=== PATIENT | male | born 1935 | race Caucasian/White ===

== ENCOUNTER 2017-12-19 11:47 | Emergency (ER) | payer OTHER, MEDICAID ==
[~2017-12-19] VITALS: Ht 170.2 cm; Wt 72.6 kg
[~2017-12-19 11:47] MED LIST: LANTUS SOL100 UNIT/1 SUBQ
[2017-12-19 12:09] VITALS: BP 109/65
[2017-12-19] MEDS ORDERED: Ampicillin/Sulbactam Sod 3 GM in NS 110 ML IV SCH (12:45)
[2017-12-19 13:24] LABS: BASOPHILS % (AUTO) 0.7 % (0.0-2.0); EOSINOPHILS % (AUTO) 3.4 % (0.0-3.0); HEMATOCRIT 34.6 % (42.0-52.0); HEMOGLOBIN 11.6 G/DL (14.2-18.0); LYMPHOCYTES % (AUTO) 4.8 % (20.0-45.0); MEAN CORPUSCULAR VOLUME 88 FL (80-99); MONOCYTES % (AUTO) 7.3 % (1.0-10.0); NEUTROPHILS % (AUTO) 83.8 % (45.0-75.0); PLATELET COUNT 177 K/UL (150-450); RED BLOOD COUNT 3.93 M/UL (4.70-6.10); RED CELL DISTRIBUTION WIDTH 12.3 % (11.6-14.8); WHITE BLOOD COUNT 9.4 K/UL (4.8-10.8)
[2017-12-19 13:29] LABS: ANION GAP 9 mmol/L (5-15); BLOOD UREA NITROGEN 41 mg/dL (7-18); CALCIUM 8.8 MG/DL (8.5-10.1); CARBON DIOXIDE 28 MMOL/L (21-32); CHLORIDE 101 MMOL/L (98-107); CREATININE 1.9 MG/DL (0.55-1.30); POTASSIUM 3.7 MMOL/L (3.5-5.1); SODIUM 138 MMOL/L (136-145)
[2017-12-19 13:42] LABS: ALANINE AMINOTRANSFERASE 31 U/L (12-78); ALBUMIN 3.2 G/DL (3.4-5.0); ALBUMIN/GLOBULIN RATIO 0.8 (1.0-2.7); ALKALINE PHOSPHATASE 129 U/L (46-116); ASPARTATE AMINO TRANSFERASE 24 U/L (15-37); BILIRUBIN,TOTAL 0.6 MG/DL (0.2-1.0); CKMB 1.7 NG/ML (0.0-3.6); CREATINE KINASE 52 U/L (26-308)
[2017-12-19] MEDS ORDERED: Unasyn 3gm Inj ONE (13:51)
[2017-12-19] MEDS ORDERED: FUROSEMIDE20 M1 ORAL (14:06)
[2017-12-19] MEDS ORDERED: ZOFRAN4 M3 ORAL (14:06)
[2017-12-19] MEDS ORDERED: ALLOPURINOL100 M1 ORAL (14:06)
[2017-12-19] MEDS ORDERED: STARLIX60 MG ORAL (14:06)
[2017-12-19] MEDS ORDERED: FOLIC ACID1 MG ORAL (14:06)
[2017-12-19] MEDS ORDERED: PATANOL1 DROP OD (14:06)
[2017-12-19] MEDS ORDERED: BENADRYL25 MG ORAL (14:06)
[2017-12-19] MEDS ORDERED: FERROUS SULFAT325 MG ORAL (14:06)
[2017-12-19] MEDS ORDERED: NAMENDA5 MG ORAL (14:06)
[2017-12-19] MEDS ORDERED: CRESTOR10 M2 ORAL (14:06)
[2017-12-19] MEDS ORDERED: IPRATROPIU0.2 MG/1 M HHN (14:06)
[2017-12-19] MEDS ORDERED: ACETAMINOP160 MG/54 ORAL (14:06)
[2017-12-19 15:51] VITALS: BP 112/68
--- NOTE | 2017-12-19 15:54 | Emergency Room Report ---
History of Present Illness General Chief Complaint: Fever Source: Patient, EMS Present Illness HPI Patient is a 82-year-old male sent in by long term after increased fever. Patient had gradual onset of symptoms the patient was noted to have a history of sternotomy. the patient denied any cough. He reported having some leg swelling. He reported having some fever. The patient cannot state where he lives. History is limited by patient's confusion. Allergies: Coded Allergies: No Known Allergies (Unverified , 12/09/13) Patient History Past Medical History: see triage record Reviewed Nursing Documentation: PMH: Agreed, PSxH: Agreed Nursing Documentation-PMH Hx Cardiac Problems: No Hx Diabetes: Yes Hx Cancer: No Hx Gastrointestinal Problems: No Hx Neurological Problems: Yes Hx Weakness: Yes Hx Fatigue: Yes Review of Systems All Other Systems: limited - by confusion Physical Exam Vital Signs Date Time Temp Pulse Resp B/P (MAP) Pulse Ox O2 Delivery O2 Flow Rate FiO2 12/19/17 11:49 98.8 92 18 109/65 97 Room Air 98.8 Sp02 EP Interpretation: reviewed, normal General Appearance: normal inspection, well appearing, no apparent distress, alert, GCS 15 Head: atraumatic ENT: normal ENT inspection, hearing grossly normal, normal voice Neck: normal inspection, full range of motion, supple, no bony tend Respiratory: normal inspection, lungs clear, normal breath sounds, no respiratory distress, no retraction, no wheezing Cardiovascular #1: regular rate, rhythm, no edema Gastrointestinal: normal inspection, normal bowel sounds, non tender, soft, no guarding, no hernia Genitourinary: no CVA tenderness Musculoskeletal: normal inspection, back normal, normal range of motion Neurologic: normal inspection, alert, oriented x3, responsive, manager auto III-XII nml as tested, speech normal Psychiatric: normal inspection, judgement/insight normal, mood/affect normal Skin: normal inspection, normal color, no rash Medical Decision Making Diagnostic Impression: Primary Impression: Pneumonia ER Course Patient presented for fever. Differential diagnosis included wasn't limited to pneumonia, urinary tract infection, drug fever, allergic reaction, sepsis, cholecystitis, among others.Because of complexity of patient's case laboratory testing and imaging studies were ordered. EKG interpreted by me as normal sinus rhythm with a rate of [address] or T wave changes. Chest x-ray one view interpreted by me showed questionable left-sided infiltrate patient was given IV antibiotics. Blood cultures were drawn. Patient was discussed with [facility] physician who agreed to accept the patient transfer.The patient's initial troponin was noted to be nondiagnostic per patient was given aspirin empirically. Labs Test 12/19/17 13:00 White Blood Count 9.4 K/UL (4.8-10.8) Red Blood Count 3.93 M/UL (4.70-6.10) Hemoglobin 11.6 G/DL (14.2-18.0) Hematocrit 34.6 % (42.0-52.0) Mean Corpuscular Volume 88 FL (80-99) Mean Corpuscular Hemoglobin 29.5 PG (27.0-31.0) Mean Corpuscular Hemoglobin Concent 33.5 G/DL (32.0-36.0) Red Cell Distribution Width 12.3 % (11.6-14.8) Platelet Count 177 K/UL (150-450) Mean Platelet Volume 7.4 FL (6.5-10.1) Neutrophils (%) (Auto) 83.8 % (45.0-75.0) Lymphocytes (%) (Auto) 4.8 % (20.0-45.0) Monocytes (%) (Auto) 7.3 % (1.0-10.0) Eosinophils (%) (Auto) 3.4 % (0.0-3.0) Basophils (%) (Auto) 0.7 % (0.0-2.0) Prothrombin Time 10.7 SEC (9.30-11.50) Prothromb Time International Ratio 1.0 (0.9-1.1) Activated Partial Thromboplast Time 41 SEC (23-33) Sodium Level 138 MMOL/L (136-145) Potassium Level 3.7 MMOL/L (3.5-5.1) Chloride Level 101 MMOL/L (98-107) Carbon Dioxide Level 28 MMOL/L (21-32) Anion Gap 9 mmol/L (5-15) Blood Urea Nitrogen 41 mg/dL (7-18) Creatinine 1.9 MG/DL (0.55-1.30) Estimat Glomerular Filtration Rate mL/min (>60) Glucose Level 165 MG/DL (74-106) Lactic Acid Level 0.90 mmol/L (0.66-2.22) Calcium Level 8.8 MG/DL (8.5-10.1) Total Bilirubin 0.6 MG/DL (0.2-1.0) Aspartate Amino Transf (AST/SGOT) 24 U/L (15-37) Alanine Aminotransferase (ALT/SGPT) 31 U/L (12-78) Alkaline Phosphatase 129 U/L (46-116) Total Creatine Kinase 52 U/L (26-308) Creatine Kinase MB 1.7 NG/ML (0.0-3.6) Creatine Kinase MB Relative Index 3.2 Troponin I 0.576 ng/mL (0.000-0.056) Total Protein 7.0 G/DL (6.4-8.2) Albumin 3.2 G/DL (3.4-5.0) Globulin 3.8 g/dL Albumin/Globulin Ratio 0.8 (1.0-2.7) Last Vital Signs Date Time Temp Pulse Resp B/P (MAP) Pulse Ox O2 Delivery O2 Flow Rate FiO2 12/19/17 15:51 98.8 87 20 112/68 96 Room Air 98.8 Status: unchanged Disposition: XFER T-TRM HOSP Condition: Serious Referrals: MATTHEW CALLAHAN (PCP) Aston Alarcon Dec 19, 2017 15:54
[2017-12-19] MEDS ORDERED: Aspirin Baby 81mg ORAL ONE (16:00)
--- NOTE | 2017-12-19 16:27 | Diagnostic Imaging Report ---
Indication: Shortness of breath, fever Technique: One view of the chest Comparison: 12/11/2013 Findings: There is retrocardiac infiltrate. There is bilateral left greater than right pleural effusions. The heart is enlarged. Evidence of prior CABG. There is right basilar atelectasis Impression: Left greater than right pleural effusions Left basilar infiltrate
[2017-12-19 16:30] VITALS: BP 112/68
--- NOTE | 2017-12-20 18:37 | Cardiology Report ---
APPROVED REPORT EKG Measurement Heart [id number] Sinus rhythm with 1st degree AV block with premature atrial complexes Anterior infarct, age undetermined Abnormal ECG
== END 2017-12-19 20:01 | disposition short-term general hospital (02) ==
LOC: EDBD 11:47 → EMR 14:30
DX: J18.9 Pneumonia, unspecified organism (principal); R41.0 Disorientation, unspecified; E11.9 Type 2 diabetes mellitus without complications
CPT/HCPCS: 36415; 71045; 80053; 82550; 82553; 83605; 84484; 85025; 85610; 85730; 86710; 87040; 93005; 96374; 99285

== ENCOUNTER 2019-07-15 07:09 | Inpatient (IN) | payer MEDICARE, MEDICAID ==
[~2019-07-15] VITALS: Ht 167.6 cm; Wt 66.5 kg
[2019-07-15] VITALS (7 sets, daily range): BP systolic 114–172; BP diastolic 56–82
[~2019-07-15 07:09] MED LIST changes: +ACETAMINOP160 MG/54 ORAL; +ALLOPURINOL100 M1 ORAL; +BENADRYL25 MG ORAL; +CRESTOR10 M2 ORAL; +FERROUS SULFAT325 MG ORAL; +FOLIC ACID1 MG ORAL; +FUROSEMIDE20 M1 ORAL; +IPRATROPIU0.2 MG/1 M HHN; +NAMENDA5 MG ORAL; +PATANOL1 DROP BOTH EYES; +STARLIX60 MG ORAL; +ZOFRAN4 M3 ORAL
--- NOTE | 2019-07-15 07:20 | NUR ---
ED Nurse Note: PT AAOX1, VSS. NO ACUTE DISTRESS. PATIENT BROUGHT IN BY [facility] RA 60 FROM [facility] C/O ALTERED MENTAL STATUS X 0600. AT BED SIDE.
--- NOTE | 2019-07-15 07:22 | Emergency Room Report ---
History of Present Illness General Chief Complaint: Altered Mental Status Source: Patient Present Illness HPI Disclaimer: Please note that this report is being documented using [employer] technology. This can lead to erroneous entry secondary to incorrect interpretation by the dictating instrument. HPI: 84-year-old male with a history of hypertension, hyperlipidemia, diabetes, CAD status post CABG presents from his senior care facility for evaluation of altered mental status. The patient was last seen normal approximately 11 PM last evening. On wellness checks this morning at 6 AM staff found him somnolent and increasingly confused. Reportedly, his baseline is conversant, oriented to self. Unknown what his ambulation status is. No reported illness according to EMS in the past few weeks. They found him saturating 92% on room air. Fingerstick glucose was 96. EMS states that on the ride to the hospital the patient became lucid and was able to correctly say his name, age and date of . By the time they arrived to our emergency department he was again somnolent, nonverbal. POLST form accompanying the patient from his facility states he is full code PMH: Hypertension, hyperlipidemia, diabetes, CAD PSH: CABG noted in medical chart Allergies: None reported Social Hx: None reported Allergies: Coded Allergies: No Known Allergies (Unverified , 12/09/13) Nursing Documentation-PMH Past Medical History: No History, Except For Hx Cardiac Problems: No Hx Diabetes: Yes Hx Cancer: No Hx Gastrointestinal Problems: No Hx Neurological Problems: Yes Hx Weakness: Yes Hx Fatigue: Yes Review of Systems All Other Systems: limited - Could not obtain due to clinical condition Physical Exam Vital Signs Date Time Temp Pulse Resp B/P (MAP) Pulse Ox O2 Delivery O2 Flow Rate FiO2 07/15/19 07:11 98.1 72 16 160/79 (106) 94 Room Air General: Somnolent, arousable to minimal stimuli but nonverbal responses HEENT: NC/AT. No scalp or face hematomas, lacerations or abrasions. Pupils are 4 mm and reactive bilaterally. EOMI. no facial droop. Dry mucous membranes Neck: Supple, trachea midline Chest Wall: No tenderness, no deformity Cardiovascular: Regular rate and rhythm. There is possibly a systolic ejection murmur at the left sternal border however is difficult to appreciate Resp: Normal work of breathing. No cough, wheezing or crackles appreciated Abdomen: Abdomen is soft, nondistended. Nontender Skin: Intact. No abrasions, laceration or rash over the exposed skin MSK: Normal tone and bulk. Moving all extremities. No obvious deformity. No edema over the lower extremities Neuro: Somnolent, arousable to mild stimulation. GCS is 9. E2, V2, M4 facial expressions are symmetrical Medical Decision Making Diagnostic Impression: Primary Impression: Pneumonia Additional Impressions: UTI (urinary tract infection) Encephalopathy CRF (chronic renal failure) ER Course 84-year-old male presents for evaluation of altered mental status with last known normal approximately 11 PM this evening. EMS stated he was lucid and again deteriorated on route. He arrives with stable vital signs, nonlabored breathing, no tachycardia and afebrile. He has no focal deficits though is very somnolent falling asleep during exam immediately after opening his eyes after a mild stimulation. We will start broad metabolic and infectious work- up. No reported head injury and there are no outward signs of trauma but will obtain CT scan of the head if no other source for his altered mentation is identified. Laboratory Tests Test 07/15/19 07:15 07/15/19 07:31 White Blood Count 9.8 K/UL (4.8-10.8) Red Blood Count 4.02 M/UL (4.70-6.10) L Hemoglobin 12.2 G/DL (14.2-18.0) L Hematocrit 36.1 % (42.0-52.0) L Mean Corpuscular Volume 90 FL (80-99) Mean Corpuscular Hemoglobin 30.2 PG (27.0-31.0) Mean Corpuscular Hemoglobin Concent 33.7 G/DL (32.0-36.0) Red Cell Distribution Width 12.1 % (11.6-14.8) Platelet Count 201 K/UL (150-450) Mean Platelet Volume 5.7 FL (6.5-10.1) L Neutrophils (%) (Auto) 73.4 % (45.0-75.0) Lymphocytes (%) (Auto) 14.8 % (20.0-45.0) L Monocytes (%) (Auto) 6.2 % (1.0-10.0) Eosinophils (%) (Auto) 4.7 % (0.0-3.0) H Basophils (%) (Auto) 0.9 % (0.0-2.0) Sodium Level 144 MMOL/L (136-145) Potassium Level 4.0 MMOL/L (3.5-5.1) Chloride Level 108 MMOL/L (98-107) H Carbon Dioxide Level 28 MMOL/L (21-32) Anion Gap 8 mmol/L (5-15) Blood Urea Nitrogen 49 mg/dL (7-18) H Creatinine 1.9 MG/DL (0.55-1.30) H Estimate Glomerular Filtration Rate mL/min (>60) Glucose Level 98 MG/DL (74-106) Lactic Acid Level 0.60 mmol/L (0.4-2.0) Calcium Level 9.8 MG/DL (8.5-10.1) Phosphorus Level 3.9 MG/DL (2.5-4.9) Magnesium Level 2.3 MG/DL (1.8-2.4) Total Bilirubin 0.7 MG/DL (0.2-1.0) Aspartate Amino Transferase (AST) 21 U/L (15-37) Alanine Aminotransferase (ALT) 20 U/L (12-78) Alkaline Phosphatase 151 U/L (46-116) H Total Creatine Kinase 41 U/L (26-308) Creatine Kinase MB 1.3 NG/ML (0.0-3.6) Creatine Kinase MB Relative Index 3.1 Troponin I 0.016 ng/mL (0.000-0.056) Pro-B-Type Natriuretic Peptide 919 pg/mL (0-125) H Total Protein 7.7 G/DL (6.4-8.2) Albumin 3.2 G/DL (3.4-5.0) L Globulin 4.5 g/dL Albumin/Globulin Ratio 0.7 (1.0-2.7) L Urine Color Pale yellow Urine Appearance Slightly cloudy Urine pH 5 (4.5-8.0) Urine Specific [place] 1.015 (1.005-1.035) Urine Protein 2+ (NEGATIVE) H Urine Glucose (UA) Negative (NEGATIVE) Urine Ketones Negative (NEGATIVE) Urine Blood 2+ (NEGATIVE) H Urine Nitrite Negative (NEGATIVE) Urine Bilirubin Negative (NEGATIVE) Urine Urobilinogen Normal MG/DL (0.0-1.0) Urine Leukocyte Esterase 3+ (NEGATIVE) H Urine RBC 10-15 /HPF (0 - 0) H Urine WBC Tntc /HPF (0 - 0) H Urine Squamous Epithelial Cells Occasional /LPF Urine Bacteria Moderate /HPF (NONE) H EKG Diagnostic Results EKG Time: :27 Rate: normal Rhythm: NSR ST Segments: no acute changes Other Impression Sinus rhythm, normal axis, prolonged CA interval at 2 1 4 ms consistent with first-degree AV block. No ST segment changes. Rhythm Strip Diag. Results Rhythm Strip Time: :27 EP Interpretation: yes Rate: 60s Rhythm: NSR, no PVC's, no ectopy Chest X-Ray Diagnostic Results Chest X-Ray Diagnostic Results : Chest X-Ray Ordered: Yes # of Views/Limited/Complete: 1 View Indication: Other - Altered mental status EP Interpretation: Yes Interpretation: other - Cardiomegaly, questionable infiltrate left lower lobe Impression: Other - Possible infiltrate left lower lobe Electronically Signed by: Electronically signed by Dr. Genaro Anthony Reevaluation Time: 09:39 Last Vital Signs Date Time Temp Pulse Resp B/P (MAP) Pulse Ox O2 Delivery O2 Flow Rate FiO2 07/15/19 07:11 98.1 72 16 160/79 (106) 94 Room Air Status: unchanged Reevaluation Impression CT scan of the head shows no acute changes but is consistent with atrophy and chronic small vessel disease. Questionable infiltrate on the left lower lobe on x-ray though somewhat obscured by the enlarged heart. Labs show ashutosh urinary tract infection the patient received ceftriaxone and azithromycin. Creatinine is elevated though unchanged from the value of 1.9 seen in 2018. No more recent studies are available. Continue IV fluids. He will be admitted to the hospital for UTI and encephalopathy with possible pneumonia. Disposition: ADMITTED INPATIENT Condition: Stable Genaro Anthony MD Jul 15, 2019 07:22
--- NOTE | 2019-07-15 07:40 | NUR ---
ED Nurse Note: BLOOD, URINE, AND X-RAY COMPLETE.
[2019-07-15 08:20] LABS: BASOPHILS % (AUTO) 0.9 % (0.0-2.0); EOSINOPHILS % (AUTO) 4.7 % (0.0-3.0); HEMATOCRIT 36.1 % (42.0-52.0); HEMOGLOBIN 12.2 G/DL (14.2-18.0); LYMPHOCYTES % (AUTO) 14.8 % (20.0-45.0); MEAN CORPUSCULAR VOLUME 90 FL (80-99); MONOCYTES % (AUTO) 6.2 % (1.0-10.0); NEUTROPHILS % (AUTO) 73.4 % (45.0-75.0); PLATELET COUNT 201 K/UL (150-450); RED BLOOD COUNT 4.02 M/UL (4.70-6.10); RED CELL DISTRIBUTION WIDTH 12.1 % (11.6-14.8); WHITE BLOOD COUNT 9.8 K/UL (4.8-10.8)
--- NOTE | 2019-07-15 08:24 | NUR ---
ED Nurse Note: SENT TO CT
[2019-07-15 08:26] LABS: APPEARANCE,URINE SLIGHTLY CLOUDY; BILIRUBIN, URINE NEGATIVE (NEGATIVE); COLOR,URINE PALE YELLOW; GLUCOSE, URINE (UA) NEGATIVE (NEGATIVE); KETONES,URINE NEGATIVE (NEGATIVE); LEUKOCYTE ESTERASE ,URINE 3+ (NEGATIVE); NITRITE,URINE NEGATIVE (NEGATIVE); PH,URINE 5 (4.5-8.0); PROTEIN,URINE 2+ (NEGATIVE); UROBILINOGEN,URINE NORMAL MG/DL (0.0-1.0)
[2019-07-15 08:36] LABS: ANION GAP 8 mmol/L (5-15); BLOOD UREA NITROGEN 49 mg/dL (7-18); CALCIUM 9.8 MG/DL (8.5-10.1); CARBON DIOXIDE 28 MMOL/L (21-32); CHLORIDE 108 MMOL/L (98-107); CREATININE 1.9 MG/DL (0.55-1.30); SODIUM 144 MMOL/L (136-145)
[2019-07-15 08:51] LABS: ALANINE AMINOTRANSFERASE 20 U/L (12-78); ALBUMIN 3.2 G/DL (3.4-5.0); ALBUMIN/GLOBULIN RATIO 0.7 (1.0-2.7); ALKALINE PHOSPHATASE 151 U/L (46-116); BILIRUBIN,TOTAL 0.7 MG/DL (0.2-1.0); CKMB 1.3 NG/ML (0.0-3.6); CREATINE KINASE 41 U/L (26-308); PHOSPHORUS 3.9 MG/DL (2.5-4.9)
[2019-07-15 09:00] LABS: ASPARTATE AMINO TRANSFERASE 21 U/L (15-37)
[2019-07-15] MEDS ORDERED: cefTRIAXone 1 GM in NS 55 ML IVPB ONE (09:00)
--- NOTE | 2019-07-15 09:22 | Diagnostic Imaging Report ---
EXAM: CT Head Without Intravenous Contrast CLINICAL HISTORY: AMS TECHNIQUE: Axial computed tomography images of the head brain without intravenous contrast. CTDI is 62.70 mGy and DLP is 1489.10 mGy-cm. One or more of the following dose reduction techniques were used: automated exposure control, adjustment of the mA and or kV according to patient size, use of iterative reconstruction technique. Coronal reformatted images were created and reviewed. COMPARISON: No relevant prior studies available. FINDINGS: Brain: Generalized parenchymal volume loss, likely age-related. Periventricular white matter hypodensities. No evidence of acute intracranial hemorrhage. No mass effect or midline shift. Ventricles: Unremarkable. No ventriculomegaly. Bones joints: Unremarkable. No acute fracture. Soft tissues: Unremarkable. Sinuses: Mild mucosal thickening throughout the ethmoid air cells and trace fluid level in the sphenoid sinus. Mastoid air cells: Unremarkable as visualized. No mastoid effusion. Vascular: Atherosclerotic calcifications of bilateral vertebral arteries and the cavernous portions of bilateral ICAs. IMPRESSION: 1. No acute intracranial findings. 2. Periventricular white matter hypodensities, likely related to chronic small vessel disease changes. 3. Generalized cerebral parenchymal volume loss, likely age-related. 4. Mild mucosal thickening throughout the ethmoid air cells and trace fluid level in the sphenoid sinus. Correlate clinically for sinusitis.
[2019-07-15] MEDS ORDERED: Azithromycin 500 MG in NS 275 ML IV ONE (09:30)
--- NOTE | 2019-07-15 09:56 | Diagnostic Imaging Report ---
EXAM: XR Chest, 1 View CLINICAL HISTORY: Shortness of breath TECHNIQUE: Frontal view of the chest. COMPARISON: No relevant prior studies available. FINDINGS: Lungs: Patchy consolidation in the left mid and lower lung, concerning for pneumonia versus atelectasis. Pleural space: Possible small left pleural effusion. Scattered calcified pleural plaques in the right hemithorax. Heart: Unremarkable. No cardiomegaly. Mediastinum: Unremarkable. Bones joints: Patient is status post median sternotomy. Vasculature: Atherosclerotic calcifications are noted within the aortic arch. IMPRESSION: 1. Patchy consolidation in the left mid and lower lung, concerning for pneumonia versus atelectasis. 2. Possible small left pleural effusion. 3. Scattered calcified pleural plaques in the right hemithorax.
--- NOTE | 2019-07-15 10:29 | NUR ---
NURSE NOTES: Received report from charge nurse DENAE Askew. Awaiting patient.
--- NOTE | 2019-07-15 10:51 | NUR ---
NURSE NOTES: pt just arrived from ed, appears pale, in stable condition, dr Steinberg made aware in person (during rounds) md is to see the patient.
--- NOTE | 2019-07-15 11:00 | NUR ---
NURSE NOTES: Patient arrived to unit via gurney by engineer technician. Belongings list signed, no belongings. Patient lethargic, arousable by name and shaking. On room air, no signs of distress or labored breathing. IVs intact and patent. Bed in lowest position with HOB elevated. Cover MD, Dr. Zaman, was asked for admission orders in person during rounds. Will continue to monitor.
[2019-07-15] MEDS ORDERED: Albuterol/Ipratropium 3ml neb HHN PRN (12:00)
[2019-07-15] MEDS ORDERED: Acetaminophen 650 MG SUPP RECTAL PRN ×2 (12:00)
--- NOTE | 2019-07-15 12:47 | NUR ---
CASE MANAGEMENT: INITIAL REVIEW 84 YO M ELIZABETH FROM [facility] CC: AMS PMHx: CAD. CABG. DM. HTN. HLD. SI:UTI. AMS. T 98.2 HR 72 RR 16 B/P 160/79 SATS 94% ON RA CL 108 BUN 49 CR 1.9 ALP 151 BNP 919 IS: NS BOLUS X2 CEFTRIAXONE IV X1 AZITHROMYCIN IV X1 PATIENT ADMITTED TO MED/SURG 07/15/2019 @ 1015 DCP: PATIENT TO BE DISCHARGED TO SNF ONCE MEDICALLY CLEARED. PLAN OF CARE: IV ANTIBx Addendum: 07/16/19 at 1026 by Iona Lozada INTERQUAL MET
[2019-07-15] MEDS ORDERED: Vancomycin 1 GM in D5W 275 ML IV SCH (13:00)
[2019-07-15] MEDS: D5NS 1,000 ML IV SCH (13:02)
--- NOTE | 2019-07-15 13:35 | History and Physical ---
History of Present Illness General Date patient seen: Jul 15, 2019 Reason for Hospitalization: Altered Mental Status Present Illness HPI Edy Dubon is a 84 yo man with PMH of IDDM (type II), CKD (creatinine ~1.6 baseline), HTN, HLD, COPD (not on home O2), CHF (unknown EF), dementia (AAOx1-2 at baseline), Afib (not on A/C), CAD, GERD, and iron deficiency anemia who presented from [facility] with AMS. Patient unable to provide history due to AMS. History obtained from staff at [facility], chart review, ED physician, and RN. Patient last known to be at baseline around 11PM last night. This morning, when nursing went to assess patient, found to be somnolent and confused , difficult to arouse. Per staff, patient usually verbally responsive, AAOx1-2 ( name and place) but very forgetful. Patient was noted to have slight generalized tremors, which is new for patient, but no fevers recorded and no history of seizures. Per staff, no known recent cough, nausea/vomiting, pain, diarrhea, urinary symptoms, fever, chills, headache, chest pain, SOB. Per EMS reports, patient had waxing/waning mental status, was intermittent lucid and able to state name and but then became somnolent again. No reported seizure like activity or tremors noted by EMS records. In the ED, patient noted to be afebrile and hemodynamically stable, satting well on RA. Labs notable for no leukocytosis, mild anemia, KELLEN BUN/Cr 49/1.9, lactate 0.6, troponin 0.016, BNP 919. UA with negative nitrite but 3+ leuk est, 10-15 RBC, trace WBC, moderate bacteria. CXR with patchy consolidation in L mid and lower lung carter concerning for PNA vs atelectasis. CT head without acute findings. PMH: IDDM (type II), CKD (creatinine ~1.6 baseline), HTN, HLD, COPD (not on home O2), CHF (unknown EF), dementia (AAOx1-2 at baseline), Afib (not on A/C), CAD, GERD, and iron deficiency anemia PSH: No reported surgical hx from SNF records Meds: tylenol PRN, lantus 23U qhs, allopurinol 100mg PO daily, aspirin 81mg PO daily, cilostazol 100mg PO daily, flonase, folic acid daily, lasix 20mg PO daily , duonebs PRN, nateglinide 60mg PO TID, protonix 40mg PO daily, crestor 10mg PO qhs, melatonin 5mg PO qhs, memantine 10mg PO BID, miralax daily, ferrous sulfate 325mg PO BID Allergies: NKDA FH: No reported family hx from SNF records SH: Lives at [facility]. Reportedly has family in [place] per staff at facility but no known contact numbers for family. Only contact is a SW from the [place] [facility] ([phone]. ROS: Unable to obtain full ROS due to patient's mental status. See HPI above. Allergies: Coded Allergies: No Known Allergies (Unverified , 12/09/13) Medication History Scheduled Allopurinol* (Allopurinol*), 100 MG ORAL DAILY, (Reported) Ferrous Sulfate* (Ferrous Sulfate*), 325 MG ORAL DAILY, (Reported) Folic Acid* (Folic Acid*), 1 MG ORAL DAILY, (Reported) Furosemide* (Lasix*), 20 MG ORAL DAILY, (Reported) Insulin Glargine (Lantus), 0 SUBQ BEDTIME, (Reported) Memantine Hcl* (Namenda*), 5 MG ORAL DAILY, (Reported) Nateglinide* (Starlix*), 60 MG ORAL THREE TIMES A DAY, (Reported) Rosuvastatin Calcium* (Crestor*), 10 MG ORAL DAILY, (Reported) Scheduled PRN Acetaminophen* (Acetaminophen*), 650 MG ORAL Q6H PRN for Mild Pain/Temp > 100.5, (Reported) Diphenhydramine Hcl* (Benadryl*), 25 MG ORAL Q6H PRN for Itching, (Reported) Ipratropium Cawood 0.5MG/2.5ML (Ipratropium Cawood 0.5MG/2.5ML), 0.5 MG HHN Q6H PRN for Shortness of Breath, (Reported) Ondansetron* (Zofran*), 4 MG ORAL Q6H PRN for Nausea & Vomiting, (Reported) Miscellaneous Medications Olopatadine (Patanol), 1 DROP OD, (Reported) Patient History History Provided By: Medical Record, EMS, Caregiver Healthcare decision maker Resuscitation status Advanced Directive on File Full Code according to POLST from [facility] Review of Systems All Other Systems: negative except mentioned in HPI - Unable to obtain full ROS due to patient's mental status Physical Exam General Appearance: lethargic, other - Opens eyes to voice and painful stimuli but not verbally responsive, lethargic, no acute distress Lines, tubes and drains: peripheral HEENT: normocephalic, atraumatic Neck: supple Respiratory/Chest: other - Coarse breath sounds bilaterally, no wheezing Cardiovascular/Chest: normal peripheral pulses, normal rate, regular rhythm Abdomen: normal bowel sounds, non tender, soft Extremities: non-tender, normal capillary refill, no edema Skin Exam: warm/dry Neurologic: other - Lethargic, difficult to arouse, opens eyes to command but not verbally response. No tremors noted Last 24 Hour Vital Signs Date Time Temp Pulse Resp B/P (MAP) Pulse Ox O2 Delivery O2 Flow Rate FiO2 07/15/19 12:00 98.4 66 19 134/70 (91) 94 07/15/19 11:16 96.4 79 12 142/82 (102) 96 07/15/19 10:35 97.6 81 14 157/71 96 Room Air 07/15/19 10:35 98.0 70 11 172/67 96 Room Air 07/15/19 08:20 98.0 70 11 172/67 96 Room Air 07/15/19 07:20 75 16 Room Air 07/15/19 07:20 97.6 65 12 133/56 94 Room Air 07/15/19 07:11 98.1 72 16 160/79 (106) 94 Room Air Laboratory Tests Test 07/15/19 07:15 07/15/19 07:31 White Blood Count 9.8 K/UL (4.8-10.8) Red Blood Count 4.02 M/UL (4.70-6.10) L Hemoglobin 12.2 G/DL (14.2-18.0) L Hematocrit 36.1 % (42.0-52.0) L Mean Corpuscular Volume 90 FL (80-99) Mean Corpuscular Hemoglobin 30.2 PG (27.0-31.0) Mean Corpuscular Hemoglobin Concent 33.7 G/DL (32.0-36.0) Red Cell Distribution Width 12.1 % (11.6-14.8) Platelet Count 201 K/UL (150-450) Mean Platelet Volume 5.7 FL (6.5-10.1) L Neutrophils (%) (Auto) 73.4 % (45.0-75.0) Lymphocytes (%) (Auto) 14.8 % (20.0-45.0) L Monocytes (%) (Auto) 6.2 % (1.0-10.0) Eosinophils (%) (Auto) 4.7 % (0.0-3.0) H Basophils (%) (Auto) 0.9 % (0.0-2.0) Sodium Level 144 MMOL/L (136-145) Potassium Level 4.0 MMOL/L (3.5-5.1) Chloride Level 108 MMOL/L (98-107) H Carbon Dioxide Level 28 MMOL/L (21-32) Anion Gap 8 mmol/L (5-15) Blood Urea Nitrogen 49 mg/dL (7-18) H Creatinine 1.9 MG/DL (0.55-1.30) H Estimat Glomerular Filtration Rate mL/min (>60) Glucose Level 98 MG/DL (74-106) Lactic Acid Level 0.60 mmol/L (0.4-2.0) Calcium Level 9.8 MG/DL (8.5-10.1) Phosphorus Level 3.9 MG/DL (2.5-4.9) Magnesium Level 2.3 MG/DL (1.8-2.4) Total Bilirubin 0.7 MG/DL (0.2-1.0) Aspartate Amino Transf (AST/SGOT) 21 U/L (15-37) Alanine Aminotransferase (ALT/SGPT) 20 U/L (12-78) Alkaline Phosphatase 151 U/L (46-116) H Total Creatine Kinase 41 U/L (26-308) Creatine Kinase MB 1.3 NG/ML (0.0-3.6) Creatine Kinase MB Relative Index 3.1 Troponin I 0.016 ng/mL (0.000-0.056) Pro-B-Type Natriuretic Peptide 919 pg/mL (0-125) H Total Protein 7.7 G/DL (6.4-8.2) Albumin 3.2 G/DL (3.4-5.0) L Globulin 4.5 g/dL Albumin/Globulin Ratio 0.7 (1.0-2.7) L Urine Color Pale yellow Urine Appearance Slightly cloudy Urine pH 5 (4.5-8.0) Urine Specific Arnold 1.015 (1.005-1.035) Urine Protein 2+ (NEGATIVE) H Urine Glucose (UA) Negative (NEGATIVE) Urine Ketones Negative (NEGATIVE) Urine Blood 2+ (NEGATIVE) H Urine Nitrite Negative (NEGATIVE) Urine Bilirubin Negative (NEGATIVE) Urine Urobilinogen Normal MG/DL (0.0-1.0) Urine Leukocyte Esterase 3+ (NEGATIVE) H Urine RBC 10-15 /HPF (0 - 0) H Urine WBC Tntc /HPF (0 - 0) H Urine Squamous Epithelial Cells Occasional /LPF Urine Bacteria Moderate /HPF (NONE) H Height (Feet): 5 Height (Inches): 6.00 Weight (Pounds): 190 Medications Current Medications Medications (Trade) Dose Ordered Sig/Breanna Route PRN Reason Start Time Stop Time Status Last Admin Dose Admin Acetaminophen (Tylenol) 650 mg Q4H PRN RECTAL Mild Pain (Pain Scale 1-3) 07/15/19 12:00 08/14/19 11:59 Acetaminophen (Tylenol) 650 mg Q4H PRN RECTAL fever 07/15/19 12:00 08/14/19 11:59 Albuterol/ Ipratropium (Albuterol/ Ipratropium) 3 ml Q6H PRN HHN Shortness of Breath 07/15/19 12:00 07/20/19 11:59 Azithromycin 500 mg/Dextrose 275 ml @ 275 mls/hr Q24H IV 07/16/19 10:00 07/23/19 09:59 Dextrose (Dextrose 50%) 25 ml Q30M PRN IV Hypoglycemia 07/15/19 12:15 08/14/19 12:14 Dextrose (Dextrose 50%) 50 ml Q30M PRN IV Hypoglycemia 07/15/19 12:15 08/14/19 12:14 Dextrose/Sodium Chloride 1,000 ml @ 75 mls/hr [id number] IV 07/15/19 12:59 08/14/19 12:58 07/15/19 13:02 Heparin Sodium (Porcine) (Heparin 5000 units/ml) 5,000 units EVERY 12 HOURS SUBQ 07/15/19 21:00 08/14/19 20:59 Insulin Aspart (NovoLOG) BEFORE MEALS AND HS SUBQ 07/15/19 16:30 08/14/19 16:29 Insulin Detemir (Levemir) 10 units BEDTIME SUBQ 07/15/19 21:00 08/14/19 20:59 Pantoprazole (Protonix) 40 mg DAILY IV 07/16/19 09:00 08/15/19 08:59 Piperacillin Sod/ Tazobactam Sod 3.375 gm/Sodium Chloride 110 ml @ 27.5 mls/hr EVERY 8 HOURS IVPB 07/15/19 14:00 07/20/19 13:59 Vancomycin HCl (Vanco rx to dose) 1 ea DAILY PRN MISC Per rx protocol 07/15/19 12:30 08/14/19 12:29 Vancomycin/Sodium Chloride 275 ml @ 137.5 mls/ hr ONCE ONCE IVPB 07/15/19 14:00 07/15/19 15:59 Assessment/Plan Status: unchanged Assessment/Plan: dEy Dubon is a 84 yo man with PMH of IDDM (type II), CKD (creatinine ~1.6 baseline), HTN, HLD, COPD (not on home O2), CHF (unknown EF), dementia (AAOx1-2 at baseline), Afib (not on A/C), CAD, GERD, and iron deficiency anemia who presented from [facility] with AMS, found with KELLEN, CXR concerning for developing PNA, and mild troponinemia likely 2/2 demand ischemia in setting of KELLEN on CKD, admitted for HCAP, KELLEN on CKD, and demand ischemia. #Likely HCAP #Possible UTI #hx COPD (not on home O2) - Afebrile without leukocytosis lactate 0.6 on admission - CXR with patchy consolidation in L mid and lower lung carter concerning for PNA vs atelectasis - UA with 3+ leuk est, 10-15 RBC, trace WBC, moderate bacteria - S/p azithro and ceftriaxone x1 in ED. Continue IV abx to cover for HCAP and possible UTI with zosyn 3.375 ODe1zzd (renally dosed) and vancomycin dose by trough and azithromycin 500mg IV (07/15- ). Plan for 5-7 days course pending clinical improvement. - Not requiring O2 at this time. No wheezing on exam or recent report of MARTINEZ/ SOB to suggest acute COPD exacerbation, no need for steroids at this time - F/U BCX - F/U UCX - Gentle IVF with D5NS@75cc/hr while NPO - Duonebs q6hrs PRN SOB/wheezing - Rectal tylenol PRN pain/fever, can change to PO once able to take PO #Encephalopathy likely 2/2 acute infections #Reported tremors at SNF #hx dementia (baseline AAOx1-2 and conversant) - ?rigors vs actual tremors, reportedly new at SNF - Treatment for infections as per above - CT head without acute findings - Check EEG given reported tremors, none noted on my exam or per RN report at [facility] - Consider neurology eval +/- MRI brain if mental status does not improve with treatment of infection - Keep NPO for now, swallow eval once mental status improves - Resume home memantine 10mg PO BID once mental status improves #KELLEN on CKD - Baseline creatinine ~1.6 based on [facility] records of Cr 1.6 from 03/2019 - Gentle IVF as per above - Hold home lasix - Monitor BMP and urine output #Mild troponinemia - Likely demand ischemia in setting of KELLEN on CKD and infection - EKG with NSR, 1st degree block and nonspecific T wave changes - Initial troponin 0.016, trend to downtrend #hx HTN, HLD #hx CHF (unknown EF) #hx Afib not on A/C #hx CAD - Hold home oral medications given AMS, resume when able to take PO - Holding home aspirin 81mg PO daily, crestor 10mg PO qhs, cilostazol 100mg PO daily - Hold home lasix until KELLEN resolves - Gentle IVF given CHF hx #hx GERD - Continue home protonix 40mg IV daily. Can change to PO once mental status improves #hx IDDM - Last A1C 6.8 from 05/2019 [facility] records - On lantus 23U qhs at SNF - Decrease to levemir 10U qhs given patient NPO - SSI lispro QACHS and monitor FS #Iron def anemia - Resume home ferrous sulfate 325mg PO BID once mental status improves FEN NPO until mental status improves IVF D5NS @75cc/hr Heparin subq DVT ppx Full Code from POLST from [facility] Discussed with staff and RN from [facility], discussed with ED physician, discussed with RN, attempted to call patient[facility] only contact [facility] but no answer. I spent 80 minutes on this patient encounter, including >50% on counseling and/or coordination of care. Additional time spent on reviewing of patient's chart and records from SNF facility. Navya Zaman M.D. Jul 15, 2019 13:35
[2019-07-15] MEDS ORDERED: Vancomycin 1.5gm/NS Premix IVPB ONE (14:00)
[2019-07-15] MEDS: Piperacillin/Tazobactam 3.375 GM in NS 110 ML IVPB SCH ×2 (14:29→21:43)
[2019-07-15] MEDS: NovoLOG Insulin Flexpen SUBQ SCH ×2 (16:30→20:08)
--- NOTE | 2019-07-15 19:20 | NUR ---
HAND-OFF: Report given to DENAE Shaw.
--- NOTE | 2019-07-15 19:56 | NUR ---
NURSE NOTES: Received patient awake in bed, lucid, AOx3. Spoke with Dr Alex about changing diet order now that patient is awake and lucid. Dr Alex asked for a trial with water, if patient tolerates can advance to [facility] diet. Will monitor blood glucose. D5NS running for IVF maintenance.
[2019-07-15] MEDS: Levemir Flexpen SUBQ SCH (20:08)
[2019-07-15] MEDS: Heparin 5000 units/ml inj SUBQ SCH (20:31)
[2019-07-16] VITALS: BP 126/67
[2019-07-16 04:00] VITALS: BP 138/64
[2019-07-16] MEDS: D5NS 1,000 ML IV SCH ×2 (04:57→15:39)
[2019-07-16] MEDS: Piperacillin/Tazobactam 3.375 GM in NS 110 ML IVPB SCH ×3 (05:50→21:24)
[2019-07-16] MEDS: NovoLOG Insulin Flexpen SUBQ SCH ×4 (06:05→21:19)
[2019-07-16 06:59] LABS: BASOPHILS % (AUTO) 0.9 % (0.0-2.0); EOSINOPHILS % (AUTO) 4.6 % (0.0-3.0); HEMATOCRIT 35.4 % (42.0-52.0); HEMOGLOBIN 11.9 G/DL (14.2-18.0); MEAN CORPUSCULAR VOLUME 89 FL (80-99); MONOCYTES % (AUTO) 6.2 % (1.0-10.0); NEUTROPHILS % (AUTO) 76.2 % (45.0-75.0); PLATELET COUNT 192 K/UL (150-450); RED BLOOD COUNT 3.98 M/UL (4.70-6.10); RED CELL DISTRIBUTION WIDTH 12.4 % (11.6-14.8); WHITE BLOOD COUNT 9.8 K/UL (4.8-10.8)
[2019-07-16 07:03] LABS: ANION GAP 5 mmol/L (5-15); BLOOD UREA NITROGEN 37 mg/dL (7-18); CALCIUM 9.3 MG/DL (8.5-10.1); CARBON DIOXIDE 29 MMOL/L (21-32); CHLORIDE 114 MMOL/L (98-107); CREATININE 1.9 MG/DL (0.55-1.30); POTASSIUM 4.5 MMOL/L (3.5-5.1); SODIUM 148 MMOL/L (136-145)
--- NOTE | 2019-07-16 07:13 | NUR ---
HAND-OFF: Report given to DENAE Moore.
--- NOTE | 2019-07-16 07:50 | NUR ---
NURSE NOTES: Patient received sleeping in bed. Breathing unlabored on room air, no signs of apparent distress observed. IV on right arm patent and intact, Zosyn and fluids running simultaneously. Patient to advance meal when water is tolerated. Condom catheter is intact. Bed locked in lowest position, bed alarm is on. Call light placed within reach, will continue to monitor.
[2019-07-16 08:00] VITALS: BP 131/66
[2019-07-16] MEDS: Pantoprazole Inj IV SCH (08:38)
[2019-07-16] MEDS: Heparin 5000 units/ml inj SUBQ SCH ×2 (08:49→20:46)
[2019-07-16] MEDS: Azithromycin 500 MG in D5W 275 ML IV SCH (10:22)
[2019-07-16 12:00] VITALS: BP 130/71
--- NOTE | 2019-07-16 14:13 | NUR ---
P.T Note: P.T evaluation completed. Pt is alert, oriented to self /person and place but not to time. Pt is periodically confused however cooperative and follows simple commands. NO c/o pain. Based on P.T evaluation, patient is already at baseline bedbound/w/c function level and not a candidate for skilled P.T service. Recommend DC to prior living arrangement. Thank your for this referral.
--- NOTE | 2019-07-16 14:51 | NUR ---
SWALLOW/SPEECH THERAPY NOTE: REFERRED BY DR SMITH (S) FOR A SWALLOWING EVALUATION, SEE FULL REPORT DYSPHAGIA RISK FACTORS FOR THIS 84 Y.O. ADVANCED AGED MALE: ACUTE PNA (L LL) AND H/O RECURRENT PNA IN 2017 AND 12/2013 AT [facility], UTI, AMS , CRF, RR [address] HEAD NEG FOR ACUTE HAS PERIVENTRICULAR WHITE MATTER HYPODENSITIES LIKELY DUE TO CHRONIC SMALL VESS ISCHEMIC DZ CHANGES. H/O DEMENTIA, GERD (ON MEDS AT SNF), COPD, PNA AND BRONCHITIS, DEPRESSION, GOUT, DM2 PER POLST OK TO HAVE LT TUBE FEEDINGS IF HE NEEDS. AT [facility] ON [facility] REGULAR TEXTURE DIET AND THIN LIQUIDS WITH BOOST GLUCOSE ONE BOX BID CURRENTLY ON A [facility]-MED REGULAR TEXTURE DIET AND THIN LIQUIDS BUT NO INTAKE IS RECORDED. PER RN CLIFTON THE PT IS NPO AND HAS IV MEDS. ALERT (ON ROOM AIR) AND ABLE TO EXPRESS BASIC NEEDS IN INTELLIGIBLE SPEECH. NEEDS REPETITION AT TIMES AND DOES NOT ALWAYS UNDERSTAND ORAL COMMANDS AND SOME DIRECTIONS. INITIAL IMPRESSIONS S/S OF AT LEAST A MILD ORAL PREP AND OROPHARYNGEAL DYSPHAGIA WITH INCREASED OVERALL TRANSIT TIMES. GROSSLY FUNCTIONAL LIPS, TONGUE ROM GOOD BUT SPEED SLOWER (DIFFICULT TO TEST STRENGTH), AND COUGH IS WEAK. GIVEN THIN LIQUIDS VIA STRAW 3 0Z WATER [place] SWALLOW PROTOCOL, ABLE TO SWALLOW SEQUENTIALLY BUT SLOWLY W/O OVERT ASPIRATION. ADMITS THAT SOMETIMES HE WILL COUGH ON WATER AT TIMES. GIVEN PUREED TSP, TOOK 5 SECONDS FOR SWALLOW AND SWALLOWED A 2ND TIME (?ORAL/PHARYNGEAL RESIDUE) WITH FAIR HYOLARYNGEAL EXCURSION, NO OVERT ASPIRATION BUT HAS SILENT ASPIRATION RISK. GIVEN MASTICATED SOLIDS (1/2 CRACKER) SLOWER CHEWING (MISSING ALL MOLARS) TOOK 15 SECONDS THEN SWALLOWED WITHOUT ORAL RESIDUE, NO OVERT ASPIRATION. GIVEN DEMENTIA DX HAS A SILENT ASPIRATION RISK AND HAS PNA NOW. PER PT POOR INTAKE DUE TO POOR APPETITE. RECOMMENDATIONS: COMPLETED MOD BARIUM SWALLOW STUDY TO FURTHER ASSESS SWALLOW, DETERMINE SILENT ASPIRATION AND ATTEMPT TRIAL TX IF PO GIVEN FOR QUALITY OF LIFE, CONTINUE WITH PO BUT [facility] SOFT CHOPPED DIET AND THIN LIQUIDS (ONE SMALL SIP AT A TIME) WITH OTHER POSTED ASP/REFLUX PRECAUTIONS AND ASSIST WITH MEALS. CONSIDER DIET TYPE AND HIGH ELIANE SUP PER RD (NO REPORT TO DATE). AT [facility] WAS GETTING BOOST GLUCOSE ONE BOX BID. SKILLED DYSPHGIA MANAGEMENT/TX WITH [employer] EVAL/TX FOR COMMUNICATION TIPS. EDUCATED/TRAINED RN (HEMANTH/CLIFTON) IN POSTED ASP/REFLUX PRECAUTIONS
[2019-07-16] MEDS: Vancomycin 1.25gm/NS Premix IVPB SCH (15:00)
--- NOTE | 2019-07-16 15:15 | NUR ---
CASE MANAGEMENT:REVIEW 07/16/19 SI: ENCEPHALOPATHY. PNA. 98.5 79 18 130/71 98% ON RA H/H-11.9/35.4 NA+148 BUN+37 IS: IV VANCOMYCIN Q24 IV AZITHROMYCIN Q24 IV ZOSYN Q8HRS IVF@75/HR : MED.SURG STATUS 4 EAST DCP; FROM [facility]
[2019-07-16 16:00] VITALS: BP 136/80
[2019-07-16] MEDS ORDERED: NS 500ML ONE (17:38)
--- NOTE | 2019-07-16 19:04 | NUR ---
HAND-OFF: Report given to Valeria PHILIPPE.
[2019-07-16 20:00] VITALS: BP 142/69
--- NOTE | 2019-07-16 20:25 | NUR ---
NURSE NOTES: Received patient awake in bed, oriented only to name and time. IV access asymptomatic, wrapped in kerlix, running abx. Will monitor blood sugar closely. Bed low and locked.
[2019-07-16] MEDS: Levemir Flexpen SUBQ SCH (21:20)
--- NOTE | 2019-07-16 22:08 | General Progress Note ---
Assessment/Plan Problem List: (1) Acute respiratory failure ICD Codes: J96.00 - Acute respiratory failure, unspecified whether with hypoxia or hypercapnia SNOMED: 32470172 (2) Metabolic encephalopathy ICD Codes: G93.41 - Metabolic encephalopathy SNOMED: 71115250 (3) HAP (hospital-acquired pneumonia) ICD Codes: J18.9 - Pneumonia, unspecified organism; Y95 - Nosocomial condition SNOMED: 103406364 (4) History of COPD ICD Codes: Z87.09 - Personal history of other diseases of the respiratory system SNOMED: 492361652 (5) Acute on chronic renal failure ICD Codes: N17.9 - Acute kidney failure, unspecified; N18.9 - Chronic kidney disease, unspecified SNOMED: 006090650 (6) Atrial fibrillation ICD Codes: I48.91 - Unspecified atrial fibrillation SNOMED: 00408306 (7) CAD (coronary artery disease) ICD Codes: I25.10 - Atherosclerotic heart disease of [place] coronary artery without angina pectoris SNOMED: 28750785 (8) HTN (hypertension) ICD Codes: I10 - HTN (hypertension) SNOMED: 34840021 (9) Respiratory insufficiency ICD Codes: R06.89 - Respiratory insufficiency SNOMED: 934073403 (10) UTI (urinary tract infection) ICD Codes: N39.0 - Urinary tract infection, site not specified SNOMED: 30363211 Status: progressing Assessment/Plan: Edy Dubon is a 84 yo man with PMH of IDDM (type II), CKD (creatinine ~1.6 baseline), HTN, HLD, COPD (not on home O2), CHF (unknown EF), dementia (AAOx1-2 at baseline), Afib (not on A/C), CAD, GERD, and iron deficiency anemia who presented from [facility] with AMS, found with KELLEN, CXR concerning for developing PNA, and mild troponinemia likely 2/2 demand ischemia in setting of KELLEN on CKD, admitted for HCAP, KELLEN on CKD, and demand ischemia. #Likely HCAP #Possible UTI #hx COPD (not on home O2) - Afebrile without leukocytosis lactate 0.6 on admission - CXR with patchy consolidation in L mid and lower lung carter concerning for PNA vs atelectasis - UA with 3+ leuk est, 10-15 RBC, trace WBC, moderate bacteria - S/p azithro and ceftriaxone x1 in ED. Continue IV abx to cover for HCAP and possible UTI with zosyn 3.375 [id number] (renally dosed) and vancomycin dose by trough and azithromycin 500mg IV (07/15- ). Plan for 5-7 days course pending clinical improvement. - Not requiring O2 at this time. No wheezing on exam or recent report of MARTINEZ/ SOB to suggest acute COPD exacerbation, no need for steroids at this time - F/U BCX - F/U UCX - Gentle IVF with D5NS@75cc/hr while NPO - Duonebs q6hrs PRN SOB/wheezing - Rectal tylenol PRN pain/fever, can change to PO once able to take PO - CUTTING AND SPLICING SUPERVISOR eval today for swallowing #Encephalopathy likely 2/2 acute infections - RESOLVING #Reported tremors at [facility] - EEG negative: no focal or lateralized slowing seen. No clear epileptiform discharges seen. Generalized slowing #hx dementia (baseline AAOx1-2 and conversant) - ?rigors vs actual tremors, reportedly new at [facility] - Treatment for infections as per above - CT head without acute findings - Keep NPO for now, swallow eval once mental status improves - Resume home memantine 10mg PO BID once mental status improves #KELLEN on CKD - Baseline creatinine ~1.6 based on [facility] records of Cr 1.6 from 03/2019 - unchanged - Gentle IVF as per above - Hold home lasix - Monitor BMP and urine output #Mild troponinemia - downtrending - Likely demand ischemia in setting of KELLEN on CKD and infection - EKG with NSR, 1st degree block and nonspecific T wave changes #hx HTN, HLD #hx CHF (unknown EF) #hx Afib not on A/C #hx CAD - Hold home oral medications given AMS, resume when able to take PO - Holding home aspirin 81mg PO daily, crestor 10mg PO qhs, cilostazol 100mg PO daily - Hold home lasix until KELLEN resolves - Gentle IVF given CHF hx #hx GERD - Continue home protonix 40mg IV daily. Can change to PO once mental status improves #hx IDDM - Last A1C 6.8 from 05/2019 [facility] records - On lantus 23U qhs at [facility] - Decrease to levemir 10U qhs given patient NPO - SSI lispro QACHS and monitor FS #Iron def anemia - Resume home ferrous sulfate 325mg PO BID once mental status improves FEN Diabetic diet Fluids: none Heparin subq DVT ppx Full Code from POLST from [facility] Discussed RN and patient. I spent 37 minutes on this patient encounter, including >50% on counseling and/or coordination of care. Additional time spent on reviewing of patient's chart and records from SNF facility. Time of note may not reflect time patient was seen Subjective Date patient seen: Jul 16, 2019 Constitutional: Denies: chills, diaphoresis, fever, malaise, weakness, other HEENT: Denies: eye pain, blurred vision, tearing, double vision, ear pain, ear discharge, nose pain, nose congestion, throat pain, throat swelling, mouth pain , mouth swelling, other Cardiovascular: Denies: chest pain, edema, irregular heart rate, lightheadedness, palpitations, syncope, other Respiratory: Denies: cough, orthopnea, shortness of breath, SOB with excertion , SOB at rest, sputum, stridor, wheezing, other Gastrointestinal/Abdominal: Denies: abdomen distended, abdominal pain, black stools, tarry stools, blood in stool, constipated, diarrhea, difficulty swallowing, nausea, poor appetite, poor fluid intake, rectal bleeding, vomiting , other Genitourinary: Denies: burning, discharge, frequency, flank pain, hematuria, incontinence, pain, urgency, other Neurologic/Psychiatric: Denies: anxiety, depressed, emotional problems, headache, numbness, paresthesia, pre-existing deficit, seizure, tingling, tremors, weakness, other Endocrine: Denies: excessive sweating, flushing, intolerance to cold, intolerance to heat, increased hunger, increased thirst, increased urine, unexplained weight gain, unexplained weight loss, other Hematologic/Lymphatic: Denies: anemia, easy bleeding, easy bruising, other Allergies: Coded Allergies: No Known Allergies (Unverified , 12/09/13) Subjective No acute events overnight per nursing. Patient feels more energetic. No further episodes seizures or tremors. The patient feels much better. No cough cold shortness of breath chest pain nausea or vomiting. Objective Last 24 Hour Vital Signs Date Time Temp Pulse Resp B/P (MAP) Pulse Ox O2 Delivery O2 Flow Rate FiO2 07/16/19 20:00 97.8 62 18 142/69 (93) 96 07/16/19 19:27 82 16 98 Room Air 21 07/16/19 16:00 98.3 82 18 136/80 (98) 98 07/16/19 12:00 98.5 79 18 130/71 (90) 98 07/16/19 09:00 Room Air 07/16/19 08:15 76 18 98 Room Air 21 07/16/19 08:00 98.7 82 18 131/66 (87) 98 07/16/19 04:00 98.5 84 18 138/64 (88) 98 07/16/19 00:00 97.8 64 16 126/67 (86) 95 Intake and Output 07/15/19 07/16/19 18:59 06:59 Intake Total 1000 ml 975 ml Balance 1000 ml 975 ml IV Total 1000 ml 975 ml # Voids 1 2 # Bowel Movements 2 3 Laboratory Tests 07/16/19 05:25: White Blood Count 9.8, Red Blood Count 3.98L, Hemoglobin 11.9L, Hematocrit 35.4L , Mean Corpuscular Volume 89, Mean Corpuscular Hemoglobin 30.0, Mean Corpuscular Hemoglobin Concent 33.7, Red Cell Distribution Width 12.4, Platelet Count 192, Mean Platelet Volume 5.5L, Neutrophils (%) (Auto) 76.2H, Lymphocytes (%) (Auto) 12.0L, Monocytes (%) (Auto) 6.2, Eosinophils (%) (Auto) 4.6H, Basophils (%) (Auto) 0.9, Sodium Level 148H, Potassium Level 4.5, Chloride Level 114H, Carbon Dioxide Level 29, Anion Gap 5, Blood Urea Nitrogen 37H, Creatinine 1.9H, Estimat Glomerular Filtration Rate , Glucose Level 84, Hemoglobin A1c 6.8H, Calcium Level 9.3, Troponin I 0.020, Random Vancomycin Level 16.6 Height (Feet): 5 Height (Inches): 6.00 Weight (Pounds): 190 General Appearance: WD/WN, no apparent distress, alert EENT: PERRL/EOMI, normal ENT inspection Neck: non-tender, normal alignment, supple Cardiovascular: normal peripheral pulses, normal rate, regular rhythm, no JVD Respiratory/Chest: chest wall non-tender, lungs clear, normal breath sounds, no respiratory distress Abdomen: normal bowel sounds, non tender, soft, no organomegaly, no mass Extremities: normal range of motion, non-tender, normal inspection Edema: other - No lower extremity edema bilaterally Neurologic: armoring machine 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 Jul 16, 2019 22:08
[2019-07-16] MEDS ORDERED: Ipratropium 0.02% Inh Soln 2.5ml UD HHN PRN (22:15)
[2019-07-16] MEDS: Atorvastatin 20mg tab ORAL SCH (23:31)
[2019-07-17] VITALS: BP 128/73
[2019-07-17 04:00] VITALS: BP 142/70
[2019-07-17] MEDS: D5NS 1,000 ML IV SCH (04:59)
[2019-07-17] MEDS: Piperacillin/Tazobactam 3.375 GM in NS 110 ML IVPB SCH ×3 (05:51→22:21)
[2019-07-17] MEDS: NovoLOG Insulin Flexpen SUBQ SCH ×4 (06:10→20:14)
--- NOTE | 2019-07-17 07:30 | NUR ---
NURSE NOTES: Received patient on bed awake. No SOB or cardiac distress. IV line intact. Head of bed elevated. Bed locked in lowest position. Will continue plan of care.
[2019-07-17 07:35] LABS: BASOPHILS % (AUTO) 1.1 % (0.0-2.0); HEMATOCRIT 36.1 % (42.0-52.0); HEMOGLOBIN 12.2 G/DL (14.2-18.0); LYMPHOCYTES % (AUTO) 15.9 % (20.0-45.0); MEAN CORPUSCULAR VOLUME 90 FL (80-99); MONOCYTES % (AUTO) 6.9 % (1.0-10.0); NEUTROPHILS % (AUTO) 71.1 % (45.0-75.0); PLATELET COUNT 181 K/UL (150-450); RED BLOOD COUNT 4.02 M/UL (4.70-6.10); RED CELL DISTRIBUTION WIDTH 12.3 % (11.6-14.8); WHITE BLOOD COUNT 8.5 K/UL (4.8-10.8)
--- NOTE | 2019-07-17 07:45 | NUR ---
HAND-OFF: Report given to Annie.
[2019-07-17 08:00] VITALS: BP 153/73
[2019-07-17 08:00] LABS: ANION GAP 8 mmol/L (5-15); BLOOD UREA NITROGEN 27 mg/dL (7-18); CALCIUM 9.2 MG/DL (8.5-10.1); CARBON DIOXIDE 26 MMOL/L (21-32); CHLORIDE 112 MMOL/L (98-107); CREATININE 1.5 MG/DL (0.55-1.30); PHOSPHORUS 2.8 MG/DL (2.5-4.9); POTASSIUM 3.6 MMOL/L (3.5-5.1); SODIUM 146 MMOL/L (136-145)
[2019-07-17] MEDS: Aspirin Baby 81mg ORAL SCH (09:50)
[2019-07-17] MEDS: Allopurinol 100mg Tab ORAL SCH (09:50)
[2019-07-17] MEDS: Cilostazol 100mg tab ORAL SCH (09:50)
[2019-07-17] MEDS: Pantoprazole Inj IV SCH (09:51)
[2019-07-17] MEDS: Azithromycin 500 MG in D5W 275 ML IV SCH (09:51)
[2019-07-17] MEDS: Heparin 5000 units/ml inj SUBQ SCH ×2 (09:54→20:12)
--- NOTE | 2019-07-17 10:42 | NUR ---
*-* INSURANCE *-* ALL CLINICALS AND REVIEWS HAVE BEEN FAXED TO: TANISHA Odonnell Tracking#[id number] no CM yet fax#[phone]
--- NOTE | 2019-07-17 11:01 | NUR ---
RADIOLOGY DEPT. CHEST X-RAY DONE.-P.DYE
[2019-07-17 12:00] VITALS: BP 101/60
--- NOTE | 2019-07-17 12:26 | Diagnostic Imaging Report ---
Indication: Shortness of breath Technique: One view of the chest Comparison: 07/15/2019 Findings: Increasing retrocardiac and right perihilar infiltrates are noted. Persistent bilateral pleural effusions, unchanged. The heart remains enlarged. Pleural calcifications on the right are again demonstrated Impression: Increasing bilateral infiltrates, over 2 days, as described
--- NOTE | 2019-07-17 12:33 | NUR ---
NURSE NOTES: Complaining of IV site pain. IV line removed and reinserted to left arm using g22. IVF infusing well.
--- NOTE | 2019-07-17 14:25 | General Progress Note ---
Assessment/Plan Problem List: (1) Acute respiratory failure ICD Codes: J96.00 - Acute respiratory failure, unspecified whether with hypoxia or hypercapnia SNOMED: 23016416 (2) Metabolic encephalopathy ICD Codes: G93.41 - Metabolic encephalopathy SNOMED: 79318062 (3) HAP (hospital-acquired pneumonia) ICD Codes: J18.9 - Pneumonia, unspecified organism; Y95 - Nosocomial condition SNOMED: 269567059 (4) History of COPD ICD Codes: Z87.09 - Personal history of other diseases of the respiratory system SNOMED: 714490095 (5) Acute on chronic renal failure ICD Codes: N17.9 - Acute kidney failure, unspecified; N18.9 - Chronic kidney disease, unspecified SNOMED: 954123361 (6) Atrial fibrillation ICD Codes: I48.91 - Unspecified atrial fibrillation SNOMED: 07930829 (7) CAD (coronary artery disease) ICD Codes: I25.10 - Atherosclerotic heart disease of [place] coronary artery without angina pectoris SNOMED: 78163081 (8) HTN (hypertension) ICD Codes: I10 - HTN (hypertension) SNOMED: 42478096 (9) Respiratory insufficiency ICD Codes: R06.89 - Respiratory insufficiency SNOMED: 405417797 (10) UTI (urinary tract infection) ICD Codes: N39.0 - Urinary tract infection, site not specified SNOMED: 79454209 Status: progressing Assessment/Plan: Edy Dubon is a 84 yo man with PMH of IDDM (type II), CKD (creatinine ~1.6 baseline), HTN, HLD, COPD (not on home O2), CHF (unknown EF), dementia (AAOx1-2 at baseline), Afib (not on A/C), CAD, GERD, and iron deficiency anemia who presented from [facility] with AMS, found with KELLEN, CXR concerning for developing PNA, and mild troponinemia likely 2/2 demand ischemia in setting of KELLEN on CKD, admitted for HCAP, KELLEN on CKD, and demand ischemia. #HCAP #S. Aurues UTI. Blood cultures negative so far. But given S. Aureus is not normally seen on the urine will need to evaluate for other etiologies #hx COPD (not on home O2) #Rule out endocarditis. Patient with history of cardiac surgery but does not know for what. He does not know if he has any valves. > Afebrile without leukocytosis lactate 0.6 on admission > CXR with patchy consolidation in L mid and lower lung carter concerning for PNA vs atelectasis > UA with 3+ leuk est, 10-15 RBC, trace WBC, moderate bacteria - S/p azithro and ceftriaxone x1 in ED. Continue IV abx to cover for HCAP and possible UTI with zosyn 3.375 [id number] (renally dosed) and vancomycin dose by trough and azithromycin 500mg IV (07/15- ). Day 3 - Plan for 5-7 days course pending clinical improvement. - F/U BCX -no growth to date - Duonebs q6hrs PRN SOB/wheezing - Rectal tylenol PRN pain/fever, can change to PO once able to take PO - ANIMAL SURGEON eval -Appreciate infectious disease recommendations: Dr. Linn. Will order echo to rule out endocarditis #Encephalopathy likely 2/2 acute infections - RESOLVING #Reported tremors at [facility] - EEG negative: no focal or lateralized slowing seen. No clear epileptiform discharges seen. Generalized slowing #hx dementia (baseline AAOx1-2 and conversant) > EEG negative - ?rigors vs actual tremors, reportedly new at SNF - Treatment for infections as per above - CT head without acute findings - Resume home memantine 10mg PO BID once mental status improves #KELLEN on CKD - Baseline creatinine ~1.6 based on [facility] records of Cr 1.6 from 03/2019 - unchanged - Gentle IVF as per above - Hold home lasix - Monitor BMP and urine output #Mild troponinemia - downtrending - Likely demand ischemia in setting of KELLEN on CKD and infection - EKG with NSR, 1st degree block and nonspecific T wave changes #hx HTN, HLD #hx CHF (unknown EF) #hx Afib not on A/C #hx CAD - Continue aspirin 81mg PO daily, crestor 10mg PO qhs (atorvastatin 40mg PO daily while inpatient), cilostazol 100mg PO daily - Hold home lasix until KELLEN resolves #hx GERD - Continue home protonix 40mg IV daily. Can change to PO once mental status improves #hx IDDM - Last A1C 6.8 from 05/2019 [facility] records - On lantus 23U qhs at SNF - Decrease to levemir 10U qhs given patient NPO - SSI lispro QACHS and monitor FS #Iron def anemia - Resume home ferrous sulfate 325mg PO BID once mental status improves FEN Diabetic diet Fluids: none Heparin subq DVT ppx Full Code from [facility] from [facility] Discussed RN and patient and infectious disease. I spent 36 minutes on this patient encounter, including >50% on counseling and/or coordination of care. Time of note may not reflect time patient was seen Subjective Date patient seen: Jul 17, 2019 Constitutional: Denies: chills, diaphoresis, fever, malaise, weakness, other HEENT: Denies: eye pain, blurred vision, tearing, double vision, ear pain, ear discharge, nose pain, nose congestion, throat pain, throat swelling, mouth pain , mouth swelling, other Cardiovascular: Denies: chest pain, edema, irregular heart rate, lightheadedness, palpitations, syncope, other Respiratory: Denies: cough, orthopnea, shortness of breath, SOB with excertion , SOB at rest, sputum, stridor, wheezing, other Gastrointestinal/Abdominal: Denies: abdomen distended, abdominal pain, black stools, tarry stools, blood in stool, constipated, diarrhea, difficulty swallowing, nausea, poor appetite, poor fluid intake, rectal bleeding, vomiting , other Genitourinary: Denies: burning, discharge, frequency, flank pain, hematuria, incontinence, pain, urgency, other Neurologic/Psychiatric: Denies: anxiety, depressed, emotional problems, headache, numbness, paresthesia, pre-existing deficit, seizure, tingling, tremors, weakness, other Endocrine: Denies: excessive sweating, flushing, intolerance to cold, intolerance to heat, increased hunger, increased thirst, increased urine, unexplained weight gain, unexplained weight loss, other Hematologic/Lymphatic: Denies: anemia, easy bleeding, easy bruising, other Allergies: Coded Allergies: No Known Allergies (Unverified , 12/09/13) Subjective No acute events overnight per nursing. Patient feels back to his baseline. He denies any difficulty breathing cough fever or chills. His urine culture is growing staph aureus. He denies any recent genital infection, or chronic indwelling [place]. Objective Last 24 Hour Vital Signs Date Time Temp Pulse Resp B/P (MAP) Pulse Ox O2 Delivery O2 Flow Rate FiO2 07/17/19 12:00 98.1 56 20 101/60 (74) 97 07/17/19 11:28 Room Air 07/17/19 08:00 98.7 61 18 153/73 (99) 96 07/17/19 04:00 97.6 61 18 142/70 (94) 96 07/17/19 00:00 97.5 69 18 128/73 (91) 96 07/16/19 22:00 Room Air 07/16/19 20:00 97.8 62 18 142/69 (93) 96 07/16/19 19:27 82 16 98 Room Air 21 07/16/19 16:00 98.3 82 18 136/80 (98) 98 Intake and Output 07/16/19 07/17/19 19:00 07:00 Intake Total 780 ml 300 ml Balance 780 ml 300 ml Intake Oral 780 ml 300 ml # Voids 2 2 # Bowel Movements 1 1 Laboratory Tests 07/17/19 06:15: White Blood Count 8.5, Red Blood Count 4.02L, Hemoglobin 12.2L, Hematocrit 36.1L , Mean Corpuscular Volume 90, Mean Corpuscular Hemoglobin 30.3, Mean Corpuscular Hemoglobin Concent 33.8, Red Cell Distribution Width 12.3, Platelet Count 181, Mean Platelet Volume 5.8L, Neutrophils (%) (Auto) 71.1, Lymphocytes ( %) (Auto) 15.9L, Monocytes (%) (Auto) 6.9, Eosinophils (%) (Auto) 5.0H, Basophils (%) (Auto) 1.1, Sodium Level 146H, Potassium Level 3.6, Chloride Level 112H, Carbon Dioxide Level 26, Anion Gap 8, Blood Urea Nitrogen 27H, Creatinine 1.5H, Estimat Glomerular Filtration Rate , Glucose Level 89, Calcium Level 9.2, Phosphorus Level 2.8, Magnesium Level 2.0 Height (Feet): 5 Height (Inches): 6.00 Weight (Pounds): 190 General Appearance: WD/WN, no apparent distress, alert EENT: PERRL/EOMI, normal ENT inspection Neck: non-tender, normal alignment, supple Cardiovascular: normal peripheral pulses, normal rate, regular rhythm, no JVD Respiratory/Chest: chest wall non-tender, lungs clear, normal breath sounds, no respiratory distress Abdomen: normal bowel sounds, non tender, soft, no organomegaly, no mass Genitourinary/Rectal: normal genital exam, other - No rashes lesions or ulcers seen. Exam performed with nurse present Edema: other - No lower extremity edema bilaterally Neurologic: liberal arts dean II-XII grossly normal, no motor/sensory deficits, alert, oriented x 3 Skin: normal pigmentation, warm/dry Esvin Cohen D.O. Jul 17, 2019 14:25
--- NOTE | 2019-07-17 15:12 | NUR ---
CASE MANAGEMENT:REVIEW 07/17/19 SI: ENCEPHALOPATHY. PNA. 98.1 56 20 101/60 97% ON RA BUN+27 CR+1.5 IS: IV VANCOMYCIN Q24 IV AZITHROMYCIN Q24 IV ZOSYN Q8HRS IVF@75/HR : MED.SURG STATUS 4 EAST DCP; FROM [facility]
--- NOTE | 2019-07-17 15:19 | Cardiology Report ---
APPROVED REPORT EXAM: Two-dimensional and M-mode echocardiogram with Doppler and color Doppler. INDICATION Endocarditis M-Mode DIMENSIONS IVSd1.1 (0.7-1.1cm)Left Atrium (MM)4.8 (1.6-4.0cm) PWd1.3 (0.7-1.1cm)Aortic Root3.2 (2.0-3.7cm) IVSs1.5 cmAortic Cusp Exc.2.1 (1.5-2.0cm) PWs1.5 cm Mild left ventricular enlargement. Akinetic posterior wall and proximmal to mid inferior and proximal inferolater wall Left ventricular ejection fraction estimated to be 40- 45 %. Anterior Echo-free space, may be due to pericardial fat or effusion. Mild bi-atrial enlargement. Right ventricular size is within normal limits. Focal aortic valve sclerosis with adequate cusp excursion. Thickened mitral valve leaflets with normal excursion. Mitral annulus and aortic root calcification. Normal pulmonic valve structure. Normal tricuspid valve structure. IVC at normal size with physiologic collapse. A color flow and spectral Doppler study was performed and revealed: Trace aortic insufficiency. Mild mitral regurgitation. Mitral diastolic velocities suggest mild diastolic dysfunction (Grade I). Mild tricuspid regurgitation. Tricuspid systolic velocities suggests peak right ventricular systolic pressure of 39 mmHg, consistent with mild pulmonary hypertension. Pulmonic regurgitation present.
[2019-07-17] MEDS: Vancomycin 1.25gm/NS Premix IVPB SCH (15:36)
[2019-07-17 16:00] VITALS: BP 105/63
--- NOTE | 2019-07-17 16:11 | Infectious Diseases Prog Note ---
Assessment/Plan Assessment/Plan Full consult dictated: A) staph aureus uti pna blood cultures negative, echo without vegetation mentioned P) vancomycin, zosyn, azithromycin check cultures, labs and chest x-ray, serology ordered thank you Subjective Allergies: Coded Allergies: No Known Allergies (Unverified , 12/09/13) Objective Vital Signs Last 24 Hour Vital Signs Date Time Temp Pulse Resp B/P (MAP) Pulse Ox O2 Delivery O2 Flow Rate FiO2 07/17/19 12:00 98.1 56 20 101/60 (74) 97 07/17/19 11:28 Room Air 07/17/19 08:00 98.7 61 18 153/73 (99) 96 07/17/19 04:00 97.6 61 18 142/70 (94) 96 07/17/19 00:00 97.5 69 18 128/73 (91) 96 07/16/19 22:00 Room Air 07/16/19 20:00 97.8 62 18 142/69 (93) 96 07/16/19 19:27 82 16 98 Room Air 21 Height (Feet): 5 Height (Inches): 6.00 Weight (Pounds): 190 Microbiology Date/Time Source Procedure Growth Status 07/15/19 07:30 Blood Blood Culture - Preliminary NO GROWTH AFTER 24 HOURS Resulted 07/15/19 07:15 Blood Blood Culture - Preliminary NO GROWTH AFTER 24 HOURS Resulted 07/15/19 07:35 Nose MRSA Culture - Final NO METHICILLIN RESISTANT STAPH AUREUS... Complete 07/15/19 07:31 Urine,Clean Catch Urine Culture - Preliminary Staphylococcus Aureus Resulted Laboratory Tests Test 07/17/19 06:15 07/17/19 14:00 White Blood Count 8.5 K/UL (4.8-10.8) Red Blood Count 4.02 M/UL (4.70-6.10) L Hemoglobin 12.2 G/DL (14.2-18.0) L Hematocrit 36.1 % (42.0-52.0) L Mean Corpuscular Volume 90 FL (80-99) Mean Corpuscular Hemoglobin 30.3 PG (27.0-31.0) Mean Corpuscular Hemoglobin Concent 33.8 G/DL (32.0-36.0) Red Cell Distribution Width 12.3 % (11.6-14.8) Platelet Count 181 K/UL (150-450) Mean Platelet Volume 5.8 FL (6.5-10.1) L Neutrophils (%) (Auto) 71.1 % (45.0-75.0) Lymphocytes (%) (Auto) 15.9 % (20.0-45.0) L Monocytes (%) (Auto) 6.9 % (1.0-10.0) Eosinophils (%) (Auto) 5.0 % (0.0-3.0) H Basophils (%) (Auto) 1.1 % (0.0-2.0) Sodium Level 146 MMOL/L (136-145) H Potassium Level 3.6 MMOL/L (3.5-5.1) Chloride Level 112 MMOL/L (98-107) H Carbon Dioxide Level 26 MMOL/L (21-32) Anion Gap 8 mmol/L (5-15) Blood Urea Nitrogen 27 mg/dL (7-18) H Creatinine 1.5 MG/DL (0.55-1.30) H Estimat Glomerular Filtration Rate mL/min (>60) Glucose Level 89 MG/DL (74-106) Calcium Level 9.2 MG/DL (8.5-10.1) Phosphorus Level 2.8 MG/DL (2.5-4.9) Magnesium Level 2.0 MG/DL (1.8-2.4) Vancomycin Level Trough 18.2 ug/mL (5.0-12.0) H Current Medications Medications (Trade) Dose Ordered Sig/Breanna Route PRN Reason Start Time Stop Time Status Last Admin Dose Admin Acetaminophen (Tylenol) 650 mg Q4H PRN RECTAL Mild Pain (Pain Scale 1-3) 07/15/19 12:00 08/14/19 11:59 Acetaminophen (Tylenol) 650 mg Q4H PRN RECTAL fever 07/15/19 12:00 08/14/19 11:59 Albuterol/ Ipratropium (Albuterol/ Ipratropium) 3 ml Q6H PRN HHN Shortness of Breath 07/15/19 12:00 07/20/19 11:59 Allopurinol (Zyloprim) 100 mg DAILY ORAL 07/17/19 09:00 08/16/19 08:59 07/17/19 09:50 Aspirin (ASA) 81 mg DAILY ORAL 07/17/19 09:00 11/14/19 08:59 07/17/19 09:50 Atorvastatin Calcium (Lipitor) 40 mg BEDTIME ORAL 07/16/19 23:00 08/15/19 22:59 07/16/19 23:31 Azithromycin 500 mg/Dextrose 275 ml @ 275 mls/hr Q24H IV 07/16/19 10:00 07/23/19 09:59 07/17/19 09:51 Cilostazol (Pletal) 100 mg DAILY ORAL 07/17/19 09:00 08/16/19 08:59 07/17/19 09:50 Dextrose (Dextrose 50%) 25 ml Q30M PRN IV Hypoglycemia 07/15/19 12:15 08/14/19 12:14 Dextrose (Dextrose 50%) 50 ml Q30M PRN IV Hypoglycemia 07/15/19 12:15 08/14/19 12:14 Folic Acid (Folate) 1 mg DAILY ORAL 07/17/19 09:00 08/16/19 08:59 07/17/19 09:50 Heparin Sodium (Porcine) (Heparin 5000 units/ml) 5,000 units EVERY 12 HOURS SUBQ 07/15/19 21:00 08/14/19 20:59 07/17/19 09:54 Insulin Aspart (NovoLOG) BEFORE MEALS AND HS SUBQ 07/15/19 16:30 08/14/19 16:29 07/17/19 12:46 Insulin Detemir (Levemir) 10 units BEDTIME SUBQ 07/15/19 21:00 08/14/19 20:59 07/16/19 21:20 Ipratropium [place] (Atrovent) 500 mcg Q6H PRN HHN Shortness of Breath 07/16/19 22:15 07/21/19 22:14 Pantoprazole (Protonix) 40 mg DAILY IV 07/16/19 09:00 08/15/19 08:59 07/17/19 09:51 Piperacillin Sod/ Tazobactam Sod 3.375 gm/Sodium Chloride 110 ml @ 27.5 mls/hr EVERY 8 HOURS IVPB 07/15/19 14:00 07/20/19 13:59 07/17/19 15:42 Vancomycin HCl (Vanco rx to dose) 1 ea DAILY PRN MISC Per rx protocol 07/15/19 12:30 08/14/19 12:29 Vancomycin/Sodium Chloride 275 ml @ 183.333 mls/hr Q24H IVPB 07/16/19 14:00 07/21/19 13:59 07/17/19 15:36 Judi Stokes MD Jul 17, 2019 16:11
--- NOTE | 2019-07-17 19:30 | NUR ---
HAND-OFF: Report given to Ilya.
--- NOTE | 2019-07-17 19:55 | NUR ---
NURSE NOTES: Received patient awake in bed, able to verbalize needs, no s/s of acute distress. IV abx currently running. Bed low and locked. Will monitor blood sugar closely.
[2019-07-17 20:00] VITALS: BP 109/46
[2019-07-17] MEDS: Atorvastatin 20mg tab ORAL SCH (20:11)
[2019-07-17] MEDS: Levemir Flexpen SUBQ SCH (20:13)
[2019-07-17] MEDS ORDERED: IPRATROPIUM BRO15 ML NS (20:14)
[2019-07-17] MEDS ORDERED: FLOVENT2 PUFF1 INH (20:48)
[2019-07-17] MEDS ORDERED: PANTOPRAZOLE SO40 MG ORAL (20:48)
[2019-07-17] MEDS ORDERED: FERROUS SULFAT325 MG ORAL (20:48)
[2019-07-17] MEDS ORDERED: NAMENDA10 MG ORAL (20:48)
[2019-07-17] MEDS ORDERED: CILOSTAZOL100 MG PO (20:48)
[2019-07-17] MEDS ORDERED: ASPIRIN EC81 MG ORAL (20:48)
[2019-07-17] MEDS ORDERED: MELATONIN 5 MG1 EAC1 ORAL (20:53)
[2019-07-17] MEDS ORDERED: ARTIFICIAL TEAR15 ML BOTH EYES (20:53)
[2019-07-17] MEDS ORDERED: CRANBERRY450 M5 PO (20:53)
[2019-07-17] MEDS ORDERED: DOCUSATE SODIU100 MG ORAL (20:53)
[2019-07-17] MEDS ORDERED: SYSTANE 0.3-0.415 ML BOTH EYES (20:53)
[2019-07-17] MEDS ORDERED: MIRALAX17 G2 ORAL (20:53)
--- NOTE | 2019-07-17 22:45 | Consultation ---
DATE OF CONSULTATION: 07/17/2019 INFECTIOUS DISEASE CONSULTATION CONSULTING PHYSICIAN: Judi Stokes M.D. ATTENDING PHYSICIAN: Miguelangel Frederick M.D. REFERRING PHYSICIAN: Esvin Cohen D.O. REASON FOR CONSULTATION: Staphylococcus aureus urinary tract infection and pneumonia. CHIEF COMPLAINT: The patient's chief complaint coming in to the hospital is urinary tract infection, altered mental status, and pneumonia. HISTORY OF PRESENT ILLNESS: This is a very pleasant 84-year-old male, who comes in to [facility] with multiple medical problems and urinary tract infection, altered mental status, likely complicated urinary tract infection. The patient has history of dementia and is not a very good historian, but he is able to answer some questions. Case was discussed with Dr. Cohen. The patient's workup shows that he has a Staphylococcus aureus urinary tract infection and there was concern for the patient having endocarditis. His blood cultures are negative to date. The patient also has pneumonia and has high risk for aspiration, healthcare-acquired pneumonia with altered mental status. The patient comes from [facility] and also is certainly at risk for community-acquired pneumonia. The patient is on vancomycin, Zosyn, and azithromycin. Sputum culture and Legionella have been ordered. This Staph aureus urinary tract infection sensitivities are pending. MAR was noted. Orders were noted. Notes and records were reviewed. REVIEW OF SYSTEMS: CONSTITUTIONAL: The patient has no central line or Landis. He has generalized fatigue. No focal weakness. He has no fever, chills, night sweats, or weight loss. HEAD AND NECK: No head pain or neck pain. No thrush. No neck stiffness. CARDIAC: No chest pain or palpitations. GASTROINTESTINAL: No nausea, vomiting, abdominal pain, or diarrhea. GENITOURINARY: He has some dysuria and frequency. PULMONARY: Mild cough and congestion. No hemoptysis. SKIN: No rash. EXTREMITIES: No extremity pain. NEUROLOGIC: No seizures. PAST MEDICAL HISTORY: The patient's past medical history includes the history of the following. The patient has a past medical history of diabetes mellitus, which is type 2 diabetes, chronic kidney disease, elevated creatinine, hypertension, hyperlipidemia, chronic obstructive pulmonary disease, congestive heart failure, dementia, atrial fibrillation, anemia, gastroesophageal reflux disease, elevated troponin, encephalopathy, and altered mental status. ALLERGIES: No known drug allergies. No antibiotic allergies. SOCIAL HISTORY: Negative for smoking, alcohol, or drug abuse. FAMILY HISTORY: Noncontributory. Negative for exposure to tuberculosis or cancer. MEDICATIONS: Upon reviewing the MAR, the patient is on the following medications. He is on aspirin. He is on Pletal, allopurinol, folic acid, and atorvastatin. He is on vancomycin, Zosyn, azithromycin, pantoprazole, and insulin. He is on heparin. He is on IV fluids and acetaminophen. Outside medications were noted and reconciliated. PHYSICAL EXAMINATION: VITAL SIGNS: Temperature is 98.1, pulse rate 56, respiratory rate 20, blood pressure 101/60, and saturation 97%. GENERAL: Alert and responsive, in no distress. HEAD AND NECK: Oral exam, no thrush. Eye exam, no icterus. Neck is supple. No JVD. Normocephalic. HEART: Regular with a 1/6 systolic murmur. Occasionally irregular. ABDOMEN: Soft. Positive bowel sounds. Nontender. LUNGS: Bilateral rhonchi, rales, and crackles. SKIN: No rash. MUSCULOSKELETAL: No effusion. Legs are without cellulitis. PERIPHERAL VASCULAR: No cyanosis. No gangrene. No septic arthritis. GENITOURINARY: No Landis. LINE SITES: Without phlebitis. NEUROLOGIC: Intact and nonfocal. LABORATORY AND DIAGNOSTIC DATA: Laboratory data is as follows. The patient's white count is 8.5 and hemoglobin 12.2. Creatinine is 1.5. Sodium 146. LFTs were noted. CULTURES: Urine culture with Staph aureus greater than 100,000. Sensitivities are pending. Blood cultures negative to date at 24 hours. MRSA screen is negative. IMAGING STUDIES: Chest x-ray shows increasing right perihilar infiltrate and bilateral effusions and also retrocardiac infiltrate. Report was noted and reviewed. Echo was done, which showed no mention of vegetation. ASSESSMENT AND PLAN: 1. The patient has Staph aureus urinary tract infection. Blood cultures negative to date and echo without vegetations, which makes endocarditis less likely. It is unclear if this is a healthcare-acquired urinary tract infection since the patient is in [facility]. The patient is currently on vancomycin to cover Staph aureus urinary tract infection. Likely complicated urinary tract infection also. The patient came in with altered mental status. Continue vancomycin for Staph aureus. Check sensitivities. 2. Pneumonia. The patient has high risk for aspiration and healthcare-acquired pneumonia based on location of the infiltrates and also community-acquired pneumonia. Continue vancomycin, Zosyn, and azithromycin to cover for pneumonia. Check sputum culture, laboratories, and chest x-ray. 3. Elevated creatinine. 4. Diabetes. 5. Hypertension. 6. Blood sugar and blood pressure treatment per primary care team for diabetes and hypertension. 7. Chronic kidney disease. 8. Hyperlipidemia. 9. Chronic obstructive pulmonary disease. 10. Congestive heart failure. 11. Dementia. 12. Atrial fibrillation. 13. Iron deficient anemia. 14. Gastroesophageal reflux disease. 15. Continue treatment per primary consultants. 16. No known allergies. 17. Social history is negative. 18. Family history is noncontributory. 19. MAR is noted. 20. Case was discussed with RN. 21. Case discussed with Dr. Cohen. Judi Stokes M.D. DR: MICHELE JOB#: [id number] CC:
[2019-07-18] VITALS (7 sets, daily range): BP systolic 102–146; BP diastolic 50–70
[2019-07-18] MEDS: NovoLOG Insulin Flexpen SUBQ SCH ×4 (05:50→21:28)
[2019-07-18] MEDS: Piperacillin/Tazobactam 3.375 GM in NS 110 ML IVPB SCH ×3 (05:50→21:37)
--- NOTE | 2019-07-18 07:01 | NUR ---
HAND-OFF: Report given to Annie.
--- NOTE | 2019-07-18 07:05 | NUR ---
NURSE NOTES: Received patient in bed asleep. No SOB or cardiac distress. IV line intact and patent, no s/s of infiltration. HOB elevated. Bed locked in lowest position. Will continue plan of care.
[2019-07-18 08:49] LABS: BASOPHILS % (AUTO) 1.2 % (0.0-2.0); EOSINOPHILS % (AUTO) 5.3 % (0.0-3.0); HEMATOCRIT 33.5 % (42.0-52.0); HEMOGLOBIN 11.4 G/DL (14.2-18.0); LYMPHOCYTES % (AUTO) 21.4 % (20.0-45.0); MEAN CORPUSCULAR VOLUME 90 FL (80-99); MONOCYTES % (AUTO) 6.7 % (1.0-10.0); NEUTROPHILS % (AUTO) 65.5 % (45.0-75.0); PLATELET COUNT 168 K/UL (150-450); RED BLOOD COUNT 3.73 M/UL (4.70-6.10); RED CELL DISTRIBUTION WIDTH 12.2 % (11.6-14.8); WHITE BLOOD COUNT 7.5 K/UL (4.8-10.8)
[2019-07-18 09:17] LABS: ALANINE AMINOTRANSFERASE 12 U/L (12-78); ALBUMIN 2.7 G/DL (3.4-5.0); ALBUMIN/GLOBULIN RATIO 0.7 (1.0-2.7); ALKALINE PHOSPHATASE 112 U/L (46-116); ANION GAP 6 mmol/L (5-15); ASPARTATE AMINO TRANSFERASE 15 U/L (15-37); BILIRUBIN,TOTAL 0.6 MG/DL (0.2-1.0); CALCIUM 8.8 MG/DL (8.5-10.1); CARBON DIOXIDE 27 MMOL/L (21-32); CHLORIDE 110 MMOL/L (98-107); CREATININE 1.5 MG/DL (0.55-1.30); POTASSIUM 3.6 MMOL/L (3.5-5.1); SODIUM 143 MMOL/L (136-145)
[2019-07-18] MEDS: Aspirin Baby 81mg ORAL SCH (09:36)
[2019-07-18] MEDS: Cilostazol 100mg tab ORAL SCH (09:36)
[2019-07-18] MEDS: Pantoprazole Inj IV SCH (09:37)
[2019-07-18] MEDS: Allopurinol 100mg Tab ORAL SCH (09:37)
[2019-07-18] MEDS: Heparin 5000 units/ml inj SUBQ SCH ×2 (09:39→21:27)
[2019-07-18] MEDS: Azithromycin 500 MG in D5W 275 ML IV SCH (09:44)
[2019-07-18 09:55] LABS: BLOOD UREA NITROGEN 24 mg/dL (7-18)
--- NOTE | 2019-07-18 11:55 | NUR ---
NURSE NOTES: Dr. Cohen made aware of patient's complaint of dry itchy eyes. Awaiting orders.
--- NOTE | 2019-07-18 12:25 | NUR ---
NURSE NOTES: Called MD office to refer patient, complaining of dry itchy eyes and requesting for eyedrops. Also called regarding MRSA urine. Awaiting orders.
--- NOTE | 2019-07-18 13:49 | NUR ---
CASE MANAGEMENT:REVIEW 07/18/19 SI: PNEUMONIA. MRSA UTI 97.6 62 20 126/63 95% ON RA H/H-11.4/33.5 BUN+24 CR+1.5 IS: IV VANCOMYCIN Q24 IV AZITHROMYCIN Q24 IV ZOSYN Q8HRS : MED/SURG STATUS 4 EAST DCP: FROM [facility]
[2019-07-18] MEDS: Vancomycin 1.25gm/NS Premix IVPB SCH (14:48)
--- NOTE | 2019-07-18 15:17 | Cardiac Electrophysiology PN ---
Subjective Subjective [id number] Objective Last 24 Hour Vital Signs Date Time Temp Pulse Resp B/P (MAP) Pulse Ox O2 Delivery O2 Flow Rate FiO2 07/18/19 12:00 97.6 62 20 126/63 (84) 95 07/18/19 08:00 98.1 61 18 143/62 (89) 97 07/18/19 04:00 98.0 59 16 123/62 (82) 97 07/18/19 00:00 97.6 57 17 102/50 (67) 97 07/17/19 23:10 Room Air 07/17/19 20:00 97.9 54 21 109/46 (67) 97 07/17/19 16:00 98.0 62 21 105/63 (77) 97 Intake and Output 07/17/19 07/18/19 19:00 07:00 Intake Total 1624.166 ml 360 ml Balance 1624.166 ml 360 ml Intake Oral 900 ml 360 ml IV Total 724.166 ml # Voids 2 # Bowel Movements 1 Laboratory Tests Test 07/17/19 22:30 07/18/19 08:30 Urine Legionella Antigen Pending White Blood Count 7.5 K/UL (4.8-10.8) Red Blood Count 3.73 M/UL (4.70-6.10) L Hemoglobin 11.4 G/DL (14.2-18.0) L Hematocrit 33.5 % (42.0-52.0) L Mean Corpuscular Volume 90 FL (80-99) Mean Corpuscular Hemoglobin 30.4 PG (27.0-31.0) Mean Corpuscular Hemoglobin Concent 33.9 G/DL (32.0-36.0) Red Cell Distribution Width 12.2 % (11.6-14.8) Platelet Count 168 K/UL (150-450) Mean Platelet Volume 5.9 FL (6.5-10.1) L Neutrophils (%) (Auto) 65.5 % (45.0-75.0) Lymphocytes (%) (Auto) 21.4 % (20.0-45.0) Monocytes (%) (Auto) 6.7 % (1.0-10.0) Eosinophils (%) (Auto) 5.3 % (0.0-3.0) H Basophils (%) (Auto) 1.2 % (0.0-2.0) Sodium Level 143 MMOL/L (136-145) Potassium Level 3.6 MMOL/L (3.5-5.1) Chloride Level 110 MMOL/L (98-107) H Carbon Dioxide Level 27 MMOL/L (21-32) Anion Gap 6 mmol/L (5-15) Blood Urea Nitrogen 24 mg/dL (7-18) H Creatinine 1.5 MG/DL (0.55-1.30) H Estimat Glomerular Filtration Rate mL/min (>60) Glucose Level 63 MG/DL (74-106) L Calcium Level 8.8 MG/DL (8.5-10.1) Total Bilirubin 0.6 MG/DL (0.2-1.0) Aspartate Amino Transf (AST/SGOT) 15 U/L (15-37) Alanine Aminotransferase (ALT/SGPT) 12 U/L (12-78) Alkaline Phosphatase 112 U/L (46-116) Total Protein 6.7 G/DL (6.4-8.2) Albumin 2.7 G/DL (3.4-5.0) L Globulin 4.0 g/dL Albumin/Globulin Ratio 0.7 (1.0-2.7) L Sixto Wiggins MD Jul 18, 2019 15:17
--- NOTE | 2019-07-18 17:38 | NUR ---
SPEECH PATHOLOGY: PATIENT CLEARED FOR ST INTERVENTION BY DENAE VERDUGO S: PATIENT SEEN AT BEDSIDE. HE WAS ALERT, VERBAL AND INCONSISTENTLY COOPERATIVE. O: COGNITIVE/LINGUISTIC ASSESSMENT A: PATIENT ORIENTED X2. HIS COGNITIVE DEFICITS ARE CONSISTENT WITH LEVEL 4/MODERATE COGNITIVE DECLINE/LATE CONFUSIONAL CLINICAL PHASE OF DEMENTIA MEASURED BY THE GDS (GLOBAL DETERIORATION SCALE). HE HAD DIFFICULTY RECALLING PERSONAL INFORMATION, UNABLE TO HANDLE SIMPLE COMPUTATIONS, UNABLE TO PERFORM COMPLEX PROBLEM SOLVING TASKS. HE DENIES ANY DIFFICULTY WITH COGNITION, INSISTS ON BEING DISCHARGED TO "THE OTHER PLACE". HE WAS OPPOSITIONAL TO SIMPLE TASKS SUCH CLOCK DRAWING OR FORMAL TESTING TASKS SUCH GENERATIVE NAMING, PROBLEM/SOLVING. HE WAS HYPERVERBAL, TALKING NON/STOP THROUGHOUT THIS INTERVIEW. P: THIS PATIENTS COGNITIVE DEFICITS REQUIRE A SUPPORTED LIVING ENVIRONMENT FOR HIS HEALTH/SAFETY.
--- NOTE | 2019-07-18 17:56 | NUR ---
NURSE NOTES: Patient for transfer to telemetry unit. Belongings check done and belongings noted to be complete. Patient in stable condition. Hand off given to
--- NOTE | 2019-07-18 18:00 | NUR ---
NURSE NOTES: Received report from DENAE Valencia. The patient got transferred from medical/surgical unit to tele under Dr. Fisher's order. Per Dr. Wiggins, the patient needs to be transferred to tele due to history of atrial fibrillation. Based on the 5 lead EKG, the patient is in sinus rhythm with first degree AV block and with PVCs. The patient is stable without acute distress or shortness of breath. The patient is stable in terms of vital signs. The patient has sacral DTI and the picture taken and applied optifoam. The patient's belongings checked with two nurses and signed by two nurses. In short, the patient is stable without acute distress or shortness of breath. The patient has stable vital signs. Will continue plan of care.
--- NOTE | 2019-07-18 18:00 | General Progress Note ---
Assessment/Plan Problem List: (1) Acute respiratory failure ICD Codes: J96.00 - Acute respiratory failure, unspecified whether with hypoxia or hypercapnia SNOMED: 52594774 (2) Metabolic encephalopathy ICD Codes: G93.41 - Metabolic encephalopathy SNOMED: 46344765 (3) HAP (hospital-acquired pneumonia) ICD Codes: J18.9 - Pneumonia, unspecified organism; Y95 - Nosocomial condition SNOMED: 776484189 (4) History of COPD ICD Codes: Z87.09 - Personal history of other diseases of the respiratory system SNOMED: 894310816 (5) Acute on chronic renal failure ICD Codes: N17.9 - Acute kidney failure, unspecified; N18.9 - Chronic kidney disease, unspecified SNOMED: 897561410 (6) Atrial fibrillation ICD Codes: I48.91 - Unspecified atrial fibrillation SNOMED: 13409070 (7) CAD (coronary artery disease) ICD Codes: I25.10 - Atherosclerotic heart disease of [place] coronary artery without angina pectoris SNOMED: 05434955 (8) HTN (hypertension) ICD Codes: I10 - HTN (hypertension) SNOMED: 80577918 (9) Respiratory insufficiency ICD Codes: R06.89 - Respiratory insufficiency SNOMED: 713400209 (10) UTI (urinary tract infection) ICD Codes: N39.0 - Urinary tract infection, site not specified SNOMED: 62097009 Status: progressing Assessment/Plan: Edy Dubon is a 84 yo man with PMH of IDDM (type II), CKD (creatinine ~1.6 baseline), HTN, HLD, COPD (not on home O2), CHF (unknown EF), dementia (AAOx1-2 at baseline), Afib (not on A/C), CAD, GERD, and iron deficiency anemia who presented from [facility] with AMS, found with KELLEN, CXR concerning for developing PNA, and mild troponinemia likely 2/2 demand ischemia in setting of KELLEN on CKD, admitted for HCAP, KELLEN on CKD, and demand ischemia. #HCAP #MRSA UTI. Blood cultures negative so far. But given S. Aureus is not normally seen on the urine will need to evaluate for other etiologies #hx COPD (not on home O2) #Rule out endocarditis. Patient with history of cardiac surgery but does not know for what. He does not know if he has any valves. > Afebrile without leukocytosis lactate 0.6 on admission > CXR with patchy consolidation in L mid and lower lung carter concerning for PNA vs atelectasis > UA with 3+ leuk est, 10-15 RBC, trace WBC, moderate bacteria > TTE shows no evidence of endocarditis but new systolic heart failure with EF 40-45% - S/p azithro and ceftriaxone x1 in ED. Continue IV abx to cover for HCAP and possible UTI with zosyn 3.375 GDb7lig (renally dosed) and vancomycin dose by trough and azithromycin 500mg IV (07/15- ). Day 3 - Plan for 5-7 days course pending clinical improvement. - F/U BCX -no growth to date - Duonebs q6hrs PRN SOB/wheezing - Rectal tylenol PRN pain/fever, can change to PO once able to take PO - TRAVELING ENGINEER eval -Appreciate infectious disease recommendations: Dr. Linn. Will order echo to rule out endocarditis #Systolic heart failure, compensated. New diagnosis Differential includes ischemic, versus tachycardia induced, versus cardiomyopathy -Appreciate cardiology recommendations: Dr. Wiggins -Monitor on telemetry -Lisinopril 10 mg p.o. daily -Aspirin 81 mg p.o. daily -Atorvastatin 40 mg p.o. nightly -Coreg 3.125 every 12 hours #Encephalopathy likely 2/2 acute infections - RESOLVING #Reported tremors at [facility] - EEG negative: no focal or lateralized slowing seen. No clear epileptiform discharges seen. Generalized slowing #hx dementia (baseline AAOx1-2 and conversant) > EEG negative - ?rigors vs actual tremors, reportedly new at SNF - Treatment for infections as per above - CT head without acute findings - Resume home memantine 10mg PO BID once mental status improves #KELLEN on CKD - RESOLVED - Baseline creatinine ~1.6 based on [facility] records of Cr 1.6 from 03/2019 - unchanged - Gentle IVF as per above - Hold home lasix - Monitor BMP and urine output #Mild troponinemia - downtrending - Likely demand ischemia in setting of KELLEN on CKD and infection - EKG with NSR, 1st degree block and nonspecific T wave changes #hx HTN, HLD #hx CHF (unknown EF) #hx Afib not on A/C #hx CAD - Continue aspirin 81mg PO daily, crestor 10mg PO qhs (atorvastatin 40mg PO daily while inpatient), cilostazol 100mg PO daily - Hold home lasix until KELLEN resolves #hx GERD - Continue home protonix 40mg IV daily. Can change to PO once mental status improves #hx IDDM - Last A1C 6.8 from 05/2019 [facility] records - On lantus 23U qhs at SNF - Decrease to levemir 5U qhs - SSI lispro QACHS and monitor FS #Iron def anemia - Resume home ferrous sulfate 325mg PO BID once infection treated FEN Diabetic diet Fluids: none Heparin subq DVT ppx Full Code from [facility] from [facility] Discussed RN and patient, infectious disease, and cardiology. I spent 38 minutes on this patient encounter, including >50% on counseling and/or coordination of care. Time of note may not reflect time patient was seen Subjective Date patient seen: Jul 18, 2019 Constitutional: Denies: chills, diaphoresis, fever, malaise, weakness, other HEENT: Denies: eye pain, blurred vision, tearing, double vision, ear pain, ear discharge, nose pain, nose congestion, throat pain, throat swelling, mouth pain , mouth swelling, other Cardiovascular: Denies: chest pain, edema, irregular heart rate, lightheadedness, palpitations, syncope, other Respiratory: Denies: cough, orthopnea, shortness of breath, SOB with excertion , SOB at rest, sputum, stridor, wheezing, other Gastrointestinal/Abdominal: Denies: abdomen distended, abdominal pain, black stools, tarry stools, blood in stool, constipated, diarrhea, difficulty swallowing, nausea, poor appetite, poor fluid intake, rectal bleeding, vomiting , other Genitourinary: Denies: burning, discharge, frequency, flank pain, hematuria, incontinence, pain, urgency, other Neurologic/Psychiatric: Denies: anxiety, depressed, emotional problems, headache, numbness, paresthesia, pre-existing deficit, seizure, tingling, tremors, weakness, other Endocrine: Denies: excessive sweating, flushing, intolerance to cold, intolerance to heat, increased hunger, increased thirst, increased urine, unexplained weight gain, unexplained weight loss, other Hematologic/Lymphatic: Denies: anemia, easy bleeding, easy bruising, other Allergies: Coded Allergies: No Known Allergies (Unverified , 12/09/13) Subjective No acute events overnight per nursing. Patient feels much better. He is complaining of constant dry watery itchy eyes, with no drainage. He denies any fevers or chills. He denies any difficulty breathing cough fever or chills. His urine culture is growing MRSA. He denies any recent genital infection, or chronic indwelling Landis. Objective Last 24 Hour Vital Signs Date Time Temp Pulse Resp B/P (MAP) Pulse Ox O2 Delivery O2 Flow Rate FiO2 07/18/19 12:00 97.6 62 20 126/63 (84) 95 07/18/19 08:00 98.1 61 18 143/62 (89) 97 07/18/19 04:00 98.0 59 16 123/62 (82) 97 07/18/19 00:00 97.6 57 17 102/50 (67) 97 07/17/19 23:10 Room Air 07/17/19 20:00 97.9 54 21 109/46 (67) 97 Intake and Output 07/17/19 07/18/19 19:00 07:00 Intake Total 1624.166 ml 360 ml Balance 1624.166 ml 360 ml Intake Oral 900 ml 360 ml IV Total 724.166 ml # Voids 2 # Bowel Movements 1 Laboratory Tests 07/17/19 22:30: Urine Legionella Antigen [Pending] 07/18/19 08:30: White Blood Count 7.5, Red Blood Count 3.73L, Hemoglobin 11.4L, Hematocrit 33.5L , Mean Corpuscular Volume 90, Mean Corpuscular Hemoglobin 30.4, Mean Corpuscular Hemoglobin Concent 33.9, Red Cell Distribution Width 12.2, Platelet Count 168, Mean Platelet Volume 5.9L, Neutrophils (%) (Auto) 65.5, Lymphocytes ( %) (Auto) 21.4, Monocytes (%) (Auto) 6.7, Eosinophils (%) (Auto) 5.3H, Basophils (%) (Auto) 1.2, Sodium Level 143, Potassium Level 3.6, Chloride Level 110H, Carbon Dioxide Level 27, Anion Gap 6, Blood Urea Nitrogen 24H, Creatinine 1.5H, Estimat Glomerular Filtration Rate , Glucose Level 63L, Calcium Level 8.8 , Total Bilirubin 0.6, Aspartate Amino Transf (AST/SGOT) 15, Alanine Aminotransferase (ALT/SGPT) 12, Alkaline Phosphatase 112, Total Protein 6.7, Albumin 2.7L, Globulin 4.0, Albumin/Globulin Ratio 0.7L Height (Feet): 5 Height (Inches): 6.00 Weight (Pounds): 146 General Appearance: WD/WN, no apparent distress, alert EENT: PERRL/EOMI, normal ENT inspection Neck: non-tender, normal alignment, supple Cardiovascular: normal peripheral pulses, normal rate, regular rhythm, no JVD Respiratory/Chest: chest wall non-tender, lungs clear, normal breath sounds Abdomen: normal bowel sounds, non tender, soft, no organomegaly, no mass Extremities: normal range of motion, non-tender, normal inspection Neurologic: mobile health vehicle 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 Jul 18, 2019 18:00
[2019-07-18] MEDS ORDERED: Acetaminophen 650 MG SUPP RECTAL PRN ×2 (18:30)
[2019-07-18] MEDS ORDERED: Albuterol/Ipratropium 3ml neb HHN PRN (18:30)
[2019-07-18] MEDS ORDERED: Ipratropium 0.02% Inh Soln 2.5ml UD HHN PRN (18:30)
--- NOTE | 2019-07-18 19:00 | Consultation ---
DATE OF CONSULTATION: 07/18/2019 CARDIOLOGY CONSULTATION CONSULTING PHYSICIAN: Sixto Wiggins M.D. REFERRING PHYSICIAN: Miguelangel Frederick M.D. REASON FOR CONSULTATION: Management of hypertension, paroxysmal atrial fibrillation, coronary artery disease bypass. HISTORY OF PRESENT ILLNESS: The patient is a 84-year-old gentleman with history of hypertension, coronary artery disease with history of coronary artery bypass graft, history of paroxysmal atrial fibrillation who came to [facility] for urine tract infection, altered mental status. The patient is a very poor historian. The patient urinary tract infection, was concerned possible endocarditis. Blood cultures however have been negative. The patient was admitted from [facility] and was started on IV antibiotic. ID consultation with Dr. Stokes was also obtained. REVIEW OF SYSTEMS: Review of systems was negative other than what was mentioned in the history of present illness. PAST MEDICAL HISTORY: As mentioned above. FAMILY HISTORY: Noncontributory. SOCIAL HISTORY: detention resident. Does not smoke or drink alcohol. PHYSICAL EXAMINATION: VITAL SIGNS: Blood pressure of 126/60, pulse 62, respirations 18, and he is afebrile. HEAD AND NECK: Showed no JVD or carotid bruits. LUNGS: Clear. CARDIOVASCULAR: Regular S1 and S2 with no gallop or murmur. ABDOMEN: Soft and nontender. EXTREMITIES: No pitting edema. Sternotomy is intact. LABORATORY AND DIAGNOSTIC DATA: Labs show white count 7.5, hemoglobin 11.4, hematocrit 33.5, and platelet count of 168. Sodium 134, potassium 3.6, BUN of 24, creatinine 1.5, and glucose of 63. Troponin is negative. Urinalysis too numerous to count wbc's. Echocardiogram showed ejection fraction 40% to 45% with . No evidence of vegetation. ASSESSMENT AND PLAN: 1. Ischemic cardiomyopathy, ejection fraction of 40 to 45%, based on echocardiogram. Start the patient on low-dose Coreg and lisinopril. Recheck BMP. 2. History of coronary artery bypass graft on aspirin and Lipitor, add Coreg to his medical regimen. 3. Hyperlipidemia on Lipitor. 4. Urinary tract infection. 5. Hospital-acquired pneumonia. 6. Paroxysmal atrial fibrillation, currently in sinus rhythm, first-degree AV block. Thank you very much for allowing me to participate in the care of this patient. Please do not hesitate to contact me for any questions regarding my evaluation. Sincerely, Sixto Wiggins M.D. DR: Tommy JOB#: [id number] CC:
--- NOTE | 2019-07-18 19:20 | NUR ---
HAND-OFF: Report given to DENAE Rubio. The patient is resting on the bed without acute distress or shortness of breath. The patient's bed in the lowest position, call light in reach, and fall and aspiration precaution reinforced. The patient is stable in terms of physical symptoms and vitals signs. The patient's IV is intact. Endorsed plan of care.
--- NOTE | 2019-07-18 19:37 | NUR ---
NURSE NOTES: Received patient from DENAE Fong. Patient alert, talkative, and resting in bed comfortably. No signs of distress or pain noted. Patient able to make needs known. IV site checked, intact and patent, no signs of erythema, bleeding, or infiltration. Bed in lowest position, brakes on, and call light within reach. Will continue with plan of care.
[2019-07-18] MEDS ORDERED: Levemir Flexpen SUBQ SCH (21:00)
[2019-07-18] MEDS: Atorvastatin 20mg tab ORAL SCH (21:24)
[2019-07-18] MEDS: Levemir Flexpen SUBQ SCH (21:29)
[2019-07-19] VITALS: BP 138/67
[2019-07-19 04:00] VITALS: BP 143/72
[2019-07-19] MEDS: Piperacillin/Tazobactam 3.375 GM in NS 110 ML IVPB SCH ×3 (05:14→21:22)
[2019-07-19] MEDS: NovoLOG Insulin Flexpen SUBQ SCH ×4 (05:46→21:27)
--- NOTE | 2019-07-19 06:00 | Consultation ---
DATE OF CONSULTATION: CONSULTING PHYSICIAN: Ana Chao M.D. HISTORY OF PRESENT ILLNESS: The patient is an 84-year-old man, who I am well familiar from [facility]. The patient has a history of multiple medical issues including depression, hypertension, UTI, CAD, and dementia, was admitted to the hospital for medical stabilization. The patient presents with depressed mood, anhedonia, and low energy. The patient also has a history of coronary artery disease and bypass graft with chest pain. The patient has memory impairment and is unable to provide any meaningful history. PAST PSYCHIATRIC HISTORY: Depression, anxiety, and dementia. PAST MEDICAL HISTORY: As above. ALLERGIES: No known drug allergies. SUBSTANCE ABUSE HISTORY: No illicit drug use or alcohol. MENTAL STATUS EXAMINATION: The patient is alert and oriented to time, self, and place. Disoriented around the date. Mood is depressed. Affect is constricted, congruent with mood. Thought process, linear and goal oriented. Thought content, no suicidal or homicidal ideation. ASSESSMENT: AXIS I: Major depressive disorder. Anxiety disorder. Dementia. AXIS II: Deferred. AXIS III: As above. AXIS IV: Low. AXIS V: 50. PLAN: The patient will be continued on current medications. Provide the patient with reality orientation and supportive therapy. Ana Chao M.D. DR: MIRNA JOB#: [id number] CC:
--- NOTE | 2019-07-19 07:15 | NUR ---
HAND-OFF: Report given to DENAE Zamora. Patient asleep, no signs of distress or pain. Plan of care endorsed.
[2019-07-19 07:18] LABS: EOSINOPHILS % (AUTO) 7.2 % (0.0-3.0); HEMATOCRIT 31.5 % (42.0-52.0); LYMPHOCYTES % (AUTO) 20.4 % (20.0-45.0); MEAN CORPUSCULAR VOLUME 88 FL (80-99); MONOCYTES % (AUTO) 7.4 % (1.0-10.0); PLATELET COUNT 160 K/UL (150-450); RED BLOOD COUNT 3.56 M/UL (4.70-6.10); RED CELL DISTRIBUTION WIDTH 11.1 % (11.6-14.8); WHITE BLOOD COUNT 6.1 K/UL (4.8-10.8)
--- NOTE | 2019-07-19 07:30 | NUR ---
NURSE NOTES: Received report from Joanne/RN, Patient is asleep, Lying semi-duran's, resting comfortably. Respiration unlabored and even, No acute distress/SOB noted. IV site patent, asymptomatic. no bleeding or infiltration noted. Bed in lowest position and locked. Bed alarm engaged, side-rails up x3. Will continue plan of care.
[2019-07-19 07:34] LABS: ANION GAP 9 mmol/L (5-15); BLOOD UREA NITROGEN 20 mg/dL (7-18); CALCIUM 8.9 MG/DL (8.5-10.1); CARBON DIOXIDE 25 MMOL/L (21-32); CHLORIDE 109 MMOL/L (98-107); CREATININE 1.5 MG/DL (0.55-1.30); POTASSIUM 3.8 MMOL/L (3.5-5.1); SODIUM 143 MMOL/L (136-145)
[2019-07-19 08:00] VITALS: BP 158/69
--- NOTE | 2019-07-19 08:42 | NUR ---
RADIOLOGY DEPT., CHEST X-RAY DONE.-P.DYE
[2019-07-19] MEDS ORDERED: Lisinopril 10mg tab ORAL SCH (09:00)
[2019-07-19] MEDS ORDERED: Azithromycin 250mg tab ORAL SCH (09:00)
[2019-07-19] MEDS ORDERED: Cilostazol 100mg tab ORAL SCH (09:00)
--- NOTE | 2019-07-19 09:07 | Cardiac Electrophysiology PN ---
Assessment/Plan Assessment/Plan 1. Ischemic cardiomyopathy, ejection fraction of 40 to 45%, based on echocardiogram. On Coreg and lisinopril now. 2. History of CABG on aspirin, Lipitor and Coreg 3. Paroxysmal atrial fibrillation, currently in sinus rhythm, first-degree AV block. Is off anticoagulation and was off even at the [facility] 4. Hyperlipidemia on Lipitor. 5. Urinary tract infection. 6. Hospital-acquired pneumonia. DARON RN Subjective Subjective No CP or SOB. Alert in NAD. Objective Last 24 Hour Vital Signs Date Time Temp Pulse Resp B/P (MAP) Pulse Ox O2 Delivery O2 Flow Rate FiO2 07/19/19 04:00 63 07/19/19 04:00 97.4 69 20 143/72 (95) 96 07/19/19 00:00 99.0 64 18 138/67 (90) 94 07/19/19 00:00 64 07/18/19 21:25 79 143/70 07/18/19 21:00 Room Air 07/18/19 20:00 78 07/18/19 20:00 99.4 79 18 143/70 (94) 96 07/18/19 19:44 78 16 96 Room Air 21 07/18/19 18:00 98.1 81 20 133/70 (91) 97 07/18/19 17:33 81 07/18/19 16:00 97.8 66 18 146/70 (95) 95 07/18/19 12:00 97.6 62 20 126/63 (84) 95 Intake and Output 07/18/19 07/19/19 19:00 07:00 Intake Total 200 ml 230 ml Balance 200 ml 230 ml Intake Oral 200 ml 120 ml IV Total 110 ml # Voids 1 2 # Bowel Movements 2 2 Laboratory Tests Test 07/19/19 06:19 White Blood Count 6.1 K/UL (4.8-10.8) Red Blood Count 3.56 M/UL (4.70-6.10) L Hemoglobin 11.0 G/DL (14.2-18.0) L Hematocrit 31.5 % (42.0-52.0) L Mean Corpuscular Volume 88 FL (80-99) Mean Corpuscular Hemoglobin 30.8 PG (27.0-31.0) Mean Corpuscular Hemoglobin Concent 34.8 G/DL (32.0-36.0) Red Cell Distribution Width 11.1 % (11.6-14.8) L Platelet Count 160 K/UL (150-450) Mean Platelet Volume 6.1 FL (6.5-10.1) L Neutrophils (%) (Auto) 64.0 % (45.0-75.0) Lymphocytes (%) (Auto) 20.4 % (20.0-45.0) Monocytes (%) (Auto) 7.4 % (1.0-10.0) Eosinophils (%) (Auto) 7.2 % (0.0-3.0) H Basophils (%) (Auto) 1.0 % (0.0-2.0) Sodium Level 143 MMOL/L (136-145) Potassium Level 3.8 MMOL/L (3.5-5.1) Chloride Level 109 MMOL/L (98-107) H Carbon Dioxide Level 25 MMOL/L (21-32) Anion Gap 9 mmol/L (5-15) Blood Urea Nitrogen 20 mg/dL (7-18) H Creatinine 1.5 MG/DL (0.55-1.30) H Estimat Glomerular Filtration Rate mL/min (>60) Glucose Level 92 MG/DL (74-106) Calcium Level 8.9 MG/DL (8.5-10.1) Phosphorus Level 3.0 MG/DL (2.5-4.9) Magnesium Level 1.9 MG/DL (1.8-2.4) Microbiology Date/Time Source Procedure Growth Status 07/18/19 03:00 Sputum Induced Gram Stain - Final Resulted 07/18/19 03:00 Sputum Induced Sputum Culture Pending Resulted Objective HEAD AND NECK: No JVD or carotid bruits. LUNGS: Clear. CARDIOVASCULAR: Regular S1 and S2 with no gallop or murmur. Sternotomy intact ABDOMEN: Soft and nontender. EXTREMITIES: No pitting edema. Sixto Wiggins MD Jul 19, 2019 09:07
[2019-07-19] MEDS: Aspirin Baby 81mg ORAL SCH (09:35)
[2019-07-19] MEDS: Lisinopril 10mg tab ORAL SCH (09:37)
[2019-07-19] MEDS: Azithromycin 250mg tab ORAL SCH (09:37)
[2019-07-19] MEDS: Allopurinol 100mg Tab ORAL SCH (09:38)
[2019-07-19] MEDS: Heparin 5000 units/ml inj SUBQ SCH ×2 (09:47→21:24)
--- NOTE | 2019-07-19 10:24 | Diagnostic Imaging Report ---
Indication: Cough Technique: One view of the chest Comparison: 07/17/2019 Findings: The heart is enlarged. There is retrocardiac and right perihilar consolidation again demonstrated. Suspect small bilateral pleural effusions as well. Stable right-sided pleural calcifications, median sternotomy sutures Impression: Unchanged, over 2 days, findings as above.
[2019-07-19 12:00] VITALS: BP 105/90
--- NOTE | 2019-07-19 13:47 | NUR ---
CASE MANAGEMENT:REVIEW 07/19/19 SI: PNEUMONIA. MRSA UTI 98.2 65 18 158/69 97% ON RA BUN+20 CR+1.5 IS: IV VANCOMYCIN Q24 IV AZITHROMYCIN Q24 IV ZOSYN Q8HRS : MED/SURG STATUS 4 EAST DCP: FROM [facility]
[2019-07-19] MEDS ORDERED: Vancomycin 1.25gm/NS Premix 275 ML IVPB SCH (14:00)
[2019-07-19] MEDS ORDERED: NS 500ML ONE (14:06)
[2019-07-19] MEDS ORDERED: Tubing IV Secondary IV ONE (14:06)
--- NOTE | 2019-07-19 15:03 | NUR ---
*-* INSURANCE *-* ALL CLINICALS AND REVIEWS HAVE BEEN FAXED TO: TANISHA Odonnell Tracking#[id number] no CM yet fax#[phone]
[2019-07-19 16:00] VITALS: BP 126/61
--- NOTE | 2019-07-19 16:43 | General Progress Note ---
Assessment/Plan Problem List: (1) Acute respiratory failure ICD Codes: J96.00 - Acute respiratory failure, unspecified whether with hypoxia or hypercapnia SNOMED: 24559964 (2) Metabolic encephalopathy ICD Codes: G93.41 - Metabolic encephalopathy SNOMED: 13739890 (3) HAP (hospital-acquired pneumonia) ICD Codes: J18.9 - Pneumonia, unspecified organism; Y95 - Nosocomial condition SNOMED: 552093108 (4) History of COPD ICD Codes: Z87.09 - Personal history of other diseases of the respiratory system SNOMED: 968098904 (5) Acute on chronic renal failure ICD Codes: N17.9 - Acute kidney failure, unspecified; N18.9 - Chronic kidney disease, unspecified SNOMED: 212865732 (6) Atrial fibrillation ICD Codes: I48.91 - Unspecified atrial fibrillation SNOMED: 84778534 (7) CAD (coronary artery disease) ICD Codes: I25.10 - Atherosclerotic heart disease of [place] coronary artery without angina pectoris SNOMED: 89407880 (8) HTN (hypertension) ICD Codes: I10 - HTN (hypertension) SNOMED: 92012289 (9) Respiratory insufficiency ICD Codes: R06.89 - Respiratory insufficiency SNOMED: 905301401 (10) UTI (urinary tract infection) ICD Codes: N39.0 - Urinary tract infection, site not specified SNOMED: 47112949 Status: progressing Assessment/Plan: Edy Dubon is a 84 yo man with PMH of IDDM (type II), CKD (creatinine ~1.6 baseline), HTN, HLD, COPD (not on home O2), CHF (unknown EF), dementia (AAOx1-2 at baseline), Afib (not on A/C), CAD, GERD, and iron deficiency anemia who presented from [facility] with AMS, found with KELLEN, CXR concerning for developing PNA, and mild troponinemia likely 2/2 demand ischemia in setting of KELLEN on CKD, admitted for HCAP, KELLEN on CKD, and demand ischemia. #HCAP vs. CAP #MRSA UTI. Blood cultures negative so far. No signs of endocarditis bacteremia #hx COPD (not on home O2) #Rule out endocarditis. Patient with history of cardiac surgery but does not know for what. He does not know if he has any valves. > Afebrile without leukocytosis lactate 0.6 on admission > CXR with patchy consolidation in L mid and lower lung carter concerning for PNA vs atelectasis > UA with 3+ leuk est, 10-15 RBC, trace WBC, moderate bacteria > TTE shows no evidence of endocarditis but new systolic heart failure with EF 40-45% - S/p azithro and ceftriaxone x1 in ED. Continue IV abx to cover for HCAP and CAP with azithromycin, zosyn 3.375 [id number] (renally dosed) and vancomycin dose by trough and azithromycin 500mg IV (07/15- ). Day 4 - Plan for 5 day treatment for HCAP (Zosyn/azithromycin) and extend for 7 days for MRSA UTI - F/U BCX -no growth to date - Duonebs q6hrs PRN SOB/wheezing - Rectal tylenol PRN pain/fever, can change to PO once able to take PO - SAMPLE COORDINATOR eval -Appreciate infectious disease recommendations: Dr. Linn. #Systolic heart failure, compensated. New diagnosis Differential includes ischemic, versus tachycardia induced, versus cardiomyopathy -Appreciate cardiology recommendations: Dr. Wiggins -Monitor on telemetry -Lisinopril 10 mg p.o. daily -Aspirin 81 mg p.o. daily -Atorvastatin 40 mg p.o. nightly -Coreg 3.125 every 12 hours -Discontinue cilostazol #Encephalopathy likely 2/2 acute infections - Resolved #Reported tremors at SNF - EEG negative: no focal or lateralized slowing seen. No clear epileptiform discharges seen. Generalized slowing #hx dementia (baseline AAOx1-2 and conversant) > EEG negative - ?rigors vs actual tremors, reportedly new at SNF - Treatment for infections as per above - CT head without acute findings - Resume home memantine 10mg PO BID once mental status improves #KELLEN on CKD - RESOLVED - Baseline creatinine ~1.6 based on [facility] records of Cr 1.6 from 03/2019 - unchanged - Gentle IVF as per above - Hold home lasix - Monitor BMP and urine output #Mild troponinemia - downtrending - Likely demand ischemia in setting of KELLEN on CKD and infection - EKG with NSR, 1st degree block and nonspecific T wave changes #hx HTN, HLD #hx CHF (unknown EF) #hx Afib not on A/C #hx CAD - Continue aspirin 81mg PO daily, crestor 10mg PO qhs (atorvastatin 40mg PO daily while inpatient) -Discontinue cilostazol as patient has systolic heart failure - Hold home lasix until KELLEN resolves #hx GERD - Continue home protonix 40mg IV daily. Can change to PO once mental status improves #hx IDDM - Last A1C 6.8 from 05/2019 [facility] records - On lantus 23U qhs at SNF - Decrease to levemir 5U qhs - SSI lispro QACHS and monitor FS #Iron def anemia - Resume home ferrous sulfate 325mg PO BID once infection treated FEN Diabetic diet Fluids: none Heparin subq DVT ppx Full Code from [facility] from [facility] Discussed RN and patient, infectious disease, and cardiology. I spent 37 minutes on this patient encounter, including >50% on counseling and/or coordination of care. Time of note may not reflect time patient was seen Subjective Date patient seen: Jul 19, 2019 Constitutional: Denies: chills, diaphoresis, fever, malaise, weakness, other HEENT: Denies: eye pain, blurred vision, tearing, double vision, ear pain, ear discharge, nose pain, nose congestion, throat pain, throat swelling, mouth pain , mouth swelling, other Cardiovascular: Denies: chest pain, edema, irregular heart rate, lightheadedness, palpitations, syncope, other Respiratory: Denies: cough, orthopnea, shortness of breath, SOB with excertion , SOB at rest, sputum, stridor, wheezing, other Gastrointestinal/Abdominal: Denies: abdomen distended, abdominal pain, black stools, tarry stools, blood in stool, constipated, diarrhea, difficulty swallowing, nausea, poor appetite, poor fluid intake, rectal bleeding, vomiting , other Genitourinary: Denies: burning, discharge, frequency, flank pain, hematuria, incontinence, pain, urgency, other Neurologic/Psychiatric: Denies: anxiety, depressed, emotional problems, headache, numbness, paresthesia, pre-existing deficit, seizure, tingling, tremors, weakness, other Endocrine: Denies: excessive sweating, flushing, intolerance to cold, intolerance to heat, increased hunger, increased thirst, increased urine, unexplained weight gain, unexplained weight loss, other Hematologic/Lymphatic: Denies: anemia, easy bleeding, easy bruising, other Allergies: Coded Allergies: No Known Allergies (Unverified , 12/09/13) Subjective No acute events overnight per nursing. Patient feels much better. Her eyes continue to bother him but they are improved with the eyedrops He denies any fevers or chills. He denies any difficulty breathing cough fever or chills. His urine culture is growing MRSA. He denies any recent genital infection, or chronic indwelling [place]. Objective Last 24 Hour Vital Signs Date Time Temp Pulse Resp B/P (MAP) Pulse Ox O2 Delivery O2 Flow Rate FiO2 07/19/19 12:00 98.3 72 16 105/90 (95) 99 07/19/19 12:00 66 07/19/19 09:37 158/69 07/19/19 09:36 65 158/69 07/19/19 09:00 Room Air 07/19/19 08:16 76 16 95 Room Air 21 07/19/19 08:00 63 07/19/19 08:00 98.2 65 18 158/69 (98) 97 07/19/19 04:00 63 07/19/19 04:00 97.4 69 20 143/72 (95) 96 07/19/19 00:00 99.0 64 18 138/67 (90) 94 07/19/19 00:00 64 07/18/19 21:25 79 143/70 07/18/19 21:00 Room Air 07/18/19 20:00 78 07/18/19 20:00 99.4 79 18 143/70 (94) 96 07/18/19 19:44 78 16 96 Room Air 21 07/18/19 18:00 98.1 81 20 133/70 (91) 97 07/18/19 17:33 81 Intake and Output 07/18/19 07/19/19 19:00 07:00 Intake Total 200 ml 230 ml Balance 200 ml 230 ml Intake Oral 200 ml 120 ml IV Total 110 ml # Voids 1 2 # Bowel Movements 2 2 Laboratory Tests 07/19/19 06:19: White Blood Count 6.1, Red Blood Count 3.56L, Hemoglobin 11.0L, Hematocrit 31.5L , Mean Corpuscular Volume 88, Mean Corpuscular Hemoglobin 30.8, Mean Corpuscular Hemoglobin Concent 34.8, Red Cell Distribution Width 11.1L, Platelet Count 160, Mean Platelet Volume 6.1L, Neutrophils (%) (Auto) 64.0, Lymphocytes (%) (Auto) 20.4, Monocytes (%) (Auto) 7.4, Eosinophils (%) (Auto) 7.2H, Basophils (%) (Auto) 1.0, Sodium Level 143, Potassium Level 3.8, Chloride Level 109H, Carbon Dioxide Level 25, Anion Gap 9, Blood Urea Nitrogen 20H, Creatinine 1.5H, Estimat Glomerular Filtration Rate , Glucose Level 92, Calcium Level 8.9, Phosphorus Level 3.0, Magnesium Level 1.9 07/19/19 13:10: Vancomycin Level Trough 22.0H Height (Feet): 5 Height (Inches): 6.00 Weight (Pounds): 146 General Appearance: WD/WN, no apparent distress, alert EENT: PERRL/EOMI, normal ENT inspection Neck: non-tender, normal alignment, supple Cardiovascular: normal peripheral pulses, normal rate, regular rhythm, no JVD Respiratory/Chest: chest wall non-tender, lungs clear, normal breath sounds Abdomen: normal bowel sounds, non tender, soft, no organomegaly, no mass Extremities: normal range of motion, non-tender, normal inspection Edema: other - No lower extremity edema bilaterally Neurologic: ship harbor pilot II-XII grossly normal, no motor/sensory deficits, alert, oriented x 3, responsive Skin: normal pigmentation, warm/dry Esvin Cohen D.O. Jul 19, 2019 16:43
--- NOTE | 2019-07-19 17:05 | Infectious Diseases Prog Note ---
Assessment/Plan Assessment/Plan ASSESSMENT AND PLAN: 1. mrsa uti, complicated uti - vancomycin - day # 4 abx, plan for total of 7 days tx - doubt endocarditis - blood cultures negative and echo without vegetation mentioned - monitor cr 2. HCAP vs CAP, rule out aspiration pna - day # 4 abx - zosyn, vancomycin and azithromycin - plan for 5 days abx tx - chest x-ray stable 3. Elevated creatinine. 4. Diabetes. 5. Hypertension. 6. Blood sugar and blood pressure treatment per primary care team for diabetes and hypertension. 7. Chronic kidney disease. 8. Hyperlipidemia. 9. Chronic obstructive pulmonary disease. 10. Congestive heart failure. 11. Dementia. 12. Atrial fibrillation. 13. Iron deficient anemia. 14. Gastroesophageal reflux disease. 15. Continue treatment per primary consultants. 16. No known allergies. 17. Social history is negative. 18. Family history is noncontributory. 19. MAR is noted. 20. Case was discussed with RN. 21. Case discussed and communicatedwith Dr. Cohen regarding abx, management Subjective Constitutional: Reports: fatigue; Denies: fever HEENT: Denies: congestion Respiratory: Denies: shortness of breath Cardiovascular: Denies: chest pain Gastrointestinal/Abdominal: Denies: vomiting, diarrhea Genitourinary: Reports: dysuria - less, frequency - less, other - no sommers ; Denies: hematuria Neurologic: Denies: headache Psychiatric: Denies: depression Skin: Denies: rash Hematologic: Denies: bleeding Musculoskeletal: Denies: pain Allergies: Coded Allergies: No Known Allergies (Unverified , 12/09/13) Objective Vital Signs Last 24 Hour Vital Signs Date Time Temp Pulse Resp B/P (MAP) Pulse Ox O2 Delivery O2 Flow Rate FiO2 07/19/19 12:00 98.3 72 16 105/90 (95) 99 07/19/19 12:00 66 07/19/19 09:37 158/69 07/19/19 09:36 65 158/69 07/19/19 09:00 Room Air 07/19/19 08:16 76 16 95 Room Air 21 07/19/19 08:00 63 07/19/19 08:00 98.2 65 18 158/69 (98) 97 07/19/19 04:00 63 07/19/19 04:00 97.4 69 20 143/72 (95) 96 10/17/19 00:00 99.0 64 18 138/67 (90) 94 07/19/19 00:00 64 07/18/19 21:25 79 143/70 07/18/19 21:00 Room Air 07/18/19 20:00 78 07/18/19 20:00 99.4 79 18 143/70 (94) 96 07/18/19 19:44 78 16 96 Room Air 21 07/18/19 18:00 98.1 81 20 133/70 (91) 97 07/18/19 17:33 81 Height (Feet): 5 Height (Inches): 6.00 Weight (Pounds): 146 General Appearance: no acute distress HEENT: normocephalic, atraumatic, anicteric, mucous membranes moist Respiratory/Chest: lungs clear, normal breath sounds, no respiratory distress, no accessory muscle use Cardiovascular: normal rate, regular rhythm, no gallop/murmur, no JVD Abdomen: normal bowel sounds, soft, non tender, no organomegaly, non distended Genitourinary: other - no sommers, no cva pain Extremities: no cyanosis Skin: no rash Neurologic/Psychiatric: quantitative associate II-XII grossly normal, alert, oriented x 3, responsive Lymphatic: no neck adenopathy Musculoskeletal: no effusion Objective 07/19/19 - chest x-ray - Procedure: XRAY Chest 1v Indication: Cough Technique: One view of the chest Comparison: 07/17/2019 Findings: The heart is enlarged. There is retrocardiac and right perihilar consolidation again demonstrated. Suspect small bilateral pleural effusions as well. Stable right-sided pleural calcifications, median sternotomy sutures Impression: Unchanged, over 2 days, findings as above. 2-D echo - no vegetations mentioned Microbiology Date/Time Source Procedure Growth Status 07/15/19 07:30 Blood Blood Culture - Preliminary NO GROWTH AFTER 72 HOURS Resulted 07/18/19 03:00 Sputum Induced Gram Stain - Final Resulted 07/18/19 03:00 Sputum Induced Sputum Culture Pending Resulted 07/15/19 07:31 Urine,Clean Catch Urine Culture - Final Staphylococcus Aureus - Mrsa Complete Microbiology Date/Time Source Procedure Growth Status 07/18/19 03:00 Sputum Induced Gram Stain - Final Resulted 07/18/19 03:00 Sputum Induced Sputum Culture Pending Resulted Laboratory Tests Test 07/19/19 06:19 07/19/19 13:10 White Blood Count 6.1 K/UL (4.8-10.8) Red Blood Count 3.56 M/UL (4.70-6.10) L Hemoglobin 11.0 G/DL (14.2-18.0) L Hematocrit 31.5 % (42.0-52.0) L Mean Corpuscular Volume 88 FL (80-99) Mean Corpuscular Hemoglobin 30.8 PG (27.0-31.0) Mean Corpuscular Hemoglobin Concent 34.8 G/DL (32.0-36.0) Red Cell Distribution Width 11.1 % (11.6-14.8) L Platelet Count 160 K/UL (150-450) Mean Platelet Volume 6.1 FL (6.5-10.1) L Neutrophils (%) (Auto) 64.0 % (45.0-75.0) Lymphocytes (%) (Auto) 20.4 % (20.0-45.0) Monocytes (%) (Auto) 7.4 % (1.0-10.0) Eosinophils (%) (Auto) 7.2 % (0.0-3.0) H Basophils (%) (Auto) 1.0 % (0.0-2.0) Sodium Level 143 MMOL/L (136-145) Potassium Level 3.8 MMOL/L (3.5-5.1) Chloride Level 109 MMOL/L (98-107) H Carbon Dioxide Level 25 MMOL/L (21-32) Anion Gap 9 mmol/L (5-15) Blood Urea Nitrogen 20 mg/dL (7-18) H Creatinine 1.5 MG/DL (0.55-1.30) H Estimat Glomerular Filtration Rate mL/min (>60) Glucose Level 92 MG/DL (74-106) Calcium Level 8.9 MG/DL (8.5-10.1) Phosphorus Level 3.0 MG/DL (2.5-4.9) Magnesium Level 1.9 MG/DL (1.8-2.4) Vancomycin Level Trough 22.0 ug/mL (5.0-12.0) H Current Medications Medications (Trade) Dose Ordered Sig/Breanna Route PRN Reason Start Time Stop Time Status Last Admin Dose Admin Acetaminophen (Tylenol) 650 mg Q4H PRN RECTAL Mild Pain (Pain Scale 1-3) 07/18/19 18:30 08/14/19 18:29 Acetaminophen (Tylenol) 650 mg Q4H PRN RECTAL fever 07/18/19 18:30 08/14/19 18:29 Albuterol/ Ipratropium (Albuterol/ Ipratropium) 3 ml Q6H PRN HHN Shortness of Breath 07/18/19 18:30 07/23/19 18:29 Allopurinol (Zyloprim) 100 mg DAILY ORAL 07/19/19 09:00 08/16/19 08:59 07/19/19 09:38 Artificial Tears (Akwa-Tears) 2 drop Q2H PRN BOTH EYES Dry Eyes 07/18/19 18:30 08/17/19 18:29 07/19/19 14:00 Aspirin (ASA) 81 mg DAILY ORAL 07/19/19 09:00 08/16/19 08:59 07/19/19 09:35 Atorvastatin Calcium (Lipitor) 40 mg BEDTIME ORAL 07/18/19 21:00 08/15/19 22:59 07/18/19 21:24 Azithromycin (Zithromax) 500 mg DAILY ORAL 07/19/19 09:00 07/23/19 08:59 07/19/19 09:37 Carvedilol (Coreg) 3.125 mg EVERY 12 HOURS ORAL 07/18/19 21:00 08/17/19 20:59 07/19/19 09:36 Dextrose (Dextrose 50%) 25 ml Q30M PRN IV Hypoglycemia 07/18/19 18:15 08/14/19 12:14 Dextrose (Dextrose 50%) 50 ml Q30M PRN IV Hypoglycemia 07/18/19 18:15 08/14/19 12:14 Escitalopram Oxalate (Lexapro) 10 mg DAILY ORAL 07/19/19 09:00 08/18/19 08:59 07/19/19 09:37 Folic Acid (Folate) 1 mg DAILY ORAL 07/19/19 09:00 08/16/19 08:59 07/19/19 09:38 Heparin Sodium (Porcine) (Heparin 5000 units/ml) 5,000 units EVERY 12 HOURS SUBQ 07/18/19 21:00 08/14/19 20:59 07/19/19 09:47 Insulin Aspart (NovoLOG) BEFORE MEALS AND HS SUBQ 07/18/19 21:00 08/14/19 16:29 07/19/19 12:07 Insulin Detemir (Levemir) 5 units BEDTIME SUBQ 07/18/19 21:00 08/17/19 20:59 07/18/19 21:29 Lisinopril (Zestril) 10 mg DAILY ORAL 07/19/19 09:00 08/18/19 08:59 07/19/19 09:37 Pantoprazole (Protonix) 40 mg DAILY ORAL 07/19/19 09:00 08/18/19 08:59 07/19/19 09:38 Piperacillin Sod/ Tazobactam Sod 3.375 gm/Sodium Chloride 110 ml @ 27.5 mls/hr EVERY 8 HOURS IVPB 07/18/19 22:00 07/23/19 21:59 07/19/19 13:32 Vancomycin HCl (Vanco rx to dose) 1 ea DAILY PRN MISC Per rx protocol 07/19/19 09:00 08/14/19 12:29 Vancomycin HCl 1 gm/Sodium Chloride 275 ml @ 183.708 mls/hr Q24H IVPB 07/20/19 18:00 07/25/19 17:59 Judi Stokes MD Jul 19, 2019 17:05
[2019-07-19 18:26] LABS: BASOPHILS % (AUTO) 1.3 % (0.0-2.0); EOSINOPHILS % (AUTO) 5.6 % (0.0-3.0); HEMOGLOBIN 10.6 G/DL (14.2-18.0); LYMPHOCYTES % (AUTO) 13.4 % (20.0-45.0); MEAN CORPUSCULAR VOLUME 90 FL (80-99); NEUTROPHILS % (AUTO) 73.6 % (45.0-75.0); PLATELET COUNT 170 K/UL (150-450); RED BLOOD COUNT 3.55 M/UL (4.70-6.10); RED CELL DISTRIBUTION WIDTH 12.3 % (11.6-14.8); WHITE BLOOD COUNT 8.7 K/UL (4.8-10.8)
[2019-07-19 18:38] LABS: ALANINE AMINOTRANSFERASE 15 U/L (12-78); ALBUMIN 2.6 G/DL (3.4-5.0); ALBUMIN/GLOBULIN RATIO 0.7 (1.0-2.7); ALKALINE PHOSPHATASE 122 U/L (46-116); ANION GAP 9 mmol/L (5-15); ASPARTATE AMINO TRANSFERASE 19 U/L (15-37); BILIRUBIN,TOTAL 0.6 MG/DL (0.2-1.0); BLOOD UREA NITROGEN 23 mg/dL (7-18); CALCIUM 8.7 MG/DL (8.5-10.1); CARBON DIOXIDE 25 MMOL/L (21-32); CHLORIDE 108 MMOL/L (98-107); CREATININE 1.7 MG/DL (0.55-1.30); POTASSIUM 3.8 MMOL/L (3.5-5.1); SODIUM 142 MMOL/L (136-145)
--- NOTE | 2019-07-19 19:29 | NUR ---
HAND-OFF: Report given to Joanne/RN, Patient is awake, lying semi-duran's, Watching TV, No acute distress noted. Endorsed plan of care.
--- NOTE | 2019-07-19 19:30 | NUR ---
NURSE NOTES: Received patient from DENAE Zamora. Patient resting comfortably in bed, alert, and talkative. No signs of distress or pain noted. Patient able to make needs known. IV site checked, intact and patent, no signs of erythema, infiltration, or bleeding. Bed in lowest position, brakes on, bed alarm on, and call light within reach. Will continue with plan of care
[2019-07-19 20:00] VITALS: BP 120/63
[2019-07-19] MEDS: Atorvastatin 20mg tab ORAL SCH (21:22)
[2019-07-19] MEDS: Levemir Flexpen SUBQ SCH (21:28)
[2019-07-20] VITALS: BP 140/77
[2019-07-20 04:00] VITALS: BP 133/73
[2019-07-20] MEDS: Piperacillin/Tazobactam 3.375 GM in NS 110 ML IVPB SCH ×2 (05:17→15:11)
[2019-07-20] MEDS: NovoLOG Insulin Flexpen SUBQ SCH ×3 (06:08→16:56)
--- NOTE | 2019-07-20 07:20 | NUR ---
HAND-OFF: Report given to DENAE Mina and DENAE Ruiz. Patient eating breakfast, no signs of distress or pain noted. Plan of care endorsed.
[2019-07-20 07:24] LABS: ANION GAP 10 mmol/L (5-15); BLOOD UREA NITROGEN 20 mg/dL (7-18); CALCIUM 9.4 MG/DL (8.5-10.1); CARBON DIOXIDE 25 MMOL/L (21-32); CHLORIDE 108 MMOL/L (98-107); CREATININE 1.6 MG/DL (0.55-1.30); POTASSIUM 3.6 MMOL/L (3.5-5.1); SODIUM 143 MMOL/L (136-145)
--- NOTE | 2019-07-20 07:55 | NUR ---
NURSE NOTES: Received report from DENAE Rubio. Patient is awake and responsive, breathing regular with no acute distress noted at this time. Bed is in lowest position, breaks engaged, and call light is within reach at all times. IV is intact, LFA is running fluids at prescribed rate, R wrist is saline locked. Patient is comfortably resting in bed. Will continue to monitor.
[2019-07-20 08:00] VITALS: BP 153/71
--- NOTE | 2019-07-20 08:43 | NUR ---
RADIOLOGY DEPT., CHEST X-RAY DONE.-P.DYE
[2019-07-20] MEDS: Aspirin Baby 81mg ORAL SCH (09:33)
[2019-07-20] MEDS: Lisinopril 10mg tab ORAL SCH (09:34)
[2019-07-20] MEDS: Azithromycin 250mg tab ORAL SCH (09:34)
[2019-07-20] MEDS: Allopurinol 100mg Tab ORAL SCH (09:35)
[2019-07-20] MEDS: Heparin 5000 units/ml inj SUBQ SCH (09:36)
--- NOTE | 2019-07-20 11:31 | Diagnostic Imaging Report ---
Indication: Chest pain, shortness of breath Technique: XRAY Chest 1v Comparison: 07/19/2019 Findings: Stable cardiomegaly. Again there is evidence of prior cardiac surgery with median sternotomy. There is worsening aeration with increased interstitial opacification/edema and development of some hazy perihilar airspace opacities. Small left pleural effusion is again suggested. Trace right pleural effusion is unchanged. No appreciable pneumothorax. Osseous structures stable. Impression: Worsening of aeration suggesting CHF/pulmonary edema. Imposed infection/pneumonia not excluded. Follow-up recommended.
[2019-07-20 12:00] VITALS: BP 143/68
[2019-07-20] MEDS ORDERED: COREG3.125 MG ORAL (14:07)
[2019-07-20] MEDS ORDERED: ZITHROMAX250 MG ORAL (14:07)
[2019-07-20] MEDS ORDERED: ZOSYN 3.373.375 GM/1 IVPB (14:07)
[2019-07-20] MEDS ORDERED: ZESTRIL10 M1 ORAL (14:07)
[2019-07-20] MEDS ORDERED: VANCOMYCIN500 MG/100 IV (14:07)
[2019-07-20] MEDS ORDERED: Lomotil 2.5mg tab ORAL PRN (15:04)
[2019-07-20] MEDS ORDERED: LORazepam Inj 2mg/ml 1ml IV PRN (15:15)
--- NOTE | 2019-07-20 15:15 | NUR ---
*-* INSURANCE *-* ALL CLINICALS AND REVIEWS HAVE BEEN FAXED TO: TANISHA Odonnell Tracking#[id number] no CM yet fax#[phone]
--- NOTE | 2019-07-20 15:56 | NUR ---
NURSE NOTES: Patient having continuous bowel movements all day. Patient has been changed multiple times. Around 1500, patient called to be changed again. Told him I would be back in ten minutes. Asked the charge nurse to go see him. Patient said hes been sitting in his poop for hours. Charge nurse tried to clean him. He refused. Asked to call the police. Patient started throwing his arms around which were covered in poop. Patient is not oriented to where he is or what time it is. Patient continues to refuse being cleaned. Called Dr. Em whom ordered Ativan 0.5mg IV PRN. He also ordered an anti-diarrheal medication. Ativan given. Patient refused the other medication. Patient became less agitated. Along with other RN and RESEARCH LEADER, patient cleaned and bed linen changed. Patient to be discharged at 1730.
[2019-07-20 16:00] VITALS: BP 148/79
--- NOTE | 2019-07-20 16:04 | Cardiac Electrophysiology PN ---
Assessment/Plan Assessment/Plan 1. Ischemic cardiomyopathy, ejection fraction of 40 to 45%, On Coreg and lisinopril now. 2. History of CABG on aspirin, Lipitor and Coreg 3. Paroxysmal atrial fibrillation, currently in sinus rhythm, first-degree AV block. Is off anticoagulation and was off even at the [facility] 4. Hyperlipidemia on Lipitor. 5. Urinary tract infection. 6. Hospital-acquired pneumonia. DARON RN Subjective Subjective No CP or SOB. Alert in NAD. DC to [facility] in progress. Objective Last 24 Hour Vital Signs Date Time Temp Pulse Resp B/P (MAP) Pulse Ox O2 Delivery O2 Flow Rate FiO2 07/20/19 12:00 97.7 76 20 143/68 (93) 97 07/20/19 12:00 72 07/20/19 09:34 153/71 07/20/19 09:34 73 153/71 07/20/19 09:00 Room Air 07/20/19 08:00 97.0 73 18 153/71 (98) 96 07/20/19 08:00 73 07/20/19 04:00 97.5 71 20 133/73 (93) 96 07/20/19 04:00 73 07/20/19 00:00 74 07/20/19 00:00 97.3 73 18 140/77 (98) 95 07/19/19 21:23 75 120/63 07/19/19 21:00 Room Air 07/19/19 20:00 97.9 75 18 120/63 (82) 98 07/19/19 20:00 71 07/19/19 19:51 73 16 98 Room Air 21 Intake and Output 07/19/19 07/20/19 18:59 06:59 Intake Total 290 ml Balance 290 ml Intake Oral 180 ml IV Total 110 ml # Voids 2 3 # Bowel Movements 1 8 Laboratory Tests Test 07/19/19 18:09 07/20/19 06:12 White Blood Count 8.7 K/UL (4.8-10.8) Red Blood Count 3.55 M/UL (4.70-6.10) L Hemoglobin 10.6 G/DL (14.2-18.0) L Hematocrit 32.0 % (42.0-52.0) L Mean Corpuscular Volume 90 FL (80-99) Mean Corpuscular Hemoglobin 29.9 PG (27.0-31.0) Mean Corpuscular Hemoglobin Concent 33.2 G/DL (32.0-36.0) Red Cell Distribution Width 12.3 % (11.6-14.8) Platelet Count 170 K/UL (150-450) Mean Platelet Volume 6.0 FL (6.5-10.1) L Neutrophils (%) (Auto) 73.6 % (45.0-75.0) Lymphocytes (%) (Auto) 13.4 % (20.0-45.0) L Monocytes (%) (Auto) 6.0 % (1.0-10.0) Eosinophils (%) (Auto) 5.6 % (0.0-3.0) H Basophils (%) (Auto) 1.3 % (0.0-2.0) Sodium Level 142 MMOL/L (136-145) 143 MMOL/L (136-145) Potassium Level 3.8 MMOL/L (3.5-5.1) 3.6 MMOL/L (3.5-5.1) Chloride Level 108 MMOL/L (98-107) H 108 MMOL/L (98-107) H Carbon Dioxide Level 25 MMOL/L (21-32) 25 MMOL/L (21-32) Anion Gap 9 mmol/L (5-15) 10 mmol/L (5-15) Blood Urea Nitrogen 23 mg/dL (7-18) H 20 mg/dL (7-18) H Creatinine 1.7 MG/DL (0.55-1.30) H 1.6 MG/DL (0.55-1.30) H Estimat Glomerular Filtration Rate mL/min (>60) mL/min (>60) Glucose Level 182 MG/DL (74-106) H 133 MG/DL (74-106) H Calcium Level 8.7 MG/DL (8.5-10.1) 9.4 MG/DL (8.5-10.1) Total Bilirubin 0.6 MG/DL (0.2-1.0) Aspartate Amino Transf (AST/SGOT) 19 U/L (15-37) Alanine Aminotransferase (ALT/SGPT) 15 U/L (12-78) Alkaline Phosphatase 122 U/L (46-116) H Total Protein 6.5 G/DL (6.4-8.2) Albumin 2.6 G/DL (3.4-5.0) L Globulin 3.9 g/dL Albumin/Globulin Ratio 0.7 (1.0-2.7) L Phosphorus Level 3.0 MG/DL (2.5-4.9) Magnesium Level 1.9 MG/DL (1.8-2.4) Microbiology Date/Time Source Procedure Growth Status 07/18/19 03:00 Sputum Induced Gram Stain - Final Complete 07/18/19 03:00 Sputum Culture - Final Gaby Albicans Usual Respiratory Tere Complete 07/19/19 23:45 Stool Clostridium difficile Toxin Assay - Final Complete Objective HEAD AND NECK: No JVD LUNGS: Clear. CARDIOVASCULAR: Regular S1 and S2 with no gallop or murmur. Sternotomy intact ABDOMEN: Soft and nontender. EXTREMITIES: No pitting edema. Sixto Wiggins MD Jul 20, 2019 16:04
--- NOTE | 2019-07-20 16:33 | NUR ---
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 Patient to be picked up at 1730 to be taken to [facility].
--- NOTE | 2019-07-20 16:45 | Progress Note ---
DATE: 07/20/2019 SUBJECTIVE: The patient is presenting with depressed mood, anhedonia, worthlessness, hopelessness, decreased energy. The patient is compliant with medications. No behavior issues, tolerating medications. MENTAL STATUS EXAMINATION: The patient is alert and oriented times self, place, did not know the date. He is forgetful, cooperative, pleasant. Mood is depressed. Affect is constricted. Congruent with mood. Thought process is linear and goal oriented. Thought content, no suicidal or homicidal ideation. Cognition is impaired specifically memory. Insight and judgment is poor. ASSESSMENT: 1. Major depressive disorder. 2. Anxiety disorder. PLAN: We will continue current psychotropic medication. Provide the patient with reality orientation and supportive therapy. Ana Chao M.D. DR: Carla JOB#: [id number] CC:
--- NOTE | 2019-07-20 16:49 | NUR ---
NURSE NOTES: Report given to DENAE Valencia @ [facility]
--- NOTE | 2019-07-20 17:38 | Discharge Summary ---
Discharge Summary Hospital Course Date of Admission Jul 15, 2019 at 10:15 Date of Discharge 07/20/19 Admitting Diagnosis MRSA Urinary Tract Infection, Pneumonia, Altered Mental Status HPI Edy Dubon is a 84 year old male who was admitted on Jul 15, 2019 at 10:15 for Urinary Tract Infection; Altered Mental Status Consultations Infectious disease Psychiatry Cardiology Hospital Course Edy Dubon is a 84 yo man with PMH of IDDM (type II), CKD (creatinine ~1.6 baseline), HTN, HLD, COPD (not on home O2), CHF (unknown EF), dementia (AAOx1-2 at baseline), Afib (not on A/C), CAD, GERD, and iron deficiency anemia who presented from [facility] with AMS, found with KELLEN, CXR concerning for developing PNA, and mild troponinemia likely 2/2 demand ischemia in setting of KELLEN on CKD, admitted for HCAP, KELLEN on CKD, and demand ischemia. Patient was placed on azithromycin and Zosyn and vancomycin for HAP vs. CAP. Patient to complete 5 days of antibiotics. End date 07/21/19. Patient responded well to antibiotics. He was on room air at discharge denying any shortness of breath His urine culture grew MRSA. Given that this is an unusual bacteria to grow and investigation for endocarditis was performed. An echocardiogram was negative. Blood cultures were negative to date. Infectious disease recommended complete a 7-day course of vancomycin (4 more days) Echocardiogram showed a diagnosis of systolic heart failure with an ejection fraction of 40 to 45%. Cardiology was consulted who recommended Coreg 3.1 twice daily and lisinopril 10 mg p.o. daily. Cilastazol was discontinued as it is contraindicated in heart failure Patient with some diarrhea on discharge. C. difficile checked and was negative. Diarrhea likely secondary to antibiotics. Given Lomotil. PRN The patient was hemodynamically stable on discharge he was discharged back to his assisted facility. PHysical Exam Vital signs temperature 97.2, pulse 78, respirations 18, BP 148/79, SpO2 96% on RA General: WDWN male in NAD, A&Ox3 CV: RRR, no murmurs rubs or gallops Lungs: Lungs clear to auscultation bilaterally. No wheezes, rhonchi, or rales GI: Soft, nontender, nondistended, bowel sounds present Neuro: CN 2-12 intact bilaterally, no focal signs. Ext: No lower extremity edema bilaterally Skin: no rashes lesions or ulcers Msk: Joints symmetrical in upper extremity and lower extremity bilaterally, no joint swelling. Lymph: No lymphadenopathy in upper extremity and lower extremity #HCAP vs. CAP #MRSA UTI. Blood cultures negative so far. No signs of endocarditis bacteremia #hx COPD (not on home O2) #Rule out endocarditis. Patient with history of cardiac surgery but does not know for what. He does not know if he has any valves. > Afebrile without leukocytosis lactate 0.6 on admission > CXR with patchy consolidation in L mid and lower lung carter concerning for PNA vs atelectasis > UA with 3+ leuk est, 10-15 RBC, trace WBC, moderate bacteria > TTE shows no evidence of endocarditis but new systolic heart failure with EF 40-45% - S/p azithro and ceftriaxone x1 in ED. Continue IV abx to cover for HCAP and CAP with azithromycin, zosyn 3.375 [id number] (renally dosed) and vancomycin dose by trough and azithromycin 500mg IV (07/15- ). Day 4 - Plan for 5 day treatment for HCAP (Zosyn/azithromycin) and extend for 7 days for MRSA UTI - F/U BCX -no growth to date - Duonebs q6hrs PRN SOB/wheezing - Rectal tylenol PRN pain/fever, can change to PO once able to take PO - ENVIRONMENTAL AID eval -Appreciate infectious disease recommendations: Dr. Linn. #Systolic heart failure, compensated. New diagnosis Differential includes ischemic, versus tachycardia induced, versus cardiomyopathy -Appreciate cardiology recommendations: Dr. Wiggins -Monitor on telemetry -Lisinopril 10 mg p.o. daily -Aspirin 81 mg p.o. daily -Atorvastatin 40 mg p.o. nightly -Coreg 3.125 every 12 hours -Discontinue cilostazol #Encephalopathy likely 2/2 acute infections - Resolved #Reported tremors at [facility] - EEG negative: no focal or lateralized slowing seen. No clear epileptiform discharges seen. Generalized slowing #hx dementia (baseline AAOx1-2 and conversant) > EEG negative - ?rigors vs actual tremors, reportedly new at [facility] - Treatment for infections as per above - CT head without acute findings - Resume home memantine 10mg PO BID once mental status improves #KELLEN on CKD - RESOLVED - Baseline creatinine ~1.6 based on [facility] records of Cr 1.6 from 03/2019 - unchanged - Gentle IVF as per above - Hold home lasix - Monitor BMP and urine output #Mild troponinemia - downtrending - Likely demand ischemia in setting of KELLEN on CKD and infection - EKG with NSR, 1st degree block and nonspecific T wave changes #hx HTN, HLD #hx CHF (unknown EF) #hx Afib not on A/C #hx CAD - Continue aspirin 81mg PO daily, crestor 10mg PO qhs (atorvastatin 40mg PO daily while inpatient) -Discontinue cilostazol as patient has systolic heart failure - Hold home lasix until KELLEN resolves #hx GERD - Continue home protonix 40mg IV daily. Can change to PO once mental status improves #hx IDDM - Last A1C 6.8 from 05/2019 [facility] records - On lantus 23U qhs at SNF - Decrease to levemir 5U qhs - SSI lispro QACHS and monitor FS #Iron def anemia - Resume home ferrous sulfate 325mg PO BID once infection treated FEN Diabetic diet Fluids: none Heparin subq DVT ppx Full Code from [facility] from [facility] Discussed RN and patient, infectious disease, and cardiology. I spent >30 minutes on this discharge, including >50% on counseling and/or coordination of care. Time of note may not reflect time patient was seen Discharge Condition Upon Discharge: improving Discharge Disposition Patient was discharged to Discharge Diagnoses: (1) HAP (hospital-acquired pneumonia) (2) History of COPD (3) Acute on chronic renal failure (4) Metabolic encephalopathy (5) UTI (urinary tract infection) (6) HTN (hypertension) (7) Respiratory insufficiency (8) CAD (coronary artery disease) (9) Atrial fibrillation (10) Acute respiratory failure Esvin Cohen D.O. Jul 20, 2019 17:38
--- NOTE | 2019-07-20 17:45 | Electroencephalogram ---
DATE OF PROCEDURE: 07/15/2019 REQUESTING PHYSICIAN: Miguelangel Frederick M.D. READING PHYSICIAN: Edwin Garsia M.D. PROCEDURE PERFORMED: Electroencephalogram. HISTORY: This EEG was performed on an 84-year-old, gentleman with a history of multiple medical problems, who was observed to have an alteration in mental state. The purpose of this EEG was to evaluate the patient for the degree and type of cerebral dysfunction. TECHNICAL NOTE: This EEG was performed on a [employer] with electrodes placed on the scalp according to the International 10-20 system. [id number] and [id number] montages were used. The EEG was technically satisfactory and was performed while the patient was in a poorly responsive state. OBSERVATIONS: In the poorly responsive state, the background activity consisted of 4-5 Hz theta with intermixed delta frequencies. Intermittent poorly formed vertex waves were also seen from time to time. No definite focal abnormalities or epileptiform discharges were noted. IMPRESSION: This is an abnormal EEG characterized by: 1. Slowing of the background in the theta and delta range in the poorly responsive state. 2. The presence of poorly formed vertex waves seen during parts of the EEG. COMMENT: This study is consistent with an encephalopathy of a moderately severe degree. Clinical correlation is recommended. Edwin Garsia M.D., M.S.P.H. DR: Rg JOB#: [id number] PRECIOUS
[2019-07-20] MEDS ORDERED: Vancomycin 1 GM in NS 275 ML IVPB SCH (18:00)
--- NOTE | 2019-07-20 18:03 | Infectious Diseases Prog Note ---
Assessment/Plan Assessment/Plan ASSESSMENT AND PLAN: 1. mrsa uti, complicated uti - vancomycin - day # 5 abx, plan for total of 7 days tx - doubt endocarditis - blood cultures negative and echo without vegetation mentioned - monitor cr 2. HCAP vs CAP, rule out aspiration pna, chf/edema on chest x-ray - day # 5 abx - zosyn, vancomycin and azithromycin - plan for 5 days abx tx - monitor chest x-ray 3. Elevated creatinine. 4. Diabetes. 5. Hypertension. 6. Blood sugar and blood pressure treatment per primary care team for diabetes and hypertension. 7. Chronic kidney disease. 8. Hyperlipidemia. 9. Chronic obstructive pulmonary disease. 10. Congestive heart failure. 11. Dementia. 12. Atrial fibrillation. 13. Iron deficient anemia. 14. Gastroesophageal reflux disease. 15. Continue treatment per primary consultants. 16. No known allergies. 17. Social history is negative. 18. Family history is noncontributory. 19. MAR is noted. 20. Case was discussed with RN. 21. Case discussed and communicatedwith Dr. Cohen regarding abx, management Subjective Constitutional: Denies: fever HEENT: Denies: congestion Respiratory: Denies: shortness of breath Cardiovascular: Denies: chest pain Gastrointestinal/Abdominal: Denies: nausea, vomiting, diarrhea Genitourinary: Reports: other - no sommers Neurologic: Denies: headache Psychiatric: Denies: depression Skin: Denies: rash Hematologic: Denies: bleeding Musculoskeletal: Denies: pain Allergies: Coded Allergies: No Known Allergies (Unverified , 12/09/13) Objective Vital Signs Last 24 Hour Vital Signs Date Time Temp Pulse Resp B/P (MAP) Pulse Ox O2 Delivery O2 Flow Rate FiO2 07/20/19 16:00 97.2 78 18 148/79 (102) 96 07/20/19 12:00 97.7 76 20 143/68 (93) 97 07/20/19 12:00 72 07/20/19 09:34 153/71 07/20/19 09:34 73 153/71 07/20/19 09:00 Room Air 07/20/19 08:00 97.0 73 18 153/71 (98) 96 07/20/19 08:00 73 07/20/19 04:00 97.5 71 20 133/73 (93) 96 07/20/19 04:00 73 07/20/19 00:00 74 07/20/19 00:00 97.3 73 18 140/77 (98) 95 07/19/19 21:23 75 120/63 07/19/19 21:00 Room Air 07/19/19 20:00 97.9 75 18 120/63 (82) 98 07/19/19 20:00 71 07/19/19 19:51 73 16 98 Room Air 21 Height (Feet): 5 Height (Inches): 6.00 Weight (Pounds): 146 General Appearance: no acute distress HEENT: normocephalic, atraumatic, anicteric, mucous membranes moist Respiratory/Chest: lungs clear, normal breath sounds, no respiratory distress, no accessory muscle use Cardiovascular: normal rate, regular rhythm, no gallop/murmur, no JVD Abdomen: normal bowel sounds, soft, non tender, no organomegaly, non distended Genitourinary: other - no sommers Extremities: no cyanosis Skin: no rash Neurologic/Psychiatric: fashion consultant II-XII grossly normal, alert, oriented x 3, responsive Lymphatic: no neck adenopathy Musculoskeletal: no effusion Objective 07/19/19 - chest x-ray - Procedure: XRAY Chest 1v Indication: Cough Technique: One view of the chest Comparison: 07/17/2019 Findings: The heart is enlarged. There is retrocardiac and right perihilar consolidation again demonstrated. Suspect small bilateral pleural effusions as well. Stable right-sided pleural calcifications, median sternotomy sutures Impression: Unchanged, over 2 days, findings as above. Chest x-ray - 07/20/19 - Technique: XRAY Chest 1v Comparison: 07/19/2019 Findings: Stable cardiomegaly. Again there is evidence of prior cardiac surgery with median sternotomy. There is worsening aeration with increased interstitial opacification/edema and development of some hazy perihilar airspace opacities. Small left pleural effusion is again suggested. Trace right pleural effusion is unchanged. No appreciable pneumothorax. Osseous structures stable. Impression: Worsening of aeration suggesting CHF/pulmonary edema. Imposed infection/ pneumonia not excluded. Follow-up recommended. 2-D echo - no vegetations mentioned Microbiology Date/Time Source Procedure Growth Status 07/15/19 07:30 Blood Blood Culture - Preliminary NO GROWTH AFTER 4 DAYS Resulted 07/18/19 03:00 Sputum Induced Gram Stain - Final Complete 07/18/19 03:00 Sputum Culture - Final Gaby Albicans Usual Respiratory Tere Complete 07/19/19 23:45 Stool Clostridium difficile Toxin Assay - Final Complete 07/15/19 07:31 Urine,Clean Catch Urine Culture - Final Staphylococcus Aureus - Mrsa Complete Microbiology Date/Time Source Procedure Growth Status 07/18/19 03:00 Sputum Induced Gram Stain - Final Complete 07/18/19 03:00 Sputum Culture - Final Gaby Albicans Usual Respiratory Tere Complete 07/19/19 23:45 Stool Clostridium difficile Toxin Assay - Final Complete Laboratory Tests Test 07/19/19 18:09 07/20/19 06:12 White Blood Count 8.7 K/UL (4.8-10.8) Red Blood Count 3.55 M/UL (4.70-6.10) L Hemoglobin 10.6 G/DL (14.2-18.0) L Hematocrit 32.0 % (42.0-52.0) L Mean Corpuscular Volume 90 FL (80-99) Mean Corpuscular Hemoglobin 29.9 PG (27.0-31.0) Mean Corpuscular Hemoglobin Concent 33.2 G/DL (32.0-36.0) Red Cell Distribution Width 12.3 % (11.6-14.8) Platelet Count 170 K/UL (150-450) Mean Platelet Volume 6.0 FL (6.5-10.1) L Neutrophils (%) (Auto) 73.6 % (45.0-75.0) Lymphocytes (%) (Auto) 13.4 % (20.0-45.0) L Monocytes (%) (Auto) 6.0 % (1.0-10.0) Eosinophils (%) (Auto) 5.6 % (0.0-3.0) H Basophils (%) (Auto) 1.3 % (0.0-2.0) Sodium Level 142 MMOL/L (136-145) 143 MMOL/L (136-145) Potassium Level 3.8 MMOL/L (3.5-5.1) 3.6 MMOL/L (3.5-5.1) Chloride Level 108 MMOL/L (98-107) H 108 MMOL/L (98-107) H Carbon Dioxide Level 25 MMOL/L (21-32) 25 MMOL/L (21-32) Anion Gap 9 mmol/L (5-15) 10 mmol/L (5-15) Blood Urea Nitrogen 23 mg/dL (7-18) H 20 mg/dL (7-18) H Creatinine 1.7 MG/DL (0.55-1.30) H 1.6 MG/DL (0.55-1.30) H Estimat Glomerular Filtration Rate mL/min (>60) mL/min (>60) Glucose Level 182 MG/DL (74-106) H 133 MG/DL (74-106) H Calcium Level 8.7 MG/DL (8.5-10.1) 9.4 MG/DL (8.5-10.1) Total Bilirubin 0.6 MG/DL (0.2-1.0) Aspartate Amino Transf (AST/SGOT) 19 U/L (15-37) Alanine Aminotransferase (ALT/SGPT) 15 U/L (12-78) Alkaline Phosphatase 122 U/L (46-116) H Total Protein 6.5 G/DL (6.4-8.2) Albumin 2.6 G/DL (3.4-5.0) L Globulin 3.9 g/dL Albumin/Globulin Ratio 0.7 (1.0-2.7) L Phosphorus Level 3.0 MG/DL (2.5-4.9) Magnesium Level 1.9 MG/DL (1.8-2.4) Current Medications Medications (Trade) Dose Ordered Sig/Breanna Route PRN Reason Start Time Stop Time Status Last Admin Dose Admin Acetaminophen (Tylenol) 650 mg Q4H PRN RECTAL Mild Pain (Pain Scale 1-3) 07/18/19 18:30 08/14/19 18:29 Acetaminophen (Tylenol) 650 mg Q4H PRN RECTAL fever 07/18/19 18:30 08/14/19 18:29 Albuterol/ Ipratropium (Albuterol/ Ipratropium) 3 ml Q6H PRN HHN Shortness of Breath 07/18/19 18:30 07/23/19 18:29 Allopurinol (Zyloprim) 100 mg DAILY ORAL 07/19/19 09:00 08/16/19 08:59 07/20/19 09:35 Artificial Tears (Akwa-Tears) 2 drop Q2H PRN BOTH EYES Dry Eyes 07/18/19 18:30 08/17/19 18:29 07/19/19 14:00 Aspirin (ASA) 81 mg DAILY ORAL 07/19/19 09:00 08/16/19 08:59 07/20/19 09:33 Atorvastatin Calcium (Lipitor) 40 mg BEDTIME ORAL 07/18/19 21:00 08/15/19 22:59 07/19/19 21:22 Azithromycin (Zithromax) 500 mg DAILY ORAL 07/19/19 09:00 07/23/19 08:59 07/20/19 09:34 Carvedilol (Coreg) 3.125 mg EVERY 12 HOURS ORAL 07/18/19 21:00 08/17/19 20:59 07/20/19 09:34 Dextrose (Dextrose 50%) 25 ml Q30M PRN IV Hypoglycemia 07/18/19 18:15 08/14/19 12:14 Dextrose (Dextrose 50%) 50 ml Q30M PRN IV Hypoglycemia 07/18/19 18:15 08/14/19 12:14 Diphenoxylate HCl/ Atropine (Lomotil) 2.5 mg Q4H PRN ORAL Diarrhea 07/20/19 15:04 08/19/19 15:03 Escitalopram Oxalate (Lexapro) 10 mg DAILY ORAL 07/19/19 09:00 08/18/19 08:59 07/20/19 09:34 Folic Acid (Folate) 1 mg DAILY ORAL 07/19/19 09:00 08/16/19 08:59 07/20/19 09:34 Heparin Sodium (Porcine) (Heparin 5000 units/ml) 5,000 units EVERY 12 HOURS SUBQ 07/18/19 21:00 08/14/19 20:59 07/20/19 09:36 Insulin Aspart (NovoLOG) BEFORE MEALS AND HS SUBQ 07/18/19 21:00 08/14/19 16:29 07/20/19 16:56 Insulin Detemir (Levemir) 5 units BEDTIME SUBQ 07/18/19 21:00 08/17/19 20:59 07/19/19 21:28 Lisinopril (Zestril) 10 mg DAILY ORAL 07/19/19 09:00 08/18/19 08:59 07/20/19 09:34 Lorazepam (Ativan 2mg/ml 1ml) 0.5 mg Q6H PRN IV For Anxiety 07/20/19 15:15 07/27/19 15:14 07/20/19 15:10 Pantoprazole (Protonix) 40 mg DAILY ORAL 07/19/19 09:00 08/18/19 08:59 07/20/19 09:35 Piperacillin Sod/ Tazobactam Sod 3.375 gm/Sodium Chloride 110 ml @ 27.5 mls/hr EVERY 8 HOURS IVPB 07/18/19 22:00 07/23/19 21:59 07/20/19 15:11 Vancomycin HCl (Vanco rx to dose) 1 ea DAILY PRN MISC Per rx protocol 07/19/19 09:00 08/14/19 12:29 Vancomycin HCl 1 gm/Sodium Chloride 275 ml @ 183.708 mls/hr Q24H IVPB 07/20/19 18:00 07/25/19 17:59 Judi Stokes MD Jul 20, 2019 18:03
--- NOTE | 2019-07-20 18:40 | NUR ---
NURSE NOTES: Report given to [facility] ambulance personnel. IV continued on discharge because patient is to continue IV abx at SNF. monitoring engineer and ID band removed. Patient in stable condition, sleeping due to Ativan administration, but able to be aroused. No SOB/pain noted. Patient discharged safely via gurney with [facility]. Patient en route to [facility].
--- NOTE | 2019-07-22 00:22 | Cardiology Report ---
APPROVED REPORT EKG Measurement Heart [id number] Sinus rhythm with 1st degree AV block Nonspecific T wave abnormality Prolonged QT Abnormal ECG
--- NOTE | 2019-07-23 16:44 | NUR ---
*-* INSURANCE *-* ALL CLINICALS AND REVIEWS HAVE BEEN FAXED TO: TANISHA Odonnell Tracking#[id number] no CM yet fax#[phone]
== END 2019-07-20 18:40 | DRG 139 ==
LOC: EDBD 07:09 → EMR 07:47 → EDBEDREQ 10:09 → 4E 10:15 → 2E 07-18 18:29
DX: J18.9 Pneumonia, unspecified organism (principal); J44.9 Chronic obstructive pulmonary disease, unspecified; N39.0 Urinary tract infection, site not specified; N17.9 Acute kidney failure, unspecified; I24.8 Other forms of acute ischemic heart disease; I13.0 Hypertensive heart and chronic kidney disease with heart failure and stage 1 through stage 4 chronic kidney disease, or unspecified chronic kidney disease; N18.9 Chronic kidney disease, unspecified; G93.41 Metabolic encephalopathy; I50.22 Chronic systolic (congestive) heart failure; I48.0 Paroxysmal atrial fibrillation; F03.90 Unspecified dementia, unspecified severity, without behavioral disturbance, psychotic disturbance, mood disturbance, and anxiety; K21.9 Gastro-esophageal reflux disease without esophagitis; E11.22 Type 2 diabetes mellitus with diabetic chronic kidney disease; D50.9 Iron deficiency anemia, unspecified; B95.62 Methicillin resistant Staphylococcus aureus infection as the cause of diseases classified elsewhere; I25.10 Atherosclerotic heart disease of native coronary artery without angina pectoris; Y95 Nosocomial condition; J96.00 Acute respiratory failure, unspecified whether with hypoxia or hypercapnia; I44.0 Atrioventricular block, first degree; F32.9 Major depressive disorder, single episode, unspecified; F41.9 Anxiety disorder, unspecified; E78.5 Hyperlipidemia, unspecified; Z79.82 Long term (current) use of aspirin; Z95.1 Presence of aortocoronary bypass graft
CPT/HCPCS: 36415; 70450; 71045; 80048; 80053; 80202; 81003; 82164; 82550; 82553; 82962; 83036; 83605; 83735; 83880; 84100; 84484; 85025; 86738; 87040; 87070; 87081; 87086; 87181; 87205; 87324; 93005; 93306; 94664; 95819; 96361; 96365; 96367; 99285; J1815; J7030; S5561

== ENCOUNTER 2019-08-03 17:45 | Inpatient (IN) | payer MEDICARE, MEDICAID ==
[~2019-08-03] VITALS: Ht 180.3 cm; Wt 69.1 kg
[~2019-08-03 17:45] MED LIST changes: +ARTIFICIAL TEAR15 ML BOTH EYES; +ASPIRIN EC81 MG ORAL; +CILOSTAZOL100 MG PO; +COREG3.125 MG ORAL; +CRANBERRY450 M5 PO; +DOCUSATE SODIU100 MG ORAL; +FLOVENT2 PUFF1 INH; +IPRATROPIUM BRO15 ML NS; +MELATONIN 5 MG1 EAC1 ORAL; +MIRALAX17 G2 ORAL; +NAMENDA10 MG ORAL; +PANTOPRAZOLE SO40 MG ORAL; +SYSTANE 0.3-0.415 ML BOTH EYES; +VANCOMYCIN500 MG/100 IV; +ZESTRIL10 M1 ORAL; +ZITHROMAX250 MG ORAL; +ZOSYN 3.373.375 GM/1 IVPB
--- NOTE | 2019-08-03 18:05 | NUR ---
ED Nurse Note: Patient came in by ambulance for abnormal labs from [facility]. Patient is bedbound and A/Ox2; pleasantly confused. Denies any pain, SOB, N/V. Pt is incontinent. IV established on RFA 22G, blood drawn and sent to LAB. Landis catheter inserted per ERMD and urine collected and sent to lab. Pt has a scar on his chest, patient is unable to give any medical history.
[2019-08-03 18:17] LABS: BASOPHILS % (AUTO) 0.5 % (0.0-2.0); EOSINOPHILS % (AUTO) 3.5 % (0.0-3.0); HEMATOCRIT 38.7 % (42.0-52.0); HEMOGLOBIN 13.1 G/DL (14.2-18.0); LYMPHOCYTES % (AUTO) 12.7 % (20.0-45.0); MEAN CORPUSCULAR VOLUME 87 FL (80-99); MONOCYTES % (AUTO) 3.5 % (1.0-10.0); NEUTROPHILS % (AUTO) 79.9 % (45.0-75.0); PLATELET COUNT 175 K/UL (150-450); RED BLOOD COUNT 4.43 M/UL (4.70-6.10); RED CELL DISTRIBUTION WIDTH 11.5 % (11.6-14.8); WHITE BLOOD COUNT 11.7 K/UL (4.8-10.8)
[2019-08-03 18:27] LABS: ANION GAP 11 mmol/L (5-15); BLOOD UREA NITROGEN 65 mg/dL (7-18); CALCIUM 9.2 MG/DL (8.5-10.1); CARBON DIOXIDE 26 MMOL/L (21-32); CHLORIDE 108 MMOL/L (98-107); CREATININE 4.5 MG/DL (0.55-1.30); POTASSIUM 4.4 MMOL/L (3.5-5.1); SODIUM 145 MMOL/L (136-145)
[2019-08-03 18:30] VITALS: BP 181/87
--- NOTE | 2019-08-03 18:32 | NUR ---
ED Nurse Note: Notified ERMD of BP 160/85, no new orders given.
--- NOTE | 2019-08-03 18:36 | NUR ---
ED Nurse Note: CXR done at bedside.
[2019-08-03 18:38] LABS: ALANINE AMINOTRANSFERASE 14 U/L (12-78); ALBUMIN 3.1 G/DL (3.4-5.0); ALBUMIN/GLOBULIN RATIO 0.6 (1.0-2.7); ALKALINE PHOSPHATASE 128 U/L (46-116); ASPARTATE AMINO TRANSFERASE 20 U/L (15-37); BILIRUBIN,TOTAL 0.6 MG/DL (0.2-1.0)
--- NOTE | 2019-08-03 18:55 | Diagnostic Imaging Report ---
EXAM: XR Chest, 1 View CLINICAL HISTORY: CP TECHNIQUE: Frontal view of the chest. COMPARISON: Chest x-ray dated 07 20 2019 FINDINGS: Lungs: Again seen is opacity within the mid to lower left lung which may represent pneumonia. Underlying mass is not excluded. Pleural space: Small bilateral pleural effusions. No pneumothorax. Heart: Unremarkable. No cardiomegaly. Mediastinum: Unremarkable. Bones joints: Evidence of prior median sternotomy. IMPRESSION: 1. Again seen is opacity within the mid to lower left lung which may represent pneumonia. Underlying mass is not excluded. 2. Small bilateral pleural effusions.
--- NOTE | 2019-08-03 19:06 | NUR ---
HAND-OFF: Report given to DENAE Morris. Swabs done and belongings checklist done.
[2019-08-03 19:38] VITALS: BP 156/76
[2019-08-03 20:35] VITALS: BP 156/76
--- NOTE | 2019-08-03 20:50 | Emergency Room Report ---
History of Present Illness General Chief Complaint: Abnormal Labs Source: Patient, EMS Present Illness HPI 84-year-old male presents ED for evaluation. [facility] Reportedly had abnormal labs. Noted to have elevated BUN and creatinine on labs done today. Patient states he feels fine. Denies any dizziness or weakness. Denies any history of dialysis. Denies chest pain or shortness of breath. No other aggravating relieving factors. Denies any other associated symptoms Allergies: Coded Allergies: No Known Allergies (Unverified , 12/09/13) Patient History Past Medical History: DM, HTN, CHF, AFib, COPD, dementia Social History: Denies: smoking, alcohol use, drug use Immunizations: UTD Reviewed Nursing Documentation: PMH: Agreed; PSxH: Agreed Nursing Documentation-PMH Hx Cardiac Problems: Yes - heart failure a-fib Hx Hypertension: Yes Hx COPD: Yes Hx Diabetes: Yes Hx Cancer: No Hx Gastrointestinal Problems: No Hx Neurological Problems: Yes Hx Dementia: Yes Hx Weakness: Yes Hx Fatigue: Yes Review of Systems All Other Systems: negative except mentioned in HPI Physical Exam Vital Signs Date Time Temp Pulse Resp B/P (MAP) Pulse Ox O2 Delivery O2 Flow Rate FiO2 08/03/19 17:38 98.8 81 17 181/87 (118) 99 Room Air Sp02 EP Interpretation: reviewed, normal General Appearance: no apparent distress, alert, GCS 15, non-toxic Head: normocephalic, atraumatic Eyes: bilateral eye normal inspection, bilateral eye PERRL ENT: hearing grossly normal, normal pharynx, no angioedema, normal voice Neck: full range of motion, supple/symm/no masses Respiratory: chest non-tender, lungs clear, crackles, speaking full sentences Cardiovascular #1: regular rate, rhythm, no edema Cardiovascular #2: 2+ carotid (R), 2+ carotid (L), 2+ radial (R), 2+ radial (L) , 2+ dorsalis pedis (R), 2+ dorsalis pedis (L) Gastrointestinal: normal bowel sounds, non tender, soft, non-distended, no guarding, no rebound Rectal: deferred Genitourinary: normal inspection, no CVA tenderness Musculoskeletal: back normal, gait/station normal, normal range of motion, non- tender Neurologic: alert, oriented x3, responsive, motor strength/tone normal, sensory intact, speech normal Psychiatric: judgement/insight normal, memory normal, mood/affect normal, no suicidal/homicidal ideation Reflexes: 3+ bicep (R), 3+ bicep (L), 3+ tricep (R), 3+ tricep (L), 3+ knee (R) , 3+ knee (L) Skin: other - see nursing skin notes Lymphatic: no adenopathy Medical Decision Making Diagnostic Impression: Primary Impression: Acute on chronic renal failure Qualified Codes: N17.9 - Acute kidney failure, unspecified; N18.9 - Chronic kidney disease, unspecified Additional Impressions: Elevated troponin Pleural effusion ER Course Hospital Course 84 yo M presents to ED for abnormal BUN/Cr Differential diagnoses include: NM/unstable angina, fluid overload, CHF exacerabation, hyperkalemia, uremia Clinical course Patient placed on stretcher. on pvc monitor. After initial history and physical I ordered labs, EKG, chest x-ray, IVFs labs reviewed- BUN/Cr 65/4.5, trop 0.109, BNP elevated EKG - NSR, some PVCS noted, no acute ischemic changes interpreted by me Chest x-ray- large L sided opacity L lung seen on previous CXR patient denies chest pain. likely troponin leak. given abx. given IVFs. Case discussed with Dr. Rosas and he agreed to accept the patient to his service for further care and support I. I feel this is a highly complex case requiring extensive working including EKG/Rhythm strip, Xray/CT/US, Blood/urine lab work, repeat exams while in ED, and administration of strong opiates/narcotics for pain control, admission to hospital or close patient follow up. Diagnosis - acute on chronic renal failure, elevated troponin, pleural effusion admitted to telemetry in serious condition Labs Test 08/03/19 18:00 08/03/19 19:30 White Blood Count 11.7 K/UL (4.8-10.8) Red Blood Count 4.43 M/UL (4.70-6.10) Hemoglobin 13.1 G/DL (14.2-18.0) Hematocrit 38.7 % (42.0-52.0) Mean Corpuscular Volume 87 FL (80-99) Mean Corpuscular Hemoglobin 29.6 PG (27.0-31.0) Mean Corpuscular Hemoglobin Concent 34.0 G/DL (32.0-36.0) Red Cell Distribution Width 11.5 % (11.6-14.8) Platelet Count 175 K/UL (150-450) Mean Platelet Volume 5.9 FL (6.5-10.1) Neutrophils (%) (Auto) 79.9 % (45.0-75.0) Lymphocytes (%) (Auto) 12.7 % (20.0-45.0) Monocytes (%) (Auto) 3.5 % (1.0-10.0) Eosinophils (%) (Auto) 3.5 % (0.0-3.0) Basophils (%) (Auto) 0.5 % (0.0-2.0) Sodium Level 145 MMOL/L (136-145) Potassium Level 4.4 MMOL/L (3.5-5.1) Chloride Level 108 MMOL/L (98-107) Carbon Dioxide Level 26 MMOL/L (21-32) Anion Gap 11 mmol/L (5-15) Blood Urea Nitrogen 65 mg/dL (7-18) Creatinine 4.5 MG/DL (0.55-1.30) Estimat Glomerular Filtration Rate mL/min (>60) Glucose Level 129 MG/DL (74-106) Calcium Level 9.2 MG/DL (8.5-10.1) Total Bilirubin 0.6 MG/DL (0.2-1.0) Aspartate Amino Transf (AST/SGOT) 20 U/L (15-37) Alanine Aminotransferase (ALT/SGPT) 14 U/L (12-78) Alkaline Phosphatase 128 U/L (46-116) Troponin I 0.109 ng/mL (0.000-0.056) Pro-B-Type Natriuretic Peptide 8749 pg/mL (0-125) Total Protein 7.9 G/DL (6.4-8.2) Albumin 3.1 G/DL (3.4-5.0) Globulin 4.8 g/dL Albumin/Globulin Ratio 0.6 (1.0-2.7) Lactic Acid Level 1.10 mmol/L (0.4-2.0) EKG Diagnostic Results Rate: normal Rhythm: NSR ST Segments: no acute changes ASA given to the pt in ED: No Rhythm Strip Diag. Results EP Interpretation: yes Rhythm: NSR, other - PVCs Chest X-Ray Diagnostic Results Chest X-Ray Diagnostic Results : Chest X-Ray Ordered: Yes # of Views/Limited/Complete: 1 View Indication: Shortness of Breath EP Interpretation: Yes Interpretation: no pneumothorax, other - L sided opacity. pneumonia vs pleural effusion vs mass Impression: Other - opacity L lung Electronically Signed by: Electronically signed by Filiberto Alba MD Last Vital Signs Date Time Temp Pulse Resp B/P (MAP) Pulse Ox O2 Delivery O2 Flow Rate FiO2 08/03/19 19:38 98.8 78 18 156/76 99 Room Air Status: improved Disposition: ADMITTED INPATIENT Condition: Serious Referrals: Miguelangel Frederick MD (PCP) Filiberto Alba MD Aug 03, 2019 20:50
--- NOTE | 2019-08-03 21:13 | NUR ---
ED Nurse Note: Patient was admited to Tele unit due to renal failure. Patient was transfered to the unit via gurney, by ACLS protocol, with all belongings. Patient AAO x1-2, VSS at this time, skin is warm to touch.
[2019-08-04] VITALS: BP 163/79
--- NOTE | 2019-08-04 | NUR ---
NURSE NOTES: Got report from Marianne in ER. Pt arrived via gurney from ER. Pt in stable condition. Denies any pain. Pt is A+Ox1-2. Denies any n/v or SOB. No skin issues noted. monitoring manager placed on pt Sinus Rhythm on the monitor. Pt is very weak and is bedrest. Pt can turn self in bed. VSS T:97.7 HR:99 R:18 BP:150/76 O2:100% on room air. Pt resting in bed comfortably. bed in low and locked position, call light within reach, bedside table within reach. Continue to monitor. Orders placed by Dr. Ramires
--- NOTE | 2019-08-04 03:00 | NUR ---
Troponin: 0.[address] Nelson called back and said no new orders. Continue to monitor.
[2019-08-04 04:00] VITALS: BP 150/76
--- NOTE | 2019-08-04 07:00 | NUR ---
HAND-OFF: Report given to Mariana Cruz.
--- NOTE | 2019-08-04 07:39 | NUR ---
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 Pt has a sommers for retention, sommers is patent. Call light is within reach. Pt is on restraints. Bed is locked and in lowest position. will continuer to monitor pt and follow plans of care.
[2019-08-04 08:00] VITALS: BP 161/84
[2019-08-04] MEDS ORDERED: Docusate 100mg cap ORAL SCH (09:00)
--- NOTE | 2019-08-04 09:09 | History and Physical ---
History of Present Illness General Date patient seen: Aug 04, 2019 Reason for Hospitalization: Abnormal Labs Present Illness HPI Edy Dubon is a 84 yo man with PMH of IDDM (type II), CKD (creatinine ~1.6 baseline), HTN, HLD, COPD (not on home O2), CHF (unknown EF), dementia (AAOx1-2 at baseline), Afib (not on A/C), CAD, GERD, and iron deficiency anemia who presented from [facility] with abnormal labs. Patient found to have a creatinine of up to 4.5. Denies any oliguria, confusion, chest pain, metallic taste in his mouth. He denies any chest pain or shortness of breath. Patient was given gentle fluids but with minimal improvement in his creatinine. He was thus transferred to [facility] for further evaluation and management. In the ER the patient was afebrile with a temperature 98.8 pulse 81 respiration 17 blood pressure elevated at 181/87 saturating 99% on room air. WBC 11.7 creatinine 4.5 BUN 66. Troponin elevated at 0.131. Chest x-ray shows a mid left lung opacity. Urinalysis shows numerous to count WBCs, 2+ blood, 3+ leuk esterase, moderate bacteria. Landis catheter inserted and patient admitted to telemetry. Allergies: No known allergies Medications: revieweed PMhx: see HPI Surgical HIstory: Prior CABG Family history: No kidney problems Social Hi denies tobacco, alcohol, drug use Allergies: Coded Allergies: No Known Allergies (Unverified , 12/09/13) Medication History Scheduled Allopurinol* (Allopurinol*), 100 MG ORAL DAILY, (Reported) Aspirin Ec* (Aspirin Ec*), 81 MG ORAL DAILY, (Reported) Carvedilol (Coreg), 3.125 MG ORAL EVERY 12 HOURS Cranberry Fruit (Cranberry), 450 MG PO DAILY, (Reported) Docusate Sodium* (Docusate Sodium*), 100 MG ORAL TWICE A DAY, (Reported) Ferrous Sulfate* (Ferrous Sulfate*), 325 MG ORAL TWICE A DAY, (Reported) Fluticasone Propionate (Flovent Hfa), 1 PUFFS INH BID, (Reported) Folic Acid* (Folic Acid*), 1 MG ORAL DAILY, (Reported) Furosemide* (Lasix*), 20 MG ORAL DAILY, (Reported) Insulin Glargine (Lantus), 23 UNITS SUBQ DAILY, (Reported) Ipratropium [place] (Ipratropium [place]), 2 SPR NS THREE TIMES A DAY, (Reported ) Lisinopril* (Zestril*), 10 MG ORAL DAILY Melatonin (Melatonin 5 Mg Tablet), 1 TAB ORAL BEDTIME, (Reported) Memantine Hcl* (Namenda*), 10 MG ORAL TWICE A DAY, (Reported) Nateglinide* (Starlix*), 60 MG ORAL THREE TIMES A DAY, (Reported) Pantoprazole* (Pantoprazole*), 40 MG ORAL DAILY, (Reported) Rosuvastatin Calcium* (Crestor*), 10 MG ORAL DAILY, (Reported) Scheduled PRN Acetaminophen* (Acetaminophen*), 650 MG ORAL Q6H PRN for Mild Pain/Temp > 100.5, (Reported) Discontinued Medications Azithromycin* (Zithromax*), 500 MG ORAL DAILY Discontinued Reason: Therapy completed Dextran 70/Hypromellose (Artificial Tears Eye Drops*), 1 DROP BOTH EYES BID, ( Reported) Discontinued Reason: Therapy completed Olopatadine (Patanol), 1 DROP BOTH EYES THREE TIMES A DAY PRN for ITCHY EYES, ( Reported) Discontinued Reason: Pt stopped taking med Vjfmqhdpldnk-Avyi-Shkuelpe,Iso (Zosyn 3.375 Gm Pre Mix-Bag), 3.375 GM IVPB EVERY 8 HOURS Discontinued Reason: Therapy completed Polyethylene Glycol 3350* (Miralax*), 17 GM ORAL DAILY, (Reported) Discontinued Reason: Pt stopped taking med Propylene Glycol/Peg 400 (Systane 0.3-0.4% Eye Drops), 1 DROP BOTH EYES DAILY PRN for Dry Eyes, (Reported) Discontinued Reason: Pt stopped taking med Vancomycin Hcl/D5w (Vancomycin-D5w 500 Mg/100 Ml), 1,000 MG IV DAILY Discontinued Reason: Therapy completed Patient History Healthcare decision maker Resuscitation status Full Advanced Directive on File Review of Systems Constitutional: Denies: see HPI, chills, sweats, fever, malaise, weakness, other Eye: Denies: see HPI, eye pain, blurred vision, tearing, double vision, nose pain, nose congestion, acuity changes, discharge, other ENT: Denies: see HPI, ear pain, ear discharge, nose pain, nose congestion, throat pain, throat swelling, mouth pain, hearing loss, nasal discharge, other Respiratory: Denies: see HPI, cough, orthopnea, shortness of breath, stridor, wheezing, MARTINEZ, sputum, other Cardiovascular: Denies: see HPI, chest pain, edema, palpitations, syncope, PND , other Gastrointestinal: Denies: see HPI, abdominal pain, constipation, diarrhea, nausea, vomiting, melena, hematemesis, other Genitourinary: Denies: see HPI, discharge, dysuria, frequency, hematuria, pain , retention, incontinence, urgency, vag bleed/dc, other Musculoskeletal: Denies: see HPI, back pain, gout, joint pain, joint swelling, muscle pain, muscle stiffness, other Skin: Denies: see HPI, rash, change in color, change in hair/nails, dryness, lesions, other Psychiatric: Denies: see HPI, prior hx, anxiety, depressed feelings, emotional problems, SI, HI, hallucinations, other Neurological: Denies: see HPI, headache, numbness, paresthesia, seizure, tingling, tremors, focal weakness, syncope, dizziness, other Endocrine: Denies: see HPI, excessive sweating, flushing, intolerance to temperature, increased thirst, increased urine, unexplained weight loss, other Hematologic/Lymphatic: Denies: see HPI, anemia, blood clots, easy bleeding, easy bruising, swollen glands, diathesis, other Physical Exam General Appearance: WD/WN, no apparent distress, alert, confused Lines, tubes and drains: peripheral HEENT: normocephalic, atraumatic Neck: non-tender, normal alignment, supple Respiratory/Chest: chest wall non-tender, lungs clear, normal breath sounds Cardiovascular/Chest: normal peripheral pulses, normal rate, regular rhythm, no JVD Abdomen: normal bowel sounds, non tender, soft, no organomegaly, no mass Extremities: normal range of motion, non-tender, normal inspection Skin Exam: normal pigmentation, warm/dry Neurologic: vice president medical affairs II-XII grossly normal, no motor/sensory deficits, alert, oriented x 3, normal mood/affect Lymphatic: anterior cervical - No lymphadenopathy Last 24 Hour Vital Signs Date Time Temp Pulse Resp B/P (MAP) Pulse Ox O2 Delivery O2 Flow Rate FiO2 08/04/19 05:09 Room Air 08/04/19 04:00 65 08/04/19 04:00 98.9 75 18 150/76 (100) 97 08/04/19 00:00 76 08/04/19 00:00 98.3 74 18 163/79 (107) 98 08/03/19 20:35 98.8 78 18 156/76 99 Room Air 08/03/19 20:35 98.6 67 18 155/78 98 Room Air 08/03/19 19:38 98.8 78 18 156/76 99 Room Air 08/03/19 18:30 98.8 80 17 181/87 99 Room Air 08/03/19 17:38 98.8 81 17 181/87 (118) 99 Room Air Intake and Output 08/03/19 08/04/19 19:00 07:00 Output Total 350 ml 2800 ml Balance -350 ml -2800 ml Output Urine Total 350 ml 2800 ml # Bowel Movements 1 Laboratory Tests Test 08/03/19 18:00 08/03/19 19:30 08/04/19 01:10 White Blood Count 11.7 K/UL (4.8-10.8) H Red Blood Count 4.43 M/UL (4.70-6.10) L Hemoglobin 13.1 G/DL (14.2-18.0) L Hematocrit 38.7 % (42.0-52.0) L Mean Corpuscular Volume 87 FL (80-99) Mean Corpuscular Hemoglobin 29.6 PG (27.0-31.0) Mean Corpuscular Hemoglobin Concent 34.0 G/DL (32.0-36.0) Red Cell Distribution Width 11.5 % (11.6-14.8) L Platelet Count 175 K/UL (150-450) Mean Platelet Volume 5.9 FL (6.5-10.1) L Neutrophils (%) (Auto) 79.9 % (45.0-75.0) H Lymphocytes (%) (Auto) 12.7 % (20.0-45.0) L Monocytes (%) (Auto) 3.5 % (1.0-10.0) Eosinophils (%) (Auto) 3.5 % (0.0-3.0) H Basophils (%) (Auto) 0.5 % (0.0-2.0) Sodium Level 145 MMOL/L (136-145) Potassium Level 4.4 MMOL/L (3.5-5.1) Chloride Level 108 MMOL/L (98-107) H Carbon Dioxide Level 26 MMOL/L (21-32) Anion Gap 11 mmol/L (5-15) Blood Urea Nitrogen 65 mg/dL (7-18) H Creatinine 4.5 MG/DL (0.55-1.30) H Estimat Glomerular Filtration Rate mL/min (>60) Glucose Level 129 MG/DL (74-106) H Calcium Level 9.2 MG/DL (8.5-10.1) Total Bilirubin 0.6 MG/DL (0.2-1.0) Aspartate Amino Transf (AST/SGOT) 20 U/L (15-37) Alanine Aminotransferase (ALT/SGPT) 14 U/L (12-78) Alkaline Phosphatase 128 U/L (46-116) H Troponin I 0.109 ng/mL (0.000-0.056) 0.131 ng/mL (0.000-0.056) Pro-B-Type Natriuretic Peptide 8749 pg/mL (0-125) H Total Protein 7.9 G/DL (6.4-8.2) Albumin 3.1 G/DL (3.4-5.0) L Globulin 4.8 g/dL Albumin/Globulin Ratio 0.6 (1.0-2.7) L Lactic Acid Level 1.10 mmol/L (0.4-2.0) Microbiology Date/Time Source Procedure Growth Status 08/03/19 18:00 Rectum Received Height (Feet): 5 Height (Inches): 11.00 Weight (Pounds): 170 Medications Current Medications Medications (Trade) Dose Ordered Sig/Breanna Route PRN Reason Start Time Stop Time Status Last Admin Dose Admin Allopurinol (Zyloprim) 100 mg DAILY ORAL 08/04/19 09:00 09/03/19 08:59 Aspirin (Ecotrin) 81 mg DAILY ORAL 08/04/19 09:00 09/03/19 08:59 Carvedilol (Coreg) 3.125 mg EVERY 12 HOURS ORAL 08/04/19 09:00 09/03/19 08:59 Docusate Sodium (Colace) 100 mg TWICE A DAY ORAL 08/04/19 09:00 09/03/19 08:59 Ferrous Sulfate (Feosol) 325 mg TWICE A DAY ORAL 08/04/19 09:00 09/03/19 08:59 Folic Acid (Folate) 1 mg DAILY ORAL 08/04/19 09:00 09/03/19 08:59 Heparin Sodium (Porcine) (Heparin 5000 units/ml) 5,000 units EVERY 12 HOURS SUBQ 08/04/19 09:00 09/03/19 08:59 Memantine (Namenda) 10 mg TWICE A DAY ORAL 08/04/19 09:00 09/03/19 08:59 Nateglinide (Starlix) 60 mg THREE TIMES A DAY ORAL 08/04/19 09:00 09/03/19 08:59 Pantoprazole (Protonix) 40 mg DAILY@0630 ORAL 08/04/19 06:30 09/03/19 06:29 Assessment/Plan Problem List: (1) Acute on chronic renal failure ICD Codes: N17.9 - Acute kidney failure, unspecified; N18.9 - Chronic kidney disease, unspecified SNOMED: 726756765 Qualifiers: Qualified Codes: N17.9 - Acute kidney failure, unspecified; N18.9 - Chronic kidney disease, unspecified (2) Elevated troponin ICD Codes: R79.89 - Other specified abnormal findings of blood chemistry SNOMED: 788141118, 801155576, 595613216 (3) Pleural effusion ICD Codes: J90 - Pleural effusion, not elsewhere classified SNOMED: 05351332 (4) HAP (hospital-acquired pneumonia) ICD Codes: J18.9 - Pneumonia, unspecified organism; Y95 - Nosocomial condition SNOMED: 034808531 (5) History of COPD ICD Codes: Z87.09 - Personal history of other diseases of the respiratory system SNOMED: 957297470 (6) Metabolic encephalopathy ICD Codes: G93.41 - Metabolic encephalopathy SNOMED: 72041034 (7) HTN (hypertension) ICD Codes: I10 - HTN (hypertension) SNOMED: 86021615 Assessment/Plan: Edy Dubon is a 84 yo man with PMH of IDDM (type II), CKD (creatinine ~1.6 baseline), HTN, HLD, COPD (not on home O2), CHF (unknown EF), dementia (AAOx1-2 at baseline), Afib (not on A/C), CAD, GERD, and iron deficiency anemia who presented from [facility] with acute on chronic renal failure, elevated troponin, leukocytosis. #Acute on chronic renal failure. Suspect prerenal. Do not suspect cardiorenal as patient is euvolemic on exam. Could have urinary retention. -Admit to telemetry -Appreciate nephrology consultation: Dr. [place] -Urine lytes, urine eosinophils -Bladder scan, PVR then insert Landis for strict I's and O's -Renal ultrasound -Avoid nephrotoxins -hold lasix #N STEMI, suspect type 2 due to demand ischemia -Continue to trend troponins until plateaued -Appreciate cardiology recommendations: Dr. Wiggins #leukocytosis. No other sirs critiera. But may have LLL pneumonia (hospital acquired) on CXR. -Obtain CT chest to further evaluate -Blood cultures x2 -Sputum culture -Vancomycin per pharmacy (08/04/19 - ) -Cefepime (08/04/19- ) -Flagyul (08/04/19 - #Systolic heart failure, compensated. New diagnosis Differential includes ischemic, versus tachycardia induced, versus cardiomyopathy #hx HTN, HLD #hx CHF (unknown EF) #hx Afib not on A/C #hx CAD -Appreciate cardiology recommendations: Dr. Wiggins -Monitor on telemetry -Lisinopril 10 mg p.o. daily -Aspirin 81 mg p.o. daily -Atorvastatin 40 mg p.o. nightly -Coreg 3.125 every 12 hours #Metabolic Encephalopathy #hx dementia (baseline AAOx1-2 and conversant) > EEG negative - Treatment for infections as per above - CT head without acute findings - Resume home memantine 10mg PO BID #hx GERD - Continue home protonix 40mg IV daily. Can change to PO once mental status improves #hx IDDM - Last A1C 6.8 from 05/[address] [facility] records - On lantus 23U qhs at SNF - levemir 5U qhs - SSI lispro QACHS and monitor FS #Iron def anemia - Resume home ferrous sulfate 325mg PO BID once infection treated FENPPX DVTPPX: heparin sbq GI PPX: protonix Fluids: per nephrology Diet: regular Lines: peripheral PT/OT: pending Code status: full Dispo: Back to snf Reason for Continued Hospitalization: Acute renal failure 72 minutes spent on this encounter. Discussed with RN, patient, cardiology, and nephrology . > 50% spent on counseling and care coordination. An adidtional 33 minutes spent reviewing medical records Time of note may not reflect time patient was seen. Esvin Cohen D.O. Aug 04, 2019 09:09
--- NOTE | 2019-08-04 09:40 | Consultation ---
Consult Note Consult Note asked to eval for renal failure by Dr Fisher Patient poor historian has history of dementia has no insight about his kidney status gets agitated during exam ER 84-year-old male presents ED for evaluation. Brought in by EMS from [facility] facility. Reportedly had abnormal labs. Noted to have elevated BUN and creatinine on labs done today. Patient states he feels fine. Denies any dizziness or weakness. Denies any history of dialysis. Denies chest pain or shortness of breath. No other aggravating relieving factors. Denies any other associated symptoms No Known Allergies (Unverified , 12/09/13) Past Medical History: DM, HTN, CHF, AFib, COPD, dementia Hx Cardiac Problems: Yes - heart failure a-fib Hx Hypertension: Yes Hx COPD: Yes Hx Diabetes: Yes Hx Neurological Problems: Yes Hx Dementia: Yes Hx Weakness: Yes Hx Fatigue: Yes Assessment/Plan Acute on chronic kidney disease, likely DM , HTN Kidney MILAGROS, no [place], but echogenic kidneys left lung pleural effusion vs Pneumonia elevated troponin CXR: Again seen is opacity within the mid to lower left lung which may represent pneumonia. Underlying mass is not excluded. Small bilateral pleural effusions. Plan: UA Echo MILAGROS kidney monitor renal parameters Flomax BS abd BP check Bill Redman MD Aug 04, 2019 09:40
[2019-08-04 10:27] LABS: HEMATOCRIT 35.3 % (42.0-52.0); HEMOGLOBIN 11.9 G/DL (14.2-18.0); MEAN CORPUSCULAR VOLUME 90 FL (80-99); PLATELET COUNT 195 K/UL (150-450); RED BLOOD COUNT 3.93 M/UL (4.70-6.10); RED CELL DISTRIBUTION WIDTH 12.7 % (11.6-14.8); WHITE BLOOD COUNT 16.9 K/UL (4.8-10.8)
[2019-08-04 10:30] LABS: ANION GAP 14 mmol/L (5-15); BLOOD UREA NITROGEN 65 mg/dL (7-18); CALCIUM 9.1 MG/DL (8.5-10.1); CARBON DIOXIDE 25 MMOL/L (21-32); CHLORIDE 110 MMOL/L (98-107); CREATININE 4.3 MG/DL (0.55-1.30); POTASSIUM 4.2 MMOL/L (3.5-5.1); SODIUM 148 MMOL/L (136-145)
[2019-08-04] MEDS: Memantine 10mg tab ORAL SCH ×2 (10:30→18:09)
[2019-08-04] MEDS: Nateglinide 60mg tab ORAL SCH ×3 (10:30→18:09)
[2019-08-04] MEDS: Allopurinol 100mg Tab ORAL SCH (10:30)
[2019-08-04] MEDS: Aspirin EC 81mg tab ORAL SCH (10:31)
[2019-08-04] MEDS: Heparin 5000 units/ml inj SUBQ SCH ×2 (10:32→21:00)
[2019-08-04] MEDS: Tamsulosin 0.4mg cap ORAL SCH ×2 (10:34→18:09)
[2019-08-04 10:40] LABS: ALANINE AMINOTRANSFERASE 15 U/L (12-78); ALKALINE PHOSPHATASE 110 U/L (46-116); ASPARTATE AMINO TRANSFERASE 19 U/L (15-37); BILIRUBIN,DIRECT 0.2 MG/DL (0.0-0.3); BILIRUBIN,TOTAL 0.7 MG/DL (0.2-1.0); CHOLESTEROL 83 MG/DL (< 200); CREATINE KINASE 48 U/L (26-308); HDL CHOLESTEROL 29 MG/DL (40-60); PHOSPHORUS 3.5 MG/DL (2.5-4.9); TRIGLYCERIDES 121 MG/DL (30-150)
[2019-08-04 12:00] VITALS: BP 154/105
--- NOTE | 2019-08-04 12:37 | Cardiology Report ---
APPROVED REPORT EKG Measurement Heart [id number] Sinus rhythm with occasional premature ventricular complexes Nonspecific T wave abnormality Prolonged QT Abnormal ECG
[2019-08-04] MEDS ORDERED: Cefepime HCl 2 GM in D5W 55 ML IVPB SCH (14:00)
[2019-08-04] MEDS: metroNIDAZOLE 500mg tab ORAL SCH ×2 (14:51→21:45)
[2019-08-04] MEDS: Docusate 100mg cap ORAL SCH ×2 (14:51→18:09)
[2019-08-04] MEDS: Cefepime 1gm/D5W 55ml IVPB SCH ×2 (14:58)
--- NOTE | 2019-08-04 15:15 | NUR ---
NURSE NOTES: no IV pole or IV pump. will give Cefepime as soon as this is avialable.
--- NOTE | 2019-08-04 15:23 | Cardiac Electrophysiology PN ---
Subjective Subjective [id number] Objective Last 24 Hour Vital Signs Date Time Temp Pulse Resp B/P (MAP) Pulse Ox O2 Delivery O2 Flow Rate FiO2 08/04/19 12:00 93 08/04/19 12:00 98.8 96 20 154/105 (121) 96 08/04/19 08:00 97.7 93 18 161/84 (109) 97 08/04/19 08:00 95 08/04/19 05:09 Room Air 08/04/19 04:00 65 08/04/19 04:00 98.9 75 18 150/76 (100) 97 08/04/19 00:00 76 08/04/19 00:00 98.3 74 18 163/79 (107) 98 08/03/19 20:35 98.8 78 18 156/76 99 Room Air 08/03/19 20:35 98.6 67 18 155/78 98 Room Air 08/03/19 19:38 98.8 78 18 156/76 99 Room Air 08/03/19 18:30 98.8 80 17 181/87 99 Room Air 08/03/19 17:38 98.8 81 17 181/87 (118) 99 Room Air Intake and Output 08/03/19 08/04/19 18:59 06:59 Output Total 350 ml 2800 ml Balance -350 ml -2800 ml Output Urine Total 350 ml 2800 ml # Bowel Movements 1 Laboratory Tests Test 08/03/19 18:00 08/03/19 19:30 08/04/19 01:10 08/04/19 09:25 White Blood Count 11.7 K/UL (4.8-10.8) H 16.9 K/UL (4.8-10.8) H Red Blood Count 4.43 M/UL (4.70-6.10) L 3.93 M/UL (4.70-6.10) L Hemoglobin 13.1 G/DL (14.2-18.0) L 11.9 G/DL (14.2-18.0) L Hematocrit 38.7 % (42.0-52.0) L 35.3 % (42.0-52.0) L Mean Corpuscular Volume 87 FL (80-99) 90 FL (80-99) Mean Corpuscular Hemoglobin 29.6 PG (27.0-31.0) 30.4 PG (27.0-31.0) Mean Corpuscular Hemoglobin Concent 34.0 G/DL (32.0-36.0) 33.8 G/DL (32.0-36.0) Red Cell Distribution Width 11.5 % (11.6-14.8) L 12.7 % (11.6-14.8) Platelet Count 175 K/UL (150-450) 195 K/UL (150-450) Mean Platelet Volume 5.9 FL (6.5-10.1) L 5.7 FL (6.5-10.1) L Neutrophils (%) (Auto) 79.9 % (45.0-75.0) H % (45.0-75.0) Lymphocytes (%) (Auto) 12.7 % (20.0-45.0) L % (20.0-45.0) Monocytes (%) (Auto) 3.5 % (1.0-10.0) % (1.0-10.0) Eosinophils (%) (Auto) 3.5 % (0.0-3.0) H % (0.0-3.0) Basophils (%) (Auto) 0.5 % (0.0-2.0) % (0.0-2.0) Sodium Level 145 MMOL/L (136-145) 148 MMOL/L (136-145) H Potassium Level 4.4 MMOL/L (3.5-5.1) 4.2 MMOL/L (3.5-5.1) Chloride Level 108 MMOL/L (98-107) H 110 MMOL/L (98-107) H Carbon Dioxide Level 26 MMOL/L (21-32) 25 MMOL/L (21-32) Anion Gap 11 mmol/L (5-15) 14 mmol/L (5-15) Blood Urea Nitrogen 65 mg/dL (7-18) H 65 mg/dL (7-18) H Creatinine 4.5 MG/DL (0.55-1.30) H 4.3 MG/DL (0.55-1.30) H Estimat Glomerular Filtration Rate mL/min (>60) mL/min (>60) Glucose Level 129 MG/DL (74-106) H 205 MG/DL (74-106) H Calcium Level 9.2 MG/DL (8.5-10.1) 9.1 MG/DL (8.5-10.1) Total Bilirubin 0.6 MG/DL (0.2-1.0) 0.7 MG/DL (0.2-1.0) Aspartate Amino Transf (AST/SGOT) 20 U/L (15-37) 19 U/L (15-37) Alanine Aminotransferase (ALT/SGPT) 14 U/L (12-78) 15 U/L (12-78) Alkaline Phosphatase 128 U/L (46-116) H 110 U/L (46-116) Troponin I 0.109 ng/mL (0.000-0.056) 0.131 ng/mL (0.000-0.056) 0.169 ng/mL (0.000-0.056) Pro-B-Type Natriuretic Peptide 8749 pg/mL (0-125) H Total Protein 7.9 G/DL (6.4-8.2) 7.5 G/DL (6.4-8.2) Albumin 3.1 G/DL (3.4-5.0) L 3.0 G/DL (3.4-5.0) L Globulin 4.8 g/dL Albumin/Globulin Ratio 0.6 (1.0-2.7) L Lactic Acid Level 1.10 mmol/L (0.4-2.0) Differential Total Cells Counted 100 Neutrophils % (Manual) 92 % (45-75) H Lymphocytes % (Manual) 3 % (20-45) L Monocytes % (Manual) 5 % (1-10) Eosinophils % (Manual) 0 % (0-3) Basophils % (Manual) 0 % (0-2) Band Neutrophils 0 % (0-8) Platelet Estimate Adequate Platelet Morphology Normal Red Blood Cell Morphology Normal Hemoglobin A1c 6.5 % (4.3-6.0) H Uric Acid 6.1 MG/DL (2.6-7.2) Phosphorus Level 3.5 MG/DL (2.5-4.9) Magnesium Level 1.7 MG/DL (1.8-2.4) L Direct Bilirubin 0.2 MG/DL (0.0-0.3) Total Creatine Kinase 48 U/L (26-308) Triglycerides Level 121 MG/DL (30-150) Cholesterol Level 83 MG/DL (< 200) LDL Cholesterol 43 mg/dL (<100) HDL Cholesterol 29 MG/DL (40-60) L Cholesterol/HDL Ratio 2.9 (3.3-4.4) L Thyroid Stimulating Hormone (TSH) 5.006 uiU/mL (0.358-3.740) Test 08/04/19 15:15 Troponin I Pending Microbiology Date/Time Source Procedure Growth Status 08/03/19 18:00 Rectum Received Sixto Wiggins MD Aug 04, 2019 15:23
[2019-08-04 16:00] VITALS: BP 129/69
[2019-08-04] MEDS ORDERED: Vancomycin 1.25gm/NS Premix 275 ML IVPB ONE (16:00)
[2019-08-04 20:00] VITALS: BP 130/61
--- NOTE | 2019-08-04 21:00 | Consultation ---
DATE OF CONSULTATION: 08/04/2019 CARDIOLOGY CONSULTATION CONSULTING PHYSICIAN: Sixto Wiggins M.D. REFERRING PHYSICIAN: iMguelangel Frederick M.D. REASON FOR REFERRAL: Management of hypertension and atrial fibrillation in the patient with history of coronary artery bypass graft. HISTORY OF PRESENT ILLNESS: The patient is an 84-year-old gentleman with history of hypertension, paroxysmal atrial fibrillation, diabetes, congestive heart failure, as well as history of coronary bypass graft, who was brought in by paramedics from [facility] for abnormal laboratories. The patient was noted to have abnormal elevated BUN and creatinine. The patient denies any chest pain or palpitation or shortness of breath or syncope or presyncopal symptoms. The patient was admitted and a Cardiology consultation was obtained for further evaluation. REVIEW OF SYSTEMS: Review of systems was negative other than what is mentioned in the history of present illness. PAST MEDICAL HISTORY: As mentioned above. FAMILY HISTORY: Noncontributory. SOCIAL HISTORY: [facility] lives [facility]. Does not smoke or drink alcohol. PHYSICAL EXAMINATION: VITAL SIGNS: Blood pressure 154/105, pulse 96, respirations 20, and temperature 98.8. HEAD AND NECK: Showed no JVD. LUNGS: Clear. CARDIOVASCULAR: Shows regular S1 and S2 with no gallop. Sternotomy scar is intact. ABDOMEN: Soft. EXTREMITIES: No pitting edema. LABORATORY AND DIAGNOSTIC DATA: His labs show white count of 17, hemoglobin of 11.9, hematocrit of 35.3, and platelet count is 195,000. Sodium is , potassium 4.2, BUN of 65, creatinine 4.3, and glucose of 205. Troponin 0.131 and 1.169. ASSESSMENT AND PLAN: 1. Elevated troponin. The levels are low and flat. The patient does not have any chest pain. This is likely due to the patient's renal failure as his creatinine is 4.3. His EKG does not show any acute ischemic changes. In the meantime, continue the patient on aspirin and beta-roseanna. 2. History of coronary bypass graft. 3. Ischemic cardiomyopathy with ejection fraction of 40%. Continue aspirin and Coreg. Avoid BRANDT inhibitor or angiotensin-receptor blockers in view of renal failure. 4. Paroxysmal atrial fibrillation, currently in sinus rhythm and was in sinus rhythm on previous admission. On aspirin and Coreg. 5. Renal failure. 6. Chronic obstructive pulmonary disease. 7. Dementia. Thank you very much for allowing me to participate in the care of this patient. Please do not hesitate to contact me for any questions regarding my evaluation. Sixto Wiggins M.D. DR: EDGAR JOB#: [id number] CC:
--- NOTE | 2019-08-04 21:17 | NUR ---
HAND-OFF: Report given to Sadie/RN.
[2019-08-04] MEDS: Carvedilol 6.25mg Tab ORAL SCH (21:45)
[2019-08-05] VITALS: BP 140/61
[2019-08-05 04:00] VITALS: BP 139/83
[2019-08-05] MEDS: metroNIDAZOLE 500mg tab ORAL SCH ×4 (06:00→21:46)
--- NOTE | 2019-08-05 06:59 | NUR ---
HAND-OFF: Report given to NURSE PATEL.PT.DENIES PAIN OR SOB.
--- NOTE | 2019-08-05 07:59 | NUR ---
NURSE NOTES: pt is in bed sleeping will help feed pt when he wakes up. Pt is on restrains. 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 pt has a sommers and is patent. Call light within reach, bed locked and in lowest position. Will continue to monitor pt and lab values.
[2019-08-05 08:00] VITALS: BP 139/64
[2019-08-05 08:59] LABS: ANION GAP 10 mmol/L (5-15); BASOPHILS % (AUTO) 0.9 % (0.0-2.0); BLOOD UREA NITROGEN 59 mg/dL (7-18); CALCIUM 9.1 MG/DL (8.5-10.1); CARBON DIOXIDE 25 MMOL/L (21-32); CHLORIDE 111 MMOL/L (98-107); EOSINOPHILS % (AUTO) 2.4 % (0.0-3.0); HEMATOCRIT 32.5 % (42.0-52.0); HEMOGLOBIN 11.1 G/DL (14.2-18.0); LYMPHOCYTES % (AUTO) 8.7 % (20.0-45.0); MEAN CORPUSCULAR VOLUME 88 FL (80-99); MONOCYTES % (AUTO) 5.8 % (1.0-10.0); NEUTROPHILS % (AUTO) 82.4 % (45.0-75.0); PLATELET COUNT 137 K/UL (150-450); POTASSIUM 3.7 MMOL/L (3.5-5.1); RED BLOOD COUNT 3.69 M/UL (4.70-6.10); RED CELL DISTRIBUTION WIDTH 11.5 % (11.6-14.8); SODIUM 146 MMOL/L (136-145); WHITE BLOOD COUNT 11.1 K/UL (4.8-10.8)
[2019-08-05] MEDS: Heparin 5000 units/ml inj SUBQ SCH ×2 (09:00→21:00)
[2019-08-05] MEDS ORDERED: LORazepam Inj 2mg/ml 1ml IV ONE (09:15)
[2019-08-05] MEDS: Tamsulosin 0.4mg cap ORAL SCH ×2 (09:51→18:39)
[2019-08-05] MEDS: Memantine 10mg tab ORAL SCH ×2 (09:51→18:00)
[2019-08-05] MEDS: Docusate 100mg cap ORAL SCH ×3 (09:51→18:38)
[2019-08-05] MEDS: Aspirin EC 81mg tab ORAL SCH (09:52)
[2019-08-05] MEDS: Allopurinol 100mg Tab ORAL SCH (09:52)
[2019-08-05] MEDS: Nateglinide 60mg tab ORAL SCH ×3 (09:52→18:39)
[2019-08-05] MEDS: Carvedilol 6.25mg Tab ORAL SCH ×2 (09:52→21:28)
--- NOTE | 2019-08-05 10:35 | NUR ---
NURSE NOTES: Notified both doctor Gina and Doctor Phillip about high troponin level from this morning. No new orders received
[2019-08-05] MEDS ORDERED: Vancomycin 1gm/D5W 275ml IVPB ONE ×2 (11:00)
--- NOTE | 2019-08-05 11:20 | NUR ---
NURSE NOTES: pt has been very sleepy for most of the day. He is still arouses to stimuli but goes back to sleep right away.
--- NOTE | 2019-08-05 11:34 | Diagnostic Imaging Report ---
RENAL ULTRASOUND - COMPLETE INDICATION: KELLEN. TECHNIQUE: Multiplanar ultrasound examination of the retroperitoneum with greyscale and doppler imaging. COMPARISON: None FINDINGS: Right kidney: Right kidney measures 10.3 cm. Echogenicity is increased. No hydronephrosis or nephrolithiasis. No masses identified sonographically. Left kidney: Left kidney measures 11.8 cm. Echogenicity is increased. There is an exophytic cyst measuring up to 3.8 cm. No hydronephrosis. No nephrolithiasis. Bladder: Decompressed with Landis catheter, limiting evaluation. IMPRESSION: Increased echogenicity of the kidneys, which can be seen with medical renal disease.
[2019-08-05 12:00] VITALS: BP 143/60
--- NOTE | 2019-08-05 13:37 | General Progress Note ---
Assessment/Plan Problem List: (1) Acute on chronic renal failure ICD Codes: N17.9 - Acute kidney failure, unspecified; N18.9 - Chronic kidney disease, unspecified SNOMED: 920837364 Qualifiers: Qualified Codes: N17.9 - Acute kidney failure, unspecified; N18.9 - Chronic kidney disease, unspecified (2) Elevated troponin ICD Codes: R79.89 - Other specified abnormal findings of blood chemistry SNOMED: 702267890, 309519204, 411473076 (3) Pleural effusion ICD Codes: J90 - Pleural effusion, not elsewhere classified SNOMED: 33638802 (4) HAP (hospital-acquired pneumonia) ICD Codes: J18.9 - Pneumonia, unspecified organism; Y95 - Nosocomial condition SNOMED: 234091036 (5) History of COPD ICD Codes: Z87.09 - Personal history of other diseases of the respiratory system SNOMED: 780157164 (6) Metabolic encephalopathy ICD Codes: G93.41 - Metabolic encephalopathy SNOMED: 59828932 (7) HTN (hypertension) ICD Codes: I10 - HTN (hypertension) SNOMED: 73127811 Assessment/Plan: Edy Dubon is a 84 yo man with PMH of IDDM (type II), CKD (creatinine ~1.6 baseline), HTN, HLD, COPD (not on home O2), CHF (unknown EF), dementia (AAOx1-2 at baseline), Afib (not on A/C), CAD, GERD, and iron deficiency anemia who presented from [facility] with acute on chronic renal failure, NSTEMI type 2 , Sepsis #Acute on chronic renal failure. Suspect prerenal. Do not suspect cardiorenal as patient is euvolemic on exam. Could have urinary retention but bladder scan not performed prior to insertion of sommers. Slowly improving. -Admit to telemetry -Appreciate nephrology consultation: Dr. Birmingham -Urine lytes, urine eosinophils -Bladder scan, PVR then insert Sommers for strict I's and O's -Renal ultrasound -Avoid nephrotoxins -hold lasix -Gentle normal saline IV 500 cc over 5 hours x 1 today. #NSTEMI, suspect type 2 due to demand ischemia -Continue to trend troponins until plateaued. Continues to uptrend. Denies any chest pain. -Appreciate cardiology recommendations: Dr. Wiggins #Sepsis (Leukocytosis, AMS). 2/2 possible HCAP. -Obtain CT chest to further evaluate Left lung mass -Blood cultures x2 - negative to date -Sputum culture, induced -Vancomycin per pharmacy (08/04/19 - ) -Cefepime (08/04/19- ) -Flagyl (08/04/19 - ) - De-escalate pending cultures #Systolic heart failure, compensated. EF 40-45% Differential includes ischemic, versus tachycardia induced, versus cardiomyopathy #hx HTN, HLD #hx Afib not on A/C #hx CAD -Appreciate cardiology recommendations: Dr. Wiggins -Monitor on telemetry -Lisinopril 10 mg p.o. daily -Aspirin 81 mg p.o. daily -Atorvastatin 40 mg p.o. nightly -Coreg 3.125 every 12 hours #Metabolic Encephalopathy #hx dementia (baseline AAOx1-2 and conversant) > EEG negative - Treatment for infections as per above - CT head without acute findings - Resume home memantine 10mg PO BID #hx GERD - Continue home protonix 40mg IV daily. Can change to PO once mental status improves #hx IDDM - Last A1C 6.8 from 05/2019 [facility] records - On lantus 23U qhs at SNF - levemir 5U qhs - SSI lispro QACHS and monitor FS #Iron def anemia - Resume home ferrous sulfate 325mg PO BID once infection treated FENPPX DVTPPX: heparin sbq GI PPX: protonix Fluids: 500 cc bolus today Diet: regular Lines: peripheral PT/OT: pending Code status: full Dispo: Back to snf Reason for Continued Hospitalization: Acute renal failure 38 minutes spent on this encounter. Discussed with RN, patient, cardiology, and nephrology . > 50% spent on counseling and care coordination. Time of note may not reflect time patient was seen. Subjective Date patient seen: Aug 05, 2019 Constitutional: Denies: chills, diaphoresis, fever, malaise, weakness, other HEENT: Denies: eye pain, blurred vision, tearing, double vision, ear pain, ear discharge, nose pain, nose congestion, throat pain, throat swelling, mouth pain , mouth swelling, other Cardiovascular: Denies: chest pain, edema, irregular heart rate, lightheadedness, palpitations, syncope, other Respiratory: Denies: cough, orthopnea, shortness of breath, SOB with excertion , SOB at rest, sputum, stridor, wheezing, other Gastrointestinal/Abdominal: Denies: abdomen distended, abdominal pain, black stools, tarry stools, blood in stool, constipated, diarrhea, difficulty swallowing, nausea, poor appetite, poor fluid intake, rectal bleeding, vomiting , other Genitourinary: Denies: burning, discharge, frequency, flank pain, hematuria, incontinence, pain, urgency, other Neurologic/Psychiatric: Denies: anxiety, depressed, emotional problems, headache, numbness, paresthesia, pre-existing deficit, seizure, tingling, tremors, weakness, other Endocrine: Denies: excessive sweating, flushing, intolerance to cold, intolerance to heat, increased hunger, increased thirst, increased urine, unexplained weight gain, unexplained weight loss, other Hematologic/Lymphatic: Denies: anemia, easy bleeding, easy bruising, other Allergies: Coded Allergies: No Known Allergies (Unverified , 12/09/13) Subjective No acute events overnight per nursing. Patient feels much better today. He continues to deny any complaints. Denies any chest pain shortness of breath cough fever or chills. He has good urine output. Is sleepy today but arousable. Objective Last 24 Hour Vital Signs Date Time Temp Pulse Resp B/P (MAP) Pulse Ox O2 Delivery O2 Flow Rate FiO2 08/05/19 09:52 75 139/83 08/05/19 04:00 75 08/05/19 04:00 97.5 83 18 139/83 (101) 95 08/05/19 00:00 98.0 83 18 140/61 (87) 95 08/05/19 00:00 75 08/04/19 21:45 72 130/61 08/04/19 21:00 Room Air 08/04/19 20:00 98.8 83 18 130/61 (84) 95 08/04/19 16:07 75 08/04/19 16:00 97.8 83 18 129/69 (89) 95 Intake and Output 08/04/19 08/05/19 19:00 07:00 Intake Total 690 ml 120 ml Output Total 2900 ml 400 ml Balance -2210 ml -280 ml Intake Oral 690 ml 120 ml Output Urine Total 2900 ml 400 ml Laboratory Tests 08/04/19 15:15: Troponin I 0.414H 08/04/19 19:00: Troponin I 0.589H 08/05/19 07:35: Troponin I 0.616H, White Blood Count 11.1H, Red Blood Count 3.69L, Hemoglobin 11.1L, Hematocrit 32.5L, Mean Corpuscular Volume 88, Mean Corpuscular Hemoglobin 30.0, Mean Corpuscular Hemoglobin Concent 34.1, Red Cell Distribution Width 11.5L, Platelet Count 137L, Mean Platelet Volume 6.1L, Neutrophils (%) (Auto) 82.4H, Lymphocytes (%) (Auto) 8.7L, Monocytes (%) (Auto) 5.8, Eosinophils (%) (Auto) 2.4, Basophils (%) (Auto) 0.9, Sodium Level 146H, Potassium Level 3.7, Chloride Level 111H, Carbon Dioxide Level 25, Anion Gap 10 , Blood Urea Nitrogen 59H, Creatinine 4.0H, Estimat Glomerular Filtration Rate , Glucose Level 132H, Calcium Level 9.1, Random Vancomycin Level 12.0 08/05/19 11:00: Urine Eosinophils None seen, Urine Random Sodium 81, Urine Creatinine 59.9 Height (Feet): 5 Height (Inches): 11.00 Weight (Pounds): 170 General Appearance: WD/WN, no apparent distress, alert, confused EENT: PERRL/EOMI, normal ENT inspection Neck: non-tender, normal alignment, supple Cardiovascular: normal peripheral pulses, normal rate, regular rhythm, no JVD Respiratory/Chest: chest wall non-tender, lungs clear, normal breath sounds Abdomen: normal bowel sounds, non tender, soft, no organomegaly, no mass Extremities: normal range of motion, non-tender, normal inspection Edema: other - No lower extremity edema bilaterally 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 Aug 05, 2019 13:37
--- NOTE | 2019-08-05 13:38 | Diagnostic Imaging Report ---
Indication: Chest pain Technique: Continuous helical transaxial imaging of the chest was obtained from the thoracic inlet to the upper abdomen. No intravenous contrast was administered. Coronal 2-D reformats were also obtained. Total Dose length Product (DLP): [address] Dose Index Volume (CTDIvol): 14.7 mGy Comparison: none Findings: There is a small loculated effusion at the left lung base. The adjacent consolidation demonstrated as well as some volume loss indicative of atelectasis. The heart is enlarged. There is coronary and the aorta calcification present. Dense pleural calcification also demonstrated on the right side in various locations. Nature of this is unknown. There is some adjacent parenchymal scar formation. Sternotomy is noted. The esophagus is diffusely dilated, mild in degree. Consider achalasia. Visualized part of the upper abdomen demonstrates a probable cyst in the left kidney 3 cm only partially seen. There is breathing motion artifact present. IMPRESSION: Left basilar consolidation and atelectasis with a small loculated appearing pleural effusion. Correlate clinically for pneumonia. Atherosclerotic vascular disease. Pleural plaques and calcification on the right nonspecific. This could be related to asbestos. Dilatation of the esophagus noted diffusely. Consider achalasia. Partially imaged left renal hypodensity measuring 3 cm on this examination. This could be cystic but does not adequately evaluated. [facility] has communicated the preliminary results to the Emergency Department. Their findings are largely concordant with this report. The CT scanner at [facility] is accredited by the [employer] and the scans are performed using dose optimization techniques as appropriate to a performed exam including Automatic Exposure control.
--- NOTE | 2019-08-05 13:56 | Nephrology Progress Note ---
Assessment/Plan Problem List: (1) Acute on chronic renal failure (2) HTN (hypertension) (3) Pleural effusion (4) Diabetes Assessment Acute on chronic kidney disease, likely DM , HTN Kidney MILAGROS, no Campbell, but echogenic kidneys left lung pleural effusion vs Pneumonia elevated troponin Plan UA Echo MILAGROS kidney monitor renal parameters Flomax BS abd BP check CXR: Again seen is opacity within the mid to lower left lung which may represent pneumonia. Underlying mass is not excluded. Small bilateral pleural effusions. Subjective ROS Limited/Unobtainable: No Constitutional: Reports: malaise Objective Objective Last 24 Hour Vital Signs Date Time Temp Pulse Resp B/P (MAP) Pulse Ox O2 Delivery O2 Flow Rate FiO2 08/05/19 09:52 75 139/83 08/05/19 04:00 75 08/05/19 04:00 97.5 83 18 139/83 (101) 95 08/05/19 00:00 98.0 83 18 140/61 (87) 95 08/05/19 00:00 75 08/04/19 21:45 72 130/61 08/04/19 21:00 Room Air 08/04/19 20:00 98.8 83 18 130/61 (84) 95 08/04/19 16:07 75 08/04/19 16:00 97.8 83 18 129/69 (89) 95 Intake and Output 08/04/19 08/05/19 19:00 07:00 Intake Total 690 ml 120 ml Output Total 2900 ml 400 ml Balance -2210 ml -280 ml Intake Oral 690 ml 120 ml Output Urine Total 2900 ml 400 ml Laboratory Tests 08/04/19 15:15: Troponin I 0.414H 08/04/19 19:00: Troponin I 0.589H 08/05/19 07:35: Troponin I 0.616H, White Blood Count 11.1H, Red Blood Count 3.69L, Hemoglobin 11.1L, Hematocrit 32.5L, Mean Corpuscular Volume 88, Mean Corpuscular Hemoglobin 30.0, Mean Corpuscular Hemoglobin Concent 34.1, Red Cell Distribution Width 11.5L, Platelet Count 137L, Mean Platelet Volume 6.1L, Neutrophils (%) (Auto) 82.4H, Lymphocytes (%) (Auto) 8.7L, Monocytes (%) (Auto) 5.8, Eosinophils (%) (Auto) 2.4, Basophils (%) (Auto) 0.9, Sodium Level 146H, Potassium Level 3.7, Chloride Level 111H, Carbon Dioxide Level 25, Anion Gap 10 , Blood Urea Nitrogen 59H, Creatinine 4.0H, Estimat Glomerular Filtration Rate , Glucose Level 132H, Calcium Level 9.1, Random Vancomycin Level 12.0 08/05/19 11:00: Urine Eosinophils None seen, Urine Random Sodium 81, Urine Creatinine 59.9 Height (Feet): 5 Height (Inches): 11.00 Weight (Pounds): 170 General Appearance: no apparent distress Cardiovascular: normal rate Respiratory/Chest: decreased breath sounds Abdomen: distended Objective no change Bill Redman MD Aug 05, 2019 13:56
--- NOTE | 2019-08-05 14:05 | NUR ---
NURSE NOTES: pt too sleepy to swallow meds. will try to give them later when he wakes up.
[2019-08-05 16:00] VITALS: BP 114/57
--- NOTE | 2019-08-05 16:30 | NUR ---
NURSE NOTES: per doctor Gina, cancel all future troponin labs. pt does is not complaining of any chest pain.
--- NOTE | 2019-08-05 17:42 | Cardiac Electrophysiology PN ---
Assessment/Plan Assessment/Plan 1. Ischemic cardiomyopathy, ejection fraction of 40 to 45%, On Coreg and lisinopril 2. Tropoin leak and history of CABG on aspirin, Lipitor and Coreg. No CP. Medical therapy 3. Paroxysmal atrial fibrillation, currently in sinus rhythm, first-degree AV block. Is off anticoagulation and was off even at the [facility] 4. Hyperlipidemia on Lipitor. 5. Urinary tract infection. 6. Hospital-acquired pneumonia. DARON RN Subjective Subjective Comfortable in NAD. No CP or SOB Objective Last 24 Hour Vital Signs Date Time Temp Pulse Resp B/P (MAP) Pulse Ox O2 Delivery O2 Flow Rate FiO2 08/05/19 16:00 68 08/05/19 12:00 97.3 60 18 143/60 (87) 97 08/05/19 12:00 55 08/05/19 09:52 75 139/83 08/05/19 09:00 Room Air 08/05/19 08:00 97.5 63 20 139/64 (89) 98 08/05/19 08:00 60 08/05/19 04:00 75 08/05/19 04:00 97.5 83 18 139/83 (101) 95 08/05/19 00:00 98.0 83 18 140/61 (87) 95 08/05/19 00:00 75 08/04/19 21:45 72 130/61 08/04/19 21:00 Room Air 08/04/19 20:00 98.8 83 18 130/61 (84) 95 Intake and Output 08/04/19 08/05/19 18:59 06:59 Intake Total 690 ml 120 ml Output Total 2900 ml 400 ml Balance -2210 ml -280 ml Intake Oral 690 ml 120 ml Output Urine Total 2900 ml 400 ml Laboratory Tests Test 08/04/19 19:00 08/05/19 07:35 08/05/19 11:00 Troponin I 0.589 ng/mL (0.000-0.056) 0.616 ng/mL (0.000-0.056) White Blood Count 11.1 K/UL (4.8-10.8) H Red Blood Count 3.69 M/UL (4.70-6.10) L Hemoglobin 11.1 G/DL (14.2-18.0) L Hematocrit 32.5 % (42.0-52.0) L Mean Corpuscular Volume 88 FL (80-99) Mean Corpuscular Hemoglobin 30.0 PG (27.0-31.0) Mean Corpuscular Hemoglobin Concent 34.1 G/DL (32.0-36.0) Red Cell Distribution Width 11.5 % (11.6-14.8) L Platelet Count 137 K/UL (150-450) L Mean Platelet Volume 6.1 FL (6.5-10.1) L Neutrophils (%) (Auto) 82.4 % (45.0-75.0) H Lymphocytes (%) (Auto) 8.7 % (20.0-45.0) L Monocytes (%) (Auto) 5.8 % (1.0-10.0) Eosinophils (%) (Auto) 2.4 % (0.0-3.0) Basophils (%) (Auto) 0.9 % (0.0-2.0) Sodium Level 146 MMOL/L (136-145) H Potassium Level 3.7 MMOL/L (3.5-5.1) Chloride Level 111 MMOL/L (98-107) H Carbon Dioxide Level 25 MMOL/L (21-32) Anion Gap 10 mmol/L (5-15) Blood Urea Nitrogen 59 mg/dL (7-18) H Creatinine 4.0 MG/DL (0.55-1.30) H Estimat Glomerular Filtration Rate mL/min (>60) Glucose Level 132 MG/DL (74-106) H Calcium Level 9.1 MG/DL (8.5-10.1) Random Vancomycin Level 12.0 ug/mL Urine Eosinophils None seen (NONE SEEN) Urine Random Sodium 81 mmol/L (20-110) Urine Creatinine 59.9 MG/DL (30.0-125.0) Microbiology Date/Time Source Procedure Growth Status 08/03/19 19:15 Blood Blood Culture - Preliminary NO GROWTH AFTER 24 HOURS Resulted 08/03/19 19:00 Blood Blood Culture - Preliminary NO GROWTH AFTER 24 HOURS Resulted 08/03/19 18:00 Rectum VRE Culture - Final Enterococcus Faecium - Vre Complete Objective HEAD AND NECK: No JVD or carotid bruits. LUNGS: Clear. CARDIOVASCULAR: Regular S1 and S2 with no gallop or murmur. Sternotomy intact ABDOMEN: Soft and nontender. EXTREMITIES: No pitting edema. Sixto Wiggins MD Aug 05, 2019 17:42
[2019-08-05] MEDS: Cefepime 1gm/D5W 55ml IVPB SCH ×2 (18:37)
--- NOTE | 2019-08-05 18:50 | NUR ---
CASE MANAGEMENT: INITIAL REVIEW 84 YO M ELIZABETH FROM [facility] CC: ABNORMAL LABS PMHx: DM, HTN, CHF, AFib, COPD, dementia SI:RENAL FAILURE T 98.8 HR 81 RR 17 B/P 181/87 SATS 99% ON RA WBC 11.7 NA 148 CL 110 BUN 65 CR GLU 205 HA1C 6.5 MG 1.7 TROPONIN 0.414 IS: NS BOLUS X1 LEVAQUIN IV X1 CXR IMPRESSION: 1. Again seen is opacity within the mid to lower left lung which may represent pneumonia. Underlying mass is not excluded.2. Small bilateral pleural effusions. PATIENT ADMITTED TO TELE 08/03/2019 @ 2009 DCP: PATIENT TO BE DISCHARGED TO SNF ONCE MEDICALLY CLEARED. Addendum: 08/05/19 at 2102 by Iona Lozada CM INTERDIYAAL
--- NOTE | 2019-08-05 19:39 | NUR ---
HAND-OFF: Report given to Aleena/RN, pt awake and in stable condition.
[2019-08-05 20:00] VITALS: BP 143/66
--- NOTE | 2019-08-05 20:11 | NUR ---
NURSE NOTES: RECEIVED PATIENT ASLEEP, AROUSABLE. FALL AND ASPIRATION PRECAUTIONS IN PLACE: CALL LIGHT AND BEDSIDE TABLE WITHIN REACH, BED IN LOW POSITION AND BED ALARM ON ZONE 2. WILL CONTINUE WITH PLAN OF CARE.
[2019-08-05] MEDS: Atorvastatin 20mg tab ORAL SCH ×2 (21:28→21:30)
[2019-08-06] VITALS: BP 133/70
[2019-08-06 04:00] VITALS: BP 110/46
[2019-08-06] MEDS: metroNIDAZOLE 500mg tab ORAL SCH ×3 (05:25→21:49)
--- NOTE | 2019-08-06 07:30 | NUR ---
NURSE NOTES: Received report from DENAE Flood. The patient is sleeping on the bed without acute distress or shortness of breath. The patient's bed in the lowest position, call light in reach, and fall and aspiration precaution reinforced. IV site intact and patent. Landis intact and draining well. Will continue plan of care.
--- NOTE | 2019-08-06 07:39 | NUR ---
HAND-OFF: Report given to Yasmany PRETTY RN. PATIENT ASLEEP, NO SIGNS OF DISTRESS NOTED.
[2019-08-06 08:00] VITALS: BP 103/49
[2019-08-06 08:34] LABS: BASOPHILS % (AUTO) 1.1 % (0.0-2.0); HEMATOCRIT 30.5 % (42.0-52.0); HEMOGLOBIN 10.2 G/DL (14.2-18.0); LYMPHOCYTES % (AUTO) 11.5 % (20.0-45.0); MEAN CORPUSCULAR VOLUME 89 FL (80-99); MONOCYTES % (AUTO) 5.2 % (1.0-10.0); NEUTROPHILS % (AUTO) 78.2 % (45.0-75.0); PLATELET COUNT 128 K/UL (150-450); RED BLOOD COUNT 3.43 M/UL (4.70-6.10); WHITE BLOOD COUNT 9.4 K/UL (4.8-10.8)
[2019-08-06] MEDS: Heparin 5000 units/ml inj SUBQ SCH ×2 (09:00→21:00)
[2019-08-06] MEDS: Carvedilol 6.25mg Tab ORAL SCH (09:00)
[2019-08-06 09:01] LABS: ALANINE AMINOTRANSFERASE 14 U/L (12-78); ALBUMIN 2.5 G/DL (3.4-5.0); ALBUMIN/GLOBULIN RATIO 0.7 (1.0-2.7); ALKALINE PHOSPHATASE 83 U/L (46-116); ANION GAP 8 mmol/L (5-15); ASPARTATE AMINO TRANSFERASE 22 U/L (15-37); BILIRUBIN,TOTAL 0.7 MG/DL (0.2-1.0); BLOOD UREA NITROGEN 57 mg/dL (7-18); CALCIUM 8.9 MG/DL (8.5-10.1); CARBON DIOXIDE 27 MMOL/L (21-32); CHLORIDE 113 MMOL/L (98-107); CREATININE 3.8 MG/DL (0.55-1.30); POTASSIUM 3.7 MMOL/L (3.5-5.1); SODIUM 148 MMOL/L (136-145)
[2019-08-06] MEDS: Docusate 100mg cap ORAL SCH ×3 (09:15→17:25)
[2019-08-06] MEDS: Tamsulosin 0.4mg cap ORAL SCH ×2 (09:15→17:25)
[2019-08-06] MEDS: Aspirin EC 81mg tab ORAL SCH (09:15)
[2019-08-06] MEDS: Memantine 10mg tab ORAL SCH ×2 (09:16→17:25)
[2019-08-06] MEDS: Allopurinol 100mg Tab ORAL SCH (09:16)
[2019-08-06] MEDS: Nateglinide 60mg tab ORAL SCH ×3 (09:16→17:25)
--- NOTE | 2019-08-06 09:30 | NUR ---
NURSE NOTES: Dr. Davila at the bedside assessed the patient. The patient is stable without acute distress or shortness of breath. Notified Dr. Davila, Dr. Wiggins, and regarding abnormal labs including platelet, BUN, Cr, Mg, and Troponin level. Dr. Wiggins ordred stat Troponin and notified the result to Dr. Wiggins. Per Dr. Wiggins, no troponin repeat anymore. Will continue plan of care.
--- NOTE | 2019-08-06 09:45 | NUR ---
*-* NO INSURANCE INFORMATION IN THE BAR UNABLE TO SEND CLINICALS OR REVIEWS *-*
--- NOTE | 2019-08-06 10:59 | NUR ---
*-* INSURANCE *-* ALL CLINICALS AND REVIEWS HAVE BEEN FAXED TO: TANISHA Odonnell Ref#[id number]
--- NOTE | 2019-08-06 11:16 | NUR ---
CASE MANAGEMENT: REVIEW 08/06/19 SI:RENAL FAILURE; ELEVATED TROP, PLEURAL EFFUSION 97.9 50 18 103/49 100% ON RA H/H 10.2/ 30.5; K+ 148; BUN 57; CREAT 3.8; MG 1.7 TROP 0.616-0.207 IS: IV CEFEPIME Q24HR FLAGYL PO Q8HR PROTONIX PO QD LIPITOR PO HS COREG PO Q12HR FOLATE PO QD STARLIX PO TID FLOMAX PO BID COLACE PO TID ALLOPURINOL PO QD NAMENDA PO BID ASPIRIN PO QD : 2E TELE UNIT DCP: TO [facility] ONCE MEDICALLY CLEARED
[2019-08-06 12:00] VITALS: BP 116/52
--- NOTE | 2019-08-06 12:00 | NUR ---
NURSE NOTES: Notified Dr. Redman regarding elevated BUN and Creatinine, low magnesium, and elevated Troponin. Also, notified Dr. Redman regarding low urine output and relatively low blood pressure. Per Dr. Redman, no new order but monitoring. The patient is stable without acute distress or shortness of breath. Will continue plan of care.
--- NOTE | 2019-08-06 12:04 | NUR ---
NURSE NOTES: The patient is stable without acute distress or shortness of breath. Will continue plan of care.
--- NOTE | 2019-08-06 13:26 | Cardiac Electrophysiology PN ---
Assessment/Plan Assessment/Plan 1. Ischemic cardiomyopathy, EF 40 to 45%, On Coreg and lisinopril 2. Tropoin leak and history of CABG on aspirin, Lipitor and Coreg. No CP. 3. Paroxysmal atrial fibrillation, remained in sinus rhythm, first-degree AV block. Off anticoagulation and was off even at the [facility] 4. Hyperlipidemia on Lipitor. 5. Urinary tract infection. 6. Hospital-acquired pneumonia. DARON RN Subjective Subjective Comfortable in NAD. No CP or SOB. Troponin down.On tele. Objective Last 24 Hour Vital Signs Date Time Temp Pulse Resp B/P (MAP) Pulse Ox O2 Delivery O2 Flow Rate FiO2 08/06/19 09:00 50 103/49 08/06/19 09:00 Room Air 08/06/19 08:00 97.9 50 18 103/49 (67) 100 08/06/19 08:00 49 08/06/19 04:00 50 08/06/19 04:00 97.6 50 17 110/46 (67) 96 08/06/19 00:00 97.6 59 17 133/70 (91) 96 08/06/19 00:00 53 08/05/19 21:28 64 143/66 08/05/19 21:00 Room Air 08/05/19 20:00 97.5 64 18 143/66 (91) 96 08/05/19 20:00 59 08/05/19 16:00 68 08/05/19 16:00 97.1 62 20 114/57 (76) 99 Intake and Output 08/05/19 08/06/19 19:00 07:00 Intake Total 120 ml Output Total 350 ml 500 ml Balance -350 ml -380 ml Intake Oral 120 ml Output Urine Total 350 ml 500 ml # Voids 1 Laboratory Tests Test 08/06/19 08:20 White Blood Count 9.4 K/UL (4.8-10.8) Red Blood Count 3.43 M/UL (4.70-6.10) L Hemoglobin 10.2 G/DL (14.2-18.0) L Hematocrit 30.5 % (42.0-52.0) L Mean Corpuscular Volume 89 FL (80-99) Mean Corpuscular Hemoglobin 29.7 PG (27.0-31.0) Mean Corpuscular Hemoglobin Concent 33.3 G/DL (32.0-36.0) Red Cell Distribution Width 13.0 % (11.6-14.8) Platelet Count 128 K/UL (150-450) L Mean Platelet Volume 5.1 FL (6.5-10.1) L Neutrophils (%) (Auto) 78.2 % (45.0-75.0) H Lymphocytes (%) (Auto) 11.5 % (20.0-45.0) L Monocytes (%) (Auto) 5.2 % (1.0-10.0) Eosinophils (%) (Auto) 4.0 % (0.0-3.0) H Basophils (%) (Auto) 1.1 % (0.0-2.0) Sodium Level 148 MMOL/L (136-145) H Potassium Level 3.7 MMOL/L (3.5-5.1) Chloride Level 113 MMOL/L (98-107) H Carbon Dioxide Level 27 MMOL/L (21-32) Anion Gap 8 mmol/L (5-15) Blood Urea Nitrogen 57 mg/dL (7-18) H Creatinine 3.8 MG/DL (0.55-1.30) H Estimat Glomerular Filtration Rate mL/min (>60) Glucose Level 143 MG/DL (74-106) H Uric Acid 6.4 MG/DL (2.6-7.2) Calcium Level 8.9 MG/DL (8.5-10.1) Phosphorus Level 4.0 MG/DL (2.5-4.9) Magnesium Level 1.7 MG/DL (1.8-2.4) L Total Bilirubin 0.7 MG/DL (0.2-1.0) Aspartate Amino Transf (AST/SGOT) 22 U/L (15-37) Alanine Aminotransferase (ALT/SGPT) 14 U/L (12-78) Alkaline Phosphatase 83 U/L (46-116) Troponin I 0.207 ng/mL (0.000-0.056) Total Protein 6.3 G/DL (6.4-8.2) L Albumin 2.5 G/DL (3.4-5.0) L Globulin 3.8 g/dL Albumin/Globulin Ratio 0.7 (1.0-2.7) L Microbiology Date/Time Source Procedure Growth Status 08/03/19 19:15 Blood Blood Culture - Preliminary NO GROWTH AFTER 48 HOURS Resulted 08/03/19 19:00 Blood Blood Culture - Preliminary NO GROWTH AFTER 48 HOURS Resulted 08/03/19 18:00 Nasal Nares MRSA Culture - Final NO METHICILLIN RESISTANT STAPH AUREUS... Complete 08/03/19 18:00 Rectum - Final NO CARBAPENEM-RESISTANT ENTEROBACTERI... Complete 08/03/19 18:00 Rectum VRE Culture - Final Enterococcus Faecium - Vre Complete Objective HEAD AND NECK: No JVD or carotid bruits. LUNGS: Clear. CARDIOVASCULAR: Regular S1 and S2 with no gallop or murmur. Sternotomy intact ABDOMEN: Soft and nontender. EXTREMITIES: No pitting edema. Sixto Wiggins MD Aug 06, 2019 13:26
--- NOTE | 2019-08-06 13:59 | General Progress Note ---
Assessment/Plan Problem List: (1) Depression ICD Codes: F32.9 - Depression SNOMED: 52380908 (2) Diabetes ICD Codes: E11.9 - Diabetes SNOMED: 92803737 (3) Atrial fibrillation ICD Codes: I48.91 - Unspecified atrial fibrillation SNOMED: 61486225 (4) CAD (coronary artery disease) ICD Codes: I25.10 - Atherosclerotic heart disease of [place] coronary artery without angina pectoris SNOMED: 33298726 (5) Elevated troponin ICD Codes: R79.89 - Other specified abnormal findings of blood chemistry SNOMED: 420348411, 038039122, 107679189 (6) HTN (hypertension) ICD Codes: I10 - HTN (hypertension) SNOMED: 80453225 (7) HAP (hospital-acquired pneumonia) ICD Codes: J18.9 - Pneumonia, unspecified organism; Y95 - Nosocomial condition SNOMED: 455265230 (8) Acute on chronic renal failure ICD Codes: N17.9 - Acute kidney failure, unspecified; N18.9 - Chronic kidney disease, unspecified SNOMED: 514928646 Qualifiers: Qualified Codes: N17.9 - Acute kidney failure, unspecified; N18.9 - Chronic kidney disease, unspecified (9) Sepsis ICD Codes: A41.9 - Sepsis, unspecified organism SNOMED: 72135890 (10) Metabolic encephalopathy ICD Codes: G93.41 - Metabolic encephalopathy SNOMED: 58704257 (11) History of COPD ICD Codes: Z87.09 - Personal history of other diseases of the respiratory system SNOMED: 166748165 Status: progressing Assessment/Plan: 84 yo man with PMH of IDDM (type II), CKD (creatinine ~1.6 baseline), HTN, HLD, COPD (not on home O2), CHF (unknown EF), dementia (AAOx1-2 at baseline), Afib ( not on A/C), CAD, GERD, and iron deficiency anemia who presented from [facility] with acute on chronic renal failure, NSTEMI type 2, Sepsis #Acute on chronic renal failure. Suspect prerenal. Do not suspect cardiorenal as patient is euvolemic on exam. Could have urinary retention but bladder scan not performed prior to insertion of sommers. Slowly improving. -telemetry--> sinus migdalia, 1st degree AV block -Appreciate nephrology consultation: Dr. Birmingham -Urine lytes, urine eosinophils -Bladder scan, PVR then insert Sommers for strict I's and O's -Renal ultrasound, no hydronephrosis, has echogenic kidneys -Avoid nephrotoxins -hold lasix -s/p Gentle normal saline IV 500 cc #NSTEMI, suspect type 2 due to demand ischemia -Continue to trend troponins until plateaued. down trending . Denies any chest pain. -Appreciate cardiology recommendations: Dr. Wiggins #Sepsis (Leukocytosis, AMS). 2/2 possible HCAP. -Obtain CT chest to further evaluate Left lung mass -Blood cultures x2 - negative to date -Sputum culture, induced -Vancomycin per pharmacy (08/04/19 - ) -Cefepime (08/04/19- ) -Flagyl (08/04/19 - ) - De-escalate pending cultures #Systolic heart failure, compensated. EF 40-45% Differential includes ischemic, versus tachycardia induced, versus cardiomyopathy #hx HTN, HLD #hx Afib not on A/C #hx CAD -Appreciate cardiology recommendations: Dr. Wiggins -Monitor on telemetry -Lisinopril 10 mg p.o. daily -Aspirin 81 mg p.o. daily -Atorvastatin 40 mg p.o. nightly -Coreg 3.125 every 12 hours #Metabolic Encephalopathy #hx dementia (baseline AAOx1-2 and conversant) > EEG negative - Treatment for infections as per above - CT head without acute findings - Resume home memantine 10mg PO BID #hx GERD - Continue home protonix 40mg IV daily. Can change to PO once mental status improves #hx IDDM - Last A1C 6.8 from 05/2019 [facility] records - On lantus 23U qhs at SNF - levemir 5U qhs - SSI lispro QACHS and monitor FS #Iron def anemia - Resume home ferrous sulfate 325mg PO BID once infection treated FENPPX DVTPPX: heparin sbq GI PPX: protonix Fluids: 500 cc bolus today Diet: regular Lines: peripheral PT/OT: pending Code status: full Dispo: Back to snf Reason for Continued Hospitalization: Acute renal failure 38 minutes spent on this encounter. Discussed with RN, patient, cardiology, and nephrology . > 50% spent on counseling and care coordination. I spent an additional 31 minutes in reviewing patient's chart and old records Time of note may not reflect time patient was seen. Subjective Date patient seen: Aug 06, 2019 ROS Limited/Unobtainable: No Constitutional: Denies: no symptoms, chills, diaphoresis, fever, malaise, weakness, other HEENT: Denies: no symptoms, eye pain, blurred vision, tearing, double vision, ear pain, ear discharge, nose pain, nose congestion, throat pain, throat swelling, mouth pain, mouth swelling, other Cardiovascular: Denies: no symptoms, chest pain, edema, irregular heart rate, lightheadedness, palpitations, syncope, other Respiratory: Denies: no symptoms, cough, orthopnea, shortness of breath, SOB with excertion, SOB at rest, sputum, stridor, wheezing, other Gastrointestinal/Abdominal: Denies: no symptoms, abdomen distended, abdominal pain, black stools, tarry stools, blood in stool, constipated, diarrhea, difficulty swallowing, nausea, poor appetite, poor fluid intake, rectal bleeding , vomiting, other Genitourinary: Denies: no symptoms, burning, discharge, frequency, flank pain, hematuria, incontinence, pain, urgency, other Neurologic/Psychiatric: Denies: no symptoms, anxiety, depressed, emotional problems, headache, numbness, paresthesia, pre-existing deficit, seizure, tingling, tremors, weakness, other Endocrine: Denies: no symptoms, excessive sweating, flushing, intolerance to cold, intolerance to heat, increased hunger, increased thirst, increased urine, unexplained weight gain, unexplained weight loss, other Hematologic/Lymphatic: Denies: no symptoms, anemia, easy bleeding, easy bruising, other Allergies: Coded Allergies: No Known Allergies (Unverified , 12/09/13) Subjective seen and examined at bedside. Very pleasant. Has no complaints. Tele reviewed, sinus bradycardia with 1st degree AV block Objective Last 24 Hour Vital Signs Date Time Temp Pulse Resp B/P (MAP) Pulse Ox O2 Delivery O2 Flow Rate FiO2 08/06/19 12:00 49 08/06/19 12:00 97.5 50 18 116/52 (73) 98 08/06/19 09:00 50 103/49 08/06/19 09:00 Room Air 08/06/19 08:00 97.9 50 18 103/49 (67) 100 08/06/19 08:00 49 08/06/19 04:00 50 08/06/19 04:00 97.6 50 17 110/46 (67) 96 08/06/19 00:00 97.6 59 17 133/70 (91) 96 08/06/19 00:00 53 08/05/19 21:28 64 143/66 08/05/19 21:00 Room Air 08/05/19 20:00 97.5 64 18 143/66 (91) 96 08/05/19 20:00 59 08/05/19 16:00 68 08/05/19 16:00 97.1 62 20 114/57 (76) 99 Intake and Output 08/05/19 08/06/19 19:00 07:00 Intake Total 120 ml Output Total 350 ml 500 ml Balance -350 ml -380 ml Intake Oral 120 ml Output Urine Total 350 ml 500 ml # Voids 1 Laboratory Tests 08/06/19 08:20: White Blood Count 9.4, Red Blood Count 3.43L, Hemoglobin 10.2L, Hematocrit 30.5L , Mean Corpuscular Volume 89, Mean Corpuscular Hemoglobin 29.7, Mean Corpuscular Hemoglobin Concent 33.3, Red Cell Distribution Width 13.0, Platelet Count 128L, Mean Platelet Volume 5.1L, Neutrophils (%) (Auto) 78.2H, Lymphocytes (%) (Auto) 11.5L, Monocytes (%) (Auto) 5.2, Eosinophils (%) (Auto) 4.0H, Basophils (%) (Auto) 1.1, Sodium Level 148H, Potassium Level 3.7, Chloride Level 113H, Carbon Dioxide Level 27, Anion Gap 8, Blood Urea Nitrogen 57H, Creatinine 3.8H, Estimat Glomerular Filtration Rate , Glucose Level 143H, Uric Acid 6.4, Calcium Level 8.9, Phosphorus Level 4.0, Magnesium Level 1.7L, Total Bilirubin 0.7, Aspartate Amino Transf (AST/SGOT) 22, Alanine Aminotransferase (ALT/SGPT) 14, Alkaline Phosphatase 83, Troponin I 0.207H, Total Protein 6.3L, Albumin 2.5L, Globulin 3.8, Albumin/Globulin Ratio 0.7L Height (Feet): 5 Height (Inches): 11.00 Weight (Pounds): 170 Objective General Appearance: WD/WN, no apparent distress, alert, confused EENT: PERRL/EOMI, normal ENT inspection Neck: non-tender, normal alignment, supple Cardiovascular: normal peripheral pulses, normal rate, regular rhythm, no JVD Respiratory/Chest: chest wall non-tender, lungs clear, normal breath sounds Abdomen: normal bowel sounds, non tender, soft, no organomegaly, no mass Extremities: normal range of motion, non-tender, normal inspection Edema: other - No lower extremity edema bilaterally Neurologic: meat 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 Aug 06, 2019 13:59
[2019-08-06] MEDS: Cefepime 1gm/D5W 55ml IVPB SCH ×2 (15:24)
[2019-08-06 16:00] VITALS: BP 100/44
--- NOTE | 2019-08-06 16:17 | Nephrology Progress Note ---
Assessment/Plan Problem List: (1) Acute on chronic renal failure Assessment: Cr lowering (2) HTN (hypertension) (3) Pleural effusion (4) Diabetes Assessment Acute on chronic kidney disease, likely DM , HTN Kidney MILAGROS, no [place], but echogenic kidneys left lung pleural effusion vs Pneumonia elevated troponin Plan One liter IV fluids UA Echo refused once- reordered MILAGROS kidney - noted monitor renal parameters Flomax BS abd BP check CXR: Again seen is opacity within the mid to lower left lung which may represent pneumonia. Underlying mass is not excluded. Small bilateral pleural effusions. Subjective ROS Limited/Unobtainable: No Constitutional: Reports: malaise Objective Objective Last 24 Hour Vital Signs Date Time Temp Pulse Resp B/P (MAP) Pulse Ox O2 Delivery O2 Flow Rate FiO2 08/06/19 12:00 49 08/06/19 12:00 97.5 50 18 116/52 (73) 98 08/06/19 09:00 50 103/49 08/06/19 09:00 Room Air 08/06/19 08:00 97.9 50 18 103/49 (67) 100 08/06/19 08:00 49 08/06/19 04:00 50 08/06/19 04:00 97.6 50 17 110/46 (67) 96 08/06/19 00:00 97.6 59 17 133/70 (91) 96 08/06/19 00:00 53 08/05/19 21:28 64 143/66 08/05/19 21:00 Room Air 08/05/19 20:00 97.5 64 18 143/66 (91) 96 08/05/19 20:00 59 Intake and Output 08/05/19 08/06/19 19:00 07:00 Intake Total 120 ml Output Total 350 ml 500 ml Balance -350 ml -380 ml Intake Oral 120 ml Output Urine Total 350 ml 500 ml # Voids 1 Laboratory Tests 08/06/19 08:20: White Blood Count 9.4, Red Blood Count 3.43L, Hemoglobin 10.2L, Hematocrit 30.5L , Mean Corpuscular Volume 89, Mean Corpuscular Hemoglobin 29.7, Mean Corpuscular Hemoglobin Concent 33.3, Red Cell Distribution Width 13.0, Platelet Count 128L, Mean Platelet Volume 5.1L, Neutrophils (%) (Auto) 78.2H, Lymphocytes (%) (Auto) 11.5L, Monocytes (%) (Auto) 5.2, Eosinophils (%) (Auto) 4.0H, Basophils (%) (Auto) 1.1, Sodium Level 148H, Potassium Level 3.7, Chloride Level 113H, Carbon Dioxide Level 27, Anion Gap 8, Blood Urea Nitrogen 57H, Creatinine 3.8H, Estimat Glomerular Filtration Rate , Glucose Level 143H, Uric Acid 6.4, Calcium Level 8.9, Phosphorus Level 4.0, Magnesium Level 1.7L, Total Bilirubin 0.7, Aspartate Amino Transf (AST/SGOT) 22, Alanine Aminotransferase (ALT/SGPT) 14, Alkaline Phosphatase 83, Troponin I 0.207H, Total Protein 6.3L, Albumin 2.5L, Globulin 3.8, Albumin/Globulin Ratio 0.7L Height (Feet): 5 Height (Inches): 11.00 Weight (Pounds): 170 General Appearance: no apparent distress Objective no change Bill Redman MD Aug 06, 2019 16:17
--- NOTE | 2019-08-06 18:10 | NUR ---
NURSE NOTES: The patient is stable without acute distress or shortness of breath. Will continue plan of care.
--- NOTE | 2019-08-06 19:05 | NUR ---
HAND-OFF: Report given to DENAE Rubio. The patient is resting on the bed without acute distress or shortness of breath. The patient's bed in the lowest position, call light in reach, and fall and aspiration precaution reinforced. IV site intact and patent. Landis intact and draining well. Endorsed plan of care.
--- NOTE | 2019-08-06 19:10 | NUR ---
NURSE NOTES: Received patient from DENAE Fong. Patient asleep in bed, no signs of shortness of breath, pain, or distress noted. Patient has 16F sommers in place. IV site intact and patent, no signs of bleeding, infiltration, or erythema noted, 1/2 NS running at 75 mL/hr. Patient is on room air, able to make needs known, and on bedrest. Bed in lowest position, side rails up x3, brakes on, and call light within reach. Will continue with plan of care.
[2019-08-06 20:00] VITALS: BP 110/61
[2019-08-07] VITALS: BP 112/62
[2019-08-07 03:35] LABS: APPEARANCE,URINE CLEAR; BILIRUBIN, URINE NEGATIVE (NEGATIVE); COLOR,URINE PALE YELLOW; GLUCOSE, URINE (UA) NEGATIVE (NEGATIVE); KETONES,URINE NEGATIVE (NEGATIVE); LEUKOCYTE ESTERASE ,URINE 1+ (NEGATIVE); NITRITE,URINE NEGATIVE (NEGATIVE); PH,URINE 5 (4.5-8.0); PROTEIN,URINE 2+ (NEGATIVE); UROBILINOGEN,URINE NORMAL MG/DL (0.0-1.0)
[2019-08-07 04:00] VITALS: BP 124/54
[2019-08-07] MEDS: metroNIDAZOLE 500mg tab ORAL SCH ×3 (06:16→21:16)
--- NOTE | 2019-08-07 07:06 | NUR ---
HAND-OFF: Report given to DENAE Fong. Plan of care endorsed.
--- NOTE | 2019-08-07 07:10 | NUR ---
NURSE NOTES: Received report from DENAE Rubio. The patient is resting on the bed without acute distress or shortness of breath. The patient's bed in the lowest position, call light in reach, and fall and aspiration precaution reinforced. IV site intact and patent. Will continue plan of care.
[2019-08-07 08:00] VITALS: BP 137/55
[2019-08-07 08:40] LABS: EOSINOPHILS % (AUTO) 4.6 % (0.0-3.0); HEMOGLOBIN 10.1 G/DL (14.2-18.0); LYMPHOCYTES % (AUTO) 12.5 % (20.0-45.0); MEAN CORPUSCULAR VOLUME 90 FL (80-99); MONOCYTES % (AUTO) 5.5 % (1.0-10.0); NEUTROPHILS % (AUTO) 76.3 % (45.0-75.0); PLATELET COUNT 126 K/UL (150-450); RED BLOOD COUNT 3.35 M/UL (4.70-6.10); RED CELL DISTRIBUTION WIDTH 12.6 % (11.6-14.8); WHITE BLOOD COUNT 9.2 K/UL (4.8-10.8)
[2019-08-07] MEDS: Heparin 5000 units/ml inj SUBQ SCH ×2 (09:00→21:00)
[2019-08-07] MEDS: Aspirin EC 81mg tab ORAL SCH (09:00)
--- NOTE | 2019-08-07 09:00 | NUR ---
NURSE NOTES: Notified Dr. Davila regarding positive blood in urine. Per Dr. Davila, hold blood thinner in the morning. Will continue plan of care.
[2019-08-07 09:08] LABS: ALANINE AMINOTRANSFERASE 14 U/L (12-78); ALBUMIN 2.5 G/DL (3.4-5.0); ALBUMIN/GLOBULIN RATIO 0.7 (1.0-2.7); ALKALINE PHOSPHATASE 82 U/L (46-116); ANION GAP 10 mmol/L (5-15); ASPARTATE AMINO TRANSFERASE 19 U/L (15-37); BILIRUBIN,TOTAL 0.7 MG/DL (0.2-1.0); BLOOD UREA NITROGEN 53 mg/dL (7-18); CALCIUM 8.5 MG/DL (8.5-10.1); CARBON DIOXIDE 24 MMOL/L (21-32); CHLORIDE 110 MMOL/L (98-107); CREATININE 3.6 MG/DL (0.55-1.30); POTASSIUM 3.5 MMOL/L (3.5-5.1); SODIUM 144 MMOL/L (136-145)
[2019-08-07] MEDS: Docusate 100mg cap ORAL SCH ×3 (09:23→17:29)
[2019-08-07] MEDS: Memantine 10mg tab ORAL SCH ×2 (09:24→17:29)
[2019-08-07] MEDS: Tamsulosin 0.4mg cap ORAL SCH ×2 (09:24→17:29)
[2019-08-07] MEDS: Allopurinol 100mg Tab ORAL SCH (09:24)
[2019-08-07] MEDS: Nateglinide 60mg tab ORAL SCH ×3 (09:24→17:29)
[2019-08-07 09:30] LABS: PHOSPHORUS 3.4 MG/DL (2.5-4.9)
--- NOTE | 2019-08-07 10:00 | NUR ---
NURSE NOTES: Dr. Redman and Dr. Davila at the bedside assessed the patient. Notified Dr. Redman and Dr. Davila regarding blood in urine based on UA. Notified Dr. Redman and Dr. Davila regarding abnormal lab result. No new order but continue monitoring. Will continue plan of care.
--- NOTE | 2019-08-07 10:59 | NUR ---
CASE MANAGEMENT: REVIEW 08/07/19 SI:RENAL FAILURE; ELEVATED TROP, PLEURAL EFFUSION 97.7 56 18 137/55 96% ON RA RBC 3.35; H/H 10.1/ 30.0; BUN 53; CREAT 3.6; MG 1.5 08/06TROP 0.616-0.207 IS: IV VANCOMYCIN X1 IVF NS @75HR IV CEFEPIME Q24HR FLAGYL PO Q8HR PROTONIX PO QD LIPITOR PO HS COREG PO Q12HR FOLATE PO QD STARLIX PO TID FLOMAX PO BID COLACE PO TID ALLOPURINOL PO QD NAMENDA PO BID ASPIRIN PO QD : 2E TELE UNIT DCP: TO [facility] ONCE MEDICALLY CLEARED
[2019-08-07] MEDS ORDERED: Vancomycin 1gm in D5W 275ml IVPB SCH (11:00)
--- NOTE | 2019-08-07 11:21 | NUR ---
*-* INSURANCE *-* ALL CLINICALS AND REVIEWS HAVE BEEN FAXED TO: TANISHA Odonnell Ref#[id number]
--- NOTE | 2019-08-07 11:29 | CDS Physician Query ---
Clarification is required for compliance, coding accuracy, and to reflect severity of illness for this patient Dear Dr. Birmingham Date:08.07.19 CDS: Amber Monterroso Contact: Please clarify the stage of the patient CKD: Progress note supports acute on chronic CKD. [ ] CKD Stage 1 Caused by DM, HTN, etc. with kidney abnormality 90 mL/min or more [ ] CKD Stage 2 Mild decrease in Kidney function 60 to 89 mL/min [ ] CKD Stage 3 Moderate decrease in kidney function 30- 59 [ ] CKD Stage 4 Severe decrease in kidney function 15-29 [ ] CKD Stage 5 Kidney failure; requiring dialysis or transplantation <15 [ ] ESRD Patient requiring dialysis for > 3 months or kidney transplant irrespective of level of GFR; Applicable for 1 year after kidney transplant. [ ] Other: [ ] Comment/Explanation: Present on Admission: [ ] Yes [ ] No [ ] Clinically Undetermined Physician signature Date Please also document in your Progress Notes and/or Discharge Summary and indicate if the condition was present on admission. PRECIOUS
--- NOTE | 2019-08-07 11:40 | NUR ---
NURSE NOTES: The patient is stable without acute distress or shortness of breath. Will continue plan of care.
[2019-08-07 12:00] VITALS: BP 105/50
--- NOTE | 2019-08-07 13:31 | Cardiology Report ---
APPROVED REPORT EXAM: Two-dimensional and M-mode echocardiogram with Doppler and color Doppler. INDICATION Congestive Heart Failure M-Mode DIMENSIONS IVSd1.2 (0.7-1.1cm)Left Atrium (MM)4.8 (1.6-4.0cm) LVDd4.9 (3.5-5.6cm)Aortic Root3.5 (2.0-3.7cm) PWd1.1 (0.7-1.1cm)Aortic Cusp Exc.1.8 (1.5-2.0cm) LVDs4.1 (2.5-4.0cm) PWs1.4 cm Normal left ventricular chamber size. Borderline normal LV fucntion Left ventricular ejection fraction estimated to be 50 %. No evidence of pericardial effusion. Left atrial enlargement. Right cardiac chamber sizes are within normal limits. Focal aortic valve sclerosis with adequate cusp excursion. Thickened mitral valve leaflets with normal excursion. Mitral annulus and aortic root calcification. Normal pulmonic valve structure. Normal tricuspid valve structure. IVC at normal size with physiologic collapse. A color flow and spectral Doppler study was performed and revealed: Trace aortic regurgitation. Peak mitral valve gradient of 5 mmHg and a mean of 2 mmHg. Mild mitral regurgitation. Mitral diastolic velocities suggest reduced left ventricular relaxation c/w mild LV diastolic dysfunction (Grade I). Mild tricuspid regurgitation. Tricuspid systolic velocities suggests peak right ventricular systolic pressure of 36 mmHg consistent with mild pulmonary hypertension. Trace pulmonic regurgitation present.
--- NOTE | 2019-08-07 13:41 | Nephrology Progress Note ---
Assessment/Plan Problem List: (1) Acute on chronic renal failure Assessment: Cr lowering (2) HTN (hypertension) (3) Pleural effusion (4) Diabetes Assessment Acute on chronic kidney disease, likely DM , HTN Kidney MILAGROS, no Oden, but echogenic kidneys left lung pleural effusion vs Pneumonia elevated troponin Plan Mag IV One liter IV fluids UA Echo refused once- reordered MILAGROS kidney - noted monitor renal parameters Flomax BS abd BP check CXR: Again seen is opacity within the mid to lower left lung which may represent pneumonia. Underlying mass is not excluded. Small bilateral pleural effusions. Subjective ROS Limited/Unobtainable: No Constitutional: Reports: malaise, weakness Objective Objective Last 24 Hour Vital Signs Date Time Temp Pulse Resp B/P (MAP) Pulse Ox O2 Delivery O2 Flow Rate FiO2 08/07/19 12:00 97.5 56 20 105/50 (68) 97 08/07/19 09:00 Room Air 08/07/19 08:00 58 08/07/19 08:00 97.7 56 18 137/55 (82) 96 08/07/19 04:00 98.4 59 18 124/54 (77) 100 08/07/19 04:00 58 08/07/19 00:00 58 08/07/19 00:00 98.1 66 18 112/62 (79) 97 08/06/19 21:00 Room Air 08/06/19 20:00 98.1 55 18 110/61 (77) 95 08/06/19 20:00 54 08/06/19 16:00 64 08/06/19 16:00 96.3 57 18 100/44 (62) 98 Intake and Output 08/06/19 08/07/19 19:00 07:00 Intake Total 510 ml 945 ml Output Total 200 ml 600 ml Balance 310 ml 345 ml Intake Oral 510 ml 120 ml IV Total 825 ml Output Urine Total 200 ml 600 ml Laboratory Tests 08/07/19 01:15: Urine Color Pale yellow, Urine Appearance Clear, Urine pH 5, Urine Specific [employer] 1.010, Urine Protein 2+H, Urine Glucose (UA) Negative, Urine Ketones Negative, Urine Blood 5+H, Urine Nitrite Negative, Urine Bilirubin Negative, Urine Urobilinogen Normal, Urine Leukocyte Esterase 1+H, Urine RBC TntcH, Urine WBC 0-2, Urine Squamous Epithelial Cells None, Urine Bacteria Few 08/07/19 07:25: White Blood Count 9.2, Red Blood Count 3.35L, Hemoglobin 10.1L, Hematocrit 30.0L , Mean Corpuscular Volume 90, Mean Corpuscular Hemoglobin 30.1, Mean Corpuscular Hemoglobin Concent 33.6, Red Cell Distribution Width 12.6, Platelet Count 126L, Mean Platelet Volume 5.5L, Neutrophils (%) (Auto) 76.3H, Lymphocytes (%) (Auto) 12.5L, Monocytes (%) (Auto) 5.5, Eosinophils (%) (Auto) 4.6H, Basophils (%) (Auto) 1.0, Sodium Level 144, Potassium Level 3.5, Chloride Level 110H, Carbon Dioxide Level 24, Anion Gap 10, Blood Urea Nitrogen 53H, Creatinine 3.6H, Estimat Glomerular Filtration Rate , Glucose Level 102, Uric Acid 6.2, Calcium Level 8.5, Phosphorus Level 3.4, Magnesium Level 1.5L, Total Bilirubin 0.7, Aspartate Amino Transf (AST/SGOT) 19, Alanine Aminotransferase ( ALT/SGPT) 14, Alkaline Phosphatase 82, Total Protein 6.2L, Albumin 2.5L, Globulin 3.7, Albumin/Globulin Ratio 0.7L, Random Vancomycin Level 15.0 Height (Feet): 5 Height (Inches): 11.00 Weight (Pounds): 170 General Appearance: no apparent distress Cardiovascular: bradycardia Respiratory/Chest: decreased breath sounds Abdomen: soft, distended Objective no change Bill Redman MD Aug 07, 2019 13:41
--- NOTE | 2019-08-07 14:00 | NUR ---
NURSE NOTES: Dr. Redman ordered Magnesium sulfate 1gram x2. Will administer as ordered. Will continue plan of care.
[2019-08-07] MEDS: Cefepime 1gm/D5W 55ml IVPB SCH ×2 (15:13)
--- NOTE | 2019-08-07 15:45 | General Progress Note ---
Assessment/Plan Problem List: (1) Depression ICD Codes: F32.9 - Depression SNOMED: 27186553 (2) Diabetes ICD Codes: E11.9 - Diabetes SNOMED: 86937741 (3) Atrial fibrillation ICD Codes: I48.91 - Unspecified atrial fibrillation SNOMED: 37267296 (4) CAD (coronary artery disease) ICD Codes: I25.10 - Atherosclerotic heart disease of [place] coronary artery without angina pectoris SNOMED: 34324382 (5) Elevated troponin ICD Codes: R79.89 - Other specified abnormal findings of blood chemistry SNOMED: 942837514, 769684551, 999809679 (6) HTN (hypertension) ICD Codes: I10 - HTN (hypertension) SNOMED: 46612961 (7) HAP (hospital-acquired pneumonia) ICD Codes: J18.9 - Pneumonia, unspecified organism; Y95 - Nosocomial condition SNOMED: 501183909 (8) Acute on chronic renal failure ICD Codes: N17.9 - Acute kidney failure, unspecified; N18.9 - Chronic kidney disease, unspecified SNOMED: 603849193 Qualifiers: Qualified Codes: N17.9 - Acute kidney failure, unspecified; N18.9 - Chronic kidney disease, unspecified (9) Sepsis ICD Codes: A41.9 - Sepsis, unspecified organism SNOMED: 59499361 (10) Metabolic encephalopathy ICD Codes: G93.41 - Metabolic encephalopathy SNOMED: 31008272 (11) History of COPD ICD Codes: Z87.09 - Personal history of other diseases of the respiratory system SNOMED: 431827414 Status: progressing Assessment/Plan: 84 yo man with PMH of IDDM (type II), CKD (creatinine ~1.6 baseline), HTN, HLD, COPD (not on home O2), CHF (unknown EF), dementia (AAOx1-2 at baseline), Afib ( not on A/C), CAD, GERD, and iron deficiency anemia who presented from [facility] with acute on chronic renal failure, NSTEMI type 2, Sepsis #Acute on chronic renal failure. Suspect prerenal. Do not suspect cardiorenal as patient is euvolemic on exam. Could have urinary retention but bladder scan not performed prior to insertion of sommers. Slowly improving. -telemetry--> sinus migdalia, 1st degree AV block -Appreciate nephrology consultation: Dr. Vinnie Serrano for strict I's and O's -Renal ultrasound, no hydronephrosis, has echogenic kidneys -Avoid nephrotoxins -hold lasix -s/p Gentle normal saline IV 500 cc -Hematuria- UA sent #NSTEMI, suspect type 2 due to demand ischemia -Continue to trend troponins until plateaued. down trending . Denies any chest pain. -Appreciate cardiology recommendations: Dr. Wiggins #Sepsis (Leukocytosis, AMS). 2/2 possible HCAP. -Obtain CT chest to further evaluate Left lung mass -Blood cultures x2 - negative to date -Sputum culture, induced -Vancomycin per pharmacy (08/04/19 - ) -Cefepime (08/04/19- ) -Flagyl (08/04/19 - ) - De-escalate pending cultures #Systolic heart failure, compensated. EF 40-45% Differential includes ischemic, versus tachycardia induced, versus cardiomyopathy #hx HTN, HLD #hx Afib not on A/C #hx CAD -Appreciate cardiology recommendations: Dr. Wiggins -Monitor on telemetry -Lisinopril 10 mg p.o. daily -Aspirin 81 mg p.o. daily -Atorvastatin 40 mg p.o. nightly -Coreg 3.125 every 12 hours #Metabolic Encephalopathy #hx dementia (baseline AAOx1-2 and conversant) > EEG negative - Treatment for infections as per above - CT head without acute findings - Resume home memantine 10mg PO BID #hx GERD - Continue home protonix 40mg IV daily. Can change to PO once mental status improves #hx IDDM - Last A1C 6.8 from 05/2019 [facility] records - On lantus 23U qhs at SNF - levemir 5U qhs - SSI lispro QACHS and monitor FS #Iron def anemia - Resume home ferrous sulfate 325mg PO BID once infection treated FENPPX DVTPPX: heparin sbq GI PPX: protonix Fluids: 500 cc bolus today Diet: regular Lines: peripheral PT/OT: pending Code status: full Dispo: Back to snf Reason for Continued Hospitalization: Acute renal failure 38 minutes spent on this encounter. Discussed with RN, patient, cardiology, and nephrology . > 50% spent on counseling and care coordination. I spent an additional 31 minutes in reviewing patient's chart and old records Time of note may not reflect time patient was seen. Subjective Date patient seen: Aug 07, 2019 ROS Limited/Unobtainable: No Constitutional: Denies: no symptoms, chills, diaphoresis, fever, malaise, weakness, other HEENT: Denies: no symptoms, eye pain, blurred vision, tearing, double vision, ear pain, ear discharge, nose pain, nose congestion, throat pain, throat swelling, mouth pain, mouth swelling, other Cardiovascular: Denies: no symptoms, chest pain, edema, irregular heart rate, lightheadedness, palpitations, syncope, other Respiratory: Denies: no symptoms, cough, orthopnea, shortness of breath, SOB with excertion, SOB at rest, sputum, stridor, wheezing, other Gastrointestinal/Abdominal: Denies: no symptoms, abdomen distended, abdominal pain, black stools, tarry stools, blood in stool, constipated, diarrhea, difficulty swallowing, nausea, poor appetite, poor fluid intake, rectal bleeding , vomiting, other Genitourinary: Reports: no symptoms, burning, discharge, frequency, flank pain , hematuria - seen in sommers bag , incontinence, pain, urgency, other Neurologic/Psychiatric: Denies: no symptoms, anxiety, depressed, emotional problems, headache, numbness, paresthesia, pre-existing deficit, seizure, tingling, tremors, weakness, other Endocrine: Denies: no symptoms, excessive sweating, flushing, intolerance to cold, intolerance to heat, increased hunger, increased thirst, increased urine, unexplained weight gain, unexplained weight loss, other Hematologic/Lymphatic: Denies: no symptoms, anemia, easy bleeding, easy bruising, other Allergies: Coded Allergies: No Known Allergies (Unverified , 12/09/13) Subjective seen and examined at bedside. Has no complaints. Tele reviewed, sinus bradycardia with 1st degree AV block. Hematuria noted. Cr trending down Objective Last 24 Hour Vital Signs Date Time Temp Pulse Resp B/P (MAP) Pulse Ox O2 Delivery O2 Flow Rate FiO2 08/07/19 12:00 97.5 56 20 105/50 (68) 97 08/07/19 12:00 59 08/07/19 09:00 Room Air 08/07/19 08:00 58 08/07/19 08:00 97.7 56 18 137/55 (82) 96 08/07/19 04:00 98.4 59 18 124/54 (77) 100 08/07/19 04:00 58 08/07/19 00:00 58 08/07/19 00:00 98.1 66 18 112/62 (79) 97 08/06/19 21:00 Room Air 08/06/19 20:00 98.1 55 18 110/61 (77) 95 08/06/19 20:00 54 08/06/19 16:00 64 08/06/19 16:00 96.3 57 18 100/44 (62) 98 Intake and Output 08/06/19 08/07/19 19:00 07:00 Intake Total 510 ml 945 ml Output Total 200 ml 600 ml Balance 310 ml 345 ml Intake Oral 510 ml 120 ml IV Total 825 ml Output Urine Total 200 ml 600 ml Laboratory Tests 08/07/19 01:15: Urine Color Pale yellow, Urine Appearance Clear, Urine pH 5, Urine Specific [place] 1.010, Urine Protein 2+H, Urine Glucose (UA) Negative, Urine Ketones Negative, Urine Blood 5+H, Urine Nitrite Negative, Urine Bilirubin Negative, Urine Urobilinogen Normal, Urine Leukocyte Esterase 1+H, Urine RBC TntcH, Urine WBC 0-2, Urine Squamous Epithelial Cells None, Urine Bacteria Few 08/07/19 07:25: White Blood Count 9.2, Red Blood Count 3.35L, Hemoglobin 10.1L, Hematocrit 30.0L , Mean Corpuscular Volume 90, Mean Corpuscular Hemoglobin 30.1, Mean Corpuscular Hemoglobin Concent 33.6, Red Cell Distribution Width 12.6, Platelet Count 126L, Mean Platelet Volume 5.5L, Neutrophils (%) (Auto) 76.3H, Lymphocytes (%) (Auto) 12.5L, Monocytes (%) (Auto) 5.5, Eosinophils (%) (Auto) 4.6H, Basophils (%) (Auto) 1.0, Sodium Level 144, Potassium Level 3.5, Chloride Level 110H, Carbon Dioxide Level 24, Anion Gap 10, Blood Urea Nitrogen 53H, Creatinine 3.6H, Estimat Glomerular Filtration Rate , Glucose Level 102, Uric Acid 6.2, Calcium Level 8.5, Phosphorus Level 3.4, Magnesium Level 1.5L, Total Bilirubin 0.7, Aspartate Amino Transf (AST/SGOT) 19, Alanine Aminotransferase ( ALT/SGPT) 14, Alkaline Phosphatase 82, Total Protein 6.2L, Albumin 2.5L, Globulin 3.7, Albumin/Globulin Ratio 0.7L, Random Vancomycin Level 15.0 Height (Feet): 5 Height (Inches): 11.00 Weight (Pounds): 170 Objective General Appearance: WD/WN, no apparent distress, alert, confused EENT: PERRL/EOMI, normal ENT inspection Neck: non-tender, normal alignment, supple Cardiovascular: normal peripheral pulses, normal rate, regular rhythm, no JVD Respiratory/Chest: chest wall non-tender, lungs clear, normal breath sounds Abdomen: normal bowel sounds, non tender, soft, no organomegaly, no mass Extremities: normal range of motion, non-tender, normal inspection Edema: other - No lower extremity edema bilaterally 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 Aug 07, 2019 15:45
[2019-08-07 16:00] VITALS: BP 113/51
--- NOTE | 2019-08-07 18:00 | NUR ---
NURSE NOTES: The patient is stable without acute distress or shortness of breath. Will continue plan of care.
--- NOTE | 2019-08-07 18:30 | NUR ---
NURSE NOTES: Notified Dr. Davila regarding extreme bradycardia with lowest of heart rate of 39 without symptoms. The patient is stable without acute distress or shortness of breath. No new order yet. Will continue plan of care.
--- NOTE | 2019-08-07 18:30 | NUR ---
NURSE NOTES: Notified Dr. Wiggins regarding asymptomatic bradycardia with lowest heart rate of 39. No new order per Dr. Wiggins. Will continue plan of care.
--- NOTE | 2019-08-07 19:06 | Cardiac Electrophysiology PN ---
Assessment/Plan Assessment/Plan 1. Ischemic cardiomyopathy, EF 40 to 45%, DC Coreg as was migdalia down to 30s. On lisinopril 2. Tropoin leak and history of CABG on aspirin, Lipitor. DC Coreg. No CP. 3. Paroxysmal atrial fibrillation, remained in sinus rhythm, first-degree AV block. Off anticoagulation and was off even at the [facility] 4. Hyperlipidemia on Lipitor. 5. Urinary tract infection. 6. Hospital-acquired pneumonia. DARON RN Subjective Subjective Comfortable in NAD. No CP or SOB. Coreg DCed as was bradycardic Objective Last 24 Hour Vital Signs Date Time Temp Pulse Resp B/P (MAP) Pulse Ox O2 Delivery O2 Flow Rate FiO2 08/07/19 16:00 63 08/07/19 16:00 97.2 58 20 113/51 (71) 98 08/07/19 12:00 97.5 56 20 105/50 (68) 97 08/07/19 12:00 59 08/07/19 09:00 Room Air 08/07/19 08:00 58 08/07/19 08:00 97.7 56 18 137/55 (82) 96 08/07/19 04:00 98.4 59 18 124/54 (77) 100 08/07/19 04:00 58 08/07/19 00:00 58 08/07/19 00:00 98.1 66 18 112/62 (79) 97 08/06/19 21:00 Room Air 08/06/19 20:00 98.1 55 18 110/61 (77) 95 08/06/19 20:00 54 Intake and Output 08/06/19 08/07/19 19:00 07:00 Intake Total 510 ml 945 ml Output Total 200 ml 600 ml Balance 310 ml 345 ml Intake Oral 510 ml 120 ml IV Total 825 ml Output Urine Total 200 ml 600 ml Laboratory Tests Test 08/07/19 01:15 08/07/19 07:25 Urine Color Pale yellow Urine Appearance Clear Urine pH 5 (4.5-8.0) Urine Specific [place] 1.010 (1.005-1.035) Urine Protein 2+ (NEGATIVE) H Urine Glucose (UA) Negative (NEGATIVE) Urine Ketones Negative (NEGATIVE) Urine Blood 5+ (NEGATIVE) H Urine Nitrite Negative (NEGATIVE) Urine Bilirubin Negative (NEGATIVE) Urine Urobilinogen Normal MG/DL (0.0-1.0) Urine Leukocyte Esterase 1+ (NEGATIVE) H Urine RBC Tntc /HPF (0 - 0) H Urine WBC 0-2 /HPF (0 - 0) Urine Squamous Epithelial Cells None /LPF (NONE/OCC) Urine Bacteria Few /HPF (NONE) White Blood Count 9.2 K/UL (4.8-10.8) Red Blood Count 3.35 M/UL (4.70-6.10) L Hemoglobin 10.1 G/DL (14.2-18.0) L Hematocrit 30.0 % (42.0-52.0) L Mean Corpuscular Volume 90 FL (80-99) Mean Corpuscular Hemoglobin 30.1 PG (27.0-31.0) Mean Corpuscular Hemoglobin Concent 33.6 G/DL (32.0-36.0) Red Cell Distribution Width 12.6 % (11.6-14.8) Platelet Count 126 K/UL (150-450) L Mean Platelet Volume 5.5 FL (6.5-10.1) L Neutrophils (%) (Auto) 76.3 % (45.0-75.0) H Lymphocytes (%) (Auto) 12.5 % (20.0-45.0) L Monocytes (%) (Auto) 5.5 % (1.0-10.0) Eosinophils (%) (Auto) 4.6 % (0.0-3.0) H Basophils (%) (Auto) 1.0 % (0.0-2.0) Sodium Level 144 MMOL/L (136-145) Potassium Level 3.5 MMOL/L (3.5-5.1) Chloride Level 110 MMOL/L (98-107) H Carbon Dioxide Level 24 MMOL/L (21-32) Anion Gap 10 mmol/L (5-15) Blood Urea Nitrogen 53 mg/dL (7-18) H Creatinine 3.6 MG/DL (0.55-1.30) H Estimat Glomerular Filtration Rate mL/min (>60) Glucose Level 102 MG/DL (74-106) Uric Acid 6.2 MG/DL (2.6-7.2) Calcium Level 8.5 MG/DL (8.5-10.1) Phosphorus Level 3.4 MG/DL (2.5-4.9) Magnesium Level 1.5 MG/DL (1.8-2.4) L Total Bilirubin 0.7 MG/DL (0.2-1.0) Aspartate Amino Transf (AST/SGOT) 19 U/L (15-37) Alanine Aminotransferase (ALT/SGPT) 14 U/L (12-78) Alkaline Phosphatase 82 U/L (46-116) Total Protein 6.2 G/DL (6.4-8.2) L Albumin 2.5 G/DL (3.4-5.0) L Globulin 3.7 g/dL Albumin/Globulin Ratio 0.7 (1.0-2.7) L Random Vancomycin Level 15.0 ug/mL Objective HEAD AND NECK: No JVD or carotid bruits. LUNGS: Clear. CARDIOVASCULAR: Regular S1 and S2 with no gallop or murmur. Sternotomy intact ABDOMEN: Soft and nontender. EXTREMITIES: No pitting edema. Sixto Wiggins MD Aug 07, 2019 19:05
--- NOTE | 2019-08-07 19:25 | NUR ---
NURSE NOTES: Received patient from DENAE Fong. Patient awake, talkative, and resting in bed comfortably. No signs of distress, shortness of breath, or pain noted. Patient is able to make needs known. IV site checked, intact and patent, no signs of infiltration, redness, or bleeding, 0.45% NS running at 75 mL/hr. Bed in lowest position, brakes on, side rails up x3, and call light within reach. Will continue with plan of care.
--- NOTE | 2019-08-07 19:43 | NUR ---
NURSE NOTES: Called and left message for Dr. Frederick regarding patient's sommers catheter continuation or removal. Awaiting callback. Will continue to monitor.
--- NOTE | 2019-08-07 19:55 | NUR ---
NURSE NOTES: Received orders from Dr. Alex regarding discontinuing sommers catheter in AM. Noted and carried out.
[2019-08-07 20:00] VITALS: BP 126/53
[2019-08-07] MEDS: Atorvastatin 20mg tab ORAL SCH (21:17)
[2019-08-08] VITALS: BP 113/47
[2019-08-08 04:00] VITALS: BP 111/52
[2019-08-08] MEDS: metroNIDAZOLE 500mg tab ORAL SCH ×3 (06:15→22:03)
--- NOTE | 2019-08-08 07:51 | NUR ---
HAND-OFF: Report given to DENAE Roberson. Plan of care endorsed.
[2019-08-08 08:00] VITALS: BP 125/60
[2019-08-08] MEDS: Nateglinide 60mg tab ORAL SCH ×4 (08:17→17:34)
[2019-08-08] MEDS: Aspirin EC 81mg tab ORAL SCH (08:17)
[2019-08-08] MEDS: Tamsulosin 0.4mg cap ORAL SCH ×2 (08:18→17:29)
[2019-08-08] MEDS: Allopurinol 100mg Tab ORAL SCH (08:18)
[2019-08-08] MEDS: Docusate 100mg cap ORAL SCH ×3 (08:18→17:29)
[2019-08-08] MEDS: Memantine 10mg tab ORAL SCH ×3 (08:18→17:34)
[2019-08-08] MEDS: Heparin 5000 units/ml inj SUBQ SCH ×2 (08:19→21:00)
--- NOTE | 2019-08-08 09:00 | General Progress Note ---
Assessment/Plan Problem List: (1) Depression ICD Codes: F32.9 - Depression SNOMED: 46818329 (2) Diabetes ICD Codes: E11.9 - Diabetes SNOMED: 54946168 (3) Atrial fibrillation ICD Codes: I48.91 - Unspecified atrial fibrillation SNOMED: 85961704 (4) CAD (coronary artery disease) ICD Codes: I25.10 - Atherosclerotic heart disease of [place] coronary artery without angina pectoris SNOMED: 40792834 (5) Elevated troponin ICD Codes: R79.89 - Other specified abnormal findings of blood chemistry SNOMED: 406907592, 595847881, 535057571 (6) HTN (hypertension) ICD Codes: I10 - HTN (hypertension) SNOMED: 72619208 (7) HAP (hospital-acquired pneumonia) ICD Codes: J18.9 - Pneumonia, unspecified organism; Y95 - Nosocomial condition SNOMED: 527646971 (8) Acute on chronic renal failure ICD Codes: N17.9 - Acute kidney failure, unspecified; N18.9 - Chronic kidney disease, unspecified SNOMED: 208071691 Qualifiers: Qualified Codes: N17.9 - Acute kidney failure, unspecified; N18.9 - Chronic kidney disease, unspecified (9) Sepsis ICD Codes: A41.9 - Sepsis, unspecified organism SNOMED: 84004504 (10) Metabolic encephalopathy ICD Codes: G93.41 - Metabolic encephalopathy SNOMED: 76628089 (11) History of COPD ICD Codes: Z87.09 - Personal history of other diseases of the respiratory system SNOMED: 854230252 Status: progressing Assessment/Plan: 84 yo man with PMH of IDDM (type II), CKD (creatinine ~1.6 baseline), HTN, HLD, COPD (not on home O2), CHF (unknown EF), dementia (AAOx1-2 at baseline), Afib ( not on A/C), CAD, GERD, and iron deficiency anemia who presented from [facility] with acute on chronic renal failure, NSTEMI type 2, Sepsis #Acute on chronic renal failure. Suspect prerenal. Do not suspect cardiorenal as patient is euvolemic on exam. Could have urinary retention but bladder scan not performed prior to insertion of sommers. Slowly improving. cr 3.0 today -telemetry--> sinus migdalia, 1st degree AV block -Appreciate nephrology consultation: Dr. Vinnie Serrano for strict I's and O's -Renal ultrasound, no hydronephrosis, has echogenic kidneys -Avoid nephrotoxins -hold lasix -s/p Gentle normal saline IV 500 cc -Hematuria- UA sent -Hypokalemia-> judicious with replacement due to renal failure -Magnesium-> okay today #NSTEMI, suspect type 2 due to demand ischemia -Continue to trend troponins until plateaued. down trending . Denies any chest pain. -Appreciate cardiology recommendations: Dr. Wiggins #Sepsis (Leukocytosis, AMS). 2/2 possible HCAP. -Obtain CT chest to further evaluate Left lung mass -Blood cultures x2 - negative to date -Sputum culture, induced, don't see any collected -Vancomycin per pharmacy (08/04/19 - ) -Cefepime (08/04/19- ) -Flagyl (08/04/19 - ) - De-escalate pending cultures #Systolic heart failure, compensated. EF 40-45% Differential includes ischemic, versus tachycardia induced, versus cardiomyopathy #hx HTN, HLD #hx Afib not on A/C #hx CAD -Appreciate cardiology recommendations: Dr. Wiggins -Monitor on telemetry -Lisinopril 10 mg p.o. daily -Aspirin 81 mg p.o. daily -Atorvastatin 40 mg p.o. nightly -Coreg 3.125 every 12 hours #Metabolic Encephalopathy #hx dementia (baseline AAOx1-2 and conversant) > EEG negative - Treatment for infections as per above - CT head without acute findings - Resume home memantine 10mg PO BID #hx GERD - Continue home protonix 40mg IV daily. Can change to PO once mental status improves #hx IDDM - Last A1C 6.8 from 05/2019 [facility] records - On lantus 23U qhs at SNF - levemir 5U qhs - SSI lispro QACHS and monitor FS #Iron def anemia - Resume home ferrous sulfate 325mg PO BID once infection treated FENPPX DVTPPX: heparin sbq GI PPX: protonix Fluids: 500 cc bolus today Diet: regular Lines: peripheral PT/OT: pending Code status: full Dispo: Back to snf Reason for Continued Hospitalization: Acute renal failure 38 minutes spent on this encounter. Discussed with RN, patient, cardiology, and nephrology . > 50% spent on counseling and care coordination. I spent an additional 31 minutes in reviewing patient's chart and old records Time of note may not reflect time patient was seen. Subjective Date patient seen: Aug 08, 2019 ROS Limited/Unobtainable: No Constitutional: Denies: no symptoms, chills, diaphoresis, fever, malaise, weakness, other HEENT: Denies: no symptoms, eye pain, blurred vision, tearing, double vision, ear pain, ear discharge, nose pain, nose congestion, throat pain, throat swelling, mouth pain, mouth swelling, other Cardiovascular: Denies: no symptoms, chest pain, edema, irregular heart rate, lightheadedness, palpitations, syncope, other Respiratory: Denies: no symptoms, cough, orthopnea, shortness of breath, SOB with excertion, SOB at rest, sputum, stridor, wheezing, other Genitourinary: Denies: no symptoms, burning, discharge, frequency, flank pain, hematuria, incontinence, pain, urgency, other Neurologic/Psychiatric: Denies: no symptoms, anxiety, depressed, emotional problems, headache, numbness, paresthesia, pre-existing deficit, seizure, tingling, tremors, weakness, other Endocrine: Denies: no symptoms, excessive sweating, flushing, intolerance to cold, intolerance to heat, increased hunger, increased thirst, increased urine, unexplained weight gain, unexplained weight loss, other Hematologic/Lymphatic: Denies: no symptoms, anemia, easy bleeding, easy bruising, other Allergies: Coded Allergies: No Known Allergies (Unverified , 12/09/13) Subjective seen and examined at bedside. Has no complaints[facility]ing down Objective Last 24 Hour Vital Signs Date Time Temp Pulse Resp B/P (MAP) Pulse Ox O2 Delivery O2 Flow Rate FiO2 08/08/19 04:00 97.9 59 18 111/52 (71) 96 08/08/19 04:00 60 08/08/19 00:00 98.7 57 18 113/47 (69) 98 08/08/19 00:00 53 08/07/19 21:00 Room Air 08/07/19 20:00 53 08/07/19 20:00 98.6 54 18 126/53 (77) 98 08/07/19 16:00 63 08/07/19 16:00 97.2 58 20 113/51 (71) 98 08/07/19 12:00 97.5 56 20 105/50 (68) 97 08/07/19 12:00 59 Intake and Output 08/07/19 08/08/19 19:00 07:00 Intake Total 120 ml 854 ml Output Total 650 ml 1100 ml Balance -530 ml -246 ml Intake Oral 120 ml 120 ml IV Total 734 ml Output Urine Total 650 ml 1100 ml Laboratory Tests 08/08/19 08:30: White Blood Count [Pending], Red Blood Count [Pending], Hemoglobin [Pending], Hematocrit [Pending], Mean Corpuscular Volume [Pending], Mean Corpuscular Hemoglobin [Pending], Mean Corpuscular Hemoglobin Concent [Pending], Red Cell Distribution Width [Pending], Platelet Count [Pending], Mean Platelet Volume [ Pending], Neutrophils (%) (Auto) [Pending], Lymphocytes (%) (Auto) [Pending], Monocytes (%) (Auto) [Pending], Eosinophils (%) (Auto) [Pending], Basophils (%) (Auto) [Pending], Sodium Level [Pending], Potassium Level [Pending], Chloride Level [Pending], Carbon Dioxide Level [Pending], Blood Urea Nitrogen [Pending], Creatinine [Pending], Estimat Glomerular Filtration Rate [Pending], Glucose Level [Pending], Uric Acid [Pending], Calcium Level [Pending], Phosphorus Level [Pending], Magnesium Level [Pending], Total Bilirubin [Pending], Aspartate Amino Transf (AST/SGOT) [Pending], Alanine Aminotransferase (ALT/SGPT) [Pending] , Alkaline Phosphatase [Pending], C-Reactive Protein, Quantitative [Pending], Pro-B-Type Natriuretic Peptide [Pending], Total Protein [Pending], Albumin [ Pending], Globulin [Pending] Height (Feet): 5 Height (Inches): 11.00 Weight (Pounds): 152 Objective General Appearance: WD/WN, no apparent distress, alert, confused EENT: PERRL/EOMI, normal ENT inspection Neck: non-tender, normal alignment, supple Cardiovascular: normal peripheral pulses, normal rate, regular rhythm, no JVD Respiratory/Chest: chest wall non-tender, lungs clear, normal breath sounds Abdomen: normal bowel sounds, non tender, soft, no organomegaly, no mass Extremities: normal range of motion, non-tender, normal inspection Edema: other - No lower extremity edema bilaterally Neurologic: slip cover cutter II-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 Aug 08, 2019 09:00
[2019-08-08 09:01] LABS: BASOPHILS % (AUTO) 1.1 % (0.0-2.0); EOSINOPHILS % (AUTO) 5.7 % (0.0-3.0); HEMATOCRIT 31.4 % (42.0-52.0); HEMOGLOBIN 10.5 G/DL (14.2-18.0); LYMPHOCYTES % (AUTO) 14.1 % (20.0-45.0); MEAN CORPUSCULAR VOLUME 89 FL (80-99); NEUTROPHILS % (AUTO) 73.1 % (45.0-75.0); PLATELET COUNT 129 K/UL (150-450); RED BLOOD COUNT 3.51 M/UL (4.70-6.10); WHITE BLOOD COUNT 8.1 K/UL (4.8-10.8)
[2019-08-08 09:25] LABS: ALANINE AMINOTRANSFERASE 14 U/L (12-78); ALBUMIN 2.5 G/DL (3.4-5.0); ALBUMIN/GLOBULIN RATIO 0.7 (1.0-2.7); ALKALINE PHOSPHATASE 82 U/L (46-116); ANION GAP 10 mmol/L (5-15); ASPARTATE AMINO TRANSFERASE 25 U/L (15-37); BILIRUBIN,TOTAL 0.7 MG/DL (0.2-1.0); BLOOD UREA NITROGEN 46 mg/dL (7-18); CALCIUM 8.6 MG/DL (8.5-10.1); CARBON DIOXIDE 25 MMOL/L (21-32); CHLORIDE 109 MMOL/L (98-107); PHOSPHORUS 3.1 MG/DL (2.5-4.9); POTASSIUM 3.4 MMOL/L (3.5-5.1); SODIUM 144 MMOL/L (136-145)
--- NOTE | 2019-08-08 09:43 | Nephrology Progress Note ---
Assessment/Plan Problem List: (1) Acute on chronic renal failure Assessment: Cr lowering (2) HTN (hypertension) (3) Pleural effusion (4) Diabetes Assessment Acute on chronic kidney disease, likely DM , HTN Kidney MILAGROS, no [place], but echogenic kidneys left lung pleural effusion vs Pneumonia elevated troponin Plan K supplement as needed Mag IV as needed slow hydrate UA Echo Left ventricular ejection fraction estimated to be 50 %. MILAGROS kidney - noted monitor renal parameters Flomax BS abd BP check CXR: Again seen is opacity within the mid to lower left lung which may represent pneumonia. Underlying mass is not excluded. Small bilateral pleural effusions. Subjective ROS Limited/Unobtainable: No Constitutional: Reports: malaise Objective Objective Last 24 Hour Vital Signs Date Time Temp Pulse Resp B/P (MAP) Pulse Ox O2 Delivery O2 Flow Rate FiO2 08/08/19 04:00 97.9 59 18 111/52 (71) 96 08/08/19 04:00 60 08/08/19 00:00 98.7 57 18 113/47 (69) 98 08/08/19 00:00 53 08/07/19 21:00 Room Air 08/07/19 20:00 53 08/07/19 20:00 98.6 54 18 126/53 (77) 98 08/07/19 16:00 63 08/07/19 16:00 97.2 58 20 113/51 (71) 98 08/07/19 12:00 97.5 56 20 105/50 (68) 97 08/07/19 12:00 59 Intake and Output 08/07/19 08/08/19 19:00 07:00 Intake Total 120 ml 854 ml Output Total 650 ml 1100 ml Balance -530 ml -246 ml Intake Oral 120 ml 120 ml IV Total 734 ml Output Urine Total 650 ml 1100 ml Laboratory Tests 08/08/19 08:30: White Blood Count 8.1, Red Blood Count 3.51L, Hemoglobin 10.5L, Hematocrit 31.4L , Mean Corpuscular Volume 89, Mean Corpuscular Hemoglobin 30.0, Mean Corpuscular Hemoglobin Concent 33.5, Red Cell Distribution Width 13.0, Platelet Count 129L, Mean Platelet Volume 6.3L, Neutrophils (%) (Auto) 73.1, Lymphocytes (%) (Auto) 14.1L, Monocytes (%) (Auto) 6.0, Eosinophils (%) (Auto) 5.7H, Basophils (%) (Auto) 1.1, Sodium Level 144, Potassium Level 3.4L, Chloride Level 109H, Carbon Dioxide Level 25, Anion Gap 10, Blood Urea Nitrogen 46H, Creatinine 3.0H, Estimat Glomerular Filtration Rate , Glucose Level 116H, Uric Acid 5.7, Calcium Level 8.6, Phosphorus Level 3.1, Magnesium Level 2.0, Total Bilirubin 0.7, Aspartate Amino Transf (AST/SGOT) 25, Alanine Aminotransferase ( ALT/SGPT) 14, Alkaline Phosphatase 82, C-Reactive Protein, Quantitative 3.9H, Pro-B-Type Natriuretic Peptide 3367H, Total Protein 6.3L, Albumin 2.5L, Globulin 3.8, Albumin/Globulin Ratio 0.7L Height (Feet): 5 Height (Inches): 11.00 Weight (Pounds): 152 General Appearance: no apparent distress Cardiovascular: normal rate Respiratory/Chest: decreased breath sounds Abdomen: soft Objective no change Bill Redman MD Aug 08, 2019 09:43
--- NOTE | 2019-08-08 09:55 | NUR ---
NURSE NOTES: Received patient from DENAE Rubio. Patient awake, talkative, and resting in bed comfortably. No signs of distress, shortness of breath, or pain noted. Patient is able to make needs known. IV site intact and patent. 0.45% NS running at 75 mL/hr. Bed in lowest position, brakes on, side rails up x3, and call light within reach. Will continue with the plan of care.
[2019-08-08] MEDS ORDERED: Nitroglycerin Patch 0.4mg TDERMAL SCH (10:00)
[2019-08-08 10:16] LABS: FERRITIN 373 NG/ML (8-388)
[2019-08-08 10:45] LABS: % IRON SATURATION 29 % (15-50); IRON 41 ug/dL (50-175); TOTAL IRON BINDING CAPACITY 141 ug/dL (250-450)
--- NOTE | 2019-08-08 11:49 | NUR ---
CASE MANAGEMENT: REVIEW 08/08/19 SI:RENAL FAILURE; PLEURAL EFFUSION; HTN 97.9 59 18 111/52 96% ON RA K+ 3.4; RBC 3.51; H/H 10.5/ 31.4; BUN 46; CREAT 3.0 C-REC PROT 3.9; BNP 3367; IS: K-DUR PO QD IVF NS @75HR IV CEFEPIME Q24HR FLAGYL PO Q8HR PROTONIX PO QD NTG TD Q24HR LIPITOR PO HS COREG PO Q12HR FOLATE PO QD STARLIX PO TID FLOMAX PO BID COLACE PO TID ALLOPURINOL PO QD NAMENDA PO BID ASPIRIN PO QD :DOWNGRADE TO MED SURG STATUS DCP: TO [facility] ONCE MEDICALLY CLEARED
[2019-08-08 12:00] VITALS: BP 132/67
--- NOTE | 2019-08-08 14:33 | NUR ---
*-* INSURANCE *-* ALL CLINICALS AND REVIEWS HAVE BEEN FAXED TO: TANISHA Odonnell Ref#[id number]
[2019-08-08] MEDS: Cefepime 1gm/D5W 55ml IVPB SCH ×2 (14:44)
--- NOTE | 2019-08-08 16:03 | NUR ---
RD ASSESSMENT & RECOMMENDATIONS SEE CARE ACTIVITY FOR COMPLETE ASSESSMENT DAILY ESTIMATED NEEDS: Needs based on DM, ARF/ 68kg 25-30 kcals/kg 7847-0927 total kcals 0.8-1.0 g protein/kg 54-68 g total protein 25-30 mL/kg 3806-5026 total fluid mLs NUTRITION DIAGNOSIS: Altered nutrition related lab values R/T ARF on CKD as evidenced by elev creat 4.5 -> 3.0 trending down, low K (3.4), elev BNP (3367) CURRENT DIET:[facility] MED, [facility] soft ground PO DIET RECOMMENDATIONS: LOW NA, CCHO MED/ texture per CURING ROOM SUPERVISOR ADDITIONAL RECOMMENDATIONS: * Calibrated bedscale wt for accurate CBW * Glucerna BID w/ meals * CURING ROOM SUPERVISOR evaluation for appropriate texture * MVI x 1 as supplement * Monitor PO intake closely- variable and poor at this time .
--- NOTE | 2019-08-08 16:30 | NUR ---
NURSE NOTES: Transferred patient from Tele rm [id number] to [facility] floor rm [id number]. Patient is in stable condition. Report given to Aaron PHILIPPE. All belongings acknowledged and signed by both nurses. quality assurance monitor body removed. All orders transferred. IV is intact and patent.
--- NOTE | 2019-08-08 16:39 | NUR ---
NURSE NOTES: Patient on floor.
[2019-08-08 16:56] VITALS: BP 115/55
--- NOTE | 2019-08-08 16:57 | NUR ---
NURSE NOTES: Vitals stable in normal range.
--- NOTE | 2019-08-08 17:47 | Cardiac Electrophysiology PN ---
Assessment/Plan Assessment/Plan 1. Ischemic cardiomyopathy, EF 40 to 45%. Off Coreg as was migdalia down to 30s. On lisinopril 2. Tropoin leak and history of CABG on aspirin, Lipitor. DC Coreg. No CP. 3. Paroxysmal atrial fibrillation, remained in sinus rhythm, first-degree AV block. Off anticoagulation and was off even at the [facility] 4. Hyperlipidemia on Lipitor. 5. Urinary tract infection. 6. Hospital-acquired pneumonia. DARON RN Subjective Subjective Comfortable in NAD. No CP or SOB. Transferred to NMB. Pleasantly confused. Objective Last 24 Hour Vital Signs Date Time Temp Pulse Resp B/P (MAP) Pulse Ox O2 Delivery O2 Flow Rate FiO2 08/08/19 16:56 97.1 65 18 115/55 (75) 94 08/08/19 12:00 98.2 59 19 132/67 (88) 98 08/08/19 12:00 59 08/08/19 10:35 125/60 08/08/19 09:00 Room Air 08/08/19 08:00 98.5 64 19 125/60 (81) 98 08/08/19 08:00 64 08/08/19 04:00 97.9 59 18 111/52 (71) 96 08/08/19 04:00 60 08/08/19 00:00 98.7 57 18 113/47 (69) 98 08/08/19 00:00 53 08/07/19 21:00 Room Air 08/07/19 20:00 53 08/07/19 20:00 98.6 54 18 126/53 (77) 98 Intake and Output 08/07/19 08/08/19 19:00 07:00 Intake Total 120 ml 854 ml Output Total 650 ml 1100 ml Balance -530 ml -246 ml Intake Oral 120 ml 120 ml IV Total 734 ml Output Urine Total 650 ml 1100 ml Laboratory Tests Test 08/08/19 08:30 White Blood Count 8.1 K/UL (4.8-10.8) Red Blood Count 3.51 M/UL (4.70-6.10) L Hemoglobin 10.5 G/DL (14.2-18.0) L Hematocrit 31.4 % (42.0-52.0) L Mean Corpuscular Volume 89 FL (80-99) Mean Corpuscular Hemoglobin 30.0 PG (27.0-31.0) Mean Corpuscular Hemoglobin Concent 33.5 G/DL (32.0-36.0) Red Cell Distribution Width 13.0 % (11.6-14.8) Platelet Count 129 K/UL (150-450) L Mean Platelet Volume 6.3 FL (6.5-10.1) L Neutrophils (%) (Auto) 73.1 % (45.0-75.0) Lymphocytes (%) (Auto) 14.1 % (20.0-45.0) L Monocytes (%) (Auto) 6.0 % (1.0-10.0) Eosinophils (%) (Auto) 5.7 % (0.0-3.0) H Basophils (%) (Auto) 1.1 % (0.0-2.0) Sodium Level 144 MMOL/L (136-145) Potassium Level 3.4 MMOL/L (3.5-5.1) L Chloride Level 109 MMOL/L (98-107) H Carbon Dioxide Level 25 MMOL/L (21-32) Anion Gap 10 mmol/L (5-15) Blood Urea Nitrogen 46 mg/dL (7-18) H Creatinine 3.0 MG/DL (0.55-1.30) H Estimat Glomerular Filtration Rate mL/min (>60) Glucose Level 116 MG/DL (74-106) H Uric Acid 5.7 MG/DL (2.6-7.2) Calcium Level 8.6 MG/DL (8.5-10.1) Phosphorus Level 3.1 MG/DL (2.5-4.9) Magnesium Level 2.0 MG/DL (1.8-2.4) Iron Level 41 ug/dL (50-175) L Total Iron Binding Capacity 141 ug/dL (250-450) L Percent Iron Saturation 29 % (15-50) Unsaturated Iron Binding 100 ug/dL (112-346) L Ferritin 373 NG/ML (8-388) Total Bilirubin 0.7 MG/DL (0.2-1.0) Aspartate Amino Transf (AST/SGOT) 25 U/L (15-37) Alanine Aminotransferase (ALT/SGPT) 14 U/L (12-78) Alkaline Phosphatase 82 U/L (46-116) C-Reactive Protein, Quantitative 3.9 mg/dL (0.00-0.90) H Pro-B-Type Natriuretic Peptide 3367 pg/mL (0-125) H Total Protein 6.3 G/DL (6.4-8.2) L Albumin 2.5 G/DL (3.4-5.0) L Globulin 3.8 g/dL Albumin/Globulin Ratio 0.7 (1.0-2.7) L Vitamin B12 Level 855 PG/ML (193-986) Folate 89.4 NG/ML (8.6-58.9) H Objective HEAD AND NECK: No JVD or carotid bruits. LUNGS: Clear. CARDIOVASCULAR: Regular S1 and S2 with no gallop or murmur. Sternotomy intact ABDOMEN: Soft and nontender. EXTREMITIES: No pitting edema. Sixto Wiggins MD Aug 08, 2019 17:47
--- NOTE | 2019-08-08 19:18 | NUR ---
HAND-OFF: Report given to RN Minsu.
--- NOTE | 2019-08-08 19:23 | NUR ---
NURSE NOTES: Received report from DENAE Walker. Patient awake and verbally responsive to let his needs known. Upset due to placement issue. Patient desires to speak to elementary school social worker. Will endorse to the dayshift. Breathing unlabored on room air without distress. IV noted on the right hand 22g intact and patent. Bed placed at the lowest with alarm, brake, and siderails up for safety. Call light placed within reach. Will continue to monitor and provide care as ordered.
[2019-08-08 20:00] VITALS: BP 123/66
[2019-08-08] MEDS ORDERED: Atorvastatin 20mg tab ORAL SCH (21:00)
--- NOTE | 2019-08-08 23:50 | NUR ---
NURSE NOTES: Medical packet from the facility wrote stage II wound on sacral. Checked and took pictures of the area of concern. Will continue to monitor. Placed ppx optifoam on sacral.
[2019-08-09] VITALS: BP 130/61
[2019-08-09 04:00] VITALS: BP 133/66
--- NOTE | 2019-08-09 05:39 | NUR ---
HAND-OFF: Report given to DENAE Silveira.
[2019-08-09] MEDS: metroNIDAZOLE 500mg tab ORAL SCH ×3 (06:00→14:59)
--- NOTE | 2019-08-09 07:30 | NUR ---
HAND-OFF: Report given to Mariana PHILIPPE.
[2019-08-09 08:00] VITALS: BP 143/75
--- NOTE | 2019-08-09 08:05 | NUR ---
NURSE NOTES: pt is awake and talking. Pt call light is within reach. Bed is lock and in lowest position. pt. refused morning labs. Will continue to follow plans of care.
[2019-08-09] MEDS ORDERED: Aspirin EC 81mg tab ORAL SCH (09:00)
[2019-08-09] MEDS ORDERED: Allopurinol 100mg Tab ORAL SCH (09:00)
[2019-08-09] MEDS: Heparin 5000 units/ml inj SUBQ SCH (09:00)
[2019-08-09] MEDS ORDERED: Nitroglycerin Patch 0.4mg TDERMAL SCH (10:00)
[2019-08-09] MEDS: Nateglinide 60mg tab ORAL SCH ×3 (10:04→18:14)
[2019-08-09] MEDS: Tamsulosin 0.4mg cap ORAL SCH ×2 (10:06→18:14)
[2019-08-09] MEDS: Memantine 10mg tab ORAL SCH ×2 (10:07→18:13)
[2019-08-09] MEDS: Docusate 100mg cap ORAL SCH ×3 (10:07→18:14)
--- NOTE | 2019-08-09 10:18 | Nephrology Progress Note ---
Assessment/Plan Problem List: (1) Acute on chronic renal failure Assessment: Cr lowering (2) HTN (hypertension) (3) Pleural effusion (4) Diabetes Assessment Acute on chronic kidney disease, likely DM , HTN Kidney MILAGROS, no [place], but echogenic kidneys left lung pleural effusion vs Pneumonia elevated troponin Plan today's labs pending K supplement as needed Mag IV as needed slow hydrate UA Echo Left ventricular ejection fraction estimated to be 50 %. MILAGROS kidney - noted monitor renal parameters Flomax BS abd BP check CXR: Again seen is opacity within the mid to lower left lung which may represent pneumonia. Underlying mass is not excluded. Small bilateral pleural effusions. Subjective ROS Limited/Unobtainable: No Objective Objective Last 24 Hour Vital Signs Date Time Temp Pulse Resp B/P (MAP) Pulse Ox O2 Delivery O2 Flow Rate FiO2 08/09/19 10:08 143/75 08/09/19 04:00 98.1 77 19 133/66 (88) 99 08/09/19 00:00 98.1 63 19 130/61 (84) 99 08/08/19 21:00 Room Air 08/08/19 20:00 98.1 80 19 123/66 (85) 99 08/08/19 16:56 97.1 65 18 115/55 (75) 94 08/08/19 12:00 98.2 59 19 132/67 (88) 98 08/08/19 12:00 59 08/08/19 10:35 125/60 Intake and Output 08/08/19 08/09/19 18:59 06:59 Intake Total 510 ml 1185 ml Output Total 1100 ml Balance 510 ml 85 ml Intake Oral 360 ml 360 ml IV Total 150 ml 825 ml Output Urine Total 1100 ml # Voids 3 3 # Bowel Movements 1 3 Height (Feet): 5 Height (Inches): 11.00 Weight (Pounds): 152 General Appearance: confused Respiratory/Chest: lungs clear Abdomen: soft Objective no change Bill Redman MD Aug 09, 2019 10:18
--- NOTE | 2019-08-09 10:30 | NUR ---
NURSE NOTES: pt is refusing labs for the 2nd time today. We will try at a later time with a female tech.
--- NOTE | 2019-08-09 10:33 | General Progress Note ---
Assessment/Plan Problem List: (1) Depression ICD Codes: F32.9 - Depression SNOMED: 36648718 (2) Diabetes ICD Codes: E11.9 - Diabetes SNOMED: 45157687 (3) Atrial fibrillation ICD Codes: I48.91 - Unspecified atrial fibrillation SNOMED: 37447265 (4) CAD (coronary artery disease) ICD Codes: I25.10 - Atherosclerotic heart disease of [place] coronary artery without angina pectoris SNOMED: 81869207 (5) Elevated troponin ICD Codes: R79.89 - Other specified abnormal findings of blood chemistry SNOMED: 733284428, 819866204, 280948955 (6) HTN (hypertension) ICD Codes: I10 - HTN (hypertension) SNOMED: 59156456 (7) HAP (hospital-acquired pneumonia) ICD Codes: J18.9 - Pneumonia, unspecified organism; Y95 - Nosocomial condition SNOMED: 941462210 (8) Acute on chronic renal failure ICD Codes: N17.9 - Acute kidney failure, unspecified; N18.9 - Chronic kidney disease, unspecified SNOMED: 207544155 Qualifiers: Qualified Codes: N17.9 - Acute kidney failure, unspecified; N18.9 - Chronic kidney disease, unspecified (9) Sepsis ICD Codes: A41.9 - Sepsis, unspecified organism SNOMED: 38344497 (10) Metabolic encephalopathy ICD Codes: G93.41 - Metabolic encephalopathy SNOMED: 53299927 (11) History of COPD ICD Codes: Z87.09 - Personal history of other diseases of the respiratory system SNOMED: 687607176 Status: progressing Assessment/Plan: 84 yo man with PMH of IDDM (type II), CKD (creatinine ~1.6 baseline), HTN, HLD, COPD (not on home O2), CHF (unknown EF), dementia (AAOx1-2 at baseline), Afib ( not on A/C), CAD, GERD, and iron deficiency anemia who presented from [facility] with acute on chronic renal failure, NSTEMI type 2, Sepsis #Acute on chronic renal failure. Suspect prerenal. Do not suspect cardiorenal as patient is euvolemic on exam. Could have urinary retention but bladder scan not performed prior to insertion of sommers. Slowly improving. refusing labs today -telemetry--> sinus migdalia, 1st degree AV block -Appreciate nephrology consultation: Dr. Vinnie Serrano for strict I's and O's -Renal ultrasound, no hydronephrosis, has echogenic kidneys -Avoid nephrotoxins -hold lasix -s/p Gentle normal saline IV 500 cc -Hematuria- UA sent -Hypokalemia-> judicious with replacement due to renal failure -Magnesium-> replace as needed #NSTEMI, suspect type 2 due to demand ischemia -Continue to trend troponins until plateaued. down trending . Denies any chest pain. -Appreciate cardiology recommendations: Dr. Wiggins #Sepsis (Leukocytosis, AMS). 2/2 possible HCAP. -Obtain CT chest to further evaluate Left lung mass -Blood cultures x2 - negative to date -Sputum culture, induced, don't see any collected -Vancomycin per pharmacy (08/04/19 - ) -Cefepime (08/04/19- ) -Flagyl (08/04/19 - ) - De-escalate pending cultures #Systolic heart failure, compensated. EF 40-45% Differential includes ischemic, versus tachycardia induced, versus cardiomyopathy #hx HTN, HLD #hx Afib not on A/C #hx CAD -Appreciate cardiology recommendations: Dr. Wiggins -Monitor on telemetry -Lisinopril 10 mg p.o. daily -Aspirin 81 mg p.o. daily -Atorvastatin 40 mg p.o. nightly -Coreg 3.125 every 12 hours #Metabolic Encephalopathy #hx dementia (baseline AAOx1-2 and conversant) > EEG negative - Treatment for infections as per above - CT head without acute findings - Resume home memantine 10mg PO BID #hx GERD - Continue home protonix 40mg IV daily. Can change to PO once mental status improves #hx IDDM - Last A1C 6.8 from 05/2019 [facility] records - On lantus 23U qhs at SNF - levemir 5U qhs - SSI lispro QACHS and monitor FS #Iron def anemia - Resume home ferrous sulfate 325mg PO BID once infection treated FENPPX DVTPPX: heparin sbq GI PPX: protonix Fluids: 500 cc bolus today Diet: regular Lines: peripheral PT/OT: pending Code status: full Dispo: Back to snf Reason for Continued Hospitalization: Acute renal failure- patient can be discharged if okay with nephrology. d/w Dr. Redman and upper caser 38 minutes spent on this encounter. Discussed with RN, patient, cardiology, and nephrology . > 50% spent on counseling and care coordination. I spent an additional 31 minutes in reviewing patient's chart and old records Time of note may not reflect time patient was seen. Subjective Date patient seen: Aug 09, 2019 ROS Limited/Unobtainable: No Constitutional: Denies: no symptoms, chills, diaphoresis, fever, malaise, weakness, other HEENT: Denies: no symptoms, eye pain, blurred vision, tearing, double vision, ear pain, ear discharge, nose pain, nose congestion, throat pain, throat swelling, mouth pain, mouth swelling, other Cardiovascular: Denies: no symptoms, chest pain, edema, irregular heart rate, lightheadedness, palpitations, syncope, other Respiratory: Denies: no symptoms, cough, orthopnea, shortness of breath, SOB with excertion, SOB at rest, sputum, stridor, wheezing, other Gastrointestinal/Abdominal: Denies: no symptoms, abdomen distended, abdominal pain, black stools, tarry stools, blood in stool, constipated, diarrhea, difficulty swallowing, nausea, poor appetite, poor fluid intake, rectal bleeding , vomiting, other Genitourinary: Denies: no symptoms, burning, discharge, frequency, flank pain, hematuria, incontinence, pain, urgency, other Neurologic/Psychiatric: Denies: no symptoms, anxiety, depressed, emotional problems, headache, numbness, paresthesia, pre-existing deficit, seizure, tingling, tremors, weakness, other Endocrine: Denies: no symptoms, excessive sweating, flushing, intolerance to cold, intolerance to heat, increased hunger, increased thirst, increased urine, unexplained weight gain, unexplained weight loss, other Hematologic/Lymphatic: Denies: no symptoms, anemia, easy bleeding, easy bruising, other Allergies: Coded Allergies: No Known Allergies (Unverified , 12/09/13) Subjective seen and examined at bedside. Has no complaints[facility]ing [facility], however is refusing labs today. Objective Last 24 Hour Vital Signs Date Time Temp Pulse Resp B/P (MAP) Pulse Ox O2 Delivery O2 Flow Rate FiO2 08/09/19 10:08 143/75 08/09/19 04:00 98.1 77 19 133/66 (88) 99 08/09/19 00:00 98.1 63 19 130/61 (84) 99 08/08/19 21:00 Room Air 08/08/19 20:00 98.1 80 19 123/66 (85) 99 08/08/19 16:56 97.1 65 18 115/55 (75) 94 08/08/19 12:00 98.2 59 19 132/67 (88) 98 08/08/19 12:00 59 08/08/19 10:35 125/60 Intake and Output 08/08/19 08/09/19 18:59 06:59 Intake Total 510 ml 1185 ml Output Total 1100 ml Balance 510 ml 85 ml Intake Oral 360 ml 360 ml IV Total 150 ml 825 ml Output Urine Total 1100 ml # Voids 3 3 # Bowel Movements 1 3 Height (Feet): 5 Height (Inches): 11.00 Weight (Pounds): 152 Objective General Appearance: WD/WN, no apparent distress, alert, confused EENT: PERRL/EOMI, normal ENT inspection Neck: non-tender, normal alignment, supple Cardiovascular: normal peripheral pulses, normal rate, regular rhythm, no JVD Respiratory/Chest: chest wall non-tender, lungs clear, normal breath sounds Abdomen: normal bowel sounds, non tender, soft, no organomegaly, no mass Extremities: normal range of motion, non-tender, normal inspection Edema: other - No lower extremity edema bilaterally Neurologic: plant facilities technician II-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 Aug 09, 2019 10:33
--- NOTE | 2019-08-09 10:35 | Cardiac Electrophysiology PN ---
Assessment/Plan Assessment/Plan 1. Ischemic cardiomyopathy, EF 40 to 45%. Off Coreg as was migdalia down to 30s. On lisinopril 2. Tropoin leak and history of CABG on aspirin, Lipitor. Off Coreg. No CP. 3. Paroxysmal atrial fibrillation, remained in sinus rhythm, first-degree AV block. Off anticoagulation and was off even at the [facility] 4. Hyperlipidemia on Lipitor. 5. Urinary tract infection. 6. Hospital-acquired pneumonia. DARON RN Subjective Subjective Comfortable in NAD on NMB. Objective Last 24 Hour Vital Signs Date Time Temp Pulse Resp B/P (MAP) Pulse Ox O2 Delivery O2 Flow Rate FiO2 08/09/19 10:08 143/75 08/09/19 04:00 98.1 77 19 133/66 (88) 99 08/09/19 00:00 98.1 63 19 130/61 (84) 99 08/08/19 21:00 Room Air 08/08/19 20:00 98.1 80 19 123/66 (85) 99 08/08/19 16:56 97.1 65 18 115/55 (75) 94 08/08/19 12:00 98.2 59 19 132/67 (88) 98 08/08/19 12:00 59 Intake and Output 08/08/19 08/09/19 18:59 06:59 Intake Total 510 ml 1185 ml Output Total 1100 ml Balance 510 ml 85 ml Intake Oral 360 ml 360 ml IV Total 150 ml 825 ml Output Urine Total 1100 ml # Voids 3 3 # Bowel Movements 1 3 Objective HEAD AND NECK: No JVD or carotid bruits. LUNGS: Clear. CARDIOVASCULAR: Regular S1 and S2 with no gallop or murmur. Sternotomy intact ABDOMEN: Soft and nontender. EXTREMITIES: No pitting edema. Sixto Wiggins MD Aug 09, 2019 10:35
[2019-08-09 12:00] VITALS: BP 120/73
--- NOTE | 2019-08-09 12:30 | NUR ---
CASE MANAGEMENT: REVIEW 08/09/19 SI:RENAL FAILURE; PLEURAL EFFUSION; HTN; DM 98.7 87 19 143/75 98% ON RA PATIENT REFUSED LABS THIS AM IS: K-DUR PO QD IVF NS @75HR IV CEFEPIME Q24HR FLAGYL PO Q8HR PROTONIX PO QD NTG TD Q24HR LIPITOR PO HS COREG PO Q12HR ASPIRIN PO QD FOLATE PO QD STARLIX PO TID FLOMAX PO BID COLACE PO TID ALLOPURINOL PO QD NAMENDA PO BID :4E MED SURG STATUS DCP: TO [facility] ONCE MEDICALLY CLEARED
[2019-08-09] MEDS ORDERED: Cefepime HCl 1 GM in D5W 55 ML IVPB SCH (15:00)
[2019-08-09] MEDS ORDERED: 1/2 NS 1000ml IV ONE (15:15)
--- NOTE | 2019-08-09 15:30 | NUR ---
NURSE NOTES: changed sacral protective optifoam dressing and applied barrier cream to already healed sacral area.
--- NOTE | 2019-08-09 15:31 | NUR ---
DISCHARGED PLANNED: DISCUSSED DISCHARGE AT BEDSIDE WITH PATIENT PATIENT RETURN TO [facility] T:[phone] FOR NURSE TO NURSE REPORT ROOM#121A [facility] PICKUP TIME @1730 LEFT A MESSAGE WITH RIBBON BLOCKER [employer]A PACKER TO INFORM OF RETURN TO FACILITY T:[phone] T:[phone] Addendum: 08/09/19 at 1550 by WENDY BLANCA LVN SPOKE TO [facility] IN ADMISSION ABOUT DISCHARGE ANY ISSUES PLEASE CALL DER[facility]
[2019-08-09 16:00] VITALS: BP 120/70
[2019-08-09] MEDS ORDERED: FLOMAX0.4 MG ORAL (17:05)
--- NOTE | 2019-08-09 17:07 | Discharge Instructions ---
Discharge Instructions Discharge Instructions Diet: diabetic calorie control Follow Up Orders patient needs weekly BMP to follow creatinine. For Congestive Heart Failure Reminder Report to your physician any weight gain of 5 pounds or more in one week. Oskar Davila M.D. Aug 09, 2019 17:06
--- NOTE | 2019-08-09 17:13 | Discharge Summary ---
Discharge Summary Hospital Course Date of Admission Aug 03, 2019 at 20:10 Date of Discharge 08/09/2019 Admitting Diagnosis RENAL FAILURE HPI Edy Dubon is a 84 year old male who was admitted on Aug 03, 2019 at 20:10 for Renal Failure Consultations Cardiology, nephrology Hospital Course 84 yo man with PMH of IDDM (type II), CKD (creatinine ~1.6 baseline), HTN, HLD, COPD (not on home O2), CHF (EF 50%), dementia (AAOx1-2 at baseline), Afib (not on A/C), CAD, GERD, and iron deficiency anemia who presented from [facility] with acute on chronic renal failure, NSTEMI type 2, Sepsis #Acute on chronic renal failure. Suspect prerenal. Do not suspect cardiorenal as patient is euvolemic on exam. Could have urinary retention but bladder scan not performed prior to insertion of sommers. Slowly improving. Last Cr: 3.0 -telemetry--> sinus migdalia, 1st degree AV block -Appreciate nephrology consultation: Dr. Vinnie Serrano for strict I's and O's -Renal ultrasound, no hydronephrosis, has echogenic kidneys -Avoid nephrotoxins -hold lasix -s/p Gentle normal saline IV 500 cc -Hematuria- UA sent -Hypokalemia-> judicious with replacement due to renal failure -Magnesium-> replace as needed #NSTEMI, suspect type 2 due to demand ischemia -Continue to trend troponins until plateaued. down trending . Denies any chest pain. -Appreciate cardiology recommendations: Dr. Wiggins #Sepsis (Leukocytosis, AMS). 2/2 possible HCAP. -Blood cultures x2 - negative to date -Sputum culture, induced -Vancomycin per pharmacy -Cefepime (08/04/19- 08/09/19) -Flagyl (08/04/19 - 08/09/19) #Systolic heart failure, compensated. EF 40-45% Differential includes ischemic, versus tachycardia induced, versus cardiomyopathy #hx HTN, HLD #hx Afib not on A/C #hx CAD -Appreciate cardiology recommendations: Dr. Wiggins -Monitor on telemetry -Lisinopril 10 mg p.o. daily- holding due to KELLEN -Aspirin 81 mg p.o. daily -Atorvastatin 40 mg p.o. nightly -Coreg 3.125 every 12 hours- holding due to bradycardia #Metabolic Encephalopathy #hx dementia (baseline AAOx1-2 and conversant) > EEG negative - Treatment for infections as per above - CT head without acute findings - Resume home memantine 10mg PO BID #hx GERD - Continue home protonix 40mg #hx IDDM - Last A1C 6.8 from 05/2019 [facility] records - On lantus 23U qhs at SNF - levemir 5U qhs - SSI lispro QACHS and monitor FS #Iron def anemia - Resume home ferrous sulfate 325mg PO BID once infection treated FENPPX DVTPPX: heparin sbq GI PPX: protonix Fluids: 500 cc bolus today Diet: regular Lines: peripheral PT/OT: pending Code status: full Dispo: Back to snf, [facility] Reason for Continued Hospitalization: Acute renal failure- patient can be discharged if okay with nephrology. d/w Dr. Redman and director of casework On the day of discharge on exam he is alert, awake, conversant. Lung: cta bl, cvs: s1s2, extremities: No edema 35 minutes spent on this encounter. Discussed with RN, patient, cardiology, and nephrology . > 50% spent on counseling and care coordination. Time of note may not reflect time patient was seen. Discharge Medications New Medications: Tamsulosin HCl (Flomax) 0.4 Mg Cap.er.24h 0.4 MG ORAL BID for 30 Days, #60 CAP Continued Medications: Acetaminophen* (Acetaminophen*) 160 Mg/5 Ml Solution 650 MG ORAL Q6H PRN for Mild Pain/Temp > 100.5, ML Allopurinol* (Allopurinol*) 100 Mg Tablet 100 MG ORAL DAILY, TAB Aspirin Ec* (Aspirin Ec*) 81 Mg Tablet.dr 81 MG ORAL DAILY, TAB Cranberry Fruit (Cranberry) 450 Mg Tablet 450 MG PO DAILY, TAB Docusate Sodium* (Docusate Sodium*) 100 Mg Capsule 100 MG ORAL TWICE A DAY, CAP Ferrous Sulfate* (Ferrous Sulfate*) 325 Mg Tablet 325 MG ORAL TWICE A DAY, #60 TAB 0 Refills Fluticasone Propionate (Flovent Hfa) 10.6 Gm Aer.w.adap 1 PUFFS INH BID, #1 EA 0 Refills Folic Acid* (Folic Acid*) 1 Mg Tablet 1 MG ORAL DAILY, TAB Insulin Glargine (Lantus) 100 Unit/1 Ml Insuln.pen 23 UNITS SUBQ DAILY, #1 EA 0 Refills Ipratropium Morgan (Ipratropium [place]) 15 Ml [place] 2 SPR NS THREE TIMES A DAY, SPRAY Melatonin (Melatonin 5 Mg Tablet) 1 Each Tablet 1 TAB ORAL BEDTIME, TAB Memantine Hcl* (Namenda*) 10 Mg Tablet 10 MG ORAL TWICE A DAY, TAB Nateglinide* (Starlix*) 60 Mg Tablet 60 MG ORAL THREE TIMES A DAY, TAB Pantoprazole* (Pantoprazole*) 40 Mg Tablet.dr 40 MG ORAL DAILY, TAB Rosuvastatin Calcium* (Crestor*) 10 Mg Tablet 10 MG ORAL DAILY, TAB Discontinued Medications: Carvedilol (Coreg) 3.125 Mg Tablet 3.125 MG ORAL EVERY 12 HOURS for 30 Days, #30 TAB Furosemide* (Lasix*) 20 Mg Tablet 20 MG ORAL DAILY, TAB Lisinopril* (Zestril*) 10 Mg Tablet 10 MG ORAL DAILY for 30 Days, #30 TAB Discharge Condition Upon Discharge: improving Discharge Disposition Patient was discharged to rehab of [facility] Discharge Diagnoses: (1) Atrial fibrillation (2) Acute respiratory failure (3) Pneumonia (4) Diabetes (5) Acute renal failure (6) Elevated troponin (7) HTN (hypertension) (8) Sepsis (9) HAP (hospital-acquired pneumonia) (10) CAD (coronary artery disease) (11) Depression (12) Metabolic encephalopathy (13) Acute on chronic renal failure Oskar Davila M.D. Aug 09, 2019 17:13
--- NOTE | 2019-08-09 17:30 | NUR ---
NURSE NOTES: gave report to Noelle at [facility]. pt will be going back to room 121A
--- NOTE | 2019-08-09 17:37 | NUR ---
NURSE NOTES: Notified [facility] poultry process worker at [phone] pt will be getting DC back to [facility] today.
--- NOTE | 2019-08-09 19:27 | NUR ---
HAND-OFF: Report given to Jessica/RN pt will be DC today, nurse to DC IV, fill out belonging sheet and go over DC instruction.
--- NOTE | 2019-08-09 19:32 | NUR ---
NURSE NOTES: Received patient in no apparent distress. A&Ox2 with confusion, forgetful. IV site patent and intact. Patient is waiting for discharge to [facility]. Bed in lowest position. Call light within reach. Will continue to monitor.
[2019-08-09 20:51] VITALS: BP 133/73
--- NOTE | 2019-08-09 20:55 | NUR ---
NURSE NOTES: Patient discharged to [facility] with stable condition. IV and ID band removed. All belongings were sent with the patient. Ambulance staff picked up the patient via gurney.
== END 2019-08-09 20:55 | DRG 720 ==
LOC: EDBD 17:45 → EDBEDREQ 18:08 → EMR 18:52 → EDBEDREQ 20:05 → 2E 20:10 → 4E 08-08 16:42
DX: A41.9 Sepsis, unspecified organism (principal); J96.00 Acute respiratory failure, unspecified whether with hypoxia or hypercapnia; N17.9 Acute kidney failure, unspecified; J18.9 Pneumonia, unspecified organism; Y95 Nosocomial condition; N18.9 Chronic kidney disease, unspecified; J90 Pleural effusion, not elsewhere classified; G93.41 Metabolic encephalopathy; I25.5 Ischemic cardiomyopathy; I48.0 Paroxysmal atrial fibrillation; F03.90 Unspecified dementia, unspecified severity, without behavioral disturbance, psychotic disturbance, mood disturbance, and anxiety; I21.A1 Myocardial infarction type 2; I13.0 Hypertensive heart and chronic kidney disease with heart failure and stage 1 through stage 4 chronic kidney disease, or unspecified chronic kidney disease; I50.22 Chronic systolic (congestive) heart failure; D50.9 Iron deficiency anemia, unspecified; N39.0 Urinary tract infection, site not specified; E11.22 Type 2 diabetes mellitus with diabetic chronic kidney disease; I25.10 Atherosclerotic heart disease of native coronary artery without angina pectoris; K21.9 Gastro-esophageal reflux disease without esophagitis; F32.9 Major depressive disorder, single episode, unspecified; Z95.1 Presence of aortocoronary bypass graft
CPT/HCPCS: 36415; 71045; 71250; 76770; 80048; 80053; 80061; 80076; 80202; 81001; 82550; 82570; 82607; 82728; 82746; 83036; 83540; 83550; 83605; 83735; 83880; 84100; 84300; 84443; 84484; 84550; 85007; 85025; 86140; 87040; 87070; 87081; 87205; 89050; 93005; 93306; 96365; 99285; J8499

== ENCOUNTER 2019-12-03 19:37 | Inpatient (IN) | payer MEDICARE, MEDICAID ==
[~2019-12-03] VITALS: Ht 165.1 cm; Wt 64.0 kg
[~2019-12-03 19:37] MED LIST changes: +FLOMAX0.4 MG ORAL
[2019-12-03 19:45] VITALS: BP 107/58
--- NOTE | 2019-12-03 19:48 | NUR ---
ED Nurse Note: Pt brought in by ambulance from [facility], staff reporting High BUN and creatine as well as decreased appetite, pt denies pain. Pt is A&Ox2
[2019-12-03] MEDS ORDERED: ZOFRAN4 M3 ORAL (20:00)
[2019-12-03] MEDS ORDERED: Pantoprazole Inj IV ONE (20:00)
--- NOTE | 2019-12-03 20:15 | NUR ---
ED Nurse Note: Pt has redness noted on sacral region. skin intak
[2019-12-03 20:33] LABS: HEMATOCRIT 32.7 % (42.0-52.0); HEMOGLOBIN 10.5 G/DL (14.2-18.0); MEAN CORPUSCULAR VOLUME 93 FL (80-99); PLATELET COUNT 130 K/UL (150-450); RED BLOOD COUNT 3.52 M/UL (4.70-6.10); RED CELL DISTRIBUTION WIDTH 14.1 % (11.6-14.8); WHITE BLOOD COUNT 9.8 K/UL (4.8-10.8)
[2019-12-03 20:34] LABS: BASOPHILS % (AUTO) 0.5 % (0.0-2.0); EOSINOPHILS % (AUTO) 1.3 % (0.0-3.0); LYMPHOCYTES % (AUTO) 8.5 % (20.0-45.0); MONOCYTES % (AUTO) 4.2 % (1.0-10.0); NEUTROPHILS % (AUTO) 85.6 % (45.0-75.0)
[2019-12-03 20:40] LABS: ANION GAP 16 mmol/L (5-15); BLOOD UREA NITROGEN 50 mg/dL (7-18); CALCIUM 8.9 MG/DL (8.5-10.1); CARBON DIOXIDE 18 MMOL/L (21-32); CHLORIDE 112 MMOL/L (98-107); POTASSIUM 4.1 MMOL/L (3.5-5.1); SODIUM 146 MMOL/L (136-145)
[2019-12-03 20:44] LABS: ALANINE AMINOTRANSFERASE 38 U/L (12-78); ALBUMIN 2.3 G/DL (3.4-5.0); ALBUMIN/GLOBULIN RATIO 0.6 (1.0-2.7); ALKALINE PHOSPHATASE 125 U/L (46-116); ASPARTATE AMINO TRANSFERASE 24 U/L (15-37); BILIRUBIN,TOTAL 0.4 MG/DL (0.2-1.0)
[2019-12-03 20:49] LABS: APPEARANCE,URINE SLIGHTLY CLOUDY; BILIRUBIN, URINE NEGATIVE (NEGATIVE); COLOR,URINE YELLOW; GLUCOSE, URINE (UA) 4+ (NEGATIVE); KETONES,URINE NEGATIVE (NEGATIVE); LEUKOCYTE ESTERASE ,URINE NEGATIVE (NEGATIVE); NITRITE,URINE NEGATIVE (NEGATIVE); PH,URINE 5 (4.5-8.0); PROTEIN,URINE 3+ (NEGATIVE); UROBILINOGEN,URINE NORMAL MG/DL (0.0-1.0)
[2019-12-03] MEDS ORDERED: D5 1/2NS w/KCl 20mEq 1,000 ML IV SCH (22:00)
[2019-12-03] MEDS ORDERED: Albuterol/Ipratropium 3ml neb HHN PRN (22:00)
[2019-12-03] MEDS ORDERED: Acetaminophen 650mg/20.3ml ORAL PRN (22:00)
[2019-12-03] MEDS ORDERED: Mylanta II UD 30ml ORAL PRN (22:00)
[2019-12-03] MEDS ORDERED: DiphenhydrAMINE 25mg Tab ORAL PRN (22:00)
--- NOTE | 2019-12-03 22:15 | Emergency Room Report ---
History of Present Illness General Chief Complaint: Abnormal Labs Present Illness HPI Patient is an 84-year-old male sent in by facility for abnormal laboratory testing. Patient was noted to have elevated BUN/creatinine compared to the patient's baseline. Had previous history of renal insufficiency. Apparently the patient had not been eating for several days. Patient had some prior history of diabetes type 2. Had previous hospitalizations at this facility. History is markedly limited by patient's mental status and poor historian. Allergies: Coded Allergies: No Known Allergies (Unverified , 12/09/13) Patient History Past Medical History: see triage record Reviewed Nursing Documentation: PMH: Agreed; PSxH: Agreed Nursing Documentation-PMH Hx Cardiac Problems: Yes - heart failure a-fib Hx Hypertension: Yes Hx COPD: Yes Hx Diabetes: Yes Hx Cancer: No Hx Gastrointestinal Problems: No Hx Neurological Problems: Yes Hx Dementia: Yes Hx Weakness: Yes Hx Fatigue: Yes Review of Systems All Other Systems: limited - Limited by poor cooperation Physical Exam Vital Signs Date Time Temp Pulse Resp B/P (MAP) Pulse Ox O2 Delivery O2 Flow Rate FiO2 12/03/19 19:39 98.1 77 18 107/58 (74) 95 Room Air Sp02 EP Interpretation: reviewed, normal General Appearance: normal inspection, well appearing, no apparent distress, alert, GCS 15, Chronically Ill Head: atraumatic ENT: normal ENT inspection, hearing grossly normal, normal voice Neck: normal inspection, full range of motion, supple, no bony tend Respiratory: normal inspection, lungs clear, normal breath sounds, no respiratory distress, no retraction, no wheezing Cardiovascular #1: regular rate, rhythm, no edema Gastrointestinal: normal inspection, normal bowel sounds, non tender, soft, no guarding, no hernia Genitourinary: no CVA tenderness Musculoskeletal: normal inspection, back normal, normal range of motion Neurologic: alert, responsive, normal inspection Psychiatric: normal inspection, judgement/insight normal, mood/affect normal Medical Decision Making Diagnostic Impression: Primary Impression: Acute on chronic renal failure Additional Impression: Metabolic acidosis ER Course Patient presented for abnormal laboratory testing. Differential diagnosis include was not limited to acidosis, dehydration, coagulopathy renal failure among others. Because of complexity of patient's case laboratory tests and imaging studies were ordered. Patient's laboratory testing showed continued metabolic acidosis as well as hyperglycemia. Patient does not appear to be any acute distress . patient was discussed with Dr. Babcock due to covering phycian for Dr. Pinto Labs Test 12/03/19 20:00 12/03/19 20:30 White Blood Count 9.8 K/UL (4.8-10.8) Red Blood Count 3.52 M/UL (4.70-6.10) Hemoglobin 10.5 G/DL (14.2-18.0) Hematocrit 32.7 % (42.0-52.0) Mean Corpuscular Volume 93 FL (80-99) Mean Corpuscular Hemoglobin 30.0 PG (27.0-31.0) Mean Corpuscular Hemoglobin Concent 32.3 G/DL (32.0-36.0) Red Cell Distribution Width 14.1 % (11.6-14.8) Platelet Count 130 K/UL (150-450) Mean Platelet Volume 7.8 FL (6.5-10.1) Neutrophils (%) (Auto) 85.6 % (45.0-75.0) Lymphocytes (%) (Auto) 8.5 % (20.0-45.0) Monocytes (%) (Auto) 4.2 % (1.0-10.0) Eosinophils (%) (Auto) 1.3 % (0.0-3.0) Basophils (%) (Auto) 0.5 % (0.0-2.0) Prothrombin Time 10.3 SEC (9.30-11.50) Prothromb Time International Ratio 1.0 (0.9-1.1) Activated Partial Thromboplast Time 31 SEC (23-33) Sodium Level 146 MMOL/L (136-145) Potassium Level 4.1 MMOL/L (3.5-5.1) Chloride Level 112 MMOL/L (98-107) Carbon Dioxide Level 18 MMOL/L (21-32) Anion Gap 16 mmol/L (5-15) Blood Urea Nitrogen 50 mg/dL (7-18) Creatinine 2.0 MG/DL (0.55-1.30) Estimat Glomerular Filtration Rate 31.9 mL/min (>60) Glucose Level 390 MG/DL (74-106) Calcium Level 8.9 MG/DL (8.5-10.1) Total Bilirubin 0.4 MG/DL (0.2-1.0) Aspartate Amino Transf (AST/SGOT) 24 U/L (15-37) Alanine Aminotransferase (ALT/SGPT) 38 U/L (12-78) Alkaline Phosphatase 125 U/L (46-116) Total Protein 6.4 G/DL (6.4-8.2) Albumin 2.3 G/DL (3.4-5.0) Globulin 4.1 g/dL Albumin/Globulin Ratio 0.6 (1.0-2.7) Lipase 282 U/L (73-393) Urine Color Yellow Urine Appearance Slightly cloudy Urine pH 5 (4.5-8.0) Urine Specific Peak 1.015 (1.005-1.035) Urine Protein 3+ (NEGATIVE) Urine Glucose (UA) 4+ (NEGATIVE) Urine Ketones Negative (NEGATIVE) Urine Blood 2+ (NEGATIVE) Urine Nitrite Negative (NEGATIVE) Urine Bilirubin Negative (NEGATIVE) Urine Urobilinogen Normal MG/DL (0.0-1.0) Urine Leukocyte Esterase Negative (NEGATIVE) Urine RBC 2-4 /HPF (0 - 0) Urine WBC 0-2 /HPF (0 - 0) Urine Squamous Epithelial Cells Occasional /LPF Urine Amorphous Sediment Moderate /LPF (NONE) Urine Bacteria Few /HPF (NONE) Last Vital Signs Date Time Temp Pulse Resp B/P (MAP) Pulse Ox O2 Delivery O2 Flow Rate FiO2 12/03/19 19:39 98.1 77 18 107/58 (74) 95 Room Air Status: improved Disposition: ADMITTED INPATIENT Condition: Stable Referrals: Miguelangel Frederick MD (PCP) Aston Alarcon MD Dec 03, 2019 22:15
[2019-12-03 23:00] VITALS: BP 112/62
[2019-12-03] MEDS ORDERED: cefTRIAXone 1 GM in D5W 55 ML IVPB ONE (23:30)
--- NOTE | 2019-12-04 | NUR ---
NURSE NOTES: Received pt from ED via gurney. Pt transferred to [facility] without any incident. Received report from DENAE Stauffer. Pt is A/Ox2. Burt pt to room and unit. bus driver/monitor is in placed; pt is NSR. IV site intact, asymptomatic, and patent. Belongings list checked and signed. Bed is in the lowest position and locked. Call light and bedside table is within reach. No signs/symptoms of acute distress note at this time. Received admission orders from Dr. Patel. Will note and carry out.
--- NOTE | 2019-12-04 | NUR ---
TRANSFER TO FLOOR: Patient transferred to as ordered, per dR CALLAHAN. Report given to DENAE BARRAGAN. Belongings and medications given to . Family and or S/O informed of transfer.
[2019-12-04 00:10] VITALS: BP 148/73
[2019-12-04 04:00] VITALS: BP 138/67
[2019-12-04] MEDS: NovoLOG Insulin Flexpen SUBQ SCH ×4 (06:14→20:53)
[2019-12-04 07:16] LABS: BASOPHILS % (AUTO) 0.5 % (0.0-2.0); EOSINOPHILS % (AUTO) 1.7 % (0.0-3.0); HEMATOCRIT 34.4 % (42.0-52.0); HEMOGLOBIN 11.6 G/DL (14.2-18.0); LYMPHOCYTES % (AUTO) 11.4 % (20.0-45.0); MEAN CORPUSCULAR VOLUME 91 FL (80-99); MONOCYTES % (AUTO) 5.1 % (1.0-10.0); NEUTROPHILS % (AUTO) 81.3 % (45.0-75.0); PLATELET COUNT 153 K/UL (150-450); RED BLOOD COUNT 3.78 M/UL (4.70-6.10); RED CELL DISTRIBUTION WIDTH 12.8 % (11.6-14.8); WHITE BLOOD COUNT 11.4 K/UL (4.8-10.8)
[2019-12-04 07:35] LABS: ANION GAP 3 mmol/L (5-15); BLOOD UREA NITROGEN 49 mg/dL (7-18); CARBON DIOXIDE 20 MMOL/L (21-32); CHLORIDE 109 MMOL/L (98-107); CREATININE 1.7 MG/DL (0.55-1.30); POTASSIUM 3.7 MMOL/L (3.5-5.1); SODIUM 132 MMOL/L (136-145)
--- NOTE | 2019-12-04 07:40 | NUR ---
NURSE NOTES: Nurse report given by DENAE Benoit. Patient's sitting in bed, high duran position to eat breakfast, eyes open spontaneously, denies pain, no s/s of distress or SOB, Ao x 2. Bed low and locked, call light within reach, side rails x3, bed alarm is arm, monitor worker is armed. IV is running fluid, no s/s of infiltration or tenderness. Will continue to monitor.
--- NOTE | 2019-12-04 07:55 | NUR ---
HAND-OFF: Report given to DENAE Varghese. Plan of care endorsed.
[2019-12-04 08:00] VITALS: BP 121/66
[2019-12-04] MEDS ORDERED: Docusate 100mg cap ORAL SCH ×2 (09:00)
[2019-12-04] MEDS ORDERED: Memantine 10mg tab ORAL SCH (09:00)
--- NOTE | 2019-12-04 09:20 | Consultation ---
Consult Note Consult Note asked to eval at the request of Dr Hudson for renal failure. Patient known to me from his previous admission Past history of the patient significant for diabetes mellitus hypertension congestive heart failure atrial fibrillation COPD and dementia. ER: Patient is an 84-year-old male sent in by facility for abnormal laboratory testing. Patient was noted to have elevated BUN/creatinine compared to the patient's baseline. Had previous history of renal insufficiency. Apparently the patient had not been eating for several days. Patient had some prior history of diabetes type 2. Had previous hospitalizations at this facility. History is markedly limited by patient's mental status and poor historian. Patient interviewed he is a poor historian. He denies any aches pains or shortness of breath. He is confused and in no distress. Vital signs are stable. Heart rate mainly regular. Decreased breath sounds on auscultation. Abdomen distended. No leg edema. Assessment/Plan Acute on chronic kidney disease likely diabetes mellitus and hypertension. Patient had echogenic kidneys on previous kidney ultrasound on August 2019 Hypertension Diabetes mellitus History of pleural effusion Ejection fraction of 50% in previous echocardiogram in August 2019 Mild Anemia BPH Monitor renal parameters Keep the blood sugar and blood pressure and check Continue Flomax. Check chest x-ray. Change IV to 50 cc normal saline. Initiate anemia work-up. Continue per consultants. Bill Redman MD Dec 04, 2019 09:20
[2019-12-04 09:47] LABS: ALANINE AMINOTRANSFERASE 29 U/L (12-78); ALBUMIN 2.4 G/DL (3.4-5.0); ALKALINE PHOSPHATASE 110 U/L (46-116); ASPARTATE AMINO TRANSFERASE 26 U/L (15-37); BILIRUBIN,DIRECT < 0.1 MG/DL (0.0-0.3); BILIRUBIN,TOTAL 0.4 MG/DL (0.2-1.0); PHOSPHORUS 2.5 MG/DL (2.5-4.9)
[2019-12-04] MEDS: Aspirin EC 81mg tab ORAL SCH (10:22)
[2019-12-04] MEDS: Tamsulosin 0.4mg cap ORAL SCH ×2 (10:22→17:01)
[2019-12-04] MEDS: Heparin 5000 units/ml inj SUBQ SCH ×2 (10:23→20:53)
[2019-12-04 12:00] VITALS: BP 128/62
--- NOTE | 2019-12-04 12:10 | NUR ---
*-* INSURANCE *-* ALL CLINICALS HAVE BEEN FAXED TO: TANISHA Odonnell # [phone]
--- NOTE | 2019-12-04 12:52 | History and Physical ---
History of Present Illness General Date patient seen: Dec 04, 2019 Time patient seen: 09:15 Reason for Hospitalization: KELLEN Present Illness HPI Mr. Dubon is a 84 yo M with DM2, HTN, CHF, A fib, COPD, dementia, presenting with decreased PO intake x several days from SNF, found to have KELLEN. Patient is complaining of no pain, discomfort at this time. Also barely touched his breakfast, but saying he is not hungry. Unable to provide any further history due to his mental status Allergies: Coded Allergies: No Known Allergies (Unverified , 12/09/13) Medication History Scheduled Allopurinol* (Allopurinol*), 100 MG ORAL DAILY, (Reported) Aspirin Ec* (Aspirin Ec*), 81 MG ORAL DAILY, (Reported) Cranberry Fruit (Cranberry), 450 MG PO DAILY, (Reported) Docusate Sodium* (Docusate Sodium*), 100 MG ORAL TWICE A DAY, (Reported) Ferrous Sulfate* (Ferrous Sulfate*), 325 MG ORAL TWICE A DAY, (Reported) Fluticasone Propionate (Flovent Hfa), 1 PUFFS INH BID, (Reported) Folic Acid* (Folic Acid*), 1 MG ORAL DAILY, (Reported) Insulin Glargine (Lantus), 23 UNITS SUBQ DAILY, (Reported) Ipratropium [place] (Ipratropium [place]), 2 SPR NS THREE TIMES A DAY, (Reported ) Melatonin (Melatonin 5 Mg Tablet), 1 TAB ORAL BEDTIME, (Reported) Memantine Hcl* (Namenda*), 10 MG ORAL TWICE A DAY, (Reported) Nateglinide* (Starlix*), 60 MG ORAL THREE TIMES A DAY, (Reported) Pantoprazole* (Pantoprazole*), 40 MG ORAL DAILY, (Reported) Rosuvastatin Calcium* (Crestor*), 10 MG ORAL DAILY, (Reported) Tamsulosin HCl (Flomax), 0.4 MG ORAL BID Scheduled PRN Acetaminophen* (Acetaminophen*), 650 MG ORAL Q6H PRN for Mild Pain/Temp > 100.5, (Reported) Ondansetron* (Zofran*), 4 MG ORAL Q6H PRN for Nausea & Vomiting, (Reported) Patient History Limited by: age, medical condition History Provided By: Patient, Medical Record, EMS Healthcare decision maker Resuscitation status Full Code Advanced Directive on File Review of Systems Constitutional: Denies: no symptoms, see HPI, chills, sweats, fever, malaise, weakness, other Eye: Denies: no symptoms, see HPI, eye pain, blurred vision, tearing, double vision, nose pain, nose congestion, acuity changes, discharge, other ENT: Denies: no symptoms, see HPI, ear pain, ear discharge, nose pain, nose congestion, throat pain, throat swelling, mouth pain, hearing loss, nasal discharge, other Respiratory: Denies: no symptoms, see HPI, cough, orthopnea, shortness of breath, stridor, wheezing, MARTINEZ, sputum, other Cardiovascular: Denies: no symptoms, see HPI, chest pain, edema, palpitations, syncope, PND, other Gastrointestinal: Denies: no symptoms, see HPI, abdominal pain, constipation, diarrhea, nausea, vomiting, melena, hematemesis, other Genitourinary: Denies: no symptoms, see HPI, discharge, dysuria, frequency, hematuria, pain, retention, incontinence, urgency, vag bleed/dc, other Musculoskeletal: Denies: no symptoms, see HPI, back pain, gout, joint pain, joint swelling, muscle pain, muscle stiffness, other Skin: Denies: no symptoms, see HPI, rash, change in color, change in hair/nails , dryness, lesions, other Psychiatric: Denies: no symptoms, see HPI, prior hx, anxiety, depressed feelings, emotional problems, SI, HI, hallucinations, other Neurological: Denies: no symptoms, see HPI, headache, numbness, paresthesia, seizure, tingling, tremors, focal weakness, syncope, dizziness, other Endocrine: Denies: no symptoms, see HPI, excessive sweating, flushing, intolerance to temperature, increased thirst, increased urine, unexplained weight loss, other Hematologic/Lymphatic: Denies: no symptoms, see HPI, anemia, blood clots, easy bleeding, easy bruising, swollen glands, diathesis, other All Other Systems: negative except mentioned in HPI Physical Exam General Appearance: no apparent distress, confused HEENT: normocephalic, atraumatic Neck: supple Respiratory/Chest: lungs clear, normal breath sounds Cardiovascular/Chest: normal rate, regular rhythm Abdomen: non tender, soft Extremities: no edema Neurologic: responsive Last 24 Hour Vital Signs Date Time Temp Pulse Resp B/P (MAP) Pulse Ox O2 Delivery O2 Flow Rate FiO2 12/04/19 08:05 72 20 97 Room Air 21 12/04/19 08:00 97.7 73 19 121/66 (84) 97 12/04/19 08:00 83 12/04/19 04:00 97.8 71 17 138/67 (90) 97 12/04/19 04:00 86 12/04/19 00:23 Room Air 12/04/19 00:10 97.8 76 17 148/73 (98) 94 12/04/19 00:07 80 12/04/19 00:00 98.4 80 16 112/62 96 Room Air 12/03/19 23:00 98.4 80 16 112/62 96 Room Air 12/03/19 19:45 98.1 77 18 107/58 95 Room Air 12/03/19 19:39 98.1 77 18 107/58 (74) 95 Room Air Intake and Output 12/03/19 12/04/19 19:00 07:00 Intake Total 120 ml Balance 120 ml Intake Oral 120 ml # Voids 2 # Bowel Movements 1 Laboratory Tests Test 12/03/19 20:00 12/03/19 20:30 12/04/19 05:50 White Blood Count 9.8 K/UL (4.8-10.8) 11.4 K/UL (4.8-10.8) H Red Blood Count 3.52 M/UL (4.70-6.10) L 3.78 M/UL (4.70-6.10) L Hemoglobin 10.5 G/DL (14.2-18.0) L 11.6 G/DL (14.2-18.0) L Hematocrit 32.7 % (42.0-52.0) L 34.4 % (42.0-52.0) L Mean Corpuscular Volume 93 FL (80-99) 91 FL (80-99) Mean Corpuscular Hemoglobin 30.0 PG (27.0-31.0) 30.7 PG (27.0-31.0) Mean Corpuscular Hemoglobin Concent 32.3 G/DL (32.0-36.0) 33.6 G/DL (32.0-36.0) Red Cell Distribution Width 14.1 % (11.6-14.8) 12.8 % (11.6-14.8) Platelet Count 130 K/UL (150-450) L 153 K/UL (150-450) Mean Platelet Volume 7.8 FL (6.5-10.1) 6.3 FL (6.5-10.1) L Neutrophils (%) (Auto) 85.6 % (45.0-75.0) H 81.3 % (45.0-75.0) H Lymphocytes (%) (Auto) 8.5 % (20.0-45.0) L 11.4 % (20.0-45.0) L Monocytes (%) (Auto) 4.2 % (1.0-10.0) 5.1 % (1.0-10.0) Eosinophils (%) (Auto) 1.3 % (0.0-3.0) 1.7 % (0.0-3.0) Basophils (%) (Auto) 0.5 % (0.0-2.0) 0.5 % (0.0-2.0) Prothrombin Time 10.3 SEC (9.30-11.50) Prothromb Time International Ratio 1.0 (0.9-1.1) Activated Partial Thromboplast Time 31 SEC (23-33) Sodium Level 146 MMOL/L (136-145) H 132 MMOL/L (136-145) #L Potassium Level 4.1 MMOL/L (3.5-5.1) 3.7 MMOL/L (3.5-5.1) Chloride Level 112 MMOL/L (98-107) H 109 MMOL/L (98-107) H Carbon Dioxide Level 18 MMOL/L (21-32) L 20 MMOL/L (21-32) L Anion Gap 16 mmol/L (5-15) H 3 mmol/L (5-15) L Blood Urea Nitrogen 50 mg/dL (7-18) H 49 mg/dL (7-18) H Creatinine 2.0 MG/DL (0.55-1.30) H 1.7 MG/DL (0.55-1.30) H Estimat Glomerular Filtration Rate 31.9 mL/min (>60) 38.5 mL/min (>60) Glucose Level 390 MG/DL (74-106) H 136 MG/DL (74-106) #H Calcium Level 8.9 MG/DL (8.5-10.1) 9.0 MG/DL (8.5-10.1) Total Bilirubin 0.4 MG/DL (0.2-1.0) 0.4 MG/DL (0.2-1.0) Aspartate Amino Transf (AST/SGOT) 24 U/L (15-37) 26 U/L (15-37) Alanine Aminotransferase (ALT/SGPT) 38 U/L (12-78) 29 U/L (12-78) Alkaline Phosphatase 125 U/L (46-116) H 110 U/L (46-116) Total Protein 6.4 G/DL (6.4-8.2) 6.5 G/DL (6.4-8.2) Albumin 2.3 G/DL (3.4-5.0) L 2.4 G/DL (3.4-5.0) L Globulin 4.1 g/dL Albumin/Globulin Ratio 0.6 (1.0-2.7) L Lipase 282 U/L (73-393) Urine Color Yellow Urine Appearance Slightly cloudy Urine pH 5 (4.5-8.0) Urine Specific [place] 1.015 (1.005-1.035) Urine Protein 3+ (NEGATIVE) H Urine Glucose (UA) 4+ (NEGATIVE) H Urine Ketones Negative (NEGATIVE) Urine Blood 2+ (NEGATIVE) H Urine Nitrite Negative (NEGATIVE) Urine Bilirubin Negative (NEGATIVE) Urine Urobilinogen Normal MG/DL (0.0-1.0) Urine Leukocyte Esterase Negative (NEGATIVE) Urine RBC 2-4 /HPF (0 - 0) H Urine WBC 0-2 /HPF (0 - 0) Urine Squamous Epithelial Cells Occasional /LPF Urine Amorphous Sediment Moderate /LPF (NONE) H Urine Bacteria Few /HPF (NONE) Hemoglobin A1c 7.6 % (4.3-6.0) H Uric Acid 4.8 MG/DL (2.6-7.2) Phosphorus Level 2.5 MG/DL (2.5-4.9) Magnesium Level 1.9 MG/DL (1.8-2.4) Direct Bilirubin < 0.1 MG/DL (0.0-0.3) Thyroid Stimulating Hormone (TSH) 1.392 uiU/mL (0.358-3.740) Height (Feet): 5 Height (Inches): 6.00 Weight (Pounds): 139 Medications Current Medications Medications (Trade) Dose Ordered Sig/Breanna Route PRN Reason Start Time Stop Time Status Last Admin Dose Admin Acetaminophen (Tylenol) 650 mg Q6H PRN ORAL Mild Pain/Temp > 100.5 12/03/19 22:00 01/02/20 21:59 Albuterol/ Ipratropium (Albuterol/ Ipratropium) 3 ml Q6H PRN HHN Shortness of Breath 12/03/19 22:00 12/08/19 21:59 Aspirin (Ecotrin) 81 mg DAILY ORAL 12/04/19 09:00 01/03/20 08:59 12/04/19 10:22 Dextrose (Dextrose 50%) 25 ml Q30M PRN IV Hypoglycemia 12/03/19 22:00 01/02/20 21:59 Dextrose (Dextrose 50%) 50 ml Q30M PRN IV Hypoglycemia 12/03/19 22:00 01/02/20 21:59 Diphenhydramine HCl (Benadryl) 25 mg Q6H PRN ORAL Itching/Pruritis 12/03/19 22:00 01/02/20 21:59 Docusate Sodium (Colace) 100 mg TID ORAL 12/04/19 13:00 01/03/20 08:59 Folic Acid (Folate) 1 mg DAILY ORAL 12/04/19 09:00 01/03/20 08:59 12/04/19 10:22 Heparin Sodium (Porcine) (Heparin 5000 units/ml) 5,000 units EVERY 12 HOURS SUBQ 12/04/19 09:00 01/03/20 08:59 12/04/19 10:23 Insulin Aspart (NovoLOG) BEFORE MEALS AND HS SUBQ 12/04/19 06:30 01/03/20 06:29 Insulin Detemir (Levemir) 8 units BEDTIME SUBQ 12/04/19 21:00 01/03/20 20:59 Mirtazapine (Remeron) 15 mg BEDTIME ORAL 12/04/19 21:00 01/03/20 20:59 Ondansetron HCl (Zofran) 4 mg Q6H PRN IVP Nausea & Vomiting 12/03/19 22:00 01/02/20 21:59 Pantoprazole (Protonix) 40 mg DAILY ORAL 12/04/19 09:00 01/03/20 08:59 12/04/19 10:23 Sodium Chloride 1,000 ml @ 50 mls/hr Q20H IV 12/04/19 10:45 01/03/20 10:44 12/04/19 11:08 Tamsulosin HCl (Flomax) 0.4 mg BID ORAL 12/04/19 09:00 01/03/20 08:59 12/04/19 10:22 Assessment/Plan Problem List: (1) KELLEN (acute kidney injury) ICD Codes: N17.9 - Acute kidney failure, unspecified SNOMED: 0187696, 11630083 (2) Depression ICD Codes: F32.9 - Depression SNOMED: 02914620 (3) Diabetes ICD Codes: E11.9 - Diabetes SNOMED: 72842023 (4) HTN (hypertension) ICD Codes: I10 - HTN (hypertension) SNOMED: 34054657 (5) Atrial fibrillation ICD Codes: I48.91 - Unspecified atrial fibrillation SNOMED: 90534625 (6) History of COPD ICD Codes: Z87.09 - Personal history of other diseases of the respiratory system SNOMED: 580845832 Status: stable Assessment/Plan: Mr. Dubon is a 84 year old male with hx of HTN, DM2, presenting from SNF with decreased PO intake, and KELLEN. #Decreased PO intake #Failure to thrive #KELLEN -Admit to inpatient -continue IVF at 75 mL/hr. -Nephrology consult appreciated. -Psychiatry consult appreciated. Mirtazipine started. #Cough #Leukocytosis -Continue empiric abx (Ceftriaxone, azithromycin 12/03- ) -check CXR, flu panel, sputum Cx. -Pulmonology consult appreciated. #DM2 -Continue insulin sliding scale + long acting. -POCT glucose. #BPH -Continue flomax. #GERD -continue PPI Extra 36 minutes spent on chart review of pertinent patient info (labs, meds, imaging, Md notes, etc.) Time of note does not reflect time of encounter. - Ismael Hudson M.D. Dec 04, 2019 12:52
[2019-12-04] MEDS: Docusate 100mg cap ORAL SCH ×2 (13:00→17:01)
--- NOTE | 2019-12-04 13:34 | NUR ---
CASE MANAGEMENT:REVIEW 84YR OLD MALE BIBA FROM [facility] CC: ABNORMAL LABS SI: AC/CHR RENAL FAILURE METABOLIC ACIDOSIS 98.1 77 18 107/58 95% ON RA H/H-10.5/32.7 NA+146 BUN+50 CR+2.0 GLUCOSE+390 IS: 500CC NS BOLUS IV PROTONIX TYPE/SCREEN : TO TELEMETRY DCP: RETURN TO [facility]
[2019-12-04] MEDS ORDERED: Azithromycin 500 MG in D5W 275 ML IV SCH (14:00)
[2019-12-04 16:00] VITALS: BP 117/59
--- NOTE | 2019-12-04 16:04 | Diagnostic Imaging Report ---
Indication: Dyspnea Comparison: 08/03/2019 A single view chest radiograph was obtained. Findings: Retrocardiac density noted on the left. Heart is mildly enlarged. Aorta is slightly ectatic. Sternotomy noted. Density over the right midlung also demonstrated probably pleural in nature. Some pleural calcium is present. Bones are osteopenic. IMPRESSION: No change from the prior exam. Pneumonia or infiltrate at the left lung base may be present. Correlate clinically. Bilateral pleural thickening and calcification
--- NOTE | 2019-12-04 18:00 | Consultation ---
DATE OF CONSULTATION: 12/04/2019 PULMONARY CONSULTATION HISTORY OF PRESENT ILLNESS: This is an 84-year-old male admitted to the hospital with decreased p.o. intake. [facility] a [facility]. The patient was evaluated in the emergency room and diagnosis of possible pneumonia was entertained. The patient was started on ceftriaxone and azithromycin. The patient himself is unable to provide any further history. PAST MEDICAL HISTORY: Depression, diabetes mellitus, hypertension, and atrial fibrillation. SURGERIES: Not known. HOME MEDICATIONS: Allopurinol, aspirin, cranberry fruit, Colace, ferrous sulfate, fluticasone, folic acid, insulin 20 units subcutaneous daily, Atrovent, melatonin, Namenda, Starlix, Protonix, Crestor, and Flomax. CODE STATUS: Full. ALLERGIES: None known. REVIEW OF SYSTEMS: Unreliable. PHYSICAL EXAMINATION: GENERAL: Reveals elderly male. VITAL SIGNS: Blood pressure is 117/59 and heart rate is 84, respirations 20. He is afebrile. HEENT: Unremarkable. CHEST: Shows decreased breath sounds bilaterally with normal heart sounds. ABDOMEN: Soft. EXTREMITIES: There is no edema. LABORATORY DATA: Laboratory testing shows white count 11.4 and hemoglobin 11.6. Sodium 132 and creatinine 1.7. Glucose 136. Coags are negative. Urinalysis is negative. IMAGING STUDIES: X-ray of the chest is obtained, which showed density of the left lung base consistent with pneumonia. IMPRESSION: 1. Left lung field pneumonia. 2. Hypertension. 3. Dementia. 4. correction resident. 5. Diabetes mellitus. DISCUSSION: Agree with admission and care. Concur with current antibiotics. If he does not respond in 24 hours, he may be a candidate for more broad-spectrum antibiotics, but currently these antibiotics are appropriate. Agree with obtaining a nasal swab to exclude influenza, intravenous fluids, breathing treatment, pulmonary hygiene, diabetes control, DVT prophylaxis. We will follow. Kenyon Garcia M.D. DR: THERON JOB#: [id number] CC:
[2019-12-04] MEDS ORDERED: ACETAMINOPHEN500 M3 ORAL ×2 (19:00→19:06)
[2019-12-04] MEDS ORDERED: ACETAMINOPHEN325 M1 ORAL (19:04)
[2019-12-04] MEDS ORDERED: CRANBERRY450 M5 PO (19:07)
[2019-12-04] MEDS ORDERED: FLOVENT2 PUFF1 INH (19:07)
[2019-12-04] MEDS ORDERED: MELATONIN 5 MG1 EAC1 ORAL (19:07)
[2019-12-04] MEDS ORDERED: STARLIX60 MG ORAL (19:07)
[2019-12-04] MEDS ORDERED: LANTUS SOL100 UNIT/1 SUBQ (19:07)
[2019-12-04] MEDS ORDERED: ZOFRAN4 M3 ORAL (19:07)
[2019-12-04] MEDS ORDERED: ALLOPURINOL100 M1 ORAL (19:07)
[2019-12-04] MEDS ORDERED: FOLIC ACID1 MG ORAL (19:07)
[2019-12-04] MEDS ORDERED: DOCUSATE SODIU100 MG ORAL (19:07)
[2019-12-04] MEDS ORDERED: ASPIRIN EC81 MG ORAL (19:07)
[2019-12-04] MEDS ORDERED: FERROUS SULFAT325 MG ORAL (19:07)
[2019-12-04] MEDS ORDERED: CRESTOR10 M2 ORAL (19:07)
[2019-12-04] MEDS ORDERED: IPRATROPIUM BRO15 ML NS (19:07)
[2019-12-04] MEDS ORDERED: LEXAPRO10 MG ORAL (19:13)
--- NOTE | 2019-12-04 19:40 | NUR ---
NURSE NOTES: Received pt and report from DENAE Varghese. Pt is A/Ox2. Observed pt resting in bed with both eyes open. plug shaper hand is in placed, IV site intact, asymptomatic and patent; currently running NS @75cc/hr. Bed is in the lowest position and locked. Call light and bedside table is within reach. No signs/symptoms of acute distress noted at this time. Will continue plan of care.
--- NOTE | 2019-12-04 19:48 | NUR ---
HAND-OFF: Report given to DENAE Benoit. Patient's stable, plan of care endorsed.
[2019-12-04 20:00] VITALS: BP 116/63
[2019-12-04] MEDS: Levemir Flexpen SUBQ SCH (20:52)
[2019-12-04] MEDS ORDERED: cefTRIAXone 1gm/D5W 55ml IVPB SCH ×2 (22:00)
[2019-12-05] VITALS: BP 131/64
[2019-12-05 04:00] VITALS: BP 141/61
[2019-12-05] MEDS: NovoLOG Insulin Flexpen SUBQ SCH ×4 (06:29→21:00)
[2019-12-05 06:30] LABS: BASOPHILS % (AUTO) 0.8 % (0.0-2.0); EOSINOPHILS % (AUTO) 1.1 % (0.0-3.0); HEMATOCRIT 32.8 % (42.0-52.0); HEMOGLOBIN 11.1 G/DL (14.2-18.0); LYMPHOCYTES % (AUTO) 12.6 % (20.0-45.0); MEAN CORPUSCULAR VOLUME 91 FL (80-99); MONOCYTES % (AUTO) 5.9 % (1.0-10.0); NEUTROPHILS % (AUTO) 79.6 % (45.0-75.0); PLATELET COUNT 144 K/UL (150-450); RED BLOOD COUNT 3.61 M/UL (4.70-6.10); RED CELL DISTRIBUTION WIDTH 12.7 % (11.6-14.8); WHITE BLOOD COUNT 9.6 K/UL (4.8-10.8)
--- NOTE | 2019-12-05 06:55 | Pulmonology Progress Note ---
Assessment/Plan Assessment/Plan IMPRESSION: 1. Left lung field pneumonia. 2. Hypertension. 3. Dementia. 4. [facility] resident. 5. Diabetes mellitus. DISCUSSION: Continue antibiotics. Await nasal swab to exclude influenza Continue intravenous fluids Respiratory hygiene with breathing treatment Diabetes control DVT prophylaxis. I will follow. Subjective Interval Events: Saturating well. Labs pending Constitutional: Reports: no symptoms HEENT: Repors: no symptoms Respiratory: Reports: no symptoms Cardiovascular: Reports: no symptoms Gastrointestinal/Abdominal: Reports: no symptoms Allergies: Coded Allergies: No Known Allergies (Unverified , 12/09/13) Objective Last 24 Hour Vital Signs Date Time Temp Pulse Resp B/P (MAP) Pulse Ox O2 Delivery O2 Flow Rate FiO2 12/05/19 04:00 96 12/05/19 04:00 97.3 96 20 141/61 (87) 97 12/05/19 00:00 97.7 103 20 131/64 (86) 96 12/05/19 00:00 104 12/04/19 21:00 Room Air 12/04/19 20:00 94 12/04/19 20:00 96.9 87 20 116/63 (80) 98 12/04/19 19:52 88 20 97 Room Air 21 12/04/19 16:00 96.8 90 20 117/59 (78) 98 12/04/19 16:00 85 12/04/19 12:00 97.9 89 18 128/62 (84) 97 12/04/19 12:00 88 12/04/19 09:00 Room Air 12/04/19 08:05 72 20 97 Room Air 21 12/04/19 08:00 97.7 73 19 121/66 (84) 97 12/04/19 08:00 83 Intake and Output 12/04/19 12/05/19 19:00 07:00 Intake Total 470 ml 180 ml Balance 470 ml 180 ml Intake Oral 470 ml 180 ml # Voids 4 2 # Bowel Movements 1 General Appearance: no acute distress HEENT: normocephalic Respiratory/Chest: chest wall non-tender Cardiovascular: normal peripheral pulses Microbiology Date/Time Source Procedure Growth Status 12/04/19 12:30 Nasal Nares Left - Final Complete 12/04/19 12:30 Nasal Nares Left - Final Complete 12/04/19 12:30 Sputum Gram Stain - Final Resulted 12/04/19 12:30 Sputum Sputum Culture Pending Resulted Laboratory Tests 12/05/19 05:10: White Blood Count [Pending], Red Blood Count [Pending], Hemoglobin [Pending], Hematocrit [Pending], Mean Corpuscular Volume [Pending], Mean Corpuscular Hemoglobin [Pending], Mean Corpuscular Hemoglobin Concent [Pending], Red Cell Distribution Width [Pending], Platelet Count [Pending], Mean Platelet Volume [ Pending], Neutrophils (%) (Auto) [Pending], Lymphocytes (%) (Auto) [Pending], Monocytes (%) (Auto) [Pending], Eosinophils (%) (Auto) [Pending], Basophils (%) (Auto) [Pending], Sodium Level [Pending], Potassium Level [Pending], Chloride Level [Pending], Carbon Dioxide Level [Pending], Blood Urea Nitrogen [Pending], Creatinine [Pending], Estimat Glomerular Filtration Rate [Pending], Glucose Level [Pending], Uric Acid [Pending], Calcium Level [Pending], Iron Level [ Pending], Unsaturated Iron Binding [Pending], Ferritin [Pending], Total Bilirubin [Pending], Aspartate Amino Transf (AST/SGOT) [Pending], Alanine Aminotransferase (ALT/SGPT) [Pending], Alkaline Phosphatase [Pending], Troponin I [Pending], C-Reactive Protein, Quantitative [Pending], Pro-B-Type Natriuretic Peptide [Pending], Total Protein [Pending], Albumin [Pending], Globulin [Pending ], Vitamin B12 Level [Pending], Folate [Pending], Thyroid Stimulating Hormone ( TSH) [Pending] Current Medications Medications (Trade) Dose Ordered Sig/Breanna Route PRN Reason Start Time Stop Time Status Last Admin Dose Admin Acetaminophen (Tylenol) 650 mg Q6H PRN ORAL Mild Pain/Temp > 100.5 12/03/19 22:00 01/02/20 21:59 Albuterol/ Ipratropium (Albuterol/ Ipratropium) 3 ml Q6H PRN HHN Shortness of Breath 12/03/19 22:00 12/08/19 21:59 Aspirin (Ecotrin) 81 mg DAILY ORAL 12/04/19 09:00 01/03/20 08:59 12/04/19 10:22 Azithromycin 500 mg/Dextrose 275 ml @ 275 mls/hr Q24HRS IV 12/04/19 14:00 12/10/19 14:59 12/04/19 14:25 Ceftriaxone Sodium 1 gm/ Dextrose 55 ml @ 110 mls/hr Q24H IVPB 12/04/19 22:00 12/11/19 21:59 12/04/19 21:29 Dextrose (Dextrose 50%) 25 ml Q30M PRN IV Hypoglycemia 12/03/19 22:00 01/02/20 21:59 Dextrose (Dextrose 50%) 50 ml Q30M PRN IV Hypoglycemia 12/03/19 22:00 01/02/20 21:59 Diphenhydramine HCl (Benadryl) 25 mg Q6H PRN ORAL Itching/Pruritis 12/03/19 22:00 01/02/20 21:59 Docusate Sodium (Colace) 100 mg TID ORAL 12/04/19 13:00 01/03/20 08:59 12/04/19 17:01 Folic Acid (Folate) 1 mg DAILY ORAL 12/04/19 09:00 01/03/20 08:59 12/04/19 10:22 Heparin Sodium (Porcine) (Heparin 5000 units/ml) 5,000 units EVERY 12 HOURS SUBQ 12/04/19 09:00 01/03/20 08:59 12/04/19 20:53 Insulin Aspart (NovoLOG) BEFORE MEALS AND HS SUBQ 12/04/19 06:30 01/03/20 06:29 12/04/19 17:02 Insulin Detemir (Levemir) 8 units BEDTIME SUBQ 12/04/19 21:00 01/03/20 20:59 12/04/19 20:52 Mirtazapine (Remeron) 15 mg BEDTIME ORAL 12/04/19 21:00 01/03/20 20:59 12/04/19 20:51 Ondansetron HCl (Zofran) 4 mg Q6H PRN IVP Nausea & Vomiting 12/03/19 22:00 01/02/20 21:59 Pantoprazole (Protonix) 40 mg DAILY ORAL 12/04/19 09:00 4/2/20 08:59 12/04/19 10:23 Sodium Chloride 1,000 ml @ 75 mls/hr [id number] IV 12/04/19 13:00 01/03/20 12:59 12/05/19 02:42 Tamsulosin HCl (Flomax) 0.4 mg BID ORAL 12/04/19 09:00 01/03/20 08:59 12/04/19 17:01 Kenyon Garcia MD Dec 05, 2019 06:55
[2019-12-05 06:59] LABS: ALANINE AMINOTRANSFERASE 29 U/L (12-78); ALBUMIN 2.3 G/DL (3.4-5.0); ALBUMIN/GLOBULIN RATIO 0.6 (1.0-2.7); ALKALINE PHOSPHATASE 102 U/L (46-116); ANION GAP 11 mmol/L (5-15); ASPARTATE AMINO TRANSFERASE 25 U/L (15-37); BILIRUBIN,TOTAL 0.4 MG/DL (0.2-1.0); BLOOD UREA NITROGEN 38 mg/dL (7-18); CALCIUM 8.8 MG/DL (8.5-10.1); CARBON DIOXIDE 21 MMOL/L (21-32); CHLORIDE 112 MMOL/L (98-107); CREATININE 1.6 MG/DL (0.55-1.30); FERRITIN 777 NG/ML (8-388); POTASSIUM 3.9 MMOL/L (3.5-5.1); SODIUM 144 MMOL/L (136-145)
[2019-12-05 07:19] LABS: % IRON SATURATION 22 % (15-50); IRON 32 ug/dL (50-175); TOTAL IRON BINDING CAPACITY 145 ug/dL (250-450)
--- NOTE | 2019-12-05 07:20 | NUR ---
NURSE NOTES: RECEIVED BED SIDE REPORT FROM YUNG TIN CAN FEEDER OF RUBBER GASKET INSPECTOR TRIMMER. RECEIVED PT WITH HOB ELEVATED 45 DEGREE EYES OPENS WITH VERBAL AND TACTILE STIMULI. PT WITH HL ON RT WRIST G# 18 CONNECT TO IVF,S NS @ 75CC/HRS INFUSING WELL. PT REPOSITIONED IN BED Q 2HRS TO PROVIDE COMFORT AND TO PREVENT SKIN BREAK DOWN. FULL BODY ASSESSMENT DONE. WILL CONT TO MONITOR.
--- NOTE | 2019-12-05 07:36 | NUR ---
HAND-OFF: Report given to DENAE Eldridge. Plan of care endorsed.
[2019-12-05 08:00] VITALS: BP 117/74
--- NOTE | 2019-12-05 10:00 | Consultation ---
DATE OF CONSULTATION: 12/04/2019 CONSULTING PHYSICIAN: Ana Chao M.D. HISTORY OF PRESENT ILLNESS: The patient is an 84-year-old male with a history of depression who has been under my care for the past four years. The patient has a history of , hypertension, CHF, atrial fibrillation, COPD, and for the past 12 months. The patient gradually became more depressed and withdrawn. He was on Zoloft, and due to gradual dose reduction, the Zoloft was decreased and stopped. The patient deteriorated severely. Again, his memory started deteriorating. The patient also has been having decreasing appetite for the past several months and has had significant weight loss. The patient also forgot to speak K[place]z and is now mostly speaking Korean, which is his primary language. The patient has been having episodes of anxiety. Now, he came to the emergency room and has not been eating for four days. PAST PSYCHIATRIC HISTORY: Depression, anxiety, and dementia. PAST MEDICAL HISTORY: , hypertension, CHF, atrial fibrillation, and COPD. ALLERGIES: No known drug allergies. SUBSTANCE ABUSE HISTORY: No known history of illicit drug use or alcohol. MENTAL STATUS EXAMINATION: The patient is alert and disoriented. Mood is neutral. Affect is flat. Thought process is concrete. Thought content, no suicidal or homicidal ideation. Cognition is impaired. Insight and judgement are impaired. ASSESSMENT: [place] I Major depressive disorder. Dementia. [place] II Deferred. [place] III . [place] IV Low. [place] V 20. PLAN: 1. Remeron. 2. Lexapro. 3. . Ana Chao M.D. DR: MICHAEL JOB#: [id number] CC:
[2019-12-05] MEDS: Aspirin EC 81mg tab ORAL SCH (10:16)
[2019-12-05] MEDS: Docusate 100mg cap ORAL SCH ×3 (10:17→17:54)
[2019-12-05] MEDS: Tamsulosin 0.4mg cap ORAL SCH ×2 (10:17→17:54)
[2019-12-05] MEDS: Heparin 5000 units/ml inj SUBQ SCH ×2 (10:18→20:59)
[2019-12-05 12:00] VITALS: BP 125/58
--- NOTE | 2019-12-05 12:00 | NUR ---
NURSE NOTES: DR WILDER CAME TO SEE THE PT AND MADE AWARE AND NOTIFIED REGARDING TROPONIN LEVEL 0.101. NO NEW ORDERS FROM M.D NOTED AT THIS TIME. WILL CONT TO MONITOR.
--- NOTE | 2019-12-05 13:25 | Nephrology Progress Note ---
Assessment/Plan Problem List: (1) Renal failure (ARF), acute on chronic (2) Diabetes (3) HTN (hypertension) (4) Anemia Assessment Acute on chronic kidney disease likely diabetes mellitus and hypertension. Patient had echogenic kidneys on previous kidney ultrasound on August 2019 Hypertension Diabetes mellitus History of pleural effusion Ejection fraction of 50% in previous echocardiogram in August 2019 Mild Anemia BPH . Plan Monitor renal parameters Keep the blood sugar and blood pressure and check Continue Flomax. DC IV hydrate Check chest x-ray. Initiate anemia work-up. Continue per consultants. Subjective ROS Limited/Unobtainable: No Constitutional: Reports: malaise, other - more responsive Objective Objective Last 24 Hour Vital Signs Date Time Temp Pulse Resp B/P (MAP) Pulse Ox O2 Delivery O2 Flow Rate FiO2 12/05/19 12:00 96.3 81 21 125/58 (80) 96 12/05/19 09:00 Room Air 12/05/19 08:10 84 18 98 Room Air 21 12/05/19 08:00 97.4 90 18 117/74 (88) 97 12/05/19 08:00 99 12/05/19 04:00 96 12/05/19 04:00 97.3 96 20 141/61 (87) 97 12/05/19 00:00 97.7 103 20 131/64 (86) 96 12/05/19 00:00 104 12/04/19 21:00 Room Air 12/04/19 20:00 94 12/04/19 20:00 96.9 87 20 116/63 (80) 98 12/04/19 19:52 88 20 97 Room Air 21 12/04/19 16:00 96.8 90 20 117/59 (78) 98 12/04/19 16:00 85 Intake and Output 12/04/19 12/05/19 19:00 07:00 Intake Total 470 ml 180 ml Balance 470 ml 180 ml Intake Oral 470 ml 180 ml # Voids 4 2 # Bowel Movements 1 Laboratory Tests 12/05/19 05:10: White Blood Count 9.6, Red Blood Count 3.61L, Hemoglobin 11.1L, Hematocrit 32.8L , Mean Corpuscular Volume 91, Mean Corpuscular Hemoglobin 30.7, Mean Corpuscular Hemoglobin Concent 33.8, Red Cell Distribution Width 12.7, Platelet Count 144L, Mean Platelet Volume 6.4L, Neutrophils (%) (Auto) 79.6H, Lymphocytes (%) (Auto) 12.6L, Monocytes (%) (Auto) 5.9, Eosinophils (%) (Auto) 1.1, Basophils (%) (Auto) 0.8, Sodium Level 144#, Potassium Level 3.9, Chloride Level 112H, Carbon Dioxide Level 21, Anion Gap 11, Blood Urea Nitrogen 38H, Creatinine 1.6H, Estimat Glomerular Filtration Rate 41.3, Glucose Level 127H, Uric Acid 4.9, Calcium Level 8.8, Iron Level 32L, Total Iron Binding Capacity 145L, Percent Iron Saturation 22, Unsaturated Iron Binding 113, Ferritin 777H, Total Bilirubin 0.4, Aspartate Amino Transf (AST/SGOT) 25, Alanine Aminotransferase (ALT/SGPT) 29, Alkaline Phosphatase 102, Troponin I 0.101H, C- Reactive Protein, Quantitative 16.0H, Pro-B-Type Natriuretic Peptide 4273H, Total Protein 6.4, Albumin 2.3L, Globulin 4.1, Albumin/Globulin Ratio 0.6L, Vitamin B12 Level 757, Folate 67.2H, Thyroid Stimulating Hormone (TSH) 1.954 Height (Feet): 5 Height (Inches): 6.00 Weight (Pounds): 145 General Appearance: no apparent distress Cardiovascular: normal rate, arrhythmia - rate variable Respiratory/Chest: decreased breath sounds Abdomen: soft Bill Redman MD Dec 05, 2019 13:25
[2019-12-05] MEDS: Azithromycin 500 MG in NS 275 ML IV SCH (14:01)
--- NOTE | 2019-12-05 14:23 | NUR ---
CASE MANAGEMENT:REVIEW 12/05/19 SI: PNA. AC/CHR RENAL FAILURE 96.3 81 21 125/58 96% ON RA H/H-11.1/32.8 PLT-144 BUN+38 CR+1.6 TROPONIN(+) 0.101 IS: IV ROCEPHIN Q24 IV AZITHROMYCIN Q24 ASA PO QD PROTONIX PO QD FLOMAX PO BID HEPARIN SQ Q12 : TELEMETRY STATUS DCP: FROM [facility]
[2019-12-05 16:00] VITALS: BP 127/79
--- NOTE | 2019-12-05 16:11 | General Progress Note ---
Assessment/Plan Problem List: (1) KELLEN (acute kidney injury) ICD Codes: N17.9 - Acute kidney failure, unspecified SNOMED: 2841042, 34425069 (2) Depression ICD Codes: F32.9 - Depression SNOMED: 66704291 (3) Diabetes ICD Codes: E11.9 - Diabetes SNOMED: 43383802 (4) HTN (hypertension) ICD Codes: I10 - HTN (hypertension) SNOMED: 66023347 (5) Atrial fibrillation ICD Codes: I48.91 - Unspecified atrial fibrillation SNOMED: 41204180 (6) History of COPD ICD Codes: Z87.09 - Personal history of other diseases of the respiratory system SNOMED: 572499736 Status: stable Assessment/Plan: Mr. Dubon is a 84 year old male with hx of HTN, DM2, presenting from SNF with decreased PO intake, and KELLEN. #Decreased PO intake #Failure to thrive #KELLEN - improving -d/c IVF -Nephrology consult appreciated. -Psychiatry consult appreciated. Mirtazipine started. #Cough #Leukocytosis #Left lung PNA -Continue empiric abx (Ceftriaxone, azithromycin 3/3- ) -CXR + for possible consolidation left lung -f/u sputum Cx. -flu panel neg. -Pulmonology consult appreciated. #DM2 -Continue insulin sliding scale + long acting. -POCT glucose. #BPH -Continue flomax. #GERD -continue PPI Time spent on encounter: 35 mins, >50% on counseling, coordination of care. Time of note does not reflect time of encounter. - Subjective Date patient seen: Dec 05, 2019 Time patient seen: 10:15 Constitutional: Denies: no symptoms, chills, diaphoresis, fever, malaise, weakness, other HEENT: Denies: no symptoms, eye pain, blurred vision, tearing, double vision, ear pain, ear discharge, nose pain, nose congestion, throat pain, throat swelling, mouth pain, mouth swelling, other Cardiovascular: Denies: no symptoms, chest pain, edema, irregular heart rate, lightheadedness, palpitations, syncope, other Respiratory: Denies: no symptoms, cough, orthopnea, shortness of breath, SOB with excertion, SOB at rest, sputum, stridor, wheezing, other Gastrointestinal/Abdominal: Denies: no symptoms, abdomen distended, abdominal pain, black stools, tarry stools, blood in stool, constipated, diarrhea, difficulty swallowing, nausea, poor appetite, poor fluid intake, rectal bleeding , vomiting, other Genitourinary: Denies: no symptoms, burning, discharge, frequency, flank pain, hematuria, incontinence, pain, urgency, other Neurologic/Psychiatric: Denies: no symptoms, anxiety, depressed, emotional problems, headache, numbness, paresthesia, pre-existing deficit, seizure, tingling, tremors, weakness, other Endocrine: Denies: no symptoms, excessive sweating, flushing, intolerance to cold, intolerance to heat, increased hunger, increased thirst, increased urine, unexplained weight gain, unexplained weight loss, other Hematologic/Lymphatic: Denies: no symptoms, anemia, easy bleeding, easy bruising, other Allergies: Coded Allergies: No Known Allergies (Unverified , 12/09/13) Subjective coughing, resting comfortably in bed. Objective Last 24 Hour Vital Signs Date Time Temp Pulse Resp B/P (MAP) Pulse Ox O2 Delivery O2 Flow Rate FiO2 12/05/19 12:00 87 12/05/19 12:00 96.3 81 21 125/58 (80) 96 12/05/19 09:00 Room Air 12/05/19 08:10 84 18 98 Room Air 21 12/05/19 08:00 97.4 90 18 117/74 (88) 97 12/05/19 08:00 99 12/05/19 04:00 96 12/05/19 04:00 97.3 96 20 141/61 (87) 97 12/05/19 00:00 97.7 103 20 131/64 (86) 96 12/05/19 00:00 104 12/04/19 21:00 Room Air 12/04/19 20:00 94 12/04/19 20:00 96.9 87 20 116/63 (80) 98 12/04/19 19:52 88 20 97 Room Air 21 Intake and Output 12/04/19 12/05/19 19:00 07:00 Intake Total 470 ml 180 ml Balance 470 ml 180 ml Intake Oral 470 ml 180 ml # Voids 4 2 # Bowel Movements 1 Laboratory Tests 12/05/19 05:10: White Blood Count 9.6, Red Blood Count 3.61L, Hemoglobin 11.1L, Hematocrit 32.8L , Mean Corpuscular Volume 91, Mean Corpuscular Hemoglobin 30.7, Mean Corpuscular Hemoglobin Concent 33.8, Red Cell Distribution Width 12.7, Platelet Count 144L, Mean Platelet Volume 6.4L, Neutrophils (%) (Auto) 79.6H, Lymphocytes (%) (Auto) 12.6L, Monocytes (%) (Auto) 5.9, Eosinophils (%) (Auto) 1.1, Basophils (%) (Auto) 0.8, Sodium Level 144#, Potassium Level 3.9, Chloride Level 112H, Carbon Dioxide Level 21, Anion Gap 11, Blood Urea Nitrogen 38H, Creatinine 1.6H, Estimat Glomerular Filtration Rate 41.3, Glucose Level 127H, Uric Acid 4.9, Calcium Level 8.8, Iron Level 32L, Total Iron Binding Capacity 145L, Percent Iron Saturation 22, Unsaturated Iron Binding 113, Ferritin 777H, Total Bilirubin 0.4, Aspartate Amino Transf (AST/SGOT) 25, Alanine Aminotransferase (ALT/SGPT) 29, Alkaline Phosphatase 102, Troponin I 0.101H, C- Reactive Protein, Quantitative 16.0H, Pro-B-Type Natriuretic Peptide 4273H, Total Protein 6.4, Albumin 2.3L, Globulin 4.1, Albumin/Globulin Ratio 0.6L, Vitamin B12 Level 757, Folate 67.2H, Thyroid Stimulating Hormone (TSH) 1.954 Height (Feet): 5 Height (Inches): 6.00 Weight (Pounds): 145 General Appearance: no apparent distress, alert Neck: supple Cardiovascular: normal rate, regular rhythm Respiratory/Chest: normal breath sounds, rhonchi - bilaterally Abdomen: soft Ismael Hudson M.D. Dec 05, 2019 16:11
--- NOTE | 2019-12-05 19:50 | NUR ---
HAND-OFF: Report given to .ALEYDA PHILIPPE.
--- NOTE | 2019-12-05 19:51 | NUR ---
NURSE NOTES: Got report from Chente PHILIPPE. Pt in stable condition. Denies any pain. No s/s of distress or discomfort noted. Pt resting in bed comfortably. Bed in low and locked position, call light within reach, bedside table within reach. Continue to monitor.
[2019-12-05 20:00] VITALS: BP 130/75
[2019-12-05] MEDS ORDERED: cefTRIAXone 1 GM in NS 55 ML IVPB SCH (21:00)
[2019-12-05] MEDS: Levemir Flexpen SUBQ SCH (21:00)
[2019-12-06] VITALS: BP 121/61
[2019-12-06 04:00] VITALS: BP 130/70
[2019-12-06] MEDS: NovoLOG Insulin Flexpen SUBQ SCH ×4 (06:30→21:48)
--- NOTE | 2019-12-06 07:20 | NUR ---
HAND-OFF: Report given to Bc PHILIPPE.
[2019-12-06 08:00] VITALS: BP 153/73
[2019-12-06] MEDS: Tamsulosin 0.4mg cap ORAL SCH ×2 (08:50→09:02)
[2019-12-06] MEDS: Aspirin EC 81mg tab ORAL SCH (08:50)
[2019-12-06] MEDS: Docusate 100mg cap ORAL SCH ×3 (08:50→17:11)
[2019-12-06] MEDS: Heparin 5000 units/ml inj SUBQ SCH ×2 (08:52→21:49)
--- NOTE | 2019-12-06 10:12 | NUR ---
*-* INSURANCE *-* ALL CLINICALS HAVE BEEN FAXED TO: TANISHA Odonnell # [phone]
--- NOTE | 2019-12-06 10:51 | Pulmonology Progress Note ---
Assessment/Plan Assessment/Plan IMPRESSION: 1. Left lung field pneumonia. 2. Hypertension. 3. Dementia. 4. residential resident. 5. Diabetes mellitus. DISCUSSION: Continue antibiotics. No influenza Continue intravenous fluids Respiratory hygiene with breathing treatment Diabetes control DVT prophylaxis. I will follow. Subjective Interval Events: None new Constitutional: Reports: no symptoms HEENT: Repors: no symptoms Respiratory: Reports: no symptoms Cardiovascular: Reports: no symptoms Allergies: Coded Allergies: No Known Allergies (Unverified , 12/09/13) Objective Last 24 Hour Vital Signs Date Time Temp Pulse Resp B/P (MAP) Pulse Ox O2 Delivery O2 Flow Rate FiO2 12/06/19 09:00 Room Air 12/06/19 08:00 91 12/06/19 08:00 98.7 83 20 153/73 (99) 98 12/06/19 07:15 90 18 97 Room Air 21 12/06/19 04:00 98.2 99 20 130/70 (90) 95 12/06/19 04:00 109 12/06/19 00:00 97.9 100 20 121/61 (81) 95 12/06/19 00:00 118 12/05/19 21:00 Room Air 12/05/19 20:04 83 18 97 Room Air 21 12/05/19 20:00 98.1 84 19 130/75 (93) 98 12/05/19 20:00 84 12/05/19 16:00 95 12/05/19 16:00 97.2 97 20 127/79 (95) 95 12/05/19 12:00 87 12/05/19 12:00 96.3 81 21 125/58 (80) 96 Intake and Output 12/05/19 12/06/19 19:00 07:00 Intake Total 180 ml Balance 180 ml Intake Oral 180 ml # Voids 3 2 General Appearance: no acute distress HEENT: normocephalic Respiratory/Chest: chest wall non-tender, lungs clear Cardiovascular: normal peripheral pulses Abdomen: normal bowel sounds Microbiology Date/Time Source Procedure Growth Status 12/04/19 12:30 Nasal Nares Left - Final Complete 12/04/19 12:30 Nasal Nares Left - Final Complete 12/04/19 12:30 Sputum Gram Stain - Final Complete 12/04/19 12:30 Sputum Sputum Culture - Final NORMAL UPPER RESPIRATORY ANG AT 48 ... Complete 12/03/19 23:50 Nasal Nares MRSA Culture - Final Staphylococcus Aureus - Mrsa Complete 12/03/19 23:50 Rectum - Final NO CARBAPENEM-RESISTANT ENTEROBACTERI... Complete 12/03/19 23:50 Rectum VRE Culture - Final Enterococcus Faecium - Vre Complete Current Medications Medications (Trade) Dose Ordered Sig/Breanna Route PRN Reason Start Time Stop Time Status Last Admin Dose Admin Acetaminophen (Tylenol) 650 mg Q6H PRN ORAL Mild Pain/Temp > 100.5 12/03/19 22:00 01/02/20 21:59 Albuterol/ Ipratropium (Albuterol/ Ipratropium) 3 ml Q6H PRN HHN Shortness of Breath 12/03/19 22:00 12/08/19 21:59 Aspirin (Ecotrin) 81 mg DAILY ORAL 12/04/19 09:00 01/03/20 08:59 12/06/19 08:50 Azithromycin 500 mg/Sodium Chloride 275 ml @ 275 mls/hr Q24HRS IV 12/05/19 14:00 12/10/19 14:59 12/05/19 14:01 Ceftriaxone Sodium 1 gm/ Sodium Chloride 55 ml @ 110 mls/hr QHS IVPB 12/05/19 21:00 12/12/19 20:59 12/05/19 20:59 Dextrose (Dextrose 50%) 25 ml Q30M PRN IV Hypoglycemia 12/03/19 22:00 01/02/20 21:59 Dextrose (Dextrose 50%) 50 ml Q30M PRN IV Hypoglycemia 12/03/19 22:00 01/02/20 21:59 Diphenhydramine HCl (Benadryl) 25 mg Q6H PRN ORAL Itching/Pruritis 12/03/19 22:00 01/02/20 21:59 Docusate Sodium (Colace) 100 mg TID ORAL 12/04/19 13:00 01/03/20 08:59 12/06/19 08:50 Heparin Sodium (Porcine) (Heparin 5000 units/ml) 5,000 units EVERY 12 HOURS SUBQ 12/04/19 09:00 01/03/20 08:59 12/06/19 08:52 Insulin Aspart (NovoLOG) BEFORE MEALS AND HS SUBQ 12/04/19 06:30 01/03/20 06:29 12/04/19 17:02 Insulin Detemir (Levemir) 8 units BEDTIME SUBQ 12/04/19 21:00 01/03/20 20:59 12/04/19 20:52 Mirtazapine (Remeron) 15 mg BEDTIME ORAL 12/04/19 21:00 01/03/20 20:59 12/05/19 20:58 Ondansetron HCl (Zofran) 4 mg Q6H PRN IVP Nausea & Vomiting 12/03/19 22:00 01/02/20 21:59 Pantoprazole (Protonix) 40 mg DAILY ORAL 12/04/19 09:00 01/03/20 08:59 12/06/19 08:50 Tamsulosin HCl (Flomax) 0.4 mg BID ORAL 12/04/19 09:00 01/03/20 08:59 12/06/19 08:50 Kenyon Garcia MD Dec 06, 2019 10:51
--- NOTE | 2019-12-06 10:59 | Cardiac Electrophysiology PN ---
Subjective Subjective CARDIOLOGY CONSULT DICTAED 5510515 1. Ischemic cardiomyopathy, EF 50% in 08/2019 and high BNP.Repeat ECho Off Coreg as was migdalia down to 30s in prior admission On lisinopril 2. 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 Off Coreg. No CP. 3. Paroxysmal atrial fibrillation, remained in sinus rhythm, first-degree AV block. Off anticoagulation and was off even at the [facility] 4. Hyperlipidemia on Lipitor. 5. Urinary tract infection. 6. Hospital-acquired pneumonia. Objective Last 24 Hour Vital Signs Date Time Temp Pulse Resp B/P (MAP) Pulse Ox O2 Delivery O2 Flow Rate FiO2 12/06/19 09:00 Room Air 12/06/19 08:00 91 12/06/19 08:00 98.7 83 20 153/73 (99) 98 12/06/19 07:15 90 18 97 Room Air 21 12/06/19 04:00 98.2 99 20 130/70 (90) 95 12/06/19 04:00 109 12/06/19 00:00 97.9 100 20 121/61 (81) 95 12/06/19 00:00 118 12/05/19 21:00 Room Air 12/05/19 20:04 83 18 97 Room Air 21 12/05/19 20:00 98.1 84 19 130/75 (93) 98 12/05/19 20:00 84 12/05/19 16:00 95 12/05/19 16:00 97.2 97 20 127/79 (95) 95 12/05/19 12:00 87 12/05/19 12:00 96.3 81 21 125/58 (80) 96 Intake and Output 12/05/19 12/06/19 19:00 07:00 Intake Total 180 ml Balance 180 ml Intake Oral 180 ml # Voids 3 2 Laboratory Tests Test 12/06/19 10:30 White Blood Count Pending Red Blood Count Pending Hemoglobin Pending Hematocrit Pending Mean Corpuscular Volume Pending Mean Corpuscular Hemoglobin Pending Mean Corpuscular Hemoglobin Concent Pending Red Cell Distribution Width Pending Platelet Count Pending Mean Platelet Volume Pending Neutrophils (%) (Auto) Pending Lymphocytes (%) (Auto) Pending Monocytes (%) (Auto) Pending Eosinophils (%) (Auto) Pending Basophils (%) (Auto) Pending Sodium Level Pending Potassium Level Pending Chloride Level Pending Carbon Dioxide Level Pending Blood Urea Nitrogen Pending Creatinine Pending Estimat Glomerular Filtration Rate Pending Glucose Level Pending Calcium Level Pending Microbiology Date/Time Source Procedure Growth Status 12/04/19 12:30 Nasal Nares Left - Final Complete 12/04/19 12:30 Nasal Nares Left - Final Complete 12/04/19 12:30 Sputum Gram Stain - Final Complete 12/04/19 12:30 Sputum Sputum Culture - Final NORMAL UPPER RESPIRATORY ANG AT 48 ... Complete 12/03/19 23:50 Nasal Nares MRSA Culture - Final Staphylococcus Aureus - Mrsa Complete 12/03/19 23:50 Rectum - Final NO CARBAPENEM-RESISTANT ENTEROBACTERI... Complete 12/03/19 23:50 Rectum VRE Culture - Final Enterococcus Faecium - Vre Complete Sixto Wiggins MD Dec 06, 2019 10:59
[2019-12-06 11:00] LABS: BASOPHILS % (AUTO) 0.7 % (0.0-2.0); EOSINOPHILS % (AUTO) 1.5 % (0.0-3.0); HEMATOCRIT 32.1 % (42.0-52.0); HEMOGLOBIN 10.9 G/DL (14.2-18.0); LYMPHOCYTES % (AUTO) 10.1 % (20.0-45.0); MEAN CORPUSCULAR VOLUME 90 FL (80-99); MONOCYTES % (AUTO) 5.2 % (1.0-10.0); NEUTROPHILS % (AUTO) 82.5 % (45.0-75.0); PLATELET COUNT 161 K/UL (150-450); RED BLOOD COUNT 3.55 M/UL (4.70-6.10); RED CELL DISTRIBUTION WIDTH 12.4 % (11.6-14.8); WHITE BLOOD COUNT 10.4 K/UL (4.8-10.8)
--- NOTE | 2019-12-06 11:05 | General Progress Note ---
Assessment/Plan Problem List: (1) KELLEN (acute kidney injury) ICD Codes: N17.9 - Acute kidney failure, unspecified SNOMED: 7932753, 40037918 (2) Depression ICD Codes: F32.9 - Depression SNOMED: 91833357 (3) Diabetes ICD Codes: E11.9 - Diabetes SNOMED: 65603943 (4) HTN (hypertension) ICD Codes: I10 - HTN (hypertension) SNOMED: 31120404 (5) Atrial fibrillation ICD Codes: I48.91 - Unspecified atrial fibrillation SNOMED: 82047471 (6) History of COPD ICD Codes: Z87.09 - Personal history of other diseases of the respiratory system SNOMED: 314746475 Status: stable Assessment/Plan: Mr. Dubon is a 84 year old male with hx of HTN, DM2, presenting from SNF with decreased PO intake, and KELLEN. #Decreased PO intake #Failure to thrive #KELLEN - improving -d/c IVF -Nephrology consult appreciated. -Psychiatry consult appreciated. Mirtazipine started. #Cough #Leukocytosis #Left lung PNA -Continue empiric abx (Ceftriaxone, azithromycin 3/- ) -CXR + for possible consolidation left lung -f/u sputum Cx. -flu panel neg. -Pulmonology consult appreciated. #Chronic CH #Elevated troponin BNP elevated. trop leak. likely from renal failure. -cardiology consult appreciated. -coreg previously held for bradycardia. #DM2 -Continue insulin sliding scale + long acting. -POCT glucose. #BPH -Continue flomax. #GERD -continue PPI Time spent on encounter: 35 mins, >50% on counseling, coordination of care. Time of note does not reflect time of encounter. - Subjective Date patient seen: Dec 06, 2019 Time patient seen: 11:00 Constitutional: Denies: no symptoms, chills, diaphoresis, fever, malaise, weakness, other HEENT: Denies: no symptoms, eye pain, blurred vision, tearing, double vision, ear pain, ear discharge, nose pain, nose congestion, throat pain, throat swelling, mouth pain, mouth swelling, other Cardiovascular: Denies: no symptoms, chest pain, edema, irregular heart rate, lightheadedness, palpitations, syncope, other Respiratory: Denies: no symptoms, cough, orthopnea, shortness of breath, SOB with excertion, SOB at rest, sputum, stridor, wheezing, other Gastrointestinal/Abdominal: Denies: no symptoms, abdomen distended, abdominal pain, black stools, tarry stools, blood in stool, constipated, diarrhea, difficulty swallowing, nausea, poor appetite, poor fluid intake, rectal bleeding , vomiting, other Genitourinary: Denies: no symptoms, burning, discharge, frequency, flank pain, hematuria, incontinence, pain, urgency, other Neurologic/Psychiatric: Denies: no symptoms, anxiety, depressed, emotional problems, headache, numbness, paresthesia, pre-existing deficit, seizure, tingling, tremors, weakness, other Endocrine: Denies: no symptoms, excessive sweating, flushing, intolerance to cold, intolerance to heat, increased hunger, increased thirst, increased urine, unexplained weight gain, unexplained weight loss, other Hematologic/Lymphatic: Denies: no symptoms, anemia, easy bleeding, easy bruising, other Allergies: Coded Allergies: No Known Allergies (Unverified , 12/09/13) Subjective in bed, appears drowsy but arousable to voice. denies any complaints Objective Last 24 Hour Vital Signs Date Time Temp Pulse Resp B/P (MAP) Pulse Ox O2 Delivery O2 Flow Rate FiO2 12/06/19 09:00 Room Air 12/06/19 08:00 91 12/06/19 08:00 98.7 83 20 153/73 (99) 98 12/06/19 07:15 90 18 97 Room Air 21 12/06/19 04:00 98.2 99 20 130/70 (90) 95 12/06/19 04:00 109 12/06/19 00:00 97.9 100 20 121/61 (81) 95 12/06/19 00:00 118 12/05/19 21:00 Room Air 12/05/19 20:04 83 18 97 Room Air 21 12/05/19 20:00 98.1 84 19 130/75 (93) 98 12/05/19 20:00 84 12/05/19 16:00 95 12/05/19 16:00 97.2 97 20 127/79 (95) 95 12/05/19 12:00 87 12/05/19 12:00 96.3 81 21 125/58 (80) 96 Intake and Output 12/05/19 12/06/19 19:00 07:00 Intake Total 180 ml Balance 180 ml Intake Oral 180 ml # Voids 3 2 Laboratory Tests 12/06/19 10:30: White Blood Count [Pending], Red Blood Count [Pending], Hemoglobin [Pending], Hematocrit [Pending], Mean Corpuscular Volume [Pending], Mean Corpuscular Hemoglobin [Pending], Mean Corpuscular Hemoglobin Concent [Pending], Red Cell Distribution Width [Pending], Platelet Count [Pending], Mean Platelet Volume [ Pending], Neutrophils (%) (Auto) [Pending], Lymphocytes (%) (Auto) [Pending], Monocytes (%) (Auto) [Pending], Eosinophils (%) (Auto) [Pending], Basophils (%) (Auto) [Pending], Sodium Level [Pending], Potassium Level [Pending], Chloride Level [Pending], Carbon Dioxide Level [Pending], Blood Urea Nitrogen [Pending], Creatinine [Pending], Estimat Glomerular Filtration Rate [Pending], Glucose Level [Pending], Calcium Level [Pending] Height (Feet): 5 Height (Inches): 6.00 Weight (Pounds): 145 General Appearance: no apparent distress, alert Neck: supple Cardiovascular: normal rate, regular rhythm Respiratory/Chest: lungs clear, normal breath sounds Abdomen: non tender, soft Neurologic: alert, responsive Ismael Hudson M.D. Dec 06, 2019 11:05
[2019-12-06 11:15] LABS: ANION GAP 12 mmol/L (5-15); BLOOD UREA NITROGEN 28 mg/dL (7-18); CALCIUM 9.1 MG/DL (8.5-10.1); CARBON DIOXIDE 19 MMOL/L (21-32); CHLORIDE 113 MMOL/L (98-107); CREATININE 1.4 MG/DL (0.55-1.30); POTASSIUM 4.1 MMOL/L (3.5-5.1); SODIUM 144 MMOL/L (136-145)
[2019-12-06 12:00] VITALS: BP 149/55
--- NOTE | 2019-12-06 13:31 | Nephrology Progress Note ---
Assessment/Plan Problem List: (1) Renal failure (ARF), acute on chronic (2) Diabetes (3) HTN (hypertension) (4) Anemia Assessment Acute on chronic kidney disease likely diabetes mellitus and hypertension. Patient had echogenic kidneys on previous kidney ultrasound on August 2019 Hypertension Diabetes mellitus History of pleural effusion Ejection fraction of 50% in previous echocardiogram in August 2019 Mild Anemia BPH . Plan Monitor renal parameters Keep the blood sugar and blood pressure and check Continue Flomax. DC IV hydrate Check chest x-ray. Initiate anemia work-up. Continue per consultants. Subjective ROS Limited/Unobtainable: No Constitutional: Reports: malaise Objective Objective Last 24 Hour Vital Signs Date Time Temp Pulse Resp B/P (MAP) Pulse Ox O2 Delivery O2 Flow Rate FiO2 12/06/19 12:00 96 12/06/19 12:00 96.7 81 19 149/55 (86) 100 12/06/19 09:00 Room Air 12/06/19 08:00 91 12/06/19 08:00 98.7 83 20 153/73 (99) 98 12/06/19 07:15 90 18 97 Room Air 21 12/06/19 04:00 98.2 99 20 130/70 (90) 95 12/06/19 04:00 109 12/06/19 00:00 97.9 100 20 121/61 (81) 95 12/06/19 00:00 118 12/05/19 21:00 Room Air 12/05/19 20:04 83 18 97 Room Air 21 12/05/19 20:00 98.1 84 19 130/75 (93) 98 12/05/19 20:00 84 12/05/19 16:00 95 12/05/19 16:00 97.2 97 20 127/79 (95) 95 Intake and Output 12/05/19 12/06/19 19:00 07:00 Intake Total 180 ml Balance 180 ml Intake Oral 180 ml # Voids 3 2 Current Medications Medications (Trade) Dose Ordered Sig/Breanna Route PRN Reason Start Time Stop Time Status Last Admin Dose Admin Acetaminophen (Tylenol) 650 mg Q6H PRN ORAL Mild Pain/Temp > 100.5 12/03/19 22:00 01/02/20 21:59 Albuterol/ Ipratropium (Albuterol/ Ipratropium) 3 ml Q6H PRN HHN Shortness of Breath 12/03/19 22:00 12/08/19 21:59 Aspirin (Ecotrin) 81 mg DAILY ORAL 12/04/19 09:00 01/03/20 08:59 12/06/19 08:50 Azithromycin 500 mg/Sodium Chloride 275 ml @ 275 mls/hr Q24HRS IV 12/05/19 14:00 12/10/19 14:59 12/05/19 14:01 Ceftriaxone Sodium 1 gm/ Sodium Chloride 55 ml @ 110 mls/hr QHS IVPB 12/05/19 21:00 12/12/19 20:59 12/05/19 20:59 Dextrose (Dextrose 50%) 25 ml Q30M PRN IV Hypoglycemia 12/03/19 22:00 01/02/20 21:59 Dextrose (Dextrose 50%) 50 ml Q30M PRN IV Hypoglycemia 12/03/19 22:00 01/02/20 21:59 Diphenhydramine HCl (Benadryl) 25 mg Q6H PRN ORAL Itching/Pruritis 12/03/19 22:00 01/02/20 21:59 Docusate Sodium (Colace) 100 mg TID ORAL 12/04/19 13:00 01/03/20 08:59 12/06/19 08:50 Heparin Sodium (Porcine) (Heparin 5000 units/ml) 5,000 units EVERY 12 HOURS SUBQ 12/04/19 09:00 01/03/20 08:59 12/06/19 08:52 Insulin Aspart (NovoLOG) BEFORE MEALS AND HS SUBQ 12/04/19 06:30 01/03/20 06:29 12/04/19 17:02 Insulin Detemir (Levemir) 8 units BEDTIME SUBQ 12/04/19 21:00 01/03/20 20:59 12/04/19 20:52 Mirtazapine (Remeron) 15 mg BEDTIME ORAL 12/04/19 21:00 01/03/20 20:59 12/05/19 20:58 Ondansetron HCl (Zofran) 4 mg Q6H PRN IVP Nausea & Vomiting 12/03/19 22:00 01/02/20 21:59 Pantoprazole (Protonix) 40 mg DAILY ORAL 12/04/19 09:00 01/03/20 08:59 12/06/19 08:50 Tamsulosin HCl (Flomax) 0.4 mg BID ORAL 12/04/19 09:00 01/03/20 08:59 12/06/19 08:50 Laboratory Tests 12/06/19 10:30: White Blood Count 10.4, Red Blood Count 3.55L, Hemoglobin 10.9L, Hematocrit 32.1L, Mean Corpuscular Volume 90, Mean Corpuscular Hemoglobin 30.7, Mean Corpuscular Hemoglobin Concent 34.0, Red Cell Distribution Width 12.4, Platelet Count 161, Mean Platelet Volume 6.4L, Neutrophils (%) (Auto) 82.5H, Lymphocytes (%) (Auto) 10.1L, Monocytes (%) (Auto) 5.2, Eosinophils (%) (Auto) 1.5, Basophils (%) (Auto) 0.7, Sodium Level 144, Potassium Level 4.1, Chloride Level 113H, Carbon Dioxide Level 19L, Anion Gap 12, Blood Urea Nitrogen 28H, Creatinine 1.4H, Estimat Glomerular Filtration Rate 48.2, Glucose Level 148H, Calcium Level 9.1 Height (Feet): 5 Height (Inches): 6.00 Weight (Pounds): 145 General Appearance: no apparent distress Cardiovascular: tachycardia Respiratory/Chest: decreased breath sounds Abdomen: soft Bill Redman MD Dec 06, 2019 13:31
[2019-12-06] MEDS: Azithromycin 500 MG in NS 275 ML IV SCH (14:27)
--- NOTE | 2019-12-06 14:48 | NUR ---
NURSE NOTES: Called and spoke with Dr. Hudson, informed Dr. Hudson that patient failed speech therapy swallow evaluation and recommended NGT insertion. Dr. Hudson acknowledged and ordered NGT insertion. Also informed Dr. Hudson that per assessment, pt's left pupil sluggish than right, slurred speech, and bilateral arm strength good, reacts to pain on bilateral toes. Dr. Hudson acknowledged and ordered Head CT w/o contrast. Order entered, noted, and carried out. Will continue to monitor patient.
--- NOTE | 2019-12-06 15:20 | NUR ---
ST NOTES: REFERRED FOR SWALLOW EVAL BY DR CHAMPAGNE (DR CALLAHAN PRIMARY MD), SEE FULL REPORT. DYSPHAGIA RISK FACTORS FOR THIS 84 Y.O.M.: ACUTE ISSUES: ABNORMAL LABS, L LUNG FIELD PNA PER DR ALVAREZ, ACUTE ON CHRONIC RENAL FAILURE, METABOLIC ACIDOSIS, POOR APPETITE AND ONGOING COUGH, CONFUSED H/O PNAs (RECURRENT IN 12/2017 AND 12/2013), MILD OROPHARYNGEAL DYSPHAGIA, GERD, DEMENTIA, COPD, MDD, IDDM, AKF, NM. POLST: OK TO HAVE HALF-WAY TUBE FEEDINGS IF NEEDS AT SNF ON A [employer] FORTIFIED MECH SOFT CHOPPED DIET AND THIN LIQUIDS WITH HEALTH SHAKE (POOR INTAKE FEW DAYS). ON [place] [facility] [place] HAD MILD OP DYSPHAGIA AND PLACED ON MECH SOFT CHOPPED DIET AND THIN LIQUIDS (MOD BARIUM SWALLOW STUDY RECOMMENDED NOT COMPLETED DUE TO SCHEDULE CONFLICTS SO RECOMMENDED OUTPATIENT UPON TRANSFER TO SNF. UNKNOWN IF HE EVER HAD THIS STUDY. NOW ON A REG TEXTURE DIET AND THIN LIQUIDS BUT NOT GIVEN MEAL UNTIL SWALLOW EVAL. ALERT BUT FALLS ASLEEP WHEN NOT STIMULATED. APPEARS TIRED AND WEAK. ON ROOM AIR AND RESP RATE AT 18-19 BPM AND FIO2 21 WITH GOOD 95-100 SP02 ON ROOM INITIAL IMPRESSIONS: S/S OF A SIGNIFICANT OROPHARYNGEAL DYSPHAGIA WITH INCREASED OP TRANSIT TIMES GIVEN TSP NECTAR THICK LIQUIDS, CHEWED UNNECESSARILY FOR 5 SECONDS SWALLOWED WITH EFFORT (WEAK HYOLARYNGEAL EXCURSIONS), THEN SWALLOWED AGAIN WITH EFFORT AND COUGHED AFTER THE SWALLOW. REQUIRED PHARYNGEAL SUCTION BACK OF THROAT OF MILD AMOUNTS OF NECTAR THICK WATER AND LATER HE WAS ABLE TO COUGH UP SOME SMALL AMOUNTS OF THE PHARYNGEAL NECTAR THICK WATER RESIDUE. DISLIKES SUCTION. HIGH RISK FOR SILENT ASPIRATION GIVEN DEMENTIA AND CURRENT AND PRIOR PNEUMONIAS RECOMMENDATIONS: KEEP NPO AND INITIATE NONORAL NGT (12 [place]) FEEDINGS AND ORAL CARE/SUCTION COMPLETE MODIFIED BARIUM SWALLOW STUDY WHEN READY TO FURTHER ASSESS SWALLOW, DETERMINE SILENT ASPIRATION, AND ATTEMPT TRIAL TX TECHNIQUES EDUCATED/TRAINED STAFF IN POSTED ORAL CARE/SUCTION AND ASPIRATION PRECAUTIONS WHEN NGT FEEDINGS ARE RUNNING. SKILLED DYSPHAGIA MANAGEMENT AND TX AND COGNITIVE-COMMUNICATIVE EVAL/TX FOR COMMUNICATION TIPS RNHAYDEE, TO CALL MD AND GET ORDER FOR NGT AND RD TO RECOMMEND FORMULA (LEFT MESSAGE WITH RDs)
--- NOTE | 2019-12-06 15:27 | Diagnostic Imaging Report ---
Indication: Headache Technique: Contiguous 5 mm thick transaxial imaging of the head obtained in a Siemens Sensation [address] scanner. Soft tissue and bone windows generated. Automatic Exposure Control was utilized. Total Dose length Product (DLP): 992.1mGycm CT Dose Index Volume (CTDIvol): 53.4 mGy Comparison: none Findings: There is moderate prominence of the ventricles, basal cisterns, and cerebral sulci consistent with atrophy. Moderate, nonspecific, white matter hypoattenuation is noted throughout the brain consistent with chronic small vessel disease. There is no midline shift, edema, acute hemorrhage, mass effect, or abnormal extra-axial fluid collections. Bones are unremarkable. There is extensive opacification of the visualized paranasal sinuses. Impression: No acute intracranial bleed, mass effect or edema. Moderate atrophy of the brain. Evidence of chronic small vessel disease involving white matter tracts. Pansinusitis The CT scanner at [facility] is accredited by the [employer] and the scans are performed using dose optimization techniques as appropriate to a performed exam including Automatic Exposure control.
--- NOTE | 2019-12-06 15:36 | NUR ---
CASE MANAGEMENT:REVIEW 12/06/19 SI: PNA. AC/CHR RENAL FAILURE POOR APPETITE 96.7 96 19 149/55 100% ON RA H/H-10.9/32.1 BUN+28 CR+1.4 IS: IV ROCEPHIN Q24 IV AZITHROMYCIN Q24 ASA PO QD PROTONIX PO QD FLOMAX PO BID HEPARIN SQ Q12 : TELEMETRY STATUS DCP: FROM [facility] PLAN: SWALLOW EVAL DOWNGRADE TO MED/SURG
--- NOTE | 2019-12-06 15:45 | Consultation ---
DATE OF CONSULTATION: 12/06/2019 CARDIOLOGY CONSULTATION CONSULTING PHYSICIAN: Sixto Wiggins M.D. REFERRING PHYSICIAN: Dr. Leeroy Acevedo. ADDITIONAL REFERRING PHYSICIAN: Miguelangel Frederick M.D. REASON FOR CONSULTATION: Elevated troponin. The patient with history of coronary artery bypass graft as well as history of atrial fibrillation and congestive heart failure. HISTORY OF PRESENT ILLNESS: The patient is an 84-year-old gentleman that I am quite familiar from previous admission to [facility]. The patient has history of hypertension, diabetes, paroxysmal atrial fibrillation, congestive heart failure due to systolic and diastolic dysfunction, ejection fraction of around 45% to 50%. The patient also has COPD and dementia and had recent hospitalization with pneumonia. The patient was brought from [facility] for decreased p.o. intake and was found to have acute renal failure. The patient does not eat much and is not able to provide meaningful information. His troponin was again mildly elevated. BNP was high as well. On the previous admission, the patient was bradycardic and his Coreg was discontinued. REVIEW OF SYSTEMS: Review of systems was negative other than what is mentioned in the history of present illness. PAST MEDICAL HISTORY: As mentioned above. FAMILY HISTORY: Noncontributory. SOCIAL HISTORY: [place] lives [place]. Does not smoke or drink alcohol. PHYSICAL EXAMINATION: VITAL SIGNS: Blood pressure is 152/73, pulse 83, respirations 18, and temperature 98.7. HEAD AND NECK: Shows mild JVD. LUNGS: Coarse rhonchi. CARDIOVASCULAR: Regular S1 and S2 with no gallop. Sternotomy scar is intact. ABDOMEN: Soft. EXTREMITIES: No pitting edema. LABORATORY DATA: Labs show white count 9.6, hemoglobin 11.1, hematocrit 32.8, and platelet count of 244. Sodium 144, potassium 3.9, BUN 50, creatinine of 2.0 and currently BUN and creatinine 38 and 1.6, glucose 127. Troponin 0.101. BNP is 4273. ASSESSMENT AND PLAN: 1. Troponin leak in the patient with history of coronary artery bypass graft. Troponin leak could be due to renal failure. The patient does not have any chest pain. Keep the patient off beta roseanna as the patient was profoundly bradycardic in the previous admission. Continue aspirin 81 mg daily. If the heart rate remains stable, may start him on very low-dose Coreg. 2. Ischemic cardiomyopathy, ejection fraction of 45% to 50%. We will repeat echocardiogram. Off Lasix, the patient is currently dehydrated. If renal failure improves, I put him back on BRANDT inhibitor, otherwise he may benefit from hydralazine and depending on the echocardiogram report. 3. Paroxysmal atrial fibrillation, currently in sinus rhythm on aspirin, off beta-roseanna. 4. Diabetes. 5. Pneumonia on IV antibiotics. Thank you very much, Dr. Frederick and Dr. Umaña for allowing me to participate in the care of this patient. Please do not hesitate to contact me if you have any questions regarding my evaluation. Sincerely, Sixto Wiggins M.D. DR: Tommy JOB#: [id number] CC:
--- NOTE | 2019-12-06 15:50 | NUR ---
RD ASSESSMENT & RECOMMENDATIONS SEE CARE ACTIVITY FOR COMPLETE ASSESSMENT DAILY ESTIMATED NEEDS: Needs based on DM/ 66kg 25-30 kcals/kg 2002-8211 total kcals 1-1.3 g protein/kg 66-86 g total protein 25-30 mL/kg 3997-1152 total fluid mLs NUTRITION DIAGNOSIS: Swallowing difficulty R/T dysphagia as evidenced by PATTERN ILLUSTRATOR recommends NPO, nonoral feeding at this time, w/ an order for NGT insertion. CURRENT DIET:NPO PO DIET RECOMMENDATIONS: WHEN SAFE FOR ORAL DIET -> CCHO MED + LOW NA / texture per PATTERN ILLUSTRATOR ENTERAL NUTRITION RECOMMENDATIONS: Glucerna 1.2 @ 60ml/hr x 24 hrs to provide 1440ml, 1728kcal, 86g prot, 1159ml free water * W/ GI access, initiate Glucerna 1.2 @ 20ml/hr x 6 hrs * Advance 10ml q 4-6 hrs as tolerated to goal rate * HOB over 30 degrees * H20 flush of 150ml q 6 hrs ADDITIONAL RECOMMENDATIONS: * Calibrated bedscale wt for accurate CBW * Monitor lytes, replete as needed * Monitor BGs closely w/ TF, need to adjust insulin * Monitor readiness for oral diet . .
[2019-12-06 16:00] VITALS: BP 141/76
--- NOTE | 2019-12-06 16:00 | NUR ---
NURSE NOTES: Called and informed Dr. Hudson that this nurse and speech therapist attempted to insert NGT multiple times, all unsuccessful, blockage noted on both nares, unsafe to proceed further with NGT. Dr. Hudson acknowledged and gave no new orders regarding NGT. Also made aware of Head CT results. Dr. Hudson acknowledged and gave no new orders at this time regarding Head CT results. Will continue to monitor patient.
[2019-12-06] MEDS ORDERED: Acetaminophen 650mg/20.3ml ORAL PRN (18:30)
--- NOTE | 2019-12-06 18:30 | NUR ---
TRANSFER TO FLOOR: Patient transferred to Med Surg Room 410 Bed 1, per Dr. Hudson. Report given to DENAE Alarcon . Belongings and medications given to DENAE Alarcon. Patient does not have family.
--- NOTE | 2019-12-06 18:42 | NUR ---
NURSE NOTES: Received report from DENAE Meléndez. Patient is sitting up in bed, awake, confused, on room air, respirations at 15 breaths per minute, in no apparent distress.
[2019-12-06] MEDS ORDERED: DiphenhydrAMINE 25mg Tab ORAL PRN (19:00)
[2019-12-06] MEDS ORDERED: Albuterol/Ipratropium 3ml neb HHN PRN (19:00)
--- NOTE | 2019-12-06 19:15 | NUR ---
NURSE NOTES: Pt. received from DENAE Pardo. Pt. AAOx2, on room air, no complaints of pain, no indications of respiratory distress. IV right wrist 18g, asymptomatic, intact, and patent. Bed is low and locked, side rails x2 up, bed alarm active, and call light is in reach. Will continue to monitor.
--- NOTE | 2019-12-06 19:51 | NUR ---
HAND-OFF: Report given to Zach Carney RN. Patient sitting HOB at 45 degrees, patient is awake and confused, on room air, respirations at 15 breaths per minute, no SOB, no c/o pain, in no apparent distress. Bed in lowest position, side rails up x 2, call light within reach.
[2019-12-06 20:00] VITALS: BP 116/64
[2019-12-06] MEDS: cefTRIAXone 1 GM in NS 55 ML IVPB SCH (21:44)
[2019-12-06] MEDS: Levemir Flexpen SUBQ SCH (21:48)
[2019-12-07] VITALS: BP 140/76
[2019-12-07 04:00] VITALS: BP 151/78
--- NOTE | 2019-12-07 05:00 | Progress Note ---
DATE: 12/07/2019 SUBJECTIVE: The patient is the same. Compliant with medications. No behavior issues noted. MENTAL STATUS EXAMINATION: The patient is alert and oriented times self and place. Mood is Affect is flat. Thought process is concrete. Thought content, no suicidal or homicidal ideation. Cognition is impaired. ASSESSMENT: 1. Major depressive disorder. 2. Dementia. PLAN: 1. Remeron is to stimulate his appetite. 2. medication gradually. Ana Chao M.D. DR: HEATHER JOB#: [id number] CC: PRECIOUS
[2019-12-07] MEDS: NovoLOG Insulin Flexpen SUBQ SCH ×4 (06:12→20:35)
[2019-12-07 06:47] LABS: EOSINOPHILS % (AUTO) 1.4 % (0.0-3.0); HEMATOCRIT 32.7 % (42.0-52.0); HEMOGLOBIN 11.1 G/DL (14.2-18.0); LYMPHOCYTES % (AUTO) 12.9 % (20.0-45.0); MEAN CORPUSCULAR VOLUME 90 FL (80-99); MONOCYTES % (AUTO) 5.9 % (1.0-10.0); NEUTROPHILS % (AUTO) 78.8 % (45.0-75.0); PLATELET COUNT 178 K/UL (150-450); RED BLOOD COUNT 3.62 M/UL (4.70-6.10); RED CELL DISTRIBUTION WIDTH 12.6 % (11.6-14.8)
[2019-12-07 07:10] LABS: ANION GAP 15 mmol/L (5-15); BLOOD UREA NITROGEN 24 mg/dL (7-18); CALCIUM 9.5 MG/DL (8.5-10.1); CARBON DIOXIDE 18 MMOL/L (21-32); CHLORIDE 113 MMOL/L (98-107); CREATININE 1.5 MG/DL (0.55-1.30); POTASSIUM 3.8 MMOL/L (3.5-5.1); SODIUM 145 MMOL/L (136-145)
--- NOTE | 2019-12-07 07:35 | NUR ---
NURSE NOTES: Received report from DENAE Serrano. Patient in bed, sleeping. On room air, no signs of distress or labored breathing. IV intact, patent, and saline locked. Bed in lowest position with call light in reach. HOB above 30 degrees. Will continue with plan of care.
--- NOTE | 2019-12-07 07:38 | NUR ---
HAND-OFF: Report given to DENAE Estrella.
--- NOTE | 2019-12-07 07:53 | Cardiac Electrophysiology PN ---
Assessment/Plan Assessment/Plan 1. Ischemic cardiomyopathy, EF 50% in 08/2019 and high BNP.Repeat ECho pending Off Coreg as was migdalia down to 30s in prior admission and now in 50s. On lisinopril 2. 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 Off Coreg. No CP. 3. Paroxysmal atrial fibrillation, remained in sinus rhythm, first-degree AV block. Off anticoagulation and was off even at the [facility] 4. Hyperlipidemia on Lipitor. 5. Urinary tract infection. 6. Hospital-acquired pneumonia. DARON RN Subjective Subjective No events. Transferred to [facility]. Objective Last 24 Hour Vital Signs Date Time Temp Pulse Resp B/P (MAP) Pulse Ox O2 Delivery O2 Flow Rate FiO2 12/07/19 04:00 98.5 58 16 151/78 (102) 97 12/07/19 00:00 98.3 60 16 140/76 (97) 97 12/06/19 21:00 Room Air 12/06/19 20:00 97.9 56 18 116/64 (81) 96 12/06/19 19:00 89 18 96 Room Air 21 12/06/19 16:00 97.6 82 20 141/76 (97) 100 12/06/19 16:00 91 12/06/19 12:00 96 12/06/19 12:00 96.7 81 19 149/55 (86) 100 12/06/19 09:00 Room Air 12/06/19 08:00 91 12/06/19 08:00 98.7 83 20 153/73 (99) 98 Intake and Output 12/06/19 12/07/19 19:00 07:00 Intake Total 60 ml 55 ml Output Total 450 ml Balance 60 ml -395 ml Intake Oral 60 ml IV Total 55 ml Output Urine Total 450 ml # Voids 2 Laboratory Tests Test 12/06/19 10:30 12/07/19 06:05 White Blood Count 10.4 K/UL (4.8-10.8) 10.0 K/UL (4.8-10.8) Red Blood Count 3.55 M/UL (4.70-6.10) L 3.62 M/UL (4.70-6.10) L Hemoglobin 10.9 G/DL (14.2-18.0) L 11.1 G/DL (14.2-18.0) L Hematocrit 32.1 % (42.0-52.0) L 32.7 % (42.0-52.0) L Mean Corpuscular Volume 90 FL (80-99) 90 FL (80-99) Mean Corpuscular Hemoglobin 30.7 PG (27.0-31.0) 30.8 PG (27.0-31.0) Mean Corpuscular Hemoglobin Concent 34.0 G/DL (32.0-36.0) 34.1 G/DL (32.0-36.0) Red Cell Distribution Width 12.4 % (11.6-14.8) 12.6 % (11.6-14.8) Platelet Count 161 K/UL (150-450) 178 K/UL (150-450) Mean Platelet Volume 6.4 FL (6.5-10.1) L 5.7 FL (6.5-10.1) L Neutrophils (%) (Auto) 82.5 % (45.0-75.0) H 78.8 % (45.0-75.0) H Lymphocytes (%) (Auto) 10.1 % (20.0-45.0) L 12.9 % (20.0-45.0) L Monocytes (%) (Auto) 5.2 % (1.0-10.0) 5.9 % (1.0-10.0) Eosinophils (%) (Auto) 1.5 % (0.0-3.0) 1.4 % (0.0-3.0) Basophils (%) (Auto) 0.7 % (0.0-2.0) 1.0 % (0.0-2.0) Sodium Level 144 MMOL/L (136-145) 145 MMOL/L (136-145) Potassium Level 4.1 MMOL/L (3.5-5.1) 3.8 MMOL/L (3.5-5.1) Chloride Level 113 MMOL/L (98-107) H 113 MMOL/L (98-107) H Carbon Dioxide Level 19 MMOL/L (21-32) L 18 MMOL/L (21-32) L Anion Gap 12 mmol/L (5-15) 15 mmol/L (5-15) Blood Urea Nitrogen 28 mg/dL (7-18) H 24 mg/dL (7-18) H Creatinine 1.4 MG/DL (0.55-1.30) H 1.5 MG/DL (0.55-1.30) H Estimat Glomerular Filtration Rate 48.2 mL/min (>60) 44.5 mL/min (>60) Glucose Level 148 MG/DL (74-106) H 87 MG/DL (74-106) Calcium Level 9.1 MG/DL (8.5-10.1) 9.5 MG/DL (8.5-10.1) Troponin I Pending Microbiology Date/Time Source Procedure Growth Status 12/04/19 12:30 Nasal Nares Left - Final Complete 12/04/19 12:30 Nasal Nares Left - Final Complete 12/04/19 12:30 Sputum Gram Stain - Final Complete 12/04/19 12:30 Sputum Sputum Culture - Final NORMAL UPPER RESPIRATORY ANG AT 48 ... Complete Objective HEAD AND NECK: Shows mild JVD. LUNGS: Coarse rhonchi. CARDIOVASCULAR: Regular S1 and S2 with no gallop. Sternotomy scar is intact. ABDOMEN: Soft. EXTREMITIES: No pitting edema. Sixto Wiggins MD Dec 07, 2019 07:53
[2019-12-07 08:00] VITALS: BP 129/75
[2019-12-07] MEDS: Docusate 100mg cap ORAL SCH ×3 (09:00→17:16)
[2019-12-07] MEDS: Tamsulosin 0.4mg cap ORAL SCH ×2 (09:00→17:16)
[2019-12-07] MEDS: Aspirin EC 81mg tab ORAL SCH (09:00)
--- NOTE | 2019-12-07 09:01 | Nephrology Progress Note ---
Assessment/Plan Problem List: (1) Renal failure (ARF), acute on chronic (2) Diabetes (3) HTN (hypertension) (4) Anemia Assessment Acute on chronic kidney disease likely diabetes mellitus and hypertension. Patient had echogenic kidneys on previous kidney ultrasound on August 2019 Hypertension Diabetes mellitus History of pleural effusion Ejection fraction of 50% in previous echocardiogram in August 2019 Mild Anemia BPH . Plan Monitor renal parameters Keep the blood sugar and blood pressure and check Continue Flomax. DC IV hydrate Check chest x-ray. Initiate anemia work-up. Continue per consultants. Subjective ROS Limited/Unobtainable: No Constitutional: Reports: malaise, weakness Objective Objective Last 24 Hour Vital Signs Date Time Temp Pulse Resp B/P (MAP) Pulse Ox O2 Delivery O2 Flow Rate FiO2 12/07/19 04:00 98.5 58 16 151/78 (102) 97 12/07/19 00:00 98.3 60 16 140/76 (97) 97 12/06/19 21:00 Room Air 12/06/19 20:00 97.9 56 18 116/64 (81) 96 12/06/19 19:00 89 18 96 Room Air 21 12/06/19 16:00 97.6 82 20 141/76 (97) 100 12/06/19 16:00 91 12/06/19 12:00 96 12/06/19 12:00 96.7 81 19 149/55 (86) 100 12/06/19 09:00 Room Air Intake and Output 12/06/19 12/07/19 19:00 07:00 Intake Total 60 ml 55 ml Output Total 450 ml Balance 60 ml -395 ml Intake Oral 60 ml IV Total 55 ml Output Urine Total 450 ml # Voids 2 Laboratory Tests 12/06/19 10:30: White Blood Count 10.4, Red Blood Count 3.55L, Hemoglobin 10.9L, Hematocrit 32.1L, Mean Corpuscular Volume 90, Mean Corpuscular Hemoglobin 30.7, Mean Corpuscular Hemoglobin Concent 34.0, Red Cell Distribution Width 12.4, Platelet Count 161, Mean Platelet Volume 6.4L, Neutrophils (%) (Auto) 82.5H, Lymphocytes (%) (Auto) 10.1L, Monocytes (%) (Auto) 5.2, Eosinophils (%) (Auto) 1.5, Basophils (%) (Auto) 0.7, Sodium Level 144, Potassium Level 4.1, Chloride Level 113H, Carbon Dioxide Level 19L, Anion Gap 12, Blood Urea Nitrogen 28H, Creatinine 1.4H, Estimat Glomerular Filtration Rate 48.2, Glucose Level 148H, Calcium Level 9.1 12/07/19 06:05: White Blood Count 10.0, Red Blood Count 3.62L, Hemoglobin 11.1L, Hematocrit 32.7L, Mean Corpuscular Volume 90, Mean Corpuscular Hemoglobin 30.8, Mean Corpuscular Hemoglobin Concent 34.1, Red Cell Distribution Width 12.6, Platelet Count 178, Mean Platelet Volume 5.7L, Neutrophils (%) (Auto) 78.8H, Lymphocytes (%) (Auto) 12.9L, Monocytes (%) (Auto) 5.9, Eosinophils (%) (Auto) 1.4, Basophils (%) (Auto) 1.0, Sodium Level 145, Potassium Level 3.8, Chloride Level 113H, Carbon Dioxide Level 18L, Anion Gap 15, Blood Urea Nitrogen 24H, Creatinine 1.5H, Estimat Glomerular Filtration Rate 44.5, Glucose Level 87, Calcium Level 9.5, Troponin I 0.063H Height (Feet): 5 Height (Inches): 6.00 Weight (Pounds): 145 General Appearance: no apparent distress, lethargic Cardiovascular: normal rate Respiratory/Chest: decreased breath sounds Abdomen: soft Bill Redman MD Dec 07, 2019 09:01
[2019-12-07] MEDS: Heparin 5000 units/ml inj SUBQ SCH ×2 (10:08→21:28)
--- NOTE | 2019-12-07 10:30 | NUR ---
NURSE NOTES: Left message for Dr. Hudson via doctor's exchange number concerning elevated troponin level 0.063 ng/ml (although decreased from yesterday, 0.101 ng/ml). As well as to follow up on patient's NPO status recommended by speech therapy and to notify that all oral medications were held due to failed ST evaluation and patient's current inability to safely swallow medications. Charge nurse aware.
--- NOTE | 2019-12-07 11:00 | NUR ---
NURSE NOTES: Spoke with Dr. Hudson in person notifying him of troponin level and to follow up on NPO status as mentioned in previous note. No orders given. MD to consult with GI.
--- NOTE | 2019-12-07 11:15 | GI Initial Consult Note ---
History of Present Illness General Date patient seen: Dec 07, 2019 Time patient seen: 11:09 Reason for Hospitalization: Abnormal Labs Referring physician: LONDON Reason for Consultation: PEG EVALUATION Present Illness HPI Patient is an 84-year-old male sent in by facility for abnormal laboratory testing. Patient was noted to have elevated BUN/creatinine compared to the patient's baseline. Had previous history of renal insufficiency. Apparently the patient had not been eating for several days. Patient had some prior history of diabetes type 2. Had previous hospitalizations at this facility. History is markedly limited by patient's mental status and poor historian. GI consulted for PEG evaluation. ROS limited, patient with history of dementia unable to provide any significant history at this time or review of systems. Patient seen, awake alert no apparent distress currently has NGT feedings. The patient was initially admitted for decreased p.o. intake over the past few days. Speech therapy evaluation noted that the patient had signs and symptoms of significant oral pharyngeal dysphasia with increase oral pharyngeal transit times. Noted that the patient was high risk for silent aspiration given his dementia and current and prior pneumonias. Recommended that the patient was to be kept n.p.o. for nonoral feedings. Noted on the patient's POLST agreed for artificial feeding. Home Meds Reported Medications Escitalopram Oxalate* (LEXAPRO*) 10 Mg Tablet, 10 MG ORAL DAILY for MDD 12/04/19 Nateglinide* (STARLIX*) 60 Mg Tablet, 60 MG ORAL THREE TIMES A DAY for DM 12/04/19 Rosuvastatin Calcium* (CRESTOR*) 10 Mg Tablet, 10 MG ORAL DAILY for HLD 12/04/19 Ondansetron* (ZOFRAN*) 4 Mg Tablet, 4 MG ORAL Q8HR PRN for Nausea & Vomiting 12/04/19 Insulin Glargine (LANTUS) 100 Unit/1 Ml Insuln.pen, 23 UNITS SUBQ DAILY for T2DM 12/04/19 Allopurinol* (ALLOPURINOL*) 100 Mg Tablet, 100 MG ORAL DAILY for GOUT 12/04/19 Folic Acid* (FOLIC ACID*) 1 Mg Tablet, 1 MG ORAL DAILY for IRON DEFICIENCY ANEMIA 12/04/19 Ipratropium Dawson (IPRATROPIUM BROMIDE) 15 Ml Lynn, 2 SPR NS THREE TIMES A DAY for ALLERGIC RHINITIS 12/04/19 Ferrous Sulfate* (FERROUS SULFATE*) 325 Mg Tablet, 325 MG ORAL TWICE A DAY for SUPPLEMENT 12/04/19 Aspirin Ec* (ASPIRIN EC*) 81 Mg Tablet., 81 MG ORAL DAILY for CAD 12/04/19 Fluticasone Propionate (Flovent Hfa) 10.6 Gm Aer.w.adap, 1 PUFFS INH BID for COPD 12/04/19 Cranberry Fruit (CRANBERRY) 450 Mg Tablet, 450 MG PO DAILY for UTI PPX 12/04/19 Melatonin (MELATONIN 5 MG TABLET) 1 Each Tablet, 1 TAB ORAL BEDTIME for CIRCADIAN RHYTHM 12/04/19 Docusate Sodium* (DOCUSATE SODIUM*) 100 Mg Capsule, 100 MG ORAL TWICE A DAY for CONSTIPATION 12/04/19 Acetaminophen* (ACETAMINOPHEN EXTRA STRENGTH*) 500 Mg Tablet, 500 MG ORAL Q6H PRN for Mild Pain/Temp > 100.5 12/04/19 Acetaminophen* (ACETAMINOPHEN EXTRA STRENGTH*) 500 Mg Tablet, 1000 MG ORAL Q6H PRN for Severe Pain (Pain Scale 7-10) 12/04/19 Acetaminophen* (ACETAMINOPHEN 325MG TABLET*) 325 Mg Tablet, 650 MG ORAL Q6H PRN for Moderate Pain (Pain Scale 4-6) 12/04/19 Pantoprazole* (PANTOPRAZOLE*) 40 Mg Tablet., 40 MG ORAL ACBREAKAST for GERD 07/17/19 Med list reviewed/reconciled: Yes Allergies: Coded Allergies: No Known Allergies (Unverified , 12/09/13) Patient History Limited by: medical condition History Provided By: Medical Record PMH Narrative Past Medical History: see triage record Reviewed Nursing Documentation: PMH: Agreed; PSxH: Agreed Nursing Documentation-PMH Hx Cardiac Problems: Yes - heart failure a-fib Hx Hypertension: Yes Hx COPD: Yes Hx Diabetes: Yes Hx Cancer: No Hx Gastrointestinal Problems: No Hx Neurological Problems: Yes Hx Dementia: Yes Hx Weakness: Yes Hx Fatigue: Yes Social History: Denies: smoking, alcohol use, drug use, other Review of Systems All Other Systems: limited Physical Exam Vital Signs Date Time Temp Pulse Resp B/P (MAP) Pulse Ox O2 Delivery O2 Flow Rate FiO2 12/03/19 19:39 98.1 77 18 107/58 (74) 95 Room Air 12/04/19 08:05 21 Sp02 EP Interpretation: reviewed, normal Labs Laboratory Tests Test 12/07/19 06:05 White Blood Count 10.0 K/UL (4.8-10.8) Red Blood Count 3.62 M/UL (4.70-6.10) L Hemoglobin 11.1 G/DL (14.2-18.0) L Hematocrit 32.7 % (42.0-52.0) L Mean Corpuscular Volume 90 FL (80-99) Mean Corpuscular Hemoglobin 30.8 PG (27.0-31.0) Mean Corpuscular Hemoglobin Concent 34.1 G/DL (32.0-36.0) Red Cell Distribution Width 12.6 % (11.6-14.8) Platelet Count 178 K/UL (150-450) Mean Platelet Volume 5.7 FL (6.5-10.1) L Neutrophils (%) (Auto) 78.8 % (45.0-75.0) H Lymphocytes (%) (Auto) 12.9 % (20.0-45.0) L Monocytes (%) (Auto) 5.9 % (1.0-10.0) Eosinophils (%) (Auto) 1.4 % (0.0-3.0) Basophils (%) (Auto) 1.0 % (0.0-2.0) Sodium Level 145 MMOL/L (136-145) Potassium Level 3.8 MMOL/L (3.5-5.1) Chloride Level 113 MMOL/L (98-107) H Carbon Dioxide Level 18 MMOL/L (21-32) L Anion Gap 15 mmol/L (5-15) Blood Urea Nitrogen 24 mg/dL (7-18) H Creatinine 1.5 MG/DL (0.55-1.30) H Estimat Glomerular Filtration Rate 44.5 mL/min (>60) Glucose Level 87 MG/DL (74-106) Calcium Level 9.5 MG/DL (8.5-10.1) Troponin I 0.063 ng/mL (0.000-0.056) General Appearance: well appearing, no apparent distress, alert Head: normocephalic EENT: PERRL/EOMI, normal ENT inspection Neck: supple Respiratory: normal breath sounds, no respiratory distress Cardiovascular: normal rate Gastrointestinal: normal inspection, non tender, soft, normal bowel sounds, non -distended Rectal: deferred Genitourinary: deferred Neurologic: alert, responsive, normal inspection Skin: normal inspection, normal color, no rash, warm/dry, palpation normal, well hydrated Lymphatic: normal inspection, no adenopathy Current Medications Current Medications Medications (Trade) Dose Ordered Sig/Breanna Route PRN Reason Start Time Stop Time Status Last Admin Dose Admin Acetaminophen (Tylenol) 650 mg Q6H PRN ORAL Mild Pain/Temp > 100.5 12/06/19 18:30 01/02/20 18:29 Albuterol/ Ipratropium (Albuterol/ Ipratropium) 3 ml Q6H PRN HHN Shortness of Breath 12/06/19 19:00 12/08/19 18:59 Aspirin (Ecotrin) 81 mg DAILY ORAL 12/07/19 09:00 01/03/20 08:59 Azithromycin 500 mg/Sodium Chloride 275 ml @ 275 mls/hr Q24HRS IV 12/07/19 14:00 12/10/19 14:59 Ceftriaxone Sodium 1 gm/ Sodium Chloride 55 ml @ 110 mls/hr QHS IVPB 12/06/19 21:00 12/12/19 20:59 12/06/19 21:44 Dextrose (Dextrose 50%) 25 ml Q30M PRN IV Hypoglycemia 12/06/19 18:30 01/02/20 18:29 Dextrose (Dextrose 50%) 50 ml Q30M PRN IV Hypoglycemia 12/06/19 18:30 01/02/20 18:29 Diphenhydramine HCl (Benadryl) 25 mg Q6H PRN ORAL Itching/Pruritis 12/06/19 19:00 01/02/20 18:59 Docusate Sodium (Colace) 100 mg TID ORAL 12/07/19 09:00 01/03/20 08:59 Heparin Sodium (Porcine) (Heparin 5000 units/ml) 5,000 units EVERY 12 HOURS SUBQ 12/06/19 21:00 01/03/20 08:59 12/07/19 10:08 Insulin Aspart (NovoLOG) BEFORE MEALS AND HS SUBQ 12/06/19 21:00 01/03/20 06:29 12/06/19 21:48 Insulin Detemir (Levemir) 8 units BEDTIME SUBQ 12/06/19 21:00 4/2/20 20:59 12/06/19 21:48 Mirtazapine (Remeron) 15 mg BEDTIME ORAL 12/06/19 21:00 01/03/20 20:59 Ondansetron HCl (Zofran) 4 mg Q6H PRN IVP Nausea & Vomiting 12/06/19 19:00 01/02/20 18:59 Pantoprazole (Protonix) 40 mg DAILY ORAL 12/07/19 09:00 01/03/20 08:59 Tamsulosin HCl (Flomax) 0.4 mg BID ORAL 12/07/19 09:00 01/03/20 08:59 GI: Plan Problems: (1) Encounter for PEG (percutaneous endoscopic gastrostomy) (2) Severe malnutrition (3) Dehydration (4) Anemia Plan Mr. Dubon is a 84 yo M with DM2, HTN, CHF, A fib, COPD, dementia, presenting with decreased PO intake x several days from SNF, found to have KELLEN. POLST reviewed noted that the patient agreed to long-term artificial feeding. D/ w SW the has no family to consent for procedure, bioethics consulted. Will require cardiac clearance for procedure given ischemic cardiomyopathy, EF 50%. insert NGT, TF per RD Prophylactic PPI IV hydration plus electrolyte correction PRN transfusions to maintain Hbg above 7 Will follow with additional recommendations on daily basis Discussed with Dr. Bran. Thank you for this patient referral, we will follow. The patient was seen and examined at bedside and all new and available data was reviewed in the patients chart. I agree with the above findings, impression and plan. (Patient seen earlier today. Signature stamp does not reflect patient encounter time.). - MD Maryann Cheung,[facility] FRUIT THINNER MACHINE OPERATOR Dec 07, 2019 11:15
--- NOTE | 2019-12-07 11:47 | General Progress Note ---
Assessment/Plan Problem List: (1) KELLEN (acute kidney injury) ICD Codes: N17.9 - Acute kidney failure, unspecified SNOMED: 0206971, 00152723 (2) Depression ICD Codes: F32.9 - Depression SNOMED: 74946626 (3) Diabetes ICD Codes: E11.9 - Diabetes SNOMED: 38913543 (4) HTN (hypertension) ICD Codes: I10 - HTN (hypertension) SNOMED: 55614605 (5) Atrial fibrillation ICD Codes: I48.91 - Unspecified atrial fibrillation SNOMED: 98561243 (6) History of COPD ICD Codes: Z87.09 - Personal history of other diseases of the respiratory system SNOMED: 178606785 Status: stable Assessment/Plan: Mr. Dubon is a 84 year old male with hx of HTN, DM2, presenting from SNF with decreased PO intake, and KELLEN. #Decreased PO intake #Failure to thrive #KELLEN - improving -d/c IVF -Nephrology consult appreciated. -Psychiatry consult appreciated. Mirtazipine started. #Dysphagia -seen by speech -> recommends artificial feeding. -NGT couldn't be advanced per nursing (12/05). -GI consulted. appreciate assistance. #Cough #Leukocytosis #Left lung PNA -Continue empiric abx (Ceftriaxone, azithromycin 12/03- ) -CXR + for possible consolidation left lung -f/u sputum Cx. -flu panel neg. -Pulmonology consult appreciated. #Chronic CH #Elevated troponin BNP elevated. trop leak. likely from renal failure. -cardiology consult appreciated. -coreg previously held for bradycardia. #DM2 -Continue insulin sliding scale + long acting. -POCT glucose. #BPH -Continue flomax. #GERD -continue PPI Time spent on encounter: 36 mins, >50% on counseling, coordination of care. Time of note does not reflect time of encounter. - Subjective Date patient seen: Dec 07, 2019 Constitutional: Denies: no symptoms, chills, diaphoresis, fever, malaise, weakness, other HEENT: Denies: no symptoms, eye pain, blurred vision, tearing, double vision, ear pain, ear discharge, nose pain, nose congestion, throat pain, throat swelling, mouth pain, mouth swelling, other Cardiovascular: Denies: no symptoms, chest pain, edema, irregular heart rate, lightheadedness, palpitations, syncope, other Respiratory: Denies: no symptoms, cough, orthopnea, shortness of breath, SOB with excertion, SOB at rest, sputum, stridor, wheezing, other Gastrointestinal/Abdominal: Denies: no symptoms, abdomen distended, abdominal pain, black stools, tarry stools, blood in stool, constipated, diarrhea, difficulty swallowing, nausea, poor appetite, poor fluid intake, rectal bleeding , vomiting, other Genitourinary: Denies: no symptoms, burning, discharge, frequency, flank pain, hematuria, incontinence, pain, urgency, other Neurologic/Psychiatric: Denies: no symptoms, anxiety, depressed, emotional problems, headache, numbness, paresthesia, pre-existing deficit, seizure, tingling, tremors, weakness, other Endocrine: Denies: no symptoms, excessive sweating, flushing, intolerance to cold, intolerance to heat, increased hunger, increased thirst, increased urine, unexplained weight gain, unexplained weight loss, other Hematologic/Lymphatic: Denies: no symptoms, anemia, easy bleeding, easy bruising, other Allergies: Coded Allergies: No Known Allergies (Unverified , 12/09/13) Subjective appears very sleepy, minimally responsive, withdrawn. Objective Last 24 Hour Vital Signs Date Time Temp Pulse Resp B/P (MAP) Pulse Ox O2 Delivery O2 Flow Rate FiO2 12/07/19 09:24 60 18 96 Room Air 21 12/07/19 04:00 98.5 58 16 151/78 (102) 97 12/07/19 00:00 98.3 60 16 140/76 (97) 97 12/06/19 21:00 Room Air 12/06/19 20:00 97.9 56 18 116/64 (81) 96 12/06/19 19:00 89 18 96 Room Air 21 12/06/19 16:00 97.6 82 20 141/76 (97) 100 12/06/19 16:00 91 12/06/19 12:00 96 12/06/19 12:00 96.7 81 19 149/55 (86) 100 Intake and Output 12/06/19 12/07/19 19:00 07:00 Intake Total 60 ml 55 ml Output Total 450 ml Balance 60 ml -395 ml Intake Oral 60 ml IV Total 55 ml Output Urine Total 450 ml # Voids 2 Laboratory Tests 12/07/19 06:05: White Blood Count 10.0, Red Blood Count 3.62L, Hemoglobin 11.1L, Hematocrit 32.7L, Mean Corpuscular Volume 90, Mean Corpuscular Hemoglobin 30.8, Mean Corpuscular Hemoglobin Concent 34.1, Red Cell Distribution Width 12.6, Platelet Count 178, Mean Platelet Volume 5.7L, Neutrophils (%) (Auto) 78.8H, Lymphocytes (%) (Auto) 12.9L, Monocytes (%) (Auto) 5.9, Eosinophils (%) (Auto) 1.4, Basophils (%) (Auto) 1.0, Sodium Level 145, Potassium Level 3.8, Chloride Level 113H, Carbon Dioxide Level 18L, Anion Gap 15, Blood Urea Nitrogen 24H, Creatinine 1.5H, Estimat Glomerular Filtration Rate 44.5, Glucose Level 87, Calcium Level 9.5, Troponin I 0.063H Height (Feet): 5 Height (Inches): 6.00 Weight (Pounds): 145 General Appearance: no apparent distress, lethargic Neck: supple Cardiovascular: normal rate, regular rhythm Respiratory/Chest: lungs clear, normal breath sounds Abdomen: non tender, soft Ismael Hudson M.D. Dec 07, 2019 11:47
[2019-12-07 12:00] VITALS: BP 114/71
--- NOTE | 2019-12-07 12:56 | NUR ---
NURSE NOTES: Attempted to insert NG tube at bedside with JAVA INTEGRATION DEVELOPER Katrin Wolf. Unsuccessful after multiple attempts. Patient than became agitated and refused any further attempts at insertion. JAVA INTEGRATION DEVELOPER then recommended PEG placement. Notified Dr. Tristan MARTIN. Dr. Hudson agreed to proceed with PEG placement. Charge nurse aware. Will follow up with GI.
--- NOTE | 2019-12-07 13:28 | NUR ---
*-* INSURANCE *-* ALL CLINICALS HAVE BEEN FAXED TO: TANISHA Odonnell # [phone]
--- NOTE | 2019-12-07 14:07 | Pulmonology Progress Note ---
Assessment/Plan Assessment/Plan IMPRESSION: 1. Left lung field pneumonia. 2. Hypertension. 3. Dementia. 4. prison resident. 5. Diabetes mellitus. DISCUSSION: Continue antibiotics. No influenza Continue intravenous fluids Respiratory hygiene with breathing treatment Diabetes control DVT prophylaxis. I will follow. Subjective Interval Events: none new reported Constitutional: Reports: no symptoms HEENT: Repors: no symptoms Respiratory: Reports: no symptoms Cardiovascular: Reports: no symptoms Gastrointestinal/Abdominal: Reports: no symptoms Allergies: Coded Allergies: No Known Allergies (Unverified , 12/09/13) Objective Last 24 Hour Vital Signs Date Time Temp Pulse Resp B/P (MAP) Pulse Ox O2 Delivery O2 Flow Rate FiO2 12/07/19 09:24 60 18 96 Room Air 21 12/07/19 08:00 97.6 90 18 129/75 (93) 99 12/07/19 04:00 98.5 58 16 151/78 (102) 97 12/07/19 00:00 98.3 60 16 140/76 (97) 97 12/06/19 21:00 Room Air 12/06/19 20:00 97.9 56 18 116/64 (81) 96 12/06/19 19:00 89 18 96 Room Air 21 12/06/19 16:00 97.6 82 20 141/76 (97) 100 12/06/19 16:00 91 Intake and Output 12/06/19 12/07/19 19:00 07:00 Intake Total 60 ml 55 ml Output Total 450 ml Balance 60 ml -395 ml Intake Oral 60 ml IV Total 55 ml Output Urine Total 450 ml # Voids 2 General Appearance: no acute distress HEENT: normocephalic Respiratory/Chest: chest wall non-tender, lungs clear Cardiovascular: normal peripheral pulses, normal rate Abdomen: normal bowel sounds Laboratory Tests 12/07/19 06:05: White Blood Count 10.0, Red Blood Count 3.62L, Hemoglobin 11.1L, Hematocrit 32.7L, Mean Corpuscular Volume 90, Mean Corpuscular Hemoglobin 30.8, Mean Corpuscular Hemoglobin Concent 34.1, Red Cell Distribution Width 12.6, Platelet Count 178, Mean Platelet Volume 5.7L, Neutrophils (%) (Auto) 78.8H, Lymphocytes (%) (Auto) 12.9L, Monocytes (%) (Auto) 5.9, Eosinophils (%) (Auto) 1.4, Basophils (%) (Auto) 1.0, Sodium Level 145, Potassium Level 3.8, Chloride Level 113H, Carbon Dioxide Level 18L, Anion Gap 15, Blood Urea Nitrogen 24H, Creatinine 1.5H, Estimat Glomerular Filtration Rate 44.5, Glucose Level 87, Calcium Level 9.5, Troponin I 0.063H Current Medications Medications (Trade) Dose Ordered Sig/Breanna Route PRN Reason Start Time Stop Time Status Last Admin Dose Admin Acetaminophen (Tylenol) 650 mg Q6H PRN ORAL Mild Pain/Temp > 100.5 12/06/19 18:30 01/02/20 18:29 Albuterol/ Ipratropium (Albuterol/ Ipratropium) 3 ml Q6H PRN HHN Shortness of Breath 12/06/19 19:00 12/08/19 18:59 Aspirin (Ecotrin) 81 mg DAILY ORAL 12/07/19 09:00 01/03/20 08:59 Azithromycin 500 mg/Sodium Chloride 275 ml @ 275 mls/hr Q24HRS IV 12/07/19 14:00 12/10/19 14:59 Ceftriaxone Sodium 1 gm/ Sodium Chloride 55 ml @ 110 mls/hr QHS IVPB 12/06/19 21:00 12/12/19 20:59 12/06/19 21:44 Dextrose (Dextrose 50%) 25 ml Q30M PRN IV Hypoglycemia 12/06/19 18:30 01/02/20 18:29 Dextrose (Dextrose 50%) 50 ml Q30M PRN IV Hypoglycemia 12/06/19 18:30 01/02/20 18:29 Diphenhydramine HCl (Benadryl) 25 mg Q6H PRN ORAL Itching/Pruritis 12/06/19 19:00 01/02/20 18:59 Docusate Sodium (Colace) 100 mg TID ORAL 12/07/19 09:00 01/03/20 08:59 Heparin Sodium (Porcine) (Heparin 5000 units/ml) 5,000 units EVERY 12 HOURS SUBQ 12/06/19 21:00 01/03/20 08:59 12/07/19 10:08 Insulin Aspart (NovoLOG) BEFORE MEALS AND HS SUBQ 12/06/19 21:00 01/03/20 06:29 12/06/19 21:48 Insulin Detemir (Levemir) 8 units BEDTIME SUBQ 12/06/19 21:00 01/03/20 20:59 12/06/19 21:48 Mirtazapine (Remeron) 15 mg BEDTIME ORAL 12/06/19 21:00 01/03/20 20:59 Ondansetron HCl (Zofran) 4 mg Q6H PRN IVP Nausea & Vomiting 12/06/19 19:00 01/02/20 18:59 Pantoprazole (Protonix) 40 mg DAILY ORAL 12/07/19 09:00 01/03/20 08:59 Tamsulosin HCl (Flomax) 0.4 mg BID ORAL 12/07/19 09:00 01/03/20 08:59 Kenyon Garcia MD Dec 07, 2019 14:07
[2019-12-07] MEDS: Azithromycin 500 MG in NS 275 ML IV SCH (14:53)
[2019-12-07 16:00] VITALS: BP 121/70
--- NOTE | 2019-12-07 16:08 | NUR ---
CASE MANAGEMENT:REVIEW SI;AC KIDNEY INJURY. A-FIB. FTT. 98.5 58 18 151/78 96% ON RA CL 113 CO2 18 BUN 24 CR 1.5 TROP 0.063 IS;AZITHROMYCIN IV Q24 HRS ASA PO QD PROTONIX PO QD ROCEPHIN IV QHS HEPARIN SUBQ Q12 HRS DUO NEB HHN Q6 HRS MED SURG STATUS DCP; FROM [facility]
--- NOTE | 2019-12-07 16:35 | NUR ---
NETWORK OPERATIONS TECHNICIAN NOTE SW received a consult for bioethics meeting. Per chart review, pt presents as A&O 2x and has no family members. FITO left a vm to Angela Contreras [phone], social worker palliative care from [facility] for call back. This case will be discussed w/ SHAWN Choe. Signed: 12/07/19 at 1636 by JOEY PAYTON <Co-Signature Required>
--- NOTE | 2019-12-07 17:20 | NUR ---
NURSE NOTES: Patient's BS dropped to 68. Gave 25ml of D50%. Notified Dr. Hudson. No response yet. Charge nurse aware. Completed necessary documentation in interventions.
--- NOTE | 2019-12-07 19:18 | NUR ---
HAND-OFF: Report given to DENAE Atwood. Rounds done.
[2019-12-07 20:00] VITALS: BP 155/70
[2019-12-07] MEDS: Levemir Flexpen SUBQ SCH (20:34)
[2019-12-07] MEDS: cefTRIAXone 1 GM in NS 55 ML IVPB SCH (21:21)
--- NOTE | 2019-12-07 22:34 | NUR ---
NURSE NOTES: Pt is in bed, lethargic, abusable to touch and voice. No acute distress noted. Vitas stable. Pt's blood sugar is 87, pt is currently NPO, awaiting PEG placement.According to last shift RN, multiple attempts were made to insert a NG-tube to no avail. Pt had a hypoglycemic event during last shift ( BS 68), Dextrose IV was given to bring the blood sugar to 123. Pt's blood sugar will be monitored periodically during this shift. Fall precaution in place, bed alarm on. Bed chris dlow in position,side rails up and call light within reach. Pt will be monitored.
[2019-12-08] VITALS: BP 136/72
--- NOTE | 2019-12-08 01:30 | NUR ---
NURSE NOTES: Pt is more awake and verbal. Pt is asking for water, however, pt is NPO. Pt was given a breathing treatment by RT.
--- NOTE | 2019-12-08 02:15 | Progress Note ---
DATE: 12/07/2019 SUBJECTIVE: The patient is the same. Mentation is unchanged since previous encounter, dehydrated, poor appetite. MENTAL STATUS EXAMINATION: The patient is alert and oriented times self. Mood is depressed. Affect is constricted, congruent with mood. Thought process is concrete. Thought content, no suicidal or homicidal ideation. ASSESSMENT: Stable. PLAN: 1. Continue current medications. 2. Provide the patient with reality orientation and supportive therapy. 3. Discussed with nurse. Ana Chao M.D. DR: BUFFY JOB#: [id number] CC: PRECIOUS
[2019-12-08 04:00] VITALS: BP 142/65
--- NOTE | 2019-12-08 04:30 | NUR ---
HAND-OFF: Report given to DENAE Caro. Informed to check blood sugar because patient is NPO and has hypoglycemic tendencies. Also to monotor patient for High Fall Risk status. .
[2019-12-08] MEDS: NovoLOG Insulin Flexpen SUBQ SCH ×4 (06:04→21:58)
--- NOTE | 2019-12-08 07:10 | NUR ---
NURSE NOTES:handoff received from DENAE Caro. Patient received sleeping in bed, no acute signs of distress noted, breathing is equal and unlabored. Patient has L hand iv site clean dry and intact, condom cath is patent and draining, patient is on room air, bed in the low and locked position with call light within reach, will continue to monitor patient.
[2019-12-08 07:31] LABS: BASOPHILS % (AUTO) 0.8 % (0.0-2.0); EOSINOPHILS % (AUTO) 1.6 % (0.0-3.0); HEMATOCRIT 32.6 % (42.0-52.0); HEMOGLOBIN 10.9 G/DL (14.2-18.0); LYMPHOCYTES % (AUTO) 13.1 % (20.0-45.0); MEAN CORPUSCULAR VOLUME 90 FL (80-99); MONOCYTES % (AUTO) 5.3 % (1.0-10.0); NEUTROPHILS % (AUTO) 79.1 % (45.0-75.0); PLATELET COUNT 185 K/UL (150-450); RED BLOOD COUNT 3.61 M/UL (4.70-6.10); RED CELL DISTRIBUTION WIDTH 12.6 % (11.6-14.8); WHITE BLOOD COUNT 8.4 K/UL (4.8-10.8)
--- NOTE | 2019-12-08 07:39 | NUR ---
HAND-OFF: Report given to Jonnie PHILIPPE.
[2019-12-08 08:00] VITALS: BP 146/59
[2019-12-08 08:00] LABS: PHOSPHORUS 3.2 MG/DL (2.5-4.9)
[2019-12-08 08:01] LABS: ANION GAP 16 mmol/L (5-15); BLOOD UREA NITROGEN 25 mg/dL (7-18); CALCIUM 9.4 MG/DL (8.5-10.1); CARBON DIOXIDE 18 MMOL/L (21-32); CHLORIDE 113 MMOL/L (98-107); CREATININE 1.5 MG/DL (0.55-1.30); POTASSIUM 3.7 MMOL/L (3.5-5.1); SODIUM 147 MMOL/L (136-145)
--- NOTE | 2019-12-08 08:36 | General Progress Note ---
Assessment/Plan Status: stable Assessment/Plan: Problems: (1) Encounter for PEG (percutaneous endoscopic gastrostomy) (2) Severe malnutrition (3) Dehydration (4) Anemia failed swallow eval start IVF Bioethic consult for consent for PEG repeat swallow eval on Tuesday Subjective ROS Limited/Unobtainable: Yes Allergies: Coded Allergies: No Known Allergies (Unverified , 12/09/13) Objective Last 24 Hour Vital Signs Date Time Temp Pulse Resp B/P (MAP) Pulse Ox O2 Delivery O2 Flow Rate FiO2 12/08/19 07:11 73 20 96 Room Air 21 12/08/19 04:00 97.2 100 20 142/65 (90) 95 12/08/19 01:47 89 18 98 Room Air 21 86 18 96 12/08/19 00:00 97.8 83 20 136/72 (93) 97 12/07/19 21:00 Room Air 12/07/19 20:00 97.4 87 20 155/70 (98) 100 12/07/19 19:33 89 18 94 Room Air 21 12/07/19 16:00 97.7 92 18 121/70 (87) 100 12/07/19 12:00 98.0 97 18 114/71 (85) 96 12/07/19 09:24 60 18 96 Room Air 21 12/07/19 09:00 Room Air Intake and Output 12/07/19 12/08/19 19:00 07:00 Intake Total 55 ml Output Total 600 ml 500 ml Balance -600 ml -445 ml IV Total 55 ml Output Urine Total 600 ml 500 ml # Voids 1 Laboratory Tests 12/08/19 06:35: White Blood Count 8.4, Red Blood Count 3.61L, Hemoglobin 10.9L, Hematocrit 32.6L , Mean Corpuscular Volume 90, Mean Corpuscular Hemoglobin 30.3, Mean Corpuscular Hemoglobin Concent 33.6, Red Cell Distribution Width 12.6, Platelet Count 185, Mean Platelet Volume 5.4L, Neutrophils (%) (Auto) 79.1H, Lymphocytes (%) (Auto) 13.1L, Monocytes (%) (Auto) 5.3, Eosinophils (%) (Auto) 1.6, Basophils (%) (Auto) 0.8, Sodium Level 147H, Potassium Level 3.7, Chloride Level 113H, Carbon Dioxide Level 18L, Anion Gap 16H, Blood Urea Nitrogen 25H, Creatinine 1.5H, Estimat Glomerular Filtration Rate 44.5, Glucose Level 98, Calcium Level 9.4, Phosphorus Level 3.2, Magnesium Level 1.7L Height (Feet): 5 Height (Inches): 6.00 Weight (Pounds): 145 General Appearance: alert EENT: normal ENT inspection Neck: supple Cardiovascular: normal rate Respiratory/Chest: decreased breath sounds Abdomen: normal bowel sounds, non tender, soft Extremities: non-tender Lauro Bran MD Dec 08, 2019 08:36
[2019-12-08] MEDS: Docusate 100mg cap ORAL SCH ×3 (08:43→17:20)
[2019-12-08] MEDS: Aspirin EC 81mg tab ORAL SCH (08:43)
[2019-12-08] MEDS: Tamsulosin 0.4mg cap ORAL SCH ×2 (08:44→17:21)
[2019-12-08] MEDS: D5 1/2NS 1,000 ML IV SCH ×2 (08:53→21:57)
[2019-12-08] MEDS: Heparin 5000 units/ml inj SUBQ SCH ×2 (08:54→21:58)
[2019-12-08 12:00] VITALS: BP 168/57
--- NOTE | 2019-12-08 12:26 | General Progress Note ---
Assessment/Plan Status: stable Assessment/Plan: Mr. Dubon is a 84 year old male with hx of HTN, DM2, presenting from SNF with decreased PO intake, and KELLEN. #Decreased PO intake #Failure to thrive #Dysphagia -s/p IVF -Seen by speech -> recommends artificial feeding. -NGT couldn't be advanced per nursing (12/05). -pt failed video swallow -GI consulted: plan to repeat video swallow Tuesday, Bioethic consult for PEG -Psychiatry following: Mirtazipine #Acute on chronic kidney disease #KELLEN - stable -likely diabetes mellitus and hypertension. -s/p IVF -Cr 1.5, likely new baseline -Nephrology following, consult appreciated #Cough #Leukocytosis - resolved #Left lung PNA -Continue empiric abx (Ceftriaxone, azithromycin 12/03- ) -CXR + for possible consolidation left lung -Sputum Cx w/normal fabiola -flu panel neg. -Pulmonology consult appreciated. #Chronic CH #ICM EF 50%, h/o CABG #Elevated troponin #bradycardia #Afib -BNP elevated. trop leak. likely from renal failure. -home coreg held 2/2 bradycardia. -cont. lisinopril -ASA, statin -off OAC -cardiology following, consult appreciated #hypoMagnesemia -replace, cont. to monitor #DM2 -Continue insulin sliding scale + long acting. -POCT glucose. #BPH -Continue flomax. #GERD -continue PPI Time spent on encounter: 36 mins, >50% on counseling, coordination of care. Time of note does not reflect time of encounter. Subjective Constitutional: Denies: no symptoms, chills, diaphoresis, fever, malaise, weakness, other HEENT: Denies: no symptoms, eye pain, blurred vision, tearing, double vision, ear pain, ear discharge, nose pain, nose congestion, throat pain, throat swelling, mouth pain, mouth swelling, other Cardiovascular: Denies: no symptoms, chest pain, edema, irregular heart rate, lightheadedness, palpitations, syncope, other Respiratory: Denies: no symptoms, cough, orthopnea, shortness of breath, SOB with excertion, SOB at rest, sputum, stridor, wheezing, other Gastrointestinal/Abdominal: Denies: no symptoms, abdomen distended, abdominal pain, black stools, tarry stools, blood in stool, constipated, diarrhea, difficulty swallowing, nausea, poor appetite, poor fluid intake, rectal bleeding , vomiting, other Genitourinary: Denies: no symptoms, burning, discharge, frequency, flank pain, hematuria, incontinence, pain, urgency, other Allergies: Coded Allergies: No Known Allergies (Unverified , 12/09/13) Subjective Pt somnolent but arousable on exam, denies any pain, SOB, CP or abd pain at this time. Objective Last 24 Hour Vital Signs Date Time Temp Pulse Resp B/P (MAP) Pulse Ox O2 Delivery O2 Flow Rate FiO2 12/08/19 12:00 98.0 50 18 168/57 (94) 98 12/08/19 09:00 Room Air 12/08/19 08:00 97.9 70 18 146/59 (88) 97 12/08/19 07:11 73 20 96 Room Air 21 12/08/19 04:00 97.2 100 20 142/65 (90) 95 12/08/19 01:47 89 18 98 Room Air 21 86 18 96 12/08/19 00:00 97.8 83 20 136/72 (93) 97 12/07/19 21:00 Room Air 12/07/19 20:00 97.4 87 20 155/70 (98) 100 12/07/19 19:33 89 18 94 Room Air 21 12/07/19 16:00 97.7 92 18 121/70 (87) 100 Intake and Output 12/07/19 12/08/19 19:00 07:00 Intake Total 55 ml Output Total 600 ml 500 ml Balance -600 ml -445 ml IV Total 55 ml Output Urine Total 600 ml 500 ml # Voids 1 Laboratory Tests 12/08/19 06:35: White Blood Count 8.4, Red Blood Count 3.61L, Hemoglobin 10.9L, Hematocrit 32.6L , Mean Corpuscular Volume 90, Mean Corpuscular Hemoglobin 30.3, Mean Corpuscular Hemoglobin Concent 33.6, Red Cell Distribution Width 12.6, Platelet Count 185, Mean Platelet Volume 5.4L, Neutrophils (%) (Auto) 79.1H, Lymphocytes (%) (Auto) 13.1L, Monocytes (%) (Auto) 5.3, Eosinophils (%) (Auto) 1.6, Basophils (%) (Auto) 0.8, Sodium Level 147H, Potassium Level 3.7, Chloride Level 113H, Carbon Dioxide Level 18L, Anion Gap 16H, Blood Urea Nitrogen 25H, Creatinine 1.5H, Estimat Glomerular Filtration Rate 44.5, Glucose Level 98, Calcium Level 9.4, Phosphorus Level 3.2, Magnesium Level 1.7L Height (Feet): 5 Height (Inches): 6.00 Weight (Pounds): 145 Objective General Appearance: no apparent distress, somnolent but easily arousable Neck: supple Cardiovascular: normal rate, regular rhythm Respiratory/Chest: lungs clear, normal breath sounds Abdomen: non tender, soft Ext: no edema Fady Liriano M.D. Dec 08, 2019 12:26
--- NOTE | 2019-12-08 13:03 | Nephrology Progress Note ---
Assessment/Plan Problem List: (1) Renal failure (ARF), acute on chronic (2) Diabetes (3) HTN (hypertension) (4) Anemia Assessment Acute on chronic kidney disease likely diabetes mellitus and hypertension. Patient had echogenic kidneys on previous kidney ultrasound on August 2019 Hypertension Diabetes mellitus History of pleural effusion Ejection fraction of 50% in previous echocardiogram in August 2019 Mild Anemia BPH . Plan Serum creatinine is stable Monitor renal parameters Keep the blood sugar and blood pressure and check Continue Flomax. Slow IV hydrate Check chest x-ray. Initiate anemia work-up. Continue per consultants. Subjective ROS Limited/Unobtainable: No Constitutional: Reports: malaise Objective Objective Last 24 Hour Vital Signs Date Time Temp Pulse Resp B/P (MAP) Pulse Ox O2 Delivery O2 Flow Rate FiO2 12/08/19 12:00 98.0 50 18 168/57 (94) 98 12/08/19 09:00 Room Air 12/08/19 08:00 97.9 70 18 146/59 (88) 97 12/08/19 07:11 73 20 96 Room Air 21 12/08/19 04:00 97.2 100 20 142/65 (90) 95 12/08/19 01:47 89 18 98 Room Air 21 86 18 96 12/08/19 00:00 97.8 83 20 136/72 (93) 97 12/07/19 21:00 Room Air 12/07/19 20:00 97.4 87 20 155/70 (98) 100 12/07/19 19:33 89 18 94 Room Air 21 12/07/19 16:00 97.7 92 18 121/70 (87) 100 Intake and Output 12/07/19 12/08/19 19:00 07:00 Intake Total 55 ml Output Total 600 ml 500 ml Balance -600 ml -445 ml IV Total 55 ml Output Urine Total 600 ml 500 ml # Voids 1 Laboratory Tests 12/08/19 06:35: White Blood Count 8.4, Red Blood Count 3.61L, Hemoglobin 10.9L, Hematocrit 32.6L , Mean Corpuscular Volume 90, Mean Corpuscular Hemoglobin 30.3, Mean Corpuscular Hemoglobin Concent 33.6, Red Cell Distribution Width 12.6, Platelet Count 185, Mean Platelet Volume 5.4L, Neutrophils (%) (Auto) 79.1H, Lymphocytes (%) (Auto) 13.1L, Monocytes (%) (Auto) 5.3, Eosinophils (%) (Auto) 1.6, Basophils (%) (Auto) 0.8, Sodium Level 147H, Potassium Level 3.7, Chloride Level 113H, Carbon Dioxide Level 18L, Anion Gap 16H, Blood Urea Nitrogen 25H, Creatinine 1.5H, Estimat Glomerular Filtration Rate 44.5, Glucose Level 98, Calcium Level 9.4, Phosphorus Level 3.2, Magnesium Level 1.7L Height (Feet): 5 Height (Inches): 6.00 Weight (Pounds): 145 General Appearance: lethargic Cardiovascular: normal rate Respiratory/Chest: decreased breath sounds Abdomen: soft Bill Redman MD Dec 08, 2019 13:03
[2019-12-08 13:22] LABS: ALANINE AMINOTRANSFERASE 28 U/L (12-78); ALBUMIN 2.3 G/DL (3.4-5.0); ALKALINE PHOSPHATASE 89 U/L (46-116); ASPARTATE AMINO TRANSFERASE 23 U/L (15-37); BILIRUBIN,DIRECT < 0.1 MG/DL (0.0-0.3); BILIRUBIN,TOTAL 0.3 MG/DL (0.2-1.0)
--- NOTE | 2019-12-08 14:26 | Cardiac Electrophysiology PN ---
Assessment/Plan Assessment/Plan 1. Ischemic cardiomyopathy, EF 50% in 08/2019 and high BNP. Off Coreg as was migdalia down to 30s in prior admission and now in 50s. On lisinopril 2. 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 Off Coreg. No CP. 3. Paroxysmal atrial fibrillation, remained in sinus rhythm with first-degree AV block when on tele. Off anticoagulation and was off even at the [facility] 4. Hyperlipidemia on Lipitor. 5. Urinary tract infection. 6. Hospital-acquired pneumonia. DARON RN and Dr. Kingston Subjective Subjective No events on NMB.No CP. Objective Last 24 Hour Vital Signs Date Time Temp Pulse Resp B/P (MAP) Pulse Ox O2 Delivery O2 Flow Rate FiO2 12/08/19 12:00 98.0 50 18 168/57 (94) 98 12/08/19 09:00 Room Air 12/08/19 08:00 97.9 70 18 146/59 (88) 97 12/08/19 07:11 73 20 96 Room Air 21 12/08/19 04:00 97.2 100 20 142/65 (90) 95 12/08/19 01:47 89 18 98 Room Air 21 86 18 96 12/08/19 00:00 97.8 83 20 136/72 (93) 97 12/07/19 21:00 Room Air 12/07/19 20:00 97.4 87 20 155/70 (98) 100 12/07/19 19:33 89 18 94 Room Air 21 12/07/19 16:00 97.7 92 18 121/70 (87) 100 Intake and Output 12/07/19 12/08/19 19:00 07:00 Intake Total 55 ml Output Total 600 ml 500 ml Balance -600 ml -445 ml IV Total 55 ml Output Urine Total 600 ml 500 ml # Voids 1 Laboratory Tests Test 12/08/19 06:35 White Blood Count 8.4 K/UL (4.8-10.8) Red Blood Count 3.61 M/UL (4.70-6.10) L Hemoglobin 10.9 G/DL (14.2-18.0) L Hematocrit 32.6 % (42.0-52.0) L Mean Corpuscular Volume 90 FL (80-99) Mean Corpuscular Hemoglobin 30.3 PG (27.0-31.0) Mean Corpuscular Hemoglobin Concent 33.6 G/DL (32.0-36.0) Red Cell Distribution Width 12.6 % (11.6-14.8) Platelet Count 185 K/UL (150-450) Mean Platelet Volume 5.4 FL (6.5-10.1) L Neutrophils (%) (Auto) 79.1 % (45.0-75.0) H Lymphocytes (%) (Auto) 13.1 % (20.0-45.0) L Monocytes (%) (Auto) 5.3 % (1.0-10.0) Eosinophils (%) (Auto) 1.6 % (0.0-3.0) Basophils (%) (Auto) 0.8 % (0.0-2.0) Sodium Level 147 MMOL/L (136-145) H Potassium Level 3.7 MMOL/L (3.5-5.1) Chloride Level 113 MMOL/L (98-107) H Carbon Dioxide Level 18 MMOL/L (21-32) L Anion Gap 16 mmol/L (5-15) H Blood Urea Nitrogen 25 mg/dL (7-18) H Creatinine 1.5 MG/DL (0.55-1.30) H Estimat Glomerular Filtration Rate 44.5 mL/min (>60) Glucose Level 98 MG/DL (74-106) Calcium Level 9.4 MG/DL (8.5-10.1) Phosphorus Level 3.2 MG/DL (2.5-4.9) Magnesium Level 1.7 MG/DL (1.8-2.4) L Total Bilirubin 0.3 MG/DL (0.2-1.0) Direct Bilirubin < 0.1 MG/DL (0.0-0.3) Aspartate Amino Transf (AST/SGOT) 23 U/L (15-37) Alanine Aminotransferase (ALT/SGPT) 28 U/L (12-78) Alkaline Phosphatase 89 U/L (46-116) Total Protein 5.8 G/DL (6.4-8.2) L Albumin 2.3 G/DL (3.4-5.0) L Objective HEAD AND NECK: Shows mild JVD. LUNGS: Coarse rhonchi. CARDIOVASCULAR: Regular S1 and S2 with no gallop. Sternotomy scar is intact. ABDOMEN: Soft. EXTREMITIES: No pitting edema. Sxito Wiggins MD Dec 08, 2019 14:25
[2019-12-08] MEDS: Azithromycin 500 MG in NS 275 ML IV SCH (14:37)
[2019-12-08 16:00] VITALS: BP 152/75
--- NOTE | 2019-12-08 16:29 | NUR ---
NURSE NOTES: patient prescribed 1gram/bag of magnesium sulphate per Dr Liriano. Dose administered. Dr redman also ordered magnesium for the patient for 2grams/2bags of magnesium, however patient already received 1 gram earlier. Non-administered 1 bag as the patient has already received 2 bags. Addendum: 12/08/19 at 1636 by Jonnie Whalen RN NURSE NOTES: Called and left a message for Dr Redman to clarify if he wants a total of 2 bags of magnesium or 3 bags for the patient, as not sure if he is aware that patient already received one bag this morning.
--- NOTE | 2019-12-08 16:45 | NUR ---
NURSE NOTES: Spoke to Dr Redman who confirmed he wanted a total of 2 bags to be administered to the patient. Patient has received a total of 2 bags, non-administered the 3rd bag.
--- NOTE | 2019-12-08 18:29 | Pulmonology Progress Note ---
Assessment/Plan Assessment/Plan IMPRESSION: 1. Left lung field pneumonia. 2. Hypertension. 3. Dementia. 4. long term resident. 5. Diabetes mellitus. DISCUSSION: Continue antibiotics. No influenza Continue intravenous fluids Respiratory hygiene with breathing treatment Diabetes control DVT prophylaxis. I will follow. Subjective Interval Events: None new Constitutional: Reports: no symptoms HEENT: Repors: no symptoms Respiratory: Reports: no symptoms Cardiovascular: Reports: no symptoms Gastrointestinal/Abdominal: Reports: no symptoms Genitourinary: Reports: no symptoms Allergies: Coded Allergies: No Known Allergies (Unverified , 12/09/13) Objective Last 24 Hour Vital Signs Date Time Temp Pulse Resp B/P (MAP) Pulse Ox O2 Delivery O2 Flow Rate FiO2 12/08/19 16:00 98.2 93 18 152/75 (100) 99 12/08/19 12:00 98.0 50 18 168/57 (94) 98 12/08/19 09:00 Room Air 12/08/19 08:00 97.9 70 18 146/59 (88) 97 12/08/19 07:11 73 20 96 Room Air 21 12/08/19 04:00 97.2 100 20 142/65 (90) 95 12/08/19 01:47 89 18 98 Room Air 21 86 18 96 12/08/19 00:00 97.8 83 20 136/72 (93) 97 12/07/19 21:00 Room Air 12/07/19 20:00 97.4 87 20 155/70 (98) 100 12/07/19 19:33 89 18 94 Room Air 21 Intake and Output 12/07/19 12/08/19 19:00 07:00 Intake Total 55 ml Output Total 600 ml 500 ml Balance -600 ml -445 ml IV Total 55 ml Output Urine Total 600 ml 500 ml # Voids 1 General Appearance: no acute distress HEENT: normocephalic Respiratory/Chest: chest wall non-tender Cardiovascular: normal peripheral pulses Abdomen: normal bowel sounds Laboratory Tests 12/08/19 06:35: White Blood Count 8.4, Red Blood Count 3.61L, Hemoglobin 10.9L, Hematocrit 32.6L , Mean Corpuscular Volume 90, Mean Corpuscular Hemoglobin 30.3, Mean Corpuscular Hemoglobin Concent 33.6, Red Cell Distribution Width 12.6, Platelet Count 185, Mean Platelet Volume 5.4L, Neutrophils (%) (Auto) 79.1H, Lymphocytes (%) (Auto) 13.1L, Monocytes (%) (Auto) 5.3, Eosinophils (%) (Auto) 1.6, Basophils (%) (Auto) 0.8, Sodium Level 147H, Potassium Level 3.7, Chloride Level 113H, Carbon Dioxide Level 18L, Anion Gap 16H, Blood Urea Nitrogen 25H, Creatinine 1.5H, Estimat Glomerular Filtration Rate 44.5, Glucose Level 98, Calcium Level 9.4, Phosphorus Level 3.2, Magnesium Level 1.7L, Total Bilirubin 0.3, Direct Bilirubin < 0.1, Aspartate Amino Transf (AST/SGOT) 23, Alanine Aminotransferase (ALT/SGPT) 28, Alkaline Phosphatase 89, Total Protein 5.8L, Albumin 2.3L Current Medications Medications (Trade) Dose Ordered Sig/Breanna Route PRN Reason Start Time Stop Time Status Last Admin Dose Admin Acetaminophen (Tylenol) 650 mg Q6H PRN ORAL Mild Pain/Temp > 100.5 12/06/19 18:30 01/02/20 18:29 Albuterol/ Ipratropium (Albuterol/ Ipratropium) 3 ml Q6H PRN HHN Shortness of Breath 12/06/19 19:00 12/08/19 18:59 12/08/19 01:40 Aspirin (Ecotrin) 81 mg DAILY ORAL 12/07/19 09:00 01/03/20 08:59 Azithromycin 500 mg/Sodium Chloride 275 ml @ 275 mls/hr Q24HRS IV 12/07/19 14:00 12/10/19 14:59 12/08/19 14:37 Ceftriaxone Sodium 1 gm/ Sodium Chloride 55 ml @ 110 mls/hr QHS IVPB 12/06/19 21:00 12/12/19 20:59 12/07/19 21:21 Dextrose (Dextrose 50%) 25 ml Q30M PRN IV Hypoglycemia 12/06/19 18:30 01/02/20 18:29 12/07/19 16:59 Dextrose (Dextrose 50%) 50 ml Q30M PRN IV Hypoglycemia 12/06/19 18:30 01/02/20 18:29 Dextrose/Sodium Chloride 1,000 ml @ 75 mls/hr [id number] IV 12/08/19 08:30 01/07/20 08:29 12/08/19 08:53 Diphenhydramine HCl (Benadryl) 25 mg Q6H PRN ORAL Itching/Pruritis 12/06/19 19:00 01/02/20 18:59 Docusate Sodium (Colace) 100 mg TID ORAL 12/07/19 09:00 01/03/20 08:59 Heparin Sodium (Porcine) (Heparin 5000 units/ml) 5,000 units EVERY 12 HOURS SUBQ 12/06/19 21:00 01/03/20 08:59 12/08/19 08:54 Insulin Aspart (NovoLOG) BEFORE MEALS AND HS SUBQ 12/06/19 21:00 01/03/20 06:29 12/06/19 21:48 Insulin Detemir (Levemir) 8 units BEDTIME SUBQ 12/06/19 21:00 01/03/20 20:59 12/06/19 21:48 Mirtazapine (Remeron) 15 mg BEDTIME ORAL 12/06/19 21:00 01/03/20 20:59 Ondansetron HCl (Zofran) 4 mg Q6H PRN IVP Nausea & Vomiting 12/06/19 19:00 01/02/20 18:59 Pantoprazole (Protonix) 40 mg DAILY ORAL 12/07/19 09:00 01/03/20 08:59 Tamsulosin HCl (Flomax) 0.4 mg BID ORAL 12/07/19 09:00 01/03/20 08:59 Kenyon Garcia MD Dec 08, 2019 18:29
--- NOTE | 2019-12-08 19:22 | NUR ---
HAND-OFF: Report given to DENAE Atwood. Endorsed plan of care, informed RN that patient is high fall risk so that close monitoring of patient can continue.
[2019-12-08 20:00] VITALS: BP 111/70
--- NOTE | 2019-12-08 20:04 | NUR ---
NURSE NOTES: Pt is in bed, awake and verbal. Appears more alert. No acute distress noted. Vitas stable. Pt is currently NPO, awaiting PEG placement. Patient is asking to drink water and eat food. Pt was told that he has Swallow Eval ordered.Pt is on D5 1/2NS at 75 ml/hr. Pt's blood sugar will be monitored . Fall precaution in place, bed alarm on. Bed locked low in position,side rails up and call light within reach. Pt will be monitored.
[2019-12-08] MEDS: Levemir Flexpen SUBQ SCH (21:00)
[2019-12-08] MEDS: cefTRIAXone 1 GM in NS 55 ML IVPB SCH (21:57)
[2019-12-09] VITALS: BP 138/66
--- NOTE | 2019-12-09 03:18 | NUR ---
NURSE NOTES: Pt is in bed, awake. NO acute distress noted. Vitas stable.
[2019-12-09 04:00] VITALS: BP 146/66
[2019-12-09] MEDS: NovoLOG Insulin Flexpen SUBQ SCH ×4 (06:25→20:45)
--- NOTE | 2019-12-09 07:10 | NUR ---
NURSE NOTES:Handoff received from DENAE Atwood. Patient received sleeping in bed, no acute signs of distress noted, on room air. Patient has L hand IV running prescribed fluids, patient has condom cath, patent and draining, informed that patient has been sleeping most of the night. bed in the low and locked position with call light within reach, will continue to monitor patient.
--- NOTE | 2019-12-09 07:20 | NUR ---
HAND-OFF: Report given to DENAE Cristina.
--- NOTE | 2019-12-09 07:47 | Pulmonology Progress Note ---
Assessment/Plan Assessment/Plan IMPRESSION: 1. Left lung field pneumonia. 2. Hypertension. 3. Dementia. 4. prison resident. 5. Diabetes mellitus. DISCUSSION: Continue antibiotics. Respiratory hygiene with breathing treatment Diabetes control DVT prophylaxis. I will follow. Subjective Interval Events: None new reported Constitutional: Reports: no symptoms HEENT: Repors: no symptoms Respiratory: Reports: no symptoms Cardiovascular: Reports: no symptoms Gastrointestinal/Abdominal: Reports: no symptoms Allergies: Coded Allergies: No Known Allergies (Unverified , 12/09/13) Objective Last 24 Hour Vital Signs Date Time Temp Pulse Resp B/P (MAP) Pulse Ox O2 Delivery O2 Flow Rate FiO2 12/09/19 07:33 77 20 96 Room Air 21 12/09/19 04:00 97.8 58 16 146/66 (92) 97 12/09/19 00:00 97.4 58 18 138/66 (90) 95 12/08/19 21:00 Room Air 12/08/19 20:03 80 20 96 Room Air 21 12/08/19 20:00 97.7 80 21 111/70 (84) 96 12/08/19 16:00 98.2 93 18 152/75 (100) 99 12/08/19 12:00 98.0 50 18 168/57 (94) 98 12/08/19 09:00 Room Air 12/08/19 08:00 97.9 70 18 146/59 (88) 97 Intake and Output 12/08/19 12/09/19 19:00 07:00 Intake Total 875 ml 880 ml Output Total 600 ml 600 ml Balance 275 ml 280 ml IV Total 875 ml 880 ml Output Urine Total 600 ml 600 ml # Voids 1 General Appearance: no acute distress HEENT: normocephalic Respiratory/Chest: chest wall non-tender Cardiovascular: normal peripheral pulses Abdomen: normal bowel sounds Current Medications Medications (Trade) Dose Ordered Sig/Breanna Route PRN Reason Start Time Stop Time Status Last Admin Dose Admin Acetaminophen (Tylenol) 650 mg Q6H PRN ORAL Mild Pain/Temp > 100.5 12/06/19 18:30 01/02/20 18:29 Aspirin (Ecotrin) 81 mg DAILY ORAL 12/07/19 09:00 01/03/20 08:59 Azithromycin 500 mg/Sodium Chloride 275 ml @ 275 mls/hr Q24HRS IV 12/07/19 14:00 12/10/19 14:59 12/08/19 14:37 Ceftriaxone Sodium 1 gm/ Sodium Chloride 55 ml @ 110 mls/hr QHS IVPB 12/06/19 21:00 12/12/19 20:59 12/08/19 21:57 Dextrose (Dextrose 50%) 25 ml Q30M PRN IV Hypoglycemia 12/06/19 18:30 01/02/20 18:29 12/07/19 16:59 Dextrose (Dextrose 50%) 50 ml Q30M PRN IV Hypoglycemia 12/06/19 18:30 01/02/20 18:29 Dextrose/Sodium Chloride 1,000 ml @ 75 mls/hr [id number] IV 12/08/19 08:30 01/07/20 08:29 12/08/19 21:57 Diphenhydramine HCl (Benadryl) 25 mg Q6H PRN ORAL Itching/Pruritis 12/06/19 19:00 01/02/20 18:59 Docusate Sodium (Colace) 100 mg TID ORAL 12/07/19 09:00 01/03/20 08:59 Heparin Sodium (Porcine) (Heparin 5000 units/ml) 5,000 units EVERY 12 HOURS SUBQ 12/06/19 21:00 01/03/20 08:59 12/08/19 21:58 Insulin Aspart (NovoLOG) BEFORE MEALS AND HS SUBQ 12/06/19 21:00 01/03/20 06:29 12/09/19 06:25 Insulin Detemir (Levemir) 8 units BEDTIME SUBQ 12/06/19 21:00 01/03/20 20:59 12/06/19 21:48 Mirtazapine (Remeron) 15 mg BEDTIME ORAL 12/06/19 21:00 01/03/20 20:59 Ondansetron HCl (Zofran) 4 mg Q6H PRN IVP Nausea & Vomiting 12/06/19 19:00 01/02/20 18:59 Pantoprazole (Protonix) 40 mg DAILY ORAL 12/07/19 09:00 01/03/20 08:59 Tamsulosin HCl (Flomax) 0.4 mg BID ORAL 12/07/19 09:00 01/03/20 08:59 Kenyon Garcia MD 8, 2020 07:47
--- NOTE | 2019-12-09 07:58 | General Progress Note ---
Assessment/Plan Status: stable Assessment/Plan: Problems: (1) Encounter for PEG (percutaneous endoscopic gastrostomy) (2) Severe malnutrition (3) Dehydration (4) Anemia failed swallow eval start IVF Bioethic consult for consent for PEG repeat swallow eval on Tuesday Subjective Allergies: Coded Allergies: No Known Allergies (Unverified , 12/09/13) Objective Last 24 Hour Vital Signs Date Time Temp Pulse Resp B/P (MAP) Pulse Ox O2 Delivery O2 Flow Rate FiO2 12/09/19 07:33 77 20 96 Room Air 21 12/09/19 04:00 97.8 58 16 146/66 (92) 97 12/09/19 00:00 97.4 58 18 138/66 (90) 95 12/08/19 21:00 Room Air 12/08/19 20:03 80 20 96 Room Air 21 12/08/19 20:00 97.7 80 21 111/70 (84) 96 12/08/19 16:00 98.2 93 18 152/75 (100) 99 12/08/19 12:00 98.0 50 18 168/57 (94) 98 12/08/19 09:00 Room Air 12/08/19 08:00 97.9 70 18 146/59 (88) 97 Intake and Output 12/08/19 12/09/19 19:00 07:00 Intake Total 875 ml 880 ml Output Total 600 ml 600 ml Balance 275 ml 280 ml IV Total 875 ml 880 ml Output Urine Total 600 ml 600 ml # Voids 1 Height (Feet): 5 Height (Inches): 6.00 Weight (Pounds): 145 General Appearance: alert EENT: normal ENT inspection Neck: supple Cardiovascular: normal rate Respiratory/Chest: decreased breath sounds Abdomen: normal bowel sounds, non tender, soft Extremities: non-tender Lauro Bran MD Dec 09, 2019 07:58
[2019-12-09 08:00] VITALS: BP 141/60
[2019-12-09 08:30] LABS: BASOPHILS % (AUTO) 0.9 % (0.0-2.0); EOSINOPHILS % (AUTO) 2.7 % (0.0-3.0); HEMATOCRIT 31.9 % (42.0-52.0); HEMOGLOBIN 10.7 G/DL (14.2-18.0); LYMPHOCYTES % (AUTO) 14.7 % (20.0-45.0); MEAN CORPUSCULAR VOLUME 90 FL (80-99); MONOCYTES % (AUTO) 5.3 % (1.0-10.0); NEUTROPHILS % (AUTO) 76.4 % (45.0-75.0); PLATELET COUNT 189 K/UL (150-450); RED BLOOD COUNT 3.55 M/UL (4.70-6.10); RED CELL DISTRIBUTION WIDTH 12.4 % (11.6-14.8); WHITE BLOOD COUNT 8.3 K/UL (4.8-10.8)
[2019-12-09] MEDS: Aspirin EC 81mg tab ORAL SCH (08:53)
[2019-12-09] MEDS: Docusate 100mg cap ORAL SCH ×3 (08:53→17:47)
[2019-12-09] MEDS: Tamsulosin 0.4mg cap ORAL SCH ×2 (08:54→17:47)
[2019-12-09 08:58] LABS: ANION GAP 12 mmol/L (5-15); BLOOD UREA NITROGEN 18 mg/dL (7-18); CALCIUM 8.9 MG/DL (8.5-10.1); CARBON DIOXIDE 22 MMOL/L (21-32); CHLORIDE 110 MMOL/L (98-107); CREATININE 1.4 MG/DL (0.55-1.30); POTASSIUM 3.4 MMOL/L (3.5-5.1); SODIUM 144 MMOL/L (136-145)
[2019-12-09] MEDS: Heparin 5000 units/ml inj SUBQ SCH ×2 (09:14→20:57)
--- NOTE | 2019-12-09 11:42 | NUR ---
NURSE NOTES: Dr Liriano rounded on patient. mentioned insulin sliding scale as patient is NPO. Stated to give insulin if 150 or above, as patient is receiving Dextrose and 1/2 NS IV.
[2019-12-09 12:00] VITALS: BP 124/63
[2019-12-09] MEDS: D5 1/2NS 1,000 ML IV SCH (13:07)
--- NOTE | 2019-12-09 13:53 | General Progress Note ---
Assessment/Plan Status: stable Assessment/Plan: Mr. Dubon is a 84 year old male with hx of HTN, DM2, presenting from SNF with decreased PO intake, and KELLEN. #Decreased PO intake #Failure to thrive #Dysphagia -s/p IVF -Seen by speech -> recommends artificial feeding. -NGT couldn't be advanced per nursing (12/05). -pt failed video swallow -NPO at this time -D5W -GI consulted: plan to repeat video swallow Tuesday, Bioethic consult for PEG placement -Psychiatry following: Mirtazipine #Acute on chronic kidney disease #KELLEN - stable -likely diabetes mellitus and hypertension. -s/p IVF -Cr 1.5, likely new baseline -Nephrology following, consult appreciated #Cough #Leukocytosis - resolved #Left lung PNA -Continue empiric abx (Ceftriaxone, azithromycin 12/03- ) -CXR + for possible consolidation left lung -Sputum Cx w/normal fabiola -flu panel neg. -Pulmonology consult appreciated. #Chronic CH #ICM EF 50%, h/o CABG #Elevated troponin #bradycardia #Afib -BNP elevated. trop leak. likely from renal failure. -home coreg held 2/2 bradycardia. -cont. lisinopril -ASA, statin -off OAC -cardiology following, consult appreciated #hypoMagnesemia -replace, cont. to monitor #DM2 -Continue insulin sliding scale + long acting. -POCT glucose. #BPH -Continue flomax. #GERD -continue PPI Time spent on encounter: 36 mins, >50% on counseling, coordination of care. discussed case w/pt, GI/RN. Time of note does not reflect time of encounter. Subjective ROS Limited/Unobtainable: Yes - limited communication at this time, pt nodded "no" when asked if in pain Allergies: Coded Allergies: No Known Allergies (Unverified , 12/09/13) Subjective Pt w/ limited communication at this time, appears somnolent but easily arousable , will nod "no" when asked if in pain. Objective Last 24 Hour Vital Signs Date Time Temp Pulse Resp B/P (MAP) Pulse Ox O2 Delivery O2 Flow Rate FiO2 12/09/19 12:00 98.9 74 19 124/63 (83) 97 12/09/19 09:00 Room Air 12/09/19 08:00 98.9 61 18 141/60 (87) 98 12/09/19 07:33 77 20 96 Room Air 21 12/09/19 04:00 97.8 58 16 146/66 (92) 97 12/09/19 00:00 97.4 58 18 138/66 (90) 95 12/08/19 21:00 Room Air 12/08/19 20:03 80 20 96 Room Air 21 12/08/19 20:00 97.7 80 21 111/70 (84) 96 12/08/19 16:00 98.2 93 18 152/75 (100) 99 Intake and Output 12/08/19 12/09/19 19:00 07:00 Intake Total 875 ml 955 ml Output Total 600 ml 600 ml Balance 275 ml 355 ml IV Total 875 ml 955 ml Output Urine Total 600 ml 600 ml # Voids 1 Laboratory Tests 12/09/19 06:15: White Blood Count 8.3, Red Blood Count 3.55L, Hemoglobin 10.7L, Hematocrit 31.9L , Mean Corpuscular Volume 90, Mean Corpuscular Hemoglobin 30.2, Mean Corpuscular Hemoglobin Concent 33.6, Red Cell Distribution Width 12.4, Platelet Count 189, Mean Platelet Volume 5.4L, Neutrophils (%) (Auto) 76.4H, Lymphocytes (%) (Auto) 14.7L, Monocytes (%) (Auto) 5.3, Eosinophils (%) (Auto) 2.7, Basophils (%) (Auto) 0.9, Sodium Level 144, Potassium Level 3.4L, Chloride Level 110H, Carbon Dioxide Level 22, Anion Gap 12, Blood Urea Nitrogen 18, Creatinine 1.4H, Estimat Glomerular Filtration Rate 48.2, Glucose Level 193H, Calcium Level 8.9 Height (Feet): 5 Height (Inches): 6.00 Weight (Pounds): 145 Objective General Appearance: no apparent distress, somnolent but easily arousable Neck: supple Cardiovascular: normal rate, regular rhythm Respiratory/Chest: lungs clear, normal breath sounds Abdomen: non tender, soft Ext: no edema Fady Liriano M.D. Dec 09, 2019 13:53
[2019-12-09] MEDS: Azithromycin 500 MG in NS 275 ML IV SCH (14:10)
--- NOTE | 2019-12-09 15:17 | Nephrology Progress Note ---
Assessment/Plan Problem List: (1) Renal failure (ARF), acute on chronic (2) Diabetes (3) HTN (hypertension) (4) Anemia Assessment Acute on chronic kidney disease likely diabetes mellitus and hypertension. Patient had echogenic kidneys on previous kidney ultrasound on August 2019 Hypertension Diabetes mellitus History of pleural effusion Ejection fraction of 50% in previous echocardiogram in August 2019 Mild Anemia BPH . Plan Serum creatinine is stable Monitor renal parameters Keep the blood sugar and blood pressure and check Continue Flomax. Slow IV hydrate Check chest x-ray. Initiate anemia work-up. Continue per consultants. Subjective ROS Limited/Unobtainable: No Constitutional: Reports: malaise Objective Objective Last 24 Hour Vital Signs Date Time Temp Pulse Resp B/P (MAP) Pulse Ox O2 Delivery O2 Flow Rate FiO2 12/09/19 12:00 98.9 74 19 124/63 (83) 97 12/09/19 09:00 Room Air 12/09/19 08:00 98.9 61 18 141/60 (87) 98 12/09/19 07:33 77 20 96 Room Air 21 12/09/19 04:00 97.8 58 16 146/66 (92) 97 12/09/19 00:00 97.4 58 18 138/66 (90) 95 12/08/19 21:00 Room Air 12/08/19 20:03 80 20 96 Room Air 21 12/08/19 20:00 97.7 80 21 111/70 (84) 96 12/08/19 16:00 98.2 93 18 152/75 (100) 99 Intake and Output 12/08/19 12/09/19 19:00 07:00 Intake Total 875 ml 955 ml Output Total 600 ml 600 ml Balance 275 ml 355 ml IV Total 875 ml 955 ml Output Urine Total 600 ml 600 ml # Voids 1 Current Medications Medications (Trade) Dose Ordered Sig/Breanna Route PRN Reason Start Time Stop Time Status Last Admin Dose Admin Acetaminophen (Tylenol) 650 mg Q6H PRN ORAL Mild Pain/Temp > 100.5 12/06/19 18:30 01/02/20 18:29 Aspirin (Ecotrin) 81 mg DAILY ORAL 12/07/19 09:00 01/03/20 08:59 Azithromycin 500 mg/Sodium Chloride 275 ml @ 275 mls/hr Q24HRS IV 12/07/19 14:00 12/10/19 14:59 12/09/19 14:10 Ceftriaxone Sodium 1 gm/ Sodium Chloride 55 ml @ 110 mls/hr QHS IVPB 12/06/19 21:00 12/12/19 20:59 12/08/19 21:57 Dextrose (Dextrose 50%) 25 ml Q30M PRN IV Hypoglycemia 12/06/19 18:30 01/02/20 18:29 12/07/19 16:59 Dextrose (Dextrose 50%) 50 ml Q30M PRN IV Hypoglycemia 12/06/19 18:30 01/02/20 18:29 Dextrose/Sodium Chloride 1,000 ml @ 75 mls/hr [id number] IV 12/08/19 08:30 01/07/20 08:29 12/09/19 13:07 Diphenhydramine HCl (Benadryl) 25 mg Q6H PRN ORAL Itching/Pruritis 12/06/19 19:00 01/02/20 18:59 Docusate Sodium (Colace) 100 mg TID ORAL 12/07/19 09:00 01/03/20 08:59 Heparin Sodium (Porcine) (Heparin 5000 units/ml) 5,000 units EVERY 12 HOURS SUBQ 12/06/19 21:00 01/03/20 08:59 12/09/19 09:14 Insulin Aspart (NovoLOG) BEFORE MEALS AND HS SUBQ 12/06/19 21:00 01/03/20 06:29 12/09/19 06:25 Insulin Detemir (Levemir) 8 units BEDTIME SUBQ 12/06/19 21:00 01/03/20 20:59 12/06/19 21:48 Mirtazapine (Remeron) 15 mg BEDTIME ORAL 12/06/19 21:00 01/03/20 20:59 Ondansetron HCl (Zofran) 4 mg Q6H PRN IVP Nausea & Vomiting 12/06/19 19:00 01/02/20 18:59 Pantoprazole (Protonix) 40 mg DAILY ORAL 12/07/19 09:00 01/03/20 08:59 Potassium Chloride 100 ml @ 100 mls/hr Q1HR IVPB 12/09/19 14:00 12/09/19 15:59 Tamsulosin HCl (Flomax) 0.4 mg BID ORAL 12/07/19 09:00 01/03/20 08:59 Laboratory Tests 12/09/19 06:15: White Blood Count 8.3, Red Blood Count 3.55L, Hemoglobin 10.7L, Hematocrit 31.9L , Mean Corpuscular Volume 90, Mean Corpuscular Hemoglobin 30.2, Mean Corpuscular Hemoglobin Concent 33.6, Red Cell Distribution Width 12.4, Platelet Count 189, Mean Platelet Volume 5.4L, Neutrophils (%) (Auto) 76.4H, Lymphocytes (%) (Auto) 14.7L, Monocytes (%) (Auto) 5.3, Eosinophils (%) (Auto) 2.7, Basophils (%) (Auto) 0.9, Sodium Level 144, Potassium Level 3.4L, Chloride Level 110H, Carbon Dioxide Level 22, Anion Gap 12, Blood Urea Nitrogen 18, Creatinine 1.4H, Estimat Glomerular Filtration Rate 48.2, Glucose Level 193H, Calcium Level 8.9 Height (Feet): 5 Height (Inches): 6.00 Weight (Pounds): 145 General Appearance: no apparent distress Respiratory/Chest: lungs clear Abdomen: soft Bill Redman MD Dec 09, 2019 15:17
[2019-12-09 16:00] VITALS: BP 149/73
--- NOTE | 2019-12-09 19:16 | NUR ---
HAND-OFF: Report given to DENAE Atwood.
--- NOTE | 2019-12-09 19:40 | NUR ---
NURSE NOTES: Pt is in bed, awake and verbal. Appears more alert. No acute distress noted. Vitas stable. Pt is currently NPO, awaiting PEG placement. Patient is asking to drink water and eat food. Pt was told that he has Swallow Eval ordered for Tuesday.Pt is on D5 1/2NS at 75 ml/hr. Pt's blood sugar will be monitored . Fall precaution in place, bed alarm on. Bed locked low in position,side rails up and call light within reach. Pt will be monitored.
[2019-12-09 20:00] VITALS: BP 143/70
[2019-12-09] MEDS: Levemir Flexpen SUBQ SCH (20:44)
[2019-12-09] MEDS: cefTRIAXone 1 GM in NS 55 ML IVPB SCH (20:53)
[2019-12-10] VITALS: BP 137/89
[2019-12-10] MEDS: D5 1/2NS 1,000 ML IV SCH ×2 (01:16→14:38)
[2019-12-10 04:00] VITALS: BP 151/85
--- NOTE | 2019-12-10 05:00 | NUR ---
NURSE NOTES: Pt was repositioned, and cleaned frequently.
--- NOTE | 2019-12-10 05:30 | NUR ---
NURSE NOTES: Pt refused blood draw for labs, despite education and encouragement.
[2019-12-10] MEDS: NovoLOG Insulin Flexpen SUBQ SCH ×4 (06:01→22:39)
--- NOTE | 2019-12-10 07:00 | NUR ---
NURSE NOTES:Handoff received from DENAE Atwood. Patient received resting in bed, patient slightly agitated and stating he wants to go home, patient confused and not fully understanding that he needs to be discharged by the MD when he can either pass swallow evaluation or have a g tube placed. no acute signs of distress noted. IV site is clean dry and intact, kerlix wrapped and running prescribed fluids. Bed in the low and locked position with bed alarm on. Patient has condom cath patent and draining.
--- NOTE | 2019-12-10 07:08 | NUR ---
HAND-OFF: Report given to DENAE Cristina.Informed that pt needs lab draw which he refused earlier. Also ST Eval due today.
--- NOTE | 2019-12-10 07:42 | General Progress Note ---
Assessment/Plan Status: stable Assessment/Plan: Problems: (1) Encounter for PEG (percutaneous endoscopic gastrostomy) (2) Severe malnutrition (3) Dehydration (4) Anemia failed swallow eval IVF Bioethic consult for consent for PEG repeat swallow eval for today Subjective ROS Limited/Unobtainable: No Allergies: Coded Allergies: No Known Allergies (Unverified , 12/09/13) Objective Last 24 Hour Vital Signs Date Time Temp Pulse Resp B/P (MAP) Pulse Ox O2 Delivery O2 Flow Rate FiO2 12/10/19 04:00 98.0 89 20 151/85 (107) 95 12/10/19 00:00 97.8 88 19 137/89 (105) 95 12/09/19 21:00 Room Air 12/09/19 20:00 97.2 82 19 143/70 (94) 98 12/09/19 16:00 98.0 68 19 149/73 (98) 98 12/09/19 12:00 98.9 74 19 124/63 (83) 97 12/09/19 09:00 Room Air 12/09/19 08:00 98.9 61 18 141/60 (87) 98 Intake and Output 12/09/19 12/10/19 19:00 07:00 Intake Total 675 ml 955 ml Output Total 1400 ml 400 ml Balance -725 ml 555 ml IV Total 675 ml 955 ml Output Urine Total 1400 ml 400 ml # Voids 1 Height (Feet): 5 Height (Inches): 6.00 Weight (Pounds): 145 General Appearance: alert EENT: normal ENT inspection Neck: supple Cardiovascular: normal rate Respiratory/Chest: decreased breath sounds Abdomen: normal bowel sounds, non tender, soft Extremities: non-tender Lauro Bran MD Dec 10, 2019 07:42
[2019-12-10 08:00] VITALS: BP 112/61
[2019-12-10] MEDS: Aspirin EC 81mg tab ORAL SCH (08:06)
[2019-12-10] MEDS: Docusate 100mg cap ORAL SCH ×3 (08:06→18:00)
[2019-12-10] MEDS: Tamsulosin 0.4mg cap ORAL SCH ×2 (08:07→18:00)
[2019-12-10] MEDS: Heparin 5000 units/ml inj SUBQ SCH ×2 (08:28→22:38)
[2019-12-10 08:56] LABS: BASOPHILS % (AUTO) 0.9 % (0.0-2.0); EOSINOPHILS % (AUTO) 1.6 % (0.0-3.0); HEMATOCRIT 31.6 % (42.0-52.0); HEMOGLOBIN 10.7 G/DL (14.2-18.0); LYMPHOCYTES % (AUTO) 12.5 % (20.0-45.0); MEAN CORPUSCULAR VOLUME 90 FL (80-99); MONOCYTES % (AUTO) 4.5 % (1.0-10.0); NEUTROPHILS % (AUTO) 80.6 % (45.0-75.0); PLATELET COUNT 205 K/UL (150-450); RED BLOOD COUNT 3.51 M/UL (4.70-6.10); RED CELL DISTRIBUTION WIDTH 12.3 % (11.6-14.8); WHITE BLOOD COUNT 10.9 K/UL (4.8-10.8)
[2019-12-10 09:12] LABS: ANION GAP 12 mmol/L (5-15); BLOOD UREA NITROGEN 13 mg/dL (7-18); CARBON DIOXIDE 20 MMOL/L (21-32); CHLORIDE 109 MMOL/L (98-107); CREATININE 1.3 MG/DL (0.55-1.30); POTASSIUM 3.5 MMOL/L (3.5-5.1); SODIUM 141 MMOL/L (136-145)
--- NOTE | 2019-12-10 09:52 | NUR ---
Social Work This SW met with patient who is confused, has dementia and unable to consent for feeding tube. Patient has signed a POLST previously, with the agreement for fci feeding tube (currently on chart). This SW made an attempt to contact Angela Contreras @ [phone], while speaking with co-worker, Martha ([employer]), who explains they were the Homeless program managing Housing for patient (who is a ), but they are not the primary decision maker's for patient. This SW consulted with Dr Ojeda-Bioethjuan to follow. Pending Bioethics consultation at this time. Addendum: 12/10/19 at 1038 by MATT PAYTON Addendum: [place], Dr. Ojeda requesting to consult with Dr. Braxton gillespie (this SW made a request for Braxton to follow).
[2019-12-10 10:14] LABS: ALANINE AMINOTRANSFERASE 26 U/L (12-78); ALBUMIN 2.1 G/DL (3.4-5.0); ALKALINE PHOSPHATASE 90 U/L (46-116); ASPARTATE AMINO TRANSFERASE 27 U/L (15-37); BILIRUBIN,DIRECT 0.1 MG/DL (0.0-0.3); BILIRUBIN,TOTAL 0.4 MG/DL (0.2-1.0); PHOSPHORUS 2.1 MG/DL (2.5-4.9)
--- NOTE | 2019-12-10 11:37 | NUR ---
RD ASSESSMENT & RECOMMENDATIONS SEE CARE ACTIVITY FOR COMPLETE ASSESSMENT DAILY ESTIMATED NEEDS: Needs based on DM/ 66kg 25-30 kcals/kg 8450-7736 total kcals 1-1.3 g protein/kg 66-86 g total protein 25-30 mL/kg 0199-0448 total fluid mLs NUTRITION DIAGNOSIS: Swallowing difficulty R/T dysphagia as evidenced by ASSISTANT PROFESSOR OF BIOCHEMISTRY recommends NPO, nonoral feeding at this time, pending Bioethics for possible PEG. CURRENT DIET:NPO PO DIET RECOMMENDATIONS: IF SAFE FOR ORAL DIET -> CCHO MED + LOW NA / texture per ASSISTANT PROFESSOR OF BIOCHEMISTRY ENTERAL NUTRITION RECOMMENDATIONS: Glucerna 1.2 @ 60ml/hr x 24 hrs to provide 1440ml, 1728kcal, 86g prot, 1159ml free water * W/ GI access, initiate Glucerna 1.2 @ 20ml/hr x 6 hrs * Advance 10ml q 4-6 hrs as tolerated to goal rate * HOB over 30 degrees * H20 flush of 150ml q 6 hrs ADDITIONAL RECOMMENDATIONS: * Calibrated bedscale wt for accurate CBW * Monitor lytes, replete as needed * Monitor BGs closely w/ D5, need to adjust insulin * Monitor readiness for oral diet * TF recs as above if part of POC/ Bioethics pending .
--- NOTE | 2019-12-10 12:49 | Nephrology Progress Note ---
Assessment/Plan Problem List: (1) Renal failure (ARF), acute on chronic (2) Diabetes (3) HTN (hypertension) (4) Anemia Assessment Acute on chronic kidney disease likely diabetes mellitus and hypertension. Patient had echogenic kidneys on previous kidney ultrasound on August 2019 Hypertension Diabetes mellitus History of pleural effusion Ejection fraction of 50% in previous echocardiogram in August 2019 Mild Anemia BPH . Plan Magnesium and phosphorus supplement intravenously Serum creatinine is stable Monitor renal parameters Keep the blood sugar and blood pressure and check Continue Flomax. Slow IV hydrate Check chest x-ray. Initiate anemia work-up. Continue per consultants. Subjective ROS Limited/Unobtainable: No Constitutional: Reports: other Objective Objective Last 24 Hour Vital Signs Date Time Temp Pulse Resp B/P (MAP) Pulse Ox O2 Delivery O2 Flow Rate FiO2 12/10/19 08:28 Room Air 12/10/19 08:00 97.7 81 17 112/61 (78) 96 12/10/19 04:00 98.0 89 20 151/85 (107) 95 12/10/19 00:00 97.8 88 19 137/89 (105) 95 12/09/19 21:00 Room Air 12/09/19 20:00 97.2 82 19 143/70 (94) 98 12/09/19 16:00 98.0 68 19 149/73 (98) 98 Intake and Output 12/09/19 12/10/19 19:00 07:00 Intake Total 675 ml 955 ml Output Total 1400 ml 400 ml Balance -725 ml 555 ml IV Total 675 ml 955 ml Output Urine Total 1400 ml 400 ml # Voids 1 Laboratory Tests 12/10/19 08:40: White Blood Count 10.9H, Red Blood Count 3.51L, Hemoglobin 10.7L, Hematocrit 31.6L, Mean Corpuscular Volume 90, Mean Corpuscular Hemoglobin 30.5, Mean Corpuscular Hemoglobin Concent 33.9, Red Cell Distribution Width 12.3, Platelet Count 205, Mean Platelet Volume 6.0L, Neutrophils (%) (Auto) 80.6H, Lymphocytes (%) (Auto) 12.5L, Monocytes (%) (Auto) 4.5, Eosinophils (%) (Auto) 1.6, Basophils (%) (Auto) 0.9, Sodium Level 141, Potassium Level 3.5, Chloride Level 109H, Carbon Dioxide Level 20L, Anion Gap 12, Blood Urea Nitrogen 13, Creatinine 1.3, Estimat Glomerular Filtration Rate 52.5, Glucose Level 169H, Calcium Level 9.0, Phosphorus Level 2.1L, Magnesium Level 1.5L, Total Bilirubin 0.4, Direct Bilirubin 0.1, Aspartate Amino Transf (AST/SGOT) 27, Alanine Aminotransferase (ALT/SGPT) 26, Alkaline Phosphatase 90, Total Protein 5.8L, Albumin 2.1L Height (Feet): 5 Height (Inches): 6.00 Weight (Pounds): 145 General Appearance: no apparent distress - More responsive Respiratory/Chest: lungs clear Abdomen: soft Objective No major change Bill Redman MD Dec 10, 2019 12:49
--- NOTE | 2019-12-10 13:35 | Cardiac Electrophysiology PN ---
Assessment/Plan Assessment/Plan 1. Ischemic cardiomyopathy, EF 50% in 08/2019 and high BNP. Off Coreg as was migdalia down to 30s in prior admission and now in 50s. Off lisinopril now 2. 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 Off Coreg. No CP. 3. Paroxysmal atrial fibrillation, remained in sinus rhythm with first-degree AV block when on tele. Off anticoagulation and was off even at the [facility] 4. Hyperlipidemia on Lipitor. 5. Urinary tract infection. 6. Hospital-acquired pneumonia. DARON RN Subjective Subjective No events on NMB.No CP or SOB. Rescheduled for swallow eval again. NPO now. Objective Last 24 Hour Vital Signs Date Time Temp Pulse Resp B/P (MAP) Pulse Ox O2 Delivery O2 Flow Rate FiO2 12/10/19 12:00 12/10/19 08:28 Room Air 12/10/19 08:00 97.7 81 17 112/61 (78) 96 12/10/19 04:00 98.0 89 20 151/85 (107) 95 12/10/19 00:00 97.8 88 19 137/89 (105) 95 12/09/19 21:00 Room Air 12/09/19 20:00 97.2 82 19 143/70 (94) 98 12/09/19 16:00 98.0 68 19 149/73 (98) 98 Intake and Output 12/09/19 12/10/19 19:00 07:00 Intake Total 675 ml 955 ml Output Total 1400 ml 400 ml Balance -725 ml 555 ml IV Total 675 ml 955 ml Output Urine Total 1400 ml 400 ml # Voids 1 Laboratory Tests Test 12/10/19 08:40 White Blood Count 10.9 K/UL (4.8-10.8) H Red Blood Count 3.51 M/UL (4.70-6.10) L Hemoglobin 10.7 G/DL (14.2-18.0) L Hematocrit 31.6 % (42.0-52.0) L Mean Corpuscular Volume 90 FL (80-99) Mean Corpuscular Hemoglobin 30.5 PG (27.0-31.0) Mean Corpuscular Hemoglobin Concent 33.9 G/DL (32.0-36.0) Red Cell Distribution Width 12.3 % (11.6-14.8) Platelet Count 205 K/UL (150-450) Mean Platelet Volume 6.0 FL (6.5-10.1) L Neutrophils (%) (Auto) 80.6 % (45.0-75.0) H Lymphocytes (%) (Auto) 12.5 % (20.0-45.0) L Monocytes (%) (Auto) 4.5 % (1.0-10.0) Eosinophils (%) (Auto) 1.6 % (0.0-3.0) Basophils (%) (Auto) 0.9 % (0.0-2.0) Sodium Level 141 MMOL/L (136-145) Potassium Level 3.5 MMOL/L (3.5-5.1) Chloride Level 109 MMOL/L (98-107) H Carbon Dioxide Level 20 MMOL/L (21-32) L Anion Gap 12 mmol/L (5-15) Blood Urea Nitrogen 13 mg/dL (7-18) Creatinine 1.3 MG/DL (0.55-1.30) Estimat Glomerular Filtration Rate 52.5 mL/min (>60) Glucose Level 169 MG/DL (74-106) H Calcium Level 9.0 MG/DL (8.5-10.1) Phosphorus Level 2.1 MG/DL (2.5-4.9) L Magnesium Level 1.5 MG/DL (1.8-2.4) L Total Bilirubin 0.4 MG/DL (0.2-1.0) Direct Bilirubin 0.1 MG/DL (0.0-0.3) Aspartate Amino Transf (AST/SGOT) 27 U/L (15-37) Alanine Aminotransferase (ALT/SGPT) 26 U/L (12-78) Alkaline Phosphatase 90 U/L (46-116) Total Protein 5.8 G/DL (6.4-8.2) L Albumin 2.1 G/DL (3.4-5.0) L Objective HEAD AND NECK: Shows mild JVD. LUNGS: Coarse rhonchi. CARDIOVASCULAR: Regular S1 and S2 with no gallop. Sternotomy scar is intact. ABDOMEN: Soft. EXTREMITIES: No pitting edema. Sixto Wiggins MD Dec 10, 2019 13:35
--- NOTE | 2019-12-10 13:47 | NUR ---
*-* INSURANCE *-* ALL CLINICALS HAVE BEEN FAXED TO: TANISHA Odonnell # [phone]
--- NOTE | 2019-12-10 14:26 | Pulmonology Progress Note ---
Assessment/Plan Assessment/Plan IMPRESSION: 1. Left lung field pneumonia. 2. Hypertension. 3. Dementia. 4. [facility] resident. 5. Diabetes mellitus. DISCUSSION: Continue antibiotics. Respiratory hygiene with breathing treatment Diabetes control DVT prophylaxis. I will follow. Subjective Interval Events: none new reported Constitutional: Reports: no symptoms HEENT: Repors: no symptoms Respiratory: Reports: no symptoms Cardiovascular: Reports: no symptoms Gastrointestinal/Abdominal: Reports: no symptoms Genitourinary: Reports: no symptoms Allergies: Coded Allergies: No Known Allergies (Unverified , 12/09/13) Objective Last 24 Hour Vital Signs Date Time Temp Pulse Resp B/P (MAP) Pulse Ox O2 Delivery O2 Flow Rate FiO2 12/10/19 12:00 12/10/19 08:28 Room Air 12/10/19 08:00 97.7 81 17 112/61 (78) 96 12/10/19 04:00 98.0 89 20 151/85 (107) 95 12/10/19 00:00 97.8 88 19 137/89 (105) 95 12/09/19 21:00 Room Air 12/09/19 20:00 97.2 82 19 143/70 (94) 98 12/09/19 16:00 98.0 68 19 149/73 (98) 98 Intake and Output 12/09/19 12/10/19 19:00 07:00 Intake Total 675 ml 955 ml Output Total 1400 ml 400 ml Balance -725 ml 555 ml IV Total 675 ml 955 ml Output Urine Total 1400 ml 400 ml # Voids 1 General Appearance: no acute distress HEENT: normocephalic Respiratory/Chest: chest wall non-tender Cardiovascular: normal peripheral pulses Abdomen: normal bowel sounds Laboratory Tests 12/10/19 08:40: White Blood Count 10.9H, Red Blood Count 3.51L, Hemoglobin 10.7L, Hematocrit 31.6L, Mean Corpuscular Volume 90, Mean Corpuscular Hemoglobin 30.5, Mean Corpuscular Hemoglobin Concent 33.9, Red Cell Distribution Width 12.3, Platelet Count 205, Mean Platelet Volume 6.0L, Neutrophils (%) (Auto) 80.6H, Lymphocytes (%) (Auto) 12.5L, Monocytes (%) (Auto) 4.5, Eosinophils (%) (Auto) 1.6, Basophils (%) (Auto) 0.9, Sodium Level 141, Potassium Level 3.5, Chloride Level 109H, Carbon Dioxide Level 20L, Anion Gap 12, Blood Urea Nitrogen 13, Creatinine 1.3, Estimat Glomerular Filtration Rate 52.5, Glucose Level 169H, Calcium Level 9.0, Phosphorus Level 2.1L, Magnesium Level 1.5L, Total Bilirubin 0.4, Direct Bilirubin 0.1, Aspartate Amino Transf (AST/SGOT) 27, Alanine Aminotransferase (ALT/SGPT) 26, Alkaline Phosphatase 90, Total Protein 5.8L, Albumin 2.1L Current Medications Medications (Trade) Dose Ordered Sig/Breanna Route PRN Reason Start Time Stop Time Status Last Admin Dose Admin Acetaminophen (Tylenol) 650 mg Q6H PRN ORAL Mild Pain/Temp > 100.5 12/06/19 18:30 01/02/20 18:29 Aspirin (Ecotrin) 81 mg DAILY ORAL 12/07/19 09:00 01/03/20 08:59 Azithromycin 500 mg/Sodium Chloride 275 ml @ 275 mls/hr Q24HRS IV 12/07/19 14:00 12/10/19 14:59 12/09/19 14:10 Ceftriaxone Sodium 1 gm/ Sodium Chloride 55 ml @ 110 mls/hr QHS IVPB 12/06/19 21:00 12/12/19 20:59 12/09/19 20:53 Dextrose (Dextrose 50%) 25 ml Q30M PRN IV Hypoglycemia 12/06/19 18:30 01/02/20 18:29 12/07/19 16:59 Dextrose (Dextrose 50%) 50 ml Q30M PRN IV Hypoglycemia 12/06/19 18:30 01/02/20 18:29 Dextrose/Sodium Chloride 1,000 ml @ 75 mls/hr [id number] IV 12/08/19 08:30 01/07/20 08:29 12/10/19 01:16 Diphenhydramine HCl (Benadryl) 25 mg Q6H PRN ORAL Itching/Pruritis 12/06/19 19:00 01/02/20 18:59 Docusate Sodium (Colace) 100 mg TID ORAL 12/07/19 09:00 01/03/20 08:59 Heparin Sodium (Porcine) (Heparin 5000 units/ml) 5,000 units EVERY 12 HOURS SUBQ 12/06/19 21:00 01/03/20 08:59 12/10/19 08:28 Insulin Aspart (NovoLOG) BEFORE MEALS AND HS SUBQ 12/06/19 21:00 01/03/20 06:29 12/10/19 06:01 Insulin Detemir (Levemir) 8 units BEDTIME SUBQ 12/06/19 21:00 01/03/20 20:59 12/06/19 21:48 Magnesium Sulfate 100 ml @ 100 mls/hr Q1H IVPB 12/10/19 13:00 12/10/19 16:59 12/10/19 13:30 Mirtazapine (Remeron) 15 mg BEDTIME ORAL 12/06/19 21:00 01/03/20 20:59 Ondansetron HCl (Zofran) 4 mg Q6H PRN IVP Nausea & Vomiting 12/06/19 19:00 01/02/20 18:59 Pantoprazole (Protonix) 40 mg DAILY ORAL 12/07/19 09:00 01/03/20 08:59 Potassium Phosphate 250 ml @ 62.5 mls/hr Q4H IVPB 12/10/19 14:00 12/10/19 21:59 Tamsulosin HCl (Flomax) 0.4 mg BID ORAL 12/07/19 09:00 01/03/20 08:59 Kenyon Garcia MD Dec 10, 2019 14:26
[2019-12-10] MEDS: Azithromycin 500 MG in NS 275 ML IV SCH (14:38)
--- NOTE | 2019-12-10 15:11 | NUR ---
CASE MANAGEMENT:REVIEW 12/08/2019 SI; AC KIDNEY FAILURE. FTT. MALNUTRITION. 98.0 50 20 168/57 95% ON RA NA 147 CL 113 BUN 25 CR 1.5 MG 1.7 IS; AZITHROMYCIN IV Q24 HRS ASA PO QD PROTONIX PO QD ROCEPHIN IV QHS HEPARIN SUBQ Q12 HRS DUO NEB HHN Q6 HRS IVF D5W @75 ML/HR MED SURG STATUS DCP; FROM [facility] CASE MANAGEMENT:REVIEW 12/09/2019 SI; AC KIDNEY FAILURE. FTT. MALNUTRITION. 98.9 82 20 149/73 96% ON RA K+ 3.4 CL 110 CR 1.4 IS; AZITHROMYCIN IV Q24 HRS ASA PO QD PROTONIX PO QD ROCEPHIN IV QHS HEPARIN SUBQ Q12 HRS DUO NEB HHN Q6 HRS IVF D5W @75 ML/HR MED SURG STATUS DCP; FROM [facility] CASE MANAGEMENT:REVIEW 12/10/2019 SI; AC KIDNEY FAILURE. FTT. MALNUTRITION. 98.0 89 20 151/85 95% ON RA WBC 10.9 CL 109 PHOS 2.1 MG 1.5 IS; AZITHROMYCIN IV Q24 HRS ASA PO QD PROTONIX PO QD ROCEPHIN IV QHS HEPARIN SUBQ Q12 HRS DUO NEB HHN Q6 HRS IVF D5W @75 ML/HR MED SURG STATUS DCP; [facility]
[2019-12-10] MEDS: Potassium Phosphate 15mm/250ml 250 ML IVPB SCH ×2 (15:58→22:13)
--- NOTE | 2019-12-10 16:32 | NUR ---
NURSE NOTES: patient refused vitals with STAFF ASSISTANT, attempted to take patient vitals and accucheck but patient refused and was verbally abusive responding with "I will slap you right across your face, get out of here go sell your (expletive) on the street" vitals and blood glucose unable to obtain.
--- NOTE | 2019-12-10 16:33 | General Progress Note ---
Assessment/Plan Status: stable Assessment/Plan: Mr. Dubon is a 84 year old male with hx of HTN, DM2, presenting from SNF with decreased PO intake, and KELLEN. #Decreased PO intake #Failure to thrive #Dysphagia -s/p IVF -Seen by speech -> recommends artificial feeding. -NGT couldn't be advanced per nursing (12/05). -pt failed video swallow -NPO at this time -D5W -GI consulted: plan to repeat video swallow Tuesday, will likely need PEG this admission -Psychiatry following: Mirtazipine #Acute on chronic kidney disease #KELLEN - stable -likely diabetes mellitus and hypertension. -s/p IVF -Cr 1.5, likely new baseline -Nephrology following #Cough #Leukocytosis - resolved #Left lung PNA -Continue empiric abx (Ceftriaxone, azithromycin 12/03- ) -CXR + for possible consolidation left lung -Sputum Cx w/normal fabiola -flu panel neg. -Pulmonology consult appreciated. #Chronic dCHF #ICM EF 50%, h/o CABG #Elevated troponin #bradycardia #Afib -BNP elevated. trop leak. likely from renal failure. -home coreg held 2/2 bradycardia. -cont. lisinopril -ASA, statin -off OAC -cardiology following, consult appreciated #hypoMagnesemia -replace with IV Mag -check labs in AM #DM2 -Continue insulin sliding scale + long acting. -POCT glucose. #BPH -Continue flomax. #GERD -continue PPI Time spent on encounter: 35 mins, >50% on counseling, coordination of care. I spent an additional 35 minutes on review of medical records including prior outside hospital records, consult notes, progress notes, procedures, imaging, labs, hemodynamics, and other clinical documentation. Subjective Date patient seen: Dec 10, 2019 Time patient seen: 12:39 ROS Limited/Unobtainable: Yes Constitutional: Denies: fever Cardiovascular: Denies: chest pain Respiratory: Denies: cough Gastrointestinal/Abdominal: Denies: abdominal pain Allergies: Coded Allergies: No Known Allergies (Unverified , 12/09/13) Subjective Follow up for KELLEN, poor oral intake, dysphagia, hypomagnesemia No acute events overnight. Mg of 1.5 today Objective Last 24 Hour Vital Signs Date Time Temp Pulse Resp B/P (MAP) Pulse Ox O2 Delivery O2 Flow Rate FiO2 12/10/19 12:00 12/10/19 08:28 Room Air 12/10/19 08:00 97.7 81 17 112/61 (78) 96 12/10/19 04:00 98.0 89 20 151/85 (107) 95 12/10/19 00:00 97.8 88 19 137/89 (105) 95 12/09/19 21:00 Room Air 12/09/19 20:00 97.2 82 19 143/70 (94) 98 Intake and Output 12/09/19 12/10/19 19:00 07:00 Intake Total 675 ml 955 ml Output Total 1400 ml 400 ml Balance -725 ml 555 ml IV Total 675 ml 955 ml Output Urine Total 1400 ml 400 ml # Voids 1 Laboratory Tests 12/10/19 08:40: White Blood Count 10.9H, Red Blood Count 3.51L, Hemoglobin 10.7L, Hematocrit 31.6L, Mean Corpuscular Volume 90, Mean Corpuscular Hemoglobin 30.5, Mean Corpuscular Hemoglobin Concent 33.9, Red Cell Distribution Width 12.3, Platelet Count 205, Mean Platelet Volume 6.0L, Neutrophils (%) (Auto) 80.6H, Lymphocytes (%) (Auto) 12.5L, Monocytes (%) (Auto) 4.5, Eosinophils (%) (Auto) 1.6, Basophils (%) (Auto) 0.9, Sodium Level 141, Potassium Level 3.5, Chloride Level 109H, Carbon Dioxide Level 20L, Anion Gap 12, Blood Urea Nitrogen 13, Creatinine 1.3, Estimat Glomerular Filtration Rate 52.5, Glucose Level 169H, Calcium Level 9.0, Phosphorus Level 2.1L, Magnesium Level 1.5L, Total Bilirubin 0.4, Direct Bilirubin 0.1, Aspartate Amino Transf (AST/SGOT) 27, Alanine Aminotransferase (ALT/SGPT) 26, Alkaline Phosphatase 90, Total Protein 5.8L, Albumin 2.1L Height (Feet): 5 Height (Inches): 6.00 Weight (Pounds): 145 General Appearance: no apparent distress, alert Neck: normal alignment, supple Cardiovascular: normal rate, regular rhythm Respiratory/Chest: lungs clear, normal breath sounds Abdomen: non tender, soft Marcus Patel MD Dec 10, 2019 16:33
--- NOTE | 2019-12-10 17:18 | NUR ---
ST NOTES: SWALLOW STATUS: SEEN FOR SWALLOW EVAL ON 12/06/19 (SEE REPORT). PER DR ALEXANDRE, RE-EVALUATE SWALLOW SKILLS SINCE PATIENT IS MORE ALERT AND UNABLE TO GET IN NGT 12 CHINESE WITH MULTIPLE STAFF ATTEMPTS. PER CT HEAD SCAN 12/06/19: Impression: No acute intracranial bleed, mass effect or edema. Moderate atrophy of the brain. Evidence of chronic small vessel disease involving white matter tracts. Pansinusitis PER CXR 12/04/19 IMPRESSION: No change from the prior exam. Pneumonia or infiltrate at the left lung base may be present. Correlate clinically. Bilateral pleural thickening and calcification PATIENT WAS ALERT BUT CONFUSED. ABLE TO SAY SOME INTELLIGIBLE WORDS AND PHRASES (CONFABULATING). INITIAL IMPRESSIONS: S/S OF AT LEAST A MILD OROPHARYNGEAL DYSPHAGIA WITH INCREASED TRANSIT TIMES. GIVEN NECTAR THICK LIQUID TSP AND CUP SIP, ABLE TO SWALLOW AFTER 2 SECONDS WITH FAIR HYOLARYNGEAL EXCURSION AND NO OVERT ASPIRATION. GIVEN PUREED TSP, ABLE TO SWALLOW AFTER A FEW SECONDS WITH FAIR HYOLARYNGEAL EXCURSION, NO ORAL RESIDUE NOR OVERT ASPIRATION. HAS SILENT ASPIRATION RISK GIVEN H/O DEMENTIA, COPD, PNA HX AND CURRENT PNA BUT NO NEED TO SUCTION ORALLY AND NO COUGH NOTED (ON ROOM AIR) RISK FOR POOR AND VERY SLOW INTAKE GIVEN INCONSISTENT POINTER MACHINE OPERATOR TO PO INTAKE RECOMENDATIONS: CONSIDER MOD BARIUM SWALLOW STUDY TO FURTHER ASSESS SWALLOW, DETERMINE SILENT ASP RISK, AND ATTEMPT TRIAL TX IF PO GIVEN FOR QUALITY OF LIFE, CONSIDER PUREED AND NECTAR THICK LIQUIDS FOR NOW (LOW NA AND CCHO-MED AND GLUCERNA TID PER RD ON 12/10/19 NOTE) WITH POSTED ASPIRATION AND REFLUX PRECAUTIONS AND ONE TO ONE FEEDING. CONTINUE WITH SKILLED DYSPHAGIA MANAGEMENT AND TX AND COG-COM EVAL/TX EDUCATED/TRAINED STAFF IN POSTED PRECAUTIONS. Addendum: 12/10/19 at 1718 by SAMIA GUERRA AUTOMATIC DIE CUTTING MACHINE OPERATOR LEFT MESSAGE WITH DR BALDOMERO GOMEZ MD
--- NOTE | 2019-12-10 18:00 | NUR ---
NURSE NOTES: Patient passed swallow evaluation, Ammy speech therapist put order for diet with texture modifications and nectar thick liquids.
--- NOTE | 2019-12-10 18:20 | NUR ---
NURSE NOTES: Patient passed swallow evaluation. 1800 medications crushed and placed in apple sauce, patient refused medications. Medications opened and placed in apple sauce and therefore unable to return to xus, medications wasted.
--- NOTE | 2019-12-10 19:41 | NUR ---
HAND-OFF: Report given to DENAE Lieberman.
--- NOTE | 2019-12-10 19:45 | NUR ---
NURSE NOTES: Received report from DENAE Cristina. Patient in stable condition. No distress noted. Bed in low position, locked, side rails up x3, call light within reach. Will continue to monitor.
[2019-12-10 20:00] VITALS: BP 134/67
[2019-12-10] MEDS: cefTRIAXone 1 GM in NS 55 ML IVPB SCH (20:42)
[2019-12-10] MEDS: Levemir Flexpen SUBQ SCH (22:40)
[2019-12-11] VITALS: BP 125/67
[2019-12-11] MEDS: D5 1/2NS 1,000 ML IV SCH ×2 (03:10→12:53)
[2019-12-11 04:00] VITALS: BP 131/68
--- NOTE | 2019-12-11 06:15 | Progress Note ---
DATE: 12/10/2019 SUBJECTIVE: The patient is in bed, withdrawn, no energy, fatigue, poor insight, not able to be engaged. MENTAL STATUS EXAMINATION: The patient is alert, oriented times self, disoriented and has episodes of agitation. Mood is anxious. Affect is flat. Thought process is concrete. Thought content, no suicidal or homicidal ideation. ASSESSMENT: 1. Major depressive disorder. 2. Dementia. PLAN: 1. Lexapro 10 mg. 2. Remeron 15 mg at bedtime to increase his appetite and help him sleep. 3. Discussed with the nurse. Ana Chao M.D. DR: Shiv JOB#: [id number] CC:
[2019-12-11] MEDS: NovoLOG Insulin Flexpen SUBQ SCH ×4 (06:20→20:26)
[2019-12-11 07:06] LABS: ANION GAP 13 mmol/L (5-15); BLOOD UREA NITROGEN 11 mg/dL (7-18); CALCIUM 8.6 MG/DL (8.5-10.1); CARBON DIOXIDE 20 MMOL/L (21-32); CHLORIDE 111 MMOL/L (98-107); CREATININE 1.2 MG/DL (0.55-1.30); POTASSIUM 3.6 MMOL/L (3.5-5.1); SODIUM 144 MMOL/L (136-145)
[2019-12-11 07:15] LABS: BASOPHILS % (AUTO) 0.8 % (0.0-2.0); EOSINOPHILS % (AUTO) 1.8 % (0.0-3.0); HEMATOCRIT 30.3 % (42.0-52.0); HEMOGLOBIN 10.5 G/DL (14.2-18.0); LYMPHOCYTES % (AUTO) 12.8 % (20.0-45.0); MEAN CORPUSCULAR VOLUME 89 FL (80-99); NEUTROPHILS % (AUTO) 79.7 % (45.0-75.0); PLATELET COUNT 200 K/UL (150-450); RED BLOOD COUNT 3.42 M/UL (4.70-6.10); WHITE BLOOD COUNT 10.8 K/UL (4.8-10.8)
--- NOTE | 2019-12-11 07:19 | NUR ---
HAND-OFF: Report given to DENAE Bunn. patient in stable condition.
[2019-12-11 08:00] VITALS: BP 107/59
--- NOTE | 2019-12-11 08:00 | NUR ---
NURSE NOTES: PT AXOX1, RESTING IN BED. CALM. IN NO APPARENT DISTRESS AT THIS TIME. PT UNABLE TO RESPOND TO RN'S QUESTIONS. ABLE TO OPEN EYES SPONTANEOUSLY BY VOICE AND SHAKING. PT'S NET SOFTWARE ARCHITECT IS WEAK. BED IN LOWEST POSITION WITH BEDSIDE RAILS X3 RAISED. BED ALARM ON ZONE 1. CALL LIGHT WITHIN REACH. IN SEMI-BOLTON'S POSITION WITH HOB ELEVATED. WILL CONTINUE TO MONITOR.
[2019-12-11] MEDS: Aspirin EC 81mg tab ORAL SCH (09:16)
[2019-12-11] MEDS: Tamsulosin 0.4mg cap ORAL SCH ×2 (09:16→17:04)
[2019-12-11] MEDS: Docusate 100mg cap ORAL SCH ×3 (09:16→17:04)
[2019-12-11] MEDS: Heparin 5000 units/ml inj SUBQ SCH ×2 (09:16→20:36)
--- NOTE | 2019-12-11 09:49 | NUR ---
ST NOTES: SWALLOW STATUS: PATIENT NOT ALERT FOR PO TRIALS AND MODFIED BARIUM SWALLOW STUDY. PER RNVICKI, PATIENT TOOK CRUSHED MEDS WITH APPLESAUCE W/O OVERT ASPIRATION AND WITH A LOT OF ENCOURAGEMENT. SHE ALSO SAID HE SEEMED VERY SLEEPY TODAY. PER GR[employer]ER [employer] REPORTS, GOALS NOT MET FOR INTAKE ON PUREED AND NECTAR THICK LIQUIDS AND HIGH CALORIE SUPPLEMENTS PATIENT REFUSED PO 2 TIMES. GOALS MET FOR NEW INSIDE SALES CONSULTANT VICKI AND [employer] BENI EDUCATED/TRAINED IN POSTED ASPIRATION PRECAUTIONS POSTED. D/W DR MOHR WHO PUT PATIENT ON A 24 HOUR CALORIE COUNT. INFORMED DR ALEXANDRE THAT THE POLST STATES OK TO HAVE PAINTER ROUGH TUBE FEEDINGS (SIGNED BY PATIENT IN 2018). PATIENT APPEARS TO AT LEAST A MODERATE DEMENTIA SINCE HE IS STILL VERBAL. ALTHOUGH HE IS ABLE TO CONVEY SOME BASIC NEEDS, HE IS VERY CONFUSED AND NEEDS A LOT OF ENCOURAGEMENT TO TAKE PO. UNLIKELY TO MEET NUTRITIONAL/HYDRATION NEEDS BY MOUTH. PLAN: F/UP WITH PLAN OF CARE IN SWALLOW EVAL REPORT MONITOR FOR READINESS FOR MODIFIED BARIUM SWALLOW STUDY (MUST BE MORE CONSISTENT IN TAKING PO) CONTINUE WITH PUREED/NECTAR THICK LIQUIDS WITH POSTED ASPIRATION PRECAUTIONS.
--- NOTE | 2019-12-11 10:57 | General Progress Note ---
Assessment/Plan Status: stable Assessment/Plan: Problems: (1) Encounter for PEG (percutaneous endoscopic gastrostomy) (2) Severe malnutrition (3) Dehydration (4) Anemia failed swallow eval IVF Bioethic consult for consent for PEG need peg for FTT Subjective Allergies: Coded Allergies: No Known Allergies (Unverified , 12/09/13) Objective Last 24 Hour Vital Signs Date Time Temp Pulse Resp B/P (MAP) Pulse Ox O2 Delivery O2 Flow Rate FiO2 12/11/19 09:00 Room Air 12/11/19 08:00 97.8 74 18 107/59 (75) 93 12/11/19 04:00 98.0 82 18 131/68 (89) 95 12/11/19 00:00 98.0 93 18 125/67 (86) 95 12/10/19 21:00 Room Air 12/10/19 20:00 97.9 89 18 134/67 (89) 95 12/10/19 12:00 Intake and Output 12/10/19 12/11/19 19:00 07:00 Intake Total 135 ml Output Total 700 ml Balance -565 ml Intake Oral 60 ml IV Total 75 ml Output Urine Total 700 ml # Voids 1 # Bowel Movements 1 Laboratory Tests 12/11/19 06:15: White Blood Count 10.8, Red Blood Count 3.42L, Hemoglobin 10.5L, Hematocrit 30.3L, Mean Corpuscular Volume 89, Mean Corpuscular Hemoglobin 30.7, Mean Corpuscular Hemoglobin Concent 34.6, Red Cell Distribution Width 12.0, Platelet Count 200, Mean Platelet Volume 7.1, Neutrophils (%) (Auto) 79.7H, Lymphocytes ( %) (Auto) 12.8L, Monocytes (%) (Auto) 5.0, Eosinophils (%) (Auto) 1.8, Basophils (%) (Auto) 0.8, Sodium Level 144, Potassium Level 3.6, Chloride Level 111H, Carbon Dioxide Level 20L, Anion Gap 13, Blood Urea Nitrogen 11, Creatinine 1.2, Estimat Glomerular Filtration Rate 57.5, Glucose Level 120H, Calcium Level 8.6, Magnesium Level 2.2 Height (Feet): 5 Height (Inches): 6.00 Weight (Pounds): 145 General Appearance: alert EENT: normal ENT inspection Neck: supple Cardiovascular: normal rate Respiratory/Chest: decreased breath sounds Abdomen: normal bowel sounds, non tender, soft Extremities: non-tender Lauro Bran MD Dec 11, 2019 10:57
--- NOTE | 2019-12-11 11:24 | General Progress Note ---
Assessment/Plan Status: stable Assessment/Plan: Mr. Dubon is a 84 year old male with hx of HTN, DM2, presenting from SNF with decreased PO intake, and KELLEN. #Decreased PO intake #Failure to thrive #Dysphagia -s/p IVF -Seen by speech, diet advanced, but poor appetite -Will consider Megace -24 hour calorie count ordered -GI consulted: plan to repeat video swallow Tuesday, will likely need PEG this admission -Psychiatry following: Mirtazipine #Acute on chronic kidney disease #KELLEN - stable -likely diabetes mellitus and hypertension. -s/p IVF -Cr 1.5, likely new baseline -Nephrology following #Cough #Leukocytosis - resolved #Left lung PNA -Continue empiric abx (Ceftriaxone, azithromycin 12/03- ) -CXR + for possible consolidation left lung -Sputum Cx w/normal fabiola -flu panel neg. -Pulmonology consult appreciated. #Chronic dCHF #ICM EF 50%, h/o CABG #Elevated troponin #bradycardia #Afib -BNP elevated. trop leak. likely from renal failure. -home coreg held 2/2 bradycardia. -cont. lisinopril -ASA, statin -off OAC -cardiology following, consult appreciated #hypoMagnesemia -replace with IV Mag -check labs in AM #DM2 -Continue insulin sliding scale + long acting. -POCT glucose. #BPH -Continue flomax. #GERD -continue PPI Time spent on encounter: 35 mins, >50% on counseling, coordination of care. Subjective Date patient seen: Dec 11, 2019 Time patient seen: 08:00 ROS Limited/Unobtainable: Yes Constitutional: Denies: fever Cardiovascular: Denies: chest pain Respiratory: Denies: cough Gastrointestinal/Abdominal: Denies: abdominal pain Allergies: Coded Allergies: No Known Allergies (Unverified , 12/09/13) Subjective Follow up for KELLEN, poor oral intake, dysphagia, hypomagnesemia No acute events overnight. Diet advanced by ASSOCIATE SOFTWARE DEVELOPMENT ENGINEER but poor appetite, refused dinner last night and breakfast today Objective Last 24 Hour Vital Signs Date Time Temp Pulse Resp B/P (MAP) Pulse Ox O2 Delivery O2 Flow Rate FiO2 12/11/19 09:00 Room Air 12/11/19 08:00 97.8 74 18 107/59 (75) 93 12/11/19 04:00 98.0 82 18 131/68 (89) 95 12/11/19 00:00 98.0 93 18 125/67 (86) 95 12/10/19 21:00 Room Air 12/10/19 20:00 97.9 89 18 134/67 (89) 95 12/10/19 12:00 Intake and Output 12/10/19 12/11/19 19:00 07:00 Intake Total 135 ml Output Total 700 ml Balance -565 ml Intake Oral 60 ml IV Total 75 ml Output Urine Total 700 ml # Voids 1 # Bowel Movements 1 Laboratory Tests 12/11/19 06:15: White Blood Count 10.8, Red Blood Count 3.42L, Hemoglobin 10.5L, Hematocrit 30.3L, Mean Corpuscular Volume 89, Mean Corpuscular Hemoglobin 30.7, Mean Corpuscular Hemoglobin Concent 34.6, Red Cell Distribution Width 12.0, Platelet Count 200, Mean Platelet Volume 7.1, Neutrophils (%) (Auto) 79.7H, Lymphocytes ( %) (Auto) 12.8L, Monocytes (%) (Auto) 5.0, Eosinophils (%) (Auto) 1.8, Basophils (%) (Auto) 0.8, Sodium Level 144, Potassium Level 3.6, Chloride Level 111H, Carbon Dioxide Level 20L, Anion Gap 13, Blood Urea Nitrogen 11, Creatinine 1.2, Estimat Glomerular Filtration Rate 57.5, Glucose Level 120H, Calcium Level 8.6, Magnesium Level 2.2 Height (Feet): 5 Height (Inches): 6.00 Weight (Pounds): 145 General Appearance: no apparent distress, alert Neck: normal alignment Cardiovascular: normal rate, regular rhythm Respiratory/Chest: lungs clear, normal breath sounds, no respiratory distress Abdomen: non tender, soft Marcus Patel MD Dec 11, 2019 11:24
--- NOTE | 2019-12-11 11:40 | NUR ---
CASE MANAGEMENT:REVIEW SI;AC KIDNEY FAILURE. FTT. MALNUTRITION. DYSPHAGIA. 98.0 83 18 107/59 93% ON RA CL 111 CO2 20 IS;IVF D5W @ 75 ML/HR ASA PO QD PROTONIX PO QD ROCEPHIN IV QHS HEPARIN SUBQ Q12 HRS MED SURG STATUS PLAN OF CARE; CALORIE COUNT POSSIBLE PEG CONTINUE IV ABX DCP;FROM [facility]
--- NOTE | 2019-12-11 11:42 | NUR ---
MANAGER OPERATING NOTE FITO consulted the case w/ SHAWN Daija. Pt signed the POLST- full code in 2018. There will be no bioethics meeting for this case. Two doctors need to document the medical necessity. Signed: 12/11/19 at 1143 by JOEY PAYTON <Co-Signature Required>
--- NOTE | 2019-12-11 11:55 | NUR ---
*-* INSURANCE *-* UPDATED CLINICALS HAVE BEEN FAXED TO: TANISHA Odonnell # [phone]
--- NOTE | 2019-12-11 11:59 | Cardiac Electrophysiology PN ---
Assessment/Plan Assessment/Plan 1. Ischemic cardiomyopathy, EF improved to 50% in 08/2019 and high BNP. Off Coreg as was migdalia down to 30s in prior admission and now in 50s. Off lisinopril now 2. 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 Off Coreg. No CP. 3. Paroxysmal atrial fibrillation, remained in sinus rhythm with first-degree AV block when on tele. Off anticoagulation and was off even at the [facility] 4. Hyperlipidemia on Lipitor. 5. Urinary tract infection. 6. Hospital-acquired pneumonia. 7. FTT, PEG pending tomorrow per Dr Yina NERI RN Subjective Subjective No events on NMB.No CP or SOB. Rescheduled for PEG tomorrow by Dr Bran for failure to Thrive Objective Last 24 Hour Vital Signs Date Time Temp Pulse Resp B/P (MAP) Pulse Ox O2 Delivery O2 Flow Rate FiO2 12/11/19 09:00 Room Air 12/11/19 08:00 97.8 74 18 107/59 (75) 93 12/11/19 04:00 98.0 82 18 131/68 (89) 95 12/11/19 00:00 98.0 93 18 125/67 (86) 95 12/10/19 21:00 Room Air 12/10/19 20:00 97.9 89 18 134/67 (89) 95 12/10/19 12:00 Intake and Output 12/10/19 12/11/19 19:00 07:00 Intake Total 135 ml Output Total 700 ml Balance -565 ml Intake Oral 60 ml IV Total 75 ml Output Urine Total 700 ml # Voids 1 # Bowel Movements 1 Laboratory Tests Test 12/11/19 06:15 White Blood Count 10.8 K/UL (4.8-10.8) Red Blood Count 3.42 M/UL (4.70-6.10) L Hemoglobin 10.5 G/DL (14.2-18.0) L Hematocrit 30.3 % (42.0-52.0) L Mean Corpuscular Volume 89 FL (80-99) Mean Corpuscular Hemoglobin 30.7 PG (27.0-31.0) Mean Corpuscular Hemoglobin Concent 34.6 G/DL (32.0-36.0) Red Cell Distribution Width 12.0 % (11.6-14.8) Platelet Count 200 K/UL (150-450) Mean Platelet Volume 7.1 FL (6.5-10.1) Neutrophils (%) (Auto) 79.7 % (45.0-75.0) H Lymphocytes (%) (Auto) 12.8 % (20.0-45.0) L Monocytes (%) (Auto) 5.0 % (1.0-10.0) Eosinophils (%) (Auto) 1.8 % (0.0-3.0) Basophils (%) (Auto) 0.8 % (0.0-2.0) Sodium Level 144 MMOL/L (136-145) Potassium Level 3.6 MMOL/L (3.5-5.1) Chloride Level 111 MMOL/L (98-107) H Carbon Dioxide Level 20 MMOL/L (21-32) L Anion Gap 13 mmol/L (5-15) Blood Urea Nitrogen 11 mg/dL (7-18) Creatinine 1.2 MG/DL (0.55-1.30) Estimat Glomerular Filtration Rate 57.5 mL/min (>60) Glucose Level 120 MG/DL (74-106) H Calcium Level 8.6 MG/DL (8.5-10.1) Magnesium Level 2.2 MG/DL (1.8-2.4) Objective HEAD AND NECK: Shows mild JVD. LUNGS: Coarse rhonchi. CARDIOVASCULAR: Regular S1 and S2 with no gallop. Sternotomy scar is intact. ABDOMEN: Soft. EXTREMITIES: No pitting edema. Sixto Wiggins MD Dec 11, 2019 11:59
[2019-12-11 12:00] VITALS: BP 116/58
--- NOTE | 2019-12-11 12:04 | Pulmonology Progress Note ---
Assessment/Plan Assessment/Plan IMPRESSION: 1. Left lung field pneumonia. 2. Hypertension. 3. Dementia. 4. [facility] resident. 5. Diabetes mellitus. DISCUSSION: Continue antibiotics. Respiratory hygiene with breathing treatment Diabetes control DVT prophylaxis. I will follow. Subjective Interval Events: None new Constitutional: Reports: no symptoms HEENT: Repors: no symptoms Respiratory: Reports: no symptoms Cardiovascular: Reports: no symptoms Gastrointestinal/Abdominal: Reports: no symptoms Allergies: Coded Allergies: No Known Allergies (Unverified , 12/09/13) Objective Last 24 Hour Vital Signs Date Time Temp Pulse Resp B/P (MAP) Pulse Ox O2 Delivery O2 Flow Rate FiO2 12/11/19 09:00 Room Air 12/11/19 08:00 97.8 74 18 107/59 (75) 93 12/11/19 04:00 98.0 82 18 131/68 (89) 95 12/11/19 00:00 98.0 93 18 125/67 (86) 95 12/10/19 21:00 Room Air 12/10/19 20:00 97.9 89 18 134/67 (89) 95 Intake and Output 12/10/19 12/11/19 19:00 07:00 Intake Total 135 ml Output Total 700 ml Balance -565 ml Intake Oral 60 ml IV Total 75 ml Output Urine Total 700 ml # Voids 1 # Bowel Movements 1 General Appearance: no acute distress HEENT: normocephalic Respiratory/Chest: chest wall non-tender Cardiovascular: normal peripheral pulses Abdomen: normal bowel sounds Laboratory Tests 12/11/19 06:15: White Blood Count 10.8, Red Blood Count 3.42L, Hemoglobin 10.5L, Hematocrit 30.3L, Mean Corpuscular Volume 89, Mean Corpuscular Hemoglobin 30.7, Mean Corpuscular Hemoglobin Concent 34.6, Red Cell Distribution Width 12.0, Platelet Count 200, Mean Platelet Volume 7.1, Neutrophils (%) (Auto) 79.7H, Lymphocytes ( %) (Auto) 12.8L, Monocytes (%) (Auto) 5.0, Eosinophils (%) (Auto) 1.8, Basophils (%) (Auto) 0.8, Sodium Level 144, Potassium Level 3.6, Chloride Level 111H, Carbon Dioxide Level 20L, Anion Gap 13, Blood Urea Nitrogen 11, Creatinine 1.2, Estimat Glomerular Filtration Rate 57.5, Glucose Level 120H, Calcium Level 8.6, Magnesium Level 2.2 Current Medications Medications (Trade) Dose Ordered Sig/Breanna Route PRN Reason Start Time Stop Time Status Last Admin Dose Admin Acetaminophen (Tylenol) 650 mg Q6H PRN ORAL Mild Pain/Temp > 100.5 12/06/19 18:30 01/02/20 18:29 Aspirin (Ecotrin) 81 mg DAILY ORAL 12/07/19 09:00 01/03/20 08:59 12/11/19 09:16 Ceftriaxone Sodium 1 gm/ Sodium Chloride 55 ml @ 110 mls/hr QHS IVPB 12/06/19 21:00 12/12/19 20:59 12/10/19 20:42 Dextrose (Dextrose 50%) 25 ml Q30M PRN IV Hypoglycemia 12/06/19 18:30 01/02/20 18:29 12/07/19 16:59 Dextrose (Dextrose 50%) 50 ml Q30M PRN IV Hypoglycemia 12/06/19 18:30 01/02/20 18:29 Dextrose/Sodium Chloride 1,000 ml @ 75 mls/hr [id number] IV 12/08/19 08:30 01/07/20 08:29 12/10/19 14:38 Diphenhydramine HCl (Benadryl) 25 mg Q6H PRN ORAL Itching/Pruritis 12/06/19 19:00 01/02/20 18:59 Docusate Sodium (Colace) 100 mg TID ORAL 12/07/19 09:00 01/03/20 08:59 12/11/19 09:16 Escitalopram Oxalate (Lexapro) 10 mg DAILY ORAL 12/11/19 09:00 01/10/20 08:59 12/11/19 09:16 Heparin Sodium (Porcine) (Heparin 5000 units/ml) 5,000 units EVERY 12 HOURS SUBQ 12/06/19 21:00 01/03/20 08:59 12/11/19 09:16 Insulin Aspart (NovoLOG) BEFORE MEALS AND HS SUBQ 12/06/19 21:00 01/03/20 06:29 12/10/19 22:39 Insulin Detemir (Levemir) 8 units BEDTIME SUBQ 12/06/19 21:00 01/03/20 20:59 12/10/19 22:40 Mirtazapine (Remeron) 15 mg BEDTIME ORAL 12/06/19 21:00 01/03/20 20:59 12/10/19 22:37 Ondansetron HCl (Zofran) 4 mg Q6H PRN IVP Nausea & Vomiting 12/06/19 19:00 01/02/20 18:59 Pantoprazole (Protonix) 40 mg DAILY ORAL 12/07/19 09:00 01/03/20 08:59 12/11/19 09:16 Tamsulosin HCl (Flomax) 0.4 mg BID ORAL 12/07/19 09:00 01/03/20 08:59 12/11/19 09:16 Kenyon Garcia MD Dec 11, 2019 12:04
--- NOTE | 2019-12-11 12:10 | NUR ---
CHARGE NURSE NOTE: and notified that for EGD and PEG placement Doctors should put 2 notes on the pt chart (pt does not have family, consent is not available.)
--- NOTE | 2019-12-11 12:32 | Nephrology Progress Note ---
Assessment/Plan Problem List: (1) Renal failure (ARF), acute on chronic (2) Diabetes (3) HTN (hypertension) (4) Anemia Assessment Acute on chronic kidney disease likely diabetes mellitus and hypertension. Patient had echogenic kidneys on previous kidney ultrasound on August 2019 Hypertension Diabetes mellitus History of pleural effusion Ejection fraction of 50% in previous echocardiogram in August 2019 Mild Anemia BPH . Plan Swallowing improved but patient not eating Will give a trial of Megace Magnesium and phosphorus supplement intravenously Serum creatinine is stable Monitor renal parameters Keep the blood sugar and blood pressure and check Continue Flomax. Slow IV hydrate Check chest x-ray. Initiate anemia work-up. Continue per consultants. Subjective ROS Limited/Unobtainable: No Constitutional: Reports: malaise Objective Objective Last 24 Hour Vital Signs Date Time Temp Pulse Resp B/P (MAP) Pulse Ox O2 Delivery O2 Flow Rate FiO2 12/11/19 09:00 Room Air 12/11/19 08:00 97.8 74 18 107/59 (75) 93 12/11/19 04:00 98.0 82 18 131/68 (89) 95 12/11/19 00:00 98.0 93 18 125/67 (86) 95 12/10/19 21:00 Room Air 12/10/19 20:00 97.9 89 18 134/67 (89) 95 Intake and Output 12/10/19 12/11/19 19:00 07:00 Intake Total 135 ml Output Total 700 ml Balance -565 ml Intake Oral 60 ml IV Total 75 ml Output Urine Total 700 ml # Voids 1 # Bowel Movements 1 Laboratory Tests 12/11/19 06:15: White Blood Count 10.8, Red Blood Count 3.42L, Hemoglobin 10.5L, Hematocrit 30.3L, Mean Corpuscular Volume 89, Mean Corpuscular Hemoglobin 30.7, Mean Corpuscular Hemoglobin Concent 34.6, Red Cell Distribution Width 12.0, Platelet Count 200, Mean Platelet Volume 7.1, Neutrophils (%) (Auto) 79.7H, Lymphocytes ( %) (Auto) 12.8L, Monocytes (%) (Auto) 5.0, Eosinophils (%) (Auto) 1.8, Basophils (%) (Auto) 0.8, Sodium Level 144, Potassium Level 3.6, Chloride Level 111H, Carbon Dioxide Level 20L, Anion Gap 13, Blood Urea Nitrogen 11, Creatinine 1.2, Estimat Glomerular Filtration Rate 57.5, Glucose Level 120H, Calcium Level 8.6, Magnesium Level 2.2 Height (Feet): 5 Height (Inches): 6.00 Weight (Pounds): 145 General Appearance: no apparent distress Objective No major change Bill Redman MD Dec 11, 2019 12:32
[2019-12-11] MEDS: Megace 400mg/10ml Susp ORAL SCH ×2 (12:34→17:05)
[2019-12-11 16:00] VITALS: BP 120/78
--- NOTE | 2019-12-11 19:26 | NUR ---
HAND-OFF: Report given to Yasmany SCHILLING RN.
[2019-12-11 20:00] VITALS: BP 147/63
--- NOTE | 2019-12-11 20:28 | Psych Consult Progress Note ---
Psychiatry Progress Note Psychiatry Progress Note Medications Current Medications Medications (Trade) Dose Ordered Sig/Breanna Route PRN Reason Start Time Stop Time Status Last Admin Dose Admin Acetaminophen (Tylenol) 650 mg Q6H PRN ORAL Mild Pain/Temp > 100.5 12/06/19 18:30 01/02/20 18:29 Aspirin (Ecotrin) 81 mg DAILY ORAL 12/07/19 09:00 01/03/20 08:59 12/11/19 09:16 Ceftriaxone Sodium 1 gm/ Sodium Chloride 55 ml @ 110 mls/hr QHS IVPB 12/06/19 21:00 12/12/19 20:59 12/10/19 20:42 Dextrose (Dextrose 50%) 25 ml Q30M PRN IV Hypoglycemia 12/06/19 18:30 01/02/20 18:29 12/07/19 16:59 Dextrose (Dextrose 50%) 50 ml Q30M PRN IV Hypoglycemia 12/06/19 18:30 01/02/20 18:29 Dextrose/Sodium Chloride 1,000 ml @ 50 mls/hr Q20H IV 12/11/19 12:34 01/10/20 12:33 12/11/19 12:53 Diphenhydramine HCl (Benadryl) 25 mg Q6H PRN ORAL Itching/Pruritis 12/06/19 19:00 01/02/20 18:59 Docusate Sodium (Colace) 100 mg TID ORAL 12/07/19 09:00 01/03/20 08:59 12/11/19 17:04 Escitalopram Oxalate (Lexapro) 10 mg DAILY ORAL 12/11/19 09:00 01/10/20 08:59 12/11/19 09:16 Heparin Sodium (Porcine) (Heparin 5000 units/ml) 5,000 units EVERY 12 HOURS SUBQ 12/06/19 21:00 01/03/20 08:59 12/11/19 09:16 Insulin Aspart (NovoLOG) BEFORE MEALS AND HS SUBQ 12/06/19 21:00 01/03/20 06:29 12/11/19 16:36 Insulin Detemir (Levemir) 8 units BEDTIME SUBQ 12/06/19 21:00 01/03/20 20:59 12/10/19 22:40 Megestrol Acetate (Megace) 400 mg TWICE A DAY ORAL 12/11/19 12:34 01/10/20 12:33 12/11/19 17:05 Mirtazapine (Remeron) 15 mg BEDTIME ORAL 12/06/19 21:00 01/03/20 20:59 12/10/19 22:37 Ondansetron HCl (Zofran) 4 mg Q6H PRN IVP Nausea & Vomiting 12/06/19 19:00 01/02/20 18:59 Pantoprazole (Protonix) 40 mg DAILY ORAL 12/07/19 09:00 01/03/20 08:59 12/11/19 09:16 Tamsulosin HCl (Flomax) 0.4 mg BID ORAL 12/07/19 09:00 01/03/20 08:59 12/11/19 17:04 Neurological/Psychiatric: Reports: anxiety, depressed, emotional problems Allergies: Coded Allergies: No Known Allergies (Unverified , 12/09/13) Objective Data Height (Feet): 5 Height (Inches): 6.00 Weight (Pounds): 145 General Appearance: no apparent distress, alert, confused Additional Comments: alert, oriented times self, disoriented and has episodes of agitation. Mood is anxious. Affect is flat. Thought process is concrete. Thought content, no suicidal or homicidal ideation. ASSESSMENT: 1. Major depressive disorder. 2. Dementia. PLAN: 1. Lexapro 10 mg. 2. Remeron 15 mg at bedtime to increase his appetite and help him sleep. 3. Discussed with the nurse. Assessment/Plan Status: stable Ana Chao MD Dec 11, 2019 20:28
[2019-12-11] MEDS: Levemir Flexpen SUBQ SCH (20:45)
[2019-12-11] MEDS: cefTRIAXone 1 GM in NS 55 ML IVPB SCH (20:45)
[2019-12-12] VITALS: BP 121/63
[2019-12-12 04:00] VITALS: BP 102/59
[2019-12-12] MEDS: NovoLOG Insulin Flexpen SUBQ SCH ×4 (05:37→20:11)
--- NOTE | 2019-12-12 06:53 | NUR ---
HAND-OFF: Report given to DENAE Bunn.
--- NOTE | 2019-12-12 07:14 | Pulmonology Progress Note ---
Assessment/Plan Assessment/Plan IMPRESSION: 1. Left lung field pneumonia. 2. Hypertension. 3. Dementia. 4. jail resident. 5. Diabetes mellitus. DISCUSSION: Continue antibiotics. Await GT Respiratory hygiene with breathing treatment Diabetes control DVT prophylaxis. I will follow. Subjective Interval Events: For GT per GI Constitutional: Reports: no symptoms HEENT: Repors: no symptoms Respiratory: Reports: no symptoms Cardiovascular: Reports: no symptoms Gastrointestinal/Abdominal: Reports: no symptoms Genitourinary: Reports: no symptoms Allergies: Coded Allergies: No Known Allergies (Unverified , 12/09/13) Objective Last 24 Hour Vital Signs Date Time Temp Pulse Resp B/P (MAP) Pulse Ox O2 Delivery O2 Flow Rate FiO2 12/12/19 04:00 97.2 87 18 102/59 (73) 98 12/12/19 00:00 97.3 83 18 121/63 (82) 97 12/11/19 21:00 Room Air 12/11/19 20:00 97.7 67 18 147/63 (91) 94 12/11/19 16:00 98.0 87 14 120/78 (92) 95 12/11/19 12:00 97.3 84 16 116/58 (77) 94 12/11/19 09:00 Room Air 12/11/19 08:00 97.8 74 18 107/59 (75) 93 Intake and Output 12/11/19 12/12/19 19:00 07:00 Intake Total 675 ml 50 ml Output Total 935 ml Balance 675 ml -885 ml IV Total 675 ml 50 ml Output Urine Total 935 ml General Appearance: no acute distress HEENT: normocephalic Respiratory/Chest: chest wall non-tender Cardiovascular: normal peripheral pulses Abdomen: normal bowel sounds Current Medications Medications (Trade) Dose Ordered Sig/Breanna Route PRN Reason Start Time Stop Time Status Last Admin Dose Admin Acetaminophen (Tylenol) 650 mg Q6H PRN ORAL Mild Pain/Temp > 100.5 12/06/19 18:30 01/02/20 18:29 Aspirin (Ecotrin) 81 mg DAILY ORAL 12/07/19 09:00 01/03/20 08:59 12/11/19 09:16 Ceftriaxone Sodium 1 gm/ Sodium Chloride 55 ml @ 110 mls/hr QHS IVPB 12/06/19 21:00 12/12/19 20:59 12/11/19 20:45 Dextrose (Dextrose 50%) 25 ml Q30M PRN IV Hypoglycemia 12/06/19 18:30 01/02/20 18:29 12/07/19 16:59 Dextrose (Dextrose 50%) 50 ml Q30M PRN IV Hypoglycemia 12/06/19 18:30 01/02/20 18:29 Dextrose/Sodium Chloride 1,000 ml @ 50 mls/hr Q20H IV 12/11/19 12:34 01/10/20 12:33 12/11/19 12:53 Diphenhydramine HCl (Benadryl) 25 mg Q6H PRN ORAL Itching/Pruritis 12/06/19 19:00 01/02/20 18:59 Docusate Sodium (Colace) 100 mg TID ORAL 12/07/19 09:00 01/03/20 08:59 12/11/19 17:04 Escitalopram Oxalate (Lexapro) 10 mg DAILY ORAL 12/11/19 09:00 01/10/20 08:59 12/11/19 09:16 Heparin Sodium (Porcine) (Heparin 5000 units/ml) 5,000 units EVERY 12 HOURS SUBQ 12/06/19 21:00 01/03/20 08:59 12/11/19 09:16 Insulin Aspart (NovoLOG) BEFORE MEALS AND HS SUBQ 12/06/19 21:00 01/03/20 06:29 12/11/19 16:36 Insulin Detemir (Levemir) 8 units BEDTIME SUBQ 12/06/19 21:00 01/03/20 20:59 12/10/19 22:40 Megestrol Acetate (Megace) 400 mg TWICE A DAY ORAL 12/11/19 12:34 01/10/20 12:33 12/11/19 17:05 Mirtazapine (Remeron) 15 mg BEDTIME ORAL 12/06/19 21:00 01/03/20 20:59 12/11/19 20:41 Ondansetron HCl (Zofran) 4 mg Q6H PRN IVP Nausea & Vomiting 12/06/19 19:00 01/02/20 18:59 Pantoprazole (Protonix) 40 mg DAILY ORAL 12/07/19 09:00 01/03/20 08:59 12/11/19 09:16 Tamsulosin HCl (Flomax) 0.4 mg BID ORAL 12/07/19 09:00 01/03/20 08:59 12/11/19 17:04 Kenyon Garcia MD Dec 12, 2019 07:14
--- NOTE | 2019-12-12 07:43 | NUR ---
NURSE NOTES: PT RESTING IN BED. IN NO APPARENT DISTRESS AT THIS TIME. NPO FOR EGD AND PEG PLACEMENT AT THIS TIME. IN SEMI-BOLTON'S POSITION WITH HOB ELEVATED. BED IN LOWEST POSITION WITH BEDSIDE RAILS X3 RAISED. BED ALARM ON ZONE 1. WILL CONTINUE TO MONITOR.
[2019-12-12 08:00] VITALS: BP 126/82
--- NOTE | 2019-12-12 08:04 | Cardiac Electrophysiology PN ---
Assessment/Plan Assessment/Plan 1. Ischemic cardiomyopathy, EF improved to 50% in 08/2019 and high BNP. Off Coreg as was migdalia down to 30s in prior admission 2. 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 Off Coreg. No CP. 3. Paroxysmal atrial fibrillation, remained in sinus rhythm with first-degree AV block when on tele. Off anticoagulation and was off even at the [facility] 4. Hyperlipidemia on Lipitor. 5. Urinary tract infection. 6. Hospital-acquired pneumonia. 7. FTT, PEG pending today per Dr Yina NERI RN Subjective Subjective No events on NMB. NPO for PEG today by Dr. Bran for failure to thrive Objective Last 24 Hour Vital Signs Date Time Temp Pulse Resp B/P (MAP) Pulse Ox O2 Delivery O2 Flow Rate FiO2 12/12/19 04:00 97.2 87 18 102/59 (73) 98 12/12/19 00:00 97.3 83 18 121/63 (82) 97 12/11/19 21:00 Room Air 12/11/19 20:00 97.7 67 18 147/63 (91) 94 12/11/19 16:00 98.0 87 14 120/78 (92) 95 12/11/19 12:00 97.3 84 16 116/58 (77) 94 12/11/19 09:00 Room Air Intake and Output 12/11/19 12/12/19 19:00 07:00 Intake Total 675 ml 50 ml Output Total 935 ml Balance 675 ml -885 ml IV Total 675 ml 50 ml Output Urine Total 935 ml Objective HEAD AND NECK: Shows mild JVD. LUNGS: Coarse rhonchi. CARDIOVASCULAR: Regular S1 and S2 with no gallop. Sternotomy scar is intact. ABDOMEN: Soft. EXTREMITIES: No pitting edema. Sixto Wiggins MD Dec 12, 2019 08:04
[2019-12-12] MEDS: Aspirin EC 81mg tab ORAL SCH (09:18)
[2019-12-12] MEDS: Tamsulosin 0.4mg cap ORAL SCH ×2 (09:18→17:05)
[2019-12-12] MEDS: Docusate 100mg cap ORAL SCH ×3 (09:18→17:05)
[2019-12-12] MEDS: Megace 400mg/10ml Susp ORAL SCH ×2 (09:18→17:05)
[2019-12-12] MEDS: D5 1/2NS 1,000 ML IV SCH (09:19)
[2019-12-12] MEDS: Heparin 5000 units/ml inj SUBQ SCH ×2 (09:34→20:11)
--- NOTE | 2019-12-12 09:40 | NUR ---
RADIOLOGY DEPT., CHEST X-RAY DONE.-P.DYE
--- NOTE | 2019-12-12 10:07 | Diagnostic Imaging Report ---
Indication: Cough, shortness of breath Technique: One view of the chest Comparison: 12/04/2019 Findings: 4 calcifications on the right are again demonstrated. Pleural thickening versus fluid is seen again on the left, appears similar in extent to the previous study. Left basilar consolidation appears similar to the prior exam. Impression: Left basilar pleural fluid and infiltrate, unchanged from previous study of 12/04/2019. Similar to earlier exam suggests a significant chronic component. 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
--- NOTE | 2019-12-12 10:46 | NUR ---
NURSE NOTES: PER DR ALEXANDRE, PT'S PEG PLACEMENT CANCELLED TODAY TO MONITOR CONGESTION. WILL MOST LIKELY RESUME TOMORROW. PER , OK TO RESUME DIET AND PLACE PT NPO AFTER MIDNIGHT.
--- NOTE | 2019-12-12 10:50 | GI Progress Note ---
Assessment/Plan Problems: (1) Encounter for PEG (percutaneous endoscopic gastrostomy) ICD Codes: Z43.1 - Encounter for attention to gastrostomy SNOMED: 766548763, 482024906 (2) Severe malnutrition ICD Codes: E43 - Unspecified severe protein-calorie malnutrition SNOMED: 40731725 (3) Dehydration ICD Codes: E86.0 - Dehydration SNOMED: 26453800 (4) Anemia ICD Codes: D64.9 - Anemia, unspecified SNOMED: 367180711 Status: unchanged Status Narrative Discussed with Dr. Bran. Assessment/Plan (1) Encounter for PEG (percutaneous endoscopic gastrostomy) (2) Severe malnutrition (3) Dehydration (4) Anemia Plan for PEG tomorrow. bioethics reviewed >> SHWETHA cespedes 2 MD consent. will follow with additional recommendations post procedure The patient was seen and examined at bedside and all new and available data was reviewed in the patients chart. I agree with the above findings, impression and plan. (Patient seen earlier today. Signature stamp does not reflect patient encounter time.). - Lauro Bran MD Subjective Subjective limited Objective Last 24 Hour Vital Signs Date Time Temp Pulse Resp B/P (MAP) Pulse Ox O2 Delivery O2 Flow Rate FiO2 12/12/19 08:00 98.7 106 16 126/82 (97) 95 12/12/19 04:00 97.2 87 18 102/59 (73) 98 12/12/19 00:00 97.3 83 18 121/63 (82) 97 12/11/19 21:00 Room Air 12/11/19 20:00 97.7 67 18 147/63 (91) 94 12/11/19 16:00 98.0 87 14 120/78 (92) 95 12/11/19 12:00 97.3 84 16 116/58 (77) 94 Intake and Output 12/11/19 12/12/19 19:00 07:00 Intake Total 675 ml 50 ml Output Total 935 ml Balance 675 ml -885 ml IV Total 675 ml 50 ml Output Urine Total 935 ml Height (Feet): 5 Height (Inches): 5.00 Weight (Pounds): 141 General Appearance: no apparent distress Cardiovascular: normal rate Respiratory/Chest: normal breath sounds, no respiratory distress Abdominal Exam: normal bowel sounds, non tender, soft Extremities: non-tender Katrin Wolf NP Dec 12, 2019 10:50
[2019-12-12 12:00] VITALS: BP 103/51
--- NOTE | 2019-12-12 12:03 | NUR ---
RD ASSESSMENT & RECOMMENDATIONS SEE CARE ACTIVITY FOR COMPLETE ASSESSMENT DAILY ESTIMATED NEEDS: Needs based on DM/ 66kg 25-30 kcals/kg 6237-5334 total kcals 1-1.3 g protein/kg 66-86 g total protein 25-30 mL/kg 3117-9463 total fluid mLs NUTRITION DIAGNOSIS: Swallowing difficulty R/T dysphagia as evidenced by B[facility] PULLER recommends puree texture, w/ pending PEG placement. CURRENT DIET:Cardiac, CCHO med puree NTL PO DIET RECOMMENDATIONS: IF SAFE FOR ORAL DIET -> CCHO MED + LOW NA / texture per BONE [facility] PULLER ENTERAL NUTRITION RECOMMENDATIONS: Glucerna 1.2 @ 60ml/hr x 24 hrs to provide 1440ml, 1728kcal, 86g prot, 1159ml free water * W/ GI access, initiate Glucerna 1.2 @ 20ml/hr x 6 hrs * Advance 10ml q 4-6 hrs as tolerated to goal rate * HOB over 30 degrees * H20 flush of 150ml q 6 hrs ADDITIONAL RECOMMENDATIONS: * Calibrated bedscale wt for accurate CBW * Monitor lytes, replete as needed * Monitor BGs closely w/ D5, need to adjust insulin * Monitor readiness for oral diet * TF recs as above if part of POC/ Bioethics pending .
--- NOTE | 2019-12-12 12:11 | Nephrology Progress Note ---
Assessment/Plan Problem List: (1) Renal failure (ARF), acute on chronic (2) Diabetes (3) HTN (hypertension) (4) Anemia Assessment Acute on chronic kidney disease likely diabetes mellitus and hypertension. Patient had echogenic kidneys on previous kidney ultrasound on August 2019 Hypertension Diabetes mellitus History of pleural effusion Ejection fraction of 50% in previous echocardiogram in August 2019 Mild Anemia BPH . Plan Swallowing improved but patient not eating Will give a trial of Megace GT insertion is being entertained Magnesium and phosphorus supplement intravenously Serum creatinine is stable Monitor renal parameters Keep the blood sugar and blood pressure and check Continue Flomax. Slow IV hydrate Check chest x-ray. Initiate anemia work-up. Continue per consultants. Subjective ROS Limited/Unobtainable: No Constitutional: Reports: malaise, weakness Objective Objective Last 24 Hour Vital Signs Date Time Temp Pulse Resp B/P (MAP) Pulse Ox O2 Delivery O2 Flow Rate FiO2 12/12/19 09:00 Room Air 12/12/19 08:00 98.7 106 16 126/82 (97) 95 12/12/19 04:00 97.2 87 18 102/59 (73) 98 12/12/19 00:00 97.3 83 18 121/63 (82) 97 12/11/19 21:00 Room Air 12/11/19 20:00 97.7 67 18 147/63 (91) 94 12/11/19 16:00 98.0 87 14 120/78 (92) 95 Intake and Output 12/11/19 12/12/19 19:00 07:00 Intake Total 675 ml 50 ml Output Total 935 ml Balance 675 ml -885 ml IV Total 675 ml 50 ml Output Urine Total 935 ml Height (Feet): 5 Height (Inches): 5.00 Weight (Pounds): 141 General Appearance: no apparent distress Objective No major change Bill Redman MD Dec 12, 2019 12:11
--- NOTE | 2019-12-12 13:24 | NUR ---
CASE MANAGEMENT:REVIEW SI;PNA. FTT. DYSPHAGIA. AC/CHR KIDNEY INJURY. TROPONIN LEAK. 98.7 106 16 102/89 95% ON RA NO LABS AVAILABLE IS;IVF D5W @ 50 ML/HR MEGACE PO BID PROTONIX PO QD ROCEPHIN IV QHS PO QD MED SURG STATUS PLAN OF CARE; POSSIBLE PEG IVF DCP;FROM [facility]
--- NOTE | 2019-12-12 14:05 | NUR ---
ST NOTES: SWALLOW STATUS: PATIENT NPO AFTER MIDNIGHT. 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 GOALS NOT MET FOR INTAKE (REFUSES SOME MEALS AND 50%) PLAN: CONTINUE WITH CURRENT DIET WITH POSTED PRECAUTION MODIFIED BARIUM SWALLOW STUDY IP OR OP IF DC (UNABLE TO COMPLETE TO DATE DUE TO SCHEDULE CONFLICTS). UPDATED CORRECT DIET TYPE PER RD RECOMMENDATIONS (CCHO-MED AND LOW NA)
--- NOTE | 2019-12-12 14:20 | Diagnostic Imaging Report ---
Clinical Indication: Cough, shortness of breath Technique: Spiral acquisitions obtained through the chest. No IV contrast utilized, per referring physician request. Multiplanar reconstructions generated. Total dose length product 12/12/2019 mGycm. CTDIvol(s) 5 mGy. Dose reduction achieved using automated exposure control Comparison: 08/05/2019 Findings: Calcified pleural plaques are again demonstrated, predominantly on the right. There are also a few posteriorly on the left. Area of scarring in the anterolateral periphery of the right upper lobe has progressed slightly inferiorly. A few small noncalcified nodules are seen in the inferior right upper lobe. These appear slightly more numerous than on the prior study. There are also some calcified nodules in the right lung. Interstitial opacities in the posterior inferior right lower lobe are unchanged. Scarring in the inferior left upper lobe appears similar to the prior study. A large area of volume loss is seen involving the inferolateral left lower lobe. This appears unchanged and is presumably chronic in nature, likely an area of cicatrization. Small loculated thick-walled pleural effusion in the left pleural space is again demonstrated appears unchanged. The heart is borderline enlarged. No pericardial effusion. There are fairly extensive coronary artery calcifications. 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 The included thyroid is unremarkable. No axillary or chest wall mass or adenopathy. No mediastinal or hilar mass or adenopathy. The proximal esophagus is mildly dilated, as previously. The bones are unremarkable except for mild degenerative proliferative changes of the thoracic spine. There is evidence of prior median sternotomy. The included upper abdominal anatomy demonstrates prominent peripancreatic lymph nodes, also evident previously. The pancreas is somewhat atrophic. Previously reported left renal cyst is not included in the current imaging volume Impression: Extensive chronic and presumably postinflammatory changes, as described. These include loculated left pleural effusion, cicatrization of a large portion of the left lower lobe, calcified bilateral pleural plaques, right basilar interstitial opacities, right lung calcified nodules and areas of scarring bilaterally. Scarring has progressed in the inferior right upper lobe Noncalcified right lung nodules appear slightly more numerous than on the previous exam. 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
[2019-12-12] MEDS ORDERED: D5 1/2NS 1000ml IV ONE (15:10)
--- NOTE | 2019-12-12 15:14 | General Progress Note ---
Assessment/Plan Status: unchanged Assessment/Plan: Mr. Dubon is a 84 year old male with hx of HTN, DM2, presenting from SNF with decreased PO intake, and KELLEN. #Decreased PO intake #Failure to thrive #Dysphagia -s/p IVF -Seen by speech, diet advanced, but poor appetite -Will consider Megace -24 hour calorie count ordered -PEG postponed due to cough - ok to be done tomorrow now that imaging is without acute changes -Psychiatry following: Mirtazipine #Acute on chronic kidney disease #KELLEN - stable -likely diabetes mellitus and hypertension. -s/p IVF -Cr 1.5, likely new baseline -Nephrology following #Cough #Leukocytosis - resolved #Left lung PNA -Continue empiric abx (Ceftriaxone, azithromycin 12/03- ) -CXR + for possible consolidation left lung -Sputum Cx w/normal fabiola -flu panel neg. -Pulmonology consult appreciated. -CT Chest negative on 12/11 #Chronic dCHF #ICM EF 50%, h/o CABG #Elevated troponin #bradycardia #Afib -BNP elevated. trop leak. likely from renal failure. -home coreg held 2/2 bradycardia. -cont. lisinopril -ASA, statin -off OAC -cardiology following, consult appreciated #hypoMagnesemia -replace with IV Mag -check labs in AM #DM2 -Continue insulin sliding scale + long acting. -POCT glucose. #BPH -Continue flomax. #GERD -continue PPI Time spent on encounter: 35 mins, >50% on counseling, coordination of care. Subjective Date patient seen: Dec 12, 2019 Time patient seen: 07:22 ROS Limited/Unobtainable: Yes Allergies: Coded Allergies: No Known Allergies (Unverified , 12/09/13) Subjective Follow up for KELLEN, poor oral intake, dysphagia, hypomagnesemia Increased cough this morning, PEG postponed Objective Last 24 Hour Vital Signs Date Time Temp Pulse Resp B/P (MAP) Pulse Ox O2 Delivery O2 Flow Rate FiO2 12/12/19 12:00 96.6 53 16 103/51 (68) 97 12/12/19 09:00 Room Air 12/12/19 08:00 98.7 106 16 126/82 (97) 95 12/12/19 04:00 97.2 87 18 102/59 (73) 98 12/12/19 00:00 97.3 83 18 121/63 (82) 97 12/11/19 21:00 Room Air 12/11/19 20:00 97.7 67 18 147/63 (91) 94 12/11/19 16:00 98.0 87 14 120/78 (92) 95 Intake and Output 12/11/19 12/12/19 19:00 07:00 Intake Total 675 ml 50 ml Output Total 935 ml Balance 675 ml -885 ml IV Total 675 ml 50 ml Output Urine Total 935 ml Height (Feet): 5 Height (Inches): 5.00 Weight (Pounds): 141 General Appearance: no apparent distress, alert, confused Neck: normal alignment, supple Cardiovascular: normal rate, regular rhythm Respiratory/Chest: lungs clear, normal breath sounds, no respiratory distress Marcus Patel MD Dec 12, 2019 15:14
[2019-12-12 16:00] VITALS: BP 122/65
--- NOTE | 2019-12-12 16:28 | NUR ---
*-* INSURANCE *-* UPDATED CLINICALS HAVE BEEN FAXED TO: TANISHA Odonnell # [phone]
--- NOTE | 2019-12-12 19:17 | NUR ---
HAND-OFF: Report given to Yasmany SCHILLING RN.
--- NOTE | 2019-12-12 19:28 | NUR ---
NURSE NOTES: Patient asleep in bed, no signs of pain. Safety measures will continue. Will continue plan of care.
[2019-12-12 20:00] VITALS: BP 108/54
[2019-12-12] MEDS: Levemir Flexpen SUBQ SCH (20:09)
--- NOTE | 2019-12-12 23:58 | Psych Consult Progress Note ---
Psychiatry Progress Note Psychiatry Progress Note Medications Current Medications Medications (Trade) Dose Ordered Sig/Breanna Route PRN Reason Start Time Stop Time Status Last Admin Dose Admin Acetaminophen (Tylenol) 650 mg Q6H PRN ORAL Mild Pain/Temp > 100.5 12/06/19 18:30 01/02/20 18:29 Aspirin (Ecotrin) 81 mg DAILY ORAL 12/07/19 09:00 01/03/20 08:59 12/12/19 09:18 Dextrose (Dextrose 50%) 25 ml Q30M PRN IV Hypoglycemia 12/06/19 18:30 01/02/20 18:29 12/07/19 16:59 Dextrose (Dextrose 50%) 50 ml Q30M PRN IV Hypoglycemia 12/06/19 18:30 01/02/20 18:29 Dextrose/Sodium Chloride 1,000 ml @ 50 mls/hr Q20H IV 12/11/19 12:34 01/10/20 12:33 12/12/19 09:19 Diphenhydramine HCl (Benadryl) 25 mg Q6H PRN ORAL Itching/Pruritis 12/06/19 19:00 01/02/20 18:59 Docusate Sodium (Colace) 100 mg TID ORAL 12/07/19 09:00 01/03/20 08:59 12/12/19 17:05 Escitalopram Oxalate (Lexapro) 10 mg DAILY ORAL 12/11/19 09:00 01/10/20 08:59 12/12/19 09:18 Heparin Sodium (Porcine) (Heparin 5000 units/ml) 5,000 units EVERY 12 HOURS SUBQ 12/06/19 21:00 01/03/20 08:59 12/12/19 09:34 Insulin Aspart (NovoLOG) BEFORE MEALS AND HS SUBQ 12/06/19 21:00 01/03/20 06:29 12/12/19 20:11 Insulin Detemir (Levemir) 8 units BEDTIME SUBQ 12/06/19 21:00 01/03/20 20:59 12/12/19 20:09 Megestrol Acetate (Megace) 400 mg TWICE A DAY ORAL 12/11/19 12:34 01/10/20 12:33 12/12/19 17:05 Mirtazapine (Remeron) 15 mg BEDTIME ORAL 12/06/19 21:00 01/03/20 20:59 12/12/19 20:01 Ondansetron HCl (Zofran) 4 mg Q6H PRN IVP Nausea & Vomiting 12/06/19 19:00 01/02/20 18:59 Pantoprazole (Protonix) 40 mg DAILY ORAL 12/07/19 09:00 01/03/20 08:59 12/12/19 09:18 Tamsulosin HCl (Flomax) 0.4 mg BID ORAL 12/07/19 09:00 01/03/20 08:59 12/12/19 17:05 Neurological/Psychiatric: Reports: anxiety, depressed, emotional problems Allergies: Coded Allergies: No Known Allergies (Unverified , 12/09/13) Objective Data Height (Feet): 5 Height (Inches): 5.00 Weight (Pounds): 141 General Appearance: no apparent distress, alert, confused Behavior Mannerisms: good eye contact Mental Status Exam - Affect: blunted Additional Comments: alert, oriented times self, disoriented and has episodes of agitation. Mood is anxious. Affect is flat. Thought process is concrete. Thought content, no suicidal or homicidal ideation. ASSESSMENT: 1. Major depressive disorder. 2. Dementia. PLAN: 1. Lexapro 10 mg. 2. Remeron 15 mg at bedtime to increase his appetite and help him sleep. 3. Discussed with the nurse. Assessment/Plan Status: Ana Heart MD Dec 12, 2019 23:58
[2019-12-13] VITALS (11 sets, daily range): BP systolic 91–139; BP diastolic 50–80
[2019-12-13] MEDS: D5 1/2NS 1,000 ML IV SCH (05:16)
[2019-12-13] MEDS: NovoLOG Insulin Flexpen SUBQ SCH ×4 (05:20→21:05)
[2019-12-13 05:37] LABS: ANION GAP 11 mmol/L (5-15); BLOOD UREA NITROGEN 11 mg/dL (7-18); CALCIUM 8.9 MG/DL (8.5-10.1); CARBON DIOXIDE 22 MMOL/L (21-32); CHLORIDE 111 MMOL/L (98-107); CREATININE 1.4 MG/DL (0.55-1.30); SODIUM 144 MMOL/L (136-145)
[2019-12-13 05:39] LABS: BASOPHILS % (AUTO) 0.6 % (0.0-2.0); EOSINOPHILS % (AUTO) 1.8 % (0.0-3.0); HEMATOCRIT 29.7 % (42.0-52.0); HEMOGLOBIN 10.1 G/DL (14.2-18.0); LYMPHOCYTES % (AUTO) 12.3 % (20.0-45.0); MEAN CORPUSCULAR VOLUME 90 FL (80-99); NEUTROPHILS % (AUTO) 81.3 % (45.0-75.0); PLATELET COUNT 173 K/UL (150-450); RED CELL DISTRIBUTION WIDTH 12.5 % (11.6-14.8); WHITE BLOOD COUNT 11.1 K/UL (4.8-10.8)
--- NOTE | 2019-12-13 05:43 | NUR ---
HAND-OFF: Report given to DENAE Caro. Kept pt on NPO post MN.
--- NOTE | 2019-12-13 06:59 | NUR ---
HAND-OFF: Report given to Oni PHILIPPE.
--- NOTE | 2019-12-13 07:50 | NUR ---
NURSE NOTES: PT RESTING IN BED. IN NO APPARENT DISTRESS AT THIS TIME. PT SCHEDULED FOR EGD AND PEG PLACEMENT TODAY. PT IN SEMI-BOLTON'S POSITION WITH HOB ELEVATED. BED IN LOWEST POSITION WITH BEDSIDE RAILS X3 RAISED. BED ALARM ON ZONE 1. WILL CONTINUE TO MONITOR.
[2019-12-13] MEDS: Docusate 100mg cap ORAL SCH ×3 (08:55→17:04)
[2019-12-13] MEDS: Tamsulosin 0.4mg cap ORAL SCH ×2 (08:55→17:04)
[2019-12-13] MEDS: Aspirin EC 81mg tab ORAL SCH (08:55)
[2019-12-13] MEDS: Megace 400mg/10ml Susp ORAL SCH (08:55)
[2019-12-13] MEDS: Heparin 5000 units/ml inj SUBQ SCH ×2 (08:55→21:05)
--- NOTE | 2019-12-13 09:08 | General Progress Note ---
Assessment/Plan Status: unchanged Assessment/Plan: Mr. Dubon is a 84 year old male with hx of HTN, DM2, presenting from SNF with decreased PO intake, and KELLEN. #Decreased PO intake #Failure to thrive #Dysphagia -s/p IVF -Seen by speech, diet advanced, but poor appetite -PEG placement today -Psychiatry following: Mirtazipine #Acute on chronic kidney disease #KELLEN - stable -likely diabetes mellitus and hypertension. -s/p IVF -Nephrology following #Cough #Leukocytosis - resolved #Left lung PNA -Continue empiric abx (Ceftriaxone, azithromycin 12/03- ) -CXR + for possible consolidation left lung -Sputum Cx w/normal fabiola -flu panel neg. -Pulmonology consult appreciated. -CT Chest negative on 12/11 #Chronic dCHF #ICM EF 50%, h/o CABG #Elevated troponin #bradycardia #Afib -BNP elevated. trop leak. likely from renal failure. -home coreg held 2/2 bradycardia. -cont. lisinopril -ASA, statin -off OAC -cardiology following, consult appreciated #hypoMagnesemia -replace with IV Mag -check labs in AM #DM2 -Continue insulin sliding scale + long acting. -POCT glucose. #BPH -Continue flomax. #GERD -continue PPI Time spent on encounter: 35 mins, >50% on counseling, coordination of care. Subjective Date patient seen: Dec 13, 2019 Time patient seen: 07:15 ROS Limited/Unobtainable: Yes Constitutional: Denies: fever Cardiovascular: Denies: chest pain Respiratory: Denies: cough Allergies: Coded Allergies: No Known Allergies (Unverified , 12/09/13) Subjective Follow up for KELELN, poor oral intake, dysphagia, hypomagnesemia Cough improved today, imaging yesterday negative for acute process. Going for PEG today Objective Last 24 Hour Vital Signs Date Time Temp Pulse Resp B/P (MAP) Pulse Ox O2 Delivery O2 Flow Rate FiO2 12/13/19 08:06 97.9 66 18 139/76 (97) 95 12/13/19 04:00 98.2 90 17 124/60 (81) 97 12/13/19 00:00 98.1 88 16 127/65 (85) 97 12/12/19 21:00 Room Air 12/12/19 20:00 98.2 92 18 108/54 (72) 98 12/12/19 16:00 98.8 61 18 122/65 (84) 99 12/12/19 12:00 96.6 53 16 103/51 (68) 97 Intake and Output 12/12/19 12/13/19 18:59 06:59 Intake Total 1010 ml Output Total 700 ml Balance 1010 ml -700 ml Intake Oral 360 ml IV Total 650 ml Output Urine Total 700 ml # Voids 1 Laboratory Tests 12/13/19 05:18: White Blood Count 11.1H, Red Blood Count 3.30L, Hemoglobin 10.1L, Hematocrit 29.7L, Mean Corpuscular Volume 90, Mean Corpuscular Hemoglobin 30.5, Mean Corpuscular Hemoglobin Concent 33.9, Red Cell Distribution Width 12.5, Platelet Count 173, Mean Platelet Volume 6.0L, Neutrophils (%) (Auto) 81.3H, Lymphocytes (%) (Auto) 12.3L, Monocytes (%) (Auto) 4.0, Eosinophils (%) (Auto) 1.8, Basophils (%) (Auto) 0.6, Prothrombin Time 10.9, Prothromb Time International Ratio 1.0, Activated Partial Thromboplast Time 26, Sodium Level 144, Potassium Level 4.0, Chloride Level 111H, Carbon Dioxide Level 22, Anion Gap 11, Blood Urea Nitrogen 11, Creatinine 1.4H, Estimat Glomerular Filtration Rate 48.2, Glucose Level 182H, Calcium Level 8.9 Height (Feet): 5 Height (Inches): 5.00 Weight (Pounds): 141 General Appearance: no apparent distress, alert Neck: normal alignment, supple Cardiovascular: normal rate, regular rhythm Respiratory/Chest: lungs clear, normal breath sounds, no respiratory distress, no accessory muscle use Marcus Patel MD Dec 13, 2019 09:08
[2019-12-13] MEDS ORDERED: fentaNYL 100 mcg/2 mL IV PRN (10:00)
[2019-12-13] MEDS ORDERED: DiphenhydrAMINE 50mg/ml Inj IVP PRN (10:00)
[2019-12-13] MEDS ORDERED: Midazolam 2mg/2ml Inj IVP PRN (10:00)
[2019-12-13] MEDS ORDERED: Atropine Inj 1mg/10ml Syr IV PRN (10:00)
--- NOTE | 2019-12-13 10:11 | Anethesia Preoperative Eval ---
Anesthesia Pre-op PMH/ROS General Date of Evaluation: Dec 13, 2019 Time of Evaluation: 09:56 Anesthesiologist: radha ASA Score: ASA 4 Mallampati Score Class I : Soft palate, uvula, fauces, pillars visible Class II: Soft palate, uvula, fauces visible Class III: Soft palate, base of uvula visible Class IV: Only hard plate visible Mallampati Classification: Class II Surgeon: minnie Diagnosis: dysphagia, severe malnutrition Surgical Procedure: peg Anesthesia History: none Social History: smoking - former smoker Family History: no anesthesia problems Allergies: Coded Allergies: No Known Allergies (Unverified , 12/09/13) Medications: see eMAR Patient NPO?: Yes Past Medical History Cardiovascular: Reports: HTN, CAD, arrhythmia, other - atherosclerotic heart disease, heart failure, hypercholesterolemia Pulmonary: Reports: COPD, other - bronchitis, respiratory insufficiency Gastrointestinal/Genitourinary: Reports: other - acute renal failure, severe malnutrition, pancreatitis, metabolic acidosis Neurologic/Psychiatric: Reports: dementia, other - generalized weakness Endocrine: Reports: DM Hematology/Immune: Reports: anemia, other - sepsis, Musculoskeletal/Integumentary: Reports: other - gout PSxH Narrative: cabg, Anesthesia Pre-op Phys. Exam Physician Exam Last Vital Signs Date Time Temp Pulse Resp B/P (MAP) Pulse Ox O2 Delivery O2 Flow Rate FiO2 12/13/19 09:00 Room Air 12/13/19 08:06 97.9 66 18 139/76 (97) 95 12/09/19 07:33 21 Neurologic: CN 2-12 intact Cardiovascular: other - irreg irreg Respiratory: CTA Gastrointestinal: S/NT/ND Airway Exam Mallampati Score: Class II MO: limited Neck: flexible TMD: 2fb ROM: limited Anesthesia Pre-op A/P Labs Hematology Test 12/13/19 05:18 White Blood Count 11.1 K/UL (4.8-10.8) H Red Blood Count 3.30 M/UL (4.70-6.10) L Hemoglobin 10.1 G/DL (14.2-18.0) L Hematocrit 29.7 % (42.0-52.0) L Mean Corpuscular Volume 90 FL (80-99) Mean Corpuscular Hemoglobin 30.5 PG (27.0-31.0) Mean Corpuscular Hemoglobin Concent 33.9 G/DL (32.0-36.0) Red Cell Distribution Width 12.5 % (11.6-14.8) Platelet Count 173 K/UL (150-450) Mean Platelet Volume 6.0 FL (6.5-10.1) L Neutrophils (%) (Auto) 81.3 % (45.0-75.0) H Lymphocytes (%) (Auto) 12.3 % (20.0-45.0) L Monocytes (%) (Auto) 4.0 % (1.0-10.0) Eosinophils (%) (Auto) 1.8 % (0.0-3.0) Basophils (%) (Auto) 0.6 % (0.0-2.0) Coagulation Test 12/13/19 05:18 Prothrombin Time 10.9 SEC (9.30-11.50) Prothromb Time International Ratio 1.0 (0.9-1.1) Activated Partial Thromboplast Time 26 SEC (23-33) Chemistry Test 12/13/19 05:18 Sodium Level 144 MMOL/L (136-145) Potassium Level 4.0 MMOL/L (3.5-5.1) Chloride Level 111 MMOL/L (98-107) H Carbon Dioxide Level 22 MMOL/L (21-32) Anion Gap 11 mmol/L (5-15) Blood Urea Nitrogen 11 mg/dL (7-18) Creatinine 1.4 MG/DL (0.55-1.30) H Estimat Glomerular Filtration Rate 48.2 mL/min (>60) Glucose Level 182 MG/DL (74-106) H Calcium Level 8.9 MG/DL (8.5-10.1) Risk Assessment & Plan Assessment: asa4 Plan: mac Status Change Before Surgery: No Pre-Antibiotics Drug: cefoxitin 1gm Given Within 1 Hr of Incision: Yes Time Given: 12:10 Leatha Rosado MD Dec 13, 2019 10:11
--- NOTE | 2019-12-13 11:00 | Pulmonology Progress Note ---
Assessment/Plan Assessment/Plan IMPRESSION: 1. Left lung field pneumonia. 2. Hypertension. 3. Dementia. 4. retirement resident. 5. Diabetes mellitus. DISCUSSION: Continue antibiotics. Await GT Respiratory hygiene with breathing treatment Diabetes control DVT prophylaxis. I will follow. Subjective Interval Events: None new Constitutional: Reports: no symptoms HEENT: Repors: no symptoms Respiratory: Reports: no symptoms Cardiovascular: Reports: no symptoms Allergies: Coded Allergies: No Known Allergies (Unverified , 12/09/13) Objective Last 24 Hour Vital Signs Date Time Temp Pulse Resp B/P (MAP) Pulse Ox O2 Delivery O2 Flow Rate FiO2 12/13/19 09:00 Room Air 12/13/19 08:06 97.9 66 18 139/76 (97) 95 12/13/19 04:00 98.2 90 17 124/60 (81) 97 12/13/19 00:00 98.1 88 16 127/65 (85) 97 12/12/19 21:00 Room Air 12/12/19 20:00 98.2 92 18 108/54 (72) 98 12/12/19 16:00 98.8 61 18 122/65 (84) 99 12/12/19 12:00 96.6 53 16 103/51 (68) 97 Intake and Output 12/12/19 12/13/19 19:00 07:00 Intake Total 960 ml 50 ml Output Total 700 ml Balance 960 ml -650 ml Intake Oral 360 ml IV Total 600 ml 50 ml Output Urine Total 700 ml # Voids 1 General Appearance: no acute distress HEENT: normocephalic Respiratory/Chest: chest wall non-tender, lungs clear Cardiovascular: normal peripheral pulses Abdomen: normal bowel sounds Laboratory Tests 12/13/19 05:18: White Blood Count 11.1H, Red Blood Count 3.30L, Hemoglobin 10.1L, Hematocrit 29.7L, Mean Corpuscular Volume 90, Mean Corpuscular Hemoglobin 30.5, Mean Corpuscular Hemoglobin Concent 33.9, Red Cell Distribution Width 12.5, Platelet Count 173, Mean Platelet Volume 6.0L, Neutrophils (%) (Auto) 81.3H, Lymphocytes (%) (Auto) 12.3L, Monocytes (%) (Auto) 4.0, Eosinophils (%) (Auto) 1.8, Basophils (%) (Auto) 0.6, Prothrombin Time 10.9, Prothromb Time International Ratio 1.0, Activated Partial Thromboplast Time 26, Sodium Level 144, Potassium Level 4.0, Chloride Level 111H, Carbon Dioxide Level 22, Anion Gap 11, Blood Urea Nitrogen 11, Creatinine 1.4H, Estimat Glomerular Filtration Rate 48.2, Glucose Level 182H, Calcium Level 8.9 Current Medications Medications (Trade) Dose Ordered Sig/Breanna Route PRN Reason Start Time Stop Time Status Last Admin Dose Admin Acetaminophen (Tylenol) 650 mg Q4H PRN ORAL Mild Pain (Pain Scale 1-3) 12/13/19 10:00 12/13/19 18:00 Acetaminophen (Tylenol) 650 mg Q6H PRN ORAL Mild Pain/Temp > 100.5 12/06/19 18:30 01/02/20 18:29 Al Hydroxide/Mg Hydroxide (Mylanta) 15 ml Q1H PRN ORAL gi upset 12/13/19 10:00 12/13/19 18:00 Aspirin (Ecotrin) 81 mg DAILY ORAL 12/07/19 09:00 01/03/20 08:59 12/12/19 09:18 Atropine Sulfate (Atropine) 0.5 mg Q5M PRN IV bpm less than 45 12/13/19 10:00 12/13/19 18:00 Dextrose (Dextrose 50%) 25 ml Q30M PRN IV Hypoglycemia 12/06/19 18:30 01/02/20 18:29 12/07/19 16:59 Dextrose (Dextrose 50%) 50 ml Q30M PRN IV Hypoglycemia 12/06/19 18:30 01/02/20 18:29 Dextrose/Sodium Chloride 1,000 ml @ 50 mls/hr Q20H IV 12/11/19 12:34 01/10/20 12:33 12/13/19 05:16 Diphenhydramine HCl (Benadryl) 25 mg Q15M PRN IVP Itching 12/13/19 10:00 12/13/19 18:00 Diphenhydramine HCl (Benadryl) 25 mg Q6H PRN ORAL Itching/Pruritis 12/06/19 19:00 01/02/20 18:59 Docusate Sodium (Colace) 100 mg TID ORAL 12/07/19 09:00 01/03/20 08:59 12/12/19 17:05 Escitalopram Oxalate (Lexapro) 10 mg DAILY ORAL 12/11/19 09:00 01/10/20 08:59 12/12/19 09:18 Fentanyl Citrate (Sublimaze 100 mcg/2 mL) 25 mcg Q10M PRN IV Moderate Pain (Pain Scale 4-6) 12/13/19 10:00 12/13/19 18:00 Heparin Sodium (Porcine) (Heparin 5000 units/ml) 5,000 units EVERY 12 HOURS SUBQ 12/06/19 21:00 01/03/20 08:59 12/12/19 09:34 Hydralazine HCl (Apresoline) 5 mg Q30M PRN IV SBP>160 OR___/DBP>90 OR___ 12/13/19 10:00 12/13/19 18:00 Insulin Aspart (NovoLOG) BEFORE MEALS AND HS SUBQ 12/06/19 21:00 01/03/20 06:29 12/13/19 05:20 Insulin Detemir (Levemir) 8 units BEDTIME SUBQ 12/06/19 21:00 01/03/20 20:59 12/12/19 20:09 Megestrol Acetate (Megace) 400 mg TWICE A DAY ORAL 12/11/19 12:34 01/10/20 12:33 12/12/19 17:05 Midazolam HCl (Versed 2mg/2ml vial) 1 mg Q15M PRN IVP For Anxiety 12/13/19 10:00 12/13/19 18:00 Mirtazapine (Remeron) 15 mg BEDTIME ORAL 12/06/19 21:00 01/03/20 20:59 12/12/19 20:01 Ondansetron HCl (Zofran) 4 mg Q6H PRN IVP Nausea & Vomiting 12/06/19 19:00 01/02/20 18:59 Pantoprazole (Protonix) 40 mg DAILY ORAL 12/07/19 09:00 01/03/20 08:59 12/12/19 09:18 Sodium Chloride 1,000 ml @ 10 mls/hr Q24H IVLG 12/13/19 09:59 12/13/19 11:58 Tamsulosin HCl (Flomax) 0.4 mg BID ORAL 12/07/19 09:00 01/03/20 08:59 12/12/19 17:05 Kenyon Garcia MD Dec 13, 2019 11:00
[2019-12-13] MEDS ORDERED: cefOXitin 1gm Inj ONE (11:11)
--- NOTE | 2019-12-13 11:50 | NUR ---
NURSE NOTES: PT OFF UNIT.
[2019-12-13] MEDS ORDERED: Lidocaine 1% MPF 10mg/ml 5ml ONE (12:00)
[2019-12-13] MEDS ORDERED: Propofol 200mg/20ml IV ONE (12:00)
[2019-12-13] MEDS ORDERED: NS 500ML IVPB ONE (12:05)
--- NOTE | 2019-12-13 12:07 | Pre-Procedure Note/Attestation ---
Pre-Procedure Note/Attestation Complete Prior to Procedure Planned Procedure: not applicable Procedure Narrative: egd/peg Indications for Procedure Pre-Operative Diagnosis: dysphagia Attestation I attest that I discussed the nature of the procedure; its benefits; risks and complications; and alternatives (and the risks and benefits of such alternatives ), prior to the procedure, with the patient (or the patient's legal outside medical sales representative). I attest that, if there was a reasonable possibility of needing a blood transfusion, the patient (or the patient's legal outside medical sales representative) was given the [facility] standardized written summary, pursuant to the Ruben [place] Blood Safety Act ([place] Health and Safety Code # 1645, as amended). I attest that I re-evaluated the patient just prior to the surgery and that there has been no change in the patient's H&P, except as documented below: Lauro Bran MD Dec 13, 2019 12:07
[2019-12-13] MEDS ORDERED: cefOXitin 1gm Inj IVP ONE (12:10)
--- NOTE | 2019-12-13 12:12 | General Progress Note ---
Assessment/Plan Status: unchanged Assessment/Plan: Problems: (1) Encounter for PEG (percutaneous endoscopic gastrostomy) (2) Severe malnutrition (3) Dehydration (4) Anemia failed swallow eval IVF patient has failure to thrive and needs PEG placement no family around but patient POST agrees with PEG plan for today Subjective ROS Limited/Unobtainable: No Allergies: Coded Allergies: No Known Allergies (Unverified , 12/09/13) Objective Last 24 Hour Vital Signs Date Time Temp Pulse Resp B/P (MAP) Pulse Ox O2 Delivery O2 Flow Rate FiO2 12/13/19 12:00 98.1 69 18 129/79 (96) 96 12/13/19 09:00 Room Air 12/13/19 08:06 97.9 66 18 139/76 (97) 95 12/13/19 04:00 98.2 90 17 124/60 (81) 97 12/13/19 00:00 98.1 88 16 127/65 (85) 97 12/12/19 21:00 Room Air 12/12/19 20:00 98.2 92 18 108/54 (72) 98 12/12/19 16:00 98.8 61 18 122/65 (84) 99 Intake and Output 12/12/19 12/13/19 19:00 07:00 Intake Total 960 ml 50 ml Output Total 700 ml Balance 960 ml -650 ml Intake Oral 360 ml IV Total 600 ml 50 ml Output Urine Total 700 ml # Voids 1 Laboratory Tests 12/13/19 05:18: White Blood Count 11.1H, Red Blood Count 3.30L, Hemoglobin 10.1L, Hematocrit 29.7L, Mean Corpuscular Volume 90, Mean Corpuscular Hemoglobin 30.5, Mean Corpuscular Hemoglobin Concent 33.9, Red Cell Distribution Width 12.5, Platelet Count 173, Mean Platelet Volume 6.0L, Neutrophils (%) (Auto) 81.3H, Lymphocytes (%) (Auto) 12.3L, Monocytes (%) (Auto) 4.0, Eosinophils (%) (Auto) 1.8, Basophils (%) (Auto) 0.6, Prothrombin Time 10.9, Prothromb Time International Ratio 1.0, Activated Partial Thromboplast Time 26, Sodium Level 144, Potassium Level 4.0, Chloride Level 111H, Carbon Dioxide Level 22, Anion Gap 11, Blood Urea Nitrogen 11, Creatinine 1.4H, Estimat Glomerular Filtration Rate 48.2, Glucose Level 182H, Calcium Level 8.9 Height (Feet): 5 Height (Inches): 5.00 Weight (Pounds): 141 General Appearance: no apparent distress EENT: normal ENT inspection Neck: supple Cardiovascular: normal rate Respiratory/Chest: decreased breath sounds Abdomen: normal bowel sounds, non tender, soft Extremities: non-tender Lauro Bran MD Dec 13, 2019 12:12
--- NOTE | 2019-12-13 12:13 | Endoscopy Procedure Note ---
Endoscopy Procedure Note General Indication for Procedure: FTT Procedures Performed: EGD, PEG Operative Findings/Diagnosis: same Specimen: none Pt Tolerated Procedure Well: Yes Estimated Blood Loss: none Anesthesia Anesthesiologist: adriel Anesthesia: MAC Inserted Devices Implant(s) used?: No GI Core Measures 50 yrs or older w/o bx or poly: Not Applicable 10yrs. F/U recommended: Not Applicable Lauro Bran MD Dec 13, 2019 12:13
--- NOTE | 2019-12-13 12:22 | NUR ---
CASE MANAGEMENT:REVIEW SI;PNA. FTT. DYSPHAGIA. AC/CHR KIDNEY INJURY. TROPONIN LEAK. 98.1 90 18 139/76 95% ON RA WBC 11.1 CR 1.4 BG 182 IS;IVF D5W @ 50 ML/HR MEGACE PO BID PROTONIX PO QD ROCEPHIN IV QHS ASA PO QD MED SURG STATUS PLAN OF CARE; PEG TODAY IVF DCP;FROM [facility]
--- NOTE | 2019-12-13 12:48 | Immediate Post-Op Evaluation ---
Immediate Post-Op Evalulation Immediate Post-Op Evalulation Procedure: egd/peg Date of Evaluation: Dec 13, 2019 Time of Evaluation: 12:47 IV Fluids: 250ml 0.9ns Blood Products: none Estimated Blood Loss: negligible Blood Pressure Systolic: 91 Blood Pressure Diastolic: 57 Pulse Rate: 90 Respiratory Rate: 18 O2 Sat by Pulse Oximetry: 99 Temperature (Fahrenheit): 97.7 Pain Score (1-10): 0 Nausea: No Vomiting: No Complications none Patient Status: awake, reacts, patent Hydration Status: adequate Drug: cefoxitin 1gm Given Within 1 Hr of Incision: Yes Time Given: 12:10 Leatha Rosado MD Dec 13, 2019 12:48
--- NOTE | 2019-12-13 12:50 | 48 Hour Post Anesthesia Eval ---
Post Anesthesia Evaluation Procedure: egd/peg Date of Evaluation: Dec 13, 2019 Time of Evaluation: 12:49 Blood Pressure Systolic: 112 0: 65 Pulse Rate: 90 Respiratory Rate: 18 Temperature (Fahrenheit): 97.7 O2 Sat by Pulse Oximetry: 99 Airway: patent Nausea: No Vomiting: No Pain Intensity: 0 Hydration Status: adequate Cardiopulmonary Status: stable Mental Status/LOC: patient returned to baseline Post-Anesthesia Complications: none Follow-up care needed: N/A Leatha Rosado MD Dec 13, 2019 12:50
--- NOTE | 2019-12-13 13:00 | NUR ---
NURSE NOTES: PT ARRIVED ON UNIT IN STABLE CONDITION. RN CHANGED DRESSING ON NEW GTUBE. SMALL AMOUNT OF DRIED BLOOD NOTED AROUND GTUBE. PT STARTED ON GLUCERNA 1.2 AT 15CC/H, WITH GOAL RATE AT 60CC/H. PT IN HIGH BOLTON'S POSITION WITH HOB ELEVATED. PT STATES IT IS SORE ON HIS STOMACH. RN EDUCATED PT ON NEW GTUBE AND PURPOSE OF GTUBE. WILL CONTINUE TO MONITOR.
--- NOTE | 2019-12-13 14:00 | NUR ---
NURSE NOTES: ABDOMINAL BINDER APPLIED TO PT.
--- NOTE | 2019-12-13 14:06 | NUR ---
*-* INSURANCE *-* ALL AVAILABLE CLINICALS HAVE BEEN FAXED TO: [employer] NO REF# YET # [phone] FAX#[phone] REVIEWS/CLINICALS
--- NOTE | 2019-12-13 14:51 | Nephrology Progress Note ---
Assessment/Plan Problem List: (1) Renal failure (ARF), acute on chronic (2) Diabetes (3) HTN (hypertension) (4) Anemia Assessment Acute on chronic kidney disease likely diabetes mellitus and hypertension. Patient had echogenic kidneys on previous kidney ultrasound on August 2019 Hypertension Diabetes mellitus History of pleural effusion Ejection fraction of 50% in previous echocardiogram in August 2019 Mild Anemia BPH . Plan Patient now has a GT tube Will discontinue Megace Discharge planning in process Magnesium and phosphorus supplement intravenously Serum creatinine is stable Monitor renal parameters Keep the blood sugar and blood pressure and check Continue Flomax. Slow IV hydrate Check chest x-ray. Initiate anemia work-up. Continue per consultants. Subjective ROS Limited/Unobtainable: No Constitutional: Reports: malaise Objective Objective Last 24 Hour Vital Signs Date Time Temp Pulse Resp B/P (MAP) Pulse Ox O2 Delivery O2 Flow Rate FiO2 12/13/19 13:05 97.6 87 18 113/64 99 Room Air 12/13/19 12:58 86 19 104/68 98 Room Air 12/13/19 12:50 85 15 101/61 96 Room Air 12/13/19 12:50 90 18 99 12/13/19 12:48 90 18 99 12/13/19 12:45 88 20 91/57 97 Room Air 12/13/19 12:35 97.7 90 18 91/57 99 Nasal Cannula 3 12/13/19 12:00 98.1 69 18 129/79 (96) 96 12/13/19 09:00 Room Air 12/13/19 08:06 97.9 66 18 139/76 (97) 95 12/13/19 04:00 98.2 90 17 124/60 (81) 97 12/13/19 00:00 98.1 88 16 127/65 (85) 97 12/12/19 21:00 Room Air 12/12/19 20:00 98.2 92 18 108/54 (72) 98 12/12/19 16:00 98.8 61 18 122/65 (84) 99 Intake and Output 12/12/19 12/13/19 19:00 07:00 Intake Total 960 ml 50 ml Output Total 700 ml Balance 960 ml -650 ml Intake Oral 360 ml IV Total 600 ml 50 ml Output Urine Total 700 ml # Voids 1 Laboratory Tests 12/13/19 05:18: White Blood Count 11.1H, Red Blood Count 3.30L, Hemoglobin 10.1L, Hematocrit 29.7L, Mean Corpuscular Volume 90, Mean Corpuscular Hemoglobin 30.5, Mean Corpuscular Hemoglobin Concent 33.9, Red Cell Distribution Width 12.5, Platelet Count 173, Mean Platelet Volume 6.0L, Neutrophils (%) (Auto) 81.3H, Lymphocytes (%) (Auto) 12.3L, Monocytes (%) (Auto) 4.0, Eosinophils (%) (Auto) 1.8, Basophils (%) (Auto) 0.6, Prothrombin Time 10.9, Prothromb Time International Ratio 1.0, Activated Partial Thromboplast Time 26, Sodium Level 144, Potassium Level 4.0, Chloride Level 111H, Carbon Dioxide Level 22, Anion Gap 11, Blood Urea Nitrogen 11, Creatinine 1.4H, Estimat Glomerular Filtration Rate 48.2, Glucose Level 182H, Calcium Level 8.9 Height (Feet): 5 Height (Inches): 5.00 Weight (Pounds): 141 General Appearance: no apparent distress Cardiovascular: normal rate Respiratory/Chest: decreased breath sounds Abdomen: soft, other - GT tube was placed in today Objective No major change Bill Redman MD Dec 13, 2019 14:51
--- NOTE | 2019-12-13 16:05 | Cardiac Electrophysiology PN ---
Assessment/Plan Assessment/Plan 1. Ischemic cardiomyopathy, EF improved to 50% in 08/2019 and high BNP. Off Coreg as was migdalia down to 30s in prior admission 2. 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 Off Coreg. No CP. 3. Paroxysmal atrial fibrillation, remained in sinus rhythm with first-degree AV block when on tele. Off anticoagulation and was off even at the [facility] 4. Hyperlipidemia on Lipitor. 5. Urinary tract infection. 6. Hospital-acquired pneumonia. 7. FTT, S/P PEG by Dr Yina NERI RN Subjective Subjective S/P PEG today by Dr. Bran Objective Last 24 Hour Vital Signs Date Time Temp Pulse Resp B/P (MAP) Pulse Ox O2 Delivery O2 Flow Rate FiO2 12/13/19 15:52 97.7 83 17 129/80 (96) 98 12/13/19 13:05 97.6 87 18 113/64 99 Room Air 12/13/19 12:58 86 19 104/68 98 Room Air 12/13/19 12:50 85 15 101/61 96 Room Air 12/13/19 12:50 90 18 99 12/13/19 12:48 90 18 99 12/13/19 12:45 88 20 91/57 97 Room Air 12/13/19 12:35 97.7 90 18 91/57 99 Nasal Cannula 3 12/13/19 12:00 98.1 69 18 129/79 (96) 96 12/13/19 09:00 Room Air 12/13/19 08:06 97.9 66 18 139/76 (97) 95 12/13/19 04:00 98.2 90 17 124/60 (81) 97 12/13/19 00:00 98.1 88 16 127/65 (85) 97 12/12/19 21:00 Room Air 12/12/19 20:00 98.2 92 18 108/54 (72) 98 Intake and Output 12/12/19 12/13/19 19:00 07:00 Intake Total 960 ml 50 ml Output Total 700 ml Balance 960 ml -650 ml Intake Oral 360 ml IV Total 600 ml 50 ml Output Urine Total 700 ml # Voids 1 Laboratory Tests Test 12/13/19 05:18 White Blood Count 11.1 K/UL (4.8-10.8) H Red Blood Count 3.30 M/UL (4.70-6.10) L Hemoglobin 10.1 G/DL (14.2-18.0) L Hematocrit 29.7 % (42.0-52.0) L Mean Corpuscular Volume 90 FL (80-99) Mean Corpuscular Hemoglobin 30.5 PG (27.0-31.0) Mean Corpuscular Hemoglobin Concent 33.9 G/DL (32.0-36.0) Red Cell Distribution Width 12.5 % (11.6-14.8) Platelet Count 173 K/UL (150-450) Mean Platelet Volume 6.0 FL (6.5-10.1) L Neutrophils (%) (Auto) 81.3 % (45.0-75.0) H Lymphocytes (%) (Auto) 12.3 % (20.0-45.0) L Monocytes (%) (Auto) 4.0 % (1.0-10.0) Eosinophils (%) (Auto) 1.8 % (0.0-3.0) Basophils (%) (Auto) 0.6 % (0.0-2.0) Prothrombin Time 10.9 SEC (9.30-11.50) Prothromb Time International Ratio 1.0 (0.9-1.1) Activated Partial Thromboplast Time 26 SEC (23-33) Sodium Level 144 MMOL/L (136-145) Potassium Level 4.0 MMOL/L (3.5-5.1) Chloride Level 111 MMOL/L (98-107) H Carbon Dioxide Level 22 MMOL/L (21-32) Anion Gap 11 mmol/L (5-15) Blood Urea Nitrogen 11 mg/dL (7-18) Creatinine 1.4 MG/DL (0.55-1.30) H Estimat Glomerular Filtration Rate 48.2 mL/min (>60) Glucose Level 182 MG/DL (74-106) H Calcium Level 8.9 MG/DL (8.5-10.1) Objective HEAD AND NECK: Shows mild JVD. LUNGS: Coarse rhonchi. CARDIOVASCULAR: Regular S1 and S2 with no gallop. Sternotomy scar is intact. ABDOMEN: Soft. EXTREMITIES: No pitting edema. Sixto Wiggins MD Dec 13, 2019 16:05
--- NOTE | 2019-12-13 19:33 | NUR ---
HAND-OFF: Report given to Brenton MCINTOSH RN.
--- NOTE | 2019-12-13 20:10 | NUR ---
NURSE NOTES: Received report from DENAE Bunn. Pt sleeping in bed, on room air. GT feeding running @ 20cc/hr, tolerating well, no residual noted. ABD binder intact on Gtube. HOB elevated, IV site intact and running IVF. No acute distress noted. Bed locked, lowest position, alarm on, side rails up, call light within reach. Will continue to monitor.
--- NOTE | 2019-12-13 20:15 | Procedure Note ---
DATE OF PROCEDURE: 12/13/2019 SURGEON: Lauro Bran M.D. PROCEDURE: Upper endoscopy with PEG placement. ANESTHESIA: Per Dr. Hamm. INSTRUMENT: Olympus adult flexible upper endoscope. INDICATION: Dysphagia. REASON FOR PROCEDURE: The procedure, risks, benefits, and possible consequences, including hemorrhage, aspiration, perforation and infection, and alternative treatments, were explained to the patient/legal guardian by Dr. Lauro Bran and the patient/legal guardian understood and accepted these risks. DESCRIPTION OF PROCEDURE: After informed consent was obtained and the patient was adequately sedated, Olympus upper endoscope was advanced from mouth into the second portion of the duodenum and retroflexion was performed in the stomach. The patient has evidence of multiple gastric polyps, most probably fundic gland polyps. In the duodenum, there was evidence of duodenitis, mild to moderate. Then, under endoscopic guidance, under sterile condition, a 20-[place] pull type of G-tube was successfully placed in epigastric area. The distance from the tip of the tube to skin was about 2-1/2 cm in size. The patient tolerated the procedure very well without any complication. SUMMARY OF FINDINGS: 1. Multiple gastric polyps. 2. Duodenitis. 3. Status post successful PEG placement. RECOMMENDATIONS: 1. Abdominal binder. 2. Elevate the head of the bed at all times. 3. G-tube flush. 4. G-tube care. 5. Start tube feeding later today. The patient received dose of antibiotics prior to this procedure. I want to thank, Dr. Frederick, for this kind referral. Lauro Bran M.D. DR: MECHELLE JOB#: [id number] CC: Miguelangel Frederick M.D.; Fax#: [phone]
[2019-12-13] MEDS: Levemir Flexpen SUBQ SCH (21:06)
[2019-12-14] VITALS: BP 100/51
[2019-12-14] MEDS: D5 1/2NS 1,000 ML IV SCH (00:09)
--- NOTE | 2019-12-14 01:00 | Progress Note ---
DATE: 12/14/2019 SUBJECTIVE: The patient is in bed. The patient is depressed. Presents with anhedonia, worthlessness, hopelessness, decreased energy. The patient is not engaged and has low energy, poor memory, irritable. MENTAL STATUS EXAMINATION: The patient is alert, oriented times self. Mood is anxious. Affect is flat. Thought process, there is a paucity of thought content. No suicidal or homicidal ideation. Cognition is impaired. ASSESSMENT: 1. Major depressive disorder. 2. Dementia. PLAN: 1. Lexapro 10 mg in the morning. 2. Remeron 15 at bedtime. 3. Provide the patient with reality orientation and supportive therapy. Ana Chao M.D. DR: KATERIN JOB#: [id number] CC:
[2019-12-14 04:00] VITALS: BP 130/75
[2019-12-14] MEDS: NovoLOG Insulin Flexpen SUBQ SCH ×2 (05:43→12:27)
--- NOTE | 2019-12-14 07:35 | NUR ---
NURSE NOTES: Received report from DENAE Benton. Patient on room air. IV intact, patent, and infusing IV fluids. GT intact, patent, and infusing feeding. Bed in lowest position with call light in reach. Will continue with plan of care.
--- NOTE | 2019-12-14 07:40 | NUR ---
HAND-OFF: Report given to DENAE Estrella.
[2019-12-14 08:00] VITALS: BP 160/74
--- NOTE | 2019-12-14 08:14 | Nephrology Progress Note ---
Assessment/Plan Problem List: (1) Renal failure (ARF), acute on chronic (2) Diabetes (3) HTN (hypertension) (4) Anemia Assessment Acute on chronic kidney disease likely diabetes mellitus and hypertension. Patient had echogenic kidneys on previous kidney ultrasound on August 2019 Hypertension Diabetes mellitus History of pleural effusion Ejection fraction of 50% in previous echocardiogram in August 2019 Mild Anemia BPH . Plan Patient now has a GT tube Will discontinue Megace Discharge planning in process Magnesium and phosphorus supplement intravenously Serum creatinine is stable Monitor renal parameters Keep the blood sugar and blood pressure and check Continue Flomax. Slow IV hydrate Check chest x-ray. Initiate anemia work-up. Continue per consultants. Subjective ROS Limited/Unobtainable: No Constitutional: Reports: malaise Objective Objective Last 24 Hour Vital Signs Date Time Temp Pulse Resp B/P (MAP) Pulse Ox O2 Delivery O2 Flow Rate FiO2 12/14/19 04:00 98.4 100 18 130/75 (93) 95 12/14/19 00:00 98.0 90 20 100/51 (67) 95 12/13/19 21:00 Room Air 12/13/19 20:00 97.5 92 18 98/50 (66) 95 12/13/19 15:52 97.7 83 17 129/80 (96) 98 12/13/19 13:05 97.6 87 18 113/64 99 Room Air 12/13/19 12:58 86 19 104/68 98 Room Air 12/13/19 12:50 85 15 101/61 96 Room Air 12/13/19 12:50 90 18 99 12/13/19 12:48 90 18 99 12/13/19 12:45 88 20 91/57 97 Room Air 12/13/19 12:35 97.7 90 18 91/57 99 Nasal Cannula 3 12/13/19 12:00 98.1 69 18 129/79 (96) 96 12/13/19 09:00 Room Air Intake and Output 12/13/19 12/14/19 19:00 07:00 Intake Total 780 ml 680 ml Output Total 600 ml Balance 780 ml 80 ml Free Water 180 ml 350 ml IV Total 500 ml Tube Feeding 100 ml 330 ml Output Urine Total 600 ml # Voids 1 # Bowel Movements 1 No labs drawn today Height (Feet): 5 Height (Inches): 5.00 Weight (Pounds): 141 General Appearance: no apparent distress Cardiovascular: tachycardia Respiratory/Chest: decreased breath sounds Abdomen: soft, other - GT tube in place Objective No major change Bill Redman MD Dec 14, 2019 08:14
[2019-12-14] MEDS: Docusate 100mg cap ORAL SCH (09:00)
[2019-12-14] MEDS: Aspirin EC 81mg tab ORAL SCH (09:00)
--- NOTE | 2019-12-14 09:04 | Pulmonology Progress Note ---
Assessment/Plan Assessment/Plan IMPRESSION: 1. Left lung pneumonia. 2. Hypertension. 3. Dementia. 4. snf resident. 5. Diabetes mellitus. DISCUSSION: Off antibiotics. S/p GT Respiratory hygiene with breathing treatment Diabetes control DVT prophylaxis. I will follow. Dc planning Subjective Interval Events: S/p GT Constitutional: Reports: no symptoms HEENT: Repors: no symptoms Respiratory: Reports: no symptoms Cardiovascular: Reports: no symptoms Gastrointestinal/Abdominal: Reports: no symptoms Allergies: Coded Allergies: No Known Allergies (Unverified , 12/09/13) Objective Last 24 Hour Vital Signs Date Time Temp Pulse Resp B/P (MAP) Pulse Ox O2 Delivery O2 Flow Rate FiO2 12/14/19 04:00 98.4 100 18 130/75 (93) 95 12/14/19 00:00 98.0 90 20 100/51 (67) 95 12/13/19 21:00 Room Air 12/13/19 20:00 97.5 92 18 98/50 (66) 95 12/13/19 15:52 97.7 83 17 129/80 (96) 98 12/13/19 13:05 97.6 87 18 113/64 99 Room Air 12/13/19 12:58 86 19 104/68 98 Room Air 12/13/19 12:50 85 15 101/61 96 Room Air 12/13/19 12:50 90 18 99 12/13/19 12:48 90 18 99 12/13/19 12:45 88 20 91/57 97 Room Air 12/13/19 12:35 97.7 90 18 91/57 99 Nasal Cannula 3 12/13/19 12:00 98.1 69 18 129/79 (96) 96 Intake and Output 12/13/19 12/14/19 19:00 07:00 Intake Total 780 ml 680 ml Output Total 600 ml Balance 780 ml 80 ml Free Water 180 ml 350 ml IV Total 500 ml Tube Feeding 100 ml 330 ml Output Urine Total 600 ml # Voids 1 # Bowel Movements 1 General Appearance: no acute distress HEENT: normocephalic Respiratory/Chest: chest wall non-tender Cardiovascular: normal peripheral pulses Abdomen: normal bowel sounds Current Medications Medications (Trade) Dose Ordered Sig/Breanna Route PRN Reason Start Time Stop Time Status Last Admin Dose Admin Acetaminophen (Tylenol) 650 mg Q6H PRN ORAL Mild Pain/Temp > 100.5 3/20 18:30 01/02/20 18:29 12/13/19 17:05 Aspirin (Ecotrin) 81 mg DAILY ORAL 12/07/19 09:00 01/03/20 08:59 12/12/19 09:18 Dextrose (Dextrose 50%) 25 ml Q30M PRN IV Hypoglycemia 12/06/19 18:30 01/02/20 18:29 12/07/19 16:59 Dextrose (Dextrose 50%) 50 ml Q30M PRN IV Hypoglycemia 12/06/19 18:30 01/02/20 18:29 Dextrose/Sodium Chloride 1,000 ml @ 50 mls/hr Q20H IV 12/11/19 12:34 01/10/20 12:33 12/14/19 00:09 Diphenhydramine HCl (Benadryl) 25 mg Q6H PRN ORAL Itching/Pruritis 12/06/19 19:00 01/02/20 18:59 Docusate Sodium (Colace) 100 mg TID ORAL 12/07/19 09:00 01/03/20 08:59 12/13/19 17:04 Escitalopram Oxalate (Lexapro) 10 mg DAILY ORAL 12/11/19 09:00 01/10/20 08:59 12/12/19 09:18 Heparin Sodium (Porcine) (Heparin 5000 units/ml) 5,000 units EVERY 12 HOURS SUBQ 12/06/19 21:00 01/03/20 08:59 12/13/19 21:05 Insulin Aspart (NovoLOG) BEFORE MEALS AND HS SUBQ 12/06/19 21:00 01/03/20 06:29 12/14/19 05:43 Insulin Detemir (Levemir) 8 units BEDTIME SUBQ 12/06/19 21:00 01/03/20 20:59 12/13/19 21:06 Lansoprazole (Prevacid) 30 mg DAILY GT 12/14/19 09:00 01/13/20 08:59 Mirtazapine (Remeron) 15 mg BEDTIME ORAL 12/06/19 21:00 01/03/20 20:59 12/13/19 21:04 Ondansetron HCl (Zofran) 4 mg Q6H PRN IVP Nausea & Vomiting 12/06/19 19:00 01/02/20 18:59 Tamsulosin HCl (Flomax) 0.4 mg BID ORAL 12/07/19 09:00 01/03/20 08:59 12/13/19 17:04 Kenyon Garcia MD Dec 14, 2019 09:04
--- NOTE | 2019-12-14 09:57 | General Progress Note ---
Assessment/Plan Status: unchanged Assessment/Plan: Problems: (1) Encounter for PEG (percutaneous endoscopic gastrostomy) (2) Severe malnutrition (3) Dehydration (4) Anemia s/p PEG placement GTF GT care monitor for residuals Subjective ROS Limited/Unobtainable: No Allergies: Coded Allergies: No Known Allergies (Unverified , 12/09/13) Objective Last 24 Hour Vital Signs Date Time Temp Pulse Resp B/P (MAP) Pulse Ox O2 Delivery O2 Flow Rate FiO2 12/14/19 04:00 98.4 100 18 130/75 (93) 95 12/14/19 00:00 98.0 90 20 100/51 (67) 95 12/13/19 21:00 Room Air 12/13/19 20:00 97.5 92 18 98/50 (66) 95 12/13/19 15:52 97.7 83 17 129/80 (96) 98 12/13/19 13:05 97.6 87 18 113/64 99 Room Air 12/13/19 12:58 86 19 104/68 98 Room Air 12/13/19 12:50 85 15 101/61 96 Room Air 12/13/19 12:50 90 18 99 12/13/19 12:48 90 18 99 12/13/19 12:45 88 20 91/57 97 Room Air 12/13/19 12:35 97.7 90 18 91/57 99 Nasal Cannula 3 12/13/19 12:00 98.1 69 18 129/79 (96) 96 Intake and Output 12/13/19 12/14/19 19:00 07:00 Intake Total 880 ml 680 ml Output Total 600 ml Balance 880 ml 80 ml Free Water 180 ml 350 ml IV Total 600 ml Tube Feeding 100 ml 330 ml Output Urine Total 600 ml # Voids 1 # Bowel Movements 1 Height (Feet): 5 Height (Inches): 5.00 Weight (Pounds): 141 General Appearance: no apparent distress EENT: normal ENT inspection Neck: supple Cardiovascular: normal rate Respiratory/Chest: decreased breath sounds Abdomen: normal bowel sounds, non tender, soft Extremities: non-tender Lauro Bran MD Dec 14, 2019 09:57
[2019-12-14] MEDS: Heparin 5000 units/ml inj SUBQ SCH (10:52)
[2019-12-14] MEDS ORDERED: Aspirin Baby 81mg GT SCH (11:00)
[2019-12-14] MEDS ORDERED: MIRTAZAPINE15 M3 GT (11:02)
[2019-12-14] MEDS ORDERED: FLOMAX0.4 MG ORAL (11:02)
[2019-12-14] MEDS ORDERED: LANSOPRAZOLE30 MG GT (11:02)
--- NOTE | 2019-12-14 11:09 | Discharge Summary ---
Discharge Summary Hospital Course Date of Admission Dec 03, 2019 at 21:47 Date of Discharge 12/14/19 Admitting Diagnosis generalized weakness, metabolic acidosis HPI Edy Dubon is a 84 year old male who was admitted on Dec 03, 2019 at 21:47 for Generalized Weakness/Metabolic Acidosis Consultations GI,Cardiology,Nephrology,Psychiatry,Pulm Procedures PEG placement Hospital Course Mr. Dubon is a 84 year old male with hx of HTN, DM2, presenting from SNF with decreased PO intake, and KELLEN. He was admitted to the medical service, treated with IV fluids per nephrology recs with improvement in renal parameters. Patient also noted to have cough and left sided infiltrate on imaging, treated with azithromycin and ceftriaxone per Pulm, repeat imaging was unremarkable. Coreg held per cardiology recs due to asymptomatic bradycardia. Patient underwent PEG placement and is tolerating tube feeds, medications and nutrition to be given via PEG at SNF. He will be discharged to [facility] in improved condition. Discharge Diagnoses: #Decreased PO intake #Failure to thrive #Dysphagia #Severe protein calorie malnutrition #Acute on chronic kidney disease #KELLEN - stable #Left lung PNA #Chronic dCHF #ICM EF 50%, h/o CABG #Elevated troponin #bradycardia #Afib #hypoMagnesemia #DM2 #BPH #GERD Time spent on encounter: 35 mins, >50% on counseling, coordination of care. Discharge Medications New Medications: Lansoprazole* (Lansoprazole*) 30 Mg Capsule.dr 30 MG GT DAILY for 30 Days, #30 CAP Mirtazapine* (Mirtazapine*) 15 Mg Tablet 15 MG GT BEDTIME for 30 Days, #30 TAB Tamsulosin HCl (Flomax) 0.4 Mg Cap.er.24h 0.4 MG ORAL BID for 30 Days, #30 CAP Continued Medications: Acetaminophen* (Acetaminophen 325MG Tablet*) 325 Mg Tablet 650 MG ORAL Q6H PRN for Moderate Pain (Pain Scale 4-6) Allopurinol* (Allopurinol*) 100 Mg Tablet 100 MG ORAL DAILY for GOUT Aspirin Ec* (Aspirin Ec*) 81 Mg Tablet. 81 MG ORAL DAILY for CAD Escitalopram Oxalate* (Lexapro*) 10 Mg Tablet 10 MG ORAL DAILY for MDD Insulin Glargine (Lantus) 100 Unit/1 Ml Insuln.pen 23 UNITS SUBQ DAILY for T2DM Ipratropium [place] (Ipratropium [place]) 15 Ml [place] 2 SPR NS THREE TIMES A DAY for ALLERGIC RHINITIS Nateglinide* (Starlix*) 60 Mg Tablet 60 MG ORAL THREE TIMES A DAY for DM Rosuvastatin Calcium* (Crestor*) 10 Mg Tablet 10 MG ORAL DAILY for HLD Discharge Condition Upon Discharge: improving Discharge Vital Signs Last Vital Signs Date Time Temp Pulse Resp B/P (MAP) Pulse Ox O2 Delivery O2 Flow Rate FiO2 12/14/19 04:00 98.4 100 18 130/75 (93) 95 12/13/19 21:00 Room Air 12/13/19 12:35 3 12/09/19 07:33 21 Discharge Disposition Patient was discharged to SNF Discharge Diagnoses: (1) KELLEN (acute kidney injury) (2) Metabolic acidosis (3) Encounter for PEG (percutaneous endoscopic gastrostomy) (4) Severe malnutrition (5) Bronchitis Marcus Patel MD Dec 14, 2019 11:09
[2019-12-14 12:00] VITALS: BP 132/66
[2019-12-14] MEDS ORDERED: Docusate 100mg/10ml Liq GT SCH (13:00)
--- NOTE | 2019-12-14 13:39 | NUR ---
RD ASSESSMENT & RECOMMENDATIONS SEE CARE ACTIVITY FOR COMPLETE ASSESSMENT DAILY ESTIMATED NEEDS: Needs based on DM/ 66kg 25-30 kcals/kg 7833-6475 total kcals 1-1.3 g protein/kg 66-86 g total protein 25-30 mL/kg 3137-7411 total fluid mLs NUTRITION DIAGNOSIS: Swallowing difficulty R/T dysphagia as evidenced by TRASH MAN recommends puree texture, now s/p PEG placement. CURRENT TF:Glucerna 1.2 @60 PO DIET RECOMMENDATIONS: IF SAFE FOR ORAL DIET -> CCHO MED + LOW NA / texture per TRASH MAN ENTERAL NUTRITION RECOMMENDATIONS: Glucerna 1.2 @ 60ml/hr x 24 hrs to provide 1440ml, 1728kcal, 86g prot, 1159ml free water * W/ GI access, initiate Glucerna 1.2 @ 20ml/hr x 6 hrs * Advance 10ml q 4-6 hrs as tolerated to goal rate * HOB over 30 degrees * H20 flush of 150ml q 6 hrs ADDITIONAL RECOMMENDATIONS: * Calibrated bedscale wt for accurate CBW * Monitor lytes, replete as needed * Monitor BGs closely w/ D5, need to adjust insulin * Monitor readiness for oral diet * TF recs as above if part of POC/ Bioethics pending .
--- NOTE | 2019-12-14 14:10 | NUR ---
NURSE NOTES: Patient being discharged to [facility] via ambulance life line unit [id number]. Gave report to Fang NAJERA and Romi MENDEZ. Discharge protocol followed.
--- NOTE | 2019-12-14 14:12 | NUR ---
NURSE NOTES: Attempted to give report to RN at [facility]. Spoke with front desk receptionist Vickie, and was told RN tank cleaning supervisor would call back. Notified front desk receptionist that patient has already been picked up by ambulance. Charge nurse aware. Addendum: 12/14/19 at 1618 by Delores Hernandez RN NURSE NOTES: ERROR. RN CALLED WRONG FACILITY TO GIVE REPORT. CORRECT FACILITY IS [facility]. Gave report to DENAE Drake of [facility].
[2019-12-14] MEDS ORDERED: Tamsulosin 0.4mg cap ORAL SCH (18:00)
--- NOTE | 2019-12-15 01:35 | Psych Consult Progress Note ---
Psychiatry Progress Note Psychiatry Progress Note Neurological/Psychiatric: Reports: anxiety, depressed, emotional problems Allergies: Coded Allergies: No Known Allergies (Unverified , 12/09/13) Objective Data Height (Feet): 5 Height (Inches): 5.00 Weight (Pounds): 141 General Appearance: no apparent distress, alert, confused, cachetic, thin Additional Comments: alert, oriented times self. Mood is anxious. Affect is flat. Thought process, there is a paucity of thought content. No suicidal or homicidal ideation. Cognition is impaired. ASSESSMENT: 1. Major depressive disorder. 2. Dementia. PLAN: 1. Lexapro 10 mg in the morning. 2. Remeron 15 at bedtime. 3. Provide the patient with reality orientation and supportive therapy. Assessment/Plan Status: unchanged Ana Chao MD Dec 15, 2019 01:35
== END 2019-12-14 14:10 | DRG 469 ==
LOC: EDBD 19:37 → EDUNIT# 19:37 → EMR 21:00 → 2E 21:47 → EDBEDREQ 22:49 → 4E 12-06 18:12
PROC: 0DH63UZ Insertion of Feeding Device into Stomach, Percutaneous Approach (ICD-10-PCS; principal; 2019-12-13 12:16)
DX: N17.9 Acute kidney failure, unspecified (principal); E43 Unspecified severe protein-calorie malnutrition; J18.9 Pneumonia, unspecified organism; E87.2 Acidosis; I48.0 Paroxysmal atrial fibrillation; I13.0 Hypertensive heart and chronic kidney disease with heart failure and stage 1 through stage 4 chronic kidney disease, or unspecified chronic kidney disease; I50.32 Chronic diastolic (congestive) heart failure; J44.0 Chronic obstructive pulmonary disease with (acute) lower respiratory infection; E86.0 Dehydration; N18.9 Chronic kidney disease, unspecified; F03.90 Unspecified dementia, unspecified severity, without behavioral disturbance, psychotic disturbance, mood disturbance, and anxiety; E11.21 Type 2 diabetes mellitus with diabetic nephropathy; E83.42 Hypomagnesemia; I25.5 Ischemic cardiomyopathy; N39.0 Urinary tract infection, site not specified; D64.9 Anemia, unspecified; F32.9 Major depressive disorder, single episode, unspecified; R62.7 Adult failure to thrive; Z68.23 Body mass index [BMI] 23.0-23.9, adult; N40.0 Benign prostatic hyperplasia without lower urinary tract symptoms; K21.9 Gastro-esophageal reflux disease without esophagitis; I25.10 Atherosclerotic heart disease of native coronary artery without angina pectoris; Z95.1 Presence of aortocoronary bypass graft; R13.10 Dysphagia, unspecified; K31.7 Polyp of stomach and duodenum; K29.80 Duodenitis without bleeding; R00.1 Bradycardia, unspecified
CPT/HCPCS: 36415; 70450; 71045; 71250; 80048; 80053; 80076; 81003; 82607; 82728; 82746; 82962; 83036; 83540; 83550; 83690; 83735; 83880; 84100; 84443; 84484; 84550; 85025; 85610; 85730; 86140; 86710; 86850; 86900; 86901; 87070; 87081; 87205; 93005; 93306; 94003; 94150; 94640; 94664; 96374; 99285; J1815; J7620; S5561

== ENCOUNTER 2020-03-04 15:35 | Inpatient (IN) | payer MEDICARE, MEDICAID ==
[~2020-03-04] VITALS: Ht 172.7 cm; Wt 91.4 kg
[~2020-03-04 15:35] MED LIST changes: +ACETAMINOPHEN325 M1 ORAL; +ACETAMINOPHEN500 M3 ORAL; +LANSOPRAZOLE30 MG GT; +LEXAPRO10 MG ORAL; +MIRTAZAPINE15 M3 GT; +Vancomycin 1.5gm/NS Premix q24h IVPB SCH
[2020-03-04] MEDS ORDERED: Cefepime HCl 2 GM in NS 110 ML IV ONE (15:45)
--- NOTE | 2020-03-04 15:56 | Emergency Room Report ---
History of Present Illness General Chief Complaint: Dyspnea/Respdistress Source: Medical Record Present Illness HPI Patient is a 84-year-old male brought in by [facility] ambulance after increased difficulty with breathing. Patient was noted to have prior history of COPD. He reportedly had increased difficulty breathing gradual onset. Patient is from a facility and has had a recent negative coronavirus testing. Markedly increased work of breathing. Prior history of G-tube dependence. 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 COVID-19 Screening: Negative COVID-19 COVID-19 Testing Source: Nasopharyngeal Patient History Reviewed Nursing Documentation: PMH: Agreed; PSxH: Agreed Nursing Documentation-PMH Past Medical History: No History, Except For Hx Cardiac Problems: Yes - heart failure, a-fib, CAD, coronary artery bypass Hx Hypertension: Yes - fall Hx COPD: Yes Hx Diabetes: Yes Hx Cancer: No Hx Gastrointestinal Problems: Yes - G-tube, dysphagia Hx Neurological Problems: Yes Hx Dementia: Yes Hx Weakness: Yes Hx Fatigue: Yes Review of Systems All Other Systems: negative except mentioned in HPI Physical Exam Vital Signs Date Time Temp Pulse Resp B/P (MAP) Pulse Ox O2 Delivery O2 Flow Rate FiO2 03/04/20 15:45 99.1 102 27 133/71 (91) 99 Nasal Cannula 4.0 Sp02 EP Interpretation: reviewed, normal General Appearance: normal inspection, alert, obese, Chronically Ill Head: atraumatic ENT: normal ENT inspection, hearing grossly normal, normal voice Neck: normal inspection, full range of motion, supple, no bony tend Respiratory: normal inspection, no retraction, respiratory distress Cardiovascular #1: regular rate, rhythm, no edema Gastrointestinal: normal inspection, normal bowel sounds, non tender, soft, no guarding, no hernia Genitourinary: no CVA tenderness Musculoskeletal: normal inspection, back normal, normal range of motion Neurologic: alert, responsive, speech normal, normal inspection Psychiatric: normal inspection, judgement/insight normal, mood/affect normal Procedures Critical Care Time Critical Care Time Patient had a critical medical condition which untreated could potentially result in life or limb threatening injury. Total critical care time excluding procedures approximately 45 minutes. Medical Decision Making Diagnostic Impression: Primary Impression: Pneumonia Additional Impressions: Diabetes Gastrostomy status Suspected 2019 novel coronavirus infection Acute on chronic renal failure ER Course Presented for shortness of breath. Differential diagnosis include was not limited to pneumonia, coronavirus infection, congestive heart failure among others. Patient presented for shortness of breath and appears to be somewhat dyspneic. He was started on supplemental oxygen. Chest x-ray 1 view read by radiology showed vascular markings which are indistinct and bilateral alveolar densities with multifocal infiltrates cardiomegaly is partially obscured. Bilateral pleural effusions.Patient is given IV antibiotics. Laboratory testing was notable for some increased creatinine compared to baseline. He was also noted to be mildly hyperkalemic. Patient was given Kayexalate due to hyperkalemia. EKG did not show any evidence of QRS widening Dr. Oswaldo Alex was contacted for [facility] for inpatient management due to covering physician. Patient will be admitted to the hospital for further evaluation and treatment. Laboratory Tests Test 03/04/20 15:50 White Blood Count 15.4 K/UL (4.8-10.8) H Red Blood Count 2.70 M/UL (4.70-6.10) L Hemoglobin 7.9 G/DL (14.2-18.0) L Hematocrit 27.1 % (42.0-52.0) L Mean Corpuscular Volume 100 FL (80-99) H Mean Corpuscular Hemoglobin 29.4 PG (27.0-31.0) Mean Corpuscular Hemoglobin Concent 29.3 G/DL (32.0-36.0) L Red Cell Distribution Width 15.4 % (11.6-14.8) H Platelet Count 167 K/UL (150-450) Mean Platelet Volume 8.0 FL (6.5-10.1) Neutrophils (%) (Auto) % (45.0-75.0) Lymphocytes (%) (Auto) % (20.0-45.0) Monocytes (%) (Auto) % (1.0-10.0) Eosinophils (%) (Auto) % (0.0-3.0) Basophils (%) (Auto) % (0.0-2.0) Differential Total Cells Counted 100 Neutrophils % (Manual) 92 % (45-75) H Lymphocytes % (Manual) 1 % (20-45) L Monocytes % (Manual) 6 % (1-10) Eosinophils % (Manual) 0 % (0-3) Basophils % (Manual) 1 % (0-2) Band Neutrophils 0 % (0-8) Platelet Estimate Decreased L Platelet Morphology Normal Polychromasia 1+ Hypochromasia 1+ Anisocytosis 1+ Macrocytosis 1+ Urine Color Yellow Urine Appearance Clear Urine pH 5 (4.5-8.0) Urine Specific [place] 1.015 (1.005-1.035) Urine Protein 2+ (NEGATIVE) H Urine Glucose (UA) Negative (NEGATIVE) Urine Ketones Negative (NEGATIVE) Urine Blood Negative (NEGATIVE) Urine Nitrite Negative (NEGATIVE) Urine Bilirubin Negative (NEGATIVE) Urine Urobilinogen Normal MG/DL (0.0-1.0) Urine Leukocyte Esterase Negative (NEGATIVE) Urine RBC 0-2 /HPF (0 - 0) H Urine WBC 0-2 /HPF (0 - 0) Urine Squamous Epithelial Cells None /LPF (NONE/OCC) Urine Bacteria Occasional /HPF (NONE) Sodium Level 138 MMOL/L (136-145) Potassium Level 6.4 MMOL/L (3.5-5.1) *H Chloride Level 100 MMOL/L (98-107) Carbon Dioxide Level 29 MMOL/L (21-32) Anion Gap 9 mmol/L (5-15) Blood Urea Nitrogen 108 mg/dL (7-18) H Creatinine 2.7 MG/DL (0.55-1.30) H Estimated Glomerular Filtration Rate 22.6 mL/min (>60) Glucose Level 161 MG/DL (74-106) H Lactic Acid Level 1.10 mmol/L (0.4-2.0) Calcium Level 8.4 MG/DL (8.5-10.1) L Total Bilirubin 0.5 MG/DL (0.2-1.0) Aspartate Amino Transferase (AST) 29 U/L (15-37) Alanine Aminotransferase (ALT) 33 U/L (12-78) Alkaline Phosphatase 146 U/L (46-116) H Total Creatine Kinase 81 U/L (26-308) Creatine Kinase MB 1.8 NG/ML (0.0-3.6) Creatine Kinase MB Relative Index 2.2 Troponin I 0.134 ng/mL (0.000-0.056) Total Protein 7.2 G/DL (6.4-8.2) Albumin 2.9 G/DL (3.4-5.0) L Globulin 4.3 g/dL Albumin/Globulin Ratio 0.7 (1.0-2.7) L EKG Diagnostic Results Rate: normal Rhythm: NSR ST Segments: other - anterior and inferior twave inversion Last Vital Signs Date Time Temp Pulse Resp B/P (MAP) Pulse Ox O2 Delivery O2 Flow Rate FiO2 03/04/20 15:45 99.1 102 27 133/71 (91) 99 Nasal Cannula 4.0 Status: improved Disposition: ADMITTED INPATIENT Condition: Serious Aston Alarcon MD Mar 04, 2020 15:56
[2020-03-04 16:00] VITALS: BP 133/71
[2020-03-04 16:15] LABS: HEMATOCRIT 27.1 % (42.0-52.0); HEMOGLOBIN 7.9 G/DL (14.2-18.0); MEAN CORPUSCULAR VOLUME 100 FL (80-99); PLATELET COUNT 167 K/UL (150-450); RED CELL DISTRIBUTION WIDTH 15.4 % (11.6-14.8); WHITE BLOOD COUNT 15.4 K/UL (4.8-10.8)
[2020-03-04 16:35] LABS: ALANINE AMINOTRANSFERASE 33 U/L (12-78); ALBUMIN 2.9 G/DL (3.4-5.0); ALBUMIN/GLOBULIN RATIO 0.7 (1.0-2.7); ALKALINE PHOSPHATASE 146 U/L (46-116); ANION GAP 9 mmol/L (5-15); ASPARTATE AMINO TRANSFERASE 29 U/L (15-37); BILIRUBIN,TOTAL 0.5 MG/DL (0.2-1.0); BLOOD UREA NITROGEN 108 mg/dL (7-18); CALCIUM 8.4 MG/DL (8.5-10.1); CARBON DIOXIDE 29 MMOL/L (21-32); CHLORIDE 100 MMOL/L (98-107); CKMB 1.8 NG/ML (0.0-3.6); CREATINE KINASE 81 U/L (26-308); CREATININE 2.7 MG/DL (0.55-1.30); SODIUM 138 MMOL/L (136-145)
[2020-03-04 16:50] LABS: POTASSIUM 6.4 MMOL/L (3.5-5.1)
--- NOTE | 2020-03-04 16:52 | Diagnostic Imaging Report ---
Procedure: XRAY Chest 1v Reason for study: Reason For Exam: SOB Comparison films: 12/12/2019. FINDINGS: A single one view chest is obtained. Vascular markings are indistinct. Bilateral alveolar densities noted likely multifocal infiltrates. Cardiomegaly is partially obscured . There are bilateral effusions. The bony thorax appear unremarkable. IMPRESSION: Bilateral infiltrates and effusions.
[2020-03-04 16:56] LABS: APPEARANCE,URINE CLEAR; BILIRUBIN, URINE NEGATIVE (NEGATIVE); GLUCOSE, URINE (UA) NEGATIVE (NEGATIVE); KETONES,URINE NEGATIVE (NEGATIVE); LEUKOCYTE ESTERASE ,URINE NEGATIVE (NEGATIVE); NITRITE,URINE NEGATIVE (NEGATIVE); PH,URINE 5 (4.5-8.0); PROTEIN,URINE 2+ (NEGATIVE); UROBILINOGEN,URINE NORMAL MG/DL (0.0-1.0)
[2020-03-04 16:58] LABS: COLOR,URINE YELLOW
[2020-03-04] MEDS ORDERED: Sodium Polystyrene Sulfonate 15gm Powder ORAL ONE (17:45)
[2020-03-04 18:00] VITALS: BP 119/56
[2020-03-04] MEDS ORDERED: RENA-VITE TABL0.8 M1 GT (18:03)
[2020-03-04] MEDS ORDERED: DUONEB 0.5-3(2.53 ML HHN (18:03)
[2020-03-04] MEDS ORDERED: ZINC SULFATE220 M1 ORAL (18:03)
[2020-03-04 20:00] VITALS: BP 122/74
[2020-03-04] MEDS: Heparin 5000 units/ml inj SUBQ SCH (21:00)
[2020-03-04] MEDS ORDERED: traMADol 50mg tab ORAL PRN (21:00)
[2020-03-04] MEDS ORDERED: Calcium Gluconate 10% 1 GM in NS 110 ML IVPB ONE (21:00)
[2020-03-04] MEDS ORDERED: Acetaminophen 650mg/20.3ml GT PRN (21:00)
[2020-03-04] MEDS ORDERED: Insulin Human Regular 100units/ml 3ml IV ONE (21:00)
[2020-03-04] MEDS: Tamsulosin 0.4mg cap ORAL SCH (21:45)
[2020-03-04] MEDS: Atorvastatin 20mg tab GT SCH (21:46)
[2020-03-04] MEDS: Piperacillin/Tazobactam 3.375 GM in NS 110 ML IVPB SCH (22:00)
[2020-03-04] MEDS ORDERED: NovoLOG Insulin Flexpen SUBQ SCH (22:00)
[2020-03-04] MEDS ORDERED: Calcium Gluconate 10% 1 GM in NS 110 ML IVPB SCH (22:30)
[2020-03-04] MEDS ORDERED: Insulin Human Regular 100units/ml 3ml IV SCH (22:30)
[2020-03-05] VITALS: BP 108/67
[2020-03-05] MEDS ORDERED: Vancomycin 1.5gm/NS Premix q24h IVPB SCH ×2 (03:00→23:00)
[2020-03-05 04:00] VITALS: BP 133/60
[2020-03-05 05:10] LABS: HEMATOCRIT 25.3 % (42.0-52.0); HEMOGLOBIN 8.3 G/DL (14.2-18.0); MEAN CORPUSCULAR VOLUME 92 FL (80-99); PLATELET COUNT 177 K/UL (150-450); RED BLOOD COUNT 2.75 M/UL (4.70-6.10); RED CELL DISTRIBUTION WIDTH 14.3 % (11.6-14.8); WHITE BLOOD COUNT 20.8 K/UL (4.8-10.8)
[2020-03-05 05:46] LABS: ALANINE AMINOTRANSFERASE 32 U/L (12-78); ALBUMIN 2.9 G/DL (3.4-5.0); ALBUMIN/GLOBULIN RATIO 0.7 (1.0-2.7); ALKALINE PHOSPHATASE 142 U/L (46-116); ANION GAP 9 mmol/L (5-15); ASPARTATE AMINO TRANSFERASE 36 U/L (15-37); BILIRUBIN,TOTAL 0.6 MG/DL (0.2-1.0); BLOOD UREA NITROGEN 116 mg/dL (7-18); CALCIUM 9.2 MG/DL (8.5-10.1); CARBON DIOXIDE 30 MMOL/L (21-32); CHLORIDE 103 MMOL/L (98-107); CREATININE 2.7 MG/DL (0.55-1.30); PHOSPHORUS 5.7 MG/DL (2.5-4.9); SODIUM 141 MMOL/L (136-145)
[2020-03-05 05:51] LABS: POTASSIUM 6.3 MMOL/L (3.5-5.1)
[2020-03-05] MEDS: NovoLOG Insulin Flexpen SUBQ SCH ×4 (06:00→23:44)
[2020-03-05 08:00] VITALS: BP 126/70
--- NOTE | 2020-03-05 08:50 | History and Physical ---
History of Present Illness General Date patient seen: Mar 05, 2020 Reason for Hospitalization: Dyspnea/Respdistress Present Illness HPI This is an 84-year-old male with a history of congestive heart failure, dementia , diabetes, hypertension, hyperlipidemia, peripheral vascular disease, bipolar disorder that presents to the emergency department from his snf facility with hypoxia found to be septic with bilateral PNA. Per [facility] at [facility] pt was noted to be progressively SOB yesterday and then became hypoxic in the afternoon at which time he was sent by EMS to the ED w/ sats in the 80s on supplemental oxygen. He was recently discharged form [facility] after admit for syncope w head trauma ( to 02/15), workup unremarkable for syncope and neg for ICH. TTE not able to be done as pt refused. His Lasix was stopped due to rise in Cr (1.4 to 1.56 on DC), unclear if pt has been off diuretics at SNF. There were some lung opacities seen on CXR on 02/14 (See read below), ID and pulm did not think abx were necessary at that time and pt was rulled out for COVID w/ PCR neg x 2 24 hrs apart prior to dc back to SNF. In the ED pt was found to be afebrile, tachycardic, hds. CXR showed multifocal bilateral pna & bilateral effusion. Labs were sig for leukocytosis, hyperkalemia , mavis w/ Cr 2.7, Tn 0.13, bnp 32k, abg w/ resp acidosis pH 7.3/co 2 56. Pt was started empirically on vanco/cefepime, received insulin/d50/ca/kayexelate and admitted to stepdown unit. EKG was unremarkable per ED. XRAY CHEST 1 VIEW FRONTAL PORTABLE ~02/15/2020 6:30 AM CLINICAL INDICATION: Cough COMPARISON: 02/13/2020 FINDINGS: There is stable enlargement of the cardiomediastinal silhouette. There is slight interval increase in pulmonary vascular congestion. Patchy opacities in left mid to lower lung are not significantly changed in appearance from prior exam. There are slightly increased opacities in the right lower lung. Moderate bilateral effusions are stable findings. Calcified pleural plaques are again seen. There is no pneumothorax. There is no evidence of acute osseous abnormality. Median sternotomy wires are stable findings. IMPRESSION: Slight interval increase in pulmonary vascular congestion and right basilar opacities. Persistent bilateral effusions and patchy opacities in the left mid to lower lung. Reviewed and Interpreted by: Vira Powell M.D. ~02/15/2020 9:03 AM Family Hx: Unable to obtain due to ams/poor cooperation Social Hx: SNF resident at [facility] Denies etoh/tobacco/drug use Allergies: Coded Allergies: No Known Allergies (Unverified , 12/09/13) COVID-19 Screening Contact w/high risk pt: Yes Recent Travel to affected area: No Experienced COVID-19 symptoms?: Yes COVID-19 symptoms experienced: Shortness of Breath, Cough Medication History Scheduled Allopurinol* (Allopurinol*), 100 MG ORAL DAILY, (Reported) Aspirin Ec* (Aspirin Ec*), 81 MG ORAL DAILY, (Reported) Cranberry Fruit (Cranberry), 450 MG PO DAILY, (Reported) Docusate Sodium* (Docusate Sodium*), 100 MG ORAL TWICE A DAY, (Reported) Escitalopram Oxalate* (Lexapro*), 10 MG ORAL DAILY, (Reported) Ferrous Sulfate* (Ferrous Sulfate*), 325 MG ORAL TWICE A DAY, (Reported) Fluticasone Propionate (Flovent Hfa), 1 PUFFS INH BID, (Reported) Folic Acid* (Folic Acid*), 1 MG ORAL DAILY, (Reported) Folic Acid/Vitamin B Comp W-C (Isabel-Bautista Tablet), 0.8 MG GT DAILY, (Reported) Insulin Glargine (Lantus), 23 UNITS SUBQ DAILY, (Reported) Ipratropium [place] (Ipratropium [place]), 2 SPR NS THREE TIMES A DAY, (Reported ) Lansoprazole* (Lansoprazole*), 30 MG GT DAILY Melatonin (Melatonin 5 Mg Tablet), 1 TAB ORAL BEDTIME, (Reported) Mirtazapine* (Mirtazapine*), 15 MG GT BEDTIME Nateglinide* (Starlix*), 60 MG ORAL THREE TIMES A DAY, (Reported) Pantoprazole* (Pantoprazole*), 40 MG ORAL ACBREAKAST, (Reported) Rosuvastatin Calcium* (Crestor*), 10 MG ORAL DAILY, (Reported) Tamsulosin HCl (Flomax), 0.4 MG ORAL BID Zinc Sulfate (Zinc Sulfate*), 220 MG ORAL DAILY, (Reported) Scheduled PRN Acetaminophen* (Acetaminophen 325MG Tablet*), 650 MG ORAL Q6H PRN for Moderate Pain (Pain Scale 4-6), (Reported) Acetaminophen* (Acetaminophen Extra Strength*), 1,000 MG ORAL Q6H PRN for Severe Pain (Pain Scale 7-10), (Reported) Acetaminophen* (Acetaminophen Extra Strength*), 500 MG ORAL Q6H PRN for Mild Pain/Temp > 100.5, (Reported) Ipratropium/Albuterol Sulfate (DuoNeb 0.5-3(2.5)mg/3ml), 3 ML HHN EVERY 6 HOURS PRN for Shortness of Breath, (Reported) Ondansetron* (Zofran*), 4 MG ORAL Q8HR PRN for Nausea & Vomiting, (Reported) Patient History Limited by: medical condition - ams, other Healthcare decision maker Resuscitation status Full Code Advanced Directive on File No, DNAR per POLST Review of Systems Respiratory: Reports: see HPI, shortness of breath Cardiovascular: Reports: palpitations All Other Systems: negative except mentioned in HPI ROS Narrative limited due to ams and poor pt participation Physical Exam General Appearance: WD/WN, moderate distress HEENT: normocephalic, atraumatic, anicteric, PERRL, EOMI, supple Neck: supple, abnormal alignment Respiratory/Chest: respiratory distress - mild, decreased breath sounds - bilat lower carter Cardiovascular/Chest: no gallop/murmur, no JVD, irregularly irregular Abdomen: non tender, soft Extremities: normal inspection Skin Exam: other - echymosis noted Neurologic: alert, disoriented Last 24 Hour Vital Signs Date Time Temp Pulse Resp B/P (MAP) Pulse Ox O2 Delivery O2 Flow Rate FiO2 03/05/20 08:00 95.4 93 26 126/70 (88) 98 03/05/20 04:00 Venturi Mask 15.0 Venturi Mask 15.0 03/05/20 04:00 91 03/05/20 04:00 15.0 03/05/20 04:00 96.9 91 30 133/60 (84) 93 03/05/20 00:00 15.0 03/05/20 00:00 96.8 108 22 108/67 (81) 98 03/05/20 00:00 Venturi Mask 15.0 Venturi Mask 15.0 03/04/20 23:56 Non-Rebreather 15.0 03/04/20 23:31 90 03/04/20 20:00 97.2 112 24 122/74 (90) 97 03/04/20 20:00 Non-Rebreather 15.0 Venturi Mask 15.0 03/04/20 19:46 91 03/04/20 19:13 99.1 87 21 119/56 100 Bi-pap 4.0 50 03/04/20 18:00 99.1 87 21 119/56 100 Bi-pap 03/04/20 16:50 101 26 94 Bi-Pap 50 03/04/20 16:47 101 26 94 50 03/04/20 16:00 99.1 27 133/71 99 Nasal Cannula 4.0 03/04/20 16:00 98 27 Nasal Cannula 4.0 03/04/20 15:45 99.1 102 27 133/71 (91) 99 Nasal Cannula 4.0 Intake and Output 03/04/20 03/05/20 18:59 06:59 Intake Total 770.0 ml Balance 770.0 ml Intake Free Water 60 ml IV Total 230.0 ml Tube Feeding 480 ml Laboratory Tests Test 03/04/20 15:50 03/04/20 22:50 03/05/20 03:27 White Blood Count 15.4 K/UL (4.8-10.8) H 20.8 K/UL (4.8-10.8) H Red Blood Count 2.70 M/UL (4.70-6.10) L 2.75 M/UL (4.70-6.10) L Hemoglobin 7.9 G/DL (14.2-18.0) L 8.3 G/DL (14.2-18.0) L Hematocrit 27.1 % (42.0-52.0) L 25.3 % (42.0-52.0) L Mean Corpuscular Volume 100 FL (80-99) H 92 FL (80-99) Mean Corpuscular Hemoglobin 29.4 PG (27.0-31.0) 30.4 PG (27.0-31.0) Mean Corpuscular Hemoglobin Concent 29.3 G/DL (32.0-36.0) L 33.0 G/DL (32.0-36.0) Red Cell Distribution Width 15.4 % (11.6-14.8) H 14.3 % (11.6-14.8) Platelet Count 167 K/UL (150-450) 177 K/UL (150-450) Mean Platelet Volume 8.0 FL (6.5-10.1) 6.3 FL (6.5-10.1) L Neutrophils (%) (Auto) % (45.0-75.0) % (45.0-75.0) Lymphocytes (%) (Auto) % (20.0-45.0) % (20.0-45.0) Monocytes (%) (Auto) % (1.0-10.0) % (1.0-10.0) Eosinophils (%) (Auto) % (0.0-3.0) % (0.0-3.0) Basophils (%) (Auto) % (0.0-2.0) % (0.0-2.0) Differential Total Cells Counted 100 Neutrophils % (Manual) 92 % (45-75) H Pending Lymphocytes % (Manual) 1 % (20-45) L Pending Monocytes % (Manual) 6 % (1-10) Eosinophils % (Manual) 0 % (0-3) Basophils % (Manual) 1 % (0-2) Band Neutrophils 0 % (0-8) Platelet Estimate Decreased L Pending Platelet Morphology Normal Pending Polychromasia 1+ Hypochromasia 1+ Anisocytosis 1+ Macrocytosis 1+ Urine Color Yellow Urine Appearance Clear Urine pH 5 (4.5-8.0) Urine Specific [place] 1.015 (1.005-1.035) Urine Protein 2+ (NEGATIVE) H Urine Glucose (UA) Negative (NEGATIVE) Urine Ketones Negative (NEGATIVE) Urine Blood Negative (NEGATIVE) Urine Nitrite Negative (NEGATIVE) Urine Bilirubin Negative (NEGATIVE) Urine Urobilinogen Normal MG/DL (0.0-1.0) Urine Leukocyte Esterase Negative (NEGATIVE) Urine RBC 0-2 /HPF (0 - 0) H Urine WBC 0-2 /HPF (0 - 0) Urine Squamous Epithelial Cells None /LPF (NONE/OCC) Urine Bacteria Occasional /HPF (NONE) Sodium Level 138 MMOL/L (136-145) 141 MMOL/L (136-145) Potassium Level 6.4 MMOL/L (3.5-5.1) *H 6.3 MMOL/L (3.5-5.1) *H Chloride Level 100 MMOL/L (98-107) 103 MMOL/L (98-107) Carbon Dioxide Level 29 MMOL/L (21-32) 30 MMOL/L (21-32) Anion Gap 9 mmol/L (5-15) 9 mmol/L (5-15) Blood Urea Nitrogen 108 mg/dL (7-18) H 116 mg/dL (7-18) H Creatinine 2.7 MG/DL (0.55-1.30) H 2.7 MG/DL (0.55-1.30) H Estimat Glomerular Filtration Rate 22.6 mL/min (>60) 22.6 mL/min (>60) Glucose Level 161 MG/DL (74-106) H 138 MG/DL (74-106) H Hemoglobin A1c 7.1 % (4.3-6.0) H Lactic Acid Level 1.10 mmol/L (0.4-2.0) Calcium Level 8.4 MG/DL (8.5-10.1) L 9.2 MG/DL (8.5-10.1) Total Bilirubin 0.5 MG/DL (0.2-1.0) 0.6 MG/DL (0.2-1.0) Aspartate Amino Transf (AST/SGOT) 29 U/L (15-37) 36 U/L (15-37) Alanine Aminotransferase (ALT/SGPT) 33 U/L (12-78) 32 U/L (12-78) Alkaline Phosphatase 146 U/L (46-116) H 142 U/L (46-116) H Total Creatine Kinase 81 U/L (26-308) Creatine Kinase MB 1.8 NG/ML (0.0-3.6) Creatine Kinase MB Relative Index 2.2 Troponin I 0.134 ng/mL (0.000-0.056) 0.106 ng/mL (0.000-0.056) Total Protein 7.2 G/DL (6.4-8.2) 7.2 G/DL (6.4-8.2) Albumin 2.9 G/DL (3.4-5.0) L 2.9 G/DL (3.4-5.0) L Globulin 4.3 g/dL 4.3 g/dL Albumin/Globulin Ratio 0.7 (1.0-2.7) L 0.7 (1.0-2.7) L Arterial Blood pH 7.301 (7.350-7.450) Arterial Blood Partial Pressure CO2 57.3 mmHg (35.0-45.0) *H Arterial Blood Partial Pressure O2 404.0 mmHg (75.0-100.0) H Arterial Blood HCO3 27.6 mmol/L (22.0-26.0) H Arterial Blood Oxygen Saturation 99.3 % (95-100) Arterial Blood Base Excess 0.7 (-2-2) Ghulam Test Positive Phosphorus Level 5.7 MG/DL (2.5-4.9) H Magnesium Level 3.4 MG/DL (1.8-2.4) H Pro-B-Type Natriuretic Peptide 32312 pg/mL (0-125) H Height (Feet): 5 Height (Inches): 8.00 Weight (Pounds): 201 Medications Current Medications Medications (Trade) Dose Ordered Sig/Breanna Route PRN Reason Start Time Stop Time Status Last Admin Dose Admin Acetaminophen (Tylenol) 650 mg Q4HR PRN GT temp >100.5 or mild pain 03/04/20 21:00 04/03/20 20:59 Albuterol/ Ipratropium (Combivent Respimat) 1 puff Q4HR PRN INH SOB 03/04/20 21:00 04/03/20 20:59 03/04/20 21:58 Aspirin (ASA) 81 mg DAILY GT 03/05/20 09:00 04/19/20 08:59 Atorvastatin Calcium (Lipitor) 20 mg BEDTIME GT 03/04/20 21:00 06/02/20 20:59 03/04/20 21:46 Dextrose (Dextrose 50%) 25 ml Q30M PRN IV Hypoglycemia 03/04/20 20:45 06/02/20 20:44 03/04/20 23:07 Dextrose (Dextrose 50%) 50 ml Q30M PRN IV Hypoglycemia 03/04/20 20:45 06/02/20 20:44 Folic Acid (Folate) 1 mg DAILY GT 03/05/20 09:00 04/04/20 08:59 Heparin Sodium (Porcine) (Heparin 5000 units/ml) 5,000 units EVERY 12 HOURS SUBQ 03/04/20 21:00 04/18/20 20:59 Insulin Aspart (NovoLOG) Q6HR SUBQ 03/05/20 06:00 06/02/20 21:59 Lansoprazole (Prevacid) 30 mg DAILY NG 03/05/20 09:00 04/04/20 08:59 Piperacillin Sod/ Tazobactam Sod 3.375 gm/Sodium Chloride 110 ml @ 27.5 mls/hr Q12HR IVPB 03/04/20 22:00 03/11/20 21:59 03/04/20 22:00 Tamsulosin HCl (Flomax) 0.4 mg BEDTIME ORAL 03/04/20 21:00 04/03/20 20:59 03/04/20 21:45 Tramadol HCl (Ultram) 50 mg Q8H PRN ORAL Moderate to Severe Pain 03/04/20 21:00 03/11/20 20:59 Vancomycin HCl (Vanco pharmacy to dose) 1 ea DAILY PRN MISC Per rx protocol 03/04/20 20:45 04/03/20 20:44 Assessment/Plan Assessment/Plan: This is an 84-year-old male with a history of congestive heart failure, dementia , diabetes, hypertension, hyperlipidemia, peripheral vascular disease, bipolar disorder that presents to the emergency department from his snf facility with hypoxia found to be septic with bilateral PNA #PNA #Sepsis due to PNA #Hypoxic respiratory failure #Rule out COVID 19 #COPD - admit to in pt, PCU level of care - COVID 10 PCR neg 02/13 & 02/12 at [facility] prior to DC to SNF - CXR at [facility] 02/14 "Slight interval increase in pulmonary vascular congestion and right basilar opacities. Persistent bilateral effusions and patchy opacities in the left mid to lower lung." - Pulm consult - Was on BiPAP overnight -> Ventri mask - ABG PRN - ID consult - [S/p Vanc/Cefepime in ED x 1] - Abx: Vanc/Zosyn (03/05 - ) - Blood Cx sent 03/04 -> in process - Resp Cx - Supportive care # NSTEMI (tn 0.13 -> 0.10) # Acute on chronic systilic CHF (BNP 02323 on admit, TTE -> EF 45%) # CAD s/p CABG # pAfib - Cardiology consult - ceramic plater - Serial Tn downtrending - TTE (when covid ruled out) - asa, statin - hold on lasix for now - replete lytes for goal mag >2, K> 4 - strict i/os, daily weights - follow am labs # Hyperkalemia # Hypermagnesemia # CKD - s/p insulin/glucose/ca & kayexelate in ED - Nephro consult - trend chem, mag, phos #DM2 - Insulin sliding scale - hold home glargine for now, ctm and re start based on insulin requirement - dm diet #Toxic metabolic encephalopathy # Dementia # Bipolar? - hold home meds for now - neuro consult # Anemia - CTM - transfuse for Hb < 7.5 given CAD FENPPX DVTPPX: SCD/ HSQ GI PPX: PPI Fluids: mIVF Diet: cardiac/dm Lines: PIV PT/OT: defer for now Code status: Full Dispo: SNF ([facility]) Reason for Continued Hospitalization: PNA & Sepsis 75 minutes spent on this encounter. Discussed with RN at bedside and consultants above. 37 spent on counseling and care coordination. In addition to the usual care above I spent additional time reviewing records in the EMR at [facility] as well as EMR at [facility] including physician documentation, nursing documentation, laboratory results, imaging and other clinical documentation. Time for this activity started at 900am and ended at 950am. Time of note may not reflect time patient was seen. Osmel Alex MD Mar 05, 2020 08:50
[2020-03-05] MEDS: Aspirin Baby 81mg GT SCH (08:51)
[2020-03-05] MEDS: Piperacillin/Tazobactam 3.375 GM in NS 110 ML IVPB SCH ×2 (08:53→21:49)
[2020-03-05] MEDS: Heparin 5000 units/ml inj SUBQ SCH ×2 (08:54→21:09)
--- NOTE | 2020-03-05 09:17 | Consultation ---
History of Present Illness General Date patient seen: Mar 05, 2020 Chief Complaint: Dyspnea/Respdistress Present Illness HPI This is a 84 year old male with past medical history of congestive heart failure , dementia, diabetes, hypertension, hyperlipidemia, peripheral vascular disease , bipolar disorder that presents to the emergency department from his [facility] facility with hypoxia found to be septic with bilateral PNA. Per [facility] at [facility] pt was noted to be progressively SOB yesterday and then became hypoxic in the afternoon at which time he was sent by EMS to the ED w/ sats in the 80s on supplemental oxygen. He was recently discharged form [facility] after admit for syncope w head trauma (02/12 to 02/15), workup unremarkable for syncope and neg for ICH. TTE not able to be done as pt refused. His Lasix was stopped due to rise in Cr (1.4 to 1.56 on DC), unclear if pt has been off diuretics at [facility]. There were some lung opacities seen on CXR on 02/14 (See read below), ID and pulm did not think abx were necessary at that time and pt was rulled out for COVID w/ PCR neg x 2 24 hrs apart prior to dc back to SNF. In the ED pt was found to be afebrile, tachycardic, hds. CXR showed multifocal bilateral pna & bilateral effusion. Labs were sig for leukocytosis, hyperkalemia, mavis w/ Cr 2.7 , Tn 0.13, bnp 32k, abg w/ resp acidosis pH 7.3/co 2 56. Pt was started empirically on vanco/cefepime, received insulin/d50/ca/kayexelate and admitted to stepdown unit. EKG was unremarkable per ED. Allergies: Coded Allergies: No Known Allergies (Unverified , 12/09/13) Medication History Scheduled Allopurinol* (Allopurinol*), 100 MG ORAL DAILY, (Reported) Aspirin Ec* (Aspirin Ec*), 81 MG ORAL DAILY, (Reported) Cranberry Fruit (Cranberry), 450 MG PO DAILY, (Reported) Docusate Sodium* (Docusate Sodium*), 100 MG ORAL TWICE A DAY, (Reported) Escitalopram Oxalate* (Lexapro*), 10 MG ORAL DAILY, (Reported) Ferrous Sulfate* (Ferrous Sulfate*), 325 MG ORAL TWICE A DAY, (Reported) Fluticasone Propionate (Flovent Hfa), 1 PUFFS INH BID, (Reported) Folic Acid* (Folic Acid*), 1 MG ORAL DAILY, (Reported) Folic Acid/Vitamin B Comp W-C (Isabel-Bautista Tablet), 0.8 MG GT DAILY, (Reported) Insulin Glargine (Lantus), 23 UNITS SUBQ DAILY, (Reported) Ipratropium [place] (Ipratropium [place]), 2 SPR NS THREE TIMES A DAY, (Reported ) Lansoprazole* (Lansoprazole*), 30 MG GT DAILY Melatonin (Melatonin 5 Mg Tablet), 1 TAB ORAL BEDTIME, (Reported) Mirtazapine* (Mirtazapine*), 15 MG GT BEDTIME Nateglinide* (Starlix*), 60 MG ORAL THREE TIMES A DAY, (Reported) Pantoprazole* (Pantoprazole*), 40 MG ORAL ACBREAKAST, (Reported) Rosuvastatin Calcium* (Crestor*), 10 MG ORAL DAILY, (Reported) Tamsulosin HCl (Flomax), 0.4 MG ORAL BID Zinc Sulfate (Zinc Sulfate*), 220 MG ORAL DAILY, (Reported) Scheduled PRN Acetaminophen* (Acetaminophen 325MG Tablet*), 650 MG ORAL Q6H PRN for Moderate Pain (Pain Scale 4-6), (Reported) Acetaminophen* (Acetaminophen Extra Strength*), 1,000 MG ORAL Q6H PRN for Severe Pain (Pain Scale 7-10), (Reported) Acetaminophen* (Acetaminophen Extra Strength*), 500 MG ORAL Q6H PRN for Mild Pain/Temp > 100.5, (Reported) Ipratropium/Albuterol Sulfate (DuoNeb 0.5-3(2.5)mg/3ml), 3 ML HHN EVERY 6 HOURS PRN for Shortness of Breath, (Reported) Ondansetron* (Zofran*), 4 MG ORAL Q8HR PRN for Nausea & Vomiting, (Reported) Patient History Healthcare decision maker Resuscitation status Advanced Directive on File Review of Systems ROS Narrative Unable to obtain due to AMS Physical Exam General Appearance: lethargic, confused, mild distress Lines, tubes and drains: peripheral HEENT: normocephalic Neck: non-tender, normal alignment, supple Respiratory/Chest: rhonchi - bilaterally Cardiovascular/Chest: normal peripheral pulses, systolic murmur, irregularly irregular Abdomen: normal bowel sounds, non tender, soft Extremities: non-tender, no edema Skin Exam: normal pigmentation Neurologic: disoriented Last 24 Hour Vital Signs Date Time Temp Pulse Resp B/P (MAP) Pulse Ox O2 Delivery O2 Flow Rate FiO2 03/05/20 08:00 95.4 93 26 126/70 (88) 98 03/05/20 07:50 92 03/05/20 04:00 Venturi Mask 15.0 Venturi Mask 15.0 03/05/20 04:00 91 03/05/20 04:00 15.0 03/05/20 04:00 96.9 91 30 133/60 (84) 93 03/05/20 00:00 15.0 03/05/20 00:00 96.8 108 22 108/67 (81) 98 03/05/20 00:00 Venturi Mask 15.0 Venturi Mask 15.0 03/04/20 23:56 Non-Rebreather 15.0 03/04/20 23:31 90 03/04/20 20:00 97.2 112 24 122/74 (90) 97 03/04/20 20:00 Non-Rebreather 15.0 Venturi Mask 15.0 03/04/20 19:46 91 03/04/20 19:13 99.1 87 21 119/56 100 Bi-pap 4.0 50 03/04/20 18:00 99.1 87 21 119/56 100 Bi-pap 03/04/20 16:50 101 26 94 Bi-Pap 50 03/04/20 16:47 101 26 94 50 03/04/20 16:00 99.1 27 133/71 99 Nasal Cannula 4.0 03/04/20 16:00 98 27 Nasal Cannula 4.0 03/04/20 15:45 99.1 102 27 133/71 (91) 99 Nasal Cannula 4.0 Intake and Output 03/04/20 03/05/20 19:00 07:00 Intake Total 770.0 ml Balance 770.0 ml Intake Free Water 60 ml IV Total 230.0 ml Tube Feeding 480 ml Laboratory Tests Test 03/04/20 15:50 03/04/20 22:50 03/05/20 03:27 White Blood Count 15.4 K/UL (4.8-10.8) H 20.8 K/UL (4.8-10.8) H Red Blood Count 2.70 M/UL (4.70-6.10) L 2.75 M/UL (4.70-6.10) L Hemoglobin 7.9 G/DL (14.2-18.0) L 8.3 G/DL (14.2-18.0) L Hematocrit 27.1 % (42.0-52.0) L 25.3 % (42.0-52.0) L Mean Corpuscular Volume 100 FL (80-99) H 92 FL (80-99) Mean Corpuscular Hemoglobin 29.4 PG (27.0-31.0) 30.4 PG (27.0-31.0) Mean Corpuscular Hemoglobin Concent 29.3 G/DL (32.0-36.0) L 33.0 G/DL (32.0-36.0) Red Cell Distribution Width 15.4 % (11.6-14.8) H 14.3 % (11.6-14.8) Platelet Count 167 K/UL (150-450) 177 K/UL (150-450) Mean Platelet Volume 8.0 FL (6.5-10.1) 6.3 FL (6.5-10.1) L Neutrophils (%) (Auto) % (45.0-75.0) % (45.0-75.0) Lymphocytes (%) (Auto) % (20.0-45.0) % (20.0-45.0) Monocytes (%) (Auto) % (1.0-10.0) % (1.0-10.0) Eosinophils (%) (Auto) % (0.0-3.0) % (0.0-3.0) Basophils (%) (Auto) % (0.0-2.0) % (0.0-2.0) Differential Total Cells Counted 100 Neutrophils % (Manual) 92 % (45-75) H Pending Lymphocytes % (Manual) 1 % (20-45) L Pending Monocytes % (Manual) 6 % (1-10) Eosinophils % (Manual) 0 % (0-3) Basophils % (Manual) 1 % (0-2) Band Neutrophils 0 % (0-8) Platelet Estimate Decreased L Pending Platelet Morphology Normal Pending Polychromasia 1+ Hypochromasia 1+ Anisocytosis 1+ Macrocytosis 1+ Urine Color Yellow Urine Appearance Clear Urine pH 5 (4.5-8.0) Urine Specific [place] 1.015 (1.005-1.035) Urine Protein 2+ (NEGATIVE) H Urine Glucose (UA) Negative (NEGATIVE) Urine Ketones Negative (NEGATIVE) Urine Blood Negative (NEGATIVE) Urine Nitrite Negative (NEGATIVE) Urine Bilirubin Negative (NEGATIVE) Urine Urobilinogen Normal MG/DL (0.0-1.0) Urine Leukocyte Esterase Negative (NEGATIVE) Urine RBC 0-2 /HPF (0 - 0) H Urine WBC 0-2 /HPF (0 - 0) Urine Squamous Epithelial Cells None /LPF (NONE/OCC) Urine Bacteria Occasional /HPF (NONE) Sodium Level 138 MMOL/L (136-145) 141 MMOL/L (136-145) Potassium Level 6.4 MMOL/L (3.5-5.1) *H 6.3 MMOL/L (3.5-5.1) *H Chloride Level 100 MMOL/L (98-107) 103 MMOL/L (98-107) Carbon Dioxide Level 29 MMOL/L (21-32) 30 MMOL/L (21-32) Anion Gap 9 mmol/L (5-15) 9 mmol/L (5-15) Blood Urea Nitrogen 108 mg/dL (7-18) H 116 mg/dL (7-18) H Creatinine 2.7 MG/DL (0.55-1.30) H 2.7 MG/DL (0.55-1.30) H Estimat Glomerular Filtration Rate 22.6 mL/min (>60) 22.6 mL/min (>60) Glucose Level 161 MG/DL (74-106) H 138 MG/DL (74-106) H Hemoglobin A1c 7.1 % (4.3-6.0) H Lactic Acid Level 1.10 mmol/L (0.4-2.0) Calcium Level 8.4 MG/DL (8.5-10.1) L 9.2 MG/DL (8.5-10.1) Total Bilirubin 0.5 MG/DL (0.2-1.0) 0.6 MG/DL (0.2-1.0) Aspartate Amino Transf (AST/SGOT) 29 U/L (15-37) 36 U/L (15-37) Alanine Aminotransferase (ALT/SGPT) 33 U/L (12-78) 32 U/L (12-78) Alkaline Phosphatase 146 U/L (46-116) H 142 U/L (46-116) H Total Creatine Kinase 81 U/L (26-308) Creatine Kinase MB 1.8 NG/ML (0.0-3.6) Creatine Kinase MB Relative Index 2.2 Troponin I 0.134 ng/mL (0.000-0.056) 0.106 ng/mL (0.000-0.056) Total Protein 7.2 G/DL (6.4-8.2) 7.2 G/DL (6.4-8.2) Albumin 2.9 G/DL (3.4-5.0) L 2.9 G/DL (3.4-5.0) L Globulin 4.3 g/dL 4.3 g/dL Albumin/Globulin Ratio 0.7 (1.0-2.7) L 0.7 (1.0-2.7) L Arterial Blood pH 7.301 (7.350-7.450) Arterial Blood Partial Pressure CO2 57.3 mmHg (35.0-45.0) *H Arterial Blood Partial Pressure O2 404.0 mmHg (75.0-100.0) H Arterial Blood HCO3 27.6 mmol/L (22.0-26.0) H Arterial Blood Oxygen Saturation 99.3 % (95-100) Arterial Blood Base Excess 0.7 (-2-2) Ghulam Test Positive Phosphorus Level 5.7 MG/DL (2.5-4.9) H Magnesium Level 3.4 MG/DL (1.8-2.4) H Pro-B-Type Natriuretic Peptide 45175 pg/mL (0-125) H Height (Feet): 5 Height (Inches): 8.00 Weight (Pounds): 201 Medications Current Medications Medications (Trade) Dose Ordered Sig/Breanna Route PRN Reason Start Time Stop Time Status Last Admin Dose Admin Acetaminophen (Tylenol) 650 mg Q4HR PRN GT temp >100.5 or mild pain 03/04/20 21:00 04/03/20 20:59 Albuterol/ Ipratropium (Combivent Respimat) 1 puff Q4HR PRN INH SOB 03/04/20 21:00 04/03/20 20:59 03/04/20 21:58 Aspirin (ASA) 81 mg DAILY GT 03/05/20 09:00 04/19/20 08:59 03/05/20 08:51 Atorvastatin Calcium (Lipitor) 20 mg BEDTIME GT 03/04/20 21:00 06/02/20 20:59 03/04/20 21:46 Dextrose (Dextrose 50%) 25 ml Q30M PRN IV Hypoglycemia 03/04/20 20:45 06/02/20 20:44 03/04/20 23:07 Dextrose (Dextrose 50%) 50 ml Q30M PRN IV Hypoglycemia 03/04/20 20:45 06/02/20 20:44 Folic Acid (Folate) 1 mg DAILY GT 03/05/20 09:00 04/04/20 08:59 03/05/20 08:51 Heparin Sodium (Porcine) (Heparin 5000 units/ml) 5,000 units EVERY 12 HOURS SUBQ 03/04/20 21:00 04/18/20 20:59 03/05/20 08:54 Insulin Aspart (NovoLOG) Q6HR SUBQ 03/05/20 06:00 06/02/20 21:59 Lansoprazole (Prevacid) 30 mg DAILY NG 03/05/20 09:00 04/04/20 08:59 03/05/20 08:51 Piperacillin Sod/ Tazobactam Sod 3.375 gm/Sodium Chloride 110 ml @ 27.5 mls/hr Q12HR IVPB 03/04/20 22:00 03/11/20 21:59 03/05/20 08:53 Sodium Chloride 1,000 ml @ 75 mls/hr [id number] IV 03/05/20 10:30 04/04/20 10:29 Tamsulosin HCl (Flomax) 0.4 mg BEDTIME ORAL 03/04/20 21:00 04/03/20 20:59 03/04/20 21:45 Tramadol HCl (Ultram) 50 mg Q8H PRN ORAL Moderate to Severe Pain 03/04/20 21:00 03/11/20 20:59 Vancomycin HCl (Vanco pharmacy to dose) 1 ea DAILY PRN MISC Per rx protocol 03/04/20 20:45 04/03/20 20:44 Assessment/Plan Status: deteriorating Diagnosis [place] I: #Acute renal failure - likely ATN vs CRS 1 #hyperkalemia #Uremia #hypoxemic respiratory failure #Sepsis due to pneumonia #Leukocytosis #Acute on chronic CHF #afib with RVR #HTN #DM #Dementia #bipolar disorder - medical management of hyperkalemia with kayaxalate, insulin D50 - HD line placement today - spot dose of diuretics - monitor uop - sommers - strict I&Os - continue abx per ID - 2d echo - renal US - rate control per cardiology - asa - statin - BG control - monitor bp - FUll code Time spent 75 min > 50% on care coordination- Discussed with Dr. Alex at length Dean Reyes M.D. Mar 05, 2020 09:17
--- NOTE | 2020-03-05 09:27 | Consultation ---
History of Present Illness General Date patient seen: Mar 05, 2020 Time patient seen: 09:16 Chief Complaint: Dyspnea/Respdistress Present Illness HPI Pt [facility] d/t respiratory distress, satting at 86% on RA. Pt is AOx1, noted to be confuse at times, responsive to name. Pt's a FULL CODE Cardiology consulted for AFIB RVR and elevated troponin Allergies: Coded Allergies: No Known Allergies (Unverified , 12/09/13) Medication History Scheduled Allopurinol* (Allopurinol*), 100 MG ORAL DAILY, (Reported) Aspirin Ec* (Aspirin Ec*), 81 MG ORAL DAILY, (Reported) Cranberry Fruit (Cranberry), 450 MG PO DAILY, (Reported) Docusate Sodium* (Docusate Sodium*), 100 MG ORAL TWICE A DAY, (Reported) Escitalopram Oxalate* (Lexapro*), 10 MG ORAL DAILY, (Reported) Ferrous Sulfate* (Ferrous Sulfate*), 325 MG ORAL TWICE A DAY, (Reported) Fluticasone Propionate (Flovent Hfa), 1 PUFFS INH BID, (Reported) Folic Acid* (Folic Acid*), 1 MG ORAL DAILY, (Reported) Folic Acid/Vitamin B Comp W-C (Isabel-Bautista Tablet), 0.8 MG GT DAILY, (Reported) Insulin Glargine (Lantus), 23 UNITS SUBQ DAILY, (Reported) Ipratropium [place] (Ipratropium [place]), 2 SPR NS THREE TIMES A DAY, (Reported ) Lansoprazole* (Lansoprazole*), 30 MG GT DAILY Melatonin (Melatonin 5 Mg Tablet), 1 TAB ORAL BEDTIME, (Reported) Mirtazapine* (Mirtazapine*), 15 MG GT BEDTIME Nateglinide* (Starlix*), 60 MG ORAL THREE TIMES A DAY, (Reported) Pantoprazole* (Pantoprazole*), 40 MG ORAL ACBREAKAST, (Reported) Rosuvastatin Calcium* (Crestor*), 10 MG ORAL DAILY, (Reported) Tamsulosin HCl (Flomax), 0.4 MG ORAL BID Zinc Sulfate (Zinc Sulfate*), 220 MG ORAL DAILY, (Reported) Scheduled PRN Acetaminophen* (Acetaminophen 325MG Tablet*), 650 MG ORAL Q6H PRN for Moderate Pain (Pain Scale 4-6), (Reported) Acetaminophen* (Acetaminophen Extra Strength*), 1,000 MG ORAL Q6H PRN for Severe Pain (Pain Scale 7-10), (Reported) Acetaminophen* (Acetaminophen Extra Strength*), 500 MG ORAL Q6H PRN for Mild Pain/Temp > 100.5, (Reported) Ipratropium/Albuterol Sulfate (DuoNeb 0.5-3(2.5)mg/3ml), 3 ML HHN EVERY 6 HOURS PRN for Shortness of Breath, (Reported) Ondansetron* (Zofran*), 4 MG ORAL Q8HR PRN for Nausea & Vomiting, (Reported) Patient History Healthcare decision maker Resuscitation status Advanced Directive on File Review of Systems Constitutional: Reports: fever, malaise, weakness ENT: Reports: no symptoms Respiratory: Reports: shortness of breath Cardiovascular: Reports: palpitations Gastrointestinal: Reports: no symptoms Genitourinary: Reports: no symptoms Musculoskeletal: Reports: no symptoms Skin: Reports: no symptoms Psychiatric: Reports: no symptoms Neurological: Reports: no symptoms Endocrine: Reports: no symptoms Hematologic/Lymphatic: Reports: no symptoms Physical Exam General Appearance: lethargic, confused, agitated Lines, tubes and drains: peripheral HEENT: normocephalic, atraumatic Neck: non-tender, normal alignment, supple Respiratory/Chest: chest wall non-tender, lungs clear, normal breath sounds Cardiovascular/Chest: tachycardia, arrhythmia, irregularly irregular Abdomen: normal bowel sounds, non tender, soft Extremities: normal range of motion, non-tender, no calf tenderness Skin Exam: normal pigmentation, warm/dry Neurologic: abnormal CN, motor weakness, sensory deficit, disoriented Last 24 Hour Vital Signs Date Time Temp Pulse Resp B/P (MAP) Pulse Ox O2 Delivery O2 Flow Rate FiO2 03/05/20 08:00 95.4 93 26 126/70 (88) 98 03/05/20 07:50 92 03/05/20 04:00 Venturi Mask 15.0 Venturi Mask 15.0 03/05/20 04:00 91 03/05/20 04:00 15.0 03/05/20 04:00 96.9 91 30 133/60 (84) 93 03/05/20 00:00 15.0 03/05/20 00:00 96.8 108 22 108/67 (81) 98 03/05/20 00:00 Venturi Mask 15.0 Venturi Mask 15.0 03/04/20 23:56 Non-Rebreather 15.0 03/04/20 23:31 90 03/04/20 20:00 97.2 112 24 122/74 (90) 97 03/04/20 20:00 Non-Rebreather 15.0 Venturi Mask 15.0 03/04/20 19:46 91 03/04/20 19:13 99.1 87 21 119/56 100 Bi-pap 4.0 50 03/04/20 18:00 99.1 87 21 119/56 100 Bi-pap 03/04/20 16:50 101 26 94 Bi-Pap 50 03/04/20 16:47 101 26 94 50 03/04/20 16:00 99.1 27 133/71 99 Nasal Cannula 4.0 03/04/20 16:00 98 27 Nasal Cannula 4.0 03/04/20 15:45 99.1 102 27 133/71 (91) 99 Nasal Cannula 4.0 Intake and Output 03/04/20 03/05/20 19:00 07:00 Intake Total 770.0 ml Balance 770.0 ml Intake Free Water 60 ml IV Total 230.0 ml Tube Feeding 480 ml Laboratory Tests Test 03/04/20 15:50 03/04/20 22:50 03/05/20 03:27 White Blood Count 15.4 K/UL (4.8-10.8) H 20.8 K/UL (4.8-10.8) H Red Blood Count 2.70 M/UL (4.70-6.10) L 2.75 M/UL (4.70-6.10) L Hemoglobin 7.9 G/DL (14.2-18.0) L 8.3 G/DL (14.2-18.0) L Hematocrit 27.1 % (42.0-52.0) L 25.3 % (42.0-52.0) L Mean Corpuscular Volume 100 FL (80-99) H 92 FL (80-99) Mean Corpuscular Hemoglobin 29.4 PG (27.0-31.0) 30.4 PG (27.0-31.0) Mean Corpuscular Hemoglobin Concent 29.3 G/DL (32.0-36.0) L 33.0 G/DL (32.0-36.0) Red Cell Distribution Width 15.4 % (11.6-14.8) H 14.3 % (11.6-14.8) Platelet Count 167 K/UL (150-450) 177 K/UL (150-450) Mean Platelet Volume 8.0 FL (6.5-10.1) 6.3 FL (6.5-10.1) L Neutrophils (%) (Auto) % (45.0-75.0) % (45.0-75.0) Lymphocytes (%) (Auto) % (20.0-45.0) % (20.0-45.0) Monocytes (%) (Auto) % (1.0-10.0) % (1.0-10.0) Eosinophils (%) (Auto) % (0.0-3.0) % (0.0-3.0) Basophils (%) (Auto) % (0.0-2.0) % (0.0-2.0) Differential Total Cells Counted 100 Neutrophils % (Manual) 92 % (45-75) H Pending Lymphocytes % (Manual) 1 % (20-45) L Pending Monocytes % (Manual) 6 % (1-10) Eosinophils % (Manual) 0 % (0-3) Basophils % (Manual) 1 % (0-2) Band Neutrophils 0 % (0-8) Platelet Estimate Decreased L Pending Platelet Morphology Normal Pending Polychromasia 1+ Hypochromasia 1+ Anisocytosis 1+ Macrocytosis 1+ Urine Color Yellow Urine Appearance Clear Urine pH 5 (4.5-8.0) Urine Specific [place] 1.015 (1.005-1.035) Urine Protein 2+ (NEGATIVE) H Urine Glucose (UA) Negative (NEGATIVE) Urine Ketones Negative (NEGATIVE) Urine Blood Negative (NEGATIVE) Urine Nitrite Negative (NEGATIVE) Urine Bilirubin Negative (NEGATIVE) Urine Urobilinogen Normal MG/DL (0.0-1.0) Urine Leukocyte Esterase Negative (NEGATIVE) Urine RBC 0-2 /HPF (0 - 0) H Urine WBC 0-2 /HPF (0 - 0) Urine Squamous Epithelial Cells None /LPF (NONE/OCC) Urine Bacteria Occasional /HPF (NONE) Sodium Level 138 MMOL/L (136-145) 141 MMOL/L (136-145) Potassium Level 6.4 MMOL/L (3.5-5.1) *H 6.3 MMOL/L (3.5-5.1) *H Chloride Level 100 MMOL/L (98-107) 103 MMOL/L (98-107) Carbon Dioxide Level 29 MMOL/L (21-32) 30 MMOL/L (21-32) Anion Gap 9 mmol/L (5-15) 9 mmol/L (5-15) Blood Urea Nitrogen 108 mg/dL (7-18) H 116 mg/dL (7-18) H Creatinine 2.7 MG/DL (0.55-1.30) H 2.7 MG/DL (0.55-1.30) H Estimat Glomerular Filtration Rate 22.6 mL/min (>60) 22.6 mL/min (>60) Glucose Level 161 MG/DL (74-106) H 138 MG/DL (74-106) H Hemoglobin A1c 7.1 % (4.3-6.0) H Lactic Acid Level 1.10 mmol/L (0.4-2.0) Calcium Level 8.4 MG/DL (8.5-10.1) L 9.2 MG/DL (8.5-10.1) Total Bilirubin 0.5 MG/DL (0.2-1.0) 0.6 MG/DL (0.2-1.0) Aspartate Amino Transf (AST/SGOT) 29 U/L (15-37) 36 U/L (15-37) Alanine Aminotransferase (ALT/SGPT) 33 U/L (12-78) 32 U/L (12-78) Alkaline Phosphatase 146 U/L (46-116) H 142 U/L (46-116) H Total Creatine Kinase 81 U/L (26-308) Creatine Kinase MB 1.8 NG/ML (0.0-3.6) Creatine Kinase MB Relative Index 2.2 Troponin I 0.134 ng/mL (0.000-0.056) 0.106 ng/mL (0.000-0.056) Total Protein 7.2 G/DL (6.4-8.2) 7.2 G/DL (6.4-8.2) Albumin 2.9 G/DL (3.4-5.0) L 2.9 G/DL (3.4-5.0) L Globulin 4.3 g/dL 4.3 g/dL Albumin/Globulin Ratio 0.7 (1.0-2.7) L 0.7 (1.0-2.7) L Arterial Blood pH 7.301 (7.350-7.450) Arterial Blood Partial Pressure CO2 57.3 mmHg (35.0-45.0) *H Arterial Blood Partial Pressure O2 404.0 mmHg (75.0-100.0) H Arterial Blood HCO3 27.6 mmol/L (22.0-26.0) H Arterial Blood Oxygen Saturation 99.3 % (95-100) Arterial Blood Base Excess 0.7 (-2-2) Ghulam Test Positive Phosphorus Level 5.7 MG/DL (2.5-4.9) H Magnesium Level 3.4 MG/DL (1.8-2.4) H Pro-B-Type Natriuretic Peptide 76529 pg/mL (0-125) H Height (Feet): 5 Height (Inches): 8.00 Weight (Pounds): 201 Medications Current Medications Medications (Trade) Dose Ordered Sig/Breanna Route PRN Reason Start Time Stop Time Status Last Admin Dose Admin Acetaminophen (Tylenol) 650 mg Q4HR PRN GT temp >100.5 or mild pain 03/04/20 21:00 04/03/20 20:59 Albuterol/ Ipratropium (Combivent Respimat) 1 puff Q4HR PRN INH SOB 03/04/20 21:00 04/03/20 20:59 03/04/20 21:58 Aspirin (ASA) 81 mg DAILY GT 03/05/20 09:00 04/19/20 08:59 03/05/20 08:51 Atorvastatin Calcium (Lipitor) 20 mg BEDTIME GT 03/04/20 21:00 06/02/20 20:59 03/04/20 21:46 Dextrose (Dextrose 50%) 25 ml Q30M PRN IV Hypoglycemia 03/04/20 20:45 06/02/20 20:44 03/04/20 23:07 Dextrose (Dextrose 50%) 50 ml Q30M PRN IV Hypoglycemia 03/04/20 20:45 06/02/20 20:44 Folic Acid (Folate) 1 mg DAILY GT 03/05/20 09:00 04/04/20 08:59 03/05/20 08:51 Heparin Sodium (Porcine) (Heparin 5000 units/ml) 5,000 units EVERY 12 HOURS SUBQ 03/04/20 21:00 04/18/20 20:59 03/05/20 08:54 Insulin Aspart (NovoLOG) Q6HR SUBQ 03/05/20 06:00 06/02/20 21:59 Lansoprazole (Prevacid) 30 mg DAILY NG 03/05/20 09:00 04/04/20 08:59 03/05/20 08:51 Piperacillin Sod/ Tazobactam Sod 3.375 gm/Sodium Chloride 110 ml @ 27.5 mls/hr Q12HR IVPB 03/04/20 22:00 03/11/20 21:59 03/05/20 08:53 Sodium Chloride 1,000 ml @ 75 mls/hr [id number] IV 03/05/20 10:30 04/04/20 10:29 Tamsulosin HCl (Flomax) 0.4 mg BEDTIME ORAL 03/04/20 21:00 04/03/20 20:59 03/04/20 21:45 Tramadol HCl (Ultram) 50 mg Q8H PRN ORAL Moderate to Severe Pain 03/04/20 21:00 03/11/20 20:59 Vancomycin HCl (Vanco pharmacy to dose) 1 ea DAILY PRN MISC Per rx protocol 03/04/20 20:45 04/03/20 20:44 Assessment/Plan Assessment/Plan: ASSESSMENT/PLAN Aaron Eugene MD Mar 05, 2020 09:27
--- NOTE | 2020-03-05 11:17 | Consultation ---
Chaya Wilkerson CONSERVATION TECHNICIAN 03/05/20 1117: History of Present Illness General Date patient seen: Mar 05, 2020 Time patient seen: 09:30 Chief Complaint: Dyspnea/Respdistress Referring physician: Dr Frederick Reason for Consultation: LAYTON, KULWINDER Present Illness HPI 84 years old male, resident of snf facility, with past medical history of COPD,calcified pleural plaques due to asbestos exposure, chronic small left loculated pleural effusion, CHF with last EF 45%, paroxysmal atrial fibrillation, coronary artery disease, status post CABG, diabetes mellitus, hypertension dysphagia, feeding by G-tube, dementia, renal insufficiency, was brought to emergency department with shortness of breath and difficulty breathing. Patient was recently hospitalized at [facility]. Of note, patient was tested for COVID-19 at [facility] 02/12 and 02/13 and was negative at that time. Upon evaluation patient was hypoxic and required supplemental oxygen . Patient was tachypneic with respiratory rate 27 and slightly tachycardic with heart rate 102. Laboratory work-up revealed leukocytosis WBC 15.4, anemia with hemoglobin 7.9, hematocrit 27.1 , platelet count 167. Lymphopenia noted 1%. Urinalysis revealed +2 protein , but no evidence of urinary tract infection. Potassium 6.4. BUN 108, creatinine 2.7. Glucose 161. Lactic acid 1.1. AST 33 , ALT 146. Troponin 0.134 . EKG revealed atrial fibrillation . Albumin 2.9. In emergency department patient was treated for hyperkalemia , pancultured , received 1 L of fluid , started on empiric antibiotics and admitted for further management. Patient initially was placed on o2 via NC, then due to worsening respiratory distress, placed on NRM. ABG on NRM revealed pH 7.3 and pCO2 57, patient was subsequently placed on BiPP. Currently on VM 15 L. Chest x-ray revealed Bilateral alveolar densities, likely multifocal infiltrates. Cardiomegaly , partially obscured . Bilateral effusions. The bony thorax appeared unremarkable. Pulmonary consult was requested to assist in management of this patient. Allergies: Coded Allergies: No Known Allergies (Unverified , 12/09/13) Medication History Scheduled Allopurinol* (Allopurinol*), 100 MG ORAL DAILY, (Reported) Aspirin Ec* (Aspirin Ec*), 81 MG ORAL DAILY, (Reported) Cranberry Fruit (Cranberry), 450 MG PO DAILY, (Reported) Docusate Sodium* (Docusate Sodium*), 100 MG ORAL TWICE A DAY, (Reported) Escitalopram Oxalate* (Lexapro*), 10 MG ORAL DAILY, (Reported) Ferrous Sulfate* (Ferrous Sulfate*), 325 MG ORAL TWICE A DAY, (Reported) Fluticasone Propionate (Flovent Hfa), 1 PUFFS INH BID, (Reported) Folic Acid* (Folic Acid*), 1 MG ORAL DAILY, (Reported) Folic Acid/Vitamin B Comp W-C (Isabel-Bautista Tablet), 0.8 MG GT DAILY, (Reported) Insulin Glargine (Lantus), 23 UNITS SUBQ DAILY, (Reported) Ipratropium [place] (Ipratropium [place]), 2 SPR NS THREE TIMES A DAY, (Reported ) Lansoprazole* (Lansoprazole*), 30 MG GT DAILY Melatonin (Melatonin 5 Mg Tablet), 1 TAB ORAL BEDTIME, (Reported) Mirtazapine* (Mirtazapine*), 15 MG GT BEDTIME Nateglinide* (Starlix*), 60 MG ORAL THREE TIMES A DAY, (Reported) Pantoprazole* (Pantoprazole*), 40 MG ORAL ACBREAKAST, (Reported) Rosuvastatin Calcium* (Crestor*), 10 MG ORAL DAILY, (Reported) Tamsulosin HCl (Flomax), 0.4 MG ORAL BID Zinc Sulfate (Zinc Sulfate*), 220 MG ORAL DAILY, (Reported) Scheduled PRN Acetaminophen* (Acetaminophen 325MG Tablet*), 650 MG ORAL Q6H PRN for Moderate Pain (Pain Scale 4-6), (Reported) Acetaminophen* (Acetaminophen Extra Strength*), 1,000 MG ORAL Q6H PRN for Severe Pain (Pain Scale 7-10), (Reported) Acetaminophen* (Acetaminophen Extra Strength*), 500 MG ORAL Q6H PRN for Mild Pain/Temp > 100.5, (Reported) Ipratropium/Albuterol Sulfate (DuoNeb 0.5-3(2.5)mg/3ml), 3 ML HHN EVERY 6 HOURS PRN for Shortness of Breath, (Reported) Ondansetron* (Zofran*), 4 MG ORAL Q8HR PRN for Nausea & Vomiting, (Reported) Patient History Healthcare decision maker Resuscitation status Full code Advanced Directive on File Past Medical/Surgical History Past Medical/Surgical History: (1) Anemia (2) Renal failure (ARF), acute on chronic (3) Severe malnutrition (4) Diabetes (5) Atrial fibrillation (6) HTN (hypertension) (7) History of COPD (8) Gastrostomy status Review of Systems ROS Narrative unable to obtain due to patient's medical condition Physical Exam General Appearance: other - chronically ill looking bedridden male in NAD Lines, tubes and drains: peripheral HEENT: normocephalic, atraumatic, anicteric Neck: supple Respiratory/Chest: decreased breath sounds - at bases Cardiovascular/Chest: normal rate, arrhythmia - A fib on monitor Abdomen: normal bowel sounds, non tender, soft, feeding tube - G tube Extremities: normal capillary refill, no edema Skin Exam: other - sacral and R heel decub Musculoskeletal: atrophy - BLE Last 24 Hour Vital Signs Date Time Temp Pulse Resp B/P (MAP) Pulse Ox O2 Delivery O2 Flow Rate FiO2 03/05/20 08:00 95.4 93 26 126/70 (88) 98 03/05/20 07:50 92 03/05/20 04:00 Venturi Mask 15.0 Venturi Mask 15.0 03/05/20 04:00 91 03/05/20 04:00 15.0 03/05/20 04:00 96.9 91 30 133/60 (84) 93 03/05/20 00:00 15.0 03/05/20 00:00 96.8 108 22 108/67 (81) 98 03/05/20 00:00 Venturi Mask 15.0 Venturi Mask 15.0 03/04/20 23:56 Non-Rebreather 15.0 03/04/20 23:31 90 03/04/20 20:00 97.2 112 24 122/74 (90) 97 03/04/20 20:00 Non-Rebreather 15.0 Venturi Mask 15.0 03/04/20 19:46 91 03/04/20 19:13 99.1 87 21 119/56 100 Bi-pap 4.0 50 03/04/20 18:00 99.1 87 21 119/56 100 Bi-pap 03/04/20 16:50 101 26 94 Bi-Pap 50 6/2/20 16:47 101 26 94 50 03/04/20 16:00 99.1 27 133/71 99 Nasal Cannula 4.0 03/04/20 16:00 98 27 Nasal Cannula 4.0 03/04/20 15:45 99.1 102 27 133/71 (91) 99 Nasal Cannula 4.0 Intake and Output 03/04/20 03/05/20 19:00 07:00 Intake Total 770.0 ml Balance 770.0 ml Intake Free Water 60 ml IV Total 230.0 ml Tube Feeding 480 ml Laboratory Tests Test 03/04/20 15:50 03/04/20 22:50 03/05/20 03:27 03/05/20 10:26 White Blood Count 15.4 K/UL (4.8-10.8) H 20.8 K/UL (4.8-10.8) H Red Blood Count 2.70 M/UL (4.70-6.10) L 2.75 M/UL (4.70-6.10) L Hemoglobin 7.9 G/DL (14.2-18.0) L 8.3 G/DL (14.2-18.0) L Hematocrit 27.1 % (42.0-52.0) L 25.3 % (42.0-52.0) L Mean Corpuscular Volume 100 FL (80-99) H 92 FL (80-99) Mean Corpuscular Hemoglobin 29.4 PG (27.0-31.0) 30.4 PG (27.0-31.0) Mean Corpuscular Hemoglobin Concent 29.3 G/DL (32.0-36.0) L 33.0 G/DL (32.0-36.0) Red Cell Distribution Width 15.4 % (11.6-14.8) H 14.3 % (11.6-14.8) Platelet Count 167 K/UL (150-450) 177 K/UL (150-450) Mean Platelet Volume 8.0 FL (6.5-10.1) 6.3 FL (6.5-10.1) L Neutrophils (%) (Auto) % (45.0-75.0) % (45.0-75.0) Lymphocytes (%) (Auto) % (20.0-45.0) % (20.0-45.0) Monocytes (%) (Auto) % (1.0-10.0) % (1.0-10.0) Eosinophils (%) (Auto) % (0.0-3.0) % (0.0-3.0) Basophils (%) (Auto) % (0.0-2.0) % (0.0-2.0) Differential Total Cells Counted 100 100 Neutrophils % (Manual) 92 % (45-75) H 94 % (45-75) H Lymphocytes % (Manual) 1 % (20-45) L 2 % (20-45) L Monocytes % (Manual) 6 % (1-10) 4 % (1-10) Eosinophils % (Manual) 0 % (0-3) 0 % (0-3) Basophils % (Manual) 1 % (0-2) 0 % (0-2) Band Neutrophils 0 % (0-8) 0 % (0-8) Platelet Estimate Decreased L Adequate Platelet Morphology Normal Normal Polychromasia 1+ Hypochromasia 1+ 1+ Anisocytosis 1+ 1+ Macrocytosis 1+ Urine Color Yellow Urine Appearance Clear Urine pH 5 (4.5-8.0) Urine Specific [place] 1.015 (1.005-1.035) Urine Protein 2+ (NEGATIVE) H Urine Glucose (UA) Negative (NEGATIVE) Urine Ketones Negative (NEGATIVE) Urine Blood Negative (NEGATIVE) Urine Nitrite Negative (NEGATIVE) Urine Bilirubin Negative (NEGATIVE) Urine Urobilinogen Normal MG/DL (0.0-1.0) Urine Leukocyte Esterase Negative (NEGATIVE) Urine RBC 0-2 /HPF (0 - 0) H Urine WBC 0-2 /HPF (0 - 0) Urine Squamous Epithelial Cells None /LPF (NONE/OCC) Urine Bacteria Occasional /HPF (NONE) Sodium Level 138 MMOL/L (136-145) 141 MMOL/L (136-145) Potassium Level 6.4 MMOL/L (3.5-5.1) *H 6.3 MMOL/L (3.5-5.1) *H Chloride Level 100 MMOL/L (98-107) 103 MMOL/L (98-107) Carbon Dioxide Level 29 MMOL/L (21-32) 30 MMOL/L (21-32) Anion Gap 9 mmol/L (5-15) 9 mmol/L (5-15) Blood Urea Nitrogen 108 mg/dL (7-18) H 116 mg/dL (7-18) H Creatinine 2.7 MG/DL (0.55-1.30) H 2.7 MG/DL (0.55-1.30) H Estimat Glomerular Filtration Rate 22.6 mL/min (>60) 22.6 mL/min (>60) Glucose Level 161 MG/DL (74-106) H 138 MG/DL (74-106) H Hemoglobin A1c 7.1 % (4.3-6.0) H Lactic Acid Level 1.10 mmol/L (0.4-2.0) Calcium Level 8.4 MG/DL (8.5-10.1) L 9.2 MG/DL (8.5-10.1) Total Bilirubin 0.5 MG/DL (0.2-1.0) 0.6 MG/DL (0.2-1.0) Aspartate Amino Transf (AST/SGOT) 29 U/L (15-37) 36 U/L (15-37) Alanine Aminotransferase (ALT/SGPT) 33 U/L (12-78) 32 U/L (12-78) Alkaline Phosphatase 146 U/L (46-116) H 142 U/L (46-116) H Total Creatine Kinase 81 U/L (26-308) Creatine Kinase MB 1.8 NG/ML (0.0-3.6) Creatine Kinase MB Relative Index 2.2 Troponin I 0.134 ng/mL (0.000-0.056) 0.106 ng/mL (0.000-0.056) Total Protein 7.2 G/DL (6.4-8.2) 7.2 G/DL (6.4-8.2) Albumin 2.9 G/DL (3.4-5.0) L 2.9 G/DL (3.4-5.0) L Globulin 4.3 g/dL 4.3 g/dL Albumin/Globulin Ratio 0.7 (1.0-2.7) L 0.7 (1.0-2.7) L Arterial Blood pH 7.301 (7.350-7.450) Pending Arterial Blood Partial Pressure CO2 57.3 mmHg (35.0-45.0) *H Pending Arterial Blood Partial Pressure O2 404.0 mmHg (75.0-100.0) H Pending Arterial Blood HCO3 27.6 mmol/L (22.0-26.0) H Pending Arterial Blood Oxygen Saturation 99.3 % (95-100) Pending Arterial Blood Base Excess 0.7 (-2-2) Pending Ghulam Test Positive Pending Phosphorus Level 5.7 MG/DL (2.5-4.9) H Magnesium Level 3.4 MG/DL (1.8-2.4) H Pro-B-Type Natriuretic Peptide 71828 pg/mL (0-125) H Height (Feet): 5 Height (Inches): 8.00 Weight (Pounds): 201 Medications Current Medications Medications (Trade) Dose Ordered Sig/Breanna Route PRN Reason Start Time Stop Time Status Last Admin Dose Admin Acetaminophen (Tylenol) 650 mg Q4HR PRN GT temp >100.5 or mild pain 03/04/20 21:00 04/03/20 20:59 Albuterol/ Ipratropium (Combivent Respimat) 1 puff Q4HR PRN INH SOB 03/04/20 21:00 04/03/20 20:59 03/04/20 21:58 Aspirin (ASA) 81 mg DAILY GT 03/05/20 09:00 04/19/20 08:59 03/05/20 08:51 Atorvastatin Calcium (Lipitor) 20 mg BEDTIME GT 03/04/20 21:00 06/02/20 20:59 03/04/20 21:46 Dextrose (Dextrose 50%) 25 ml Q30M PRN IV Hypoglycemia 03/04/20 20:45 06/02/20 20:44 03/04/20 23:07 Dextrose (Dextrose 50%) 50 ml Q30M PRN IV Hypoglycemia 03/04/20 20:45 06/02/20 20:44 Folic Acid (Folate) 1 mg DAILY GT 03/05/20 09:00 04/04/20 08:59 03/05/20 08:51 Heparin Sodium (Porcine) (Heparin 5000 units/ml) 5,000 units EVERY 12 HOURS SUBQ 03/04/20 21:00 04/18/20 20:59 03/05/20 08:54 Insulin Aspart (NovoLOG) Q6HR SUBQ 03/05/20 06:00 06/02/20 21:59 Lansoprazole (Prevacid) 30 mg DAILY NG 03/05/20 09:00 04/04/20 08:59 03/05/20 08:51 Metoprolol Succinate (Toprol XL) 100 mg DAILY ORAL 03/06/20 09:00 06/04/20 08:59 Piperacillin Sod/ Tazobactam Sod 3.375 gm/Sodium Chloride 110 ml @ 27.5 mls/hr Q12HR IVPB 03/04/20 22:00 03/11/20 21:59 03/05/20 08:53 Tamsulosin HCl (Flomax) 0.4 mg BEDTIME ORAL 03/04/20 21:00 04/03/20 20:59 03/04/20 21:45 Tramadol HCl (Ultram) 50 mg Q8H PRN ORAL Moderate to Severe Pain 03/04/20 21:00 03/11/20 20:59 Vancomycin HCl (Vanco pharmacy to dose) 1 ea DAILY PRN MISC Per rx protocol 03/04/20 20:45 04/03/20 20:44 Warfarin Sodium (Coumadin per pharmacy) 1 ea DAILY PRN MISC Per rx protocol 03/05/20 09:30 04/04/20 09:29 UNV Assessment/Plan Assessment/Plan: ASSESSMENT PNA Probably sepsis Acute hypoxemic respiratory failure, requiring high O2 flow Obstructive lung disease/COPD Suspected COVID 19 infection Hx of calcified pleural plaques due to asbestos exposure Chronic small left loculated pleural effusion PAF Elevated troponin, Possible NSTEMI CHF with mild systolic dysfunction, last ECHO with EF 45% CAD with hx of CABG Dysphagia, feeding by G tube Toxic metabolic encephalopathy Acute on chronic renal failure Anemia Hyperkalemia Dementia DM PLAN OF CARE JAYRO titrate O2 to keep sat above 90% pulmonary toilet with inhaler fir now until ruled out for COVID 19 fup with CXR ABG prn empiric abx fup with cx isolation for now, fup with SARS COV2 by PCR DVT prophylaxis trend troponin cardio on board on a/PLT with ASA, beta blockage and statin last ECHO per records with EF 45% -mild systolic dysfunction diuresis on hold monitor volumes and cardiorenal parameters rate overall controlled with BB, started on Coumadin as per cardio hold diuretics, monitor renal paramerts, lytes, correct lytes as needed per nephro nephro on board try to avoid nephrotoxics aspiration precautions, G tube feeding monitor HH with goal to keep Hgb above 7 GI prophylaxis BS management with SSI , [id number] wound care case discussed and evaluated by supervising physician Shantanu Webster MD 03/05/20 1123: History of Present Illness General Chief Complaint: Dyspnea/Respdistress Present Illness Allergies: Coded Allergies: No Known Allergies (Unverified , 12/09/13) Medication History Scheduled Allopurinol* (Allopurinol*), 100 MG ORAL DAILY, (Reported) Aspirin Ec* (Aspirin Ec*), 81 MG ORAL DAILY, (Reported) Cranberry Fruit (Cranberry), 450 MG PO DAILY, (Reported) Docusate Sodium* (Docusate Sodium*), 100 MG ORAL TWICE A DAY, (Reported) Escitalopram Oxalate* (Lexapro*), 10 MG ORAL DAILY, (Reported) Ferrous Sulfate* (Ferrous Sulfate*), 325 MG ORAL TWICE A DAY, (Reported) Fluticasone Propionate (Flovent Hfa), 1 PUFFS INH BID, (Reported) Folic Acid* (Folic Acid*), 1 MG ORAL DAILY, (Reported) Folic Acid/Vitamin B Comp W-C (Isabel-Bautista Tablet), 0.8 MG GT DAILY, (Reported) Insulin Glargine (Lantus), 23 UNITS SUBQ DAILY, (Reported) Ipratropium [place] (Ipratropium [place]), 2 SPR NS THREE TIMES A DAY, (Reported ) Lansoprazole* (Lansoprazole*), 30 MG GT DAILY Melatonin (Melatonin 5 Mg Tablet), 1 TAB ORAL BEDTIME, (Reported) Mirtazapine* (Mirtazapine*), 15 MG GT BEDTIME Nateglinide* (Starlix*), 60 MG ORAL THREE TIMES A DAY, (Reported) Pantoprazole* (Pantoprazole*), 40 MG ORAL ACBREAKAST, (Reported) Rosuvastatin Calcium* (Crestor*), 10 MG ORAL DAILY, (Reported) Tamsulosin HCl (Flomax), 0.4 MG ORAL BID Zinc Sulfate (Zinc Sulfate*), 220 MG ORAL DAILY, (Reported) Scheduled PRN Acetaminophen* (Acetaminophen 325MG Tablet*), 650 MG ORAL Q6H PRN for Moderate Pain (Pain Scale 4-6), (Reported) Acetaminophen* (Acetaminophen Extra Strength*), 1,000 MG ORAL Q6H PRN for Severe Pain (Pain Scale 7-10), (Reported) Acetaminophen* (Acetaminophen Extra Strength*), 500 MG ORAL Q6H PRN for Mild Pain/Temp > 100.5, (Reported) Ipratropium/Albuterol Sulfate (DuoNeb 0.5-3(2.5)mg/3ml), 3 ML HHN EVERY 6 HOURS PRN for Shortness of Breath, (Reported) Ondansetron* (Zofran*), 4 MG ORAL Q8HR PRN for Nausea & Vomiting, (Reported) Assessment/Plan Assessment/Plan: Patient seen and examined with CONSERVATION TECHNICIAN. Agree with above A&P as it reflects our joint deliberations. Doing better, gas exchange adequate on VM,continue BSAbx, R/O COVID, PRN BiPAP, HFA via spacer, cautiously resume TF's, DVT Px: A/C, monitor volumes and renal function, F/U cards and renal recs, FC - continue to discuss GOC D/W RN @ bedside Chaya Wilkerson NP Mar 05, 2020 11:17 Shantanu Webster MD Mar 05, 2020 11:23
[2020-03-05 11:18] LABS: ANION GAP 10 mmol/L (5-15); BLOOD UREA NITROGEN 119 mg/dL (7-18); CALCIUM 9.1 MG/DL (8.5-10.1); CARBON DIOXIDE 28 MMOL/L (21-32); CHLORIDE 104 MMOL/L (98-107); CREATININE 2.9 MG/DL (0.55-1.30); SODIUM 141 MMOL/L (136-145)
[2020-03-05 11:30] LABS: POTASSIUM 6.3 MMOL/L (3.5-5.1)
[2020-03-05 12:00] VITALS: BP 129/51
[2020-03-05] MEDS ORDERED: Sodium Polystyrene Sulfonate 15gm Powder ORAL SCH ×2 (13:30→21:00)
[2020-03-05] MEDS ORDERED: Insulin Human Regular 100units/ml 3ml IV ONE (14:00)
[2020-03-05] MEDS ORDERED: Calcium Gluconate 10% 1 GM in NS 110 ML IVPB ONE (14:30)
[2020-03-05 15:23] LABS: INR 1.2 (0.9-1.1)
[2020-03-05 15:36] LABS: APPEARANCE,URINE CLEAR; BILIRUBIN, URINE NEGATIVE (NEGATIVE); GLUCOSE, URINE (UA) NEGATIVE (NEGATIVE); KETONES,URINE NEGATIVE (NEGATIVE); LEUKOCYTE ESTERASE ,URINE NEGATIVE (NEGATIVE); NITRITE,URINE NEGATIVE (NEGATIVE); PH,URINE 5 (4.5-8.0); PROTEIN,URINE 2+ (NEGATIVE); UROBILINOGEN,URINE NORMAL MG/DL (0.0-1.0)
[2020-03-05 15:39] LABS: COLOR,URINE YELLOW
[2020-03-05 16:00] VITALS: BP 127/65
[2020-03-05] MEDS ORDERED: Warfarin Sodium 2.5mg ORAL SCH (17:00)
[2020-03-05 20:00] VITALS: BP 128/65
[2020-03-05 20:27] LABS: ALANINE AMINOTRANSFERASE 59 U/L (12-78); ALBUMIN 2.8 G/DL (3.4-5.0); ALBUMIN/GLOBULIN RATIO 0.6 (1.0-2.7); ALKALINE PHOSPHATASE 151 U/L (46-116); ANION GAP 13 mmol/L (5-15); ASPARTATE AMINO TRANSFERASE 59 U/L (15-37); BILIRUBIN,TOTAL 0.6 MG/DL (0.2-1.0); BLOOD UREA NITROGEN 122 mg/dL (7-18); CARBON DIOXIDE 27 MMOL/L (21-32); CHLORIDE 103 MMOL/L (98-107); CREATININE 3.1 MG/DL (0.55-1.30); PHOSPHORUS 6.4 MG/DL (2.5-4.9); POTASSIUM 5.9 MMOL/L (3.5-5.1); SODIUM 143 MMOL/L (136-145)
--- NOTE | 2020-03-05 20:39 | Consultation ---
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 after identified to have significant desaturation respiratory insufficiency nursing facility. On admission identified to have significant leukocytosis and renal insufficiency with hyperkalemia. Surgery called to evaluate and assist with care. Patient seen, patient evaluated, chart reviewed. Patient is awake and alert but unable to participate in examination. Unable to provide history given baseline medical condition. Allergies: Coded Allergies: No Known Allergies (Unverified , 12/09/13) COVID-19 Screening Contact w/high risk pt: Yes Recent Travel to affected area: No Experienced COVID-19 symptoms?: Yes COVID-19 symptoms experienced: Shortness of Breath, Cough Medication History Scheduled Allopurinol* (Allopurinol*), 100 MG ORAL DAILY, (Reported) Aspirin Ec* (Aspirin Ec*), 81 MG ORAL DAILY, (Reported) Cranberry Fruit (Cranberry), 450 MG PO DAILY, (Reported) Docusate Sodium* (Docusate Sodium*), 100 MG ORAL TWICE A DAY, (Reported) Escitalopram Oxalate* (Lexapro*), 10 MG ORAL DAILY, (Reported) Ferrous Sulfate* (Ferrous Sulfate*), 325 MG ORAL TWICE A DAY, (Reported) Fluticasone Propionate (Flovent Hfa), 1 PUFFS INH BID, (Reported) Folic Acid* (Folic Acid*), 1 MG ORAL DAILY, (Reported) Folic Acid/Vitamin B Comp W-C (Isabel-Bautista Tablet), 0.8 MG GT DAILY, (Reported) Insulin Glargine (Lantus), 23 UNITS SUBQ DAILY, (Reported) Ipratropium Volin (Ipratropium Volin), 2 SPR NS THREE TIMES A DAY, (Reported ) Lansoprazole* (Lansoprazole*), 30 MG GT DAILY Melatonin (Melatonin 5 Mg Tablet), 1 TAB ORAL BEDTIME, (Reported) Mirtazapine* (Mirtazapine*), 15 MG GT BEDTIME Nateglinide* (Starlix*), 60 MG ORAL THREE TIMES A DAY, (Reported) Pantoprazole* (Pantoprazole*), 40 MG ORAL ACBREAKAST, (Reported) Rosuvastatin Calcium* (Crestor*), 10 MG ORAL DAILY, (Reported) Tamsulosin HCl (Flomax), 0.4 MG ORAL BID Zinc Sulfate (Zinc Sulfate*), 220 MG ORAL DAILY, (Reported) Scheduled PRN Acetaminophen* (Acetaminophen 325MG Tablet*), 650 MG ORAL Q6H PRN for Moderate Pain (Pain Scale 4-6), (Reported) Acetaminophen* (Acetaminophen Extra Strength*), 1,000 MG ORAL Q6H PRN for Severe Pain (Pain Scale 7-10), (Reported) Acetaminophen* (Acetaminophen Extra Strength*), 500 MG ORAL Q6H PRN for Mild Pain/Temp > 100.5, (Reported) Ipratropium/Albuterol Sulfate (DuoNeb 0.5-3(2.5)mg/3ml), 3 ML HHN EVERY 6 HOURS PRN for Shortness of Breath, (Reported) Ondansetron* (Zofran*), 4 MG ORAL Q8HR PRN for Nausea & Vomiting, (Reported) Patient History Limited by: medical condition History Provided By: Medical Record, PMD Healthcare decision maker Resuscitation status Advanced Directive on File Past Medical/Surgical History Past Medical/Surgical History: (1) KELLEN (acute kidney injury) (2) Dehydration (3) Encounter for PEG (percutaneous endoscopic gastrostomy) (4) Suspected 2019 novel coronavirus infection (5) Anemia (6) Severe malnutrition (7) Renal failure (ARF), acute on chronic (8) Pancreatitis (9) Dyspnea (10) Bronchitis (11) Acute renal failure (12) Depression (13) Diabetes (14) Pneumonia (15) Acute respiratory failure (16) Atrial fibrillation (17) CAD (coronary artery disease) (18) Respiratory insufficiency (19) HTN (hypertension) (20) Metabolic encephalopathy (21) Sepsis (22) Acute on chronic renal failure (23) History of COPD (24) HAP (hospital-acquired pneumonia) Review of Systems Review of Symptoms General ROS: no weight loss or fever Psychological ROS: no depression or mood changes, no memory loss Ophthalmic ROS: no visual changes or eye irritation ENT ROS: no nasal congestion, hearing loss, dizziness Allergy and Immunology ROS: no allergic symptoms or urticaria Hematological and Lymphatic ROS: no swollen glands, unusual bleeding or bruising Endocrine ROS: no polyuria, polydipsia, weight changes, temperature intolerance Respiratory ROS: no cough, shortness of breath, or wheezing Cardiovascular ROS: no chest pain or dyspnea on exertion Gastrointestinal ROS: denies abdominal pain, bright red blood in stool. Musculoskeletal ROS: no myalgias or arthralgias Neurological ROS: no TIA or stroke symptoms Dermatological ROS: no new or changing skin lesions, rashes or pruritis Physical Exam Physical Exam General appearance: alert, cooperative, no distress, appears stated age Head: Normocephalic, without obvious abnormality, atraumatic Eyes: conjunctivae/corneas clear. PERRL, EOM's intact. Fundi benign Throat: Lips, mucosa, and tongue normal. Teeth and gums normal Neck: supple, symmetrical, trachea midline, no adenopathy, thyroid: not enlarged, symmetric, no tenderness/mass/nodules, no carotid bruit and no JVD Lungs: clear to auscultation bilaterally Heart: regular rate and rhythm, S1, S2 normal, no murmur, click, rub or gallop Abdomen: soft, non-tender. Bowel sounds normal. No masses, no organomegaly Extremities: extremities normal, atraumatic, no cyanosis or edema Pulses: 2+ and symmetric Skin: Skin color, texture, turgor normal. No rashes or lesions Neurologic: Grossly normal Last 24 Hour Vital Signs Date Time Temp Pulse Resp B/P (MAP) Pulse Ox O2 Delivery O2 Flow Rate FiO2 03/05/20 16:00 Venturi Mask 10.0 Venturi Mask 10.0 03/05/20 16:00 96.9 108 29 127/65 (85) 100 03/05/20 16:00 10.0 03/05/20 15:16 103 03/05/20 12:00 96.8 93 35 129/51 (77) 100 03/05/20 12:00 10.0 03/05/20 12:00 Venturi Mask 10.0 Venturi Mask 10.0 03/05/20 11:35 96 03/05/20 08:00 10.0 03/05/20 08:00 95.4 93 26 126/70 (88) 98 03/05/20 08:00 Venturi Mask 10.0 Venturi Mask 10.0 03/05/20 07:50 92 03/05/20 04:00 Venturi Mask 15.0 Venturi Mask 15.0 03/05/20 04:00 91 03/05/20 04:00 15.0 03/05/20 04:00 96.9 91 30 133/60 (84) 93 03/05/20 00:00 15.0 03/05/20 00:00 96.8 108 22 108/67 (81) 98 03/05/20 00:00 Venturi Mask 15.0 Venturi Mask 15.0 03/04/20 23:56 Non-Rebreather 15.0 03/04/20 23:31 90 Intake and Output 03/04/20 03/05/20 19:00 07:00 Intake Total 770.0 ml Balance 770.0 ml Intake Free Water 60 ml IV Total 230.0 ml Tube Feeding 480 ml Laboratory Tests Test 03/04/20 22:50 03/05/20 03:27 03/05/20 10:26 03/05/20 10:50 Arterial Blood pH 7.301 (7.350-7.450) 7.338 (7.350-7.450) Arterial Blood Partial Pressure CO2 57.3 mmHg (35.0-45.0) *H 49.8 mmHg (35.0-45.0) H Arterial Blood Partial Pressure O2 404.0 mmHg (75.0-100.0) H 104.9 mmHg (75.0-100.0) H Arterial Blood HCO3 27.6 mmol/L (22.0-26.0) H 26.1 mmol/L (22.0-26.0) H Arterial Blood Oxygen Saturation 99.3 % (95-100) 97.5 % (95-100) Arterial Blood Base Excess 0.7 (-2-2) 0.1 (-2-2) Ghulam Test Positive Positive White Blood Count 20.8 K/UL (4.8-10.8) H Red Blood Count 2.75 M/UL (4.70-6.10) L Hemoglobin 8.3 G/DL (14.2-18.0) L Hematocrit 25.3 % (42.0-52.0) L Mean Corpuscular Volume 92 FL (80-99) Mean Corpuscular Hemoglobin 30.4 PG (27.0-31.0) Mean Corpuscular Hemoglobin Concent 33.0 G/DL (32.0-36.0) Red Cell Distribution Width 14.3 % (11.6-14.8) Platelet Count 177 K/UL (150-450) Mean Platelet Volume 6.3 FL (6.5-10.1) L Neutrophils (%) (Auto) % (45.0-75.0) Lymphocytes (%) (Auto) % (20.0-45.0) Monocytes (%) (Auto) % (1.0-10.0) Eosinophils (%) (Auto) % (0.0-3.0) Basophils (%) (Auto) % (0.0-2.0) Differential Total Cells Counted 100 Neutrophils % (Manual) 94 % (45-75) H Lymphocytes % (Manual) 2 % (20-45) L Monocytes % (Manual) 4 % (1-10) Eosinophils % (Manual) 0 % (0-3) Basophils % (Manual) 0 % (0-2) Band Neutrophils 0 % (0-8) Platelet Estimate Adequate Platelet Morphology Normal Hypochromasia 1+ Anisocytosis 1+ Sodium Level 141 MMOL/L (136-145) 141 MMOL/L (136-145) Potassium Level 6.3 MMOL/L (3.5-5.1) *H 6.3 MMOL/L (3.5-5.1) *H Chloride Level 103 MMOL/L (98-107) 104 MMOL/L (98-107) Carbon Dioxide Level 30 MMOL/L (21-32) 28 MMOL/L (21-32) Anion Gap 9 mmol/L (5-15) 10 mmol/L (5-15) Blood Urea Nitrogen 116 mg/dL (7-18) H 119 mg/dL (7-18) H Creatinine 2.7 MG/DL (0.55-1.30) H 2.9 MG/DL (0.55-1.30) H Estimat Glomerular Filtration Rate 22.6 mL/min (>60) 20.8 mL/min (>60) Glucose Level 138 MG/DL (74-106) H 83 MG/DL (74-106) Calcium Level 9.2 MG/DL (8.5-10.1) 9.1 MG/DL (8.5-10.1) Phosphorus Level 5.7 MG/DL (2.5-4.9) H Magnesium Level 3.4 MG/DL (1.8-2.4) H Total Bilirubin 0.6 MG/DL (0.2-1.0) Aspartate Amino Transf (AST/SGOT) 36 U/L (15-37) Alanine Aminotransferase (ALT/SGPT) 32 U/L (12-78) Alkaline Phosphatase 142 U/L (46-116) H Troponin I 0.106 ng/mL (0.000-0.056) Pro-B-Type Natriuretic Peptide 16712 pg/mL (0-125) H Total Protein 7.2 G/DL (6.4-8.2) Albumin 2.9 G/DL (3.4-5.0) L Globulin 4.3 g/dL Albumin/Globulin Ratio 0.7 (1.0-2.7) L Test 03/05/20 14:33 03/05/20 14:50 03/05/20 18:10 Urine Color Yellow Urine Appearance Clear Urine pH 5 (4.5-8.0) Urine Specific [place] 1.020 (1.005-1.035) Urine Protein 2+ (NEGATIVE) H Urine Glucose (UA) Negative (NEGATIVE) Urine Ketones Negative (NEGATIVE) Urine Blood Negative (NEGATIVE) Urine Nitrite Negative (NEGATIVE) Urine Bilirubin Negative (NEGATIVE) Urine Urobilinogen Normal MG/DL (0.0-1.0) Urine Leukocyte Esterase Negative (NEGATIVE) Urine RBC 0 /HPF (0 - 0) Urine WBC 0-2 /HPF (0 - 0) Urine Squamous Epithelial Cells None /LPF (NONE/OCC) Urine Bacteria Few /HPF (NONE) Urine Mucus Few /LPF (NONE/OCC) H Urine Random Sodium < 20 mmol/L (20-110) L Urine Creatinine 105.1 MG/DL (30.0-125.0) Prothrombin Time 13.0 SEC (9.30-11.50) H Prothromb Time International Ratio 1.2 (0.9-1.1) H Sodium Level 143 MMOL/L (136-145) Potassium Level 5.9 MMOL/L (3.5-5.1) H Chloride Level 103 MMOL/L (98-107) Carbon Dioxide Level 27 MMOL/L (21-32) Anion Gap 13 mmol/L (5-15) Blood Urea Nitrogen 122 mg/dL (7-18) H Creatinine 3.1 MG/DL (0.55-1.30) H Estimat Glomerular Filtration Rate 19.2 mL/min (>60) Glucose Level 175 MG/DL (74-106) H Calcium Level 9.0 MG/DL (8.5-10.1) Phosphorus Level 6.4 MG/DL (2.5-4.9) H Magnesium Level 3.7 MG/DL (1.8-2.4) H Total Bilirubin 0.6 MG/DL (0.2-1.0) Aspartate Amino Transf (AST/SGOT) 59 U/L (15-37) H Alanine Aminotransferase (ALT/SGPT) 59 U/L (12-78) Alkaline Phosphatase 151 U/L (46-116) H Total Protein 7.3 G/DL (6.4-8.2) Albumin 2.8 G/DL (3.4-5.0) L Globulin 4.5 g/dL Albumin/Globulin Ratio 0.6 (1.0-2.7) L Random Vancomycin Level 13.8 ug/mL Height (Feet): 5 Height (Inches): 8.00 Weight (Pounds): 201 Medications Current Medications Medications (Trade) Dose Ordered Sig/Breanna Route PRN Reason Start Time Stop Time Status Last Admin Dose Admin Acetaminophen (Tylenol) 650 mg Q4HR PRN GT temp >100.5 or mild pain 03/04/20 21:00 04/03/20 20:59 Albuterol/ Ipratropium (Combivent Respimat) 1 puff Q4HR PRN INH SOB 03/04/20 21:00 04/03/20 20:59 03/04/20 21:58 Aspirin (ASA) 81 mg DAILY GT 03/05/20 09:00 04/19/20 08:59 03/05/20 08:51 Atorvastatin Calcium (Lipitor) 20 mg BEDTIME GT 03/04/20 21:00 06/02/20 20:59 03/04/20 21:46 Dextrose (Dextrose 50%) 25 ml Q30M PRN IV Hypoglycemia 03/04/20 20:45 06/02/20 20:44 03/05/20 12:38 Dextrose (Dextrose 50%) 50 ml Q30M PRN IV Hypoglycemia 03/04/20 20:45 06/02/20 20:44 Doxycycline Monohydrate (Doxycycline Monohydrate) 100 mg EVERY 12 HOURS ORAL 03/05/20 21:00 03/12/20 20:59 Folic Acid (Folate) 1 mg DAILY GT 03/05/20 09:00 04/04/20 08:59 03/05/20 08:51 Heparin Sodium (Porcine) (Heparin 5000 units/ml) 5,000 units EVERY 12 HOURS SUBQ 03/04/20 21:00 04/18/20 20:59 03/05/20 08:54 Insulin Aspart (NovoLOG) Q6HR SUBQ 03/05/20 06:00 06/02/20 21:59 03/05/20 18:06 Lansoprazole (Prevacid) 30 mg DAILY NG 03/05/20 09:00 04/04/20 08:59 03/05/20 08:51 Metoprolol Succinate (Toprol XL) 100 mg DAILY ORAL 03/06/20 09:00 06/04/20 08:59 Piperacillin Sod/ Tazobactam Sod 3.375 gm/Sodium Chloride 110 ml @ 27.5 mls/hr Q12HR IVPB 03/04/20 22:00 03/11/20 21:59 03/05/20 08:53 Tamsulosin HCl (Flomax) 0.4 mg BEDTIME ORAL 03/04/20 21:00 04/03/20 20:59 03/04/20 21:45 Tramadol HCl (Ultram) 50 mg Q8H PRN ORAL Moderate to Severe Pain 03/04/20 21:00 03/11/20 20:59 Vancomycin HCl (Vanco pharmacy to dose) 1 ea DAILY PRN MISC Per rx protocol 03/04/20 20:45 04/03/20 20:44 Warfarin Sodium (Coumadin per pharmacy) 1 ea DAILY PRN MISC Per rx protocol 03/05/20 09:30 04/04/20 09:29 Assessment/Plan Problem List: (1) Suspected 2019 novel coronavirus infection Assessment & Plan: A single one view chest is obtained. Vascular markings are indistinct. Bilateral alveolar densities noted likely multifocal infiltrates. Cardiomegaly is partially obscured . There are bilateral effusions. The bony thorax appear unremarkable. IMPRESSION: Bilateral infiltrates and effusions. ICD Codes: Z20.828 - Contact with and (suspected) exposure to other viral communicable diseases SNOMED: 935865109 (2) Anemia ICD Codes: D64.9 - Anemia, unspecified SNOMED: 682804406 (3) Severe malnutrition Assessment & Plan: Pt presented on admission with partially opened Sacral DTPI. Base of wound is maroon an indurated with open area that is viable.(L) 8.5cm x (W)7cm..Base of scrotum is erythematous. L Heel is boggy with non-blanchable erythema. Unstageable Pressure injury R Heel (L)3cm x (W)3.5cm. Base of wound is 100% necrotic. Marginal erythema along borders. Periwound is boggy with non- Blanching erythema. No odor noted. Tx.Plan: Apply Moisture Barrier Paste to Sacrum. Cover with Optifoam drsg. Change every 3 days and prn. Apply Betadine to R heel. Cover with Optifoam drsg. Change every 3 days and prn. Apply Cavilon Skin Barrier to L Heel. Cover with Optifoam drsg. Change every 7 days and prn. Reposition at least every 2 hours or as tolerated. Off-load heels with Pillow. Place Pillow between knees. APM/JANAK Mattress overlay. ICD Codes: E43 - Unspecified severe protein-calorie malnutrition SNOMED: 92914670 (4) Renal failure (ARF), acute on chronic ICD Codes: N17.9 - Acute kidney failure, unspecified; N18.9 - Chronic kidney disease, unspecified SNOMED: 828855636 (5) Dehydration ICD Codes: E86.0 - Dehydration SNOMED: 55460942 (6) Encounter for PEG (percutaneous endoscopic gastrostomy) ICD Codes: Z43.1 - Encounter for attention to gastrostomy SNOMED: 554681736, 012888776 (7) KELLEN (acute kidney injury) ICD Codes: N17.9 - Acute kidney failure, unspecified SNOMED: 9208850, 97620307 (8) Pancreatitis (9) Dyspnea ICD Codes: R06.00 - Dyspnea SNOMED: 802052694 (10) Bronchitis ICD Codes: J40 - Bronchitis SNOMED: 96530660 (11) Acute renal failure ICD Codes: N17.9 - Acute renal failure SNOMED: 34790303 (12) Depression ICD Codes: F32.9 - Depression SNOMED: 96239181 (13) Diabetes ICD Codes: E11.9 - Diabetes SNOMED: 60581800 (14) Pneumonia ICD Codes: J18.9 - Pneumonia SNOMED: 961596731 (15) Acute respiratory failure ICD Codes: J96.00 - Acute respiratory failure, unspecified whether with hypoxia or hypercapnia SNOMED: 03753175 (16) Atrial fibrillation ICD Codes: I48.91 - Unspecified atrial fibrillation SNOMED: 87505062 (17) CAD (coronary artery disease) ICD Codes: I25.10 - Atherosclerotic heart disease of enterprise coronary artery without angina pectoris SNOMED: 16232073 (18) Respiratory insufficiency ICD Codes: R06.89 - Respiratory insufficiency SNOMED: 722404862 (19) HTN (hypertension) ICD Codes: I10 - HTN (hypertension) SNOMED: 66095514 (20) Metabolic encephalopathy ICD Codes: G93.41 - Metabolic encephalopathy SNOMED: 48088951 (21) Acute on chronic renal failure ICD Codes: N17.9 - Acute kidney failure, unspecified; N18.9 - Chronic kidney disease, unspecified SNOMED: 144178936 (22) Sepsis Assessment & Plan: Leukocytosis, anemia, sepsis, abnormal labs. Renal insufficiency. Imaging with bilateral infiltrates. Respiratory insufficiency. On supplemental oxygen. COVID testing pending Complete examination performed undergoing extensive work-up for etiology. No acute surgical invention planned at this time. Follow recommendations thank you for let me participate patient's care Continue to biotics per infectious disease ICD Codes: A41.9 - Sepsis, unspecified organism SNOMED: 89424347 (23) History of COPD ICD Codes: Z87.09 - Personal history of other diseases of the respiratory system SNOMED: 527268080 (24) HAP (hospital-acquired pneumonia) ICD Codes: J18.9 - Pneumonia, unspecified organism; Y95 - Nosocomial condition SNOMED: 701853854 Tashi Garcia Mar 05, 2020 20:38
[2020-03-05] MEDS: Doxycycline Monohydrate 100mg ORAL SCH (21:07)
[2020-03-05] MEDS: Furosemide 40mg tab ORAL SCH (21:07)
[2020-03-05] MEDS: Tamsulosin 0.4mg cap ORAL SCH (21:08)
[2020-03-05] MEDS: Atorvastatin 20mg tab GT SCH (21:08)
[2020-03-05] MEDS ORDERED: Insulin Human Regular 100units/ml 3ml IV SCH (21:30)
--- NOTE | 2020-03-05 22:19 | Infectious Diseases Prog Note ---
Assessment/Plan Assessment/Plan Full consult dictated: A) 1) pna, sepsis, leukocytosis, rule out covid-19 infection 2) pmh noted 3) allergies - nkda P) 1) zosyn, doxycycline and vancomycin 2) check cultures, labs and chest x-ray 3) f/u on covid-19 pcr testing 4) thank you Subjective Allergies: Coded Allergies: No Known Allergies (Unverified , 12/09/13) Objective Vital Signs Last 24 Hour Vital Signs Date Time Temp Pulse Resp B/P (MAP) Pulse Ox O2 Delivery O2 Flow Rate FiO2 03/05/20 19:05 102 03/05/20 16:00 Venturi Mask 10.0 Venturi Mask 10.0 03/05/20 16:00 96.9 108 29 127/65 (85) 100 03/05/20 16:00 10.0 03/05/20 15:16 103 03/05/20 12:00 96.8 93 35 129/51 (77) 100 03/05/20 12:00 10.0 03/05/20 12:00 Venturi Mask 10.0 Venturi Mask 10.0 03/05/20 11:35 96 03/05/20 08:00 10.0 03/05/20 08:00 95.4 93 26 126/70 (88) 98 03/05/20 08:00 Venturi Mask 10.0 Venturi Mask 10.0 03/05/20 07:50 92 03/05/20 04:00 Venturi Mask 15.0 Venturi Mask 15.0 03/05/20 04:00 91 03/05/20 04:00 15.0 03/05/20 04:00 96.9 91 30 133/60 (84) 93 03/05/20 00:00 15.0 03/05/20 00:00 96.8 108 22 108/67 (81) 98 03/05/20 00:00 Venturi Mask 15.0 Venturi Mask 15.0 03/04/20 23:56 Non-Rebreather 15.0 03/04/20 23:31 90 Height (Feet): 5 Height (Inches): 8.00 Weight (Pounds): 201 Laboratory Tests Test 03/04/20 22:50 03/05/20 03:27 03/05/20 10:26 03/05/20 10:50 Arterial Blood pH 7.301 (7.350-7.450) 7.338 (7.350-7.450) Arterial Blood Partial Pressure CO2 57.3 mmHg (35.0-45.0) *H 49.8 mmHg (35.0-45.0) H Arterial Blood Partial Pressure O2 404.0 mmHg (75.0-100.0) H 104.9 mmHg (75.0-100.0) H Arterial Blood HCO3 27.6 mmol/L (22.0-26.0) H 26.1 mmol/L (22.0-26.0) H Arterial Blood Oxygen Saturation 99.3 % (95-100) 97.5 % (95-100) Arterial Blood Base Excess 0.7 (-2-2) 0.1 (-2-2) Ghulam Test Positive Positive White Blood Count 20.8 K/UL (4.8-10.8) H Red Blood Count 2.75 M/UL (4.70-6.10) L Hemoglobin 8.3 G/DL (14.2-18.0) L Hematocrit 25.3 % (42.0-52.0) L Mean Corpuscular Volume 92 FL (80-99) Mean Corpuscular Hemoglobin 30.4 PG (27.0-31.0) Mean Corpuscular Hemoglobin Concent 33.0 G/DL (32.0-36.0) Red Cell Distribution Width 14.3 % (11.6-14.8) Platelet Count 177 K/UL (150-450) Mean Platelet Volume 6.3 FL (6.5-10.1) L Neutrophils (%) (Auto) % (45.0-75.0) Lymphocytes (%) (Auto) % (20.0-45.0) Monocytes (%) (Auto) % (1.0-10.0) Eosinophils (%) (Auto) % (0.0-3.0) Basophils (%) (Auto) % (0.0-2.0) Differential Total Cells Counted 100 Neutrophils % (Manual) 94 % (45-75) H Lymphocytes % (Manual) 2 % (20-45) L Monocytes % (Manual) 4 % (1-10) Eosinophils % (Manual) 0 % (0-3) Basophils % (Manual) 0 % (0-2) Band Neutrophils 0 % (0-8) Platelet Estimate Adequate Platelet Morphology Normal Hypochromasia 1+ Anisocytosis 1+ Sodium Level 141 MMOL/L (136-145) 141 MMOL/L (136-145) Potassium Level 6.3 MMOL/L (3.5-5.1) *H 6.3 MMOL/L (3.5-5.1) *H Chloride Level 103 MMOL/L (98-107) 104 MMOL/L (98-107) Carbon Dioxide Level 30 MMOL/L (21-32) 28 MMOL/L (21-32) Anion Gap 9 mmol/L (5-15) 10 mmol/L (5-15) Blood Urea Nitrogen 116 mg/dL (7-18) H 119 mg/dL (7-18) H Creatinine 2.7 MG/DL (0.55-1.30) H 2.9 MG/DL (0.55-1.30) H Estimat Glomerular Filtration Rate 22.6 mL/min (>60) 20.8 mL/min (>60) Glucose Level 138 MG/DL (74-106) H 83 MG/DL (74-106) Calcium Level 9.2 MG/DL (8.5-10.1) 9.1 MG/DL (8.5-10.1) Phosphorus Level 5.7 MG/DL (2.5-4.9) H Magnesium Level 3.4 MG/DL (1.8-2.4) H Total Bilirubin 0.6 MG/DL (0.2-1.0) Aspartate Amino Transf (AST/SGOT) 36 U/L (15-37) Alanine Aminotransferase (ALT/SGPT) 32 U/L (12-78) Alkaline Phosphatase 142 U/L (46-116) H Troponin I 0.106 ng/mL (0.000-0.056) Pro-B-Type Natriuretic Peptide 67973 pg/mL (0-125) H Total Protein 7.2 G/DL (6.4-8.2) Albumin 2.9 G/DL (3.4-5.0) L Globulin 4.3 g/dL Albumin/Globulin Ratio 0.7 (1.0-2.7) L Test 03/05/20 14:33 03/05/20 14:50 03/05/20 18:10 Urine Color Yellow Urine Appearance Clear Urine pH 5 (4.5-8.0) Urine Specific [place] 1.020 (1.005-1.035) Urine Protein 2+ (NEGATIVE) H Urine Glucose (UA) Negative (NEGATIVE) Urine Ketones Negative (NEGATIVE) Urine Blood Negative (NEGATIVE) Urine Nitrite Negative (NEGATIVE) Urine Bilirubin Negative (NEGATIVE) Urine Urobilinogen Normal MG/DL (0.0-1.0) Urine Leukocyte Esterase Negative (NEGATIVE) Urine RBC 0 /HPF (0 - 0) Urine WBC 0-2 /HPF (0 - 0) Urine Squamous Epithelial Cells None /LPF (NONE/OCC) Urine Bacteria Few /HPF (NONE) Urine Mucus Few /LPF (NONE/OCC) H Urine Random Sodium < 20 mmol/L (20-110) L Urine Creatinine 105.1 MG/DL (30.0-125.0) Prothrombin Time 13.0 SEC (9.30-11.50) H Prothromb Time International Ratio 1.2 (0.9-1.1) H Sodium Level 143 MMOL/L (136-145) Potassium Level 5.9 MMOL/L (3.5-5.1) H Chloride Level 103 MMOL/L (98-107) Carbon Dioxide Level 27 MMOL/L (21-32) Anion Gap 13 mmol/L (5-15) Blood Urea Nitrogen 122 mg/dL (7-18) H Creatinine 3.1 MG/DL (0.55-1.30) H Estimat Glomerular Filtration Rate 19.2 mL/min (>60) Glucose Level 175 MG/DL (74-106) H Calcium Level 9.0 MG/DL (8.5-10.1) Phosphorus Level 6.4 MG/DL (2.5-4.9) H Magnesium Level 3.7 MG/DL (1.8-2.4) H Total Bilirubin 0.6 MG/DL (0.2-1.0) Aspartate Amino Transf (AST/SGOT) 59 U/L (15-37) H Alanine Aminotransferase (ALT/SGPT) 59 U/L (12-78) Alkaline Phosphatase 151 U/L (46-116) H Total Protein 7.3 G/DL (6.4-8.2) Albumin 2.8 G/DL (3.4-5.0) L Globulin 4.5 g/dL Albumin/Globulin Ratio 0.6 (1.0-2.7) L Random Vancomycin Level 13.8 ug/mL Current Medications Medications (Trade) Dose Ordered Sig/Breanna Route PRN Reason Start Time Stop Time Status Last Admin Dose Admin Acetaminophen (Tylenol) 650 mg Q4HR PRN GT temp >100.5 or mild pain 03/04/20 21:00 04/03/20 20:59 Albuterol/ Ipratropium (Combivent Respimat) 1 puff Q4HR PRN INH SOB 03/04/20 21:00 04/03/20 20:59 03/04/20 21:58 Aspirin (ASA) 81 mg DAILY GT 03/05/20 09:00 04/19/20 08:59 03/05/20 08:51 Atorvastatin Calcium (Lipitor) 20 mg BEDTIME GT 03/04/20 21:00 06/02/20 20:59 03/05/20 21:08 Dextrose (Dextrose 50%) 25 ml Q30M PRN IV Hypoglycemia 03/04/20 20:45 06/02/20 20:44 03/05/20 12:38 Dextrose (Dextrose 50%) 50 ml ONCE IV 03/05/20 21:00 03/05/20 23:59 03/05/20 21:46 Dextrose (Dextrose 50%) 50 ml Q30M PRN IV Hypoglycemia 03/04/20 20:45 06/02/20 20:44 Doxycycline Monohydrate (Doxycycline Monohydrate) 100 mg EVERY 12 HOURS ORAL 03/05/20 21:00 03/12/20 20:59 03/05/20 21:07 Folic Acid (Folate) 1 mg DAILY GT 03/05/20 09:00 04/04/20 08:59 03/05/20 08:51 Furosemide (Lasix) 40 mg EVERY 12 HOURS ORAL 03/05/20 21:00 04/04/20 20:59 03/05/20 21:07 Furosemide (Lasix) 40 mg ONCE IV 03/05/20 21:00 03/05/20 23:59 03/05/20 21:21 Heparin Sodium (Porcine) (Heparin 5000 units/ml) 5,000 units EVERY 12 HOURS SUBQ 03/04/20 21:00 04/18/20 20:59 03/05/20 21:09 Insulin Aspart (NovoLOG) Q6HR SUBQ 03/05/20 06:00 06/02/20 21:59 03/05/20 18:06 Insulin Human Regular (NovoLIN R) 10 units ONCE IV 03/05/20 21:30 03/05/20 23:59 03/05/20 21:49 Lansoprazole (Prevacid) 30 mg DAILY NG 03/05/20 09:00 04/04/20 08:59 03/05/20 08:51 Metoprolol Succinate (Toprol XL) 100 mg DAILY ORAL 03/06/20 09:00 06/04/20 08:59 Piperacillin Sod/ Tazobactam Sod 3.375 gm/Sodium Chloride 110 ml @ 27.5 mls/hr Q12HR IVPB 03/04/20 22:00 03/11/20 21:59 03/05/20 21:49 Sevelamer Carbonate (Renvela) 800 mg THREE TIMES A DAY ORAL 03/06/20 09:00 06/04/20 08:59 Tamsulosin HCl (Flomax) 0.4 mg BEDTIME ORAL 03/04/20 21:00 04/03/20 20:59 03/05/20 21:08 Tramadol HCl (Ultram) 50 mg Q8H PRN ORAL Moderate to Severe Pain 03/04/20 21:00 03/11/20 20:59 Vancomycin HCl (Vanco pharmacy to dose) 1 ea DAILY PRN MISC Per rx protocol 03/04/20 20:45 04/03/20 20:44 Vancomycin/Sodium Chloride 275 ml @ 137.5 mls/ hr ONCE IVPB 03/05/20 23:00 03/06/20 02:00 Warfarin Sodium (Coumadin per pharmacy) 1 ea DAILY PRN MISC Per rx protocol 03/05/20 09:30 04/04/20 09:29 Judi Stokes MD Mar 05, 2020 22:19
--- NOTE | 2020-03-05 23:28 | Neurology Progress Note ---
Interim History Interim History Interim History 84-year-old male with a history of congestive heart failure, dementia, diabetes , hypertension, hyperlipidemia, peripheral vascular disease, bipolar disorder that presents to the emergency department [facility] with hypoxia found to be septic with bilateral PNA. Per [facility] at [facility] pt was noted to be progressively SOB yesterday and then became hypoxic in the afternoon at which time he was sent by EMS to the ED w/ sats in the 80s on supplemental oxygen. He was recently discharged form [facility] after admit for syncope w head trauma ( to 02/15), workup unremarkable for syncope and neg for ICH. TTE not able to be done as pt refused. His Lasix was stopped due to rise in Cr (1.4 to 1.56 on DC), unclear if pt has been off diuretics at [facility]. There were some lung opacities seen on CXR on 02/14 (See read below), ID and pulm did not think abx were necessary at that time and pt was rulled out for COVID w/ PCR neg x 2 24 hrs apart prior to dc back to [facility]. In the ED pt was found to be afebrile, tachycardic, hds. CXR showed multifocal bilateral pna & bilateral effusion. Labs were sig for leukocytosis, hyperkalemia , kellen w/ Cr 2.7, Tn 0.13, bnp 32k, abg w/ resp acidosis pH 7.3/co 2 56. Pt was started empirically on vanco/cefepime, received insulin/d50/ca/kayexelate and admitted to stepdown unit. EKG was unremarkable per ED. At baseline more oriented. now somnolent, only to name Objective Physical Exam Last Vital Signs Date Time Temp Pulse Resp B/P (MAP) Pulse Ox O2 Delivery O2 Flow Rate FiO2 03/05/20 21:00 10.0 03/05/20 20:00 98.6 105 30 128/65 (86) 93 03/05/20 20:00 Venturi Mask Venturi Mask 03/04/20 19:13 50 Laboratory Tests Test 03/05/20 03:27 03/05/20 10:26 03/05/20 10:50 03/05/20 14:33 White Blood Count 20.8 K/UL (4.8-10.8) H Red Blood Count 2.75 M/UL (4.70-6.10) L Hemoglobin 8.3 G/DL (14.2-18.0) L Hematocrit 25.3 % (42.0-52.0) L Mean Corpuscular Volume 92 FL (80-99) Mean Corpuscular Hemoglobin 30.4 PG (27.0-31.0) Mean Corpuscular Hemoglobin Concent 33.0 G/DL (32.0-36.0) Red Cell Distribution Width 14.3 % (11.6-14.8) Platelet Count 177 K/UL (150-450) Mean Platelet Volume 6.3 FL (6.5-10.1) L Neutrophils (%) (Auto) % (45.0-75.0) Lymphocytes (%) (Auto) % (20.0-45.0) Monocytes (%) (Auto) % (1.0-10.0) Eosinophils (%) (Auto) % (0.0-3.0) Basophils (%) (Auto) % (0.0-2.0) Differential Total Cells Counted 100 Neutrophils % (Manual) 94 % (45-75) H Lymphocytes % (Manual) 2 % (20-45) L Monocytes % (Manual) 4 % (1-10) Eosinophils % (Manual) 0 % (0-3) Basophils % (Manual) 0 % (0-2) Band Neutrophils 0 % (0-8) Platelet Estimate Adequate Platelet Morphology Normal Hypochromasia 1+ Anisocytosis 1+ Sodium Level 141 MMOL/L (136-145) 141 MMOL/L (136-145) Potassium Level 6.3 MMOL/L (3.5-5.1) *H 6.3 MMOL/L (3.5-5.1) *H Chloride Level 103 MMOL/L (98-107) 104 MMOL/L (98-107) Carbon Dioxide Level 30 MMOL/L (21-32) 28 MMOL/L (21-32) Anion Gap 9 mmol/L (5-15) 10 mmol/L (5-15) Blood Urea Nitrogen 116 mg/dL (7-18) H 119 mg/dL (7-18) H Creatinine 2.7 MG/DL (0.55-1.30) H 2.9 MG/DL (0.55-1.30) H Estimat Glomerular Filtration Rate 22.6 mL/min (>60) 20.8 mL/min (>60) Glucose Level 138 MG/DL (74-106) H 83 MG/DL (74-106) Calcium Level 9.2 MG/DL (8.5-10.1) 9.1 MG/DL (8.5-10.1) Phosphorus Level 5.7 MG/DL (2.5-4.9) H Magnesium Level 3.4 MG/DL (1.8-2.4) H Total Bilirubin 0.6 MG/DL (0.2-1.0) Aspartate Amino Transf (AST/SGOT) 36 U/L (15-37) Alanine Aminotransferase (ALT/SGPT) 32 U/L (12-78) Alkaline Phosphatase 142 U/L (46-116) H Troponin I 0.106 ng/mL (0.000-0.056) Pro-B-Type Natriuretic Peptide 43072 pg/mL (0-125) H Total Protein 7.2 G/DL (6.4-8.2) Albumin 2.9 G/DL (3.4-5.0) L Globulin 4.3 g/dL Albumin/Globulin Ratio 0.7 (1.0-2.7) L Arterial Blood pH 7.338 (7.350-7.450) Arterial Blood Partial Pressure CO2 49.8 mmHg (35.0-45.0) H Arterial Blood Partial Pressure O2 104.9 mmHg (75.0-100.0) H Arterial Blood HCO3 26.1 mmol/L (22.0-26.0) H Arterial Blood Oxygen Saturation 97.5 % (95-100) Arterial Blood Base Excess 0.1 (-2-2) Ghulam Test Positive Urine Color Yellow Urine Appearance Clear Urine pH 5 (4.5-8.0) Urine Specific Cord 1.020 (1.005-1.035) Urine Protein 2+ (NEGATIVE) H Urine Glucose (UA) Negative (NEGATIVE) Urine Ketones Negative (NEGATIVE) Urine Blood Negative (NEGATIVE) Urine Nitrite Negative (NEGATIVE) Urine Bilirubin Negative (NEGATIVE) Urine Urobilinogen Normal MG/DL (0.0-1.0) Urine Leukocyte Esterase Negative (NEGATIVE) Urine RBC 0 /HPF (0 - 0) Urine WBC 0-2 /HPF (0 - 0) Urine Squamous Epithelial Cells None /LPF (NONE/OCC) Urine Bacteria Few /HPF (NONE) Urine Mucus Few /LPF (NONE/OCC) H Urine Random Sodium < 20 mmol/L (20-110) L Urine Creatinine 105.1 MG/DL (30.0-125.0) Test 03/05/20 14:50 03/05/20 18:10 Prothrombin Time 13.0 SEC (9.30-11.50) H Prothromb Time International Ratio 1.2 (0.9-1.1) H Sodium Level 143 MMOL/L (136-145) Potassium Level 5.9 MMOL/L (3.5-5.1) H Chloride Level 103 MMOL/L (98-107) Carbon Dioxide Level 27 MMOL/L (21-32) Anion Gap 13 mmol/L (5-15) Blood Urea Nitrogen 122 mg/dL (7-18) H Creatinine 3.1 MG/DL (0.55-1.30) H Estimat Glomerular Filtration Rate 19.2 mL/min (>60) Glucose Level 175 MG/DL (74-106) H Calcium Level 9.0 MG/DL (8.5-10.1) Phosphorus Level 6.4 MG/DL (2.5-4.9) H Magnesium Level 3.7 MG/DL (1.8-2.4) H Total Bilirubin 0.6 MG/DL (0.2-1.0) Aspartate Amino Transf (AST/SGOT) 59 U/L (15-37) H Alanine Aminotransferase (ALT/SGPT) 59 U/L (12-78) Alkaline Phosphatase 151 U/L (46-116) H Total Protein 7.3 G/DL (6.4-8.2) Albumin 2.8 G/DL (3.4-5.0) L Globulin 4.5 g/dL Albumin/Globulin Ratio 0.6 (1.0-2.7) L Random Vancomycin Level 13.8 ug/mL Head: normocophalic Neck: no rigidity EENT: benign Neurologic Exam Objective somnolent, confused can tell me his name, non focal Impression/Recommendations Problems: (1) Suspected 2019 novel coronavirus infection (2) Anemia (3) Severe malnutrition (4) Renal failure (ARF), acute on chronic (5) Dehydration (6) Encounter for PEG (percutaneous endoscopic gastrostomy) (7) KELLEN (acute kidney injury) (8) Pancreatitis (9) Dyspnea (10) Bronchitis (11) Acute renal failure (12) Depression (13) Diabetes (14) Pneumonia (15) Acute respiratory failure (16) Atrial fibrillation (17) CAD (coronary artery disease) (18) Respiratory insufficiency (19) HTN (hypertension) (20) Metabolic encephalopathy (21) Acute on chronic renal failure (22) Sepsis (23) History of COPD (24) HAP (hospital-acquired pneumonia) Status: deteriorating Diagnostic Impression acute encephalopathy likely metabolic in the context of sepsis afib rvr telemetry rate control atb broad spectrum ro Edmar Martínez MD Mar 05, 2020 23:28
[2020-03-06] VITALS: BP 123/63
[2020-03-06 04:00] VITALS: BP 117/56
[2020-03-06 04:40] LABS: HEMATOCRIT 24.4 % (42.0-52.0); MEAN CORPUSCULAR VOLUME 93 FL (80-99); PLATELET COUNT 172 K/UL (150-450); RED BLOOD COUNT 2.63 M/UL (4.70-6.10); RED CELL DISTRIBUTION WIDTH 14.4 % (11.6-14.8); WHITE BLOOD COUNT 14.9 K/UL (4.8-10.8)
[2020-03-06 04:45] LABS: INR 1.2 (0.9-1.1)
[2020-03-06 05:18] LABS: ALANINE AMINOTRANSFERASE 74 U/L (12-78); ALBUMIN 3.1 G/DL (3.4-5.0); ALBUMIN/GLOBULIN RATIO 0.9 (1.0-2.7); ALKALINE PHOSPHATASE 201 U/L (46-116); ANION GAP 13 mmol/L (5-15); ASPARTATE AMINO TRANSFERASE 69 U/L (15-37); BILIRUBIN,TOTAL 0.6 MG/DL (0.2-1.0); BLOOD UREA NITROGEN 130 mg/dL (7-18); CALCIUM 8.5 MG/DL (8.5-10.1); CARBON DIOXIDE 28 MMOL/L (21-32); CHLORIDE 101 MMOL/L (98-107); CREATININE 3.3 MG/DL (0.55-1.30); POTASSIUM 5.2 MMOL/L (3.5-5.1); SODIUM 142 MMOL/L (136-145)
[2020-03-06 05:28] LABS: PHOSPHORUS 6.8 MG/DL (2.5-4.9)
[2020-03-06] MEDS: NovoLOG Insulin Flexpen SUBQ SCH (05:53)
[2020-03-06 08:00] VITALS: BP 127/56
--- NOTE | 2020-03-06 08:15 | Consultation ---
DATE OF CONSULTATION: 03/05/2020 INFECTIOUS DISEASE CONSULTATION CONSULTING PHYSICIAN: Judi Stokes MD. ATTENDING PHYSICIAN: Miguelangel Frederick MD. REFERRING PHYSICIAN: Osmel Alex MD. REASON FOR CONSULTATION: Pneumonia, sepsis, leukocytosis, possible COVID-19 virus infection with pneumonia. CHIEF COMPLAINT: Patient's chief complaint coming in to the hospital is pneumonia. HISTORY OF PRESENT ILLNESS: This is an 84-year-old male who comes from the penit[facility] to [facility] with shortness of breath, hypoxia, leukocytosis, sepsis, pneumonia. Patient has high risk for COVID-19 virus infection with bilateral infiltrates seen on chest x-ray. Infectious Disease consultation is requested for antibiotic management. Patient also in acute renal failure. Patient was placed on Vanco, Zosyn, and doxycycline empirically. Patient is not a very good historian otherwise. Cultures are pending. COVID-19 testing is pending. Patient is in the step-down unit. Case was discussed with RN and communicated with primary care team and consultants. MAR was noted. Orders were noted. Notes and records were reviewed. REVIEW OF SYSTEMS: CONSTITUTIONAL: Patient has a Landis. Patient has a Venturi mask. Patient is short of breath. He is lethargic. Poor historian. He has no fevers. No pressors. HEAD AND NECK: He has a Venturi mask. CARDIAC: No pressors. GASTROINTESTINAL: No nausea, vomiting, diarrhea. GENITOURINARY: He has a Landis. PULMONARY: Short of breath. No hemoptysis or secretions, but he is short of breath. SKIN: No rash. EXTREMITIES: Could not assess. NEUROLOGIC: No seizures. Generalized fatigue. Generalized weakness. Rest of the review of systems is otherwise limited in this patient. PAST MEDICAL HISTORY: Patient has a past medical history of following. Patient has a past medical history of wounds. Patient has a past medical history of heart failure, dementia, diabetes, hypertension, hyperlipidemia, peripheral vascular disease, bipolar disease. ALLERGIES: No known drug allergies. No antibiotic allergies. SOCIAL HISTORY: Negative for smoking, alcohol, or drug abuse. FAMILY HISTORY: Noncontributory. Negative for tuberculosis or cancer. MEDICATIONS: Upon reviewing the MAR, patient is on following medications. Patient is on metoprolol, Sevelamer, Vanco, Zosyn, insulin, doxycycline, IV fluids, furosemide, warfarin, aspirin, Prevacid, folic acid, tramadol, acetaminophen, atorvastatin, . Outside medications noted and reconciliated. PHYSICAL EXAMINATION: VITAL SIGNS: Temperature 96.9, pulse rate 108, respiratory rate 29, blood pressure 127/65, saturation 100% on Venturi mask on 10 liters. GENERAL: Weak, lethargic, short of breath on Venturi mask. HEAD AND NECK: Oral exam, no thrush. Eye exam, no icterus. Normocephalic. Neck is supple. HEART: Regular. No gallop or murmur. Tachycardic. ABDOMEN: Soft. Positive bowel sounds. LUNGS: Bilateral rhonchi and rales. SKIN: No rash. MUSCULOSKELETAL: No effusion. Legs are without cellulitis. PERIPHERAL VASCULAR: No cyanosis or gangrene. GENITOURINARY: Patient has a Landis. Urine is slightly cloudy. LINE SITES: Without phlebitis. NEUROLOGIC: Weakness. Poorly responsive. Lethargic. LABORATORY DATA: Urinalysis, leukocyte esterase negative. Creatinine is 3.1, potassium 5.9. White count 20.8, hemoglobin 9.3. LFTs were noted. Cultures are pending. COVID-19 PCR testing is pending. IMAGING STUDIES: Chest x-ray shows bilateral infiltrates. Also effusions. ASSESSMENT AND PLAN: 1. Patient has pneumonia, sepsis, and leukocytosis. Patient has high risk for COVID-19 virus infection with pneumonia. Patient could have certainly aspiration and healthcare-acquired pneumonia based on history of dementia coming from the ECF or SNF. Patient certainly could have community-acquired pneumonia such as atypical pneumonia or Streptococcus pneumonia. At this time, we will continue Vanco and Zosyn for MRSA and gram-negative anaerobic coverage. Continue Vanco and Zosyn for sepsis, pneumonia including aspiration and healthcare-acquired pneumonia, community-acquired pneumonia and also treat with atypicals like doxycycline. Continue antibiotics for pneumonia, sepsis. Continue isolation for COVID-19 virus infection, which patient is high risk for. Unfortunately, patient is not a candidate for Remdesivir because of his renal failure. Continue supportive care for COVID-19 virus infection. Continue respiratory support. Continue isolation for COVID-19 virus infection. 2. Acute renal failure. 3. Anemia. 4. Diabetes. 5. Hypertension. 6. Blood sugar and blood pressure treatment per primary care team. 7. Hyperlipidemia. 8. Peripheral vascular disease. 9. CHF. 10. Bipolar disease. 11. No known drug allergies. 12. Social history is negative. 13. Family history is noncontributory. 14. MAR was noted. 15. Case discussed with RN. 16. Continue treatment per primary consultants. 17. Wound care per Surgery. Wounds were evaluated also and I doubt these are source of sepsis. Judi Stokes M.D. DR: VENKAT JOB#: [id number] CC:
[2020-03-06 09:00] VITALS: BP 127/56
[2020-03-06] MEDS ORDERED: Metoprolol Succinate XL 100mg tab ORAL SCH (09:00)
[2020-03-06] MEDS ORDERED: Pantoprazole Inj IVP SCH (09:00)
[2020-03-06] MEDS: Piperacillin/Tazobactam 3.375 GM in NS 110 ML IVPB SCH (09:00)
[2020-03-06] MEDS: Furosemide 40mg tab ORAL SCH (09:00)
[2020-03-06] MEDS: Doxycycline Monohydrate 100mg ORAL SCH (09:00)
--- NOTE | 2020-03-06 09:15 | Pulmonology Progress Note ---
Chaya Wilkerson EMBOSSING PRESS OPERATOR 03/06/20 0915: Subjective Allergies: Coded Allergies: No Known Allergies (Unverified , 12/09/13) Subjective leukocytosis trending down, remains on 45 % VM creat trending up, decision was made to start HD, s/p placement of HD catheter earlier this am K down to 5.2 COVID 19 6/2 NGT Objective Last 24 Hour Vital Signs Date Time Temp Pulse Resp B/P (MAP) Pulse Ox O2 Delivery O2 Flow Rate FiO2 03/06/20 08:00 10.0 03/06/20 08:00 Venturi Mask 10.0 Venturi Mask 15.0 03/06/20 04:00 Venturi Mask 10.0 Venturi Mask 15.0 03/06/20 04:00 98.6 93 30 117/56 (76) 93 03/06/20 04:00 10.0 03/06/20 03:27 90 03/06/20 00:00 98.8 99 30 123/63 (83) 93 03/06/20 00:00 Venturi Mask 10.0 Venturi Mask 15.0 03/05/20 23:28 99 03/05/20 21:00 10.0 03/05/20 20:00 98.6 105 30 128/65 (86) 93 03/05/20 20:00 Venturi Mask 10.0 Venturi Mask 15.0 03/05/20 19:05 102 03/05/20 16:00 Venturi Mask 10.0 Venturi Mask 10.0 03/05/20 16:00 96.9 108 29 127/65 (85) 100 03/05/20 16:00 10.0 03/05/20 15:16 103 03/05/20 12:00 96.8 93 35 129/51 (77) 100 03/05/20 12:00 10.0 03/05/20 12:00 Venturi Mask 10.0 Venturi Mask 10.0 03/05/20 11:35 96 Intake and Output 03/05/20 03/06/20 19:00 07:00 Intake Total 210.0 ml 645.0 ml Output Total 250 ml 250 ml Balance -40.0 ml 395.0 ml Intake Free Water 100 ml IV Total 110.0 ml 485.0 ml Tube Feeding 100 ml 60 ml Output Urine Total 250 ml 250 ml # Voids 1 # Bowel Movements 2 Objective General Appearance: chronically ill looking bedridden male, in NAD Lines, tubes and drains: peripheral, HD catheter HEENT: normocephalic, atraumatic, anicteric Neck: supple Respiratory/Chest: decreased breath sounds - at bases Cardiovascular/Chest: normal rate, arrhythmia - A fib on monitor Abdomen: normal bowel sounds, non tender, soft, G tube Extremities: normal capillary refill, no edema Skin Exam: sacral and R heel decub Musculoskeletal: atrophy BLE Microbiology Date/Time Source Procedure Growth Status 03/04/20 15:50 Blood Blood Culture - Preliminary NO GROWTH AFTER 24 HOURS Resulted 03/04/20 15:35 Blood Blood Culture - Preliminary NO GROWTH AFTER 24 HOURS Resulted 03/04/20 15:50 Nasopharynx Coronavirus COVID-19 PCR (CAROL) - Final Complete Laboratory Tests 03/05/20 10:26: Arterial Blood pH 7.338L, Arterial Blood Partial Pressure CO2 49.8H, Arterial Blood Partial Pressure O2 104.9H, Arterial Blood HCO3 26.1H, Arterial Blood Oxygen Saturation 97.5, Arterial Blood Base Excess 0.1, Ghulam Test Positive 03/05/20 10:50: Sodium Level 141, Potassium Level 6.3*H, Chloride Level 104, Carbon Dioxide Level 28, Anion Gap 10, Blood Urea Nitrogen 119H, Creatinine 2.9H, Estimat Glomerular Filtration Rate 20.8, Glucose Level 83, Calcium Level 9.1 03/05/20 14:33: Urine Color Yellow, Urine Appearance Clear, Urine pH 5, Urine Specific Dawson 1.020, Urine Protein 2+H, Urine Glucose (UA) Negative, Urine Ketones Negative, Urine Blood Negative, Urine Nitrite Negative, Urine Bilirubin Negative, Urine Urobilinogen Normal, Urine Leukocyte Esterase Negative, Urine RBC 0, Urine WBC 0 -2, Urine Squamous Epithelial Cells None, Urine Bacteria Few, Urine Mucus FewH, Urine Random Sodium < 20L, Urine Creatinine 105.1 03/05/20 14:50: Prothrombin Time 13.0H, Prothromb Time International Ratio 1.2H 03/05/20 18:10: Sodium Level 143, Potassium Level 5.9H, Chloride Level 103, Carbon Dioxide Level 27, Anion Gap 13, Blood Urea Nitrogen 122H, Creatinine 3.1H, Estimat Glomerular Filtration Rate 19.2, Glucose Level 175H, Calcium Level 9.0, Phosphorus Level 6.4H, Magnesium Level 3.7H, Total Bilirubin 0.6, Aspartate Amino Transf (AST/SGOT) 59H, Alanine Aminotransferase (ALT/SGPT) 59, Alkaline Phosphatase 151H, Total Protein 7.3, Albumin 2.8L, Globulin 4.5, Albumin/ Globulin Ratio 0.6L, Random Vancomycin Level 13.8 03/06/20 03:45: Sodium Level 142, Potassium Level 5.2H, Chloride Level 101, Carbon Dioxide Level 28, Anion Gap 13, Blood Urea Nitrogen 130H, Creatinine 3.3H, Estimat Glomerular Filtration Rate 17.9, Glucose Level 270H, Calcium Level 8.5, Phosphorus Level 6.8H, Magnesium Level 3.6H, Total Bilirubin 0.6, Aspartate Amino Transf (AST/SGOT) 69H, Alanine Aminotransferase (ALT/SGPT) 74, Alkaline Phosphatase 201H, Total Protein 6.7, Albumin 3.1L, Globulin 3.6, Albumin/ Globulin Ratio 0.9L, White Blood Count 14.9H, Red Blood Count 2.63L, Hemoglobin 8.0L, Hematocrit 24.4L, Mean Corpuscular Volume 93, Mean Corpuscular Hemoglobin 30.3, Mean Corpuscular Hemoglobin Concent 32.6, Red Cell Distribution Width 14.4 , Platelet Count 172, Mean Platelet Volume 6.5, Neutrophils (%) (Auto) , Lymphocytes (%) (Auto) , Monocytes (%) (Auto) , Eosinophils (%) (Auto) , Basophils (%) (Auto) , Neutrophils % (Manual) [Pending], Lymphocytes % (Manual) [Pending], Platelet Estimate [Pending], Platelet Morphology [Pending], Prothrombin Time 13.4H, Prothromb Time International Ratio 1.2H, Hepatitis B Surface Antigen [Pending] Current Medications Medications (Trade) Dose Ordered Sig/Breanna Route PRN Reason Start Time Stop Time Status Last Admin Dose Admin Acetaminophen (Tylenol) 650 mg Q4HR PRN GT temp >100.5 or mild pain 03/04/20 21:00 04/03/20 20:59 Albuterol/ Ipratropium (Combivent Respimat) 1 puff Q4HR PRN INH SOB 03/04/20 21:00 04/03/20 20:59 03/04/20 21:58 Aspirin (ASA) 81 mg DAILY GT 03/05/20 09:00 04/19/20 08:59 03/05/20 08:51 Atorvastatin Calcium (Lipitor) 20 mg BEDTIME GT 03/04/20 21:00 06/02/20 20:59 03/05/20 21:08 Dextrose (Dextrose 50%) 25 ml Q30M PRN IV Hypoglycemia 03/04/20 20:45 06/02/20 20:44 03/05/20 12:38 Dextrose (Dextrose 50%) 50 ml Q30M PRN IV Hypoglycemia 03/04/20 20:45 06/02/20 20:44 Doxycycline Monohydrate (Doxycycline Monohydrate) 100 mg EVERY 12 HOURS ORAL 03/05/20 21:00 03/12/20 20:59 03/05/20 21:07 Folic Acid (Folate) 1 mg DAILY GT 03/05/20 09:00 04/04/20 08:59 03/05/20 08:51 Furosemide (Lasix) 40 mg EVERY 12 HOURS ORAL 03/05/20 21:00 04/04/20 20:59 03/05/20 21:07 Insulin Aspart (NovoLOG) Q6HR SUBQ 03/05/20 06:00 06/02/20 21:59 03/06/20 05:53 Lansoprazole (Prevacid) 30 mg DAILY NG 03/05/20 09:00 04/04/20 08:59 03/05/20 08:51 Metoprolol Succinate (Toprol XL) 100 mg DAILY ORAL 03/06/20 09:00 06/04/20 08:59 Piperacillin Sod/ Tazobactam Sod 3.375 gm/Sodium Chloride 110 ml @ 27.5 mls/hr Q12HR IVPB 03/04/20 22:00 03/11/20 21:59 03/05/20 21:49 Sevelamer Carbonate (Renvela) 800 mg THREE TIMES A DAY ORAL 03/06/20 09:00 06/04/20 08:59 Tamsulosin HCl (Flomax) 0.4 mg BEDTIME ORAL 03/04/20 21:00 04/03/20 20:59 03/05/20 21:08 Tramadol HCl (Ultram) 50 mg Q8H PRN ORAL Moderate to Severe Pain 03/04/20 21:00 03/11/20 20:59 Vancomycin HCl (Vanco pharmacy to dose) 1 ea DAILY PRN MISC Per rx protocol 03/04/20 20:45 04/03/20 20:44 Warfarin Sodium (Coumadin per pharmacy) 1 ea DAILY PRN MISC Per rx protocol 03/05/20 09:30 04/04/20 09:29 Warfarin Sodium (Coumadin) 4 mg ONCE ORAL 03/06/20 17:00 03/06/20 18:00 Assessment/Plan Assessment/Plan ASSESSMENT PNA Probably sepsis Acute hypoxemic respiratory failure, requiring high O2 flow Obstructive lung disease/COPD Suspected COVID 19 infection Hx of 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 due to renal failure cardio on board on a/PLT with ASA, beta blockage and statin last ECHO per records with EF 45% -mild systolic dysfunction diuresis on hold , s/p 1 dose of lasix monitor volumes and cardiorenal parameters rate overall controlled with BB, started on Coumadin as per cardio hold diuretics, monitor renal paramerts, lytes, correct lytes as needed per nephro , K trending down nephro on board creat worse s/p HD catheter placement 03/06 HD as per nephro , monitor volumes aspiration precautions, G tube feeding monitor HH with goal to keep Hgb above 7 GI prophylaxis BS management with SSI , [id number] wound care case discussed and evaluated by supervising physician Shantanu Webster MD 03/06/20 1420: Subjective Allergies: Coded Allergies: No Known Allergies (Unverified , 12/09/13) Assessment/Plan Assessment/Plan Patient seen and examined earlier today with EMBOSSING PRESS OPERATOR, agree with A&P as it reflects our joint deliberations. Patient seen earlier today, since then coded and . Chaya Wilkerson EMBOSSING PRESS OPERATOR Mar 06, 2020 09:15 Shantanu Webster MD Mar 06, 2020 14:20
--- NOTE | 2020-03-06 09:30 | Diagnostic Imaging Report ---
Indication: Acute renal failure Technique: Grayscale and duplex images of the kidneys, retroperitoneum, and bladder were obtained. Comparison: 08/04/2019 Findings: Right kidney measures 10 cm in length. Left kidney measures 10.4 cm in length. Both kidneys demonstrate slightly increased echogenicity. There is slight thinning of the renal cortices bilaterally.. No hydronephrosis. There is a 3.3 cm cyst coming off of the left kidney. Normal inferior vena cava. Bladder is empty, contains a Landis catheter. Trace ascites fluid is present Impression: Negative for hydronephrosis Mildly increased renal echogenicity and renal cortical thinning, consistent with medical renal disease, also previously described. Incidental finding left renal cyst Empty bladder with a Landis catheter.
--- NOTE | 2020-03-06 09:52 | Operative Note - PDOC ---
Operative Note Operative Note Date of Operation/Procedure: Mar 06, 2020 Pre-op Diagnosis: sepsis renal insufficiency hyperkalemia COVID PUI Procedure: right femoral temporary hemodialysis catheter insertion Post-op Diagnosis: same as pre-op Surgeon: rufus garcia md Anesthesia: local Specimen: none Condition: unstable Estimated Blood Loss: minimal Drains: none Implant(s) used?: No Indications for Procedure 84M septic, covid pui, leukocytosis, renal insufficiency, hyperkalemia planned for urgent Hemodialysis per renal needs access line indicated and emergent. patient unresponsive Description of Procedure patient made comfortable at bedside in supine position. right groin prepped and draped in standard surgical fashion. anatomy identified. pulse very faint but palpated. finder needle used and right femoral vein cannulated. dark venous blood noted and guidewire placed needle and needle removed. small skin incision made and dilators used. temp HD catheter placed over guidewire without complication. guidewire removed and discarded. line flushed and aspirated properly. line sutured in place. dressings applied. patient tolerated well plan for HD immediately Rufus Garcia Mar 06, 2020 09:52
--- NOTE | 2020-03-06 09:53 | Surgery Progress Note ---
Surgery Progress Note Subjective Procedure Performed right femoral temporary hemodialysis catheter insertion Additional Comments patient deteriorated unresponsive renal worse needs HD today Objective Last 24 Hour Vital Signs Date Time Temp Pulse Resp B/P (MAP) Pulse Ox O2 Delivery O2 Flow Rate FiO2 03/06/20 08:00 10.0 03/06/20 08:00 Venturi Mask 10.0 Venturi Mask 15.0 03/06/20 04:00 Venturi Mask 10.0 Venturi Mask 15.0 03/06/20 04:00 98.6 93 30 117/56 (76) 93 03/06/20 04:00 10.0 03/06/20 03:27 90 03/06/20 00:00 98.8 99 30 123/63 (83) 93 03/06/20 00:00 Venturi Mask 10.0 Venturi Mask 15.0 03/05/20 23:28 99 03/05/20 21:00 10.0 03/05/20 20:00 98.6 105 30 128/65 (86) 93 03/05/20 20:00 Venturi Mask 10.0 Venturi Mask 15.0 03/05/20 19:05 102 03/05/20 16:00 Venturi Mask 10.0 Venturi Mask 10.0 03/05/20 16:00 96.9 108 29 127/65 (85) 100 03/05/20 16:00 10.0 03/05/20 15:16 103 03/05/20 12:00 96.8 93 35 129/51 (77) 100 03/05/20 12:00 10.0 03/05/20 12:00 Venturi Mask 10.0 Venturi Mask 10.0 03/05/20 11:35 96 I&O Intake and Output 03/05/20 03/06/20 19:00 07:00 Intake Total 210.0 ml 645.0 ml Output Total 250 ml 250 ml Balance -40.0 ml 395.0 ml Intake Free Water 100 ml IV Total 110.0 ml 485.0 ml Tube Feeding 100 ml 60 ml Output Urine Total 250 ml 250 ml # Voids 1 # Bowel Movements 2 Dressing: other Wound: other Drains: other Cardiovascular: RSR Respiratory: decreased breath sounds Abdomen: soft, non-tender, present bowel sounds Extremities: no cyanosis Laboratory Tests Test 03/05/20 10:26 03/05/20 10:50 03/05/20 14:33 03/05/20 14:50 Arterial Blood pH 7.338 (7.350-7.450) Arterial Blood Partial Pressure CO2 49.8 mmHg (35.0-45.0) H Arterial Blood Partial Pressure O2 104.9 mmHg (75.0-100.0) H Arterial Blood HCO3 26.1 mmol/L (22.0-26.0) H Arterial Blood Oxygen Saturation 97.5 % (95-100) Arterial Blood Base Excess 0.1 (-2-2) Ghulam Test Positive Sodium Level 141 MMOL/L (136-145) Potassium Level 6.3 MMOL/L (3.5-5.1) *H Chloride Level 104 MMOL/L (98-107) Carbon Dioxide Level 28 MMOL/L (21-32) Anion Gap 10 mmol/L (5-15) Blood Urea Nitrogen 119 mg/dL (7-18) H Creatinine 2.9 MG/DL (0.55-1.30) H Estimat Glomerular Filtration Rate 20.8 mL/min (>60) Glucose Level 83 MG/DL (74-106) Calcium Level 9.1 MG/DL (8.5-10.1) Urine Color Yellow Urine Appearance Clear Urine pH 5 (4.5-8.0) Urine Specific [place] 1.020 (1.005-1.035) Urine Protein 2+ (NEGATIVE) H Urine Glucose (UA) Negative (NEGATIVE) Urine Ketones Negative (NEGATIVE) Urine Blood Negative (NEGATIVE) Urine Nitrite Negative (NEGATIVE) Urine Bilirubin Negative (NEGATIVE) Urine Urobilinogen Normal MG/DL (0.0-1.0) Urine Leukocyte Esterase Negative (NEGATIVE) Urine RBC 0 /HPF (0 - 0) Urine WBC 0-2 /HPF (0 - 0) Urine Squamous Epithelial Cells None /LPF (NONE/OCC) Urine Bacteria Few /HPF (NONE) Urine Mucus Few /LPF (NONE/OCC) H Urine Random Sodium < 20 mmol/L (20-110) L Urine Creatinine 105.1 MG/DL (30.0-125.0) Prothrombin Time 13.0 SEC (9.30-11.50) H Prothromb Time International Ratio 1.2 (0.9-1.1) H Test 03/05/20 18:10 03/06/20 03:45 Sodium Level 143 MMOL/L (136-145) 142 MMOL/L (136-145) Potassium Level 5.9 MMOL/L (3.5-5.1) H 5.2 MMOL/L (3.5-5.1) H Chloride Level 103 MMOL/L (98-107) 101 MMOL/L (98-107) Carbon Dioxide Level 27 MMOL/L (21-32) 28 MMOL/L (21-32) Anion Gap 13 mmol/L (5-15) 13 mmol/L (5-15) Blood Urea Nitrogen 122 mg/dL (7-18) H 130 mg/dL (7-18) H Creatinine 3.1 MG/DL (0.55-1.30) H 3.3 MG/DL (0.55-1.30) H Estimat Glomerular Filtration Rate 19.2 mL/min (>60) 17.9 mL/min (>60) Glucose Level 175 MG/DL (74-106) H 270 MG/DL (74-106) H Calcium Level 9.0 MG/DL (8.5-10.1) 8.5 MG/DL (8.5-10.1) Phosphorus Level 6.4 MG/DL (2.5-4.9) H 6.8 MG/DL (2.5-4.9) H Magnesium Level 3.7 MG/DL (1.8-2.4) H 3.6 MG/DL (1.8-2.4) H Total Bilirubin 0.6 MG/DL (0.2-1.0) 0.6 MG/DL (0.2-1.0) Aspartate Amino Transf (AST/SGOT) 59 U/L (15-37) H 69 U/L (15-37) H Alanine Aminotransferase (ALT/SGPT) 59 U/L (12-78) 74 U/L (12-78) Alkaline Phosphatase 151 U/L (46-116) H 201 U/L (46-116) H Total Protein 7.3 G/DL (6.4-8.2) 6.7 G/DL (6.4-8.2) Albumin 2.8 G/DL (3.4-5.0) L 3.1 G/DL (3.4-5.0) L Globulin 4.5 g/dL 3.6 g/dL Albumin/Globulin Ratio 0.6 (1.0-2.7) L 0.9 (1.0-2.7) L Random Vancomycin Level 13.8 ug/mL White Blood Count 14.9 K/UL (4.8-10.8) H Red Blood Count 2.63 M/UL (4.70-6.10) L Hemoglobin 8.0 G/DL (14.2-18.0) L Hematocrit 24.4 % (42.0-52.0) L Mean Corpuscular Volume 93 FL (80-99) Mean Corpuscular Hemoglobin 30.3 PG (27.0-31.0) Mean Corpuscular Hemoglobin Concent 32.6 G/DL (32.0-36.0) Red Cell Distribution Width 14.4 % (11.6-14.8) Platelet Count 172 K/UL (150-450) Mean Platelet Volume 6.5 FL (6.5-10.1) Neutrophils (%) (Auto) % (45.0-75.0) Lymphocytes (%) (Auto) % (20.0-45.0) Monocytes (%) (Auto) % (1.0-10.0) Eosinophils (%) (Auto) % (0.0-3.0) Basophils (%) (Auto) % (0.0-2.0) Differential Total Cells Counted 100 Neutrophils % (Manual) 95 % (45-75) H Lymphocytes % (Manual) 3 % (20-45) L Monocytes % (Manual) 2 % (1-10) Eosinophils % (Manual) 0 % (0-3) Basophils % (Manual) 0 % (0-2) Band Neutrophils 0 % (0-8) Platelet Estimate Adequate Platelet Morphology Normal Polychromasia 1+ Anisocytosis 1+ Prothrombin Time 13.4 SEC (9.30-11.50) H Prothromb Time International Ratio 1.2 (0.9-1.1) H Hepatitis B Surface Antigen Pending Plan Problems: (1) Suspected 2019 novel coronavirus infection Assessment & Plan: A single one view chest is obtained. Vascular markings are indistinct. Bilateral alveolar densities noted likely multifocal infiltrates. Cardiomegaly is partially obscured . There are bilateral effusions. The bony thorax appear unremarkable. IMPRESSION: Bilateral infiltrates and effusions. (2) Anemia (3) Severe malnutrition Assessment & Plan: Pt presented on admission with partially opened Sacral DTPI. Base of wound is maroon an indurated with open area that is viable.(L) 8.5cm x (W)7cm..Base of scrotum is erythematous. L Heel is boggy with non-blanchable erythema. Unstageable Pressure injury R Heel (L)3cm x (W)3.5cm. Base of wound is 100% necrotic. Marginal erythema along borders. Periwound is boggy with non- Blanching erythema. No odor noted. Tx.Plan: Apply Moisture Barrier Paste to Sacrum. Cover with Optifoam drsg. Change every 3 days and prn. Apply Betadine to R heel. Cover with Optifoam drsg. Change every 3 days and prn. Apply Cavilon Skin Barrier to L Heel. Cover with Optifoam drsg. Change every 7 days and prn. Reposition at least every 2 hours or as tolerated. Off-load heels with Pillow. Place Pillow between knees. APM/JANAK Mattress overlay. (4) Renal failure (ARF), acute on chronic (5) Dehydration (6) Encounter for PEG (percutaneous endoscopic gastrostomy) (7) KELLEN (acute kidney injury) (8) Pancreatitis (9) Dyspnea (10) Bronchitis (11) Acute renal failure (12) Depression (13) Diabetes (14) Pneumonia (15) Acute respiratory failure (16) Atrial fibrillation (17) CAD (coronary artery disease) (18) Respiratory insufficiency (19) HTN (hypertension) (20) Metabolic encephalopathy (21) Acute on chronic renal failure (22) Sepsis Assessment & Plan: Leukocytosis, anemia, sepsis, abnormal labs. Renal insufficiency. Imaging with bilateral infiltrates. Respiratory insufficiency. On supplemental oxygen. COVID testing pending Complete examination performed undergoing extensive work-up for etiology. No acute surgical invention planned at this time. Follow recommendations thank you for let me participate patient's care Continue to biotics per infectious disease line placed HD today (23) History of COPD (24) HAP (hospital-acquired pneumonia) Tashi Garcia Mar 06, 2020 09:53
--- NOTE | 2020-03-06 10:58 | Nephrology Progress Note ---
Assessment/Plan Plan #Acute renal failure - likely ATN vs CRS 1 #hyperkalemia #Uremia #hypoxemic respiratory failure #Sepsis due to pneumonia #Leukocytosis #Acute on chronic CHF #afib with RVR #HTN #DM #Dementia #bipolar disorder - HD line placement today - and stat HD - spot dose of diuretics - monitor uop - sommers - strict I&Os - continue abx per ID - 2d echo - renal US - rate control per cardiology - asa - statin - BG control - monitor bp - FUll code Time spent 75 min > 50% on care coordination- Discussed with Dr. Alex at length -30 minutes of critical care time spent Subjective ROS Limited/Unobtainable: Yes Subjective persistent hypoxia Line placed for HD today Objective Objective Last 24 Hour Vital Signs Date Time Temp Pulse Resp B/P (MAP) Pulse Ox O2 Delivery O2 Flow Rate FiO2 03/06/20 08:00 10.0 03/06/20 08:00 Venturi Mask 10.0 Venturi Mask 15.0 03/06/20 08:00 97.9 79 30 127/56 (79) 93 03/06/20 07:42 89 03/06/20 04:00 Venturi Mask 10.0 Venturi Mask 15.0 03/06/20 04:00 98.6 93 30 117/56 (76) 93 03/06/20 04:00 10.0 03/06/20 03:27 90 03/06/20 00:00 98.8 99 30 123/63 (83) 93 03/06/20 00:00 Venturi Mask 10.0 Venturi Mask 15.0 03/05/20 23:28 99 03/05/20 21:00 10.0 03/05/20 20:00 98.6 105 30 128/65 (86) 93 03/05/20 20:00 Venturi Mask 10.0 Venturi Mask 15.0 03/05/20 19:05 102 03/05/20 16:00 Venturi Mask 10.0 Venturi Mask 10.0 03/05/20 16:00 96.9 108 29 127/65 (85) 100 03/05/20 16:00 10.0 03/05/20 15:16 103 03/05/20 12:00 96.8 93 35 129/51 (77) 100 03/05/20 12:00 10.0 03/05/20 12:00 Venturi Mask 10.0 Venturi Mask 10.0 03/05/20 11:35 96 Intake and Output 03/05/20 03/06/20 19:00 07:00 Intake Total 210.0 ml 645.0 ml Output Total 250 ml 250 ml Balance -40.0 ml 395.0 ml Intake Free Water 100 ml IV Total 110.0 ml 485.0 ml Tube Feeding 100 ml 60 ml Output Urine Total 250 ml 250 ml # Voids 1 # Bowel Movements 2 Laboratory Tests 03/05/20 14:33: Urine Color Yellow, Urine Appearance Clear, Urine pH 5, Urine Specific [place] 1.020, Urine Protein 2+H, Urine Glucose (UA) Negative, Urine Ketones Negative, Urine Blood Negative, Urine Nitrite Negative, Urine Bilirubin Negative, Urine Urobilinogen Normal, Urine Leukocyte Esterase Negative, Urine RBC 0, Urine WBC 0 -2, Urine Squamous Epithelial Cells None, Urine Bacteria Few, Urine Mucus FewH, Urine Random Sodium < 20L, Urine Creatinine 105.1 03/05/20 14:50: Prothrombin Time 13.0H, Prothromb Time International Ratio 1.2H 03/05/20 18:10: Sodium Level 143, Potassium Level 5.9H, Chloride Level 103, Carbon Dioxide Level 27, Anion Gap 13, Blood Urea Nitrogen 122H, Creatinine 3.1H, Estimat Glomerular Filtration Rate 19.2, Glucose Level 175H, Calcium Level 9.0, Phosphorus Level 6.4H, Magnesium Level 3.7H, Total Bilirubin 0.6, Aspartate Amino Transf (AST/SGOT) 59H, Alanine Aminotransferase (ALT/SGPT) 59, Alkaline Phosphatase 151H, Total Protein 7.3, Albumin 2.8L, Globulin 4.5, Albumin/ Globulin Ratio 0.6L, Random Vancomycin Level 13.8 03/06/20 03:45: Prothrombin Time 13.4H, Prothromb Time International Ratio 1.2H, Sodium Level 142, Potassium Level 5.2H, Chloride Level 101, Carbon Dioxide Level 28, Anion Gap 13, Blood Urea Nitrogen 130H, Creatinine 3.3H, Estimat Glomerular Filtration Rate 17.9, Glucose Level 270H, Calcium Level 8.5, Phosphorus Level 6.8H, Magnesium Level 3.6H, Total Bilirubin 0.6, Aspartate Amino Transf (AST/ SGOT) 69H, Alanine Aminotransferase (ALT/SGPT) 74, Alkaline Phosphatase 201H, Total Protein 6.7, Albumin 3.1L, Globulin 3.6, Albumin/Globulin Ratio 0.9L, White Blood Count 14.9H, Red Blood Count 2.63L, Hemoglobin 8.0L, Hematocrit 24.4L, Mean Corpuscular Volume 93, Mean Corpuscular Hemoglobin 30.3, Mean Corpuscular Hemoglobin Concent 32.6, Red Cell Distribution Width 14.4, Platelet Count 172, Mean Platelet Volume 6.5, Neutrophils (%) (Auto) , Lymphocytes (%) ( Auto) , Monocytes (%) (Auto) , Eosinophils (%) (Auto) , Basophils (%) (Auto) , Differential Total Cells Counted 100, Neutrophils % (Manual) 95H, Lymphocytes % (Manual) 3L, Monocytes % (Manual) 2, Eosinophils % (Manual) 0, Basophils % ( Manual) 0, Band Neutrophils 0, Platelet Estimate Adequate, Platelet Morphology Normal, Polychromasia 1+, Anisocytosis 1+, Hepatitis B Surface Antigen [Pending] Height (Feet): 5 Height (Inches): 8.00 Weight (Pounds): 201 Objective General Appearance: lethargic, confused, mild distress Lines, tubes and drains: peripheral HEENT: normocephalic Neck: non-tender, normal alignment, supple Respiratory/Chest: rhonchi - bilaterally Cardiovascular/Chest: normal peripheral pulses, systolic murmur, irregularly irregular Abdomen: normal bowel sounds, non tender, soft Extremities: non-tender, no edema Skin Exam: normal pigmentation Neurologic: disoriented Dean Reyes M.D. Mar 06, 2020 10:58
[2020-03-06] MEDS: Aspirin Baby 81mg GT SCH (11:31)
[2020-03-06] MEDS ORDERED: D5W 275ml ONE (12:26)
[2020-03-06] MEDS ORDERED: Tubing IV Secondary IV ONE (12:26)
[2020-03-06] MEDS ORDERED: Sodium Bicarbonate 8.4% 50ml Inj ONE (12:26)
[2020-03-06] MEDS ORDERED: Calcium Chloride 10% 10ml carpuject IVP ONE (12:26)
[2020-03-06] MEDS ORDERED: NS 275ml ONE (12:26)
--- NOTE | 2020-03-06 15:03 | Emergency Room Report ---
History of Present Illness General Chief Complaint: Dyspnea/Respdistress Source: Medical Record, PMD Present Illness HPI A CODE BLUE was called overhead to this patient's inpatient room. I was working the emergency department and I am completely unfamiliar with this patient. On arrival of the nursing staff were performing CPR and ACLS per protocol. The patient reportedly had a history of pneumonia and had underwent a dialysis catheter placement. He is also suspected COVID-19 infection. Allergies: Coded Allergies: No Known Allergies (Unverified , 12/09/13) COVID-19 Screening Contact w/high risk pt: Yes Recent Travel to affected area: No Experienced COVID-19 symptoms?: Yes COVID-19 symptoms experienced: Shortness of Breath, Cough COVID-19 Testing performed CAKE STRIPPER: Yes COVID-19 Screening: PUI COVID-19 COVID-19 Testing Source: Nasopharyngeal Nursing Documentation-[facility] Past Medical History: No History, Except For Hx Cardiac Problems: Yes - heart failure, a-fib, CAD, coronary artery bypass Hx Hypertension: Yes Hx COPD: Yes Hx Diabetes: Yes Hx Cancer: No Hx Gastrointestinal Problems: Yes - Dysphagia Hx Neurological Problems: Yes Hx Dementia: Yes Hx Weakness: Yes Hx Fatigue: Yes Physical Exam Vital Signs Date Time Temp Pulse Resp B/P (MAP) Pulse Ox O2 Delivery O2 Flow Rate FiO2 03/04/20 15:45 99.1 102 27 133/71 (91) 99 Nasal Cannula 4.0 03/04/20 16:47 50 Medical Decision Making Diagnostic Impression: Primary Impression: Cardiopulmonary arrest ER Course On my arrival, this patient was in asystole and undergoing CPR and ACLS per protocol. The patient underwent multiple rounds of ACLS and CPR and continued to have asystole. I felt that given the patient's age and comorbidities and the lack of response to ongoing resuscitation that further resuscitation was futile. Time of 10:21 AM. Last Vital Signs Date Time Temp Pulse Resp B/P (MAP) Pulse Ox O2 Delivery O2 Flow Rate FiO2 03/06/20 09:00 79 127/56 03/06/20 08:00 10.0 03/06/20 08:00 Venturi Mask Venturi Mask 03/06/20 08:00 97.9 30 93 03/04/20 19:13 50 Disposition: Condition: Referrals: Miguelangel Frederick MD (PCP) Rochelle Rossi DO Mar 06, 2020 15:03
[2020-03-06] MEDS ORDERED: Warfarin Sodium 4mg ORAL SCH (17:00)
--- NOTE | 2020-03-14 14:09 | Discharge Summary ---
Discharge Summary Hospital Course Date of Admission Mar 04, 2020 at 17:00 Date of Discharge Mar 06, 2020 at 12:27 Admitting Diagnosis PNEUMONIA HPI This is an 84-year-old male with a history of congestive heart failure, dementia , diabetes, hypertension, hyperlipidemia, peripheral vascular disease, bipolar disorder that presents to the emergency department from his correction facility with hypoxia found to be septic with bilateral PNA. Per [employer] at [facility] pt was noted to be progressively SOB yesterday and then became hypoxic in the afternoon at which time he was sent by EMS to the ED w/ sats in the 80s on supplemental oxygen. He was recently discharged form [facility] after admit for syncope w head trauma ( to 02/15), workup unremarkable for syncope and neg for ICH. TTE not able to be done as pt refused. His Lasix was stopped due to rise in Cr (1.4 to 1.56 on DC), unclear if pt has been off diuretics at [facility]. There were some lung opacities seen on CXR on 02/14 (See read below), ID and pulm did not think abx were necessary at that time and pt was rulled out for COVID w/ PCR neg x 2 24 hrs apart prior to dc back to SNF. In the ED pt was found to be afebrile, tachycardic, hds. CXR showed multifocal bilateral pna & bilateral effusion. Labs were sig for leukocytosis, hyperkalemia , mavis w/ Cr 2.7, Tn 0.13, bnp 32k, abg w/ resp acidosis pH 7.3/co 2 56. Pt was started empirically on vanco/cefepime, received insulin/d50/ca/kayexelate and admitted to stepdown unit. EKG was unremarkable per ED. Consultations Pulmonology Cardiology ID Nephrology General surgery Procedures none Hospital Course 84-year-old male with a history of congestive heart failure, dementia, diabetes , hypertension, hyperlipidemia, peripheral vascular disease, bipolar disorder that presents to the emergency department from his correction facility with hypoxia found to be septic with bilateral PNA. Patient was admitted to the hospital with presumed bilateral pneumonia in addition to congestive heart failure. It was very difficult to determine the patient's volume status. Echo was not available due to pending COVID status. Pt was started on the the therapy as outlined below. Unfortunately pt developed acute respiratory distress in addition to bradycardia on the monitor and went into cardiac arrest, resuscitative measures were not effective. #Cardiac arrest #PNA #Sepsis due to PNA #Hypoxic respiratory failure #Rule out COVID 19 #COPD - admit to in pt, PCU level of care - COVID 10 PCR neg 02/13 & 02/12 at [facility] prior to DC to SNF - CXR at [facility] 02/14 "Slight interval increase in pulmonary vascular congestion and right basilar opacities. 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 - hold home meds for now - neuro consult # Anemia - CTM - transfuse for Hb < 7.5 given CAD Time of note may not reflect time patient was seen. Discharge Discharge Vital Signs Last Vital Signs Date Time Temp Pulse Resp B/P (MAP) Pulse Ox O2 Delivery O2 Flow Rate FiO2 03/06/20 09:00 79 127/56 03/06/20 08:00 10.0 03/06/20 08:00 Venturi Mask Venturi Mask 03/06/20 08:00 97.9 30 93 Discharge Disposition Osmel Alex MD Mar 14, 2020 14:09
== END 2020-03-06 12:27 | disposition expired | DRG 720 ==
LOC: EDBD 15:35 → EMR 15:45 → 2W 17:00 → EDBEDREQ 18:10 → 2W 20:43
PROC: 5A12012 Performance of Cardiac Output, Single, Manual (ICD-10-PCS; principal; 2020-03-06)
PROC: 06HM33Z Insertion of Infusion Device into Right Femoral Vein, Percutaneous Approach (ICD-10-PCS; 2020-03-06)
DX: A41.9 Sepsis, unspecified organism (principal); J18.9 Pneumonia, unspecified organism; I21.4 Non-ST elevation (NSTEMI) myocardial infarction; I50.23 Acute on chronic systolic (congestive) heart failure; G92 Toxic encephalopathy; J96.01 Acute respiratory failure with hypoxia; I25.10 Atherosclerotic heart disease of native coronary artery without angina pectoris; Z95.1 Presence of aortocoronary bypass graft; E87.5 Hyperkalemia; F03.90 Unspecified dementia, unspecified severity, without behavioral disturbance, psychotic disturbance, mood disturbance, and anxiety; J44.9 Chronic obstructive pulmonary disease, unspecified; Z20.828 Contact with and (suspected) exposure to other viral communicable diseases; I48.0 Paroxysmal atrial fibrillation; F31.9 Bipolar disorder, unspecified; Z79.82 Long term (current) use of aspirin; Z79.4 Long term (current) use of insulin; R13.10 Dysphagia, unspecified; Z43.1 Encounter for attention to gastrostomy; E78.5 Hyperlipidemia, unspecified; I73.9 Peripheral vascular disease, unspecified; D64.9 Anemia, unspecified; E43 Unspecified severe protein-calorie malnutrition; L89.156 Pressure-induced deep tissue damage of sacral region; I13.0 Hypertensive heart and chronic kidney disease with heart failure and stage 1 through stage 4 chronic kidney disease, or unspecified chronic kidney disease; E11.22 Type 2 diabetes mellitus with diabetic chronic kidney disease; N18.9 Chronic kidney disease, unspecified; Y95 Nosocomial condition; E83.42 Hypomagnesemia
CPT/HCPCS: 36415; 36600; 71045; 76770; 80048; 80053; 80202; 81001; 81003; 82550; 82553; 82570; 82803; 82962; 83036; 83605; 83735; 83880; 84100; 84300; 84484; 85007; 85025; 85610; 86706; 87040; 87081; 93005; 93306; 94660; 94664; 96365; 99291; J0171; J1815; J7030